=== PATIENT | female | born 1955 | race Caucasian/White ===

== ENCOUNTER 2020-07-06 01:04 | Inpatient (IN) ==
[2020-07-06] MEDS ORDERED: SODIUM CHLORIDE 0.9% 1000ML 1,000 ML IV SCH (01:30)
[2020-07-06] MEDS ORDERED: ACETAMINOPHEN 1,000 MG/100 ML VIAL IV STA (01:36)
--- NOTE | 2020-07-06 01:50 | Emergency Department Note ---
History of Present Illness General Chief Complaint: Respiratory Problems Stated Complaint: HAVING A HARD TIME BREATHING Time Seen by Provider: 07/06/20 01:14 Source: patient Mode of arrival: ambulatory Limitations: no limitations History of Present Illness Provider Complaint: shortness of breath and chest pain Onset (ago): hour(s) (5) Severity: severe Consistency/Duration: + constant and + progressively worsening Maximum Pain Intensity: 8 Current Pain Intensity: 8 Relieved By: + oxygen, + rest and + upright position Exacerbated By: + lying flat, + exertion, + movement, + coughing and + inspiration Known history of: other (pleurisy) Associated symptoms: + chest pain Treatment prior to arrival: none HPI Narrative: This 65-year-old female patient with significant past medical history of pleurisy presents to the emergency department today for evaluation of shortness of breath. The patient states symptoms began suddenly at 8 PM. She states she has been intermittently feeling short of breath with cough and congestion since March when her was diagnosed with COVID-19. The patient states she got tested at that time due to a headache and cough and was negative. The patient reports sudden onset at 8 PM this evening of substernal chest pain radiating to the upper back which she describes as a ripping type of sensation. Patient reports fever, chills, cough productive of sputum. She denies any hemoptysis. No nausea or vomiting. No hematemesis. No abdominal pa in or flank pain. No diarrhea or constipation. Patient is a current smoker but has been limiting her cigarette use to 8 to 9 cigarettes/day. She does admit to drinking at least 5-6 beers daily. Patient denies any history of PE or DVT. She denies any history of known aneurysm. She denies cardiac history. Related Data Home oxygen amount: none Home Medications Medication Instructions Recorded Confirmed Type atorvastatin 10 mg PO DAILY 07/06/20 07/06/20 History hydrochlorothiazide 25 mg PO DAILY 07/06/20 07/06/20 History levothyroxine 75 mcg PO DAILY 07/06/20 07/06/20 History pantoprazole 20 mg PO DAILY 07/06/20 07/06/20 History Allergies Allergy/AdvReac Type Severity Reaction Status Date / Time No Known Allergies Allergy Unverified 07/06/20 02:56 Past Med/Surg History Medical History GERD (gastroesophageal reflux disease) Hypertension Hypothyroidism Social History Smoking Status: Current every day smoker Preferred Language: Faroese Feels Safe at Home: Yes Review of Systems A total of 10 systems reviewed and were otherwise negative Physical Exam Vital Signs: Vital Signs - 24 hr 07/06/20 01:06 07/06/20 01:17 07/06/20 01:45 Temperature 37.6 C H Temperature Source Temporal Artery Sc an Pulse Rate 135 H Pulse Rate [Apical ] Pulse Rate from Sp O2 Sensor Respiratory Rate 24 Respiratory Effort / Characteristics Non-Labored Respiratory Patter n Regular Blood Pressure 143/83 H Blood Pressure Sallie n 103 Pulse Oximetry 91 84 L Pulse Oximetry [Ex ercises] Pulse Oximetry [Re covery] Oxygen Delivery Me thod Room Air Room Air Nasal Cannula Oxygen Flow Rate 3 Sepsis Recent Feve r Within 48 Hours Yes Sepsis New/Unexpla ined Change in Men karla Status No Sepsis Action Take n by Nursing Physician Notified Oxygen Flow Rate - Titration 3 Pulse Oximetry Pos t Tiitration 97 07/06/20 01:46 07/06/20 01:54 07/06/20 02:00 Temperature Temperature Source Pulse Rate 120 H 119 H Pulse Rate [Apical ] Pulse Rate from Sp O2 Sensor 122 H 120 H Respiratory Rate 19 22 24 Respiratory Effort / Characteristics Non-Labored Respiratory Patter n Blood Pressure 115/81 96/70 L Blood Pressure Sallie n 92 78 Pulse Oximetry 98 99 98 Pulse Oximetry [Ex ercises] Pulse Oximetry [Re covery] Oxygen Delivery Me thod Nasal Cannula Nasal Cannula Nasal Cannula Oxygen Flow Rate 3 3 3 Sepsis Recent Feve r Within 48 Hours Sepsis New/Unexpla ined Change in Men karla Status Sepsis Action Take n by Nursing Oxygen Flow Rate - Titration Pulse Oximetry Pos t Tiitration 07/06/20 02:08 07/06/20 02:15 07/06/20 02:30 Temperature Temperature Source Pulse Rate 114 H 112 H Pulse Rate [Apical ] Pulse Rate from Sp O2 Sensor 113 H 109 H Respiratory Rate 21 22 19 Respiratory Effort / Characteristics Non-Labored Respiratory Patter n Blood Pressure 97/73 L 93/80 L Blood Pressure Sallie n 81 84 Pulse Oximetry 97 95 97 Pulse Oximetry [Ex ercises] Pulse Oximetry [Re covery] Oxygen Delivery Me thod Nasal Cannula Nasal Cannula Room Air Oxygen Flow Rate 3 3 Sepsis Recent Feve r Within 48 Hours Sepsis New/Unexpla ined Change in Men karla Status Sepsis Action Take n by Nursing Oxygen Flow Rate - Titration Pulse Oximetry Pos t Tiitration 07/06/20 02:32 07/06/20 02:37 07/06/20 03:14 Temperature 37.2 C Temperature Source Oral Pulse Rate 105 H Pulse Rate [Apical ] Pulse Rate from Sp O2 Sensor 103 H Respiratory Rate 20 Respiratory Effort / Characteristics Non-Labored Sponta neous Respiratory Patter n Blood Pressure 115/68 Blood Pressure Sallie n 83 Pulse Oximetry 99 97 Pulse Oximetry [Ex ercises] 84 L Pulse Oximetry [Re covery] 90 Oxygen Delivery Me thod Nasal Cannula Room Air Oxygen Flow Rate 3 3 Sepsis Recent Feve r Within 48 Hours Sepsis New/Unexpla ined Change in Men karla Status Sepsis Action Take n by Nursing Oxygen Flow Rate - Titration Pulse Oximetry Pos t Tiitration 07/06/20 03:15 07/06/20 03:30 07/06/20 03:36 Temperature Temperature Source Pulse Rate 95 H 89 92 H Pulse Rate [Apical ] Pulse Rate from Sp O2 Sensor 95 H 89 93 H Respiratory Rate 19 20 20 Respiratory Effort / Characteristics Respiratory Patter n Blood Pressure 88/64 L 93/63 L 91/69 L Blood Pressure Sallie n 72 73 76 Pulse Oximetry 96 96 97 Pulse Oximetry [Ex ercises] Pulse Oximetry [Re covery] Oxygen Delivery Me thod Nasal Cannula Nasal Cannula Nasal Cannula Oxygen Flow Rate 3 3 3 Sepsis Recent Feve r Within 48 Hours Sepsis New/Unexpla ined Change in Men karla Status Sepsis Action Take n by Nursing Oxygen Flow Rate - Titration Pulse Oximetry Pos t Tiitration 07/06/20 03:59 07/06/20 04:01 07/06/20 04:31 Temperature Temperature Source Pulse Rate 91 H 84 Pulse Rate [Apical ] 87 Pulse Rate from Sp O2 Sensor 91 H 96 H Respiratory Rate 16 15 20 Respiratory Effort / Characteristics Non-Labored Sponta neous Respiratory Patter n Blood Pressure 93/59 L 109/69 Blood Pressure Sallie n 70 82 Pulse Oximetry 95 98 93 Pulse Oximetry [Ex ercises] Pulse Oximetry [Re covery] Oxygen Delivery Me thod Nasal Cannula Nasal Cannula Nasal Cannula Oxygen Flow Rate 3 3 3 Sepsis Recent Feve r Within 48 Hours Sepsis New/Unexpla ined Change in Men karla Status Sepsis Action Take n by Nursing Oxygen Flow Rate - Titration Pulse Oximetry Pos t Tiitration Physical Exam: VITALS: Vitals are noted on the nurse's note and reviewed by myself. Patient is tachycardic with a heart rate in the 130s. O2 saturation 84% on room air. Temperature 37.6 C. BP 143/83. GENERAL: This is a 65-year-old white female, short of breath but in no acute distress, nondiaphoretic, well-developed well-nourished. SKIN: The skin was without rashes, erythema, edema, or bruising. There is no tenting of the skin. Capillary refill less than 2 seconds. HEAD: Normocephalic atraumatic. EYES: Conjunctivae without injection, sclerae without icterus. NECK: Supple without nuchal rigidity. No lymphadenopathy. No JVD. HEART: Regular rate and rhythm without murmurs gallops or rubs. LUNGS: Clear to auscultation bilaterally without wheezes, rales or rhonchi. No retractions or accessory muscle use. ABDOMEN: Positive bowel sounds x 4. Soft, nontender, without masses or organomegaly. Muller sign negative. No guarding or rebound tenderness. MUSCULOSKELETAL: No muscle atrophy, erythema, or edema noted. Full range of motion without joint tenderness in all extremities. No tenderness to palpation. Normal gait. Strength 5/5 throughout. NEURO: Patient was alert and oriented to person place and time. No focal neurological deficits. Course Course The patient was seen and evaluated as above. An order was placed for continuous cardiac monitoring. The monitor shows a sinus tachycardia at a rate of 130 bpm. IV access obtained, labs drawn. Patient medicated with IV fluids and acetaminophen. X-ray imaging performed and reviewed by myself as noted. Labs reviewed by myself. CT imaging performed and reviewed by myself and radiologist as noted. I discussed the findings with the patient at bedside. She was reassessed and is feeling somewhat better. Heart rate is improving and in the 90s. I discussed the case with my attending. She did see and evaluate the patient. Patient medicated with a DuoNeb treatment. She was medicated with cefepime. I discussed the case with Dr. Barth, [facility] hospitalist physician. He did agree to see and evaluate the patient for admission. Administered Medications Magnesium Sulfate/Dextrose (Magnesium Sulfate / D5w) 1 gm in 100 mls @ 50 mls/h r IV NOW STA Stop: 07/06/20 05:23 Last Admin: 07/06/20 03:37 Dose: 50 mls/hr Documented by: [id number] Discontinued Medications Albuterol (Albut/Ipratrop 3mg/0.5mg Neb 3 Ml Vial) 3 ml NEB NOW STA Stop: 07/06/20 03:24 Last Admin: 07/06/20 03:57 Dose: 3 ml Documented by: [id number] Cefepime HCl (Cefepime 2,000 Mg/20 Ml Vial) Confirm Administered Dose 2,000 mg .ROUTE .STK-MED ONE Stop: 07/06/20 04:24 Last Admin: 07/06/20 04:37 Dose: 2,000 mg Documented by: [id number] Sodium Chloride (Nss 1000ml) 1,000 mls @ 999 mls/hr IV .Q1H1M NAINA Stop: 07/06/20 02:30 Last Infusion: 07/06/20 03:21 Dose: 0 mls/hr Documented by: [id number] Admin: 07/06/20 01:55 Dose: 999 mls/hr Documented by: [id number] Acetaminophen (Ofirmev) 1,000 mg in 100 mls @ 400 mls/hr IV NOW STA Stop: 07/06/20 01:50 Last Infusion: 07/06/20 02:10 Dose: 0 mls/hr Documented by: [id number] Admin: 07/06/20 01:55 Dose: 400 mls/hr Documented by: [id number] Cefepime HCl (Maxipime) 2,000 mg in 20 mls @ 5 mls/min IV NOW STA; Protocol Stop: 07/06/20 03:03 Last Admin: 07/06/20 04:37 Dose: Not Given Documented by: [id number] Doxycycline Hyclate 100 mg/ (Dextrose) 110 mls @ 50 mls/hr IV NOW STA Stop: 07/06/20 05:31 Last Admin: 07/06/20 03:51 Dose: Not Given Documented by: [id number] Ioversol (Optiray 320 125ml) 125 ml IV ONCE ONE Stop: 07/06/20 03:00 Last Admin: 07/06/20 02:59 Dose: 118 ml Documented by: [id number] Ipratropium [place] (Ipratropium [place] Neb Soln 0.02% 2.5 Ml Vial) 0.5 mg INH NOW STA Stop: 07/06/20 03:25 Last Admin: 07/06/20 03:57 Dose: Not Given Documented by: [id number] Levalbuterol HCl (Levalbuterol 1.25mg/0.5ml Neb) 1.25 mg INH NOW STA Stop: 07/06/20 03:25 Last Admin: 07/06/20 03:57 Dose: Not Given Documented by: [id number] Methylprednisolone (Methylprednisolone 40 Mg/Ml Vial) 40 mg IV NOW STA Stop: 07/06/20 03:21 Last Admin: 07/06/20 03:37 Dose: 40 mg Documented by: [id number] Potassium Chloride (Potassium Chloride Crtab 20 Meq Tabcr) 40 meq PO NOW STA Stop: 07/06/20 03:22 Last Admin: 07/06/20 03:37 Dose: 40 meq Documented by: [id number] Medical Decision Making Differential Diagnosis + acute exacerbation of chronic obstructive airways disease, + congestive heart failure, + community acquired pneumonia, + asthma with exacerbation, + pulmonary embolism, + COPD, + bronchitis, + pneumothorax, + pneumonia, + pleural effusion, + CHF, + ACS and + aspiration Home Medications Current Medication List: was personally reviewed by me Laboratory Data Attestation: I reviewed the patient's lab results. Leukocytosis of 23,000. No significant anemia or thrombocytopenia. Coags normal. Renal, hepatic function and electrolytes without significant abnormality. Troponin negative. Lactic acid 1.3. Urinalysis negative for evidence of infection. Blood cultures pending. Result diagrams: 07/06/20 01:56 07/06/20 01:56 Lab Results 07/06/20 07/06/20 07/06/20 Range/Units 01:54 01:54 01:54 WBC (4.8-10.8) K/uL RBC (4.2-5.4) M/uL Hgb (12.0-16.0) g/dL POC Hgb (12.0-16.0) g/dl Hct (37-47) % POC Hct (37-47) % MCV (80-100) fL MCH (25-34) pg MCHC (32-36) g/dL RDW Std Deviation (36.4-46.3) fL RDW Coeff of Angela (11.5-14.5) % Plt Count (130-400) K/uL MPV (7.4-10.4) fL Immature Gran % (Auto) % Neut % (Auto) % Lymph % (Auto) % [place] % (Auto) % Eos % (Auto) % Baso % (Auto) % Neut # (Auto) (1.4-6.5) K/uL Lymph # (Auto) (1.2-3.4) K/uL [place] # (Auto) (0.11-0.59) K/uL Eos # (Auto) (0-0.5) K/uL Baso # (Auto) (0-0.2) K/uL Immature Gran # (Auto) (0.00-0.02) K/uL PT (9.0-12.0) Seconds INR (0.9-1.1) APTT (21.0-31.0) Seconds PTT Ratio ABG pH (7.35-7.45) ABG pCO2 (35-46) mmHg ABG pO2 (80-95) mmHg ABG HCO3 (19-24) mmol/L ABG O2 Saturation (90-95) % ABG Base Excess (-9-1.8) mEq/L Rian Test (Pos) Oxygen Given POC Sodium (135-144) mmol/L Sodium (136-145) mmol/L POC Potassium (3.3-5.0) mmol/L Potassium (3.5-5.1) mmol/L POC Chloride (101-112) mmol/L Chloride (98-107) mmol/L Carbon Dioxide (21-32) mmol/L POC Total CO2 (24-31) mmol/L Anion Gap (3-11) POC Anion Gap (16-25) mmol/L POC BUN (7-18) mg/dl BUN (7-18) mg/dl Creatinine (0.6-1.2) mg/dl POC Creatinine (0.6-1.3) mg/dl Est Cr Clr Drug Dosing ml/min Est GFR ( Amer) Est GFR (Non-Af Amer) BUN/Creatinine Ratio (10-20) Glucose (70-99) mg/dl POC Glucose (other) (70-99) mg/dl Lactate (0.4-2.0) mmol/L Calcium (8.5-10.1) mg/dl POC Ioniz Calcium Semaj (1.12-1.32) mmol/l Magnesium (1.8-2.4) mg/dl Total Bilirubin (0.2-1) mg/dl AST (15-37) U/L ALT (12-78) U/L Alkaline Phosphatase (45-117) U/L Troponin I (0-0.045) ng/ml Total Protein (6.4-8.2) gm/dl Albumin (3.4-5.0) gm/dl Globulin (2.5-4.0) gm/dl Albumin/Globulin Ratio (0.9-2) Procalcitonin (0-0.5) ng/ml Urine Color Urine Appearance (Clear) Urine pH (4.5-7.5) Ur Specific [place] (1.000-1.030) Urine Protein (Negative) Urine Glucose (UA) (Negative) Urine Ketones (Negative) Urine Blood (Negative) Urine Nitrite (Negative) Urine Bilirubin (Negative) Urine Urobilinogen (Negative) Ur Leukocyte Esterase (Negative) Urine WBC (Auto) (0-5) /hpf Urine RBC (Auto) (0-4) /hpf U Hyaline Cast (Auto) (0-5) /lpf U Epithel Cells (Auto) (0-5) /lpf Urine Bacteria (Auto) (Negative) Ethyl Alcohol mg/dL (0-3) mg/dl COVID-19 Eval Order CovFluRsv at [facility] SARS-CoV-2 (PCR) NEGATIVE (Negative) Influenza Type A (PCR) Negative (Neg) Influ A Molecular Assay Cancelled Influenza Type B (PCR) Negative (Neg) Influ B Molecular Assay Cancelled RSV (RT-PCR) Negative (Neg) 07/06/20 07/06/20 07/06/20 Range/Units 01:54 01:56 01:56 WBC 23.67 H (4.8-10.8) K/uL RBC 4.86 (4.2-5.4) M/uL Hgb 16.2 H (12.0-16.0) g/dL POC Hgb (12.0-16.0) g/dl Hct 45.1 (37-47) % POC Hct (37-47) % MCV 92.8 (80-100) fL MCH 33.3 (25-34) pg MCHC 35.9 (32-36) g/dL RDW Std Deviation 44.5 (36.4-46.3) fL RDW Coeff of Angela 13.0 (11.5-14.5) % Plt Count 335 (130-400) K/uL MPV 9.9 (7.4-10.4) fL Immature Gran % (Auto) 0.3 % Neut % (Auto) 92.9 % Lymph % (Auto) 1.9 % [place] % (Auto) 4.5 % Eos % (Auto) 0.2 % Baso % (Auto) 0.2 % Neut # (Auto) 21.97 H (1.4-6.5) K/uL Lymph # (Auto) 0.46 L (1.2-3.4) K/uL [place] # (Auto) 1.07 H (0.11-0.59) K/uL Eos # (Auto) 0.05 (0-0.5) K/uL Baso # (Auto) 0.04 (0-0.2) K/uL Immature Gran # (Auto) 0.08 H (0.00-0.02) K/uL PT (9.0-12.0) Seconds INR (0.9-1.1) APTT (21.0-31.0) Seconds PTT Ratio ABG pH (7.35-7.45) ABG pCO2 (35-46) mmHg ABG pO2 (80-95) mmHg ABG HCO3 (19-24) mmol/L ABG O2 Saturation (90-95) % ABG Base Excess (-9-1.8) mEq/L Rian Test (Pos) Oxygen Given POC Sodium (135-144) mmol/L Sodium 140 (136-145) mmol/L POC Potassium (3.3-5.0) mmol/L Potassium 3.2 L (3.5-5.1) mmol/L POC Chloride (101-112) mmol/L Chloride 105 (98-107) mmol/L Carbon Dioxide 28 (21-32) mmol/L POC Total CO2 (24-31) mmol/L Anion Gap 7.0 (3-11) POC Anion Gap (16-25) mmol/L POC BUN (7-18) mg/dl BUN 8 (7-18) mg/dl Creatinine 0.64 (0.6-1.2) mg/dl POC Creatinine (0.6-1.3) mg/dl Est Cr Clr Drug Dosing 77.7 ml/min Est GFR ( Amer) 110.1 Est GFR (Non-Af Amer) 95.0 BUN/Creatinine Ratio 12.8 (10-20) Glucose 154 H (70-99) mg/dl POC Glucose (other) (70-99) mg/dl Lactate (0.4-2.0) mmol/L Calcium 9.0 (8.5-10.1) mg/dl POC Ioniz Calcium Semaj (1.12-1.32) mmol/l Magnesium 1.9 (1.8-2.4) mg/dl Total Bilirubin 0.4 (0.2-1) mg/dl AST 26 (15-37) U/L ALT 52 (12-78) U/L Alkaline Phosphatase 89 (45-117) U/L Troponin I < 0.015 (0-0.045) ng/ml Total Protein 8.2 (6.4-8.2) gm/dl Albumin 4.2 (3.4-5.0) gm/dl Globulin 4.0 (2.5-4.0) gm/dl Albumin/Globulin Ratio 1.1 (0.9-2) Procalcitonin < 0.05 (0-0.5) ng/ml Urine Color Urine Appearance (Clear) Urine pH (4.5-7.5) Ur Specific [place] (1.000-1.030) Urine Protein (Negative) Urine Glucose (UA) (Negative) Urine Ketones (Negative) Urine Blood (Negative) Urine Nitrite (Negative) Urine Bilirubin (Negative) Urine Urobilinogen (Negative) Ur Leukocyte Esterase (Negative) Urine WBC (Auto) (0-5) /hpf Urine RBC (Auto) (0-4) /hpf U Hyaline Cast (Auto) (0-5) /lpf U Epithel Cells (Auto) (0-5) /lpf Urine Bacteria (Auto) (Negative) Ethyl Alcohol mg/dL (0-3) mg/dl COVID-19 Eval Order SARS-CoV-2 (PCR) (Negative) Influenza Type A (PCR) (Neg) Influ A Molecular Assay Influenza Type B (PCR) (Neg) Influ B Molecular Assay RSV (RT-PCR) (Neg) 07/06/20 07/06/20 07/06/20 Range/Units 01:56 01:56 02:05 WBC (4.8-10.8) K/uL RBC (4.2-5.4) M/uL Hgb (12.0-16.0) g/dL POC Hgb 17.0 H (12.0-16.0) g/dl Hct (37-47) % POC Hct 50 H (37-47) % MCV (80-100) fL MCH (25-34) pg MCHC (32-36) g/dL RDW Std Deviation (36.4-46.3) fL RDW Coeff of Angela (11.5-14.5) % Plt Count (130-400) K/uL MPV (7.4-10.4) fL Immature Gran % (Auto) % Neut % (Auto) % Lymph % (Auto) % [place] % (Auto) % Eos % (Auto) % Baso % (Auto) % Neut # (Auto) (1.4-6.5) K/uL Lymph # (Auto) (1.2-3.4) K/uL [place] # (Auto) (0.11-0.59) K/uL Eos # (Auto) (0-0.5) K/uL Baso # (Auto) (0-0.2) K/uL Immature Gran # (Auto) (0.00-0.02) K/uL PT 9.9 (9.0-12.0) Seconds INR 1.0 (0.9-1.1) APTT 25.3 (21.0-31.0) Seconds PTT Ratio 1.0 ABG pH (7.35-7.45) ABG pCO2 (35-46) mmHg ABG pO2 (80-95) mmHg ABG HCO3 (19-24) mmol/L ABG O2 Saturation (90-95) % ABG Base Excess (-9-1.8) mEq/L Rian Test (Pos) Oxygen Given POC Sodium 140 (135-144) mmol/L Sodium (136-145) mmol/L POC Potassium 3.3 (3.3-5.0) mmol/L Potassium (3.5-5.1) mmol/L POC Chloride 98 L (101-112) mmol/L Chloride (98-107) mmol/L Carbon Dioxide (21-32) mmol/L POC Total CO2 30 (24-31) mmol/L Anion Gap (3-11) POC Anion Gap 16.0 (16-25) mmol/L POC BUN 8 (7-18) mg/dl BUN (7-18) mg/dl Creatinine (0.6-1.2) mg/dl POC Creatinine 0.4 L (0.6-1.3) mg/dl Est Cr Clr Drug Dosing ml/min Est GFR ( Amer) Est GFR (Non-Af Amer) BUN/Creatinine Ratio (10-20) Glucose (70-99) mg/dl POC Glucose (other) 159 H (70-99) mg/dl Lactate 1.3 (0.4-2.0) mmol/L Calcium (8.5-10.1) mg/dl POC Ioniz Calcium Semaj 1.14 (1.12-1.32) mmol/l Magnesium (1.8-2.4) mg/dl Total Bilirubin (0.2-1) mg/dl AST (15-37) U/L ALT (12-78) U/L Alkaline Phosphatase (45-117) U/L Troponin I (0-0.045) ng/ml Total Protein (6.4-8.2) gm/dl Albumin (3.4-5.0) gm/dl Globulin (2.5-4.0) gm/dl Albumin/Globulin Ratio (0.9-2) Procalcitonin (0-0.5) ng/ml Urine Color Urine Appearance (Clear) Urine pH (4.5-7.5) Ur Specific [place] (1.000-1.030) Urine Protein (Negative) Urine Glucose (UA) (Negative) Urine Ketones (Negative) Urine Blood (Negative) Urine Nitrite (Negative) Urine Bilirubin (Negative) Urine Urobilinogen (Negative) Ur Leukocyte Esterase (Negative) Urine WBC (Auto) (0-5) /hpf Urine RBC (Auto) (0-4) /hpf U Hyaline Cast (Auto) (0-5) /lpf U Epithel Cells (Auto) (0-5) /lpf Urine Bacteria (Auto) (Negative) Ethyl Alcohol mg/dL (0-3) mg/dl COVID-19 Eval Order SARS-CoV-2 (PCR) (Negative) Influenza Type A (PCR) (Neg) Influ A Molecular Assay Influenza Type B (PCR) (Neg) Influ B Molecular Assay RSV (RT-PCR) (Neg) 07/06/20 07/06/20 07/06/20 Range/Units 03:18 03:59 03:59 WBC (4.8-10.8) K/uL RBC (4.2-5.4) M/uL Hgb (12.0-16.0) g/dL POC Hgb (12.0-16.0) g/dl Hct (37-47) % POC Hct (37-47) % MCV (80-100) fL MCH (25-34) pg MCHC (32-36) g/dL RDW Std Deviation (36.4-46.3) fL RDW Coeff of Angela (11.5-14.5) % Plt Count (130-400) K/uL MPV (7.4-10.4) fL Immature Gran % (Auto) % Neut % (Auto) % Lymph % (Auto) % [place] % (Auto) % Eos % (Auto) % Baso % (Auto) % Neut # (Auto) (1.4-6.5) K/uL Lymph # (Auto) (1.2-3.4) K/uL [place] # (Auto) (0.11-0.59) K/uL Eos # (Auto) (0-0.5) K/uL Baso # (Auto) (0-0.2) K/uL Immature Gran # (Auto) (0.00-0.02) K/uL PT (9.0-12.0) Seconds INR (0.9-1.1) APTT (21.0-31.0) Seconds PTT Ratio ABG pH 7.37 (7.35-7.45) ABG pCO2 45 (35-46) mmHg ABG pO2 68 L (80-95) mmHg ABG HCO3 25 H (19-24) mmol/L ABG O2 Saturation 94.2 (90-95) % ABG Base Excess -0.3 (-9-1.8) mEq/L Rian Test Pos (Pos) Oxygen Given 3L POC Sodium (135-144) mmol/L Sodium (136-145) mmol/L POC Potassium (3.3-5.0) mmol/L Potassium (3.5-5.1) mmol/L POC Chloride (101-112) mmol/L Chloride (98-107) mmol/L Carbon Dioxide (21-32) mmol/L POC Total CO2 (24-31) mmol/L Anion Gap (3-11) POC Anion Gap (16-25) mmol/L POC BUN (7-18) mg/dl BUN (7-18) mg/dl Creatinine (0.6-1.2) mg/dl POC Creatinine (0.6-1.3) mg/dl Est Cr Clr Drug Dosing ml/min Est GFR ( Amer) Est GFR (Non-Af Amer) BUN/Creatinine Ratio (10-20) Glucose (70-99) mg/dl POC Glucose (other) (70-99) mg/dl Lactate (0.4-2.0) mmol/L Calcium (8.5-10.1) mg/dl POC Ioniz Calcium Semaj (1.12-1.32) mmol/l Magnesium (1.8-2.4) mg/dl Total Bilirubin (0.2-1) mg/dl AST (15-37) U/L ALT (12-78) U/L Alkaline Phosphatase (45-117) U/L Troponin I (0-0.045) ng/ml Total Protein (6.4-8.2) gm/dl Albumin (3.4-5.0) gm/dl Globulin (2.5-4.0) gm/dl Albumin/Globulin Ratio (0.9-2) Procalcitonin (0-0.5) ng/ml Urine Color Yellow Urine Appearance Clear (Clear) Urine pH 6.0 (4.5-7.5) Ur Specific [place] > 1.045 H (1.000-1.030) Urine Protein Trace H (Negative) Urine Glucose (UA) Negative (Negative) Urine Ketones Negative (Negative) Urine Blood Trace H (Negative) Urine Nitrite Negative (Negative) Urine Bilirubin Negative (Negative) Urine Urobilinogen Negative (Negative) Ur Leukocyte Esterase Negative (Negative) Urine WBC (Auto) 1-5 (0-5) /hpf Urine RBC (Auto) 5-10 H (0-4) /hpf U Hyaline Cast (Auto) 1-5 (0-5) /lpf U Epithel Cells (Auto) 20-30 H (0-5) /lpf Urine Bacteria (Auto) Negative (Negative) Ethyl Alcohol mg/dL < 3.0 (0-3) mg/dl COVID-19 Eval Order SARS-CoV-2 (PCR) (Negative) Influenza Type A (PCR) (Neg) Influ A Molecular Assay Influenza Type B (PCR) (Neg) Influ B Molecular Assay RSV (RT-PCR) (Neg) Imaging Data Attestation: I personally reviewed and interpreted this imaging study as follows: My Impression: Chest x-ray. Findings: A chest x-ray was performed and revealed no pneumothorax, effusion, infiltrate, pulmonary edema, free air under the diaphragm, or wide mediastinum. Radiologist's Impression: CTA OTHER - CTA CHEST FOR DISSECTION WO/WITH: No thoracic aortic aneurysm or dissection. No evidence for acute intramural hematoma. Diffuse aortic atherosclerosis. No CT evidence for pulmonary embolism. The lungs are moderately emphysematous. Mild bilateral parenchymal scarring. 6 mm left upper lobe nodule. No acute consolidation. No pathologic intrathoracic lymphadenopathy. Fatty liver. 12 mm left hepatic hypodensity which maybe a cyst. 1.6 cm left adrenal nodule. Multilevel degenerative changes of the thoracic spine. Radiologist: Clifton Braxton M.D. ECG Data Attestation: I personally reviewed and interpreted this ECG as follows: Prior ECG tracings: not available for review Interpretation: Normal sinus rhythm with ventricular rate of 100 bpm. There is occasional PVCs noted. Prolonged QT with a QTC of 492. No ST elevation or depression. No T wave inversion. Blood Pressure Blood Pressure Findings: Low blood pressure Blood Pressure Disposition: further management by hospitalist NEVA Narrative This 65-year-old female patient presents to the emergency department today for evaluation of dyspnea. Upon arrival, patient was found to be hypoxic. She was tachycardic with a heart rate of 130 bpm. Patient's dyspnea is positional in nature, she is having difficulty lying flat. Patient was hydrated with IV fluids. Labs with a leukocytosis of 23,000. COVID-19 testing and influenza testing negative. She was ultimately medicated with cefepime due to sepsis, though unclear source - suspect pulmonary. CT imaging performed to rule out dissection or PE given her complaints of chest and back pain and a ripping sensation. This was negative for dissection or PE, but the patient was found to have emphysematous changes within her lungs. She is a long-term smoker. She does also admit to drinking approximately 6 beers per day. Patient will be admitted to the hospitalist service for further evaluation management of her symptoms. Please see hospitalist dictation regarding ongoing management care of this patient. The chart was completed utilizing SwitchNote Speech voice recognition software. Grammatical errors, random word insertions, pronoun errors, and incomplete sentences are an occasional consequence of this system due to software limitations, ambient noise, and hardware issues. Any formal questions or c oncerns about the content, text, or information contained within the body of this dictation should be directly addressed to the provider for clarification. Impression & Plan Sepsis, Hypoxia, Tachycardia Discharge Plan Visit Data Chief Complaint: Respiratory Problems Stated Complaint: HAVING A HARD TIME BREATHING ED Provider: [facility] Mid[facility] Provider: Liliane Booker Discharge Problem: Sepsis, Hypoxia, Tachycardia Patient Disposition: Admitted As Inpatient Discharge Instructions Interventions: ED Discharge Assessment Last Done: 07/06/20 04:34 Forms Stand Alone Forms: [employer] Prescriptions Prescriptions: No Action atorvastatin 10 mg tablet 10 mg PO DAILY RF: 0 pantoprazole 20 mg tablet,delayed release (DR/EC) 20 mg PO DAILY RF: 0 levothyroxine 75 mcg tablet 75 mcg PO DAILY RF: 0 hydrochlorothiazide 25 mg tablet 25 mg PO DAILY RF: 0 Referrals Referrals: Liliane Pena DO [Primary Care Provider] -
[2020-07-06 02:08] LABS: Hematocrit (blood only) 45.1 % (37-47); Hemoglobin 16.2 g/dL (12.0-16.0); Mean Corpuscular Hemoglobin 33.3 pg (25-34); Mean Corpuscular Hgb Conc 35.9 g/dL (32-36); Mean Corpuscular Volume 92.8 fL (80-100); Mean Platelet Volume 9.9 fL (7.4-10.4); Platelet Count 335 K/uL (130-400); RDW Standard Deviation 44.5 fL (36.4-46.3); Red Blood Count 4.86 M/uL (4.2-5.4); White Blood Count 23.67 K/uL (4.8-10.8)
[2020-07-06 02:17] LABS: iSTAT Creatinine 0.4 mg/dl (0.6-1.3); iSTAT Ionized Calcium 1.14 mmol/l (1.12-1.32); iSTAT Potassium 3.3 mmol/L (3.3-5.0)
[2020-07-06 02:23] LABS: Partial Thromboplastin Time 25.3 Seconds (21.0-31.0); Prothrombin Time 9.9 Seconds (9.0-12.0)
[2020-07-06 02:26] LABS: Alanine Aminotransferase 52 U/L (12-78); Albumin Level 4.2 gm/dl (3.4-5.0); Aspartate Aminotransferase 26 U/L (15-37); BUN Creatinine Ratio 12.8 (10-20); Blood Urea Nitrogen 8 mg/dl (7-18); Carbon Dioxide 28 mmol/L (21-32); Chloride 105 mmol/L (98-107); Creatinine Clr Calc Pharmacy 77.7 ml/min; Est GFR (African American) 110.1; Glucose 154 mg/dl (70-99); Magnesium 1.9 mg/dl (1.8-2.4); Potassium 3.2 mmol/L (3.5-5.1); Sodium 140 mmol/L (136-145)
[2020-07-06 02:30] LABS: Albumin Globulin Ratio 1.1 (0.9-2); Alkaline Phosphatase 89 U/L (45-117); Bilirubin,Total 0.4 mg/dl (0.2-1); Total Protein 8.2 gm/dl (6.4-8.2); Troponin I < 0.015 ng/ml (0-0.045)
[2020-07-06 02:38] LABS: Basophils # (auto) 0.04 K/uL (0-0.2); Basophils % (auto) 0.2 %; Eosinophils # (auto) 0.05 K/uL (0-0.5); Eosinophils % (auto) 0.2 %; Immature Granulocytes # (auto) 0.08 K/uL (0.00-0.02); Immature Granulocytes % (auto) 0.3 %; Lymphocytes # (auto) 0.46 K/uL (1.2-3.4); Lymphocytes % (auto) 1.9 %; Monocytes # (auto) 1.07 K/uL (0.11-0.59); Monocytes % (auto) 4.5 %; Neutrophils # (auto) 21.97 K/uL (1.4-6.5); Neutrophils % (auto) 92.9 %
[2020-07-06 02:53] LABS: Influenza A virus by PCR Negative (Neg); Influenza B virus by PCR Negative (Neg); RSV by PCR Negative (Neg); SARS CoV2 RNA(COVID-19) InHosp NEGATIVE (Negative)
[2020-07-06] MEDS ORDERED: OPTIRAY 320 125ml IV ONE (02:59)
[2020-07-06] MEDS ORDERED: CEFEPIME 2,000 MG/20 ML VIAL IV STA (03:00)
[2020-07-06] MEDS ORDERED: DOXYCYCLINE HYCLATE 100 MG in DEXTROSE 5% 100 ML IV STA (03:20)
[2020-07-06] MEDS ORDERED: POTASSIUM CHLORIDE CRTAB 20 MEQ TABCR PO STA (03:21)
[2020-07-06] MEDS ORDERED: XOPENEX/ATROVENT 1.25mg/0.5MG NEB COMBO NEB STA (03:21)
[2020-07-06] MEDS ORDERED: ALBUT/IPRATROP 3MG/0.5MG NEB 3 ML VIAL NEB STA (03:23)
[2020-07-06] MEDS ORDERED: LEVALBUTEROL 1.25MG/0.5ML NEB INH STA (03:24)
[2020-07-06] MEDS ORDERED: MAGNESIUM SULFATE / D5W 1 GM/100 ML BAG IV STA (03:24)
[2020-07-06] MEDS ORDERED: IPRATROPIUM BROMIDE NEB SOLN 0.02% 2.5 ML VIAL INH STA (03:24)
[2020-07-06 03:26] LABS: Appearance Urine Clear (Clear); Bacteria Urine Automated Negative (Negative); Bilirubin Urine Negative (Negative); Blood Urine Trace (Negative); Color Urine Yellow; Epithelial Cell Urine Auto 20-30 /lpf (0-5); Glucose Urine UA Negative (Negative); Ketones Urine Negative (Negative); Leukocyte Esterase Urine Negative (Negative); Nitrite Urine Negative (Negative); Protein Urine Trace (Negative); Specific Gravity Urine > 1.045 (1.000-1.030); Urobilinogen Urine Negative (Negative)
[2020-07-06] MEDS ORDERED: AMPICILLIN/SULBACTAM SOD 3,000 MG in 0.9 % SODIUM CHLORIDE 100 ML IV STA (03:47)
--- NOTE | 2020-07-06 03:48 | History & Physical Report ---
Date of Service July 06, 2020 Assessment & Plan (1) Acute hypoxemic respiratory failure: Emphysema on initial CT read History spontaneous pneumothorax status post thoracotomy No formal diagnosis of COPD outpatient. COPD exacerbation secondary to possible aspiration pneumonitis Possible sepsis hypertension, BP on the lower side hyperlipidemia on statin Rx hypothyroidism, euthyroid as of recent outpatient TSH Hypokalemia secondary diuretic Rx Hyperglycemia rule out DM At risk alcohol intake Incidental finding of solitary pulmonary nodule on CT chest initial read ongoing tobacco abuse. GMF Cultures, Unasyn for possible aspiration pneumonitis Swallow eval, aspiration precautions Nebs RTC, prednisone course for presumptive COPD exacerbation Pulmonary consult if without improvement Appropriate to hold home diuretic for now given low BP and low potassium levels. Check hemoglobin A1c Watch out for alcohol withdrawal Initiate HOMA S if with signs DT precautions, Ativan as needed Check hemoglobin A1c Follow official CT chest results. Outpatient follow-up surveillance imaging for SPN. Nicotine patch as needed DVT prophylaxis per Lovenox subcu Full code Text document was generated using [employer] voice recognition software. It may contain grammatical or spelling errors. Kindly contact undersigned for clarification of any documentation item in question. History of Present Illness Chief Complaint: Shortness of breath Primary Care Provider: Liliane Pena, History obtained from patient, family, and records. Medical history significant for hypertension, hyperlipidemia, hypothyroidism, history spontaneous pneumothorax status post thoracotomy as per records, daily alcohol intake, ongoing tobacco abuse. 2 weeks history of cough symptoms productive of white-yellow sputum associated with chest pain worse with coughing, shortness of breath worse on exertion. Admits to coughing with meals/water intake if she is not careful. No fluid retention as per patient. No known recent COVID-19 contacts. Worsening discomfort yesterday with fever chills. Patient brought to the ER for evaluation by . Medical History as above Surgical History : Thoracotomy, back surgery Family History : Heart disease, pancreatic cancer Personal/Social history : Half pack daily, 6 beers daily, retired [employer] Allergies Allergy/AdvReac Type Severity Reaction Status Date / Time No Known Allergies Allergy Unverified 07/06/20 02:56 Home Medications Medication Instructions Recorded Confirmed Type atorvastatin 10 mg PO DAILY 07/06/20 07/06/20 History hydrochlorothiazide 25 mg PO DAILY 07/06/20 07/06/20 History levothyroxine 75 mcg PO DAILY 07/06/20 07/06/20 History pantoprazole 20 mg PO DAILY 07/06/20 07/06/20 History Past Med/Surg History Medical History GERD (gastroesophageal reflux disease) Hypertension Hypothyroidism Social History Smoking Status: Current every day smoker Second Hand Exposure: No; Do You Dip or Chew Tobacco: No; Hx Alcohol Use: Yes Hx Substance Use: Yes Last Used Substance: Hours (ago) Preferred Language: Greek Beliefs That Will Affect Care: None Current Living Situation: Spouse Feels Safe at Home: Yes Review of Systems Review of Systems: As per HPI, all 10 systems reviewed, all other ROS negative Physical Exam Physical Exam: GENERAL: Slightly uncomfortable, no respiratory distress SKIN: Normal color, warm HEENT: [place] palpebral conjunctivae, no ptosis, dry buccal mucosa, nasal cannula in place NECK : Supple, no tenderness CHEST : Decreased breath sounds, expiratory wheezes, no tenderness HEART : Tachycardic, no obvious murmurs ABDOMEN: Some distention, nontender EXTREMITIES : No LE swelling/tenderness, no other conspicuous deformities noted NEUROLOGIC : Coherent, no facial asymmetry, no other gross focality Results & Data Results & Data ([facility]) Vital Signs (Past 12 Hours) Vital Signs Temp Pulse Resp BP Pulse Ox Pulse Ox Pulse Ox 07/06/20 03:14 97 84 L 90 07/06/20 02:37 37.2 C 07/06/20 02:32 105 H 20 115/68 99 07/06/20 02:30 19 97 07/06/20 02:15 112 H 22 93/80 L 95 07/06/20 02:08 114 H 21 97/73 L 97 07/06/20 02:00 119 H 24 96/70 L 98 07/06/20 01:54 22 99 07/06/20 01:46 120 H 19 115/81 98 07/06/20 01:17 84 L 07/06/20 01:06 37.6 C H 135 H 24 143/83 H 91 Laboratory Results Laboratory Results WBC 23.67 K/uL (4.8-10.8) H 07/06/20 01:56 RBC 4.86 M/uL (4.2-5.4) 07/06/20 01:56 Hgb 16.2 g/dL (12.0-16.0) H 07/06/20 01:56 POC Hgb 17.0 g/dl (12.0-16.0) H 07/06/20 02:05 Hct 45.1 % (37-47) 07/06/20 01:56 POC Hct 50 % (37-47) H 07/06/20 02:05 MCV 92.8 fL (80-100) 07/06/20 01:56 MCH 33.3 pg (25-34) 07/06/20 01:56 MCHC 35.9 g/dL (32-36) 07/06/20 01:56 RDW Std Deviation 44.5 fL (36.4-46.3) 07/06/20 01:56 RDW Coeff of Angela 13.0 % (11.5-14.5) 07/06/20 01:56 Plt Count 335 K/uL (130-400) 07/06/20 01:56 MPV 9.9 fL (7.4-10.4) 07/06/20 01:56 Immature Gran % (Auto) 0.3 % 07/06/20 01:56 Neut % (Auto) 92.9 % 07/06/20 01:56 Lymph % (Auto) 1.9 % 07/06/20 01:56 Miner % (Auto) 4.5 % 07/06/20 01:56 Eos % (Auto) 0.2 % 07/06/20 01:56 Baso % (Auto) 0.2 % 07/06/20 01:56 Neut # (Auto) 21.97 K/uL (1.4-6.5) H 07/06/20 01:56 Lymph # (Auto) 0.46 K/uL (1.2-3.4) L 07/06/20 01:56 Miner # (Auto) 1.07 K/uL (0.11-0.59) H 07/06/20 01:56 Eos # (Auto) 0.05 K/uL (0-0.5) 07/06/20 01:56 Baso # (Auto) 0.04 K/uL (0-0.2) 07/06/20 01:56 Immature Gran # (Auto) 0.08 K/uL (0.00-0.02) H 07/06/20 01:56 PT 9.9 Seconds (9.0-12.0) 07/06/20 01:56 INR 1.0 (0.9-1.1) 07/06/20 01:56 APTT 25.3 Seconds (21.0-31.0) 07/06/20 01:56 PTT Ratio 1.0 07/06/20 01:56 POC Sodium 140 mmol/L (135-144) 07/06/20 02:05 Sodium 140 mmol/L (136-145) 07/06/20 01:56 POC Potassium 3.3 mmol/L (3.3-5.0) 07/06/20 02:05 Potassium 3.2 mmol/L (3.5-5.1) L 07/06/20 01:56 POC Chloride 98 mmol/L (101-112) L 07/06/20 02:05 Chloride 105 mmol/L (98-107) 07/06/20 01:56 Carbon Dioxide 28 mmol/L (21-32) 07/06/20 01:56 POC Total CO2 30 mmol/L (24-31) 07/06/20 02:05 Anion Gap 7.0 (3-11) 07/06/20 01:56 POC Anion Gap 16.0 mmol/L (16-25) 07/06/20 02:05 POC BUN 8 mg/dl (7-18) 07/06/20 02:05 BUN 8 mg/dl (7-18) 07/06/20 01:56 Creatinine 0.64 mg/dl (0.6-1.2) 07/06/20 01:56 POC Creatinine 0.4 mg/dl (0.6-1.3) L 07/06/20 02:05 Est Cr Clr Drug Dosing 77.7 ml/min 07/06/20 01:56 Est GFR ( Amer) 110.1 07/06/20 01:56 Est GFR (Non-Af Amer) 95.0 07/06/20 01:56 BUN/Creatinine Ratio 12.8 (10-20) 07/06/20 01:56 Glucose 154 mg/dl (70-99) H 07/06/20 01:56 POC Glucose (other) 159 mg/dl (70-99) H 07/06/20 02:05 Lactate 1.3 mmol/L (0.4-2.0) 07/06/20 01:56 Calcium 9.0 mg/dl (8.5-10.1) 07/06/20 01:56 POC Ioniz Calcium Semaj 1.14 mmol/l (1.12-1.32) 07/06/20 02:05 Magnesium 1.9 mg/dl (1.8-2.4) 07/06/20 01:56 Total Bilirubin 0.4 mg/dl (0.2-1) 07/06/20 01:56 AST 26 U/L (15-37) 07/06/20 01:56 ALT 52 U/L (12-78) 07/06/20 01:56 Alkaline Phosphatase 89 U/L (45-117) 07/06/20 01:56 Troponin I < 0.015 ng/ml (0-0.045) 07/06/20 01:56 Total Protein 8.2 gm/dl (6.4-8.2) 07/06/20 01:56 Albumin 4.2 gm/dl (3.4-5.0) 07/06/20 01:56 Globulin 4.0 gm/dl (2.5-4.0) 07/06/20 01:56 Albumin/Globulin Ratio 1.1 (0.9-2) 07/06/20 01:56 Procalcitonin < 0.05 ng/ml (0-0.5) 07/06/20 01:54 Urine Color Yellow 07/06/20 03:18 Urine Appearance Clear (Clear) 07/06/20 03:18 Urine pH 6.0 (4.5-7.5) 07/06/20 03:18 Ur Specific Bannister > 1.045 (1.000-1.030) H 07/06/20 03:18 Urine Protein Trace (Negative) H 07/06/20 03:18 Urine Glucose (UA) Negative (Negative) 07/06/20 03:18 Urine Ketones Negative (Negative) 07/06/20 03:18 Urine Blood Trace (Negative) H 07/06/20 03:18 Urine Nitrite Negative (Negative) 07/06/20 03:18 Urine Bilirubin Negative (Negative) 07/06/20 03:18 Urine Urobilinogen Negative (Negative) 07/06/20 03:18 Ur Leukocyte Esterase Negative (Negative) 07/06/20 03:18 Urine WBC (Auto) 1-5 /hpf (0-5) 07/06/20 03:18 Urine RBC (Auto) 5-10 /hpf (0-4) H 07/06/20 03:18 U Hyaline Cast (Auto) 1-5 /lpf (0-5) 07/06/20 03:18 U Epithel Cells (Auto) 20-30 /lpf (0-5) H 07/06/20 03:18 Urine Bacteria (Auto) Negative (Negative) 07/06/20 03:18 COVID-19 Eval Order CovFluRsv at [facility] 07/06/20 01:54 SARS-CoV-2 (PCR) NEGATIVE (Negative) 07/06/20 01:54 Influenza Type A (PCR) Negative (Neg) 07/06/20 01:54 Influ A Molecular Assay Cancelled 07/06/20 01:54 Influenza Type B (PCR) Negative (Neg) 07/06/20 01:54 Influ B Molecular Assay Cancelled 07/06/20 01:54 RSV (RT-PCR) Negative (Neg) 07/06/20 01:[address] chest initial read: No thoracic aortic aneurysm or dissection. Diffuse atherosclerosis. No pulmonary embolism. Moderate emphysema. 6 mm left upper lobe nodule. No acute consolidation. Fatty liver. W limited left hepatic hypodensity. 1.6 cm left adrenal nodule. EKG as per my interpretation : Rate 120, sinus tachycardia, normal axis, no ischemia, PVCs
[2020-07-06 04:08] LABS: Base Excess ABG -0.3 mEq/L (-9-1.8); HCO3 ABG 25 mmol/L (19-24); Oxygen Saturation ABG 94.2 % (90-95); PCO2 ABG 45 mmHg (35-46); PO2 ABG 68 mmHg (80-95); pH ABG 7.37 (7.35-7.45)
[2020-07-06] MEDS ORDERED: CEFEPIME 2,000 MG/20 ML VIAL ONE (04:23)
[2020-07-06 04:25] LABS: Allen Test Pos (Pos)
[2020-07-06] MEDS ORDERED: ACETAMINOPHEN 325 MG TAB PO PRN (05:02)
[2020-07-06] MEDS ORDERED: LORazepam 0.5 MG/1 ML VIAL IV PRN (05:02)
[2020-07-06] MEDS ORDERED: oxyCODONE HCL IR 5 MG TAB (IMMEDIATE RELEASE) PO PRN (05:02)
[2020-07-06] MEDS ORDERED: MULTI-VITAMIN INFUSION 10 ML, THIAMINE HCL 100 MG, FOLIC ACID 1 MG, POTASSIUM CHLORIDE ... IV ONE (05:02)
[2020-07-06] MEDS ORDERED: PROMETHAZINE HCL 12.5 MG in SODIUM CHLORIDE 0.9% 50 ML IV PRN (05:02)
[2020-07-06] MEDS ORDERED: AUGMENTIN~PHARMACY CONSULT IN PROGRESS PRN (05:16)
[2020-07-06 06:22] LABS: Estimated Average Glucose 120 mg/dl; Hemoglobin A1C 5.8 % (4.5-5.6)
[2020-07-06] MEDS: LEVOTHYROXINE SODIUM 75 MCG TABLET PO SCH (06:22)
[2020-07-06] MEDS: LEVALBUTEROL 1.25MG/0.5ML NEB INH SCH ×4 (07:09→19:49)
[2020-07-06] MEDS: IPRATROPIUM BROMIDE NEB SOLN 0.02% 2.5 ML VIAL INH SCH ×4 (07:10→19:49)
--- NOTE | 2020-07-06 08:00 | CT Scan Report ---
CT ANGIOGRAPHY OF THE CHEST WITHOUT AND WITH IV CONTRAST CLINICAL HISTORY: dyspnea, hypoxia, ripping sensation upper back COMPARISON STUDY: Chest x-ray dated 07/06/2020 TECHNIQUE: Noncontrast images were obtained through the thorax. Following the IV administration of 11 8 mL of Optiray-320, CT angiography of the thorax was performed from the thoracic inlet to the lung b ases. MIP images were acquired Images are reviewed in the axial, sagittal, and coronal planes. IV con trast was administered without complication. A dose lowering technique was utilized adhering to the principles of ALARA. CT DOSE: 486.95 mGy.cm FINDINGS: Thyroid: Imaged portions of the thyroid gland are normal in appearance. Thoracic aorta: Noncontrast images reveal no evidence of acute thoracic aortic hematoma. Postcontrast images reveal no evidence of aortic aneurysm or dissection. There is mild to moderate atheromatous p laque within the descending thoracic aorta. Pulmonary vasculature: The pulmonary trunk is normal in caliber. There are no central filling defects identified to suggest pulmonary embolus. Note that this examination was not protocoled for the evalu ation of pulmonary emboli. HEART: The heart is normal in size and configuration, without pericardial effusion. Lungs and pleural spaces: There is moderately severe pulmonary emphysema. There are nonspecific apica l opacity statistically representing pleural-parenchymal scarring. A six-month follow-up CT scan migh t be considered to of exclude neoplasm. There is a 6 mm solid pulmonary nodule within the left upper lobe as visualized image #[id number]. Mediastinum: There is no evidence of pathologic mediastinal lymphadenopathy. Ruma: There is no evidence of pathologic hilar lymphadenopathy. Axilla: There is no evidence of pathologic axillary lymphadenopathy. Upper abdomen: There is a 17 mm left adrenal adenoma. There is a 1 cm left hepatic lobe hypodensity likely representing a cyst Skeletal structures: There is an old superior endplate L1 compression fracture IMPRESSION: 1. No evidence of thoracic aortic aneurysm or dissection 2. Mild to moderate atheromatous changes within the descending thoracic aorta 3. No evidence of acute pulmonary embolism 4. Moderately severe pulmonary emphysema. 5. Irregular apical opacities statistically representing pleural-parenchymal scarring. 6 mm solid lef t upper lobe pulmonary nodule. A six-month follow-up CT scan should be considered. 6. 17 mm left adrenal adenoma ACT 112: Positive. There are findings on this exam that require communication between the performing entity and the patient following Patient Test Result Information Act ([place] Act 112) guidelines. Electronically signed by: Jefferson Velasquez M.D. 07/06/2020 7:59 AM
--- NOTE | 2020-07-06 08:05 | XRay Report ---
XR chest 1V portable CLINICAL HISTORY: SEPSIS COMPARISON STUDY: No previous studies for comparison. FINDINGS: The heart is normal in size. There is pulmonary emphysema. There is slight lateral shoulder ing of the right hemidiaphragm. A small subpulmonic pleural effusion cannot be excluded. There is no lobar consolidation. There is no failure.[ IMPRESSION: 1. Pulmonary emphysema 2. Lateral shouldering of the right hemidiaphragm. A small subpulmonic pleural effusion cannot be exc luded ACT 112: Negative or not required by law. Electronically signed by: Jefferson Velasquez M.D. 07/06/2020 8:04 AM
[2020-07-06] MEDS ORDERED: PIPERACILL/TAZOBAC CONSULT ACTIVE PRN (08:17)
[2020-07-06] MEDS: PANTOprazole 40 MG TAB PO SCH (08:39)
[2020-07-06] MEDS: ATORVASTATIN 10 MG TAB PO SCH (08:39)
[2020-07-06] MEDS: ENOXAPARIN INJ 30 MG/0.3 ML SYR SQ SCH (08:41)
--- NOTE | 2020-07-06 08:57 | Hospitalist Progress Note ---
Date of Service July 06, 2020 Assessment & Plan (1) Acute hypoxemic respiratory failure: Emphysema on chest CT and CXR read History spontaneous pneumothorax status post thoracotomy No formal diagnosis of COPD outpatient. CXR - Lateral shouldering of right hemidiaphragm, small subpulmonic pleural effusion cannot be excluded CTA- 1. No evidence of thoracic aortic aneurysm or dissection 2. Mild to moderate atheromatous changes within the descending thoracic aorta 3. No evidence of acute pulmonary embolism 4. Moderately severe pulmonary emphysema. 5. Irregular apical opacities statistically representing pleural-parenchymal scarring. 6 mm solid left upper lobe pulmonary nodule. A six-month follow-up CT scan should be considered. 6. 17 mm left adrenal adenoma COPD exacerbation secondary to possible aspiration pneumonitis Possible sepsis -Received methylprednisolone, cefepime in the ED -Also received 1 dose of Unasyn -Continue prednisone, duo nebs, Zosyn/Augmentin -Speech eval pending GMF Cultures, Unasyn for possible aspiration pneumonitis Swallow eval, aspiration precautions Nebs RTC, prednisone course for presumptive COPD exacerbation Pulmonary consult if without improvement Appropriate to hold home diuretic for now given low BP and low potassium levels. Check hemoglobin A1c At risk alcohol intake Watch out for alcohol withdrawal Initiate HOMA S if with signs DT precautions, Ativan as needed hypertension, BP on the lower side hyperlipidemia on statin Rx hypothyroidism, euthyroid as of recent outpatient TSH Hypokalemia secondary diuretic Rx Hyperglycemia rule out DM Incidental finding of solitary pulmonary nodule on CT chest - will need outpt follow up - Outpatient follow-up surveillance imaging for SPN. Left adrenal adenoma -Incidental finding on CT - outpt follow up Ongoing tobacco abuse - reports she decreased amount of smoking to 8 cigarettes a day - Nicotine patch as needed hypertension, BP on the lower side hyperlipidemia on statin Rx hypothyroidism, euthyroid as of recent outpatient TSH Hypokalemia secondary diuretic Rx Hyperglycemia rule out DM At risk alcohol intake Incidental finding of solitary pulmonary nodule on CT chest - will need outpt follow up - Outpatient follow-up surveillance imaging for SPN. Left adrenal adenoma -Incidental finding on CT - outpt follow up DVT prophylaxis per Lovenox subcu Full code Admission and Anticipated Discharge Date Admission Date: July 06, 2020 Subjective Patient seen in follow-up of chest pain shortness of breath, COPD exacerbation Currently patient is lying in bed, in no acute distress, she is using supplemental oxygen Reports that she is not coughing as much anymore but feels very tired She also denies having any more chest pain She says she was also nauseous yesterday and she does not feel nauseous anymore Review of Systems Review of Systems: All systems reviewed & are unremarkable except as noted in HPI & below Respiratory: + cough (improved) and + dyspnea (improved) Cardiovascular: no chest pain Gastrointestinal: no abdominal pain, no nausea and no vomiting Physical Exam Physical Exam: GENERAL: WD/WN female in no respiratory distress HEENT: NC/AT, [place] palpebral conjunctivae, no ptosis, dry buccal mucosa, nasal cannula in place NECK : Supple, no tenderness CHEST : Decreased breath sounds, no expiratory wheezes, no tenderness HEART : RRR, no obvious murmurs ABDOMEN: soft, nontender, nondistended EXTREMITIES : No LE swelling/tenderness, moves extremities spontaneously NEUROLOGIC : Alert and oriented x3, answering questions appropriately, no facial asymmetry, moves extremities spontaneously SKIN: Normal color, warm Results & Data Results & Data ([facility]) Vital Signs (Past 12 Hours) Vital Signs Temp Pulse Pulse Pulse Resp BP BP 07/06/20 07:12 82 07/06/20 06:52 36.9 C 82 16 88/59 L 07/06/20 05:15 37 C 86 16 86/61 L 07/06/20 04:31 84 20 109/69 07/06/20 04:01 91 H 15 93/59 L 07/06/20 03:59 87 16 07/06/20 03:36 92 H 20 91/69 L 07/06/20 03:30 89 20 93/63 L 07/06/20 03:15 95 H 19 88/64 L 07/06/20 03:14 07/06/20 02:37 37.2 C 07/06/20 02:32 105 H 20 115/68 07/06/20 02:30 19 07/06/20 02:15 112 H 22 93/80 L 07/06/20 02:08 114 H 21 97/73 L 07/06/20 02:00 119 H 24 96/70 L 07/06/20 01:54 22 07/06/20 01:46 120 H 19 115/81 07/06/20 01:17 07/06/20 01:06 37.6 C H 135 H 24 143/83 H Pulse Ox Pulse Ox Pulse Ox 07/06/20 07:12 96 07/06/20 06:52 96 07/06/20 05:15 92 07/06/20 04:31 93 07/06/20 04:01 98 07/06/20 03:59 95 07/06/20 03:36 97 07/06/20 03:30 96 07/06/20 03:15 96 07/06/20 03:14 97 84 L 90 07/06/20 02:37 07/06/20 02:32 99 07/06/20 02:30 97 07/06/20 02:15 95 07/06/20 02:08 97 07/06/20 02:00 98 07/06/20 01:54 99 07/06/20 01:46 98 07/06/20 01:17 84 L 07/06/20 01:06 91 Laboratory Results 07/06/20 07/06/20 07/06/20 Range/Units 06:23 03:59 03:59 WBC (4.8-10.8) K/uL RBC (4.2-5.4) M/uL Hgb (12.0-16.0) g/dL POC Hgb (12.0-16.0) g/dl Hct (37-47) % POC Hct (37-47) % MCV (80-100) fL MCH (25-34) pg MCHC (32-36) g/dL RDW Std Deviation (36.4-46.3) fL RDW Coeff of Angela (11.5-14.5) % Plt Count (130-400) K/uL MPV (7.4-10.4) fL Immature Gran % (Auto) % Neut % (Auto) % Lymph % (Auto) % [place] % (Auto) % Eos % (Auto) % Baso % (Auto) % Neut # (Auto) (1.4-6.5) K/uL Lymph # (Auto) (1.2-3.4) K/uL [place] # (Auto) (0.11-0.59) K/uL Eos # (Auto) (0-0.5) K/uL Baso # (Auto) (0-0.2) K/uL Immature Gran # (Auto) (0.00-0.02) K/uL PT (9.0-12.0) Seconds INR (0.9-1.1) APTT (21.0-31.0) Seconds PTT Ratio ABG pH 7.37 (7.35-7.45) ABG pCO2 45 (35-46) mmHg ABG pO2 68 L (80-95) mmHg ABG HCO3 25 H (19-24) mmol/L ABG O2 Saturation 94.2 (90-95) % ABG Base Excess -0.3 (-9-1.8) mEq/L Rian Test Pos (Pos) Oxygen Given 3L POC Sodium (135-144) mmol/L Sodium (136-145) mmol/L POC Potassium (3.3-5.0) mmol/L Potassium (3.5-5.1) mmol/L POC Chloride (101-112) mmol/L Chloride (98-107) mmol/L Carbon Dioxide (21-32) mmol/L POC Total CO2 (24-31) mmol/L Anion Gap (3-11) POC Anion Gap (16-25) mmol/L POC BUN (7-18) mg/dl BUN (7-18) mg/dl Creatinine (0.6-1.2) mg/dl POC Creatinine (0.6-1.3) mg/dl Est Cr Clr Drug Dosing ml/min Est GFR ( Amer) Est GFR (Non-Af Amer) BUN/Creatinine Ratio (10-20) Glucose (70-99) mg/dl POC Glucose (other) (70-99) mg/dl Estimat Average Glucose 120 mg/dl Hemoglobin A1c 5.8 H (4.5-5.6) % Lactate (0.4-2.0) mmol/L Calcium (8.5-10.1) mg/dl POC Ioniz Calcium Semaj (1.12-1.32) mmol/l Magnesium (1.8-2.4) mg/dl Total Bilirubin (0.2-1) mg/dl AST (15-37) U/L ALT (12-78) U/L Alkaline Phosphatase (45-117) U/L Troponin I (0-0.045) ng/ml Total Protein (6.4-8.2) gm/dl Albumin (3.4-5.0) gm/dl Globulin (2.5-4.0) gm/dl Albumin/Globulin Ratio (0.9-2) Procalcitonin (0-0.5) ng/ml TSH 0.635 (0.300-4.500) uIu/ml Urine Color Urine Appearance (Clear) Urine pH (4.5-7.5) Ur Specific [place] (1.000-1.030) Urine Protein (Negative) Urine Glucose (UA) (Negative) Urine Ketones (Negative) Urine Blood (Negative) Urine Nitrite (Negative) Urine Bilirubin (Negative) Urine Urobilinogen (Negative) Ur Leukocyte Esterase (Negative) Urine WBC (Auto) (0-5) /hpf Urine RBC (Auto) (0-4) /hpf U Hyaline Cast (Auto) (0-5) /lpf U Epithel Cells (Auto) (0-5) /lpf Urine Bacteria (Auto) (Negative) Ethyl Alcohol mg/dL (0-3) mg/dl COVID-19 Eval Order SARS-CoV-2 (PCR) (Negative) Influenza Type A (PCR) (Neg) Influ A Molecular Assay Influenza Type B (PCR) (Neg) Influ B Molecular Assay RSV (RT-PCR) (Neg) 07/06/20 07/06/20 07/06/20 Range/Units 03:59 03:18 02:05 WBC (4.8-10.8) K/uL RBC (4.2-5.4) M/uL Hgb (12.0-16.0) g/dL POC Hgb 17.0 H (12.0-16.0) g/dl Hct (37-47) % POC Hct 50 H (37-47) % MCV (80-100) fL MCH (25-34) pg MCHC (32-36) g/dL RDW Std Deviation (36.4-46.3) fL RDW Coeff of Angela (11.5-14.5) % Plt Count (130-400) K/uL MPV (7.4-10.4) fL Immature Gran % (Auto) % Neut % (Auto) % Lymph % (Auto) % [place] % (Auto) % Eos % (Auto) % Baso % (Auto) % Neut # (Auto) (1.4-6.5) K/uL Lymph # (Auto) (1.2-3.4) K/uL [place] # (Auto) (0.11-0.59) K/uL Eos # (Auto) (0-0.5) K/uL Baso # (Auto) (0-0.2) K/uL Immature Gran # (Auto) (0.00-0.02) K/uL PT (9.0-12.0) Seconds INR (0.9-1.1) APTT (21.0-31.0) Seconds PTT Ratio ABG pH (7.35-7.45) ABG pCO2 (35-46) mmHg ABG pO2 (80-95) mmHg ABG HCO3 (19-24) mmol/L ABG O2 Saturation (90-95) % ABG Base Excess (-9-1.8) mEq/L Rian Test (Pos) Oxygen Given POC Sodium 140 (135-144) mmol/L Sodium (136-145) mmol/L POC Potassium 3.3 (3.3-5.0) mmol/L Potassium (3.5-5.1) mmol/L POC Chloride 98 L (101-112) mmol/L Chloride (98-107) mmol/L Carbon Dioxide (21-32) mmol/L POC Total CO2 30 (24-31) mmol/L Anion Gap (3-11) POC Anion Gap 16.0 (16-25) mmol/L POC BUN 8 (7-18) mg/dl BUN (7-18) mg/dl Creatinine (0.6-1.2) mg/dl POC Creatinine 0.4 L (0.6-1.3) mg/dl Est Cr Clr Drug Dosing ml/min Est GFR ( Amer) Est GFR (Non-Af Amer) BUN/Creatinine Ratio (10-20) Glucose (70-99) mg/dl POC Glucose (other) 159 H (70-99) mg/dl Estimat Average Glucose mg/dl Hemoglobin A1c (4.5-5.6) % Lactate (0.4-2.0) mmol/L Calcium (8.5-10.1) mg/dl POC Ioniz Calcium Semaj 1.14 (1.12-1.32) mmol/l Magnesium (1.8-2.4) mg/dl Total Bilirubin (0.2-1) mg/dl AST (15-37) U/L ALT (12-78) U/L Alkaline Phosphatase (45-117) U/L Troponin I (0-0.045) ng/ml Total Protein (6.4-8.2) gm/dl Albumin (3.4-5.0) gm/dl Globulin (2.5-4.0) gm/dl Albumin/Globulin Ratio (0.9-2) Procalcitonin (0-0.5) ng/ml TSH (0.300-4.500) uIu/ml Urine Color Yellow Urine Appearance Clear (Clear) Urine pH 6.0 (4.5-7.5) Ur Specific [place] > 1.045 H (1.000-1.030) Urine Protein Trace H (Negative) Urine Glucose (UA) Negative (Negative) Urine Ketones Negative (Negative) Urine Blood Trace H (Negative) Urine Nitrite Negative (Negative) Urine Bilirubin Negative (Negative) Urine Urobilinogen Negative (Negative) Ur Leukocyte Esterase Negative (Negative) Urine WBC (Auto) 1-5 (0-5) /hpf Urine RBC (Auto) 5-10 H (0-4) /hpf U Hyaline Cast (Auto) 1-5 (0-5) /lpf U Epithel Cells (Auto) 20-30 H (0-5) /lpf Urine Bacteria (Auto) Negative (Negative) Ethyl Alcohol mg/dL < 3.0 (0-3) mg/dl COVID-19 Eval Order SARS-CoV-2 (PCR) (Negative) Influenza Type A (PCR) (Neg) Influ A Molecular Assay Influenza Type B (PCR) (Neg) Influ B Molecular Assay RSV (RT-PCR) (Neg) 07/06/20 07/06/20 07/06/20 Range/Units 01:56 01:56 01:56 WBC 23.67 H (4.8-10.8) K/uL RBC 4.86 (4.2-5.4) M/uL Hgb 16.2 H (12.0-16.0) g/dL POC Hgb (12.0-16.0) g/dl Hct 45.1 (37-47) % POC Hct (37-47) % MCV 92.8 (80-100) fL MCH 33.3 (25-34) pg MCHC 35.9 (32-36) g/dL RDW Std Deviation 44.5 (36.4-46.3) fL RDW Coeff of Angela 13.0 (11.5-14.5) % Plt Count 335 (130-400) K/uL MPV 9.9 (7.4-10.4) fL Immature Gran % (Auto) 0.3 % Neut % (Auto) 92.9 % Lymph % (Auto) 1.9 % [place] % (Auto) 4.5 % Eos % (Auto) 0.2 % Baso % (Auto) 0.2 % Neut # (Auto) 21.97 H (1.4-6.5) K/uL Lymph # (Auto) 0.46 L (1.2-3.4) K/uL [place] # (Auto) 1.07 H (0.11-0.59) K/uL Eos # (Auto) 0.05 (0-0.5) K/uL Baso # (Auto) 0.04 (0-0.2) K/uL Immature Gran # (Auto) 0.08 H (0.00-0.02) K/uL PT 9.9 (9.0-12.0) Seconds INR 1.0 (0.9-1.1) APTT 25.3 (21.0-31.0) Seconds PTT Ratio 1.0 ABG pH (7.35-7.45) ABG pCO2 (35-46) mmHg ABG pO2 (80-95) mmHg ABG HCO3 (19-24) mmol/L ABG O2 Saturation (90-95) % ABG Base Excess (-9-1.8) mEq/L Rian Test (Pos) Oxygen Given POC Sodium (135-144) mmol/L Sodium (136-145) mmol/L POC Potassium (3.3-5.0) mmol/L Potassium (3.5-5.1) mmol/L POC Chloride (101-112) mmol/L Chloride (98-107) mmol/L Carbon Dioxide (21-32) mmol/L POC Total CO2 (24-31) mmol/L Anion Gap (3-11) POC Anion Gap (16-25) mmol/L POC BUN (7-18) mg/dl BUN (7-18) mg/dl Creatinine (0.6-1.2) mg/dl POC Creatinine (0.6-1.3) mg/dl Est Cr Clr Drug Dosing ml/min Est GFR ( Amer) Est GFR (Non-Af Amer) BUN/Creatinine Ratio (10-20) Glucose (70-99) mg/dl POC Glucose (other) (70-99) mg/dl Estimat Average Glucose mg/dl Hemoglobin A1c (4.5-5.6) % Lactate 1.3 (0.4-2.0) mmol/L Calcium (8.5-10.1) mg/dl POC Ioniz Calcium Semaj (1.12-1.32) mmol/l Magnesium (1.8-2.4) mg/dl Total Bilirubin (0.2-1) mg/dl AST (15-37) U/L ALT (12-78) U/L Alkaline Phosphatase (45-117) U/L Troponin I (0-0.045) ng/ml Total Protein (6.4-8.2) gm/dl Albumin (3.4-5.0) gm/dl Globulin (2.5-4.0) gm/dl Albumin/Globulin Ratio (0.9-2) Procalcitonin (0-0.5) ng/ml TSH (0.300-4.500) uIu/ml Urine Color Urine Appearance (Clear) Urine pH (4.5-7.5) Ur Specific [place] (1.000-1.030) Urine Protein (Negative) Urine Glucose (UA) (Negative) Urine Ketones (Negative) Urine Blood (Negative) Urine Nitrite (Negative) Urine Bilirubin (Negative) Urine Urobilinogen (Negative) Ur Leukocyte Esterase (Negative) Urine WBC (Auto) (0-5) /hpf Urine RBC (Auto) (0-4) /hpf U Hyaline Cast (Auto) (0-5) /lpf U Epithel Cells (Auto) (0-5) /lpf Urine Bacteria (Auto) (Negative) Ethyl Alcohol mg/dL (0-3) mg/dl COVID-19 Eval Order SARS-CoV-2 (PCR) (Negative) Influenza Type A (PCR) (Neg) Influ A Molecular Assay Influenza Type B (PCR) (Neg) Influ B Molecular Assay RSV (RT-PCR) (Neg) 07/06/20 07/06/20 07/06/20 Range/Units 01:56 01:54 01:54 WBC (4.8-10.8) K/uL RBC (4.2-5.4) M/uL Hgb (12.0-16.0) g/dL POC Hgb (12.0-16.0) g/dl Hct (37-47) % POC Hct (37-47) % MCV (80-100) fL MCH (25-34) pg MCHC (32-36) g/dL RDW Std Deviation (36.4-46.3) fL RDW Coeff of Angela (11.5-14.5) % Plt Count (130-400) K/uL MPV (7.4-10.4) fL Immature Gran % (Auto) % Neut % (Auto) % Lymph % (Auto) % [place] % (Auto) % Eos % (Auto) % Baso % (Auto) % Neut # (Auto) (1.4-6.5) K/uL Lymph # (Auto) (1.2-3.4) K/uL [place] # (Auto) (0.11-0.59) K/uL Eos # (Auto) (0-0.5) K/uL Baso # (Auto) (0-0.2) K/uL Immature Gran # (Auto) (0.00-0.02) K/uL PT (9.0-12.0) Seconds INR (0.9-1.1) APTT (21.0-31.0) Seconds PTT Ratio ABG pH (7.35-7.45) ABG pCO2 (35-46) mmHg ABG pO2 (80-95) mmHg ABG HCO3 (19-24) mmol/L ABG O2 Saturation (90-95) % ABG Base Excess (-9-1.8) mEq/L Rian Test (Pos) Oxygen Given POC Sodium (135-144) mmol/L Sodium 140 (136-145) mmol/L POC Potassium (3.3-5.0) mmol/L Potassium 3.2 L (3.5-5.1) mmol/L POC Chloride (101-112) mmol/L Chloride 105 (98-107) mmol/L Carbon Dioxide 28 (21-32) mmol/L POC Total CO2 (24-31) mmol/L Anion Gap 7.0 (3-11) POC Anion Gap (16-25) mmol/L POC BUN (7-18) mg/dl BUN 8 (7-18) mg/dl Creatinine 0.64 (0.6-1.2) mg/dl POC Creatinine (0.6-1.3) mg/dl Est Cr Clr Drug Dosing 77.7 ml/min Est GFR ( Amer) 110.1 Est GFR (Non-Af Amer) 95.0 BUN/Creatinine Ratio 12.8 (10-20) Glucose 154 H (70-99) mg/dl POC Glucose (other) (70-99) mg/dl Estimat Average Glucose mg/dl Hemoglobin A1c (4.5-5.6) % Lactate (0.4-2.0) mmol/L Calcium 9.0 (8.5-10.1) mg/dl POC Ioniz Calcium Semaj (1.12-1.32) mmol/l Magnesium 1.9 (1.8-2.4) mg/dl Total Bilirubin 0.4 (0.2-1) mg/dl AST 26 (15-37) U/L ALT 52 (12-78) U/L Alkaline Phosphatase 89 (45-117) U/L Troponin I < 0.015 (0-0.045) ng/ml Total Protein 8.2 (6.4-8.2) gm/dl Albumin 4.2 (3.4-5.0) gm/dl Globulin 4.0 (2.5-4.0) gm/dl Albumin/Globulin Ratio 1.1 (0.9-2) Procalcitonin < 0.05 (0-0.5) ng/ml TSH (0.300-4.500) uIu/ml Urine Color Urine Appearance (Clear) Urine pH (4.5-7.5) Ur Specific [place] (1.000-1.030) Urine Protein (Negative) Urine Glucose (UA) (Negative) Urine Ketones (Negative) Urine Blood (Negative) Urine Nitrite (Negative) Urine Bilirubin (Negative) Urine Urobilinogen (Negative) Ur Leukocyte Esterase (Negative) Urine WBC (Auto) (0-5) /hpf Urine RBC (Auto) (0-4) /hpf U Hyaline Cast (Auto) (0-5) /lpf U Epithel Cells (Auto) (0-5) /lpf Urine Bacteria (Auto) (Negative) Ethyl Alcohol mg/dL (0-3) mg/dl COVID-19 Eval Order SARS-CoV-2 (PCR) NEGATIVE (Negative) Influenza Type A (PCR) Negative (Neg) Influ A Molecular Assay Influenza Type B (PCR) Negative (Neg) Influ B Molecular Assay RSV (RT-PCR) Negative (Neg) 07/06/20 07/06/20 Range/Units 01:54 01:54 WBC (4.8-10.8) K/uL RBC (4.2-5.4) M/uL Hgb (12.0-16.0) g/dL POC Hgb (12.0-16.0) g/dl Hct (37-47) % POC Hct (37-47) % MCV (80-100) fL MCH (25-34) pg MCHC (32-36) g/dL RDW Std Deviation (36.4-46.3) fL RDW Coeff of Angela (11.5-14.5) % Plt Count (130-400) K/uL MPV (7.4-10.4) fL Immature Gran % (Auto) % Neut % (Auto) % Lymph % (Auto) % [place] % (Auto) % Eos % (Auto) % Baso % (Auto) % Neut # (Auto) (1.4-6.5) K/uL Lymph # (Auto) (1.2-3.4) K/uL [place] # (Auto) (0.11-0.59) K/uL Eos # (Auto) (0-0.5) K/uL Baso # (Auto) (0-0.2) K/uL Immature Gran # (Auto) (0.00-0.02) K/uL PT (9.0-12.0) Seconds INR (0.9-1.1) APTT (21.0-31.0) Seconds PTT Ratio ABG pH (7.35-7.45) ABG pCO2 (35-46) mmHg ABG pO2 (80-95) mmHg ABG HCO3 (19-24) mmol/L ABG O2 Saturation (90-95) % ABG Base Excess (-9-1.8) mEq/L Rian Test (Pos) Oxygen Given POC Sodium (135-144) mmol/L Sodium (136-145) mmol/L POC Potassium (3.3-5.0) mmol/L Potassium (3.5-5.1) mmol/L POC Chloride (101-112) mmol/L Chloride (98-107) mmol/L Carbon Dioxide (21-32) mmol/L POC Total CO2 (24-31) mmol/L Anion Gap (3-11) POC Anion Gap (16-25) mmol/L POC BUN (7-18) mg/dl BUN (7-18) mg/dl Creatinine (0.6-1.2) mg/dl POC Creatinine (0.6-1.3) mg/dl Est Cr Clr Drug Dosing ml/min Est GFR ( Amer) Est GFR (Non-Af Amer) BUN/Creatinine Ratio (10-20) Glucose (70-99) mg/dl POC Glucose (other) (70-99) mg/dl Estimat Average Glucose mg/dl Hemoglobin A1c (4.5-5.6) % Lactate (0.4-2.0) mmol/L Calcium (8.5-10.1) mg/dl POC Ioniz Calcium Semaj (1.12-1.32) mmol/l Magnesium (1.8-2.4) mg/dl Total Bilirubin (0.2-1) mg/dl AST (15-37) U/L ALT (12-78) U/L Alkaline Phosphatase (45-117) U/L Troponin I (0-0.045) ng/ml Total Protein (6.4-8.2) gm/dl Albumin (3.4-5.0) gm/dl Globulin (2.5-4.0) gm/dl Albumin/Globulin Ratio (0.9-2) Procalcitonin (0-0.5) ng/ml TSH (0.300-4.500) uIu/ml Urine Color Urine Appearance (Clear) Urine pH (4.5-7.5) Ur Specific [place] (1.000-1.030) Urine Protein (Negative) Urine Glucose (UA) (Negative) Urine Ketones (Negative) Urine Blood (Negative) Urine Nitrite (Negative) Urine Bilirubin (Negative) Urine Urobilinogen (Negative) Ur Leukocyte Esterase (Negative) Urine WBC (Auto) (0-5) /hpf Urine RBC (Auto) (0-4) /hpf U Hyaline Cast (Auto) (0-5) /lpf U Epithel Cells (Auto) (0-5) /lpf Urine Bacteria (Auto) (Negative) Ethyl Alcohol mg/dL (0-3) mg/dl COVID-19 Eval Order CovFluRsv at [facility] SARS-CoV-2 (PCR) (Negative) Influenza Type A (PCR) (Neg) Influ A Molecular Assay Cancelled Influenza Type B (PCR) (Neg) Influ B Molecular Assay Cancelled RSV (RT-PCR) (Neg) Medications Administered Current Inpatient Medications Acetaminophen (Acetaminophen 325 Mg Tab) 650 mg PO Q4H PRN PRN Reason: Pain or Fever Stop: 08/05/20 05:01 Atorvastatin Calcium (Atorvastatin 10 Mg Tab) 10 mg PO DAILY [facility] Stop: 08/05/20 08:59 Last Admin: 07/06/20 08:39 Dose: 10 mg Documented by: Enoxaparin Sodium (Enoxaparin Inj 30 Mg/0.3 Ml Syr) [facility] [place] Stop: 08/05/20 08:59 Last Admin: 07/06/20 08:41 Dose: 30 mg Documented by: Folic Acid (Folic Acid 1 Mg Tab) 1 mg PO QAM [facility] Stop: 08/06/20 08:59 Multivitamins 10 ml/ Thiamine HCl 100 mg/ Folic Acid 1 mg/Potassium Chloride 40 meq/Sodium Chloride 1,031.2 mls @ 75 mls/hr IV .[id number] ONE Stop: 07/06/20 18:46 Last Admin: 07/06/20 06:01 Dose: 75 mls/hr Documented by: Promethazine HCl 12.5 mg/ (Sodium Chloride) 50.5 mls @ 202 mls/hr IV Q6H PRN PRN Reason: Nausea And Vomiting Stop: 08/05/20 05:01 Lorazepam (Ativan) 0.5 mg in 1 mls @ 1 mls/min IV Q4H PRN PRN Reason: Anxiety/Agitation Stop: 08/05/20 05:01 Piperacillin Sod/Tazobactam (Sod 3.375 gm/ Dextrose) 115 mls @ 28.75 mls/hr IV Q8H [facility]; Protocol Stop: 07/13/20 11:59 Ipratropium [place] (Ipratropium [place] Neb Soln 0.02% 2.5 Ml Vial) 0.5 mg INH QIDR [facility] Stop: 08/05/20 06:59 Last Admin: 07/06/20 07:10 Dose: 0.5 mg Documented by: Levalbuterol HCl (Levalbuterol 1.25mg/0.5ml Neb) 1.25 mg INH QIDR [facility] Stop: 08/05/20 06:59 Last Admin: 07/06/20 07:09 Dose: 1.25 mg Documented by: Levothyroxine Sodium (Levothyroxine Sodium 75 Mcg Tablet) 75 mcg PO DAILYBB [facility] Stop: 08/05/20 06:29 Last Admin: 07/06/20 06:22 Dose: 75 mcg Documented by: Miscellaneous Information (Piperacill/Tazobac Consult Active) 1 ea N/A UD PRN PRN Reason: Consult Stop: 08/05/20 08:16 Multivitamins (Multivitamin Tab) [facility]: 08/06/20 08:59 Oxycodone HCl (Oxycodone Hcl Ir 5 Mg Tab (Immediate Release)) 5 mg PO Q4H PRN PRN Reason: Pain Stop: 07/20/20 05:01 Pantoprazole Sodium (Pantoprazole 40 Mg Tab) 20 mg PO DAILY [facility] Stop: 08/05/20 08:59 Last Admin: 07/06/20 08:39 Dose: 20 mg Documented by: Prednisone (Prednisone 20 Mg Tab) 40 mg PO DAILY [facility] Stop: 07/11/20 08:59 Thiamine HCl (Thiamine Hcl 100 Mg Tab) 100 mg PO QAM [facility] Stop: 08/06/20 08:59
[2020-07-06] MEDS ORDERED: POTASSIUM CHLORIDE CRTAB 20 MEQ TABCR PO ONE (09:00)
[2020-07-06] MEDS ORDERED: XOPENEX/ATROVENT 1.25mg/0.5MG NEB COMBO NEB SCH (09:00)
[2020-07-06] MEDS ORDERED: SODIUM CHLORIDE 0.9% 1000ML 500 ML IV ONE (09:25)
[2020-07-06] MEDS: PIPERACILLIN/TAZOBACTAM 3.375 GM in DEXTROSE 5% 100 ML IV SCH ×3 (12:26→19:24)
--- NOTE | 2020-07-06 15:19 | Electrocardiogram Report ---
Test Reason : Blood Pressure : / mmHG Vent. Rate : 119 BPM Atrial Rate : 119 BPM P-R Int : 136 ms QRS Dur : 074 ms QT Int : 428 ms P-R-T Axes : 081 087 090 degrees QTc Int : 602 ms Poor data quality, interpretation may be adversely affected Sinus tachycardia with occasional Premature ventricular complexes Nonspecific ST and T wave abnormality Prolonged QT Abnormal ECG No previous ECGs available Confirmed by Donnie Gillis ([id number]) on 07/06/2020 3:19:17 PM Referred By: REFERRED SELF Confirmed By:Donnie Gillis
--- NOTE | 2020-07-06 15:20 | Electrocardiogram Report ---
Test Reason : Blood Pressure : / mmHG Vent. Rate : 100 BPM Atrial Rate : 100 BPM P-R Int : 128 ms QRS Dur : 090 ms QT Int : 382 ms P-R-T Axes : 088 082 082 degrees QTc Int : 492 ms Sinus rhythm with occasional Premature ventricular complexes Prolonged QT Abnormal ECG When compared with ECG of 06-JUL-2020 01:45, (unconfirmed) Nonspecific T wave abnormality no longer evident in Inferior leads Confirmed by Donnie Gillis ([id number]) on 07/06/2020 3:20:08 PM Referred By: REFERRED SELF Confirmed By:Donnie Gillis
[2020-07-06] MEDS ORDERED: AMOXICILLIN/CLAVULANATE 875 MG TAB PO SCH (17:00)
[2020-07-06 20:26] LABS: Basophils # (auto) 0.01 K/uL (0-0.2); Basophils % (auto) 0.1 %; Hematocrit (blood only) 35.4 % (37-47); Immature Granulocytes # (auto) 0.03 K/uL (0.00-0.02); Immature Granulocytes % (auto) 0.2 %; Lymphocytes # (auto) 1.02 K/uL (1.2-3.4); Lymphocytes % (auto) 6.3 %; Mean Corpuscular Hemoglobin 32.4 pg (25-34); Mean Corpuscular Hgb Conc 33.9 g/dL (32-36); Mean Corpuscular Volume 95.7 fL (80-100); Monocytes # (auto) 0.86 K/uL (0.11-0.59); Monocytes % (auto) 5.3 %; Neutrophils # (auto) 14.26 K/uL (1.4-6.5); Neutrophils % (auto) 88.1 %; Platelet Count 243 K/uL (130-400); RDW Coefficient of Variation 13.3 % (11.5-14.5); RDW Standard Deviation 46.9 fL (36.4-46.3); White Blood Count 16.18 K/uL (4.8-10.8)
[2020-07-06 20:53] LABS: Alanine Aminotransferase 44 U/L (12-78); Albumin Globulin Ratio 0.9 (0.9-2); Albumin Level 3.1 gm/dl (3.4-5.0); Alkaline Phosphatase 62 U/L (45-117); Aspartate Aminotransferase 18 U/L (15-37); BUN Creatinine Ratio 15.4 (10-20); Bilirubin,Total 0.3 mg/dl (0.2-1); Blood Urea Nitrogen 14 mg/dl (7-18); Calcium 8.6 mg/dl (8.5-10.1); Carbon Dioxide 26 mmol/L (21-32); Chloride 112 mmol/L (98-107); Creatinine Clr Calc Pharmacy 55.2 ml/min; Est GFR (African American) 78.9; Globulin 3.3 gm/dl (2.5-4.0); Glucose 110 mg/dl (70-99); Magnesium 2.1 mg/dl (1.8-2.4); Phosphorus 2.1 mg/dl (2.5-4.9); Potassium 4.2 mmol/L (3.5-5.1); Sodium 142 mmol/L (136-145); Total Protein 6.4 gm/dl (6.4-8.2); Troponin I < 0.015 ng/ml (0-0.045)
[2020-07-06] MEDS ORDERED: SODIUM PHOSPHATE 3 MMOL/1 ML INFUSION IV STA (21:18)
[2020-07-06] MEDS ORDERED: SODIUM PHOSPHATE 15 MMOL in SODIUM CHLORIDE 0.9% 250 ML IV ONE (21:45)
[2020-07-07] MEDS: PIPERACILLIN/TAZOBACTAM 3.375 GM in DEXTROSE 5% 100 ML IV SCH ×3 (01:45→19:06)
[2020-07-07] MEDS: LEVOTHYROXINE SODIUM 75 MCG TABLET PO SCH (06:19)
[2020-07-07 07:08] LABS: Basophils # (auto) 0.03 K/uL (0-0.2); Basophils % (auto) 0.2 %; Eosinophils # (auto) 0.03 K/uL (0-0.5); Eosinophils % (auto) 0.2 %; Hematocrit (blood only) 34.4 % (37-47); Hemoglobin 11.5 g/dL (12.0-16.0); Immature Granulocytes # (auto) 0.03 K/uL (0.00-0.02); Immature Granulocytes % (auto) 0.2 %; Lymphocytes # (auto) 1.85 K/uL (1.2-3.4); Lymphocytes % (auto) 15.1 %; Mean Corpuscular Hemoglobin 32.2 pg (25-34); Mean Corpuscular Hgb Conc 33.4 g/dL (32-36); Mean Corpuscular Volume 96.4 fL (80-100); Mean Platelet Volume 10.1 fL (7.4-10.4); Monocytes # (auto) 0.85 K/uL (0.11-0.59); Neutrophils # (auto) 9.43 K/uL (1.4-6.5); Neutrophils % (auto) 77.3 %; Platelet Count 234 K/uL (130-400); RDW Coefficient of Variation 13.5 % (11.5-14.5); RDW Standard Deviation 47.6 fL (36.4-46.3); Red Blood Count 3.57 M/uL (4.2-5.4); White Blood Count 12.22 K/uL (4.8-10.8)
[2020-07-07] MEDS: LEVALBUTEROL 1.25MG/0.5ML NEB INH SCH ×4 (07:35→20:02)
[2020-07-07] MEDS: IPRATROPIUM BROMIDE NEB SOLN 0.02% 2.5 ML VIAL INH SCH ×4 (07:35→20:03)
[2020-07-07 07:47] LABS: BUN Creatinine Ratio 20.8 (10-20); Calcium 8.7 mg/dl (8.5-10.1); Creatinine Clr Calc Pharmacy 84.3 ml/min; Est GFR (African American) 113.1; Est GFR (Non-African American) 97.5; Magnesium 2.3 mg/dl (1.8-2.4); Phosphorus 3.1 mg/dl (2.5-4.9)
--- NOTE | 2020-07-07 07:47 | Hospitalist Progress Note ---
Date of Service July 07, 2020 Assessment & Plan (1) Acute hypoxemic respiratory failure: Emphysema on chest CT and CXR read History spontaneous pneumothorax status post thoracotomy No formal diagnosis of COPD outpatient. CXR - Lateral shouldering of right hemidiaphragm, small subpulmonic pleural effusion cannot be excluded CTA- 1. No evidence of thoracic aortic aneurysm or dissection 2. Mild to moderate atheromatous changes within the descending thoracic aorta 3. No evidence of acute pulmonary embolism 4. Moderately severe pulmonary emphysema. 5. Irregular apical opacities statistically representing pleural-parenchymal scarring. 6 mm solid left upper lobe pulmonary nodule. A six-month follow-up CT scan should be considered. 6. 17 mm left adrenal adenoma COPD exacerbation secondary to possible aspiration pneumonitis Possible sepsis -Received methylprednisolone, cefepime in the ED -Also received 1 dose of Unasyn for possible aspiration pneumonitis -Continue prednisone for presumptive COPD exacerbation, duo nebs, Zosyn/plan to switch to PO Augmentin Pulmonary consult if without improvement Given lung nodule and emphysema - plan to establish w/ lung clinic Swallow eval, aspiration precautions - blood cultures - NGTD Hypokalemia secondary diuretic Rx Appropriate to hold home diuretic for now given low BP and low potassium levels. Hyperglycemia rule out DM Check hemoglobin A1c At risk alcohol intake Watch out for alcohol withdrawal Initiate HOMA S if with signs DT precautions, Ativan as needed Incidental finding of solitary pulmonary nodule on CT chest - will need outpt follow up - Outpatient follow-up surveillance imaging for SPN. Left adrenal adenoma -Incidental finding on CT - outpt follow up Ongoing tobacco abuse - reports she decreased amount of smoking to 8 cigarettes a day - Nicotine patch as needed hypertension, BP on the lower side hyperlipidemia on statin Rx hypothyroidism, euthyroid as of recent outpatient TSH DVT prophylaxis per Lovenox subcu Full code Admission and Anticipated Discharge Date Admission Date: July 06, 2020 Subjective Patient seen in follow-up of chest pain shortness of breath, COPD exacerbation Currently patient is lying in bed, in no acute distress, she is using supplemental oxygen Had some chest pain that lasted several seconds ECG was obtained -shows NSR Reports that she is not coughing as much anymore but feels tired Updated daughter over the phone. Also, plan to establish with lung clinic. Review of Systems Review of Systems: All systems reviewed & are unremarkable except as noted in HPI & below Constitutional: no fever and no chills Respiratory: + cough (improved) and + dyspnea (improved) Gastrointestinal: no abdominal pain, no nausea and no vomiting Physical Exam Physical Exam: GENERAL: WD/WN female in no respiratory distress HEENT: NC/AT, EOMI, PERRL, nasal cannula in place NECK : Supple, no tenderness CHEST : Decreased breath sounds, no expiratory wheezes, no tenderness HEART : RRR, no obvious murmurs ABDOMEN: soft, nontender, nondistended EXTREMITIES : No LE swelling/tenderness, moves extremities spontaneously NEUROLOGIC : Alert and oriented x3, answering questions appropriately, no facial asymmetry, moves extremities spontaneously SKIN: Normal color, warm Results & Data Results & Data ([facility]) Vital Signs (Past 12 Hours) Vital Signs Temp Pulse Pulse Resp BP Pulse Ox 07/07/20 07:35 73 18 99 07/07/20 07:09 36.6 C 70 16 123/67 97 07/07/20 03:36 36.8 C 76 18 120/69 96 07/06/20 23:13 37 C 95 H 18 118/63 97 07/06/20 23:12 74 07/06/20 20:21 85 136/74 07/06/20 19:51 78 18 97 Laboratory Results 07/07/20 07/07/20 07/06/20 Range/Units 06:45 06:45 20:12 WBC 12.22 H (4.8-10.8) K/uL RBC 3.57 L (4.2-5.4) M/uL Hgb 11.5 L (12.0-16.0) g/dL Hct 34.4 L (37-47) % MCV 96.4 (80-100) fL MCH 32.2 (25-34) pg MCHC 33.4 (32-36) g/dL RDW Std Deviation 47.6 H (36.4-46.3) fL RDW Coeff of Angela 13.5 (11.5-14.5) % Plt Count 234 (130-400) K/uL MPV 10.1 (7.4-10.4) fL Immature Gran % (Auto) 0.2 % Neut % (Auto) 77.3 % Lymph % (Auto) 15.1 % Weld % (Auto) 7.0 % Eos % (Auto) 0.2 % Baso % (Auto) 0.2 % Neut # (Auto) 9.43 H (1.4-6.5) K/uL Lymph # (Auto) 1.85 (1.2-3.4) K/uL Weld # (Auto) 0.85 H (0.11-0.59) K/uL Eos # (Auto) 0.03 (0-0.5) K/uL Baso # (Auto) 0.03 (0-0.2) K/uL Immature Gran # (Auto) 0.03 H (0.00-0.02) K/uL Sodium 144 142 (136-145) mmol/L Potassium 4.0 4.2 D (3.5-5.1) mmol/L Chloride 114 H 112 H (98-107) mmol/L Carbon Dioxide 26 26 (21-32) mmol/L Anion Gap 5.0 5.0 (3-11) BUN 12 14 D (7-18) mg/dl Creatinine 0.59 L D 0.90 (0.6-1.2) mg/dl Est Cr Clr Drug Dosing 84.3 55.2 ml/min Est GFR ( Amer) 113.1 78.9 Est GFR (Non-Af Amer) 97.5 68.0 BUN/Creatinine Ratio 20.8 H 15.4 (10-20) Glucose 96 110 H (70-99) mg/dl Calcium 8.7 8.6 (8.5-10.1) mg/dl Phosphorus 3.1 D 2.1 L (2.5-4.9) mg/dl Magnesium 2.3 2.1 (1.8-2.4) mg/dl Total Bilirubin 0.3 (0.2-1) mg/dl AST 18 (15-37) U/L ALT 44 (12-78) U/L Alkaline Phosphatase 62 (45-117) U/L Troponin I < 0.015 (0-0.045) ng/ml Total Protein 6.4 D (6.4-8.2) gm/dl Albumin 3.1 L (3.4-5.0) gm/dl Globulin 3.3 (2.5-4.0) gm/dl Albumin/Globulin Ratio 0.9 (0.9-2) /07/24 Range/Units 20:12 WBC 16.18 H (4.8-10.8) K/uL RBC 3.70 L (4.2-5.4) M/uL Hgb 12.0 D (12.0-16.0) g/dL Hct 35.4 L (37-47) % MCV 95.7 (80-100) fL MCH 32.4 (25-34) pg MCHC 33.9 (32-36) g/dL RDW Std Deviation 46.9 H (36.4-46.3) fL RDW Coeff of Angela 13.3 (11.5-14.5) % Plt Count 243 (130-400) K/uL MPV 10.0 (7.4-10.4) fL Immature Gran % (Auto) 0.2 % Neut % (Auto) 88.1 % Lymph % (Auto) 6.3 % Weld % (Auto) 5.3 % Eos % (Auto) 0.0 % Baso % (Auto) 0.1 % Neut # (Auto) 14.26 H (1.4-6.5) K/uL Lymph # (Auto) 1.02 L (1.2-3.4) K/uL Weld # (Auto) 0.86 H (0.11-0.59) K/uL Eos # (Auto) 0.00 (0-0.5) K/uL Baso # (Auto) 0.01 (0-0.2) K/uL Immature Gran # (Auto) 0.03 H (0.00-0.02) K/uL Sodium (136-145) mmol/L Potassium (3.5-5.1) mmol/L Chloride (98-107) mmol/L Carbon Dioxide (21-32) mmol/L Anion Gap (3-11) BUN (7-18) mg/dl Creatinine (0.6-1.2) mg/dl Est Cr Clr Drug Dosing ml/min Est GFR ( Amer) Est GFR (Non-Af Amer) BUN/Creatinine Ratio (10-20) Glucose (70-99) mg/dl Calcium (8.5-10.1) mg/dl Phosphorus (2.5-4.9) mg/dl Magnesium (1.8-2.4) mg/dl Total Bilirubin (0.2-1) mg/dl AST (15-37) U/L ALT (12-78) U/L Alkaline Phosphatase (45-117) U/L Troponin I (0-0.045) ng/ml Total Protein (6.4-8.2) gm/dl Albumin (3.4-5.0) gm/dl Globulin (2.5-4.0) gm/dl Albumin/Globulin Ratio (0.9-2) Medications Administered Current Inpatient Medications Acetaminophen (Acetaminophen 325 Mg Tab) 650 mg PO Q4H PRN PRN Reason: Pain or Fever Stop: 08/05/20 05:01 Atorvastatin Calcium (Atorvastatin 10 Mg Tab) 10 mg PO DAILY [facility] Stop: 08/05/20 08:59 Last Admin: 07/06/20 08:39 Dose: 10 mg Documented by: Enoxaparin Sodium (Enoxaparin Inj 30 Mg/0.3 Ml Syr) 30 mg SQ QAM [facility] Stop: 08/05/20 08:59 Last Admin: 07/06/20 08:41 Dose: 30 mg Documented by: Folic Acid (Folic Acid 1 Mg Tab) 1 mg PO QAM [facility] Stop: 08/06/20 08:59 Promethazine HCl 12.5 mg/ (Sodium Chloride) 50.5 mls @ 202 mls/hr IV Q6H PRN PRN Reason: Nausea And Vomiting Stop: 08/05/20 05:01 Lorazepam (Ativan) 0.5 mg in 1 mls @ 1 mls/min IV Q4H PRN PRN Reason: Anxiety/Agitation Stop: 08/05/20 05:01 Piperacillin Sod/Tazobactam (Sod 3.375 gm/ Dextrose) 115 mls @ 28.75 mls/hr IV Q8H [facility]; Protocol Stop: 07/13/20 11:59 Last Infusion: 07/07/20 05:47 Dose: Infused Documented by: Ipratropium [place] (Ipratropium [place] Neb Soln 0.02% 2.5 Ml Vial) 0.5 mg INH QIDR [facility] Stop: 08/05/20 06:59 Last Admin: 07/07/20 07:35 Dose: 0.5 mg Documented by: Levalbuterol HCl (Levalbuterol 1.25mg/0.5ml Neb) 1.25 mg INH QIDR [facility] Stop: 08/05/20 06:59 Last Admin: 07/07/20 07:35 Dose: 1.25 mg Documented by: Levothyroxine Sodium (Levothyroxine Sodium 75 Mcg Tablet) 75 mcg PO DAILYBB [facility] Stop: 08/05/20 06:29 Last Admin: 07/07/20 06:19 Dose: 75 mcg Documented by: Miscellaneous Information (Piperacill/Tazobac Consult Active) 1 ea N/A UD PRN PRN Reason: Consult Stop: 08/05/20 08:16 [facility]ivit[facility] ([facility]amin Tab) [facility] [place] [facility] [place]: 08/06/20 08:59 Oxycodone HCl (Oxycodone Hcl Ir 5 Mg Tab (Immediate Release)) 5 mg PO Q4H PRN PRN Reason: Pain Stop: 07/20/20 05:01 Pantoprazole Sodium (Pantoprazole 40 Mg Tab) 20 mg PO DAILY [facility] Stop: 08/05/20 08:59 Last Admin: 07/06/20 08:39 Dose: 20 mg Documented by: Prednisone (Prednisone 20 Mg Tab) 40 mg PO DAILY [facility] Stop: 07/11/20 08:59 Thiamine HCl (Thiamine Hcl 100 Mg Tab) 100 mg PO QAM [facility] Stop: 08/06/20 08:59
[2020-07-07] MEDS: FOLIC ACID 1 MG TAB PO SCH (07:57)
[2020-07-07] MEDS: ATORVASTATIN 10 MG TAB PO SCH (07:57)
[2020-07-07] MEDS: PANTOprazole 40 MG TAB PO SCH (07:57)
[2020-07-07] MEDS: predniSONE 20 MG TAB PO SCH (07:57)
[2020-07-07] MEDS: MULTIVITAMIN TAB PO SCH (07:58)
[2020-07-07] MEDS: THIAMINE HCL 100 MG TAB PO SCH (07:58)
[2020-07-07] MEDS: ENOXAPARIN INJ 30 MG/0.3 ML SYR SQ SCH (07:58)
[2020-07-07] MEDS ORDERED: oxyCODONE HCL IR 5 MG TAB (IMMEDIATE RELEASE) PO STA (10:21)
[2020-07-07] MEDS: LIDOCAINE 5% 1 PATCH TD SCH (12:27)
[2020-07-07] MEDS: NICOTINE 7 MG/24 HR TDSY TD SCH (17:06)
--- NOTE | 2020-07-07 20:23 | Electrocardiogram Report ---
Test Reason : Blood Pressure : / mmHG Vent. Rate : 084 BPM Atrial Rate : 084 BPM P-R Int : 130 ms QRS Dur : 084 ms QT Int : 406 ms P-R-T Axes : 080 074 074 degrees QTc Int : 479 ms Normal sinus rhythm Normal ECG When compared with ECG of 06-JUL-2020 03:14, Premature ventricular complexes are no longer Present Confirmed by Lio Landry ([id number]) on 07/07/2020 8:22:49 PM Referred By: REFERRED SELF Confirmed By:Lio Landry
[2020-07-08] MEDS: PIPERACILLIN/TAZOBACTAM 3.375 GM in DEXTROSE 5% 100 ML IV SCH ×2 (02:28→09:14)
--- NOTE | 2020-07-08 05:53 | Electrocardiogram Report ---
Test Reason : Blood Pressure : / mmHG Vent. Rate : 080 BPM Atrial Rate : 080 BPM P-R Int : 126 ms QRS Dur : 080 ms QT Int : 394 ms P-R-T Axes : 086 082 086 degrees QTc Int : 454 ms Normal sinus rhythm Normal ECG When compared with ECG of 06-JUL-2020 20:15, No significant change was found Confirmed by Lio Landry ([id number]) on 07/08/2020 5:53:03 AM Referred By: REFERRED SELF Confirmed By:Lio Landry
[2020-07-08] MEDS: LEVOTHYROXINE SODIUM 75 MCG TABLET PO SCH (06:18)
[2020-07-08] MEDS: LEVALBUTEROL 1.25MG/0.5ML NEB INH SCH ×2 (07:09→11:10)
[2020-07-08] MEDS: IPRATROPIUM BROMIDE NEB SOLN 0.02% 2.5 ML VIAL INH SCH ×2 (07:09→11:10)
[2020-07-08 07:35] LABS: Hemoglobin 12.7 g/dL (12.0-16.0); Mean Corpuscular Hemoglobin 32.2 pg (25-34); Mean Corpuscular Hgb Conc 34.3 g/dL (32-36); Mean Corpuscular Volume 93.9 fL (80-100); Mean Platelet Volume 10.2 fL (7.4-10.4); Platelet Count 275 K/uL (130-400); RDW Coefficient of Variation 13.2 % (11.5-14.5); RDW Standard Deviation 45.6 fL (36.4-46.3); Red Blood Count 3.94 M/uL (4.2-5.4); White Blood Count 10.47 K/uL (4.8-10.8)
[2020-07-08 07:40] LABS: BUN Creatinine Ratio 18.3 (10-20); Calcium 8.9 mg/dl (8.5-10.1); Creatinine Clr Calc Pharmacy 74.2 ml/min; Est GFR (African American) 108.4; Est GFR (Non-African American) 93.5; Magnesium 2.3 mg/dl (1.8-2.4); Potassium 3.7 mmol/L (3.5-5.1)
[2020-07-08 07:41] LABS: Phosphorus 3.3 mg/dl (2.5-4.9)
[2020-07-08] MEDS: FOLIC ACID 1 MG TAB PO SCH (08:25)
[2020-07-08] MEDS: ATORVASTATIN 10 MG TAB PO SCH (08:25)
[2020-07-08] MEDS: MULTIVITAMIN TAB PO SCH (08:25)
[2020-07-08] MEDS: predniSONE 20 MG TAB PO SCH (08:25)
[2020-07-08] MEDS: PANTOprazole 40 MG TAB PO SCH (08:26)
[2020-07-08] MEDS: THIAMINE HCL 100 MG TAB PO SCH (08:29)
[2020-07-08] MEDS: LIDOCAINE 5% 1 PATCH TD SCH (08:32)
[2020-07-08] MEDS: ENOXAPARIN INJ 30 MG/0.3 ML SYR SQ SCH (08:34)
[2020-07-08] MEDS ORDERED: POTASSIUM CHLORIDE CRTAB 20 MEQ TABCR PO STA (08:41)
--- NOTE | 2020-07-08 08:41 | Hospitalist Progress Note ---
Date of Service July 08, 2020 Assessment & Plan (1) Acute hypoxemic respiratory failure: Emphysema on chest CT and CXR read History spontaneous pneumothorax status post thoracotomy No formal diagnosis of COPD outpatient. CXR - Lateral shouldering of right hemidiaphragm, small subpulmonic pleural effusion cannot be excluded CTA- 1. No evidence of thoracic aortic aneurysm or dissection 2. Mild to moderate atheromatous changes within the descending thoracic aorta 3. No evidence of acute pulmonary embolism 4. Moderately severe pulmonary emphysema. 5. Irregular apical opacities statistically representing pleural-parenchymal scarring. 6 mm solid left upper lobe pulmonary nodule. A six-month follow-up CT scan should be considered. 6. 17 mm left adrenal adenoma COPD exacerbation secondary to possible aspiration pneumonitis Possible sepsis -Received methylprednisolone, cefepime in the ED -Also received 1 dose of Unasyn for possible aspiration pneumonitis -Continued prednisone for presumptive COPD exacerbation, duo nebs, Zosyn/plan to switch to PO Augmentin on DC -Plan to also discharged on Spiriva, and albuterol inhalers Given lung nodule and emphysema - plan to establish w/ lung clinic Swallow eval, aspiration precautions - blood cultures - NGTD Hypokalemia secondary diuretic Rx Appropriate to hold home diuretic for now given low BP and low potassium levels. Hyperglycemia rule out DM Check hemoglobin A1c At risk alcohol intake Watch out for alcohol withdrawal Initiate HOMA S if with signs DT precautions, Ativan as needed Incidental finding of solitary pulmonary nodule on CT chest - will need outpt follow up - Outpatient follow-up surveillance imaging for SPN. Left adrenal adenoma -Incidental finding on CT - outpt follow up Ongoing tobacco abuse - reports she decreased amount of smoking to 8 cigarettes a day - Nicotine patch as needed - Patient reports she is determined to quit smoking, 1 800 quit now, free smoking cessation line provided to patient on discharge hypertension, BP on the lower side , held HCTZ, no BP normal/up, restart HCTZ on DC hyperlipidemia on statin Rx hypothyroidism, euthyroid as of recent outpatient TSH DVT prophylaxis per Lovenox subcu Full code Admission and Anticipated Discharge Date Admission Date: July 06, 2020 Subjective Patient seen in follow-up of chest pain shortness of breath, COPD exacerbation Currently patient is lying in bed, in no acute distress, she is now on RA Reports that she is not coughing as much anymore and does not feel short of breath, she is inquiring about going home Review of Systems Review of Systems: All systems reviewed & are unremarkable except as noted in HPI & below Constitutional: no fever and no chills Respiratory: + cough (improved) and + dyspnea (improved) Cardiovascular: no chest pain and no palpitations Gastrointestinal: no abdominal pain, no nausea and no vomiting Physical Exam Physical Exam: GENERAL: WD/WN female in no respiratory distress HEENT: NC/AT, EOMI, PERRL, nasal cannula in place NECK : Supple, no tenderness CHEST : Decreased breath sounds, no expiratory wheezes, no tenderness HEART : RRR, no obvious murmurs ABDOMEN: soft, nontender, nondistended EXTREMITIES : No LE swelling/tenderness, moves extremities spontaneously NEUROLOGIC : Alert and oriented x3, answering questions appropriately, no facial asymmetry, moves extremities spontaneously SKIN: Normal color, warm Results & Data Results & Data ([facility]) Vital Signs (Past 12 Hours) Vital Signs Temp Pulse Pulse Resp BP Pulse Ox 07/08/20 07:29 36.6 C 74 20 144/72 H 95 07/08/20 07:10 85 18 94 07/08/20 04:53 85 07/08/20 04:00 36.5 C 79 18 132/63 93 07/07/20 23:05 36.8 C 84 18 124/67 92 Laboratory Results 07/08/20 07/08/20 Range/Units 06:50 06:50 WBC 10.47 (4.8-10.8) K/uL RBC 3.94 L (4.2-5.4) M/uL Hgb 12.7 (12.0-16.0) g/dL Hct 37.0 (37-47) % MCV 93.9 (80-100) fL MCH 32.2 (25-34) pg MCHC 34.3 (32-36) g/dL RDW Std Deviation 45.6 (36.4-46.3) fL RDW Coeff of Angela 13.2 (11.5-14.5) % Plt Count 275 (130-400) K/uL MPV 10.2 (7.4-10.4) fL Sodium 143 (136-145) mmol/L Potassium 3.7 (3.5-5.1) mmol/L Chloride 110 H (98-107) mmol/L Carbon Dioxide 27 (21-32) mmol/L Anion Gap 6.0 (3-11) BUN 12 (7-18) mg/dl Creatinine 0.67 (0.6-1.2) mg/dl Est Cr Clr Drug Dosing 74.2 ml/min Est GFR ( Amer) 108.4 Est GFR (Non-Af Amer) 93.5 BUN/Creatinine Ratio 18.3 (10-20) Glucose 87 (70-99) mg/dl Calcium 8.9 (8.5-10.1) mg/dl Phosphorus 3.3 (2.5-4.9) mg/dl Magnesium 2.3 (1.8-2.4) mg/dl Medications Administered Current Inpatient Medications Acetaminophen (Acetaminophen 325 Mg Tab) 650 mg PO Q4H PRN PRN Reason: Pain or Fever Stop: 08/05/20 05:01 Atorvastatin Calcium (Atorvastatin 10 Mg Tab) 10 mg PO DAILY [facility] Stop: 08/05/20 08:59 Last Admin: 07/08/20 08:25 Dose: 10 mg Documented by: Enoxaparin Sodium (Enoxaparin Inj 30 Mg/0.3 Ml Syr) 30 mg SQ [facility] Stop: 08/05/20 08:59 Last Admin: 07/08/20 08:34 Dose: 30 mg Documented by: Folic Acid (Folic Acid 1 Mg Tab) 1 mg PO QAM [facility] Stop: 08/06/20 08:59 Last Admin: 07/08/20 08:25 Dose: 1 mg Documented by: Promethazine HCl 12.5 mg/ (Sodium Chloride) 50.5 mls @ 202 mls/hr IV Q6H PRN PRN Reason: Nausea And Vomiting Stop: 08/05/20 05:01 Lorazepam (Ativan) 0.5 mg in 1 mls @ 1 mls/min IV Q4H PRN PRN Reason: Anxiety/Agitation Stop: 08/05/20 05:01 Piperacillin Sod/Tazobactam (Sod 3.375 gm/ Dextrose) 115 mls @ 28.75 mls/hr IV Q8H [facility]; Protocol Stop: 07/13/20 11:59 Last Infusion: 07/08/20 06:29 Dose: Infused Documented by: Ipratropium [place] (Ipratropium [place] Neb Soln 0.02% 2.5 Ml Vial) 0.5 mg INH QIDR [facility] Stop: 08/05/20 06:59 Last Admin: 07/08/20 07:09 Dose: 0.5 mg Documented by: Levalbuterol HCl (Levalbuterol 1.25mg/0.5ml Neb) 1.25 mg INH QIDR [facility] Stop: 08/05/20 06:59 Last Admin: 07/08/20 07:09 Dose: 1.25 mg Documented by: Levothyroxine Sodium (Levothyroxine Sodium 75 Mcg Tablet) 75 mcg PO DAILYBB [facility] Stop: 08/05/20 06:29 Last Admin: 07/08/20 06:18 Dose: 75 mcg Documented by: Lidocaine (Lidocaine 5% 1 Patch) 1 patch TD QAM [facility] Stop: 08/06/20 10:59 Last Admin: 07/08/20 08:32 Dose: 1 patch Documented by: Miscellaneous (Remove Lidoderm Patch) 1 ea N/A DAILY@2100 [facility] Stop: 08/06/20 20:59 Last Admin: 07/07/20 22:15 Dose: 1 ea Documented by: Miscellaneous (Remove Nicoderm Patch) 1 ea N/A DAILY@1559 [facility] Stop: 08/07/20 15:58 Miscellaneous Information (Piperacill/Tazobac Consult Active) 1 ea N/A UD PRN PRN Reason: Consult Stop: 08/05/20 08:16 Multivitamins (Multivitamin Tab) 1 tab PO [facility] Stop: 08/06/20 08:59 Last Admin: 07/08/20 08:25 Dose: 1 tab Documented by: Nicotine (Nicotine 7 Mg/24 Hr Tdsy) [facility] [place]: 08/06/20 15:59 Last Admin: 07/07/20 17:06 Dose: 7 mg Documented by: Oxycodone HCl (Oxycodone Hcl Ir 5 Mg Tab (Immediate Release)) 5 mg PO Q4H PRN PRN Reason: Pain Stop: 07/20/20 05:01 Pantoprazole Sodium (Pantoprazole 40 Mg Tab) 20 mg PO DAILY [facility] Stop: 08/05/20 08:59 Last Admin: 07/08/20 08:26 Dose: 20 mg Documented by: Prednisone (Prednisone 20 Mg Tab) 40 mg PO DAILY [facility] Stop: 07/11/20 08:59 Last Admin: 07/08/20 08:25 Dose: 40 mg Documented by: Thiamine HCl (Thiamine Hcl 100 Mg Tab) 100 mg PO QAM [facility] Stop: 08/06/20 08:59 Last Admin: 07/08/20 08:29 Dose: 100 mg Documented by:
[2020-07-08] MEDS: NICOTINE 7 MG/24 HR TDSY TD SCH (09:11)
--- NOTE | 2020-07-08 12:20 | Discharge Summary ---
Date of Service July 08, 2020 Admission HPI Per Admitting Provider History obtained from patient, family, and records. Medical history significant for hypertension, hyperlipidemia, hypothyroidism, history spontaneous pneumothorax status post thoracotomy as per records, daily alcohol intake, ongoing tobacco abuse. 2 weeks history of cough symptoms productive of white-yellow sputum associated with chest pain worse with coughing, shortness of breath worse on exertion. Admits to coughing with meals/water intake if she is not careful. No fluid retention as per patient. No known recent COVID-19 contacts. Worsening discomfort yesterday with fever chills. Patient brought to the ER for evaluation by . 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 Admission Exam Per Admitting Provider GENERAL: Slightly uncomfortable, no respiratory distress SKIN: Normal color, warm HEENT: Addy palpebral conjunctivae, no ptosis, dry buccal mucosa, nasal cannula in place NECK : Supple, no tenderness CHEST : Decreased breath sounds, expiratory wheezes, no tenderness HEART : Tachycardic, no obvious murmurs ABDOMEN: Some distention, nontender EXTREMITIES : No LE swelling/tenderness, no other conspicuous deformities noted NEUROLOGIC : Coherent, no facial asymmetry, no other gross focality Principal Diagnosis Acute hypoxic respiratory failure, secondary to COPD exacerbation Emphysema Aspiration pneumonitis Incidental lung nodule Discharge Exam GENERAL: WD/WN female in no respiratory distress HEENT: NC/AT, EOMI, PERRL, nasal cannula in place NECK : Supple, no tenderness CHEST : Decreased breath sounds, no expiratory wheezes, no tenderness HEART : RRR, no obvious murmurs ABDOMEN: soft, nontender, nondistended EXTREMITIES : No LE swelling/tenderness, moves extremities spontaneously NEUROLOGIC : Alert and oriented x3, answering questions appropriately, no facial asymmetry, moves extremities spontaneously SKIN: Normal color, warm Discharge Data Allergies Allergy/AdvReac Type Severity Reaction Status Date / Time No Known Allergies Allergy Unverified 07/06/20 02:56 Consultations 07/06/20 03:05 ED Decision to Admit Stat Ordered Studies 07/06/20 01:28 CT angio chest dissec wo/w con Urgent IMPRESSION: 1. No evidence of thoracic aortic aneurysm or dissection 2. Mild to moderate atheromatous changes within the descending thoracic aorta 3. No evidence of acute pulmonary embolism 4. Moderately severe pulmonary emphysema. 5. Irregular apical opacities statistically representing pleural-parenchymal scarring. 6 mm solid left upper lobe pulmonary nodule. A six-month follow-up CT scan should be considered. 6. 17 mm left adrenal adenoma CXR IMPRESSION: 1. Pulmonary emphysema 2. Lateral shouldering of the right hemidiaphragm. A small subpulmonic pleural effusion cannot be excluded Hospital Course (1) Acute hypoxemic respiratory failure: Emphysema on chest CT and CXR read History spontaneous pneumothorax status post thoracotomy No formal diagnosis of COPD outpatient. CXR - Lateral shouldering of right hemidiaphragm, small subpulmonic pleural effusion cannot be excluded CTA- 1. No evidence of thoracic aortic aneurysm or dissection 2. Mild to moderate atheromatous changes within the descending thoracic aorta 3. No evidence of acute pulmonary embolism 4. Moderately severe pulmonary emphysema. 5. Irregular apical opacities statistically representing pleural-parenchymal scarring. 6 mm solid left upper lobe pulmonary nodule. A six-month follow-up CT scan should be considered. 6. 17 mm left adrenal adenoma COPD exacerbation secondary to possible aspiration pneumonitis Possible sepsis -Received methylprednisolone, cefepime in the ED -Also received 1 dose of Unasyn for possible aspiration pneumonitis -Continued prednisone for presumptive COPD exacerbation, duo nebs, Zosyn/plan to switch to PO Augmentin on DC -Plan to also discharged on Spiriva, and albuterol inhalers Given lung nodule and emphysema - plan to establish w/ lung clinic Swallow eval, aspiration precautions - blood cultures - NGTD Hypokalemia secondary diuretic Rx Appropriate to hold home diuretic for now given low BP and low potassium levels. Hyperglycemia rule out DM Check hemoglobin A1c At risk alcohol intake Watch out for alcohol withdrawal Initiate HOMA S if with signs DT precautions, Ativan as needed Incidental finding of solitary pulmonary nodule on CT chest - will need outpt follow up - Outpatient follow-up surveillance imaging for SPN. Left adrenal adenoma -Incidental finding on CT - outpt follow up Ongoing tobacco abuse - reports she decreased amount of smoking to 8 cigarettes a day - Nicotine patch as needed - Patient reports she is determined to quit smoking, 1 800 quit now, free smoking cessation line provided to patient on discharge hypertension, BP on the lower side , held HCTZ, no BP normal/up, restart HCTZ on DC hyperlipidemia on statin Rx hypothyroidism, euthyroid as of recent outpatient TSH Total Time Total Time Spent Total Time Spent (In Minutes): 37 Total Time Includes: Examination of the Patient, Discharge Planning, Medication Reconciliation and Communication With Other Providers Discharge Plan Discharge Items Patient Disposition: Home - Self-Care Reason For Visit: RESP FAILURE Discharge Diagnosis: Acute hypoxic respiratory failure, secondary to COPD exacerbation Emphysema Aspiration pneumonitis Incidental lung nodule Activity: Per Instructions section Non-emergency contact: Primary Care Provider Call non-emergency contact if: you have any medication questions and your symptoms worsen Follow-up/Referrals: Liliane Pena DO [Primary Care Provider] - (Date & Time 07/12/2020 11:10 AM Provider Liliane Pena DO Department Internal Medicine [facility] ) Diet: Heart Healthy Addtl Attending Provider Instructions: Follow up with primary care doctor, the appointment was scheduled for you for July 12. Take antibiotic, Augmentin as prescribed. Take steroid/prednisone as prescribed. Use inhaler albuterol as needed for shortness of breath. Use Spiriva inhaler daily. Discuss these medications with your primary care doctor and a lung specialist. Lastly, it is also recommended that you use vitamins, such as thiamine and folic acid. It is also recommended that you take probiotics, while you are taking antibiotics. It is crucial, that you quit smoking, consider calling [employer], the free smoking cessation line. Pending Studies at Discharge: No Stand-Alone Forms: My [facility], Smoking Cessation Medications and DC Order Prescriptions: New nicotine 7 mg/24 hr Patch 24 Hour 7 mg transdermal QAM Qty: 7 RF: 0 prednisone 20 mg Tablet 40 mg PO DAILY 2 Days Qty: 4 RF: 0 lidocaine 5 % Adhesive Patch,Medicated 1 patch transdermal QAM Qty: 15 RF: 0 folic acid 1 mg Tablet 1 mg PO QAM Qty: 14 RF: 0 thiamine HCl (vitamin B1) [Vitamin B-1] 100 mg Tablet 100 mg PO QAM Qty: 14 RF: 0 amoxicillin-pot clavulanate [Augmentin] 875-125 mg tablet 1 tab PO BID 4 Days Qty: 8 RF: 0 Saccharomyces boulardii [Daily Probiotic (S. boulardii)] 250 mg capsule 250 mg PO DAILY Qty: 10 RF: 0 Spiriva with HandiHaler 18 mcg capsule, w/inhalation device 1 cap inhalation DAILY Qty: 30 RF: 0 albuterol sulfate 90 mcg/actuation HFA aerosol inhaler 1 inh inhalation Q6H PRN (Reason: shortness of breath or wheezing) Qty: 8.5 RF: 0 Continued atorvastatin 10 mg tablet 10 mg PO DAILY RF: 0 pantoprazole 20 mg tablet,delayed release (DR/EC) 20 mg PO DAILY RF: 0 levothyroxine 75 mcg tablet 75 mcg PO DAILY RF: 0 hydrochlorothiazide 25 mg tablet 25 mg PO DAILY RF: 0 Discharge Orders: Discharge Order (Routine); Ordered 07/08/20 Ordered By: Fabrizio Langford Admission Data Admit Date/Time: 07/06/20 03:49 Attending Provider: Fabrizio Langford Admit Provider: Alfredo Barth Primary Care Provider: Liliane Pnea Other Providers: Alfredo Barth
== END 2020-07-08 14:31 | disposition home or self-care (01) ==
LOC: ED 01:04 → 2N 04:34

== ENCOUNTER 2020-09-03 19:33 | Inpatient (IN) ==
[2020-09-03] MEDS ORDERED: LORazepam 1 MG/2 ML VIAL IV STA (19:50)
[2020-09-03] MEDS ORDERED: MULTI-VITAMIN INFUSION 10 ML, THIAMINE HCL 100 MG, FOLIC ACID 1 MG in SODIUM CHLORIDE 0... IV ONE (19:52)
[2020-09-03 20:07] LABS: Basophils # (auto) 0.05 K/uL (0-0.2); Basophils % (auto) 0.6 %; Eosinophils # (auto) 0.12 K/uL (0-0.5); Eosinophils % (auto) 1.3 %; Hemoglobin 13.4 g/dL (12.0-16.0); Immature Granulocytes # (auto) 0.01 K/uL (0.00-0.02); Immature Granulocytes % (auto) 0.1 %; Lymphocytes # (auto) 2.33 K/uL (1.2-3.4); Lymphocytes % (auto) 25.7 %; Mean Corpuscular Hemoglobin 32.2 pg (25-34); Mean Corpuscular Hgb Conc 35.3 g/dL (32-36); Mean Corpuscular Volume 91.3 fL (80-100); Mean Platelet Volume 9.6 fL (7.4-10.4); Monocytes # (auto) 0.76 K/uL (0.11-0.59); Monocytes % (auto) 8.4 %; Neutrophils # (auto) 5.79 K/uL (1.4-6.5); Neutrophils % (auto) 63.9 %; Platelet Count 330 K/uL (130-400); RDW Coefficient of Variation 13.3 % (11.5-14.5); RDW Standard Deviation 44.5 fL (36.4-46.3); Red Blood Count 4.16 M/uL (4.2-5.4); White Blood Count 9.06 K/uL (4.8-10.8)
--- NOTE | 2020-09-03 20:10 | Emergency Department Note ---
Impression & Plan Acute dyspnea, Acute hypokalemia, Alcohol intoxication, Alcohol dependence ED Provider Note NAME: ASHLEY GODINEZ AGE: 65 SEX: F ARRIVES VIA: Ambulance INFORMANT: Patient, ED PROVIDER(S): Ian Goel MD CHIEF COMPLAINT: sob PLAN: Disposition: Admit MEDICAL DECISION MAKING: The patient is a 65-year-old woman with a past medical history of alcohol abuse, COPD with ongoing tobacco abuse, prior history of spontaneous pneumothorax with history of thoracotomy per records, hypertension, hyperlipidemia, hypothyroidism who presents to the emergency department via ALS with acute onset shortness of breath in the setting of drinking alcohol today and an establishment where she said she only had 6 beers and upon going home where EMS understood she was driving home but the patient reports she was not driving and was in the backseat, when she had sudden onset of shortness of breath unable to catch her breath. She was found by EMS and had normal O2 saturation but was tachypneic and tachycardic. The patient's symptoms occur in the setting of recently being admitted for acute hypoxic respiratory failure thought to be related to COPD exacerbation related to suspected aspiration pneumonitis where she was treated with antibiotics, steroids and bronchodilators. On arrival the patient is anxious appearing in mild respiratory distress, tachypneic though with O2 saturation 98% on room air. The patient is unkempt and disheveled. She appears clinically dry. Lung are relatively clear. Her abdomen is distended but soft and nontender. Mildly slurred speech/intoxicated. Tremulous. She is easily irritable and accusatory upon my attempt to clarify her history and presentation of symptoms telling me I was "rude" for asking exactly what she was doing when her symptoms began. She perseverates "I was short of breath, I am short of breath, you are not listening to me I told you what happened I am short of breath". EKG without overt acute ischemia. Chest x-ray without acute cardiopulmonary process per my preliminary review. BBC, H/H and platelets within normal limits. Chemistry without metabolic acidosis. VBG is unremarkable. Potassium 2.6 with repletion initiated. Magnesium slightly low at 1.9 with repletion initiated. Electrolytes otherwise unremarkable. AST slightly elevated at 41 and LFTs otherwise without signi ficant abnormality. Troponin negative/undetectable. Lipase is not elevated. TSH within normal limits. UA without convincing evidence of infection. Drug screen was unremarkable. Blood alcohol was 209. COVID-19 PCR negative. Influenza and RSV PCR also negative. CT of the chest was performed and per preliminary stat rad report was negative for PE or focal infiltrates. On reevaluation the patient did appear and did report feeling improved after treatment with IV fluid hydration with banana bag, and IV Ativan. Unclear etiology of the patient's acute dyspnea at this time however suspect m ultifactorial related to the patient's electrolyte abnormality in the setting of her alcohol intoxication with possible early symptoms of withdrawal as well as anxiety/panic attack. Given the patient's elect abnormalities and risk for withdrawal reasonable to meet the patient for further management. The patient and at the bedside were agreement with this plan. Case was discussed with Dr. Ward, [facility] hospitalist, who will evaluate the patient for admission. Triage Nursing notes reviewed and agree them. Additional history obtained from EMS. Prior medical records reviewed Vital Signs: reviewed and remarkable for tachycardia, tachypnea. Differential diagnosis: Reactive airway disease, pneumonia, pneumothorax, COPD, CHF, infections, cardiac ischemia, pulmonary embolism, musculoskeletal, gastrointestinal, as well as other pathologies. ER treatment provided: See below. Diagnostics interpreted by me: ECG: Normal sinus rhythm, 94 bpm, no ectopy, no overt ST elevation or depression, QTC 470, QS 88. Cardiac Monitoring: An order for continuous cardiac monitoring was placed and demonstrated Normal sinus rhythm, 94 bpm, no ectopy. Laboratory studies: See below Imaging studies: Chest x-ray: no acute cardiopulmonary process per my preliminary review. [facility] Preliminary Findings Only See Final Report For Complete Findings CTA CHEST: No pulmonary embolus or aortic dissection. Scattered areas of bullous disease more on the right compared to the left and more severe through the bilateral mid upper lung hou and lung apices. Mild bilateral subpleural scarring with biapical pleural thickening. Otherwise clear lung hou. No focal consolidation to suggest pneumonia. No pleural effusion or pneumothorax. Atherosclerotic disease of aorta with no aneurysm. Small low-attenuation structure within the left liver lobe anterior subcapsular region measuring 1.0 cm, too small to actively characterized and likely a cyst. Remainder of the liver and visualized upper abdominal structures unremarkable. Mild degenerative disease of the spine. Radiologist: Caroline Lowe MD Study ready at 20:46 and initial results transmitted at 21:19 Consultation(s): Case was discussed with Dr. Ward, [facility] hospitalist, who will evaluate the patient for admission. HPI: The patient is a 65-year-old woman with a past medical history of alcohol abuse, COPD with ongoing tobacco abuse, prior history of spontaneous pneumothorax with history of thoracotomy per records, hypertension, hyperlipidemia, hypothyroidism who presents emergency department with acute onset shortness of breath in the setting of drinking alcohol today and an establishment where she said she only had 6 beers and upon going home where EMS understood she was driving home but the patient reports she was not driving and was in the backseat, when she had sudden onset of shortness of breath unable to catch her breath. She was found by EMS and had normal O2 saturation but was tachypneic and tachycardic. The patient's symptoms occur in the setting of recently being admitted for acute hypoxic respiratory failure thought to be related to COPD exacerbation related to suspected aspiration pneumonitis where she was treated with antibiotics, steroids and bronchodilators. ROS: See above HPI for pertinent positives & negatives. A total of 10 systems reviewed and were otherwise negative. PAST MEDICAL HISTORY:See Below PAST SURGICAL HISTORY:See Below FAMILY HISTORY:See Below SOCIAL HISTORY:See Below HOME MEDICATIONS:See Below ALLERGIES:See Below VITALS:See Below PHYSICAL EXAMINATION: GENERAL: Awake, alert, anxious-appearing, unkempt/disheveled, in mild respiratory distress. HENT: Normocephalic, atraumatic. Oropharynx with dry mucous membranes and otherwise unremarkable. EYES: Normal conjunctiva. Sclera non-icteric. NECK: Supple. No nuchal rigidity. FROM. No JVD. RESPIRATORY: Clear to auscultation. Tachypneic. CARDIAC: Tachycardic rate, normal rhythm. Extremities warm and well perfused. Pulses equal. ABDOMEN: Distended but soft. No tenderness to palpation. No rebound or guarding. No masses. RECTAL: Deferred. MUSCULOSKELETAL: Chest examination reveals no tenderness. The back is symmetrical on inspection without obvious abnormality. There is no CVA tenderness to palpation. No joint edema. LOWER EXTREMITIES: Calves are equal size bilaterally and non-tender. No edema. No discoloration. NEURO: No focal sensory or motor deficits noted. Mildly slurred speech. Tremulous. SKIN: No rash or jaundice noted. Ian Goel MD Past Med/Surg History Medical History Alcohol dependence COPD (chronic obstructive pulmonary disease) GERD (gastroesophageal reflux disease) Hypertension Hypothyroidism Tobacco abuse disorder Social History Smoking Status: Former smoker Cigarettes Per Day: 10; Smoking End Date: jul 06 2020; Second Hand Exposure: No; Hx Alcohol Use: Yes Alcohol type: beer Hx Substance Use: Yes Last Used Substance: Hours (ago) Preferred Language: Danish Relocation Specialist Required: No Beliefs That Will Affect Care: None Current Living Situation: Spouse Feels Safe at Home: Yes Assistive Devices: Denture - Upper and Glasses Allergies Allergies Allergy/AdvReac Type Severity Reaction Status Date / Time No Known Allergies Allergy Verified 09/03/20 20:31 Home Meds Home Medications Medication Instructions Recorded Confirmed atorvastatin 10 mg PO DAILY 07/06/20 09/03/20 hydrochlorothiazide 25 mg PO DAILY 07/06/20 09/03/20 levothyroxine 75 mcg PO DAILY 07/06/20 09/03/20 pantoprazole 20 mg PO DAILY 07/06/20 09/03/20 umeclidinium-vilanterol [Anoro 1 inh INHALATION DAILY 09/03/20 09/03/20 Ellipta] Previous Rx's Medication Instructions Recorded Saccharomyces boulardii [Daily 250 mg PO DAILY #10 cap 07/08/20 Probiotic (S. boulardii)] albuterol sulfate 1 inh INHALATION Q6H PRN #8.5 g 07/08/20 folic acid 1 mg PO QAM #14 tab 07/08/20 thiamine HCl (vitamin B1) [Vitamin 100 mg PO QAM #14 tab 07/08/20 B-1] tiotropium bromide [Spiriva with 1 cap INHALATION DAILY #30 inh 07/08/20 HandiHaler] Results & Data (ED) Vital Signs Vital Signs - 24 hr 09/03/20 19:33 09/03/20 19:41 09/03/20 19:42 Temperature 37.0 C Temperature Source Oral Pulse Rate 93 H 98 H 94 H Pulse Rate [Left] Pulse Rate from SpO2 Sensor 98 H 94 H Respiratory Rate 30 H 23 18 Respiratory Effort / Characteristics Blood Pressure 158/96 H 158/96 H Blood Pressure [Right Arm] Blood Pressure Mean 116 116 Blood Pressure Mean [Right Arm] Blood Pressure Position [Right Arm] Pulse Oximetry 99 99 98 Oxygen Delivery Method Room Air Oxygen Flow Rate Sepsis Recent Fever Within 48 Hours No Sepsis New/Unexplained Change in Mental Status No Sepsis Action Taken by Nursing No Action Required 09/03/20 19:50 09/03/20 19:56 09/03/20 19:58 Temperature Temperature Source Pulse Rate 102 H 100 H Pulse Rate [Left] Pulse Rate from SpO2 Sensor 104 H Respiratory Rate 27 H 28 H Respiratory Effort / Characteristics Blood Pressure Blood Pressure [Right Arm] Blood Pressure Mean Blood Pressure Mean [Right Arm] Blood Pressure Position [Right Arm] Pulse Oximetry 96 98 99 Oxygen Delivery Method Room Air Nasal Cannula Oxygen Flow Rate 2 Sepsis Recent Fever Within 48 Hours Sepsis New/Unexplained Change in Mental Status Sepsis Action Taken by Nursing 09/03/20 20:00 09/03/20 20:01 09/03/20 20:10 Temperature Temperature Source Pulse Rate 95 H 92 H 92 H Pulse Rate [Left] Pulse Rate from SpO2 Sensor Respiratory Rate 18 26 H 25 H Respiratory Effort / Characteristics Blood Pressure 134/75 Blood Pressure [Right Arm] Blood Pressure Mean 94 Blood Pressure Mean [Right Arm] Blood Pressure Position [Right Arm] Pulse Oximetry Oxygen Delivery Method Oxygen Flow Rate Sepsis Recent Fever Within 48 Hours Sepsis New/Unexplained Change in Mental Status Sepsis Action Taken by Nursing 09/03/20 20:20 09/03/20 20:25 09/03/20 20:26 Temperature Temperature Source Pulse Rate 109 H 105 H Pulse Rate [Left] 103 H Pulse Rate from SpO2 Sensor Respiratory Rate 21 22 30 H Respiratory Effort / Characteristics Spontaneous Blood Pressure 122/65 Blood Pressure [Right Arm] 122/65 Blood Pressure Mean 84 Blood Pressure Mean [Right Arm] 84 Blood Pressure Position [Right Arm] Lying Pulse Oximetry 99 Oxygen Delivery Method Nasal Cannula Oxygen Flow Rate 2 Sepsis Recent Fever Within 48 Hours Sepsis New/Unexplained Change in Mental Status Sepsis Action Taken by Nursing 09/03/20 20:40 09/03/20 20:45 09/03/20 20:50 Temperature Temperature Source Pulse Rate 104 H 96 H Pulse Rate [Left] Pulse Rate from SpO2 Sensor 107 H 99 H 97 H Respiratory Rate 19 17 19 Respiratory Effort / Characteristics Blood Pressure 139/71 Blood Pressure [Right Arm] Blood Pressure Mean 93 Blood Pressure Mean [Right Arm] Blood Pressure Position [Right Arm] Pulse Oximetry 95 99 96 Oxygen Delivery Method Oxygen Flow Rate Sepsis Recent Fever Within 48 Hours Sepsis New/Unexplained Change in Mental Status Sepsis Action Taken by Nursing 09/03/20 21:00 09/03/20 21:01 09/03/20 21:10 Temperature Temperature Source Pulse Rate 90 89 93 H Pulse Rate [Left] Pulse Rate from SpO2 Sensor Respiratory Rate 17 17 19 Respiratory Effort / Characteristics Blood Pressure 92/44 L Blood Pressure [Right Arm] Blood Pressure Mean 60 Blood Pressure Mean [Right Arm] Blood Pressure Position [Right Arm] Pulse Oximetry Oxygen Delivery Method Oxygen Flow Rate Sepsis Recent Fever Within 48 Hours Sepsis New/Unexplained Change in Mental Status Sepsis Action Taken by Nursing 09/03/20 21:20 09/03/20 21:30 09/03/20 21:31 Temperature Temperature Source Pulse Rate 87 93 H 93 H Pulse Rate [Left] Pulse Rate from SpO2 Sensor 92 H 93 H Respiratory Rate 16 15 19 Respiratory Effort / Characteristics Blood Pressure 95/47 L Blood Pressure [Right Arm] Blood Pressure Mean 63 Blood Pressure Mean [Right Arm] Blood Pressure Position [Right Arm] Pulse Oximetry 96 96 Oxygen Delivery Method Oxygen Flow Rate Sepsis Recent Fever Within 48 Hours Sepsis New/Unexplained Change in Mental Status Sepsis Action Taken by Nursing 09/03/20 21:40 09/03/20 21:50 09/03/20 22:00 Temperature Temperature Source Pulse Rate 97 H 89 90 Pulse Rate [Left] Pulse Rate from SpO2 Sensor 97 H 88 90 Respiratory Rate 20 22 18 Respiratory Effort / Characteristics Blood Pressure 106/59 L Blood Pressure [Right Arm] Blood Pressure Mean 74 Blood Pressure Mean [Right Arm] Blood Pressure Position [Right Arm] Pulse Oximetry 94 95 94 Oxygen Delivery Method Oxygen Flow Rate Sepsis Recent Fever Within 48 Hours Sepsis New/Unexplained Change in Mental Status Sepsis Action Taken by Nursing 09/03/20 22:01 09/03/20 22:10 09/03/20 22:20 Temperature Temperature Source Pulse Rate 96 H 87 84 Pulse Rate [Left] Pulse Rate from SpO2 Sensor 95 H 87 83 Respiratory Rate 21 22 17 Respiratory Effort / Characteristics Blood Pressure Blood Pressure [Right Arm] Blood Pressure Mean Blood Pressure Mean [Right Arm] Blood Pressure Position [Right Arm] Pulse Oximetry 94 94 95 Oxygen Delivery Method Oxygen Flow Rate Sepsis Recent Fever Within 48 Hours Sepsis New/Unexplained Change in Mental Status Sepsis Action Taken by Nursing 09/03/20 22:30 09/03/20 22:31 09/03/20 22:39 Temperature Temperature Source Pulse Rate 84 95 H 85 Pulse Rate [Left] Pulse Rate from SpO2 Sensor 84 93 H 85 Respiratory Rate 18 15 17 Respiratory Effort / Characteristics Blood Pressure 88/37 L 105/50 L Blood Pressure [Right Arm] Blood Pressure Mean 54 68 Blood Pressure Mean [Right Arm] Blood Pressure Position [Right Arm] Pulse Oximetry 96 97 95 Oxygen Delivery Method Oxygen Flow Rate Sepsis Recent Fever Within 48 Hours Sepsis New/Unexplained Change in Mental Status Sepsis Action Taken by Nursing 09/03/20 22:40 09/03/20 22:50 09/03/20 23:00 Temperature Temperature Source Pulse Rate 86 100 H 92 H Pulse Rate [Left] Pulse Rate from SpO2 Sensor 86 100 H 92 H Respiratory Rate 18 19 18 Respiratory Effort / Characteristics Blood Pressure 115/68 Blood Pressure [Right Arm] Blood Pressure Mean 83 Blood Pressure Mean [Right Arm] Blood Pressure Position [Right Arm] Pulse Oximetry 95 93 93 Oxygen Delivery Method Oxygen Flow Rate Sepsis Recent Fever Within 48 Hours Sepsis New/Unexplained Change in Mental Status Sepsis Action Taken by Nursing 09/03/20 23:01 09/03/20 23:30 09/03/20 23:31 Temperature Temperature Source Pulse Rate 93 H 96 H 93 H Pulse Rate [Left] Pulse Rate from SpO2 Sensor 92 H 86 93 H Respiratory Rate 16 22 21 Respiratory Effort / Characteristics Blood Pressure 100/49 L Blood Pressure [Right Arm] Blood Pressure Mean 66 Blood Pressure Mean [Right Arm] Blood Pressure Position [Right Arm] Pulse Oximetry 94 98 97 Oxygen Delivery Method Oxygen Flow Rate Sepsis Recent Fever Within 48 Hours Sepsis New/Unexplained Change in Mental Status Sepsis Action Taken by Nursing 09/04/20 00:00 09/04/20 00:01 09/04/20 00:30 Temperature Temperature Source Pulse Rate 89 85 83 Pulse Rate [Left] Pulse Rate from SpO2 Sensor 88 85 83 Respiratory Rate 17 17 13 Respiratory Effort / Characteristics Blood Pressure 94/48 L 103/56 L Blood Pressure [Right Arm] Blood Pressure Mean 63 71 Blood Pressure Mean [Right Arm] Blood Pressure Position [Right Arm] Pulse Oximetry 95 95 99 Oxygen Delivery Method Oxygen Flow Rate Sepsis Recent Fever Within 48 Hours Sepsis New/Unexplained Change in Mental Status Sepsis Action Taken by Nursing 09/04/20 00:31 Temperature Temperature Source Pulse Rate 83 Pulse Rate [Left] Pulse Rate from SpO2 Sensor 83 Respiratory Rate 16 Respiratory Effort / Characteristics Blood Pressure Blood Pressure [Right Arm] Blood Pressure Mean Blood Pressure Mean [Right Arm] Blood Pressure Position [Right Arm] Pulse Oximetry 98 Oxygen Delivery Method Oxygen Flow Rate Sepsis Recent Fever Within 48 Hours Sepsis New/Unexplained Change in Mental Status Sepsis Action Taken by Nursing Laboratory Data Attestation: I reviewed the patient's lab results. Result diagrams: 09/03/20 19:30 09/03/20 19:30 Lab Results 09/03/20 09/03/20 09/03/20 Range/Units 19:30 19:30 19:30 WBC 9.06 (4.8-10.8) K/uL RBC 4.16 L (4.2-5.4) M/uL Hgb 13.4 (12.0-16.0) g/dL Hct 38.0 (37-47) % MCV 91.3 (80-100) fL MCH 32.2 (25-34) pg MCHC 35.3 (32-36) g/dL RDW Std Deviation 44.5 (36.4-46.3) fL RDW Coeff of Angela 13.3 (11.5-14.5) % Plt Count 330 (130-400) K/uL MPV 9.6 (7.4-10.4) fL Immature Gran % (Auto) 0.1 % Neut % (Auto) 63.9 % Lymph % (Auto) 25.7 % [place] % (Auto) 8.4 % Eos % (Auto) 1.3 % Baso % (Auto) 0.6 % Neut # (Auto) 5.79 (1.4-6.5) K/uL Lymph # (Auto) 2.33 (1.2-3.4) K/uL [place] # (Auto) 0.76 H (0.11-0.59) K/uL Eos # (Auto) 0.12 (0-0.5) K/uL Baso # (Auto) 0.05 (0-0.2) K/uL Immature Gran # (Auto) 0.01 (0.00-0.02) K/uL PT 9.4 (9.0-12.0) Seconds INR 0.9 (0.9-1.1) VBG pH (7.36-7.41) VBG pCO2 (38-50) mmHg VBG pO2 mmHg VBG HCO3 mmol/L VBG O2 Saturation % VBG Base Excess mEq/L Barometric Pressure mm/Hg Sodium 135 L (136-145) mmol/L Potassium 2.6 L (3.5-5.1) mmol/L Chloride 99 (98-107) mmol/L Carbon Dioxide 26 (21-32) mmol/L Anion Gap 10.0 (3-11) BUN 17 (7-18) mg/dl Creatinine 0.71 (0.6-1.2) mg/dl Est Cr Clr Drug Dosing 80.5 ml/min Est GFR ( Amer) 105.1 Est GFR (Non-Af Amer) 90.7 BUN/Creatinine Ratio 23.5 H (10-20) Glucose 87 (70-99) mg/dl Calcium 9.2 (8.5-10.1) mg/dl Phosphorus 3.0 (2.5-4.9) mg/dl Magnesium 1.9 (1.8-2.4) mg/dl Total Bilirubin 0.3 (0.2-1) mg/dl Direct Bilirubin 0.1 (0-0.2) mg/dl AST 41 H (15-37) U/L ALT 66 (12-78) U/L Alkaline Phosphatase 86 (45-117) U/L Total Creatine Kinase 138 (26-192) U/L Troponin I < 0.015 (0-0.045) ng/ml Total Protein 7.8 (6.4-8.2) gm/dl Albumin 3.9 (3.4-5.0) gm/dl Globulin 3.9 (2.5-4.0) gm/dl Albumin/Globulin Ratio 1.0 (0.9-2) Lipase 186 (73-393) U/L TSH 3.120 (0.300-4.500) uIu/ml Urine Color Urine Appearance (Clear) Urine pH (4.5-7.5) Ur Specific Ivel (1.000-1.030) Urine Protein (Negative) Urine Glucose (UA) (Negative) Urine Ketones (Negative) Urine Blood (Negative) Urine Nitrite (Negative) Urine Bilirubin (Negative) Urine Urobilinogen (Negative) Ur Leukocyte Esterase (Negative) Urine Opiates Screen (Neg) Ur Methadone, Qual (Neg) Urine Barbiturates (Neg) Ur Phencyclidine (PCP) (Neg) U Amphetamin/Meth Scrn (Neg) MDMA (Ecstasy) Screen (Neg) U Benzodiazepines Scrn (Neg) Ur Cocaine Metabolite (Neg) U Marijuana (THC) Screen (Neg) Ethyl Alcohol mg/dL (0-3) mg/dl COVID-19 Eval Order SARS-CoV-2 (PCR) (Negative) Influenza Type A (PCR) (Neg) Influenza Type B (PCR) (Neg) RSV (RT-PCR) (Neg) 09/03/20 09/03/20 09/03/20 Range/Units 19:58 19:58 20:20 WBC (4.8-10.8) K/uL RBC (4.2-5.4) M/uL Hgb (12.0-16.0) g/dL Hct (37-47) % MCV (80-100) fL MCH (25-34) pg MCHC (32-36) g/dL RDW Std Deviation (36.4-46.3) fL RDW Coeff of Angela (11.5-14.5) % Plt Count (130-400) K/uL MPV (7.4-10.4) fL Immature Gran % (Auto) % Neut % (Auto) % Lymph % (Auto) % [place] % (Auto) % Eos % (Auto) % Baso % (Auto) % Neut # (Auto) (1.4-6.5) K/uL Lymph # (Auto) (1.2-3.4) K/uL [place] # (Auto) (0.11-0.59) K/uL Eos # (Auto) (0-0.5) K/uL Baso # (Auto) (0-0.2) K/uL Immature Gran # (Auto) (0.00-0.02) K/uL PT (9.0-12.0) Seconds INR (0.9-1.1) VBG pH 7.47 H (7.36-7.41) VBG pCO2 40 (38-50) mmHg VBG pO2 21 mmHg VBG HCO3 28 mmol/L VBG O2 Saturation < 60.0 % VBG Base Excess 4.1 mEq/L Barometric Pressure 729.5 mm/Hg Sodium (136-145) mmol/L Potassium (3.5-5.1) mmol/L Chloride (98-107) mmol/L Carbon Dioxide (21-32) mmol/L Anion Gap (3-11) BUN (7-18) mg/dl Creatinine (0.6-1.2) mg/dl Est Cr Clr Drug Dosing ml/min Est GFR ( Amer) Est GFR (Non-Af Amer) BUN/Creatinine Ratio (10-20) Glucose (70-99) mg/dl Calcium (8.5-10.1) mg/dl Phosphorus (2.5-4.9) mg/dl Magnesium (1.8-2.4) mg/dl Total Bilirubin (0.2-1) mg/dl Direct Bilirubin (0-0.2) mg/dl AST (15-37) U/L ALT (12-78) U/L Alkaline Phosphatase (45-117) U/L Total Creatine Kinase (26-192) U/L Troponin I (0-0.045) ng/ml Total Protein (6.4-8.2) gm/dl Albumin (3.4-5.0) gm/dl Globulin (2.5-4.0) gm/dl Albumin/Globulin Ratio (0.9-2) Lipase (73-393) U/L TSH (0.300-4.500) uIu/ml Urine Color Yellow Urine Appearance Clear (Clear) Urine pH 6.5 (4.5-7.5) Ur Specific Ivel 1.006 (1.000-1.030) Urine Protein Negative (Negative) Urine Glucose (UA) Negative (Negative) Urine Ketones Negative (Negative) Urine Blood Negative (Negative) Urine Nitrite Negative (Negative) Urine Bilirubin Negative (Negative) Urine Urobilinogen Negative (Negative) Ur Leukocyte Esterase Negative (Negative) Urine Opiates Screen (Neg) Ur Methadone, Qual (Neg) Urine Barbiturates (Neg) Ur Phencyclidine (PCP) (Neg) U Amphetamin/Meth Scrn (Neg) MDMA (Ecstasy) Screen (Neg) U Benzodiazepines Scrn (Neg) Ur Cocaine Metabolite (Neg) U Marijuana (THC) Screen (Neg) Ethyl Alcohol mg/dL 209.0 H (0-3) mg/dl COVID-19 Eval Order SARS-CoV-2 (PCR) (Negative) Influenza Type A (PCR) (Neg) Influenza Type B (PCR) (Neg) RSV (RT-PCR) (Neg) 09/03/20 09/03/20 09/03/20 Range/Units 20:20 20:45 20:45 WBC (4.8-10.8) K/uL RBC (4.2-5.4) M/uL Hgb (12.0-16.0) g/dL Hct (37-47) % MCV (80-100) fL MCH (25-34) pg MCHC (32-36) g/dL RDW Std Deviation (36.4-46.3) fL RDW Coeff of Angela (11.5-14.5) % Plt Count (130-400) K/uL MPV (7.4-10.4) fL Immature Gran % (Auto) % Neut % (Auto) % Lymph % (Auto) % [place] % (Auto) % Eos % (Auto) % Baso % (Auto) % Neut # (Auto) (1.4-6.5) K/uL Lymph # (Auto) (1.2-3.4) K/uL [place] # (Auto) (0.11-0.59) K/uL Eos # (Auto) (0-0.5) K/uL Baso # (Auto) (0-0.2) K/uL Immature Gran # (Auto) (0.00-0.02) K/uL PT (9.0-12.0) Seconds INR (0.9-1.1) VBG pH (7.36-7.41) VBG pCO2 (38-50) mmHg VBG pO2 mmHg VBG HCO3 mmol/L VBG O2 Saturation % VBG Base Excess mEq/L Barometric Pressure mm/Hg Sodium (136-145) mmol/L Potassium (3.5-5.1) mmol/L Chloride (98-107) mmol/L Carbon Dioxide (21-32) mmol/L Anion Gap (3-11) BUN (7-18) mg/dl Creatinine (0.6-1.2) mg/dl Est Cr Clr Drug Dosing ml/min Est GFR ( Amer) Est GFR (Non-Af Amer) BUN/Creatinine Ratio (10-20) Glucose (70-99) mg/dl Calcium (8.5-10.1) mg/dl Phosphorus (2.5-4.9) mg/dl Magnesium (1.8-2.4) mg/dl Total Bilirubin (0.2-1) mg/dl Direct Bilirubin (0-0.2) mg/dl AST (15-37) U/L ALT (12-78) U/L Alkaline Phosphatase (45-117) U/L Total Creatine Kinase (26-192) U/L Troponin I (0-0.045) ng/ml Total Protein (6.4-8.2) gm/dl Albumin (3.4-5.0) gm/dl Globulin (2.5-4.0) gm/dl Albumin/Globulin Ratio (0.9-2) Lipase (73-393) U/L TSH (0.300-4.500) uIu/ml Urine Color Urine Appearance (Clear) Urine pH (4.5-7.5) Ur Specific Ivel (1.000-1.030) Urine Protein (Negative) Urine Glucose (UA) (Negative) Urine Ketones (Negative) Urine Blood (Negative) Urine Nitrite (Negative) Urine Bilirubin (Negative) Urine Urobilinogen (Negative) Ur Leukocyte Esterase (Negative) Urine Opiates Screen Neg (Neg) Ur Methadone, Qual Neg (Neg) Urine Barbiturates Neg (Neg) Ur Phencyclidine (PCP) Neg (Neg) U Amphetamin/Meth Scrn Neg (Neg) MDMA (Ecstasy) Screen Neg (Neg) U Benzodiazepines Scrn Neg (Neg) Ur Cocaine Metabolite Neg (Neg) U Marijuana (THC) Screen Neg (Neg) Ethyl Alcohol mg/dL (0-3) mg/dl COVID-19 Eval Order Cancelled [facility]Rsv at [facility] SARS-CoV-2 (PCR) (Negative) Influenza Type A (PCR) (Neg) Influenza Type B (PCR) (Neg) RSV (RT-PCR) (Neg) 09/03/20 Range/Units 20:45 WBC (4.8-10.8) K/uL RBC (4.2-5.4) M/uL Hgb (12.0-16.0) g/dL Hct (37-47) % MCV (80-100) fL MCH (25-34) pg MCHC (32-36) g/dL RDW Std Deviation (36.4-46.3) fL RDW Coeff of Angela (11.5-14.5) % Plt Count (130-400) K/uL MPV (7.4-10.4) fL Immature Gran % (Auto) % Neut % (Auto) % Lymph % (Auto) % [place] % (Auto) % Eos % (Auto) % Baso % (Auto) % Neut # (Auto) (1.4-6.5) K/uL Lymph # (Auto) (1.2-3.4) K/uL Vermillion # (Auto) (0.11-0.59) K/uL Eos # (Auto) (0-0.5) K/uL Baso # (Auto) (0-0.2) K/uL Immature Gran # (Auto) (0.00-0.02) K/uL PT (9.0-12.0) Seconds INR (0.9-1.1) VBG pH (7.36-7.41) VBG pCO2 (38-50) mmHg VBG pO2 mmHg VBG HCO3 mmol/L VBG O2 Saturation % VBG Base Excess mEq/L Barometric Pressure mm/Hg Sodium (136-145) mmol/L Potassium (3.5-5.1) mmol/L Chloride (98-107) mmol/L Carbon Dioxide (21-32) mmol/L Anion Gap (3-11) BUN (7-18) mg/dl Creatinine (0.6-1.2) mg/dl Est Cr Clr Drug Dosing ml/min Est GFR ( Amer) Est GFR (Non-Af Amer) BUN/Creatinine Ratio (10-20) Glucose (70-99) mg/dl Calcium (8.5-10.1) mg/dl Phosphorus (2.5-4.9) mg/dl Magnesium (1.8-2.4) mg/dl Total Bilirubin (0.2-1) mg/dl Direct Bilirubin (0-0.2) mg/dl AST (15-37) U/L ALT (12-78) U/L Alkaline Phosphatase (45-117) U/L Total Creatine Kinase (26-192) U/L Troponin I (0-0.045) ng/ml Total Protein (6.4-8.2) gm/dl Albumin (3.4-5.0) gm/dl Globulin (2.5-4.0) gm/dl Albumin/Globulin Ratio (0.9-2) Lipase (73-393) U/L TSH (0.300-4.500) uIu/ml Urine Color Urine Appearance (Clear) Urine pH (4.5-7.5) Ur Specific Ivel (1.000-1.030) Urine Protein (Negative) Urine Glucose (UA) (Negative) Urine Ketones (Negative) Urine Blood (Negative) Urine Nitrite (Negative) Urine Bilirubin (Negative) Urine Urobilinogen (Negative) Ur Leukocyte Esterase (Negative) Urine Opiates Screen (Neg) Ur Methadone, Qual (Neg) Urine Barbiturates (Neg) Ur Phencyclidine (PCP) (Neg) U Amphetamin/Meth Scrn (Neg) MDMA (Ecstasy) Screen (Neg) U Benzodiazepines Scrn (Neg) Ur Cocaine Metabolite (Neg) U Marijuana (THC) Screen (Neg) Ethyl Alcohol mg/dL (0-3) mg/dl COVID-19 Eval Order SARS-CoV-2 (PCR) NEGATIVE (Negative) Influenza Type A (PCR) Negative (Neg) Influenza Type B (PCR) Negative (Neg) RSV (RT-PCR) Negative (Neg) Administered Medications Discontinued Medications Lorazepam (Ativan) 1 mg in 2 mls @ 2 mls/min IV NOW STA Stop: 09/03/20 19:51 Last Admin: 09/03/20 20:04 Dose: 2 mls/min Documented by: [id number] Multivitamins 10 ml/ Thiamine HCl 100 mg/ Folic Acid 1 mg/Sodium Chloride 1,011.2 mls @ 1,011.2 mls/hr IV .Q1H ONE Stop: 09/03/20 20:51 Last Infusion: 09/03/20 21:20 Dose: 0 mls/hr Documented by: [id number] Admin: 09/03/20 20:15 Dose: 1,011.2 mls/hr Documented by: [id number] Potassium Chloride (K Dustin / Wtr) 10 meq in 100 mls @ 100 mls/hr IV Q1H NAINA Stop: 09/03/20 22:59 Last Infusion: 09/03/20 23:47 Dose: 0 mls/hr Documented by: [id number] Admin: 09/03/20 22:37 Dose: 100 mls/hr Documented by: [id number] Infusion: 09/03/20 22:36 Dose: 0 mls/hr Documented by: [id number] Admin: 09/03/20 21:25 Dose: 100 mls/hr Documented by: [id number] Magnesium Sulfate/Dextrose (Magnesium Sulfate / D5w) 1 gm in 100 mls @ 100 mls/hr IV NOW STA Stop: 09/03/20 21:51 Last Infusion: 09/03/20 22:37 Dose: 0 mls/hr Documented by: [id number] Admin: 09/03/20 21:25 Dose: 100 mls/hr Documented by: [id number] Ioversol (Optiray 350 500ml) 89 ml IV ONCE ONE Stop: 09/03/20 20:35 Last Admin: 09/03/20 20:35 Dose: 89 ml Documented by: [id number] Discharge Plan Visit Data Chief Complaint: Anxiety Stated Complaint: ANXIETY, SOB ED Provider: Ian Goel Discharge Problem: Acute dyspnea, Acute hypokalemia, Alcohol intoxication, Alcohol dependence Patient Disposition: Admitted As Inpatient Discharge Instructions Interventions: ED Discharge Assessment Last Done: 09/04/20 00:48 Discharge Problem: Alcohol intoxication Qualifiers: Complication of substance-induced condition: with unspecified complication Q ualified Code(s): F10.929 - Alcohol use, unspecified with intoxication, unspecified Alcohol dependence Qualifiers: Substance use status: unspecified alcohol-induced disorder Qualified Code(s): F10.29 - Alcohol dependence with unspecified alcohol-induced disorder
[2020-09-03 20:15] LABS: Alanine Aminotransferase 66 U/L (12-78); Albumin Level 3.9 gm/dl (3.4-5.0); Aspartate Aminotransferase 41 U/L (15-37); BUN Creatinine Ratio 23.5 (10-20); Bilirubin Direct 0.1 mg/dl (0-0.2); Blood Urea Nitrogen 17 mg/dl (7-18); Calcium 9.2 mg/dl (8.5-10.1); Carbon Dioxide 26 mmol/L (21-32); Chloride 99 mmol/L (98-107); Creatinine Clr Calc Pharmacy 80.5 ml/min; Est GFR (African American) 105.1; Est GFR (Non-African American) 90.7; Glucose 87 mg/dl (70-99); Lipase 186 U/L (73-393); Magnesium 1.9 mg/dl (1.8-2.4); Potassium 2.6 mmol/L (3.5-5.1); Sodium 135 mmol/L (136-145)
[2020-09-03 20:16] LABS: Base Excess VBG 4.1 mEq/L; HCO3 VBG 28 mmol/L; PCO2 VBG 40 mmHg (38-50); PO2 VBG 21 mmHg; pH VBG 7.47 (7.36-7.41)
[2020-09-03 20:17] LABS: INR 0.9 (0.9-1.1); Prothrombin Time 9.4 Seconds (9.0-12.0)
[2020-09-03 20:22] LABS: Oxygen Saturation VBG < 60.0 %
[2020-09-03 20:24] LABS: Alkaline Phosphatase 86 U/L (45-117); Bilirubin,Total 0.3 mg/dl (0.2-1); Creatine Kinase 138 U/L (26-192); Globulin 3.9 gm/dl (2.5-4.0); Total Protein 7.8 gm/dl (6.4-8.2); Troponin I < 0.015 ng/ml (0-0.045)
[2020-09-03 20:32] LABS: Appearance Urine Clear (Clear); Bilirubin Urine Negative (Negative); Blood Urine Negative (Negative); Color Urine Yellow; Glucose Urine UA Negative (Negative); Ketones Urine Negative (Negative); Leukocyte Esterase Urine Negative (Negative); Nitrite Urine Negative (Negative); Protein Urine Negative (Negative); Specific Gravity Urine 1.006 (1.000-1.030); Urobilinogen Urine Negative (Negative); pH Urine 6.5 (4.5-7.5)
[2020-09-03] MEDS ORDERED: OPTIRAY 350 500ml IV ONE (20:34)
[2020-09-03 20:49] LABS: Amphetamines+Metham, Urine Neg (Neg); Barbiturates, Urine Neg (Neg); Benzodiazepine, Urine Neg (Neg); Cocaine, Urine Neg (Neg); MDMA (Ecstacy), Urine Neg (Neg); Methadone, Urine Neg (Neg); Opiate, Urine Neg (Neg); Phencyclidine, Urine Neg (Neg)
[2020-09-03] MEDS ORDERED: MAGNESIUM SULFATE / D5W 1 GM/100 ML BAG IV STA (20:52)
[2020-09-03] MEDS: POTASSIUM CHLORIDE / WTR 10 MEQ/100 ML PLCT IV SCH ×2 (21:25→22:37)
[2020-09-03 21:59] LABS: Influenza A virus by PCR Negative (Neg); Influenza B virus by PCR Negative (Neg); RSV by PCR Negative (Neg); SARS CoV2 RNA(COVID-19) InHosp NEGATIVE (Negative)
--- NOTE | 2020-09-04 00:48 | History and Physical Report ---
DATE OF ADMISSION: 09/03/2020 CHIEF COMPLAINT: Shortness of breath. HISTORY OF PRESENT ILLNESS: This is a 65-year-old female with past medical history significant for hypothyroidism, hyperlipidemia, history of emphysema, history of pulmonary lung nodule, hypertension, history of tachycardia, generalized osteoarthritis, hiatal hernia, ongoing alcoholism, tobacco use disorder, presents with shortness of breath. The patient says she went to [facility] and on the way back, she suddenly felt short of breath. She could not breathe and she came to the ER. When she came to the ER, she was not hypoxic, but she seemed to be somewhat tachypneic and tachycardic. Anyway, she was placed on oxygen. She was saturating fine. CTA of the chest, no PE or any infiltrates. Currently resting comfortably and hemodynamically stable. Currently, she no longer feels short of breath. She drinks alcohol, 6 beers every day. She drank about 5 beers today. Alcohol was 209. Her potassium level is 2.6. Sodium 135. Rest of the labs are okay. She had a similar episode in first week of July. At that time, she had aspiration pneumonitis and COPD exacerbation, but currently she is not in COPD exacerbation. There is no obvious aspiration. Denies any fever, chills, no cough, no chest pain. No headache, no blurred vision, no earache, no runny nose, no sore throat. No nausea, no abdominal pain. Normal bowel and bladder movements. Her second COVID shot was given last Saturday. ALLERGIES: EFFEXOR. PAST MEDICAL HISTORY: As mentioned above. PAST SURGICAL HISTORY: EGDs, injection of the cervical spine, thoracotomy. MEDICATIONS: The patient is on albuterol inhalation q. 6 hours p.r.n., atorvastatin 10 mg p.o. daily, folic acid 1 mg p.o. daily, hydrochlorothiazide 25 mg p.o. daily, levothyroxine 75 mcg p.o. daily, Protonix 20 mg p.o. daily, probiotic 250 mg p.o. daily, thiamine 100 mg p.o. daily, Spiriva inhaler 1 capsule inhalation daily, Anoro Ellipta 1 inhalation daily. FAMILY HISTORY: Significant for mother had pancreatic cancer. Father has heart attack. Sister has heart disorder. Brother has prostate cancer. SOCIAL HISTORY: . As per the records, she quit smoking in July 2020. Average smoked 1 pack a day for 50 years. Drinks 5-6 beers every day as per EPIC. Smokes marijuana. REVIEW OF SYMPTOMS: As per HPI. Rest of review of systems negative. PHYSICAL EXAMINATION: GENERAL: The patient is of moderate build, not in acute distress. VITAL SIGNS: Temperature 37, pulse 93, respiratory rate 16, blood pressure 115/68, oxygen 94% on 2 liters. HEENT: Pupils equal, round, reactive to light. Oral mucosa moist. NECK: No JVD, no neck masses. CARDIOVASCULAR: S1, S2 heard, regular rate and rhythm, no murmur, no gallop. RESPIRATORY SYSTEM: Normal AP diameter. No accessory muscle use. No wheezing, no crackles. ABDOMEN: Soft, bowel sounds present, nontender. No distention. CENTRAL NERVOUS SYSTEM: Cranial nerves II-XII grossly intact. Nonfocal. EXTREMITIES: No edema, no erythema. LABORATORY DATA: WBC 9, hemoglobin 13.4, hematocrit 38, platelets 330. PT 9.4, INR 0.9. Venous blood gases pH of 7.47, pCO2 of 40, pO2 21, bicarbonate 28. Sodium 135, potassium 2.6, chloride 99, bicarbonate 26, BUN 17, creatinine 0.7, serum glucose 87, calcium 9.2, phosphorus 3, magnesium 1.9, total bilirubin 0.3, direct bilirubin 0.1, AST 41, ALT 66, alkaline phosphatase 86, total creatinine kinase 132. Troponin I less than 0.015. Lipase 183. TSH 3.1. Urinalysis negative. Urine drug screen negative. Ethyl alcohol level 209. SARS-CoV-2 PCR negative. Influenza A and B PCR negative, RSV PCR negative. IMAGING: CT of the chest, no PE, no obvious infiltrate seen on the preliminary report . EKG: Normal sinus rhythm, rate of 94, no significant change was found. ASSESSMENT AND PLAN: This is a 65-year-old female who presents with shortness of breath. 1. Shortness of breath. The patient has history of chronic obstructive pulmonary disease, but not in exacerbation. The patient has history of aspiration pneumonitis. There is no obvious aspiration on the CAT scan, no PE. . Currently, she is feeling better. Etiology unclear, could be from her ongoing alcoholism, electrolyte abnormalities or anxiety. We will keep her in the hospital and monitor. 2. Hypokalemia. We will replace. Patient's hydrochlorothiazide may need to be changed to different blood pressure medication. Follow the repeat labs in a.m. 3. Alcoholism. We will place her on gabapentin protocol. Received banana bag in the ER. Continue her home p.o. thiamine and folic acid, and Ativan p.r.n. 4. History of spontaneous pneumothorax, status post thoracotomy in the past. 5. History of hypertension. Continue holding hydrochlorothiazide. Monitor blood pressure. May need changing to different class of medication on discharge. 6. History of hypothyroidism. Continue Synthroid. 7. Gastroesophageal reflux disease. Continue Protonix. 8. History of chronic obstructive pulmonary disease. Continue home inhalers, currently stable. 9. Deep venous thrombosis prophylaxis, SCDs for now. 10. Disposition: Closely monitor in the med tele. Expect discharge home and follow with family doctor. KAILEY
[2020-09-04] MEDS ORDERED: ATIVAN IV ALCOHOL WITHDRAWL IV PRN (01:26)
[2020-09-04] MEDS ORDERED: LORazepam 1 MG/2 ML VIAL IV PRN (01:26)
[2020-09-04] MEDS ORDERED: SODIUM CHLORIDE 0.9% 1000ML 1,000 ML IV SCH (01:26)
[2020-09-04] MEDS ORDERED: GABAPENTIN 600 MG TAB PO ONE (01:26)
[2020-09-04] MEDS ORDERED: NITROGLYCERIN SL 0.4 MG/TAB TAB SL PRN (01:26)
[2020-09-04] MEDS ORDERED: ALBUTEROL HFA 8 GM INHALER INH PRN (01:26)
[2020-09-04] MEDS ORDERED: LORazepam 3 MG/6 ML VIAL IV PRN (01:26)
[2020-09-04] MEDS ORDERED: LORazepam 2 MG/4 ML VIAL IV PRN (01:26)
[2020-09-04] MEDS ORDERED: POTASSIUM CHLORIDE CRTAB 20 MEQ TABCR PO STA (01:26)
[2020-09-04] MEDS ORDERED: ONDANSETRON INJ 2 MG/ML 2 ML VIAL IV PRN (01:26)
[2020-09-04] MEDS ORDERED: GABAPENTIN 1200MG ALCOHOL WITHDRAWAL LOAD PO STA (01:26)
[2020-09-04] MEDS: POTASSIUM CHLORIDE / WTR 10 MEQ/100 ML PLCT IV SCH ×2 (02:13→03:11)
[2020-09-04 05:56] LABS: Basophils # (auto) 0.03 K/uL (0-0.2); Basophils % (auto) 0.5 %; Eosinophils # (auto) 0.12 K/uL (0-0.5); Hematocrit (blood only) 35.7 % (37-47); Immature Granulocytes # (auto) 0.03 K/uL (0.00-0.02); Immature Granulocytes % (auto) 0.5 %; Lymphocytes # (auto) 1.81 K/uL (1.2-3.4); Lymphocytes % (auto) 30.5 %; Mean Corpuscular Hemoglobin 31.1 pg (25-34); Mean Corpuscular Hgb Conc 33.6 g/dL (32-36); Mean Corpuscular Volume 92.5 fL (80-100); Mean Platelet Volume 9.4 fL (7.4-10.4); Monocytes # (auto) 0.47 K/uL (0.11-0.59); Monocytes % (auto) 7.9 %; Neutrophils # (auto) 3.48 K/uL (1.4-6.5); Neutrophils % (auto) 58.6 %; Platelet Count 303 K/uL (130-400); RDW Coefficient of Variation 13.7 % (11.5-14.5); RDW Standard Deviation 46.5 fL (36.4-46.3); Red Blood Count 3.86 M/uL (4.2-5.4); White Blood Count 5.94 K/uL (4.8-10.8)
[2020-09-04] MEDS: LEVOTHYROXINE SODIUM 75 MCG TABLET PO SCH (06:14)
[2020-09-04 06:21] LABS: BUN Creatinine Ratio 22.1 (10-20); Calcium 8.1 mg/dl (8.5-10.1); Creatinine Clr Calc Pharmacy 98.3 ml/min; Est GFR (African American) 115.7; Est GFR (Non-African American) 99.8; Magnesium 2.1 mg/dl (1.8-2.4); Potassium 4.5 mmol/L (3.5-5.1)
--- NOTE | 2020-09-04 07:08 | Hospitalist Progress Note ---
Date of Service September 04, 2020 Assessment & Plan (1) Alcohol dependence: (2) Acute dyspnea: (3) Acute hypokalemia: (4) Alcohol intoxication: (5) Tachycardia: ASSESSMENT AND PLAN: This is a 65-year-old female who presents with shortness of breath. 1. Shortness of breath. The patient has history of chronic obstructive pulmonary disease, but not in exacerbation. The patient has history of aspiration pneumonitis. There is no obvious aspiration on the CAT scan, no PE. . Currently, she is feeling better. Etiology unclear, could be from her ongoing alcoholism, electrolyte abnormalities or anxiety. We will keep her in the hospital and monitor. 2. Hypokalemia. We will replace. Patient's hydrochlorothiazide may need to be changed to different blood pressure medication. Follow the repeat labs in a.m. 3. Alcoholism. We will place her on gabapentin protocol. Received banana bag in the ER. Continue her home p.o. thiamine and folic acid, and Ativan p.r.n. 4. History of spontaneous pneumothorax, status post thoracotomy in the past. 5. History of hypertension. Continue holding hydrochlorothiazide. Monitor blood pressure. May need changing to different class of medication on discharge. 6. History of hypothyroidism. Continue Synthroid. 7. Gastroesophageal reflux disease. Continue Protonix. 8. History of chronic obstructive pulmonary disease. Continue home inhalers, currently stable. 9. Deep venous thrombosis prophylaxis, SCDs for now. 10. Disposition: Closely monitor in the med tele. Expect discharge home and follow with family doctor. Patient seen, feels a lot better, sleepy, Continue Etoh protocol, DC 1-2 days Labs checked ROS-No Headache, No Visual Changes, No Nausea, No Vomiting, No Fever, No Chills, No Neck Pain or Stiffness, No Chest Pain, No Palpitations, No SOB, No ROSS, No Cough, No Sputum, No Wheezing, No Abdominal Pain, No Diarrhea, No Hematemesis, No Hemoptysis, No Unexpected Weight Loss, No Flank pain, No Melena, No Hematochezia, No Frequency, No Urgency, No Burning, No Hematuria, No Rashes, No Diaphoresis. Appetite is Normal Physical Exam Gen-AAO x 3, NAD, Afebrile Head-NCAT, EOMI, PERRLA, Anicteric Sclera, No Posterior Pharyngeal Erythema Neck-Supple, No JVD, No Thyromegaly, No Masses, No LAD, No Bruits Lungs-Clear to Auscultation Bilaterally, No Rales, No Rhonchi, No Wheezing, No Crepitus Chest-No S4, +S1, +S2, No S3, No Murmurs, No Rubs, No Gallops, No Ectopy Abdomen-Soft, Bowel Sounds Present, Non Tender, Non Distended, No Hepatomegaly, No Splenomegaly, No Palpable Masses, No Rebound, No Rigidity, No Guarding Musculoskeletal-Full Range of Motion Bilaterally, No CVAT Extremities-No Cyanosis, No Clubbing, No Edema Nuero-Cranial Nerves II-XII grossly intact, Motor WNL, DTRs WNL, Strength WNL, Non Focal Psych-Normal Mood Admission and Anticipated Discharge Date Admission Date: September 04, 2020 Results & Data Results & Data ([facility]) Vital Signs (Past 12 Hours) Vital Signs Temp Pulse Pulse Resp BP BP Pulse Ox 09/04/20 01:27 94 H 09/04/20 01:15 36.6 C 58 L 18 96/52 L 96 09/04/20 00:31 83 16 98 09/04/20 00:30 83 13 103/56 L 99 09/04/20 00:01 85 17 95 09/04/20 00:00 89 17 94/48 L 95 09/03/20 23:31 93 H 21 97 09/03/20 23:30 96 H 22 100/49 L 98 09/03/20 23:01 93 H 16 94 09/03/20 23:00 92 H 18 115/68 93 09/03/20 22:50 100 H 19 93 09/03/20 22:40 86 18 95 09/03/20 22:39 85 17 105/50 L 95 09/03/20 22:31 95 H 15 97 09/03/20 22:30 84 18 88/37 L 96 09/03/20 22:20 84 17 95 09/03/20 22:10 87 22 94 09/03/20 22:01 96 H 21 94 09/03/20 22:00 90 18 106/59 L 94 09/03/20 21:50 89 22 95 09/03/20 21:40 97 H 20 94 09/03/20 21:31 93 H 19 96 09/03/20 21:30 93 H 15 95/47 L 96 09/03/20 21:20 87 16 09/03/20 21:10 93 H 19 09/03/20 21:01 89 17 09/03/20 21:00 90 17 92/44 L 09/03/20 20:50 96 H 19 96 09/03/20 20:45 104 H 17 139/71 99 09/03/20 20:40 19 95 09/03/20 20:26 105 H 30 H 122/65 09/03/20 20:25 103 H 22 122/65 99 09/03/20 20:20 109 H 21 09/03/20 20:10 92 H 25 H 09/03/20 20:01 92 H 26 H 09/03/20 20:00 95 H 18 134/75 09/03/20 19:58 99 09/03/20 19:56 100 H 28 H 98 09/03/20 19:50 102 H 27 H 96 09/03/20 19:42 94 H 18 98 09/03/20 19:41 98 H 23 158/96 H 99 09/03/20 19:33 37.0 C 93 H 30 H 158/96 H 99 (1) Alcohol dependence Substance use status: unspecified alcohol-induced disorder Qualified Code(s): F10.29 - Alcohol dependence with unspecified alcohol-induced disorder (2) Alcohol intoxication Complication of substance-induced condition: with unspecified complication Qualified Code(s): F10.929 - Alcohol use, unspecified with intoxication, unspecified
--- NOTE | 2020-09-04 08:09 | CT Scan Report ---
CT ANGIOGRAM OF THE CHEST CLINICAL HISTORY: Atypical chest pain. Possible acute pulmonary embolism COMPARISON STUDY: Chest x-ray dated 09/03/2020, CT scan dated 07/06/2020 TECHNIQUE: Following the IV administration of 89 mL of Optiray, CT angiogram of the thorax was perfor med from the thoracic inlet to the lung bases utilizing the pulmonary embolus protocol. Images are re viewed in the axial, sagittal, and coronal planes. IV contrast was administered without complication. MIP imaging was performed. A dose lowering technique was utilized adhering to the principles of ALA RA. CT DOSE: 299.35 mGy.cm FINDINGS: There is a 15 mm left adrenal adenoma. There is a 13 mm left lobe hepatic hypodensity which approache s water attenuation likely represents a cyst. No pathologically enlarged axillary mediastinal or hilar lymph nodes were visualized. There was no evidence of thoracic aortic dilatation. Atheromatous changes involve the origin of the g reat vessels. There are no pulmonary artery filling defects to indicate acute pulmonary embolism There are a few calcified pleural plaques. There is right lateral pleural thickening. There is mildly severe pulmonary emphysema. There are biapical pleural-parenchymal opacities, likely representing areas of scarring. There is a stable 5 mm left upper lobe pulmonary nodule. IMPRESSION: 1. No evidence of acute pulmonary embolism 2. Moderately severe pulmonary emphysema with areas of pleural thickening and calcified pleural plaqu es 3. Biapical opacities likely representing pleural-parenchymal scarring 4. Stable 5 mm solid left upper lobe pulmonary nodule 5. 15 mm left adrenal adenoma ACT 112: Negative or not required by law. Electronically signed by: Jefferson Velasquez M.D. 09/04/2020 8:07 AM
[2020-09-04] MEDS: ATORVASTATIN 10 MG TAB PO SCH (08:13)
[2020-09-04] MEDS: GABAPENTIN 600 MG TAB PO SCH ×3 (08:13→21:46)
[2020-09-04] MEDS: SACCHAROMYCES BOULARDII 250 MG CAP PO SCH (08:14)
[2020-09-04] MEDS: FOLIC ACID 1 MG TAB PO SCH (08:14)
[2020-09-04] MEDS: PANTOprazole 40 MG TAB PO SCH (08:14)
[2020-09-04] MEDS: THIAMINE HCL 100 MG TAB PO SCH (08:14)
[2020-09-04] MEDS: UMECLIDINIUM BROMIDE 62.5MCG/BLISTER 7 PUFFS/INHALER INH SCH (08:15)
[2020-09-04] MEDS: UMECLIDINIUM/VILANTEROL 62.5/25MCG 7 PUFFS/INHALER INH SCH (08:15)
--- NOTE | 2020-09-04 08:28 | XRay Report ---
XR chest 1V portable CLINICAL HISTORY: Atypical chest pain COMPARISON STUDY: 07/06/2020 FINDINGS: The patient is hyperinflated. There is nonspecific apical opacity statistically representin g pleural-parenchymal scarring. There is no acute parenchymal consolidation. There are no significant pleural effusions. There is minor pleural thickening/scarring at the right lung base. IMPRESSION: Pulmonary emphysema. No acute findings. ACT 112: Negative or not required by law. Electronically signed by: Jefferson Velasquez M.D. 09/04/2020 8:27 AM
--- NOTE | 2020-09-04 22:00 | Electrocardiogram Report ---
Test Reason : Blood Pressure : / mmHG Vent. Rate : 094 BPM Atrial Rate : 094 BPM P-R Int : 138 ms QRS Dur : 088 ms QT Int : 376 ms P-R-T Axes : 075 077 076 degrees QTc Int : 470 ms Poor data quality, interpretation may be adversely affected Normal sinus rhythm Normal ECG When compared with ECG of 07-JUL-2020 13:27, No significant change was found Confirmed by Jefferson Dean ([id number]) on 09/04/2020 9:59:40 PM Referred By: REFERRED SELF Confirmed By:Jefferson Dean
[2020-09-05] MEDS: GABAPENTIN 600 MG TAB PO SCH ×2 (06:07→14:29)
[2020-09-05] MEDS: LEVOTHYROXINE SODIUM 75 MCG TABLET PO SCH (06:07)
[2020-09-05 06:47] LABS: Hematocrit (blood only) 37.7 % (37-47); Hemoglobin 12.5 g/dL (12.0-16.0); Mean Corpuscular Hemoglobin 31.1 pg (25-34); Mean Corpuscular Hgb Conc 33.2 g/dL (32-36); Mean Corpuscular Volume 93.8 fL (80-100); Mean Platelet Volume 9.4 fL (7.4-10.4); Platelet Count 285 K/uL (130-400); RDW Coefficient of Variation 13.8 % (11.5-14.5); RDW Standard Deviation 47.9 fL (36.4-46.3); Red Blood Count 4.02 M/uL (4.2-5.4); White Blood Count 6.83 K/uL (4.8-10.8)
[2020-09-05 07:15] LABS: BUN Creatinine Ratio 27.1 (10-20); Calcium 8.4 mg/dl (8.5-10.1); Creatinine Clr Calc Pharmacy 95.1 ml/min; Est GFR (African American) 114.3; Est GFR (Non-African American) 98.7
--- NOTE | 2020-09-05 07:50 | Hospitalist Progress Note ---
Date of Service September 05, 2020 Assessment & Plan (1) Alcohol dependence: (2) Acute dyspnea: (3) Acute hypokalemia: (4) Alcohol intoxication: (5) Tachycardia: ASSESSMENT AND PLAN: This is a 65-year-old female who presents with shortness of breath. 1. Shortness of breath-Resolved. 2. Hypokalemia. Resolved 3. Alcoholism. Continue Alcohol protocol-still shaky 4. History of spontaneous pneumothorax, status post thoracotomy in the past. 5. History of hypertension. Continue holding hydrochlorothiazide. Monitor blood pressure. May need changing to different class of medication on discharge. 6. History of hypothyroidism. Continue Synthroid. 7. Gastroesophageal reflux disease. Continue Protonix. 8. History of chronic obstructive pulmonary disease. Continue home inhalers, currently stable. 9. Deep venous thrombosis prophylaxis, SCDs for now. 10. Disposition: Closely monitor in the med tele. Expect discharge home and follow with family doctor. Patient seen, feels better, Still weak and shaky, Continue Etoh protocol DC 1-2 days Labs checked ROS-No Headache, No Visual Changes, No Nausea, No Vomiting, No Fever, No Chills, No Neck Pain or Stiffness, No Chest Pain, No Palpitations, No SOB, No ROSS, No Cough, No Sputum, No Wheezing, No Abdominal Pain, No Diarrhea, No Hematemesis, No Hemoptysis, No Unexpected Weight Loss, No Flank pain, No Melena, No Hematochezia, No Frequency, No Urgency, No Burning, No Hematuria, No Rashes, No Diaphoresis. Appetite is Normal, Shaky Physical Exam Gen-AAO x 3, NAD, Afebrile Head-NCAT, EOMI, PERRLA, Anicteric Sclera, No Posterior Pharyngeal Erythema Neck-Supple, No JVD, No Thyromegaly, No Masses, No LAD, No Bruits Lungs-Clear to Auscultation Bilaterally, No Rales, No Rhonchi, No Wheezing, No Crepitus Chest-No S4, +S1, +S2, No S3, No Murmurs, No Rubs, No Gallops, No Ectopy Abdomen-Soft, Bowel Sounds Present, Non Tender, Non Distended, No Hepatomegaly, No Splenomegaly, No Palpable Masses, No Rebound, No Rigidity, No Guarding Musculoskeletal-Full Range of Motion Bilaterally, No CVAT Extremities-No Cyanosis, No Clubbing, No Edema Nuero-Cranial Nerves II-XII grossly intact, Motor WNL, DTRs WNL, Strength WNL, Non Focal Psych-Normal Mood Admission and Anticipated Discharge Date Admission Date: September 04, 2020 Results & Data Results & Data ([facility]) Vital Signs (Past 12 Hours) Vital Signs Temp Pulse Pulse Resp BP BP Pulse Ox 09/05/20 07:00 36.5 C 96 H 16 101/68 92 09/05/20 03:15 36.4 C L 82 18 117/77 92 09/05/20 00:11 83 09/04/20 22:56 37.1 C 82 18 126/66 92 (1) Alcohol dependence Substance use status: unspecified alcohol-induced disorder Qualified Code(s): F10.29 - Alcohol dependence with unspecified alcohol-induced disorder (2) Alcohol intoxication Complication of substance-induced condition: with unspecified complication Qualified Code(s): F10.929 - Alcohol use, unspecified with intoxication, unspecified
[2020-09-05] MEDS: THIAMINE HCL 100 MG TAB PO SCH (08:46)
[2020-09-05] MEDS: FOLIC ACID 1 MG TAB PO SCH (08:46)
[2020-09-05] MEDS: PANTOprazole 40 MG TAB PO SCH (08:47)
[2020-09-05] MEDS: UMECLIDINIUM/VILANTEROL 62.5/25MCG 7 PUFFS/INHALER INH SCH (08:48)
[2020-09-05] MEDS: SACCHAROMYCES BOULARDII 250 MG CAP PO SCH (08:48)
[2020-09-05] MEDS: UMECLIDINIUM BROMIDE 62.5MCG/BLISTER 7 PUFFS/INHALER INH SCH ×2 (08:48→08:52)
[2020-09-05] MEDS: ATORVASTATIN 10 MG TAB PO SCH (08:48)
[2020-09-06] MEDS: ACETAMINOPHEN 325 MG TAB PO PRN ×2 (01:07→05:56)
[2020-09-06] MEDS ORDERED: GABAPENTIN 600 MG TAB PO SCH (02:00)
[2020-09-06] MEDS: LEVOTHYROXINE SODIUM 75 MCG TABLET PO SCH (05:56)
[2020-09-06 07:20] LABS: Hematocrit (blood only) 39.4 % (37-47); Hemoglobin 13.2 g/dL (12.0-16.0); Mean Corpuscular Hemoglobin 31.3 pg (25-34); Mean Corpuscular Hgb Conc 33.5 g/dL (32-36); Mean Corpuscular Volume 93.4 fL (80-100); Mean Platelet Volume 9.4 fL (7.4-10.4); Platelet Count 283 K/uL (130-400); RDW Coefficient of Variation 13.7 % (11.5-14.5); RDW Standard Deviation 46.9 fL (36.4-46.3); Red Blood Count 4.22 M/uL (4.2-5.4); White Blood Count 7.82 K/uL (4.8-10.8)
[2020-09-06 07:57] LABS: BUN Creatinine Ratio 36.2 (10-20); Calcium 8.8 mg/dl (8.5-10.1); Creatinine Clr Calc Pharmacy 103.5 ml/min; Est GFR (African American) 117.9; Est GFR (Non-African American) 101.7
--- NOTE | 2020-09-06 09:19 | Discharge Summary ---
Date of Service September 06, 2020 Admission HPI Per Admitting Provider 65-year-old female with past medical history significant for hypothyroidism, hyperlipidemia, history of emphysema, history of pulmonary lung nodule, hypertension, history of tachycardia, generalized osteoarthritis, hiatal hernia, ongoing alcoholism, tobacco use disorder, presents with shortness of breath. The patient says she went to [facility] and on the way back, she suddenly felt short of breath. She could not breathe and she came to the ER. When she came to the ER, she was not hypoxic, but she seemed to be somewhat tachypneic and tachycardic. Anyway, she was placed on oxygen. She was saturating fine. CTA of the chest, no PE or any infiltrates. Currently resting comfortably and hemodynamically stable. Currently, she no longer feels short of breath. She drinks alcohol, 6 beers every day. She drank about 5 beers today. Alcohol was 209. Her potassium level is 2.6. Sodium 135. Rest of the labs are okay. She had a similar episode in first week of July. At that time, she had aspiration pneumonitis and COPD exacerbation, but currently she is not in COPD exacerbation. There is no obvious aspiration. Denies any fever, chills, no cough, no chest pain. No headache, no blurred vision, no earache, no runny nose, no sore throat. No nausea, no abdominal pain. Normal bowel and bladder movements. Her second COVID shot was given last Saturday. Admission Exam Per Admitting Provider GENERAL: The patient is of moderate build, not in acute distress. VITAL SIGNS: Temperature 37, pulse 93, respiratory rate 16, blood pressure 115/68, oxygen 94% on 2 liters. HEENT: Pupils equal, round, reactive to light. Oral mucosa moist. NECK: No JVD, no neck masses. CARDIOVASCULAR: S1, S2 heard, regular rate and rhythm, no murmur, no gallop. RESPIRATORY SYSTEM: Normal AP diameter. No accessory muscle use. No wheezing, no crackles. ABDOMEN: Soft, bowel sounds present, nontender. No distention. CENTRAL NERVOUS SYSTEM: Cranial nerves II-XII grossly intact. Nonfocal. EXTREMITIES: No edema, no erythema. Principal Diagnosis 1. Shortness of breath 2. Hypokalemia. 3. Alcoholism. 4. History of spontaneous pneumothorax 5. Hypertension. 6. Hypothyroidism. 7. Gastroesophageal reflux disease. 8. History of chronic obstructive pulmonary disease. Discharge Exam See below Discharge Data Allergies Allergy/AdvReac Type Severity Reaction Status Date / Time No Known Allergies Allergy Verified 09/03/20 20:31 Consultations 09/03/20 22:02 ED Decision to Admit Stat Ordered Studies 09/03/20 19:51 CT angio chest PE protocol Stat Hospital Course (1) Alcohol dependence: (2) Acute dyspnea: (3) Acute hypokalemia: (4) Alcohol intoxication: (5) Tachycardia: ASSESSMENT AND PLAN: This is a 65-year-old female who presents with shortness of breath. 1. Shortness of breath-Resolved. 2. Hypokalemia. Resolved 3. Alcoholism. Continue Alcohol protocol-still shaky 4. History of spontaneous pneumothorax, status post thoracotomy in the past. 5. History of hypertension. Continue holding hydrochlorothiazide. Monitor blood pressure. May need changing to different class of medication on discharge. 6. History of hypothyroidism. Continue Synthroid. 7. Gastroesophageal reflux disease. Continue Protonix. 8. History of chronic obstructive pulmonary disease. Continue home inhalers, currently stable. 9. Deep venous thrombosis prophylaxis, SCDs for now. 10. Disposition: Closely monitor in the med tele. Expect discharge home and follow with family doctor. Patient seen, feels better, Shakes are gone DC Home today Labs checked ROS-No Headache, No Visual Changes, No Nausea, No Vomiting, No Fever, No Chills, No Neck Pain or Stiffness, No Chest Pain, No Palpitations, No SOB, No ROSS, No Cough, No Sputum, No Wheezing, No Abdominal Pain, No Diarrhea, No Hematemesis, No Hemoptysis, No Unexpected Weight Loss, No Flank pain, No Melena, No Hematochezia, No Frequency, No Urgency, No Burning, No Hematuria, No Rashes, No Diaphoresis. Appetite is Normal Physical Exam Gen-AAO x 3, NAD, Afebrile Head-NCAT, EOMI, PERRLA, Anicteric Sclera, No Posterior Pharyngeal Erythema Neck-Supple, No JVD, No Thyromegaly, No Masses, No LAD, No Bruits Lungs-Clear to Auscultation Bilaterally, No Rales, No Rhonchi, No Wheezing, No Crepitus Chest-No S4, +S1, +S2, No S3, No Murmurs, No Rubs, No Gallops, No Ectopy Abdomen-Soft, Bowel Sounds Present, Non Tender, Non Distended, No Hepatomegaly, No Splenomegaly, No Palpable Masses, No Rebound, No Rigidity, No Guarding Musculoskeletal-Full Range of Motion Bilaterally, No CVAT Extremities-No Cyanosis, No Clubbing, No Edema Nuero-Cranial Nerves II-XII grossly intact, Motor WNL, DTRs WNL, Strength WNL, Non Focal Psych-Normal Mood Total Time Total Time Spent Total Time Spent (In Minutes): 45 mins Total Time Includes: Examination of the Patient, Discharge Planning and Medication Reconciliation Discharge Plan Discharge Items Patient Disposition: Home - Self-Care Reason For Visit: SOB Discharge Diagnosis: 1. Shortness of breath 2. Hypokalemia. 3. Alcoholism. 4. History of spontaneous pneumothorax 5. Hypertension. 6. Hypothyroidism. 7. Gastroesophageal reflux disease. 8. History of chronic obstructive pulmonary disease. Condition on Discharge: Good Health Concerns: Drinking Activity: Resume your previous activity Lifting: Gradually increase as tolerated Bathing: No limitations Sexual Activity: When tolerated Exercise/Sports: Gradually increase as tolerated Driving/Machine Use: No limitations Weightbearing: Full weightbearing Non-emergency contact: Primary Care Provider Call non-emergency contact if: you have any medication questions Follow-up/Referrals: Liliane Pena DO [Primary Care Provider] - (Date & Time 09/09/2020 11:10 AM Provider Liliane Pena DO Department Family [facility] ) Diet: Regular Addtl Attending Provider Instructions: Try to seek alcohol rehab guidance Pending Studies at Discharge: No Stand-Alone Forms: My [facility], Smoking Cessation Medications and DC Order Prescriptions: New folic acid 1 mg Tablet 1 mg PO QAM Qty: 30 RF: 0 thiamine HCl (vitamin B1) [Vitamin B-1] 100 mg Tablet 100 mg PO QAM Qty: 30 RF: 0 oxazepam 15 mg capsule 15 mg PO Q8H PRN (Reason: alcohol withdrawal) Qty: 20 RF: 0 Continued atorvastatin 10 mg tablet 10 mg PO DAILY RF: 0 pantoprazole 20 mg tablet,delayed release (DR/EC) 20 mg PO DAILY RF: 0 levothyroxine 75 mcg tablet 75 mcg PO DAILY RF: 0 hydrochlorothiazide 25 mg tablet 25 mg PO DAILY RF: 0 Saccharomyces boulardii [Daily Probiotic (S. boulardii)] 250 mg capsule 250 mg PO DAILY Qty: 10 RF: 0 Spiriva with HandiHaler 18 mcg capsule, w/inhalation device 1 cap inhalation DAILY Qty: 30 RF: 0 albuterol sulfate 90 mcg/actuation HFA aerosol inhaler 1 inh inhalation Q6H PRN (Reason: shortness of breath or wheezing) Qty: 8.5 RF: 0 Anoro Ellipta 62.5-25 mcg/actuation blister with device 1 inh INHALATION DAILY RF: 0 Discontinued folic acid 1 mg Tablet 1 mg PO QAM Qty: 14 RF: 0 thiamine HCl (vitamin B1) [Vitamin B-1] 100 mg Tablet 100 mg PO QAM Qty: 14 RF: 0 Discharge Orders: Discharge Order (Routine); Ordered 09/06/20 Ordered By: Ricardo Aceves/Other Patient Handouts: Alcohol Addiction, Alcoholism How to be Part of the ..., Alcoholism Resources, Alcoholism: Getting Help, Alcoholism: Myths and Facts Admission Data Admit Date/Time: 09/04/20 00:40 Attending Provider: Ricardo Ricardo Admit Provider: Jose G Ward Primary Care Provider: Liliane Pena Other Providers: Jose G Ward
[2020-09-06] MEDS: ATORVASTATIN 10 MG TAB PO SCH (09:47)
[2020-09-06] MEDS: SACCHAROMYCES BOULARDII 250 MG CAP PO SCH (09:47)
[2020-09-06] MEDS: FOLIC ACID 1 MG TAB PO SCH (09:47)
[2020-09-06] MEDS: PANTOprazole 40 MG TAB PO SCH (09:47)
[2020-09-06] MEDS: THIAMINE HCL 100 MG TAB PO SCH (09:47)
[2020-09-06] MEDS: UMECLIDINIUM BROMIDE 62.5MCG/BLISTER 7 PUFFS/INHALER INH SCH (09:48)
[2020-09-06] MEDS: UMECLIDINIUM/VILANTEROL 62.5/25MCG 7 PUFFS/INHALER INH SCH (09:48)
[2020-09-07] MEDS ORDERED: GABAPENTIN 600 MG TAB PO SCH (14:00)
== END 2020-09-06 11:34 | disposition home or self-care (01) | DRG 204 ==
LOC: ED 19:33 → 2N 09-04 00:40

== ENCOUNTER 2021-09-13 08:38 | Observation (INO) ==
--- NOTE | 2021-09-13 08:48 | Emergency Department Note ---
Impression & Plan Hypoxemia, Alcohol dependence, COPD (chronic obstructive pulmonary disease) ED Provider Note NAME: ASHLEY GODINEZ AGE: 66 SEX: F : 1955 ARRIVES VIA: Walk-In INFORMANT: Patient, ED PROVIDER(S): Aramis Husain MD Chief Complaint: Arm pain HPI: Patient presents with concern for left upper extremity arm pain which is primarily in the left upper arm but sometimes will shoot clear down into her elbow but also up into her shoulder and neck area. Patient denies any chest pains. The patient has had shortness of breath but is a former smoker with a history of COPD and states that this is chronic and unchanged. No history of DVT or PE. The patient denies any nausea vomiting or diaphoresis. The patient did try to take some ibuprofen at home when her symptoms began last evening but she is not had improvement in symptoms. The patient denies any recent overuse or injury. The patient is right-hand dominant. Patient denies any headache. Patient denies any numbness tingling or focal weakness. Patient does admit to drinking 4-5 beers daily last drink was 4 PM yesterday. Patient denies any current tobacco or drug use. Patient also thought she had some shooting pains in her bilateral lower extremities. No recent falls or trauma. The patient denies any numbness tingling or weakness in the lower extremities. No bowel or bladder incontinence or retention. ROS: See HPI for pertinent positives and negatives. A total of 10 systems were reviewed and otherwise negative. Past medical history: See below Surgical history: See below Social history: See below Physical Exam: GENERAL: NAD, wearing a mask, non-toxic. EYE EXAM: Normal conjunctiva. PERRL, no anisocoria and EOM's grossly intact w/o pain. OROPHARYNX: Moist mucus membranes. Grossly normal dentition. NECK: Supple, no nuchal rigidity, no adenopathy, non-tender. No signs of meningismus. FROM of the neck with good chin to chest and neck extension. No stridor. LUNGS: Slightly decreased. Normal chest wall mechanics. HEART: Tachycardic and regular, no MRG. ABDOMEN: Abdomen soft, non-tender, normo-active bowel sounds, no masses, no rebound or guarding. BACK: No CVA TTP. SKIN: No rashes and no bruising. UPPER EXTREMITIES: Upper extremity mid humeral pain without obvious deformity, pain with range of motion at the shoulder, median ulnar and radial nerves intact distally to sensation and motor, good radial pulse and no obvious swelling or crepitus. Compartments are soft. LOWER EXTREMITIES: Grossly normal, no edema. NEURO EXAM: A&O x3, cranial nerves II-XII grossly intact, normal speech, moves all 4 extremities on command w/o issue. Differential diagnoses: Fracture, subluxation, dislocation, contusion, ligamentous injury, neurovascular, compartment syndrome, rhabdomyolysis, as well as other pathologies. Course: Patient was seen and evaluated the bedside. Full history physical exam was performed. EKG interpreted by me Sinus tachycardia, rate of 125, normal intervals, normal axis, slight depressions in the lateral leads. Patient slight depressions appear to be to be old but may be slightly more pronounced from comparison EKG September 03, 2020. Imaging Studies: See Below Cardiac monitoring: An order was placed for continuous cardiac monitoring. The monitor shows a rate of 122 with tachycardic and regular rhythm. MDM: Patient presents with concern for left upper extremity pain. Patient denies any chest pain does have chronic shortness of breath. Blood work was obtained along with an EKG troponin chest x-ray. Patient was given pain medication. The patient was also given a small amount of Ativan given the patient's chronic alcohol use and last drink being 17 hours prior. Patient was ordered IV fluids chest x-ray and upper extremity films. Patient does not have any signs or stigmata of DVT or arterial thrombus based on exam. Patient did become hypoxemic at 83%. Patient had taken off her oxygen at that time. Patient does not wear oxygen at home. Patient does have a known history of COPD/emphysema and the patient had been given some medications which may cause some hypoxemia. CT angiography of the chest was obtained along with a repeat troponin and VBG. VBG does not show any evidence of hypercarbia and the patient CT does not show evidence of PE. Patient did have a repeat EKG and troponin. The troponin does not show any increase. The patient's ambulatory pulse ox trial showed that the patient was still hypoxemic at 87%. Given this concern I did speak with the on-call hospitalist Elisha Tinoco PA-C the patient was admitted by Dr. Chen. Critical Care: I have personally spent 35 minutes of critical care time in direct management of this patient. This includes bedside care, interpretation of diagnostic studies, and testing, discussion with consultants, patient, and family members, and other require inpatient management activities. This 35 minutes is in excess of all separately billable procedures. Past Med/Surg History Medical History Alcohol dependence COPD (chronic obstructive pulmonary disease) GERD (gastroesophageal reflux disease) Hepatic steatosis HLD (hyperlipidemia) Hypertension Hypothyroidism SANDRA (obstructive sleep apnea) Tobacco abuse disorder Surgical History History of colonoscopy History of esophagogastroduodenoscopy (EGD) History of thoracotomy Family History Mother Pancreatic cancer Father , fatal SD @ 42 Myocardial infarction Social History Smoking Status: Never smoker Cigarettes Per Day: 10; Second Hand Exposure: No; Hx Alcohol Use: Yes Alcohol type: beer Hx Substance Use: Yes Last Used Substance: Hours (ago) Preferred Language: Faroese Communication Ability: Effective Core Dipper Required: No Beliefs That Will Affect Care: None marital status: Current Living Situation: Spouse Feels Safe at Home: Yes Assistive Devices: Glasses Allergies Allergies Allergy/AdvReac Type Severity Reaction Status Date / Time No Known Allergies Allergy Verified 09/13/21 09:45 Home Meds Home Medications Medication Instructions Recorded Confirmed atorvastatin 10 mg tablet 10 mg PO QAM 07/06/20 09/13/21 levothyroxine 75 mcg tablet 75 mcg PO QAM 07/06/20 09/13/21 pantoprazole 20 mg tablet,delayed 20 mg PO DAILY 07/06/20 09/13/21 release acetaminophen 325 mg tablet 325 mg PO Q6H PRN 09/13/21 09/13/21 albuterol sulfate 90 mcg/actuation 2 puff INHALATION Q6H PRN 09/13/21 09/13/21 aerosol inhaler (Ventolin HFA) cyanocobalamin (vitamin B-12) 100 100 mcg PO QAM 09/13/21 09/13/21 mcg tablet diclofenac sodium 1 % gel topical 2 g TOPICAL QID PRN 09/13/21 09/13/21 kit fluticasone fur. 100 mcg-umeclid 1 inh INHALATION QAM 09/13/21 09/13/21 62.5 mcg-vilant 25 mcg inhalat.powder (Trelegy Ellipta) ketoconazole 2 % shampoo 2 ea TOPICAL [id number] 09/13/21 09/13/21 losartan 25 mg tablet 25 mg PO QAM 09/13/21 09/13/21 Previous Rx's Medication Instructions Recorded albuterol sulfate 90 mcg/actuation 1 inh INHALATION Q6H PRN #8.5 g 07/08/20 aerosol inhaler Results & Data (ED) Vital Signs Vital Signs - 24 hr 09/13/21 08:54 09/13/21 08:58 09/13/21 09:00 Temperature 36.8 C Temperature Source Oral Pulse Rate 138 H 130 H Pulse Rate from SpO2 Sensor Pulse Rhythm Regular Pulse Strength Normal Respiratory Rate 20 14 Respiratory Effort / Characteristics Non-Labored Spontaneous Respiratory Depth Normal Respiratory Pattern Regular Blood Pressure 142/97 H 115/79 Blood Pressure Mean 112 91 Blood Pressure Position Sitting Pulse Oximetry 96 94 Oxygen Delivery Method Room Air Room Air Oxygen Flow Rate Sepsis Recent Fever Within 48 Hours No Sepsis New/Unexplained Change in Mental Status No Sepsis Action Taken by Nursing No Action Required Oxygen Flow Rate - Titration Pulse Oximetry Post Tiitration 09/13/21 09:26 09/13/21 09:30 09/13/21 10:00 Temperature Temperature Source Pulse Rate 109 H 101 H Pulse Rate from SpO2 Sensor 108 H Pulse Rhythm Pulse Strength Respiratory Rate 14 18 Respiratory Effort / Characteristics Respiratory Depth Respiratory Pattern Blood Pressure 154/101 H 132/90 Blood Pressure Mean 118 104 Blood Pressure Position Pulse Oximetry 89 L 100 Oxygen Delivery Method Room Air Oxygen Flow Rate 0 Sepsis Recent Fever Within 48 Hours Sepsis New/Unexplained Change in Mental Status Sepsis Action Taken by Nursing Oxygen Flow Rate - Titration 2 Pulse Oximetry Post Tiitration 95 09/13/21 10:30 09/13/21 10:48 09/13/21 10:50 Temperature Temperature Source Pulse Rate 99 H 93 H Pulse Rate from SpO2 Sensor 100 H 90 Pulse Rhythm Pulse Strength Respiratory Rate 18 17 Respiratory Effort / Characteristics Respiratory Depth Respiratory Pattern Blood Pressure 151/99 H Blood Pressure Mean 116 Blood Pressure Position Pulse Oximetry 93 83 L 96 Oxygen Delivery Method Oxygen Flow Rate 0 Sepsis Recent Fever Within 48 Hours Sepsis New/Unexplained Change in Mental Status Sepsis Action Taken by Nursing Oxygen Flow Rate - Titration 2 Pulse Oximetry Post Tiitration 98 09/13/21 11:00 09/13/21 11:10 09/13/21 11:20 Temperature Temperature Source Pulse Rate 99 H 100 H 108 H Pulse Rate from SpO2 Sensor 101 H 108 H Pulse Rhythm Pulse Strength Respiratory Rate 18 16 29 H Respiratory Effort / Characteristics Respiratory Depth Respiratory Pattern Blood Pressure 163/90 H Blood Pressure Mean 114 Blood Pressure Position Pulse Oximetry 96 94 Oxygen Delivery Method Oxygen Flow Rate Sepsis Recent Fever Within 48 Hours Sepsis New/Unexplained Change in Mental Status Sepsis Action Taken by Nursing Oxygen Flow Rate - Titration Pulse Oximetry Post Tiitration 09/13/21 11:30 09/13/21 11:40 09/13/21 11:50 Temperature Temperature Source Pulse Rate 109 H 109 H 102 H Pulse Rate from SpO2 Sensor 103 H 105 H 91 H Pulse Rhythm Pulse Strength Respiratory Rate 20 20 18 Respiratory Effort / Characteristics Respiratory Depth Respiratory Pattern Blood Pressure 135/77 Blood Pressure Mean 96 Blood Pressure Position Pulse Oximetry 94 94 96 Oxygen Delivery Method Oxygen Flow Rate Sepsis Recent Fever Within 48 Hours Sepsis New/Unexplained Change in Mental Status Sepsis Action Taken by Nursing Oxygen Flow Rate - Titration Pulse Oximetry Post Tiitration 09/13/21 12:00 09/13/21 12:10 09/13/21 12:20 Temperature Temperature Source Pulse Rate 100 H 100 H 103 H Pulse Rate from SpO2 Sensor 103 H 96 H 100 H Pulse Rhythm Pulse Strength Respiratory Rate 15 18 20 Respiratory Effort / Characteristics Respiratory Depth Respiratory Pattern Blood Pressure 123/86 Blood Pressure Mean 98 Blood Pressure Position Pulse Oximetry 99 100 91 Oxygen Delivery Method Oxygen Flow Rate Sepsis Recent Fever Within 48 Hours Sepsis New/Unexplained Change in Mental Status Sepsis Action Taken by Nursing Oxygen Flow Rate - Titration Pulse Oximetry Post Tiitration 09/13/21 12:30 09/13/21 12:43 09/13/21 12:50 Temperature Temperature Source Pulse Rate 99 H 102 H 99 H Pulse Rate from SpO2 Sensor 104 H 97 H Pulse Rhythm Pulse Strength Respiratory Rate 16 18 Respiratory Effort / Characteristics Respiratory Depth Respiratory Pattern Blood Pressure 118/79 Blood Pressure Mean 92 Blood Pressure Position Pulse Oximetry 93 95 Oxygen Delivery Method Oxygen Flow Rate Sepsis Recent Fever Within 48 Hours Sepsis New/Unexplained Change in Mental Status Sepsis Action Taken by Nursing Oxygen Flow Rate - Titration Pulse Oximetry Post Tiitration 09/13/21 13:00 09/13/21 13:05 09/13/21 13:10 Temperature Temperature Source Pulse Rate 109 H 109 H 103 H Pulse Rate from SpO2 Sensor 110 H 104 H Pulse Rhythm Pulse Strength Respiratory Rate 18 29 H 18 Respiratory Effort / Characteristics Respiratory Depth Respiratory Pattern Blood Pressure 146/80 H Blood Pressure Mean 102 Blood Pressure Position Pulse Oximetry 93 88 L Oxygen Delivery Method Oxygen Flow Rate Sepsis Recent Fever Within 48 Hours Sepsis New/Unexplained Change in Mental Status Sepsis Action Taken by Nursing Oxygen Flow Rate - Titration Pulse Oximetry Post Tiitration 09/13/21 13:20 09/13/21 13:30 09/13/21 13:40 Temperature Temperature Source Pulse Rate 103 H 106 H 101 H Pulse Rate from SpO2 Sensor 102 H 95 H 99 H Pulse Rhythm Pulse Strength Respiratory Rate 19 19 15 Respiratory Effort / Characteristics Respiratory Depth Respiratory Pattern Blood Pressure 144/83 H Blood Pressure Mean 103 Blood Pressure Position Pulse Oximetry 90 94 90 Oxygen Delivery Method Oxygen Flow Rate Sepsis Recent Fever Within 48 Hours Sepsis New/Unexplained Change in Mental Status Sepsis Action Taken by Nursing Oxygen Flow Rate - Titration Pulse Oximetry Post Tiitration 09/13/21 13:50 09/13/21 14:00 Temperature Temperature Source Pulse Rate 105 H 98 H Pulse Rate from SpO2 Sensor 102 H Pulse Rhythm Pulse Strength Respiratory Rate 15 20 Respiratory Effort / Characteristics Respiratory Depth Respiratory Pattern Blood Pressure 117/70 Blood Pressure Mean 85 Blood Pressure Position Pulse Oximetry 90 Oxygen Delivery Method Oxygen Flow Rate Sepsis Recent Fever Within 48 Hours Sepsis New/Unexplained Change in Mental Status Sepsis Action Taken by Nursing Oxygen Flow Rate - Titration Pulse Oximetry Post Tiitration Home Medications Current Medication List: was personally reviewed by me Laboratory Data Attestation: I reviewed the patient's lab results. Result diagrams: 09/13/21 09:00 09/13/21 09:00 Lab Results 09/13/21 09/13/21 09/13/21 Range/Units 09:00 09:00 09:00 WBC 15.31 H (4.8-10.8) K/uL RBC 4.68 (4.2-5.4) M/uL Hgb 14.3 (12.0-16.0) g/dL Hct 42.9 (37-47) % MCV 91.7 (80-100) fL MCH 30.6 (25-34) pg MCHC 33.3 (32-36) g/dL RDW Std Deviation 46.6 H (36.4-46.3) fL RDW Coeff of Angela 13.9 (11.5-14.5) % Plt Count 348 (130-400) K/uL MPV 10.6 H (7.4-10.4) fL Immature Gran % (Auto) 0.3 % Neut % (Auto) 76.2 % Lymph % (Auto) 14.6 % [place] % (Auto) 8.0 % Eos % (Auto) 0.8 % Baso % (Auto) 0.1 % Neut # (Auto) 11.66 H (1.4-6.5) K/uL Lymph # (Auto) 2.23 (1.2-3.4) K/uL [place] # (Auto) 1.23 H (0.11-0.59) K/uL Eos # (Auto) 0.13 (0-0.5) K/uL Baso # (Auto) 0.01 (0-0.2) K/uL Immature Gran # (Auto) 0.05 H (0.00-0.02) K/uL VBG pH (7.36-7.41) VBG pCO2 (38-50) mmHg VBG pO2 mmHg VBG HCO3 mmol/L VBG O2 Saturation % VBG Base Excess mEq/L Barometric Pressure mm/Hg Sodium 136 (136-145) mmol/L Potassium 3.9 (3.5-5.1) mmol/L Chloride 100 (98-107) mmol/L Carbon Dioxide 24 (21-32) mmol/L Anion Gap 12 H (3-11) BUN 18 (6-23) mg/dl Creatinine 0.72 (0.6-1.2) mg/dl Est Cr Clr Drug Dosing 74.6 ml/min Est GFR ( Amer) 102.6 ml/min Est GFR (Non-Af Amer) 88.5 ml/min BUN/Creatinine Ratio 25.0 H (10-20) Glucose 152 H (70-99(Fasting)) mg/dl Calcium 9.5 (8.5-10.1) mg/dl Phosphorus 3.6 (2.5-4.9) mg/dl Magnesium 1.9 (1.7-2.4) mg/dl Total Bilirubin 0.9 (0.2-1.0) mg/dl AST 21 (13-39) U/L ALT 37 (7-52) U/L Alkaline Phosphatase 70 (34-104) U/L Troponin I High Sens 6.2 (0-14) pg/ml Total Protein 7.3 (6.0-8.3) gm/dl Albumin 4.4 (3.4-5.0) gm/dl Globulin 2.9 (2.5-4.0) gm/dl Albumin/Globulin Ratio 1.5 (0.9-2) Procalcitonin (0-0.5) ng/ml TSH 11.178 H (0.300-4.500) uIu/ml Free T4 0.79 (0.61-1.60) ng/dl Ethyl Alcohol mg/dL (<10.0) mg/dl 09/13/21 09/13/21 09/13/21 Range/Units 09:00 09:00 12:08 WBC (4.8-10.8) K/uL RBC (4.2-5.4) M/uL Hgb (12.0-16.0) g/dL Hct (37-47) % MCV (80-100) fL MCH (25-34) pg MCHC (32-36) g/dL RDW Std Deviation (36.4-46.3) fL RDW Coeff of Angela (11.5-14.5) % Plt Count (130-400) K/uL MPV (7.4-10.4) fL Immature Gran % (Auto) % Neut % (Auto) % Lymph % (Auto) % [place] % (Auto) % Eos % (Auto) % Baso % (Auto) % Neut # (Auto) (1.4-6.5) K/uL Lymph # (Auto) (1.2-3.4) K/uL [place] # (Auto) (0.11-0.59) K/uL Eos # (Auto) (0-0.5) K/uL Baso # (Auto) (0-0.2) K/uL Immature Gran # (Auto) (0.00-0.02) K/uL VBG pH (7.36-7.41) VBG pCO2 (38-50) mmHg VBG pO2 mmHg VBG HCO3 mmol/L VBG O2 Saturation % VBG Base Excess mEq/L Barometric Pressure mm/Hg Sodium (136-145) mmol/L Potassium (3.5-5.1) mmol/L Chloride (98-107) mmol/L Carbon Dioxide (21-32) mmol/L Anion Gap (3-11) BUN (6-23) mg/dl Creatinine (0.6-1.2) mg/dl Est Cr Clr Drug Dosing ml/min Est GFR ( Amer) ml/min Est GFR (Non-Af Amer) ml/min BUN/Creatinine Ratio (10-20) Glucose (70-99(Fasting)) mg/dl Calcium (8.5-10.1) mg/dl Phosphorus (2.5-4.9) mg/dl Magnesium (1.7-2.4) mg/dl Total Bilirubin (0.2-1.0) mg/dl AST (13-39) U/L ALT (7-52) U/L Alkaline Phosphatase (34-104) U/L Troponin I High Sens 4.9 (0-14) pg/ml Total Protein (6.0-8.3) gm/dl Albumin (3.4-5.0) gm/dl Globulin (2.5-4.0) gm/dl Albumin/Globulin Ratio (0.9-2) Procalcitonin < 0.05 (0-0.5) ng/ml TSH (0.300-4.500) uIu/ml Free T4 (0.61-1.60) ng/dl Ethyl Alcohol mg/dL < 10.0 (<10.0) mg/dl 09/13/21 Range/Units 12:08 WBC (4.8-10.8) K/uL RBC (4.2-5.4) M/uL Hgb (12.0-16.0) g/dL Hct (37-47) % MCV (80-100) fL MCH (25-34) pg MCHC (32-36) g/dL RDW Std Deviation (36.4-46.3) fL RDW Coeff of Angela (11.5-14.5) % Plt Count (130-400) K/uL MPV (7.4-10.4) fL Immature Gran % (Auto) % Neut % (Auto) % Lymph % (Auto) % [place] % (Auto) % Eos % (Auto) % Baso % (Auto) % Neut # (Auto) (1.4-6.5) K/uL Lymph # (Auto) (1.2-3.4) K/uL [place] # (Auto) (0.11-0.59) K/uL Eos # (Auto) (0-0.5) K/uL Baso # (Auto) (0-0.2) K/uL Immature Gran # (Auto) (0.00-0.02) K/uL VBG pH 7.42 H (7.36-7.41) VBG pCO2 38 (38-50) mmHg VBG pO2 81 mmHg VBG HCO3 24 mmol/L VBG O2 Saturation 96.4 % VBG Base Excess -0.2 mEq/L Barometric Pressure 738.6 mm/Hg Sodium (136-145) mmol/L Potassium (3.5-5.1) mmol/L Chloride (98-107) mmol/L Carbon Dioxide (21-32) mmol/L Anion Gap (3-11) BUN (6-23) mg/dl Creatinine (0.6-1.2) mg/dl Est Cr Clr Drug Dosing ml/min Est GFR ( Amer) ml/min Est GFR (Non-Af Amer) ml/min BUN/Creatinine Ratio (10-20) Glucose (70-99(Fasting)) mg/dl Calcium (8.5-10.1) mg/dl Phosphorus (2.5-4.9) mg/dl Magnesium (1.7-2.4) mg/dl Total Bilirubin (0.2-1.0) mg/dl AST (13-39) U/L ALT (7-52) U/L Alkaline Phosphatase (34-104) U/L Troponin I High Sens (0-14) pg/ml Total Protein (6.0-8.3) gm/dl Albumin (3.4-5.0) gm/dl Globulin (2.5-4.0) gm/dl Albumin/Globulin Ratio (0.9-2) Procalcitonin (0-0.5) ng/ml TSH (0.300-4.500) uIu/ml Free T4 (0.61-1.60) ng/dl Ethyl Alcohol mg/dL (<10.0) mg/dl Administered Medications Discontinued Medications Albuterol (Albut/Ipratrop 3mg/0.5mg Neb 3 Ml Vial) 6 ml INH NOW STA Stop: 09/13/21 11:30 Last Admin: 09/13/21 11:58 Dose: 6 ml Documented by: [id number] Chlordiazepoxide HCl (Chlordiazepoxide Hcl 25 Mg Cap) 25 mg PO NOW ONE Stop: 09/13/21 11:30 Last Admin: 09/13/21 11:58 Dose: 25 mg Documented by: [id number] Sodium Chloride (Nss 1000ml) 1,000 mls @ 999 mls/hr IV .Q1H1M NAINA Stop: 09/13/21 10:00 Last Infusion: 09/13/21 10:08 Dose: 0 mls/hr Documented by: [id number] Admin: 09/13/21 09:06 Dose: 999 mls/hr Documented by: [id number] Sodium Chloride (Nss 1000ml) 500 mls @ 999 mls/hr IV .Q31M ONE Stop: 09/13/21 11:08 Last Infusion: 09/13/21 11:14 Dose: 0 mls/hr Documented by: [id number] Admin: 09/13/21 10:42 Dose: 999 mls/hr Documented by: [id number] Multivitamins 10 ml/ Thiamine HCl 100 mg/ Folic Acid 1 mg/Sodium Chloride 1,011.2 mls @ 1,011.2 mls/hr IV .Q1H ONE Stop: 09/13/21 12:28 Last Infusion: 09/13/21 14:46 Dose: 0 mls/hr Documented by: [id number] Admin: 09/13/21 13:44 Dose: 1,011.2 mls/hr Documented by: [id number] Ioversol (Optiray 320 125ml) 110 ml IV ONCE ONE Stop: 09/13/21 12:39 Last Admin: 09/13/21 12:40 Dose: 110 ml Documented by: [id number] Ketorolac Tromethamine (Ketorolac 30 Mg/Ml Vial) 30 mg IV NOW ONE Stop: 09/13/21 14:33 Last Admin: 09/13/21 15:02 Dose: Not Given Documented by: [id number] Ketorolac Tromethamine (Ketorolac 30 Mg/Ml Vial) Confirm Administered Dose 30 mg .ROUTE .STK-MED ONE Stop: 09/13/21 14:37 Last Admin: 09/13/21 14:40 Dose: 30 mg Documented by: [id number] Lorazepam (Lorazepam 2 Mg/1 Ml Vial) 1 mg IV NOW STA Stop: 09/13/21 08:58 Last Admin: 09/13/21 09:06 Dose: 1 mg Documented by: [id number] Methylprednisolone (Methylprednisolone 40 Mg/Ml Vial) 40 mg IV NOW STA Stop: 09/13/21 09:02 Last Admin: 09/13/21 09:06 Dose: 40 mg Documented by: [id number] Morphine Sulfate (Morphine Sulfate 4 Mg/Ml 1 Ml Carp\Vial) 2 mg IV NOW STA Stop: 09/13/21 08:58 Last Admin: 09/13/21 09:06 Dose: Not Given Documented by: [id number] Morphine Sulfate (Morphine Sulfate 2 Mg/Ml Carp) Confirm Administered Dose 2 mg .ROUTE .STK-MED ONE Stop: 09/13/21 09:03 Last Admin: 09/13/21 09:06 Dose: 2 mg Documented by: [id number] Ondansetron HCl (Ondansetron Inj 2 Mg/Ml 2 Ml Vial) 4 mg IV NOW STA Stop: 09/13/21 08:58 Last Admin: 09/13/21 09:06 Dose: 4 mg Documented by: [id number] Imaging Data Radiologist's Impression: Humerus X-Ray 09/13/21 08:57 XR shoulder LT min 2V routine, XR humerus LT 2V CLINICAL HISTORY: Left shoulder and humeral pain. COMPARISON STUDY: None. FINDINGS: No acute fracture or dislocation within the left shoulder or left humerus. No significant soft tissue swelling. Moderate degenerative changes within the acromioclavicular and glenohumeral joints. Punctate calcification at the distal supraspinatus tendon consistent with a calcific tendinitis. IMPRESSION: 1. No fractures identified within the left shoulder or left humerus. 2. Moderate osteoarthritis within the left shoulder. ACT 112: Negative or not required by law. Electronically signed by: Nathaniel Echeverria M.D. 09/13/2021 9:49 AM Shoulder X-Ray 09/13/21 08:57 XR shoulder LT min 2V routine, XR humerus LT 2V CLINICAL HISTORY: Left shoulder and humeral pain. COMPARISON STUDY: None. FINDINGS: No acute fracture or dislocation within the left shoulder or left humerus. No significant soft tissue swelling. Moderate degenerative changes within the acromioclavicular and glenohumeral joints. Punctate calcification at the distal supraspinatus tendon consistent with a calcific tendinitis. IMPRESSION: 1. No fractures identified within the left shoulder or left humerus. 2. Moderate osteoarthritis within the left shoulder. ACT 112: Negative or not required by law. Electronically signed by: Nathaniel Echeverria M.D. 09/13/2021 9:49 AM Chest X-Ray 09/13/21 08:58 XR chest 1V portable HISTORY: 66 years-old Female weakness acute weakness COMPARISON: Chest radiograph and CTA chest 09/03/2020 TECHNIQUE: Portable AP view of the chest FINDINGS: The cardiomediastinal and hilar silhouettes are within normal limits. Unchanged pleural thickening of the right lung apex. Unchanged blunting of the costophrenic angles with subsegmental bibasilar interstitial coarsening. There is no pneumothorax, large pleural effusion or overt pulmonary edema. Degenerative changes of the shoulders and spine. Bilateral shoulder rotator cuff calcific tendinosis. IMPRESSION: No acute process. ACT 112: Negative or not required by law. The above report was generated using voice recognition software. It may contain grammatical, syntax or spelling errors. Electronically signed by: Lan Hillman M.D. 09/13/2021 9:49 AM Chest CTA 09/13/21 11:29 CT ANGIOGRAM OF THE CHEST CLINICAL HISTORY: Tachycardia. Hypoxia. COMPARISON STUDY: Chest CT dated 09/03/2020. Chest x-ray dated 09/13/2021. TECHNIQUE: Following the IV administration of 110 cc of Optiray 320, CT angiogram of the chest was performed from the upper abdomen to the thoracic inlet utilizing the pulmonary embolus protocol. Images are reviewed in the axial, sagittal, and coronal planes. 3-D MIPS images are created and assessed. IV contrast was administered without complication. A dose lowering technique was utilized adhering to the principles of ALARA. The examination is degraded by motion artifact. There is also streak artifact from the left arm which could not be elevated above the chest. CT DOSE: 346.87 mGy.cm FINDINGS: Thyroid: Imaged portions of the thyroid gland are normal in size and attenuation. Thoracic aorta: There is atherosclerotic calcification of the thoracic aorta, which is normal in caliber and demonstrates standard 3-vessel arch anatomy. No dissection is seen. There is moderate stenosis of the left subclavian artery at the thoracic outlet. There is approximately 50% luminal narrowing of the left common carotid artery seen on image #[id number]. Pulmonary vasculature: The pulmonary trunk is normal in caliber. There are no filling defects identified in main, lobar, or segmental pulmonary branches to suggest pulmonary embolus. Heart: The heart is normal in size noting trace pericardial effusion. Lungs and pleural spaces: Advanced and edematous change is again noted. No pleural effusion is identified. There is bibasilar scarring/atelectasis. More focal multifocal airspace opacities are seen at the left lung base. The trachea and central airways are clear. A 5 mm left upper lobe pulmonary nodule image #244 is unchanged. Mediastinum: There is no mediastinal lymphadenopathy. Ruma: Clear. Axillae: There is no axillary lymphadenopathy. Upper abdomen: A 1.4 cm left adrenal nodule is unchanged, as is a 12 mm hypodensity in the left lobe of the liver on image #23. Partially visualized upper abdominal viscera is otherwise grossly unremarkable. Skeletal structures: The skeletal structures are osteopenic. There is mild lumbosacral spondylosis and scoliosis. There is a mild chronic compression deformity of L1. No lytic or blastic bony lesions are seen. Degenerative change is noted in the shoulders. IMPRESSION: 1. There is no evidence of pulmonary embolus in the main, lobar, or segmental pulmonary arteries. 2. Advanced emphysema. 3. Airspace opacities at the left lung base likely represent segmental atelectasis. Correlate clinically for evidence of an infectious/inflammatory pneumonitis. 4. There is a 5 mm left apical pulmonary nodule, which is unchanged from 09/03/2020. Continued follow-up is recommended as per the Fleischner criteria. 5. Additional findings as above. Please refer to below summary of Fleischner criteria recommendations for follow- up of incidental CT nodules (Justyna Baker, Guidelines for management of small pulmonary nodules detected on CT scans: A statement from the Fleischner Society, Radiology 237: [id number].) SOLID NODULES Solitary nodule size: <6 mm * low risk patients: no follow-up needed * high risk patients: optional CT at 12 months Solitary nodule size: 6-8 mm * low risk patients: follow-up at 6-12 months, then consider further follow-up at 18-24 months * high risk patients: initial follow-up CT at 6-12 months and then at 18-24 months if no change Solitary nodule size: >8 mm * either low or high risk patients - consider follow-up CT at 3 months, and/or CT-PET, and/or biopsy Multiple nodules size: <6 mm * low risk patients: no routine follow-up * high risk patients: optional CT at 12 months Multiple nodules size: 6-8 mm * low risk patients: follow-up at 3-6 months, then consider further follow-up at 18-24 months * high risk patients: follow-up at 3-6 months, then at 18-24 months if no change Multiple nodules size: >8 mm * low risk patients: follow-up at 3-6 months, then consider further follow-up at 18-24 months * high risk patients: follow-up at 3-6 months, then at 18-24 months if no change Note: newly detected indeterminate nodule in persons 35 years of age or older. * low risk patients: minimal or absent history of smoking and/or other known risk factors * high risk patients: history of smoking or of other known risk factors (e.g. first degree relative with lung cancer, or exposure to asbestos, radon, uranium) * if a nodule up to 8 mm is partly solid or is ground glass further follow-up i s required after 24 months to exclude possible slow growing adenocarcinoma ([facility]) SUBSOLID NODULES Solitary pure ground-glass nodule * nodule size <6 mm - no CT follow-up required * nodule size >=6 mm - follow-up CT at 6-12 months, then every 2 years until 5 years Solitary part-solid nodule * nodule size <6 mm - no CT follow-up required * nodule size >=6 mm - follow-up CT at 3-6 months. If unchanged, and solid component remains <6 mm, then annual follow-up for 5 years Multiple subsolid nodules * nodule size <6 mm - follow-up CT at 3-6 months, consider further follow-up at 2 and 4 years if stable * nodule size >=6 mm - follow-up CT at 3-6 months, subsequent management based on the most suspicious nodule(s) ACT 112: Negative or not required by law. Electronically signed by: Tod Mora M.D. 09/13/2021 1:13 PM Discharge Plan Visit Data Chief Complaint: Arm Pain Stated Complaint: PAIN IN LEFT ARM ED Provider: Aramis Husain Discharge Problem: Hypoxemia, Alcohol dependence, COPD (chronic obstructive pulmonary disease) Patient Disposition: Admitted As Inpatient Discharge Instructions Interventions: ED Discharge Assessment Last Done: 09/13/21 15:42
[2021-09-13] MEDS ORDERED: MoRPHine SULFATE 4 MG/ML 1 ML CARP\\VIAL IV STA (08:57)
[2021-09-13] MEDS ORDERED: LORazepam 2 MG/1 ML VIAL IV STA (08:57)
[2021-09-13] MEDS ORDERED: ONDANSETRON INJ 2 MG/ML 2 ML VIAL IV STA (08:57)
[2021-09-13] MEDS ORDERED: SODIUM CHLORIDE 0.9% 1000ML 1,000 ML IV SCH (09:00)
[2021-09-13] MEDS ORDERED: MoRPHine SULFATE 2 MG/ML CARP ONE (09:02)
[2021-09-13 09:27] LABS: Basophils # (auto) 0.01 K/uL (0-0.2); Basophils % (auto) 0.1 %; Eosinophils # (auto) 0.13 K/uL (0-0.5); Eosinophils % (auto) 0.8 %; Hematocrit (blood only) 42.9 % (37-47); Hemoglobin 14.3 g/dL (12.0-16.0); Immature Granulocytes # (auto) 0.05 K/uL (0.00-0.02); Immature Granulocytes % (auto) 0.3 %; Lymphocytes # (auto) 2.23 K/uL (1.2-3.4); Lymphocytes % (auto) 14.6 %; Mean Corpuscular Hemoglobin 30.6 pg (25-34); Mean Corpuscular Hgb Conc 33.3 g/dL (32-36); Mean Corpuscular Volume 91.7 fL (80-100); Mean Platelet Volume 10.6 fL (7.4-10.4); Monocytes # (auto) 1.23 K/uL (0.11-0.59); Neutrophils # (auto) 11.66 K/uL (1.4-6.5); Neutrophils % (auto) 76.2 %; Platelet Count 348 K/uL (130-400); RDW Coefficient of Variation 13.9 % (11.5-14.5); RDW Standard Deviation 46.6 fL (36.4-46.3); Red Blood Count 4.68 M/uL (4.2-5.4); White Blood Count 15.31 K/uL (4.8-10.8)
[2021-09-13 09:44] LABS: Troponin I High Sensitivity 6.2 pg/ml (0-14)
--- NOTE | 2021-09-13 09:50 | XRay Report ---
XR chest 1V portable HISTORY: 66 years-old Female weakness acute weakness COMPARISON: Chest radiograph and CTA chest 09/03/2020 TECHNIQUE: Portable AP view of the chest FINDINGS: The cardiomediastinal and hilar silhouettes are within normal limits. Unchanged pleural thickening of the right lung apex. Unchanged blunting of the costophrenic angles with subsegmental bibasilar inter stitial coarsening. There is no pneumothorax, large pleural effusion or overt pulmonary edema. Degene rative changes of the shoulders and spine. Bilateral shoulder rotator cuff calcific tendinosis. IMPRESSION: No acute process. ACT 112: Negative or not required by law. The above report was generated using voice recognition software. It may contain grammatical, syntax o r spelling errors. Electronically signed by: Lan Hillman M.D. 09/13/2021 9:49 AM
--- NOTE | 2021-09-13 09:50 | XRay Report ---
XR shoulder LT min 2V routine, XR humerus LT 2V CLINICAL HISTORY: Left shoulder and humeral pain. COMPARISON STUDY: None. FINDINGS: No acute fracture or dislocation within the left shoulder or left humerus. No significant s oft tissue swelling. Moderate degenerative changes within the acromioclavicular and glenohumeral join ts. Punctate calcification at the distal supraspinatus tendon consistent with a calcific tendinitis. IMPRESSION: 1. No fractures identified within the left shoulder or left humerus. 2. Moderate osteoarthritis within the left shoulder. ACT 112: Negative or not required by law. Electronically signed by: Nathaniel Echeverria M.D. 09/13/2021 9:49 AM
[2021-09-13 09:52] LABS: Thyroid Stimulating Hormone 11.178 uIu/ml (0.300-4.500)
[2021-09-13 10:01] LABS: Albumin Globulin Ratio 1.5 (0.9-2); Albumin Level 4.4 gm/dl (3.4-5.0); Bilirubin,Total 0.9 mg/dl (0.2-1.0); Calcium 9.5 mg/dl (8.5-10.1); Creatinine Clr Calc Pharmacy 74.6 ml/min; Est GFR (African American) 102.6 ml/min; Est GFR (Non-African American) 88.5 ml/min; Globulin 2.9 gm/dl (2.5-4.0); Magnesium 1.9 mg/dl (1.7-2.4); Phosphorus 3.6 mg/dl (2.5-4.9); Potassium 3.9 mmol/L (3.5-5.1); Total Protein 7.3 gm/dl (6.0-8.3)
[2021-09-13 10:26] LABS: T4 Free Thyroxine 0.79 ng/dl (0.61-1.60)
[2021-09-13] MEDS ORDERED: SODIUM CHLORIDE 0.9% 1000ML 500 ML IV ONE (10:38)
[2021-09-13] MEDS ORDERED: ALBUT/IPRATROP 3MG/0.5MG NEB 3 ML VIAL INH STA (11:29)
[2021-09-13] MEDS ORDERED: MULTI-VITAMIN INFUSION 10 ML, THIAMINE HCL 100 MG, FOLIC ACID 1 MG in SODIUM CHLORIDE 0... IV ONE (11:29)
[2021-09-13] MEDS ORDERED: chlordiazePOXIDE HCl 25 MG CAP PO ONE (11:29)
[2021-09-13 12:18] LABS: Base Excess VBG -0.2 mEq/L; Oxygen Saturation VBG 96.4 %; pH VBG 7.42 (7.36-7.41)
[2021-09-13] MEDS ORDERED: OPTIRAY 320 125ml IV ONE (12:38)
--- NOTE | 2021-09-13 13:14 | CT Scan Report ---
CT ANGIOGRAM OF THE CHEST CLINICAL HISTORY: Tachycardia. Hypoxia. COMPARISON STUDY: Chest CT dated 09/03/2020. Chest x-ray dated 09/13/2021. TECHNIQUE: Following the IV administration of 110 cc of Optiray 320, CT angiogram of the chest was pe rformed from the upper abdomen to the thoracic inlet utilizing the pulmonary embolus protocol. Images are reviewed in the axial, sagittal, and coronal planes. 3-D MIPS images are created and assessed. I V contrast was administered without complication. A dose lowering technique was utilized adhering to the principles of ALARA. The examination is degraded by motion artifact. There is also streak artifa ct from the left arm which could not be elevated above the chest. CT DOSE: 346.87 mGy.cm FINDINGS: Thyroid: Imaged portions of the thyroid gland are normal in size and attenuation. Thoracic aorta: There is atherosclerotic calcification of the thoracic aorta, which is normal in hedy roberta and demonstrates standard 3-vessel arch anatomy. No dissection is seen. There is moderate stenosi s of the left subclavian artery at the thoracic outlet. There is approximately 50% luminal narrowing of the left common carotid artery seen on image #288. Pulmonary vasculature: The pulmonary trunk is normal in caliber. There are no filling defects identif ied in main, lobar, or segmental pulmonary branches to suggest pulmonary embolus. Heart: The heart is normal in size noting trace pericardial effusion. Lungs and pleural spaces: Advanced and edematous change is again noted. No pleural effusion is identi fied. There is bibasilar scarring/atelectasis. More focal multifocal airspace opacities are seen at t he left lung base. The trachea and central airways are clear. A 5 mm left upper lobe pulmonary nodule image #244 is unchanged. Mediastinum: There is no mediastinal lymphadenopathy. Ruma: Clear. Axillae: There is no axillary lymphadenopathy. Upper abdomen: A 1.4 cm left adrenal nodule is unchanged, as is a 12 mm hypodensity in the left lobe of the liver on image #23. Partially visualized upper abdominal viscera is otherwise grossly unremark able. Skeletal structures: The skeletal structures are osteopenic. There is mild lumbosacral spondylosis an d scoliosis. There is a mild chronic compression deformity of L1. No lytic or blastic bony lesions ar e seen. Degenerative change is noted in the shoulders. IMPRESSION: 1. There is no evidence of pulmonary embolus in the main, lobar, or segmental pulmonary arteries. 2. Advanced emphysema. 3. Airspace opacities at the left lung base likely represent segmental atelectasis. Correlate clinica lly for evidence of an infectious/inflammatory pneumonitis. 4. There is a 5 mm left apical pulmonary nodule, which is unchanged from 09/03/2020. Continued follow-u p is recommended as per the Fleischner criteria. 5. Additional findings as above. Please refer to below summary of Fleischner criteria recommendations for follow-up of incidental CT n odules (Justyna Baker, Guidelines for management of small pulmonary nodules detected on CT scans: A sta tement from the Fleischner Society, Radiology 237: [phone].) SOLID NODULES Solitary nodule size: <6 mm * low risk patients: no follow-up needed * high risk patients: optional CT at 12 months Solitary nodule size: 6-8 mm * low risk patients: follow-up at 6-12 months, then consider further follow-up at 18-24 months * high risk patients: initial follow-up CT at 6-12 months and then at 18-24 months if no change Solitary nodule size: >8 mm * either low or high risk patients - consider follow-up CT at 3 months, and/or CT-PET, and/or biopsy Multiple nodules size: <6 mm * low risk patients: no routine follow-up * high risk patients: optional CT at 12 months Multiple nodules size: 6-8 mm * low risk patients: follow-up at 3-6 months, then consider further follow-up at 18-24 months * high risk patients: follow-up at 3-6 months, then at 18-24 months if no change Multiple nodules size: >8 mm * low risk patients: follow-up at 3-6 months, then consider further follow-up at 18-24 months * high risk patients: follow-up at 3-6 months, then at 18-24 months if no change Note: newly detected indeterminate nodule in persons 35 years of age or older. * low risk patients: minimal or absent history of smoking and/or other known risk factors * high risk patients: history of smoking or of other known risk factors (e.g. first degree relative with lung cancer, or exposure to asbestos, radon, uranium) * if a nodule up to 8 mm is partly solid or is ground glass further follow-up is required after 24 m onths to exclude possible slow growing adenocarcinoma ([facility]) SUBSOLID NODULES Solitary pure ground-glass nodule * nodule size <6 mm - no CT follow-up required * nodule size >=6 mm - follow-up CT at 6-12 months, then every 2 years until 5 years Solitary part-solid nodule * nodule size <6 mm - no CT follow-up required * nodule size >=6 mm - follow-up CT at 3-6 months. If unchanged, and solid component remains <6 mm, then annual follow-up for 5 years Multiple subsolid nodules * nodule size <6 mm - follow-up CT at 3-6 months, consider further follow-up at 2 and 4 years if sta ble * nodule size >=6 mm - follow-up CT at 3-6 months, subsequent management based on the most suspiciou s nodule(s) ACT 112: Negative or not required by law. Electronically signed by: Tod Mora M.D. 09/13/2021 1:13 PM
--- NOTE | 2021-09-13 14:07 | History & Physical Report ---
Date of Service September 13, 2021 Assessment & Plan (1) Left arm pain: (2) Cervical spine disease: (3) Hypoxia: (4) COPD (chronic obstructive pulmonary disease): (5) Hypertension: (6) Alcohol dependence: Plan: This is a 66-year-old female who has significant past medical history of HTN, HLD, COPD, SANDRA, former tobacco abuse, alcohol dependence, left apical pulmonary nodule, hepatic steatosis, history of spontaneous pneumothorax requiring thoracotomy who presents to ED secondary to left upper extremity pain since 6 PM last evening. Acute nontraumatic left arm pain Known cervical spine disease Cervical spine radiculopathy Admit to telemetry for further monitoring Initial concern for admission with hypoxia due to narcotic administration as well as left upper extremity pain with heart disease risk factors After further interview, questioning and physical exam does appear that patient is experiencing left sided cervical radicular symptoms Her serial EKG x2 and troponins has been negative thus far, I do not feel this is cardiac in nature but will cycle trops for completeness She continues to have intermittent sharp and burning pain to left shoulder with radiation to left elbow and numbness and tingling to left fingers [address] Rodriguez for cervical spine injections Most recent MRI on 08/14/2020 revealed degenerative spondylosis of mid cervical spine with moderate thecal sac narrowing at C5-6 and severe foraminal stenosis bilaterally at C3-4, on the left at C4-5 and bilaterally at C5-6 Shoulder x-ray and left humerus x-ray are negative for fracture but did reveal shoulder osteoarthritis Obtain a neck x-ray, but will likely need to pursue cervical spine MRI Consider consulting orthopedic spine depending on imaging Also possibility of L supraspinatus bursitis Will control pain, give 30 mg IV Toradol x1 now Scheduled Tylenol, IV Toradol 15 mg as needed for moderate pain and oral oxycodone 5 mg every 6 hours as needed for severe pain Stool softener consult PT/OT alternate heat/ice per pt preference Hypoxia COPD Likely in setting of narcotic administration We will try to avoid IV narcotic medications due to underlying COPD No acute exacerbation Continue Trelegy, as needed albuterol HTN bp elevated likely in setting of pain continue losartan HLD continue statin Hypothyroidism elevated tsh, normal t4 continue levothyroxine recommend repeat TSH/t4 as OP in 4 weeks Known ETOH dependence 4-5light beers daily, last 4pm last evening pt states she has gone 2 months w/o ETOH and no issue w/ withdrawal AWSS protocol, prn IV ativan daily thiamine, folic acid Former tobacco abuse quit 1 year ago DVT ppx: SQ Lovenox Dispo: tele FULL CODE PCP: Becky Pt was seen and examined in collaboration with Dr. Chen, please see addendum History of Present Illness Chief Complaint: LUE pain since 6:00 pm last evening. Primary Care Provider: Liliane Pena DO This is a 66-year-old female who has significant past medical history of HTN, HLD, COPD, SANDRA, former tobacco abuse, alcohol dependence, left apical pulmonary nodule, hepatic steatosis, history of spontaneous pneumothorax requiring thoracotomy who presents to ED secondary to left upper extremity pain since 6 PM last evening. She said the pain came out of nowhere. Pain is located in her left shoulder region and radiates to her left elbow. She did not get any sleep last evening. She also complains of numbness and tingling in her left hand and fingers 1 through 3. She denies any associated weakness but does have difficulty lifting her arm beyond 90 degrees. She denies any recent trauma or injury. She states that she is disabled and therefore she does not lift anything significantly heavy. She is disabled secondary to chronic problems in her low back. She denies any similar pain before. She describes it as a sharp stabbing pain that, "grabs her." Pain when it comes on as a 10 out of 10. She describes it as burning. Again she states it radiates to her left elbow. She denies any associated shortness of breath, palpitations, nausea or diaphoresis. She did try [id number] ibuprofen at home without any significant relief. Of significance that she does have known cervical spine disease in which she follows Dr. Rodriguez for spinal injections. Her most recent MRI in August 2020 r evealed degenerative spondylosis of the mid cervical spine with moderate thecal sac narrowing at C5-6 and severe foraminal stenosis bilaterally at C3-4 on the left at C3-4 and bilaterally at C5-6. Her last injection was approximately 1 month ago. Typically she has pain at the base of her neck but denies any pain radiating to her extremities. She further denies any numbness and tingling in regards to her chronic neck pain. She does admit to frequent bouts of pneumonia this past year. Her most recent episode was in August when she finished a course of antibiotics and Medrol Dosepak around 20 August. Otherwise she has been in good health and denies any fever, chills, sweats, lightheadedness, syncope, chest pain, shortness breath at rest, palpitations, hemoptysis, cough, nausea, vomiting, abdominal pain, dysuria, increased urgency or frequency with urination, melena or hematochezia. Her appetite is otherwise been normal. She does have history of tobacco abuse which she quit a little over a year ago. She does drink 4-5 light beers daily. Her last beer was around 4 PM last evening. She has gone periods of time without alcohol including when she returned home from [facility] this past winter and her and her abstained for 2 months without any issues with withdrawal. She does have a prior history of smoking marijuana her last use was in February. She does have known COPD for which she is controlled on Trelegy. She states that she uses her rescue inhaler approximately 2 times a week but has not needed it recently. She does have chronic dyspnea on exertion but feels this is unchanged. In ED patient made hemodynamically stable although she was tachycardic. Initial lab work revealed a mild leukocytosis of 15 K, CBC and CMP otherwise generally unremarkable except for mild hyperglycemia at 152. Her troponin x2 was negative. EKG revealed sinus tachycardia but did not reveal any ST or T wave changes. Her alcohol level was negative. In ED patient did receive IV Ativan along with IV morphine. Initially there was concern that maybe tachycardia was secondary to withdrawal and that is why the Ativan and chlordiazepoxide was administered. She was also ministered IV morphine for pain. When pain arrived to hospital she was on room air; however after given IV morphine she did desaturate requiring 2 L of oxygen to maintain normal saturations. She also did desaturate on ambulatory trial. Shoulder x-ray and humerus x-ray did not reveal any acute fracture but did reveal moderate shoulder arthritis. Chest x-ray is negative for acute disease. Chest CT was negative for PE but did reveal a stable apical left upper lobe pulmonary nodule. Allergies Allergy/AdvReac Type Severity Reaction Status Date / Time No Known Allergies Allergy Verified 09/13/21 09:45 Home Medications Medication Instructions Recorded Confirmed Type atorvastatin 10 mg tablet 10 mg PO QAM 07/06/20 09/13/21 History levothyroxine 75 mcg tablet 75 mcg PO QAM 07/06/20 09/13/21 History pantoprazole 20 mg tablet,delayed 20 mg PO DAILY 07/06/20 09/13/21 History release albuterol sulfate 90 mcg/actuation 1 inh INHALATION Q6H PRN #8.5 g 07/08/20 09/13/21 Rx aerosol inhaler acetaminophen 325 mg tablet 325 mg PO Q6H PRN 09/13/21 09/13/21 History albuterol sulfate 90 mcg/actuation 2 puff INHALATION Q6H PRN 09/13/21 09/13/21 History aerosol inhaler (Ventolin HFA) cyanocobalamin (vitamin B-12) 100 100 mcg PO QAM 09/13/21 09/13/21 History mcg tablet diclofenac sodium 1 % gel topical 2 g TOPICAL QID PRN 09/13/21 09/13/21 History kit fluticasone fur. 100 mcg-umeclid 1 inh INHALATION QAM 09/13/21 09/13/21 History 62.5 mcg-vilant 25 mcg inhalat.powder (Trelegy Ellipta) ketoconazole 2 % shampoo 2 ea TOPICAL 3XWK 09/13/21 09/13/21 History losartan 25 mg tablet 25 mg PO QAM 09/13/21 09/13/21 History Past Med/Surg History Medical History (Updated 09/13/21 @ 14:55 by Elisha Tinoco PA-C) Alcohol dependence COPD (chronic obstructive pulmonary disease) GERD (gastroesophageal reflux disease) Hepatic steatosis HLD (hyperlipidemia) Hypertension Hypothyroidism SANDRA (obstructive sleep apnea) Tobacco abuse disorder Surgical History History of colonoscopy History of esophagogastroduodenoscopy (EGD) History of thoracotomy Family History Mother Pancreatic cancer Father , fatal [place] @ 42 Myocardial infarction Social History Smoking Status: Never smoker Cigarettes Per Day: 10; Second Hand Exposure: No; Hx Alcohol Use: Yes Alcohol type: beer Hx Substance Use: Yes Last Used Substance: Hours (ago) Preferred Language: Northern Irish Communication Ability: Effective Senior Ssis Developer Required: No Beliefs That Will Affect Care: None marital status: Current Living Situation: Spouse Feels Safe at Home: Yes Assistive Devices: Glasses Review of Systems Review of Systems: All systems reviewed & are unremarkable except as noted in HPI & below Physical Exam Physical Exam: Constitutional: WD/WN, vitals as above, NAD, sitting up in bed, pleasant, conversing easily Head: Normocephalic, Atraumatic Eyes: PERRL, conjunctivae normal, anicteric sclerae ENMT: external ear and nose normal, oropharynx normal Neck: trachea midline, no thyromegaly normal visual inspection Respiratory: normal respiratory effort, diminished breath sounds at bases, Lungs clear to auscultation, no wheeze, rales, rhonchi. Normal insp/exp effort, no accessory muscle use Cardiovascular: RRR, no murmur, no edema Vessels: no JVD or carotid bruit Chest: normal inspection of chest Abdomen: normal bowel sounds, soft, nontender, no hepatosplenomegaly Musculoskeletal: no cyanosis or clubbing, AROM x 4, difficulty with L lateral arm raise and abd to L shoulder, pain to palpation to cervical vertebral processes along with paraspinal musculature, intermittent, "jabbing," pains witnessed during exam Skin: no rashes, warm and dry normal turgor Neurologic: PERRL, EOMI, accommodation nl, no face palsy, no dysarthria CN's II-XI intact bilaterally and moves all extremities Psychiatric: A+Ox3, euthymic affect Lymphatic: no cervical or axillary lymphadenopathy : deferred Results & Data Results & Data ([facility]) Vital Signs (Past 12 Hours) Vital Signs Temp Pulse Resp BP Pulse Ox 09/13/21 10:48 83 L 09/13/21 10:30 99 H 18 151/99 H 93 09/13/21 10:00 101 H 18 132/90 09/13/21 09:30 109 H 14 154/101 H 100 09/13/21 09:26 89 L 09/13/21 09:00 130 H 14 115/79 09/13/21 08:58 94 09/13/21 08:54 36.8 C 138 H 20 142/97 H 96 Diagnostic Findings Medication List Discontinued Medications Albuterol (Albut/Ipratrop 3mg/0.5mg Neb 3 Ml Vial) 6 ml INH NOW STA Stop: 09/13/21 11:30 Last Admin: 09/13/21 11:58 Dose: 6 ml Documented by: [id number] Chlordiazepoxide HCl (Chlordiazepoxide Hcl 25 Mg Cap) 25 mg PO NOW ONE Stop: 09/13/21 11:30 Last Admin: 09/13/21 11:58 Dose: 25 mg Documented by: [id number] Sodium Chloride (Nss 1000ml) 1,000 mls @ 999 mls/hr IV .Q1H1M NAINA Stop: 09/13/21 10:00 Last Infusion: 09/13/21 10:08 Dose: 0 mls/hr Documented by: [id number] Admin: 09/13/21 09:06 Dose: 999 mls/hr Documented by: [id number] Sodium Chloride (Nss 1000ml) 500 mls @ 999 mls/hr IV .Q31M ONE Stop: 09/13/21 11:08 Last Infusion: 09/13/21 11:14 Dose: 0 mls/hr Documented by: [id number] Admin: 09/13/21 10:42 Dose: 999 mls/hr Documented by: [id number] Multivitamins 10 ml/ Thiamine HCl 100 mg/ Folic Acid 1 mg/Sodium Chloride 1,011.2 mls @ 1,011.2 mls/hr IV .Q1H ONE Stop: 09/13/21 12:28 Last Admin: 09/13/21 13:44 Dose: 1,011.2 mls/hr Documented by: [id number] Ioversol (Optiray 320 125ml) 110 ml IV ONCE ONE Stop: 09/13/21 12:39 Last Admin: 09/13/21 12:40 Dose: 110 ml Documented by: [id number] Lorazepam (Lorazepam 2 Mg/1 Ml Vial) 1 mg IV NOW STA Stop: 09/13/21 08:58 Last Admin: 09/13/21 09:06 Dose: 1 mg Documented by: [id number] Methylprednisolone (Methylprednisolone 40 Mg/Ml Vial) 40 mg IV NOW STA Stop: 09/13/21 09:02 Last Admin: 09/13/21 09:06 Dose: 40 mg Documented by: [id number] Morphine Sulfate (Morphine Sulfate 4 Mg/Ml 1 Ml Carp\\Vial) 2 mg IV NOW STA Stop: 09/13/21 08:58 Last Admin: 09/13/21 09:06 Dose: Not Given Documented by: [id number] Morphine Sulfate (Morphine Sulfate 2 Mg/Ml Carp) Confirm Administered Dose 2 mg .ROUTE .STK-MED ONE Stop: 09/13/21 09:03 Last Admin: 09/13/21 09:06 Dose: 2 mg Documented by: [id number] Ondansetron HCl (Ondansetron Inj 2 Mg/Ml 2 Ml Vial) 4 mg IV NOW STA Stop: 09/13/21 08:58 Last Admin: 09/13/21 09:06 Dose: 4 mg Documented by: [id number] Medications Administered Medication List Discontinued Medications Albuterol (Albut/Ipratrop 3mg/0.5mg Neb 3 Ml Vial) 6 ml INH NOW STA Stop: 09/13/21 11:30 Last Admin: 09/13/21 11:58 Dose: 6 ml Documented by: [id number] Chlordiazepoxide HCl (Chlordiazepoxide Hcl 25 Mg Cap) 25 mg PO NOW ONE Stop: 09/13/21 11:30 Last Admin: 09/13/21 11:58 Dose: 25 mg Documented by: [id number] Sodium Chloride (Nss 1000ml) 1,000 mls @ 999 mls/hr IV .Q1H1M NAINA Stop: 09/13/21 10:00 Last Infusion: 09/13/21 10:08 Dose: 0 mls/hr Documented by: [id number] Admin: 09/13/21 09:06 Dose: 999 mls/hr Documented by: [id number] Sodium Chloride (Nss 1000ml) 500 mls @ 999 mls/hr IV .Q31M ONE Stop: 09/13/21 11:08 Last Infusion: 09/13/21 11:14 Dose: 0 mls/hr Documented by: [id number] Admin: 09/13/21 10:42 Dose: 999 mls/hr Documented by: [id number] Multivitamins 10 ml/ Thiamine HCl 100 mg/ Folic Acid 1 mg/Sodium Chloride 1,011.2 mls @ 1,011.2 mls/hr IV .Q1H ONE Stop: 09/13/21 12:28 Last Admin: 09/13/21 13:44 Dose: 1,011.2 mls/hr Documented by: [id number] Ioversol (Optiray 320 125ml) 110 ml IV ONCE ONE Stop: 09/13/21 12:39 Last Admin: 09/13/21 12:40 Dose: 110 ml Documented by: [id number] Lorazepam (Lorazepam 2 Mg/1 Ml Vial) 1 mg IV NOW STA Stop: 09/13/21 08:58 Last Admin: 09/13/21 09:06 Dose: 1 mg Documented by: [id number] Methylprednisolone (Methylprednisolone 40 Mg/Ml Vial) 40 mg IV NOW STA Stop: 09/13/21 09:02 Last Admin: 09/13/21 09:06 Dose: 40 mg Documented by: [id number] Morphine Sulfate (Morphine Sulfate 4 Mg/Ml 1 Ml Carp\\Vial) 2 mg IV NOW STA Stop: 09/13/21 08:58 Last Admin: 09/13/21 09:06 Dose: Not Given Documented by: [id number] Morphine Sulfate (Morphine Sulfate 2 Mg/Ml Carp) Confirm Administered Dose 2 mg .ROUTE .STK-MED ONE Stop: 09/13/21 09:03 Last Admin: 09/13/21 09:06 Dose: 2 mg Documented by: [id number] Ondansetron HCl (Ondansetron Inj 2 Mg/Ml 2 Ml Vial) 4 mg IV NOW STA Stop: 09/13/21 08:58 Last Admin: 09/13/21 09:06 Dose: 4 mg Documented by: [id number] ECG Rate (beats per minute): 125 Rhythm: sinus tachycardia Additional Comments: qtc 425ms COVID-19 Results Results COVID-19 Adm Lab Results: RBC 4.68 M/uL (4.2-5.4) 09/13/21 WBC 15.31 K/uL (4.8-10.8) H 09/13/21 Hgb 14.3 g/dL (12.0-16.0) 09/13/21 Hct 42.9 % (37-47) 09/13/21 Plt Count 348 K/uL (130-400) 09/13/21 Neutrophils (%) (Auto) 76.2 % 09/13/21 Lymphocytes (%) (Auto) 14.6 % 09/13/21 Monocytes # (Auto) 1.23 K/uL (0.11-0.59) H 09/13/21 Eosinophils # (Auto) 0.13 K/uL (0-0.5) 09/13/21 Immature Granulocyte % (Auto) 0.3 % 09/13/21 Neutrophils # (Auto) 11.66 K/uL (1.4-6.5) H 09/13/21 Lymphocytes # (Auto) 2.23 K/uL (1.2-3.4) 09/13/21 Monocytes # (Auto) 1.23 K/uL (0.11-0.59) H 09/13/21 Eosinophils # (Auto) 0.13 K/uL (0-0.5) 09/13/21 Basophils # (Auto) 0.01 K/uL (0-0.2) 09/13/21 Immature Granulocyte # (Auto) 0.05 K/uL (0.00-0.02) H 09/13/21 Na 136 mmol/L (136-145) 09/13/21 K 3.9 mmol/L (3.5-5.1) 09/13/21 Cl 100 mmol/L (98-107) 09/13/21 CO2 24 mmol/L (21-32) 09/13/21 Anion Gap 12 (3-11) H 09/13/21 BUN 18 mg/dl (6-23) 09/13/21 Creatinine 0.72 mg/dl (0.6-1.2) 09/13/21 BUN/Creatinine Ratio 25.0 (10-20) H 09/13/21 Glucose Level 152 mg/dl (70-99(Fasting)) H 09/13/21 Ca 9.5 mg/dl (8.5-10.1) 09/13/21 Phosphorus Level 3.6 mg/dl (2.5-4.9) 09/13/21 Total Bilirubin 0.9 mg/dl (0.2-1.0) 09/13/21 AST/SGOT 21 U/L (13-39) 09/13/21 ALT/SGPT 37 U/L (7-52) 09/13/21 Alkaline Phosphatase 70 U/L (34-104) 09/13/21 Total Protein 7.3 gm/dl (6.0-8.3) 09/13/21 Albumin 4.4 gm/dl (3.4-5.0) 09/13/21 Globulin 2.9 gm/dl (2.5-4.0) 09/13/21 Albumin/Globulin Ratio 1.5 (0.9-2) 09/13/21 Procalcitonin < 0.05 ng/ml (0-0.5) 09/13/21 SARS-CoV-2, RNA, NAAT NEGATIVE (NEGATIVE) 09/13/21 Chest X-Ray 09/13/21 Code Status & VTE Plan Code Status Full Code VTE Prophylaxis Plan VTE Prophylaxis will be ordered: Yes Supervising Physician Co-Signing Physician Notes Patient was interviewed and examined independently by me. I reviewed the chart and discussed the case with Elisha DURANT and agree with her documentation above. In summary, this is a 66 year old female with history of chronic back pain, cervical spine disease and s/p steroid injection x3 last one being about a year ago presented to the ED with sudden onset severe sharp left upper extremity pain in her left 4th and 5th fingers and progressing up to the hand, forearm and left shoulder. Also had some left hand numbness. Started at 6 pm and had severe pain 10/10 all night. No precipitating factors, no trauma. No aggravating or relieving factors. Also has some left neck pain. However, this pain episode feels different from her prior cervical spine disease episodes. No chest pain, shortness of breath. Denies history of heart disease. Takes motrin 400 mg bid regularly at home but it did not help with this pain. Came to the ED for evaluation. Given iv morphine and solumedrol in ED, had episode of hypoxia with morphine. Also given librium in ED as she drinks 4-5 beers daily and there was concern about withdrawal given her tachycardia. Given toradol x1 in ED and she was comfortable during my encounter. States pain never went away but comfortable now from the pain medication. Patient had tender spots during palpation of LUE- felt sharp. Also had pain with ROM activity of LUE with trying to bring hand above the level of shoulder. AAOx3, chest with fair breath sounds without wh eezes, tachycardic but normal heart sounds, abdomen benign, no edema. Agree with repeat MRI C spine to evaluate for her cervical spine disease. If abnormal, consult ortho. If unremarkable, consider MRI left shoulder. Continue pain management- toradol, oxy prn, heat pad, lidocaine patch, voltaren gel. Initiate low dose gabapentin. Might need trial of steroid if persistent severe pain. Doubt this is referred cardiac pain. Also low concern for withdrawal per history. COPD stable and not in exacerbation, continue inhalers. Rest per the note above. (1) Alcohol dependence Substance use status: unspecified alcohol-induced disorder Qualified Code(s): F10.29 - Alcohol dependence with unspecified alcohol-induced disorder
[2021-09-13] MEDS ORDERED: KETOROLAC 30 MG/ML VIAL IV ONE (14:32)
[2021-09-13] MEDS ORDERED: KETOROLAC 30 MG/ML VIAL ONE (14:36)
[2021-09-13] MEDS ORDERED: PANTOprazole 40 MG TAB PO SCH (16:00)
[2021-09-13] MEDS ORDERED: LORazepam 2 MG/1 ML VIAL IV PRN ×3 (16:04)
[2021-09-13] MEDS ORDERED: ONDANSETRON INJ 2 MG/ML 2 ML VIAL IV PRN (16:04)
[2021-09-13] MEDS ORDERED: ATIVAN IV ALCOHOL WITHDRAWL IV PRN (16:04)
[2021-09-13] MEDS ORDERED: POLYETHYLENE (MIRALAX) 17 GM PACK PO PRN (16:04)
[2021-09-13] MEDS ORDERED: ALUMINUM/MAGNESIUM SUSP 30 ML UDC PO PRN (16:04)
[2021-09-13] MEDS ORDERED: ALBUTEROL HFA 8 GM INHALER INH PRN (16:04)
[2021-09-13] MEDS ORDERED: ACETAMINOPHEN 325 MG TAB PO PRN (16:04)
[2021-09-13] MEDS ORDERED: MAGNESIUM HYDROXIDE SUSP 30 ML UDC PO PRN (16:04)
[2021-09-13] MEDS ORDERED: DICLOFENAC SOD 1% GEL 100 GM TUBE EXT SCH (17:00)
[2021-09-13] MEDS: oxyCODONE HCL IR 5 MG TAB (IMMEDIATE RELEASE) PO PRN (17:26)
[2021-09-13] MEDS: ACETAMINOPHEN 325 MG TAB PO SCH ×2 (17:26→20:30)
[2021-09-13] MEDS: THIAMINE HCL 100 MG TAB PO SCH (17:27)
[2021-09-13] MEDS: FOLIC ACID 1 MG TAB PO SCH (17:27)
[2021-09-13] MEDS: LIDOCAINE 5% 1 PATCH TD SCH (17:29)
[2021-09-13] MEDS: DICLOFENAC SOD 1% GEL 100 GM TUBE EXT SCH ×2 (17:58→20:28)
[2021-09-13] MEDS ORDERED: KETOROLAC TROMETHAMINE 15 MG/ML VIAL IV PRN (20:00)
[2021-09-13] MEDS: DOCUSATE SODIUM/SENNA 50/8.6MG TAB PO SCH (20:28)
[2021-09-13] MEDS: GABAPENTIN 100 MG CAP PO SCH (20:28)
[2021-09-13] MEDS: ENOXAPARIN INJ 40 MG/0.4 ML SYR SQ SCH (22:01)
[2021-09-14] MEDS: LEVOTHYROXINE SODIUM 75 MCG TABLET PO SCH (06:04)
[2021-09-14 06:24] LABS: Eosinophils # (auto) 0.01 K/uL (0-0.5); Eosinophils % (auto) 0.1 %; Hematocrit (blood only) 36.7 % (37-47); Hemoglobin 11.8 g/dL (12.0-16.0); Immature Granulocytes # (auto) 0.02 K/uL (0.00-0.02); Immature Granulocytes % (auto) 0.2 %; Lymphocytes # (auto) 1.49 K/uL (1.2-3.4); Lymphocytes % (auto) 15.1 %; Mean Corpuscular Hemoglobin 29.7 pg (25-34); Mean Corpuscular Hgb Conc 32.2 g/dL (32-36); Mean Corpuscular Volume 92.4 fL (80-100); Mean Platelet Volume 10.4 fL (7.4-10.4); Monocytes # (auto) 0.67 K/uL (0.11-0.59); Monocytes % (auto) 6.8 %; Neutrophils # (auto) 7.68 K/uL (1.4-6.5); Neutrophils % (auto) 77.8 %; Platelet Count 275 K/uL (130-400); RDW Coefficient of Variation 13.8 % (11.5-14.5); RDW Standard Deviation 46.5 fL (36.4-46.3); Red Blood Count 3.97 M/uL (4.2-5.4); White Blood Count 9.87 K/uL (4.8-10.8)
[2021-09-14 06:50] LABS: Albumin Globulin Ratio 1.5 (0.9-2); Albumin Level 3.6 gm/dl (3.4-5.0); BUN Creatinine Ratio 30.8 (10-20); Bilirubin,Total 0.6 mg/dl (0.2-1.0); Calcium 8.7 mg/dl (8.5-10.1); Creatinine Clr Calc Pharmacy 101.7 ml/min; Globulin 2.4 gm/dl (2.5-4.0); Potassium 4.1 mmol/L (3.5-5.1)
[2021-09-14] MEDS: ACETAMINOPHEN 325 MG TAB PO SCH ×4 (07:21→19:15)
[2021-09-14] MEDS: oxyCODONE HCL IR 5 MG TAB (IMMEDIATE RELEASE) PO PRN (07:21)
[2021-09-14] MEDS: GABAPENTIN 100 MG CAP PO SCH ×3 (07:22→19:11)
[2021-09-14] MEDS: FOLIC ACID 1 MG TAB PO SCH (07:23)
[2021-09-14] MEDS: THIAMINE HCL 100 MG TAB PO SCH (07:23)
[2021-09-14] MEDS: CYANOCOBALAMIN (B-12) 100 MCG TABLET PO SCH (07:24)
[2021-09-14] MEDS: LOSARTAN POTASSIUM 25 MG TAB PO SCH (07:24)
[2021-09-14] MEDS: DICLOFENAC SOD 1% GEL 100 GM TUBE EXT SCH ×4 (07:25→19:10)
[2021-09-14] MEDS: ATORVASTATIN 10 MG TAB PO SCH (07:25)
[2021-09-14] MEDS: UMECLIDINIUM/VILANTEROL 62.5/25MCG 7 PUFFS/INHALER INH SCH (07:25)
[2021-09-14] MEDS: FLUTICASONE FUROATE 100MCG 14 PUFFS/INHALER INH SCH (07:27)
--- NOTE | 2021-09-14 08:09 | Hospitalist Progress Note ---
Date of Service September 14, 2021 Assessment & Plan (1) Left arm pain: (2) Cervical spine disease: (3) Hypoxia: (4) COPD (chronic obstructive pulmonary disease): (5) Hypertension: (6) Alcohol dependence: Plan: This is a 66-year-old female who has significant past medical history of HTN, HLD, COPD, SANDRA, former tobacco abuse, alcohol dependence, left apical pulmonary nodule, hepatic steatosis, history of spontaneous pneumothorax requiring thoracotomy who presents to ED secondary to left upper extremity pain since 6 PM last evening. Acute nontraumatic left arm pain Known cervical spine disease Cervical spine radiculopathy Admitted to telemetry for further monitoring Initial concern for admission with hypoxia due to narcotic administration as well as left upper extremity pain with heart disease risk factors After further interview, questioning and physical exam does appear that patient is experiencing left sided cervical radicular symptoms Her serial EKG x2 and troponins has been negative thus far, I do not feel this is cardiac in nature but will cycle trops for completeness She continued to have intermittent sharp and burning pain to left shoulder with radiation to left elbow and numbness and tingling to left fingers [address] Rodriguez for cervical spine injections Most recent MRI on 08/14/2020 revealed degenerative spondylosis of mid cervical spine with moderate thecal sac narrowing at C5-6 and severe foraminal stenosis bilaterally at C3-4, on the left at C4-5 and bilaterally at C5-6 Shoulder x-ray and left humerus x-ray are negative for fracture but did reveal shoulder osteoarthritis Cervical spine MRI obtained IMPRESSION: 1. Multilevel discogenic degeneration with advanced facet arthrosis as detailed above. 2. Mild central canal stenosis at C5-C6 with moderate to severe multilevel neural foraminal narrowing. 3. Mild marrow edema involving the left C4-C5 facets, likely degenerative. 4. Normal signal of the cervical spinal cord. Ortho spine consulted given abnormal imaging Also possibility of L supraspinatus bursitis Pain control Scheduled Tylenol, IV Toradol 15 mg as needed for moderate pain and oral oxycodone 5 mg every 6 hours as needed for severe pain Stool softener consult PT/OT alternate heat/ice per pt preference 09/14 -pain much improved, also mobility of the upper extremity, patient can now raise her arms and move her arms without much difficulty -Seen by PT, recommend to use cane for ambulation (which she already has at home) Hypoxia - resolved COPD Likely in setting of narcotic administration We will try to avoid IV narcotic medications due to underlying COPD No acute exacerbation Continue Trelegy, as needed albuterol HTN bp now normalized likely in setting of pain continue losartan HLD continue statin Hypothyroidism elevated tsh, normal t4 continue levothyroxine recommend repeat TSH/t4 as OP in 4 weeks Known ETOH dependence 4-5light beers daily, last 4pm last evening pt states she has gone 2 months w/o ETOH and no issue w/ withdrawal AWSS protocol, prn IV ativan daily thiamine, folic acid Former tobacco abuse quit 1 year ago DVT ppx: SQ Lovenox Dispo: tele FULL CODE PCP: Dr. Pena Admission and Anticipated Discharge Date Admission Date: September 13, 2021 Subjective Patient seen in follow-up of left upper extremity pain, hypoxia after receiving pain medications Patient is currently feeling much better Reports arm pain is much improved She is also saturating well on room air, breathing without any difficulty She underwent cervical MRI on admission, given that results are abnormal, will discuss further with orthopedics Review of Systems Review of Systems: All systems reviewed & are unremarkable except as noted in Subjective Physical Exam Physical Exam: Constitutional: WD/WN, NAD Head: Normocephalic, Atraumatic Eyes: PERRL, EOMI, conjunctivae normal, anicteric sclerae ENMT: external ear and nose normal, oropharynx normal Neck:supple Respiratory: normal respiratory effort, Lungs clear to auscultation, no wheeze, rales, rhonchi. Normal insp/exp effort, no accessory muscle use Cardiovascular: RRR, no murmur, no edema Vessels: no JVD or carotid bruit Chest: normal inspection of chest Abdomen: normal bowel sounds, soft, nontender Musculoskeletal: able to move extremities including LUE (much improved from previous) Skin: no rashes, warm and dry normal turgor Neurologic: PERRL, EOMI,no face palsy, no dysarthria, moves all extremities Psychiatric: A+Ox3, euthymic affect Results & Data Results & Data ([facility]) Vital Signs (Past 12 Hours) Vital Signs Temp Pulse Pulse Resp BP Pulse Ox Pulse Ox 09/14/21 03:06 36.5 C 62 17 110/63 94 09/14/21 02:33 88 05/12/22 00:00 97 Laboratory Results 09/14/21 09/14/21 09/14/21 Range/Units 05:49 05:49 05:49 WBC 9.87 (4.8-10.8) K/uL RBC 3.97 L (4.2-5.4) M/uL Hgb 11.8 L (12.0-16.0) g/dL Hct 36.7 L (37-47) % MCV 92.4 (80-100) fL MCH 29.7 (25-34) pg MCHC 32.2 (32-36) g/dL RDW Std Deviation 46.5 H (36.4-46.3) fL RDW Coeff of Angela 13.8 (11.5-14.5) % Plt Count 275 (130-400) K/uL MPV 10.4 (7.4-10.4) fL Immature Gran % (Auto) 0.2 % Neut % (Auto) 77.8 % Lymph % (Auto) 15.1 % [place] % (Auto) 6.8 % Eos % (Auto) 0.1 % Baso % (Auto) 0.0 % Neut # (Auto) 7.68 H (1.4-6.5) K/uL Lymph # (Auto) 1.49 (1.2-3.4) K/uL [place] # (Auto) 0.67 H (0.11-0.59) K/uL Eos # (Auto) 0.01 (0-0.5) K/uL Baso # (Auto) 0.00 (0-0.2) K/uL Immature Gran # (Auto) 0.02 (0.00-0.02) K/uL VBG pH (7.36-7.41) VBG pCO2 (38-50) mmHg VBG pO2 mmHg VBG HCO3 mmol/L VBG O2 Saturation % VBG Base Excess mEq/L Barometric Pressure mm/Hg Sodium 135 L (136-145) mmol/L Potassium 4.1 (3.5-5.1) mmol/L Chloride 103 (98-107) mmol/L Carbon Dioxide 26 (21-32) mmol/L Anion Gap 6 (3-11) BUN 16 (6-23) mg/dl Creatinine 0.52 L (0.6-1.2) mg/dl Est Cr Clr Drug Dosing 101.7 ml/min Est GFR ( Amer) 117.0 ml/min Est GFR (Non-Af Amer) 101.0 ml/min BUN/Creatinine Ratio 30.8 H (10-20) Glucose 118 H (70-99(Fasting)) mg/dl Estimat Average Glucose Pending Hemoglobin A1c Pending Calcium 8.7 (8.5-10.1) mg/dl Phosphorus (2.5-4.9) mg/dl Magnesium (1.7-2.4) mg/dl Total Bilirubin 0.6 (0.2-1.0) mg/dl AST 13 (13-39) U/L ALT 25 (7-52) U/L Alkaline Phosphatase 53 (34-104) U/L Troponin I High Sens (0-14) pg/ml Total Protein 6.0 (6.0-8.3) gm/dl Albumin 3.6 (3.4-5.0) gm/dl Globulin 2.4 L (2.5-4.0) gm/dl Albumin/Globulin Ratio 1.5 (0.9-2) Procalcitonin (0-0.5) ng/ml TSH (0.300-4.500) uIu/ml Free T4 (0.61-1.60) ng/dl Ethyl Alcohol mg/dL (<10.0) mg/dl Hepatitis C Ab (EIA) Hep C Ab Signal/Cutoff SARS-CoV-2, RNA, NAAT (NEGATIVE) 09/14/21 09/13/21 09/13/21 Range/Units 00:58 17:40 14:38 WBC (4.8-10.8) K/uL RBC (4.2-5.4) M/uL Hgb (12.0-16.0) g/dL Hct (37-47) % MCV (80-100) fL MCH (25-34) pg MCHC (32-36) g/dL RDW Std Deviation (36.4-46.3) fL RDW Coeff of Angela (11.5-14.5) % Plt Count (130-400) K/uL MPV (7.4-10.4) fL Immature Gran % (Auto) % Neut % (Auto) % Lymph % (Auto) % [place] % (Auto) % Eos % (Auto) % Baso % (Auto) % Neut # (Auto) (1.4-6.5) K/uL Lymph # (Auto) (1.2-3.4) K/uL [place] # (Auto) (0.11-0.59) K/uL Eos # (Auto) (0-0.5) K/uL Baso # (Auto) (0-0.2) K/uL Immature Gran # (Auto) (0.00-0.02) K/uL VBG pH (7.36-7.41) VBG pCO2 (38-50) mmHg VBG pO2 mmHg VBG HCO3 mmol/L VBG O2 Saturation % VBG Base Excess mEq/L Barometric Pressure mm/Hg Sodium (136-145) mmol/L Potassium (3.5-5.1) mmol/L Chloride (98-107) mmol/L Carbon Dioxide (21-32) mmol/L Anion Gap (3-11) BUN (6-23) mg/dl Creatinine (0.6-1.2) mg/dl Est Cr Clr Drug Dosing ml/min Est GFR ( Amer) ml/min Est GFR (Non-Af Amer) ml/min BUN/Creatinine Ratio (10-20) Glucose (70-99(Fasting)) mg/dl Estimat Average Glucose Hemoglobin A1c Calcium (8.5-10.1) mg/dl Phosphorus (2.5-4.9) mg/dl Magnesium (1.7-2.4) mg/dl Total Bilirubin (0.2-1.0) mg/dl AST (13-39) U/L ALT (7-52) U/L Alkaline Phosphatase (34-104) U/L Troponin I High Sens 3.8 4.4 (0-14) pg/ml Total Protein (6.0-8.3) gm/dl Albumin (3.4-5.0) gm/dl Globulin (2.5-4.0) gm/dl Albumin/Globulin Ratio (0.9-2) Procalcitonin (0-0.5) ng/ml TSH (0.300-4.500) uIu/ml Free T4 (0.61-1.60) ng/dl Ethyl Alcohol mg/dL (<10.0) mg/dl Hepatitis C Ab (EIA) Hep C Ab Signal/Cutoff SARS-CoV-2, RNA, NAAT NEGATIVE (NEGATIVE) 09/13/21 09/13/21 09/13/21 Range/Units 12:08 12:08 09:00 WBC (4.8-10.8) K/uL RBC (4.2-5.4) M/uL Hgb (12.0-16.0) g/dL Hct (37-47) % MCV (80-100) fL MCH (25-34) pg MCHC (32-36) g/dL RDW Std Deviation (36.4-46.3) fL RDW Coeff of Angela (11.5-14.5) % Plt Count (130-400) K/uL MPV (7.4-10.4) fL Immature Gran % (Auto) % Neut % (Auto) % Lymph % (Auto) % [place] % (Auto) % Eos % (Auto) % Baso % (Auto) % Neut # (Auto) (1.4-6.5) K/uL Lymph # (Auto) (1.2-3.4) K/uL [place] # (Auto) (0.11-0.59) K/uL Eos # (Auto) (0-0.5) K/uL Baso # (Auto) (0-0.2) K/uL Immature Gran # (Auto) (0.00-0.02) K/uL VBG pH 7.42 H (7.36-7.41) VBG pCO2 38 (38-50) mmHg VBG pO2 81 mmHg VBG HCO3 24 mmol/L VBG O2 Saturation 96.4 % VBG Base Excess -0.2 mEq/L Barometric Pressure 738.6 mm/Hg Sodium (136-145) mmol/L Potassium (3.5-5.1) mmol/L Chloride (98-107) mmol/L Carbon Dioxide (21-32) mmol/L Anion Gap (3-11) BUN (6-23) mg/dl Creatinine (0.6-1.2) mg/dl Est Cr Clr Drug Dosing ml/min Est GFR ( Amer) ml/min Est GFR (Non-Af Amer) ml/min BUN/Creatinine Ratio (10-20) Glucose (70-99(Fasting)) mg/dl Estimat Average Glucose Hemoglobin A1c Calcium (8.5-10.1) mg/dl Phosphorus (2.5-4.9) mg/dl Magnesium (1.7-2.4) mg/dl Total Bilirubin (0.2-1.0) mg/dl AST (13-39) U/L ALT (7-52) U/L Alkaline Phosphatase (34-104) U/L Troponin I High Sens 4.9 (0-14) pg/ml Total Protein (6.0-8.3) gm/dl Albumin (3.4-5.0) gm/dl Globulin (2.5-4.0) gm/dl Albumin/Globulin Ratio (0.9-2) Procalcitonin (0-0.5) ng/ml TSH (0.300-4.500) uIu/ml Free T4 (0.61-1.60) ng/dl Ethyl Alcohol mg/dL (<10.0) mg/dl Hepatitis C Ab (EIA) Pending Hep C Ab Signal/Cutoff Pending SARS-CoV-2, RNA, NAAT (NEGATIVE) 09/13/21 09/13/21 09/13/21 Range/Units 09:00 09:00 09:00 WBC (4.8-10.8) K/uL RBC (4.2-5.4) M/uL Hgb (12.0-16.0) g/dL Hct (37-47) % MCV (80-100) fL MCH (25-34) pg MCHC (32-36) g/dL RDW Std Deviation (36.4-46.3) fL RDW Coeff of Angela (11.5-14.5) % Plt Count (130-400) K/uL MPV (7.4-10.4) fL Immature Gran % (Auto) % Neut % (Auto) % Lymph % (Auto) % [place] % (Auto) % Eos % (Auto) % Baso % (Auto) % Neut # (Auto) (1.4-6.5) K/uL Lymph # (Auto) (1.2-3.4) K/uL [place] # (Auto) (0.11-0.59) K/uL Eos # (Auto) (0-0.5) K/uL Baso # (Auto) (0-0.2) K/uL Immature Gran # (Auto) (0.00-0.02) K/uL VBG pH (7.36-7.41) VBG pCO2 (38-50) mmHg VBG pO2 mmHg VBG HCO3 mmol/L VBG O2 Saturation % VBG Base Excess mEq/L Barometric Pressure mm/Hg Sodium (136-145) mmol/L Potassium (3.5-5.1) mmol/L Chloride (98-107) mmol/L Carbon Dioxide (21-32) mmol/L Anion Gap (3-11) BUN (6-23) mg/dl Creatinine (0.6-1.2) mg/dl Est Cr Clr Drug Dosing ml/min Est GFR ( Amer) ml/min Est GFR (Non-Af Amer) ml/min BUN/Creatinine Ratio (10-20) Glucose (70-99(Fasting)) mg/dl Estimat Average Glucose Hemoglobin A1c Calcium (8.5-10.1) mg/dl Phosphorus (2.5-4.9) mg/dl Magnesium (1.7-2.4) mg/dl Total Bilirubin (0.2-1.0) mg/dl AST (13-39) U/L ALT (7-52) U/L Alkaline Phosphatase (34-104) U/L Troponin I High Sens (0-14) pg/ml Total Protein (6.0-8.3) gm/dl Albumin (3.4-5.0) gm/dl Globulin (2.5-4.0) gm/dl Albumin/Globulin Ratio (0.9-2) Procalcitonin < 0.05 (0-0.5) ng/ml TSH 11.178 H (0.300-4.500) uIu/ml Free T4 0.79 (0.61-1.60) ng/dl Ethyl Alcohol mg/dL < 10.0 (<10.0) mg/dl Hepatitis C Ab (EIA) Hep C Ab Signal/Cutoff SARS-CoV-2, RNA, NAAT (NEGATIVE) 09/13/21 09/13/21 Range/Units 09:00 09:00 WBC 15.31 H (4.8-10.8) K/uL RBC 4.68 (4.2-5.4) M/uL Hgb 14.3 (12.0-16.0) g/dL Hct 42.9 (37-47) % MCV 91.7 (80-100) fL MCH 30.6 (25-34) pg MCHC 33.3 (32-36) g/dL RDW Std Deviation 46.6 H (36.4-46.3) fL RDW Coeff of Angela 13.9 (11.5-14.5) % Plt Count 348 (130-400) K/uL MPV 10.6 H (7.4-10.4) fL Immature Gran % (Auto) 0.3 % Neut % (Auto) 76.2 % Lymph % (Auto) 14.6 % [place] % (Auto) 8.0 % Eos % (Auto) 0.8 % Baso % (Auto) 0.1 % Neut # (Auto) 11.66 H (1.4-6.5) K/uL Lymph # (Auto) 2.23 (1.2-3.4) K/uL [place] # (Auto) 1.23 H (0.11-0.59) K/uL Eos # (Auto) 0.13 (0-0.5) K/uL Baso # (Auto) 0.01 (0-0.2) K/uL Immature Gran # (Auto) 0.05 H (0.00-0.02) K/uL VBG pH (7.36-7.41) VBG pCO2 (38-50) mmHg VBG pO2 mmHg VBG HCO3 mmol/L VBG O2 Saturation % VBG Base Excess mEq/L Barometric Pressure mm/Hg Sodium 136 (136-145) mmol/L Potassium 3.9 (3.5-5.1) mmol/L Chloride 100 (98-107) mmol/L Carbon Dioxide 24 (21-32) mmol/L Anion Gap 12 H (3-11) BUN 18 (6-23) mg/dl Creatinine 0.72 (0.6-1.2) mg/dl Est Cr Clr Drug Dosing 74.6 ml/min Est GFR ( Amer) 102.6 ml/min Est GFR (Non-Af Amer) 88.5 ml/min BUN/Creatinine Ratio 25.0 H (10-20) Glucose 152 H (70-99(Fasting)) mg/dl Estimat Average Glucose Hemoglobin A1c Calcium 9.5 (8.5-10.1) mg/dl Phosphorus 3.6 (2.5-4.9) mg/dl Magnesium 1.9 (1.7-2.4) mg/dl Total Bilirubin 0.9 (0.2-1.0) mg/dl AST 21 (13-39) U/L ALT 37 (7-52) U/L Alkaline Phosphatase 70 (34-104) U/L Troponin I High Sens 6.2 (0-14) pg/ml Total Protein 7.3 (6.0-8.3) gm/dl Albumin 4.4 (3.4-5.0) gm/dl Globulin 2.9 (2.5-4.0) gm/dl Albumin/Globulin Ratio 1.5 (0.9-2) Procalcitonin (0-0.5) ng/ml TSH (0.300-4.500) uIu/ml Free T4 (0.61-1.60) ng/dl Ethyl Alcohol mg/dL (<10.0) mg/dl Hepatitis C Ab (EIA) Hep C Ab Signal/Cutoff SARS-CoV-2, RNA, NAAT (NEGATIVE) Medications Administered Current Inpatient Medications Acetaminophen (Acetaminophen 325 Mg Tab) 650 mg PO QID [facility] Stop: 10/13/21 16:59 Last Admin: 09/14/21 07:21 Dose: 650 mg Documented by: Acetaminophen (Acetaminophen 325 Mg Tab) 650 mg PO Q4H PRN PRN Reason: Pain or Fever Stop: 10/13/21 16:03 Al Hydrox/Mg Hydrox/Simethicone (Aluminum/Magnesium Susp 30 Ml Udc) 15 ml PO Q4H PRN PRN Reason: Dyspepsia Stop: 10/13/21 16:03 Albuterol (Albuterol Hfa 8 Gm Inhaler) 2 puffs INH Q6H PRN PRN Reason: Adequate Ventilation Stop: 10/13/21 16:03 Atorvastatin Calcium (Atorvastatin 10 Mg Tab) 10 mg PO QAM [facility] Stop: 10/14/21 08:59 Last Admin: 09/14/21 07:25 Dose: 10 mg Documented by: Cyanocobalamin (Cyanocobalamin (B-12) 100 Mcg Tablet) 100 mcg PO QAM [facility] Stop: 10/14/21 08:59 Last Admin: 09/14/21 07:24 Dose: 100 mcg Documented by: Diclofenac Sodium (Diclofenac Sod 1% Gel 100 Gm Tube) 2 gm EXT QID [facility] Stop: 10/13/21 16:59 Last Admin: 09/14/21 07:25 Dose: 2 gm Documented by: Enoxaparin Sodium (Enoxaparin Inj 40 Mg/0.4 Ml Syr) 40 mg SQ Q24H [facility] Stop: 10/13/21 21:59 Last Admin: 09/13/21 22:01 Dose: 40 mg Documented by: Fluticasone Furoate (Fluticasone Furoate 100mcg 14 Puffs/Inhaler) 1 puffs INH DAILY [facility] Stop: 10/14/21 08:59 Last Admin: 09/14/21 07:27 Dose: 1 puffs Documented by: Folic Acid (Folic Acid 1 Mg Tab) 1 mg PO QAM [facility] Stop: 10/13/21 16:03 Last Admin: 09/14/21 07:23 Dose: 1 mg Documented by: Gabapentin (Gabapentin 100 Mg Cap) 100 mg PO TID [facility] Stop: 10/13/21 20:59 Last Admin: 09/14/21 07:22 Dose: 100 mg Documented by: Ketorolac Tromethamine (Ketorolac Tromethamine 15 Mg/Ml Vial) 15 mg IV Q6H PRN PRN Reason: Moderate Pain Stop: 09/18/21 19:59 Last Admin: 09/13/21 22:59 Dose: 15 mg Documented by: Levothyroxine Sodium (Levothyroxine Sodium 75 Mcg Tablet) 75 mcg PO DAILYBB [facility] Stop: 10/14/21 06:29 Last Admin: 09/14/21 06:04 Dose: 75 mcg Documented by: Lidocaine (Lidocaine 5% 1 Patch) 1 patch TD DAILY@1700 [facility] Stop: 10/13/21 16:59 Last Admin: 09/13/21 17:29 Dose: Not Given Documented by: Lorazepam (Lorazepam 2 Mg/1 Ml Vial) 1 mg IV UD PRN; Protocol PRN Reason: EtOH Withdrawl AWSS Score 6,7 Stop: 10/13/21 16:03 Lorazepam (Lorazepam 2 Mg/1 Ml Vial) 2 mg IV UD PRN; Protocol PRN Reason: EtOH Withdrawl AWSS Score 8,9 Stop: 10/13/21 16:03 Lorazepam (Lorazepam 2 Mg/1 Ml Vial) 3 mg IV ONCE PRN; Protocol PRN Reason: EtOH Withdrawl AWSS Score >=10 Stop: 10/13/21 16:03 Losartan Potassium (Losartan Potassium 25 Mg Tab) 25 mg PO QAM [facility] Stop: 10/14/21 08:59 Last Admin: 09/14/21 07:24 Dose: 25 mg Documented by: Magnesium Hydroxide (Magnesium Hydroxide Susp 30 Ml Udc) 30 ml PO Q12H PRN PRN Reason: Constipation Stop: 10/13/21 16:03 Miscellaneous (Remove Lidoderm Patch) 1 ea N/A DAILY@0500 [facility] Stop: 10/14/21 04:59 Last Admin: 09/14/21 05:58 Dose: Not Given Documented by: Ondansetron HCl (Ondansetron Inj 2 Mg/Ml 2 Ml Vial) 4 mg IV Q6H PRN PRN Reason: Nausea Stop: 10/13/21 16:03 Oxycodone HCl (Oxycodone Hcl Ir 5 Mg Tab (Immediate Release)) 5 mg PO Q6H PRN PRN Reason: Severe Pain Stop: 09/27/21 16:03 Last Admin: 09/14/21 07:21 Dose: 5 mg Documented by: Pantoprazole Sodium (Pantoprazole 40 Mg Tab) 40 mg PO DAILY [facility] Stop: 10/14/21 08:59 Polyethylene Glycol (Polyethylene (Miralax) 17 Gm Pack) 17 gm PO DAILY PRN PRN Reason: Constipation Stop: 10/13/21 16:03 Senna/Docusate Sodium (Docusate Sodium/Senna 50/8.6mg Tab) 1 tab PO HS [facility] Stop: 10/13/21 20:59 Last Admin: 09/13/21 20:28 Dose: 1 tab Documented by: Thiamine HCl (Thiamine Hcl 100 Mg Tab) 100 mg PO QAM [facility] Stop: 10/13/21 16:03 Last Admin: 09/14/21 07:23 Dose: 100 mg Documented by: Umeclidinium/Vilanterol (Umeclidinium/Vilanterol 62.5/25mcg 7 Puffs/Inhaler) 1 puffs INH DAILY [facility] Stop: 10/14/21 08:59 Last Admin: 09/14/21 07:25 Dose: 1 puffs Documented by: (1) Alcohol dependence Substance use status: unspecified alcohol-induced disorder Qualified Code(s): F10.29 - Alcohol dependence with unspecified alcohol-induced disorder (2) COPD (chronic obstructive pulmonary disease) COPD type: unspecified COPD Qualified Code(s): J44.9 - Chronic obstructive pulmonary disease, unspecified
[2021-09-14] MEDS: PANTOprazole 40 MG TAB PO SCH (08:36)
[2021-09-14] MEDS ORDERED: NON-FORMULARY MEDICATION (Fluticasone-Umeclidin-Vilanter [Trelegy Ellipta] 100-62.5-25 mcg INH SCH (09:00)
[2021-09-14 09:15] LABS: Estimated Average Glucose 140 mg/dl; Hemoglobin A1C 6.5 % (4.5-5.6)
--- NOTE | 2021-09-14 10:29 | Magnetic Resonance Report ---
MR cervical spine wo con HISTORY: 66 years-old Female Left cervical radiculopathy Chronic neck pain with left upper extremity radicular symptoms. COMPARISON: None TECHNIQUE: Multiplanar multisequence MRI of the cervical spine was obtained without the use of IV con trast. FINDINGS: The imaged posterior fossa structures appear unremarkable. Signal within the brainstem, cervical and imaged thoracic spinal cord appears normal. No epidural fluid collections are identified. No acute fr acture, subluxation, endplate erosion or marrow replacing process. Minimal marrow edema involves the left C4-C5 facets, likely degenerative. C2-C3: Mild intervertebral disc space narrowing and uncovertebral spurring. Facet arthrosis with part ial bony fusion. The central canal and neural foramen are generally patent. C3-C4: Mild intervertebral disc space narrowing with small posterior disc osteophyte complex and inocente re facet arthrosis. The central canal is patent. Severe left with moderate right neural foraminal lamont rowing. C4-C5: Mild intervertebral disc space narrowing with uncovertebral hypertrophy and tiny posterior herb ular disc bulge. Severe facet arthrosis. The central canal is patent. Moderate right with moderate to severe left neural foraminal narrowing. C5-C6: Severe intervertebral disc space narrowing. Spondylitic spurring with uncovertebral hypertroph y and posterior annular disc bulge, eccentric to the right. Severe facet arthrosis. There is mild kannan tral canal stenosis, AP dimension of the thecal sac measuring 8 mm. There is severe narrowing of the right lateral recess with severe right and moderate left neural foraminal stenosis. C6-C7: Moderate intervertebral disc space narrowing. Spondylitic spurring with uncovertebral hypertro phy and posterior disc osteophyte complex with severe facet arthrosis. The central canal is patent. M ild to moderate left with moderate right neural foraminal narrowing. C7-T1: Severe facet arthrosis. No central canal or neural foraminal narrowing. IMPRESSION: 1. Multilevel discogenic degeneration with advanced facet arthrosis as detailed above. 2. Mild central canal stenosis at C5-C6 with moderate to severe multilevel neural foraminal narrowing . 3. Mild marrow edema involving the left C4-C5 facets, likely degenerative. 4. Normal signal of the cervical spinal cord. ACT 112: Negative or not required by law. The above report was generated using voice recognition software. It may contain grammatical, syntax o r spelling errors. Dictated: 09/14/2021 8:34 AM Transcribed: 09/14/2021 9:03 AM Brandy [id number] [email or web address] Electronically signed by: Lan Hillman M.D. 09/14/2021 10:28 AM
[2021-09-14] MEDS: LIDOCAINE 5% 1 PATCH TD SCH (15:55)
[2021-09-14] MEDS: ENOXAPARIN INJ 40 MG/0.4 ML SYR SQ SCH (19:09)
[2021-09-14] MEDS: DOCUSATE SODIUM/SENNA 50/8.6MG TAB PO SCH (19:11)
--- NOTE | 2021-09-14 23:34 | Electrocardiogram Report ---
Test Reason : Blood Pressure : / mmHG Vent. Rate : 125 BPM Atrial Rate : 125 BPM P-R Int : 120 ms QRS Dur : 084 ms QT Int : 296 ms P-R-T Axes : 082 043 091 degrees QTc Int : 427 ms Sinus tachycardia Nonspecific ST abnormality When compared with ECG of 03-SEP-2020 19:38, No significant change was found Confirmed by Lio Landry ([id number]) on 09/14/2021 11:34:12 PM Referred By: REFERRED SELF Confirmed By:Lio Landry
[2021-09-15] MEDS: LEVOTHYROXINE SODIUM 75 MCG TABLET PO SCH (06:05)
--- NOTE | 2021-09-15 08:49 | Hospitalist Progress Note ---
Date of Service September 15, 2021 Assessment & Plan (1) Left arm pain: (2) Cervical spine disease: (3) Hypoxia: (4) COPD (chronic obstructive pulmonary disease): (5) Hypertension: (6) Alcohol dependence: Plan: This is a 66-year-old female who has significant past medical history of HTN, HLD, COPD, SANRDA, former tobacco abuse, alcohol dependence, left apical pulmonary nodule, hepatic steatosis, history of spontaneous pneumothorax requiring thoracotomy who presents to ED secondary to left upper extremity pain since 6 PM last evening. Acute nontraumatic left arm pain Known cervical spine disease Cervical spine radiculopathy Admitted to telemetry for further monitoring Initial concern for admission with hypoxia due to narcotic administration as well as left upper extremity pain with heart disease risk factors After further interview, questioning and physical exam does appear that patient is experiencing left sided cervical radicular symptoms Her serial EKG x2 and troponins has been negative thus far, I do not feel this is cardiac in nature but will cycle trops for completeness She continued to have intermittent sharp and burning pain to left shoulder with radiation to left elbow and numbness and tingling to left fingers [address] Rodriguez for cervical spine injections Most recent MRI on 08/14/2020 revealed degenerative spondylosis of mid cervical spine with moderate thecal sac narrowing at C5-6 and severe foraminal stenosis bilaterally at C3-4, on the left at C4-5 and bilaterally at C5-6 Shoulder x-ray and left humerus x-ray are negative for fracture but did reveal shoulder osteoarthritis Cervical spine MRI obtained IMPRESSION: 1. Multilevel discogenic degeneration with advanced facet arthrosis as detailed above. 2. Mild central canal stenosis at C5-C6 with moderate to severe multilevel neural foraminal narrowing. 3. Mild marrow edema involving the left C4-C5 facets, likely degenerative. 4. Normal signal of the cervical spinal cord. Ortho spine consulted given abnormal imaging -recommend to continue with PT, pain management for now 09/14 -pain much improved, also mobility of the upper extremity, patient can now raise her arms and move her arms without much difficulty -Seen by PT, recommend to use cane for ambulation (which she already has at home) Hypoxia - resolved COPD Likely in setting of narcotic administration We will try to avoid IV narcotic medications due to underlying COPD No acute exacerbation Continue Trelegy, as needed albuterol New dg. of DM type 2 Hgb A1c 6.5% - pt will need to follow up w/ pcp lifestyle modifications encouraged HTN bp now normalized likely in setting of pain continue losartan HLD continue statin Hypothyroidism elevated tsh, normal t4 continue levothyroxine recommend repeat TSH/t4 as OP in 4 weeks Known ETOH dependence 4-5light beers daily, last 4pm last evening pt states she has gone 2 months w/o ETOH and no issue w/ withdrawal AWSS protocol, prn IV ativan daily thiamine, folic acid Former tobacco abuse quit 1 year ago DVT ppx: SQ Lovenox Dispo: tele FULL CODE PCP: Dr. Pena Admission and Anticipated Discharge Date Admission Date: September 13, 2021 Subjective Patient seen in follow-up of left upper extremity pain, hypoxia after receiving pain medications Patient is currently feeling much better Reports arm pain is much improved She is also saturating well on room air, breathing without any difficulty She underwent cervical MRI on admission, given that results are abnormal, discussed further with orthopedics Review of Systems Review of Systems: All systems reviewed & are unremarkable except as noted in Subjective Physical Exam Physical Exam: Constitutional: WD/WN, NAD Head: Normocephalic, Atraumatic Eyes: PERRL, EOMI, conjunctivae normal, anicteric sclerae ENMT: external ear and nose normal, oropharynx normal Neck:supple Respiratory: normal respiratory effort, Lungs clear to auscultation, no wheeze, rales, rhonchi. Normal insp/exp effort, no accessory muscle use Cardiovascular: RRR, no murmur, no edema Vessels: no JVD or carotid bruit Chest: normal inspection of chest Abdomen: normal bowel sounds, soft, nontender Musculoskeletal: able to move extremities including LUE (much improved from previous) Skin: no rashes, warm and dry normal turgor Neurologic: PERRL, EOMI,no face palsy, no dysarthria, moves all extremities Psychiatric: A+Ox3, euthymic affect Results & Data Results & Data ([facility]) Vital Signs (Past 12 Hours) Vital Signs Temp Pulse Pulse Resp BP Pulse Ox Pulse Ox 09/15/21 07:36 36.8 C 75 15 131/71 92 09/15/21 03:11 36.4 C L 81 16 119/57 L 94 09/15/21 00:00 95 09/14/21 23:51 36.5 C 76 16 117/57 L 95 09/14/21 22:18 82 Laboratory Results 09/14/21 09/13/21 Range/Units 05:49 09:00 Estimat Average Glucose 140 mg/dl Hemoglobin A1c 6.5 H (4.5-5.6) % Hepatitis C Ab (EIA) NON-REACTIVE (NON-REACTIVE) Hep C Ab Signal/Cutoff 0.02 (<1.00) Medications Administered Current Inpatient Medications Acetaminophen (Acetaminophen 325 Mg Tab) 650 mg PO QID [facility] Stop: 10/13/21 16:59 Last Admin: 09/14/21 19:15 Dose: 650 mg Documented by: Acetaminophen (Acetaminophen 325 Mg Tab) 650 mg PO Q4H PRN PRN Reason: Pain or Fever Stop: 10/13/21 16:03 Al Hydrox/Mg Hydrox/Simethicone (Aluminum/Magnesium Susp 30 Ml Udc) 15 ml PO Q4H PRN PRN Reason: Dyspepsia Stop: 10/13/21 16:03 Albuterol (Albuterol Hfa 8 Gm Inhaler) 2 puffs INH Q6H PRN PRN Reason: Adequate Ventilation Stop: 10/13/21 16:03 Atorvastatin Calcium (Atorvastatin 10 Mg Tab) 10 mg PO QAM [facility] Stop: 10/14/21 08:59 Last Admin: 09/14/21 07:25 Dose: 10 mg Documented by: Cyanocobalamin (Cyanocobalamin (B-12) 100 Mcg Tablet) 100 mcg PO QAM [facility] Stop: 10/14/21 08:59 Last Admin: 09/14/21 07:24 Dose: 100 mcg Documented by: Diclofenac Sodium (Diclofenac Sod 1% Gel 100 Gm Tube) 2 gm EXT QID [facility] Stop: 10/13/21 16:59 Last Admin: 09/14/21 19:10 Dose: 2 gm Documented by: Enoxaparin Sodium (Enoxaparin Inj 40 Mg/0.4 Ml Syr) 40 mg SQ Q24H [facility] Stop: 10/13/21 21:59 Last Admin: 09/14/21 19:09 Dose: 40 mg Documented by: Fluticasone Furoate (Fluticasone Furoate 100mcg 14 Puffs/Inhaler) 1 puffs INH DAILY [facility] Stop: 10/14/21 08:59 Last Admin: 09/14/21 07:27 Dose: 1 puffs Documented by: Folic Acid (Folic Acid 1 Mg Tab) 1 mg PO QAM [facility] Stop: 10/13/21 16:03 Last Admin: 09/14/21 07:23 Dose: 1 mg Documented by: Gabapentin (Gabapentin 100 Mg Cap) 100 mg PO TID [facility] Stop: 10/13/21 20:59 Last Admin: 09/14/21 19:11 Dose: 100 mg Documented by: Ketorolac Tromethamine (Ketorolac Tromethamine 15 Mg/Ml Vial) 15 mg IV Q6H PRN PRN Reason: Moderate Pain Stop: 09/18/21 19:59 Last Admin: 09/13/21 22:59 Dose: 15 mg Documented by: Levothyroxine Sodium (Levothyroxine Sodium 75 Mcg Tablet) 75 mcg PO DAILYBB [facility] Stop: 10/14/21 06:29 Last Admin: 09/15/21 06:05 Dose: 75 mcg Documented by: Lidocaine (Lidocaine 5% 1 Patch) 1 patch TD DAILY@1700 [facility] Stop: 10/13/21 16:59 Last Admin: 09/14/21 15:55 Dose: Not Given Documented by: Lorazepam (Lorazepam 2 Mg/1 Ml Vial) 1 mg IV UD PRN; Protocol PRN Reason: EtOH Withdrawl AWSS Score 6,7 Stop: 10/13/21 16:03 Lorazepam (Lorazepam 2 Mg/1 Ml Vial) 2 mg IV UD PRN; Protocol PRN Reason: EtOH Withdrawl AWSS Score 8,9 Stop: 10/13/21 16:03 Lorazepam (Lorazepam 2 Mg/1 Ml Vial) 3 mg IV ONCE PRN; Protocol PRN Reason: EtOH Withdrawl AWSS Score >=10 Stop: 10/13/21 16:03 Losartan Potassium (Losartan Potassium 25 Mg Tab) 25 mg PO QAM [facility] Stop: 10/14/21 08:59 Last Admin: 09/14/21 07:24 Dose: 25 mg Documented by: Magnesium Hydroxide (Magnesium Hydroxide Susp 30 Ml Udc) 30 ml PO Q12H PRN PRN Reason: Constipation Stop: 10/13/21 16:03 Miscellaneous (Remove Lidoderm Patch) 1 ea N/A DAILY@0500 [facility] Stop: 10/14/21 04:59 Last Admin: 09/15/21 06:06 Dose: Not Given Documented by: Ondansetron HCl (Ondansetron Inj 2 Mg/Ml 2 Ml Vial) 4 mg IV Q6H PRN PRN Reason: Nausea Stop: 10/13/21 16:03 Oxycodone HCl (Oxycodone Hcl Ir 5 Mg Tab (Immediate Release)) 5 mg PO Q6H PRN PRN Reason: Severe Pain Stop: 09/27/21 16:03 Last Admin: 09/14/21 07:21 Dose: 5 mg Documented by: Pantoprazole Sodium (Pantoprazole 40 Mg Tab) 40 mg PO DAILY [facility] Stop: 10/14/21 08:59 Last Admin: 09/14/21 08:36 Dose: 40 mg Documented by: Polyethylene Glycol (Polyethylene (Miralax) 17 Gm Pack) 17 gm PO DAILY PRN PRN Reason: Constipation Stop: 10/13/21 16:03 Senna/Docusate Sodium (Docusate Sodium/Senna 50/8.6mg Tab) 1 tab PO HS [facility] Stop: 10/13/21 20:59 Last Admin: 09/14/21 19:11 Dose: 1 tab Documented by: Thiamine HCl (Thiamine Hcl 100 Mg Tab) 100 mg PO QAM [facility] Stop: 10/13/21 16:03 Last Admin: 09/14/21 07:23 Dose: 100 mg Documented by: Umeclidinium/Vilanterol (Umeclidinium/Vilanterol 62.5/25mcg 7 Puffs/Inhaler) 1 puffs INH DAILY [facility] Stop: 10/14/21 08:59 Last Admin: 09/14/21 07:25 Dose: 1 puffs Documented by: (1) Alcohol dependence Substance use status: unspecified alcohol-induced disorder Qualified Code(s): F10.29 - Alcohol dependence with unspecified alcohol-induced disorder (2) COPD (chronic obstructive pulmonary disease) COPD type: unspecified COPD Qualified Code(s): J44.9 - Chronic obstructive pulmonary disease, unspecified
[2021-09-15 08:58] LABS: Appearance Urine Clear (Clear); Bilirubin Urine Negative (Negative); Blood Urine Negative (Negative); Color Urine Yellow; Glucose Urine UA Negative (Negative); Ketones Urine Negative (Negative); Leukocyte Esterase Urine Negative (Negative); Nitrite Urine Negative (Negative); Protein Urine Negative (Negative); Specific Gravity Urine 1.009 (1.000-1.030); Urobilinogen Urine Negative (Negative)
[2021-09-15] MEDS: ACETAMINOPHEN 325 MG TAB PO SCH ×2 (09:06→12:29)
[2021-09-15] MEDS: DICLOFENAC SOD 1% GEL 100 GM TUBE EXT SCH ×2 (09:07→12:29)
[2021-09-15] MEDS: CYANOCOBALAMIN (B-12) 100 MCG TABLET PO SCH (09:07)
[2021-09-15] MEDS: FLUTICASONE FUROATE 100MCG 14 PUFFS/INHALER INH SCH (09:07)
[2021-09-15] MEDS: ATORVASTATIN 10 MG TAB PO SCH (09:07)
[2021-09-15] MEDS: UMECLIDINIUM/VILANTEROL 62.5/25MCG 7 PUFFS/INHALER INH SCH (09:08)
[2021-09-15] MEDS: FOLIC ACID 1 MG TAB PO SCH (09:08)
[2021-09-15] MEDS: GABAPENTIN 100 MG CAP PO SCH ×2 (09:08→12:55)
[2021-09-15] MEDS: LOSARTAN POTASSIUM 25 MG TAB PO SCH (09:09)
[2021-09-15] MEDS: PANTOprazole 40 MG TAB PO SCH (09:09)
[2021-09-15] MEDS: THIAMINE HCL 100 MG TAB PO SCH (09:09)
--- NOTE | 2021-09-15 10:16 | Orthopedic Consultation ---
Date of Consultation September 15, 2021 Assessment & Plan (1) Cervical spine disease: I reviewed the films with Dr. Greenfield. She does have spondylosis at C3-4, C4-5, C5-6 which is producing foraminal stenosis which is worse on the left this likely acutely caused irritation and her radicular complaints. The pain at this point however is well controlled. The numbness and tingling in the ulnar 2 digits are likely coming from ulnar nerve entrapment at the elbow. We discussed her options for treatment and she could consider course of physical therapy as an outpatient as well as referral to pain management for injections again as an outpatient. Surgically at some point she may be a candidate for an anterior cervical discectomy and fusion however at this point she does not need acute intervention and she would like to avoid surgery if possible. She is welcome to follow-up with our office as an outpatient if her pain symptoms persist. History of Present Illness Attending Physician: Fabrizio Langford MD History of Present Illness Patient was seen bedside in room 229. She was admitted through the emergency room on 09/13/2021. She had complaints of left arm pain. She states that the evening before she had gone to bed early. She woke up in middle the night with pain going all the way down the left arm into the forearm and numbness in the ulnar 2 digits. The pain is quite severe. The next morning she stated that she had to go to the emergency room. She is brought to the emergency room and worked up for any type of cardiac events. She states that she has a history significant for chronic neck pain really is not had much in way of radicular complaints in the arm till this episode. The pain in the arm itself has mostly subsided but still has numbness in the ulnar 2 digits. She does not feel that the arm is weaker. She has not noticed any progressive loss of coordination or change in balance or gait. An MRI is available for review. She denies any other numbness, tingling, paresthesias. Allergies Allergy/AdvReac Type Severity Reaction Status Date / Time No Known Allergies Allergy Verified 09/13/21 09:45 Home Medications Medication Instructions Recorded Confirmed Type atorvastatin 10 mg tablet 10 mg PO QAM 07/06/20 09/13/21 History levothyroxine 75 mcg tablet 75 mcg PO QAM 07/06/20 09/13/21 History pantoprazole 20 mg tablet,delayed 20 mg PO DAILY 07/06/20 09/13/21 History release albuterol sulfate 90 mcg/actuation 1 inh INHALATION Q6H PRN #8.5 g 07/08/20 09/13/21 Rx aerosol inhaler acetaminophen 325 mg tablet 325 mg PO Q6H PRN 09/13/21 09/13/21 History albuterol sulfate 90 mcg/actuation 2 puff INHALATION Q6H PRN 09/13/21 09/13/21 History aerosol inhaler (Ventolin HFA) cyanocobalamin (vitamin B-12) 100 100 mcg PO QAM 09/13/21 09/13/21 History mcg tablet diclofenac sodium 1 % gel topical 2 g TOPICAL QID PRN 09/13/21 09/13/21 History kit fluticasone fur. 100 mcg-umeclid 1 inh INHALATION QAM 09/13/21 09/13/21 History 62.5 mcg-vilant 25 mcg inhalat.powder (Trelegy Ellipta) ketoconazole 2 % shampoo 2 ea TOPICAL [id number] 09/13/21 09/13/21 History losartan 25 mg tablet 25 mg PO QAM 09/13/21 09/13/21 History Patient History Medical History Alcohol dependence COPD (chronic obstructive pulmonary disease) GERD (gastroesophageal reflux disease) Hepatic steatosis HLD (hyperlipidemia) Hypertension Hypothyroidism SANDRA (obstructive sleep apnea) Tobacco abuse disorder Surgical History History of colonoscopy History of esophagogastroduodenoscopy (EGD) History of thoracotomy Family History Mother Pancreatic cancer Father , fatal [place] @ 42 Myocardial infarction Social History Smoking Status: Former smoker Cigarettes Per Day: 10; Second Hand Exposure: No; Do You Dip or Chew Tobacco: No; Tobacco Cessation Education Requested by Patient: No Hx Alcohol Use: Yes Alcohol type: beer Hx Substance Use: Yes Last Used Substance: Hours (ago) Last Used Substance Other:: Last February Preferred Language: Indian Communication Ability: Effective Hog Buyer Required: No Beliefs That Will Affect Care: None marital status: Current Living Situation: Spouse Other Information That Helps Us Care for You: No Feels Safe at Home: Yes Safety Concerns: Feels Safe At This Time Assistive Devices: None Physical Exam Physical Exam: On exam she is alert and oriented. She moves easily about the room. She has decreased lateral rotation to the left-hand side and limited neck extension. Her upper extremity motor exam reveals no focal atrophy or strength 5 out of 5 to detailed muscle testing without exception. She has negative Michael's and Phalen signs. She has positive stile sign at the left elbow reproducing the tingling in the ulnar 2 digits. Babinski is negative there is no clonus. She is mildly tender palpation along the neck itself. She has well- preserved range of motion of the left shoulder with no impingements. Results & Data ([facility]) Vital Signs (Past 12 Hours) Vital Signs Temp Pulse Pulse Resp BP Pulse Ox Pulse Ox 09/15/21 07:36 36.8 C 75 15 131/71 92 09/15/21 03:11 36.4 C L 81 16 119/57 L 94 09/15/21 00:00 95 09/14/21 23:51 36.5 C 76 16 117/57 L 95 09/14/21 22:18 82 Diagnostic Findings MRI of the cervical spine performed recently is available for review. This reveals multilevel spondylosis. There is severe left neural foraminal stenosis at C3-4 and C4. There is bilateral foraminal stenosis at C5-6 with significant disc base collapse as well.
--- NOTE | 2021-09-15 11:51 | Electrocardiogram Report ---
Test Reason : Blood Pressure : / mmHG Vent. Rate : 102 BPM Atrial Rate : 102 BPM P-R Int : 122 ms QRS Dur : 086 ms QT Int : 354 ms P-R-T Axes : 078 045 086 degrees QTc Int : 461 ms Sinus tachycardia Otherwise normal ECG When compared with ECG of 13-SEP-2021 08:49, No significant change was found Confirmed by Lio Landry ([id number]) on 09/15/2021 11:51:02 AM Referred By: REFERRED SELF Confirmed By:Lio Landry
--- NOTE | 2021-09-15 12:45 | Discharge Summary ---
Date of Service September 15, 2021 Admission HPI Per Admitting Provider This is a 66-year-old female who has significant past medical history of HTN, HLD, COPD, SANDRA, former tobacco abuse, alcohol dependence, left apical pulmonary nodule, hepatic steatosis, history of spontaneous pneumothorax requiring thoracotomy who presents to ED secondary to left upper extremity pain since 6 PM last evening. She said the pain came out of nowhere. Pain is located in her left shoulder region and radiates to her left elbow. She did not get any sleep last evening. She also complains of numbness and tingling in her left hand and fingers 1 through 3. She denies any associated weakness but does have difficulty lifting her arm beyond 90 degrees. She denies any recent trauma or injury. She states that she is disabled and therefore she does not lift anything significantly heavy. She is disabled secondary to chronic problems in her low back. She denies any similar pain before. She describes it as a sharp stabbing pain that, "grabs her." Pain when it comes on as a 10 out of 10. She describes it as burning. Again she states it radiates to her left elbow. She denies any associated shortness of breath, palpitations, nausea or diaphoresis. She did try [id number] ibuprofen at home without any significant relief. Of significance that she does have known cervical spine disease in which she follows Dr. Rodriguez for spinal injections. Her most recent MRI in August 2020 revealed degenerative spondylosis of the mid cervical spine with moderate thecal sac narrowing at C5-6 and severe foraminal stenosis bilaterally at C3-4 on the left at C3-4 and bilaterally at C5-6. Her last injection was approximately 1 month ago. Typically she has pain at the base of her neck but denies any pain radiating to her extremities. She further denies any numbness and tingling in regards to her chronic neck pain. She does admit to frequent bouts of pneumonia this past year. Her most recent episode was in August when she finished a course of antibiotics and Medrol Dosepak around 20 August. Otherwise she has been in good health and denies any fever, chills, sweats, lightheadedness, syncope, chest pain, shortness breath at rest, palpitations, hemoptysis, cough, nausea, vomiting, abdominal pain, dysuria, increased urgency or frequency with urination, melena or hematochezia. Her appetite is otherwise been normal. She does have history of tobacco abuse which she quit a little over a year ago. She does drink 4-5 light beers daily. Her last beer was around 4 PM last evening. She has gone periods of time without alcohol including when she returned home from [facility] this past winter and her and her abstained for 2 months without any issues with withdrawal. She does have a prior history of smoking marijuana her last use was in February. She does have known COPD for which she is controlled on Trelegy. She states that she uses her rescue inhaler approximately 2 times a week but has not needed it recently. She does have chronic dyspnea on exertion but feels this is unchanged. In ED patient made hemodynamically stable although she was tachycardic. Initial lab work revealed a mild leukocytosis of 15 K, CBC and CMP otherwise generally unremarkable except for mild hyperglycemia at 152. Her troponin x2 was negative. EKG revealed sinus tachycardia but did not reveal any ST or T wave changes. Her alcohol level was negative. In ED patient did receive IV Ativan along with IV morphine. Initially there was concern that maybe tachycardia was secondary to withdrawal and that is why the Ativan and chlordiazepoxide was administered. She was also ministered IV morphine for pain. When pain arrived to hospital she was on room air; however after given IV morphine she did desaturate requiring 2 L of oxygen to maintain normal saturations. She also did desaturate on ambulatory trial. Shoulder x-ray and humerus x-ray did not reveal any acute fracture but did reveal moderate shoulder arthritis. Chest x-ray is negative for acute disease. Chest CT was negative for PE but did reveal a stable apical left upper lobe pulmonary nodule. Admission Exam Per Admitting Provider Constitutional: WD/WN, vitals as above, NAD, sitting up in bed, pleasant, conversing easily Head: Normocephalic, Atraumatic Eyes: PERRL, conjunctivae normal, anicteric sclerae ENMT: external ear and nose normal, oropharynx normal Neck: trachea midline, no thyromegaly normal visual inspection Respiratory: normal respiratory effort, diminished breath sounds at bases, Lungs clear to auscultation, no wheeze, rales, rhonchi. Normal insp/exp effort, no accessory muscle use Cardiovascular: RRR, no murmur, no edema Vessels: no JVD or carotid bruit Chest: normal inspection of chest Abdomen: normal bowel sounds, soft, nontender, no hepatosplenomegaly Musculoskeletal: no cyanosis or clubbing, AROM x 4, difficulty with L lateral arm raise and abd to L shoulder, pain to palpation to cervical vertebral processes along with paraspinal musculature, intermittent, "jabbing," pains witnessed during exam Skin: no rashes, warm and dry normal turgor Neurologic: PERRL, EOMI, accommodation nl, no face palsy, no dysarthria CN's II-XI intact bilaterally and moves all extremities Psychiatric: A+Ox3, euthymic affect Principal Diagnosis Left upper extremity pain, cervical spine disease New diagnosis of diabetes Discharge Exam Constitutional: WD/WN, NAD Head: Normocephalic, Atraumatic Eyes: PERRL, EOMI, conjunctivae normal, anicteric sclerae ENMT: external ear and nose normal, oropharynx normal Neck:supple Respiratory: normal respiratory effort, Lungs clear to auscultation, no wheeze, rales, rhonchi. Normal insp/exp effort, no accessory muscle use Cardiovascular: RRR, no murmur, no edema Vessels: no JVD or carotid bruit Chest: normal inspection of chest Abdomen: normal bowel sounds, soft, nontender Musculoskeletal: able to move extremities including LUE (much improved from previous) Skin: no rashes, warm and dry normal turgor Neurologic: PERRL, EOMI,no face palsy, no dysarthria, moves all extremities Psychiatric: A+Ox3, euthymic affect Discharge Data Allergies Allergy/AdvReac Type Severity Reaction Status Date / Time No Known Allergies Allergy Verified 09/13/21 09:45 Consultations 09/13/21 13:45 ED Decision to Admit Stat 09/14/21 10:32 Consult Orthopedic Surgery Routine Ordered Studies 09/13/21 11:29 CT angio chest PE protocol Stat IMPRESSION: 1. There is no evidence of pulmonary embolus in the main, lobar, or segmental pulmonary arteries. 2. Advanced emphysema. 3. Airspace opacities at the left lung base likely represent segmental ate lectasis. Correlate clinically for evidence of an infectious/inflammatory pneumonitis. 4. There is a 5 mm left apical pulmonary nodule, which is unchanged from 09/03/2020. Continued follow-up is recommended as per the Fleischner criteria. 5. Additional findings as above. 05/11/22 15:07 MR cervical spine wo con Routine IMPRESSION: 1. Multilevel discogenic degeneration with advanced facet arthrosis as detailed above. 2. Mild central canal stenosis at C5-C6 with moderate to severe multilevel neural foraminal narrowing. 3. Mild marrow edema involving the left C4-C5 facets, likely degenerative. 4. Normal signal of the cervical spinal cord. Hospital Course (1) Left arm pain: (2) Cervical spine disease: (3) Hypoxia: (4) COPD (chronic obstructive pulmonary disease): (5) Hypertension: (6) Alcohol dependence: This is a 66-year-old female who has significant past medical history of HTN, HLD, COPD, SANDRA, former tobacco abuse, alcohol dependence, left apical pulmonary nodule, hepatic steatosis, history of spontaneous pneumothorax requiring thoracotomy who presents to ED secondary to left upper extremity pain since 6 PM last evening. Acute nontraumatic left arm pain Known cervical spine disease Cervical spine radiculopathy Admitted to telemetry for further monitoring Initial concern for admission with hypoxia due to narcotic administration as well as left upper extremity pain with heart disease risk factors After further interview, questioning and physical exam does appear that patient is experiencing left sided cervical radicular symptoms Her serial EKG x2 and troponins has been negative thus far, I do not feel this is cardiac in nature but will cycle trops for completeness She continued to have intermittent sharp and burning pain to left shoulder with radiation to left elbow and numbness and tingling to left fingers 1 [address] Rodriguez for cervical spine injections Most recent MRI on 08/14/2020 revealed degenerative spondylosis of mid cervical spine with moderate thecal sac narrowing at C5-6 and severe foraminal stenosis bilaterally at C3-4, on the left at C4-5 and bilaterally at C5-6 Shoulder x-ray and left humerus x-ray are negative for fracture but did reveal shoulder osteoarthritis Cervical spine MRI obtained IMPRESSION: 1. Multilevel discogenic degeneration with advanced facet arthrosis as detailed above. 2. Mild central canal stenosis at C5-C6 with moderate to severe multilevel neura l foraminal narrowing. 3. Mild marrow edema involving the left C4-C5 facets, likely degenerative. 4. Normal signal of the cervical spinal cord. Ortho spine consulted given abnormal imaging -recommend to continue with PT, pain management for now 09/14 -pain much improved, also mobility of the upper extremity, patient can now raise her arms and move her arms without much difficulty -Seen by PT, recommend to use cane for ambulation (which she already has at home) Hypoxia - resolved COPD Likely in setting of narcotic administration We will try to avoid IV narcotic medications due to underlying COPD No acute exacerbation Continue Trelegy, as needed albuterol New dg. of DM type 2 Hgb A1c 6.5% - pt will need to follow up w/ pcp lifestyle modifications encouraged HTN bp now normalized likely in setting of pain continue losartan HLD continue statin Hypothyroidism elevated tsh, normal t4 continue levothyroxine recommend repeat TSH/t4 as OP in 4 weeks Known ETOH dependence 4-5light beers daily, last 4pm last evening pt states she has gone 2 months w/o ETOH and no issue w/ withdrawal AWSS protocol, prn IV ativan daily thiamine, folic acid Former tobacco abuse quit 1 year ago DVT ppx: SQ Lovenox PCP: Dr. Pena Total Time Total Time Spent Total Time Spent (In Minutes): 40 Discharge Plan Discharge Items Patient Disposition: Home - Self-Care Reason For Visit: ARM PAIN Discharge Diagnosis: Left upper extremity pain, cervical spine disease New diagnosis of diabetes Activity: Per Instructions section Non-emergency contact: Primary Care Provider, Specialist and Pain Management Call non-emergency contact if: you have any medication questions and your symptoms worsen Follow-up/Referrals: Liliane Pena DO [Primary Care Provider] - (Date & Time 09/20/2021 11:10 AM Provider Liliane Pena DO Department Family Medicine [facility] ) Diet: Heart Healthy Addtl Attending Provider Instructions: Follow up with your primary care doctor, and pain management doctor. The appointment with your primary care doctor was scheduled for you for September 20. For pain, gabapentin was prescribed for you. Discuss with your primary care doctor and/ or pain management doctor if you should continue this medication. Your hemoglobin A1c was also elevated, which indicates diabetes. Discuss this with your primary care physician. Pending Studies at Discharge: No Stand-Alone Forms: My [employer], Smoking Cessation Medications and DC Order Prescriptions: New gabapentin 100 mg Capsule 100 mg PO TID Qty: 20 RF: 0 Continued atorvastatin 10 mg tablet 10 mg PO QAM RF: 0 pantoprazole 20 mg tablet,delayed release (DR/EC) 20 mg PO DAILY RF: 0 levothyroxine 75 mcg tablet 75 mcg PO QAM RF: 0 albuterol sulfate 90 mcg/actuation HFA aerosol inhaler 1 inh inhalation Q6H PRN (Reason: shortness of breath or wheezing) Qty: 8.5 RF: 0 acetaminophen 325 mg Tablet 325 mg PO Q6H PRN (Reason: Pain) RF: 0 ketoconazole 2 % Shampoo 2 ea TOPICAL 3XWK RF: 0 cyanocobalamin (vitamin B-12) 100 mcg Tablet 100 mcg PO QAM RF: 0 losartan 25 mg tablet 25 mg PO QAM RF: 0 albuterol sulfate [Ventolin HFA] 90 mcg/actuation Hfa Aerosol Inhaler 2 puff INHALATION Q6H PRN (Reason: Adequate Ventilation) RF: 0 Diclo Gel 1 % Kit 2 g TOPICAL QID PRN (Reason: Pain) RF: 0 Trelegy Ellipta 100-62.5-25 mcg blister with device 1 inh INHALATION QAM RF: 0 Discharge Orders: Discharge Order (Routine); Ordered 09/15/21 Ordered By: Fabrizio Aceves/Other Patient Handouts: A1C Admission Data Admit Date/Time: 09/13/21 14:05 Attending Provider: Fabrizio Langford Admit Provider: Gabe Chen Primary Care Provider: Liliane Pena Other Providers: Gabe Chen ; Morales Greenfield
== END 2021-09-15 14:00 | disposition home or self-care (01) ==
LOC: 2S 08:38 → ED 08:38 → SUATTDRO 14:05 → 2S 15:42

== ENCOUNTER 2022-08-08 08:08 | Inpatient (IN) ==
--- NOTE | 2022-07-23 14:37 | PAT Medication Instructions ---
Medication Instructions Date of Service July 23, 2022 Home Medications Medication Instructions Recorded albuterol sulfate 90 mcg/actuation 1 inh inhalation Q6H PRN shortness 07/08/20 aerosol inhaler of breath or wheezing #8.5 grams atorvastatin 10 mg tablet 10 mg PO QAM levothyroxine 75 mcg tablet 75 mcg PO QAM pantoprazole 20 mg tablet,delayed release 20 mg PO QAM albuterol sulfate 90 mcg/actuation aerosol inhaler 1 inh inhalation Q6H PRN shortness of breath or wheezing acetaminophen 325 mg tablet 650 mg PO BID cyanocobalamin (vitamin B-12) 100 mcg tablet 100 mcg PO QAM fluticasone fur. 100 mcg-umeclid 62.5 mcg-vilant 25 mcg inhalat.powder (Trelegy Ellipta) 1 inh inhalation QAM aspirin 81 mg capsule 81 mg PO QAM diclofenac sodium 1 % topical gel 2 g topical QID PRN neck pain metoprolol succinate 50 mg tablet,extended release 24 hr 50 mg PO QAM ASK your surgeon for instructions diclofenac sodium 1 % topical gel 2 g topical QID PRN neck pain ASK your prescriber and surgeon aspirin 81 mg capsule 81 mg PO QAM DO NOT take the morning of surgery cyanocobalamin (vitamin B-12) 100 mcg tablet 100 mcg PO QAM Take morning of surgery With a small sip of water, OTHERWISE NOTHING TO EAT OR DRINK AFTER MIDNIGHT: atorvastatin 10 mg tablet 10 mg PO QAM levothyroxine 75 mcg tablet 75 mcg PO QAM pantoprazole 20 mg tablet,delayed release 20 mg PO QAM albuterol sulfate 90 mcg/actuation aerosol inhaler 1 inh inhalation Q6H PRN shortness of breath or wheezing (use if needed; please bring rescue inhaler with you to hospital day of surgery if possible) acetaminophen 325 mg tablet 650 mg PO BID fluticasone fur. 100 mcg-umeclid 62.5 mcg-vilant 25 mcg inhalat.powder (Trelegy Ellipta) 1 inh inhalation QAM metoprolol succinate 50 mg tablet,extended release 24 hr 50 mg PO QAM Take evening before surgery albuterol sulfate 90 mcg/actuation aerosol inhaler 1 inh inhalation Q6H PRN shortness of breath or wheezing (if needed) acetaminophen 325 mg tablet 650 mg PO BID Other Notes If you have any questions please call us at [phone] or [phone] or [phone] or [phone]
--- NOTE | 2022-07-27 12:48 | Anesthesiology Consultation ---
Date of Service July 27, 2022 Assessment & Plan (1) Encounter for pre-operative examination: - clearance note preceded optimization form, awaiting PCP comment specifically on respiratory status. - PCP clearance 07/30/22 [facility]: "...scheduled for neck surgery...all labs, EKG, and chest xray are normal...cleared for surgery..." - Case discussed in detail with Dr. Carlton including dyspnea with exertion and rescue inhaler use, he advised patient's PCP to comment if patient is optimized from respiratory standpoint for surgery. - excessive alcohol intake (6-9 beers nightly). Chart Review Chart Review: Pending: Refer to Additional Notes / Consult section and Patient seen in Pre Admission Testing Teaching & Discussion Pre-Anesthesia Teaching/Discussion Notes: Instructed NPO after midnight before surgery, except medications with 15 cc of water. Medication instructions provided according to the PAT guidelines. History Surgery Operation Date: 08/10/22 13:25 Proposed Procedures p C5-C7 Anterior Cervical Discectomy and Fusion, C6 Corpectomy, Spinal Cord Monitoring - Morales Greenfield DO Height/Weight Height: 5 ft 3 in Weight: 68.946 kg Allergies Allergy/AdvReac Type Severity Reaction Status Date / Time nickel Allergy Mild Rash Verified 07/23/22 13:36 Medications Home Medications Medication Instructions Recorded Confirmed Last Taken atorvastatin 10 mg tablet 10 mg PO QAM 07/06/20 07/23/22 09/12/21 levothyroxine 75 mcg tablet 75 mcg PO QAM 07/06/20 07/23/22 09/12/21 pantoprazole 20 mg tablet,delayed 20 mg PO QAM 07/06/20 07/23/22 09/12/21 release albuterol sulfate 90 mcg/actuation 1 inh inhalation Q6H PRN shortness 07/08/20 07/23/22 09/12/21 aerosol inhaler of breath or wheezing #8.5 grams acetaminophen 325 mg tablet 650 mg PO BID 09/13/21 07/23/22 Unknown cyanocobalamin (vitamin B-12) 100 100 mcg PO QAM 09/13/21 07/23/22 09/12/21 mcg tablet fluticasone fur. 100 mcg-umeclid 1 inh inhalation QAM 09/13/21 07/23/22 09/12/21 62.5 mcg-vilant 25 mcg inhalat.powder (Trelegy Ellipta) aspirin 81 mg capsule 81 mg PO QAM 07/23/22 07/23/22 Unknown diclofenac sodium 1 % topical gel 2 g topical QID PRN neck pain 07/23/22 07/23/22 Unknown metoprolol succinate 50 mg 50 mg PO QAM 07/23/22 07/23/22 Unknown tablet,extended release 24 hr Past Medical History Medical History (Updated 07/27/22 @ 15:06 by Priscila Garcia PA-C) Alcohol dependence per pt drinks 6-9 beers a night Chronic back pain Chronic neck pain COPD (chronic obstructive pulmonary disease) inhaler daily and prn with exertion such as a flight of stairs, average 1-2 times weekly GERD (gastroesophageal reflux disease) controlled, stable per pt Hepatic steatosis HLD (hyperlipidemia) Hypertension controlled, stable per pt Hypothyroidism SANDRA (obstructive sleep apnea) pt states she had sleep study test done was ok--no device Pleurisy last episode 3 yrs ago Tobacco abuse disorder Patient denies h/o stroke, seizures, heart attack, heart failure, DM, blood clots or blood transfusions. Exercise / Class Metabolic Activity II 4-5 Yardwork/Stairs/Walk up hill (SOB with 1 FOS, denies chest discomfort) Past Family History Family History Mother Pancreatic cancer Father , fatal MS @ 42 Myocardial infarction Other No family history of adverse response to anesthesia Past Surgical History Surgical History History of bilateral tubal ligation History of colonoscopy History of esophagogastroduodenoscopy (EGD) History of lumbar surgery History of thoracotomy 1980 @ [facility], [place]--and right lung with chest tube placement--per pt was due to intermittent spontaneous pneumothorax of right lung---pt states she gets intermittent pleurisy (last time was 3 yrs ago) History of tooth extraction all top teeth removed and some on bottom History of wisdom tooth extraction Past Anesthesia History No Hx of Anesthesia Complications and No Family Hx of Anesthesia Complications History of PONV No Hx of PONV and No Hx of Motion Sickness Social History Smoking Status: Former smoker tobacco type: e-cigarettes Smoking cigarettes per day: vaps intermittently (advised on policy) Do You Dip or Chew Tobacco: No Smoking End Date: quit 2 yrs ago Hx Alcohol Use: Yes (4-5 beers a day) Alcohol type: beer alcohol intake frequency: 3 or more drinks per day (6-9 drinks daily) Hx Substance Use: Yes (smokes marijuana (advised on policy)) substance use type: marijuana Last Used Substance: Hours (ago) Last Used Substance Other:: uses every night to help sleep Review of Systems Patient denies chest pain, fever, chills, or palpitations. Physical Exam Vital Signs Vitals BP 133/84 P 86 SP02 95% on RA RESP 17 Physical Full cervical extension range of motion without pain TMD 3.5 finger breadths Mallampati Score 2 Dentition: denies chipped or loose teeth, missing upper teeth; denies implants or bridges Lungs: normal respiratory effort. Good air movement, clear throughout to auscultation, no adventitious breath sounds Cardiac: regular rate and rhythm, no murmurs noted Carotid arteries: negative bruit bilat Lab Results Anesthesia Preop Results Results Anesthesia Widget: WBC 6.79 K/ul (4.8-10.8) 07/27/22 Hgb 14.3 g/dl (12.0-16.0) 07/27/22 Hct 42.0 % (37.0-47.0) 07/27/22 Plt 330 K/uL (130-400) 07/27/22 Na 141 mmol/L (136-145) 07/27/22 K 4.5 mmol/L (3.5-5.1) 07/27/22 Cl 107 mmol/L (98-107) 07/27/22 CO2 27 mmol/L (21-32) 07/27/22 BUN 15 mg/dl (6-23) 07/27/22 Creat 0.88 mg/dl (0.6-1.2) 07/27/22 Glucose Level 85 mg/dl (70-99(Fasting)) 07/27/22 PT 10.3 Seconds (9.0-12.0) 07/27/22 PTT 27.4 Seconds (21.0-31.0) 07/27/22 INR 1.0 (0.9-1.1) 07/27/22 Urine Color Yellow 07/27/22 Urine Appearance Clear (Clear) 07/27/22 Urine pH 5.0 (4.5-7.5) 07/27/22 Urine Specific [place] 1.019 (1.000-1.030) 07/27/22 Urine Protein Negative (Negative) 07/27/22 Urine Glucose (UA) Negative (Negative) 07/27/22 Urine Ketones Negative (Negative) 07/27/22 Urine Blood Negative (Negative) 07/27/22 Urine Nitrite Negative (Negative) 07/27/22 Urine Bilirubin Negative (Negative) 07/27/22 Urine Urobilinogen Negative (Negative) 07/27/22 Urine Leukocyte Esterase Negative (Negative) 07/27/22 Blood Type AB Negative 07/27/22 Antibody Screen NEGATIVE 07/27/22 Testing Electrocardiogram Date: 07/27/22 NSR, rate 78 bpm Echocardiogram Date: 07/26/20 EF 65-69% Normal LV wall motion Grade I diastolic dysfunction Mild aortic valve sclerosis Mild tricuspid regurgitation Stress Test Date: 11/18/20 Pharmacologic MPHR 110% Negative for inducible ischemia Occasional supraventricular ectopy was noted with pharmacologic stress EF > 70% Borderline cLVH Mild aortic valve sclerosis, aortic stenosis absent Grade I diastolic dysfunction Cervical Spine Date: 09/13/21 MRI 1. Multilevel discogenic degeneration with advanced facet arthrosis as detailed above. 2. Mild central canal stenosis at C5-C6 with moderate to severe multilevel neural foraminal narrowing. 3. Mild marrow edema involving the left C4-C5 facets, likely degenerative. 4. Normal signal of the cervical spinal cord. Other Testing Chest CTA 09/13/21 Thyroid: Imaged portions of the thyroid gland are normal in size and attenuation. Thoracic aorta: There is atherosclerotic calcification of the thoracic aorta, which is normal in caliber and demonstrates standard 3-vessel arch anatomy. No dissection is seen. There is moderate stenosis of the left subclavian artery at the thoracic outlet. There is approximately 50% luminal narrowing of the left common carotid artery seen on image #288. Pulmonary vasculature: The pulmonary trunk is normal in caliber. There are no filling defects identified in main, lobar, or segmental pulmonary branches to suggest pulmonary embolus. Heart: The heart is normal in size noting trace pericardial effusion. Lungs and pleural spaces: Advanced and edematous change is again noted. No pleural effusion is identified. There is bibasilar scarring/atelectasis. More focal multifocal airspace opacities are seen at the left lung base. The trachea and central airways are clear. A 5 mm left upper lobe pulmonary nodule image # 244 is unchanged. Axillae: There is no axillary lymphadenopathy. Upper abdomen: A 1.4 cm left adrenal nodule is unchanged, as is a 12 mm hypodensity in the left lobe of the liver on image #23. Partially visualized upper abdominal viscera is otherwise grossly unremarkable. Skeletal structures: The skeletal structures are osteopenic. There is mild lumbosacral spondylosis and scoliosis. There is a mild chronic compression deformity of L1. No lytic or blastic bony lesions are seen. Degenerative change is noted in the shoulders. IMPRESSION: 1. There is no evidence of pulmonary embolus in the main, lobar, or segmental pulmonary arteries. 2. Advanced emphysema. 3. Airspace opacities at the left lung base likely represent segmental atelectasis. Correlate clinically for evidence of an infectious/inflammatory pneumonitis. 4. There is a 5 mm left apical pulmonary nodule, which is unchanged from 09/03/2020. Continued follow-up is recommended as per the Fleischner criteria. 5. Additional findings as above. COVID-19 Risk Screen Screening Information COVID-19 Screen Date: 07/27/22 Exposure 21 Days Family/Household +COVID Last 21 Days: No Exposure 10 Days Any COVID Exposure Last 10 Days: No Symptoms Last 10 Days Experienced COVID Sx Last 10 Days: No + COVID 0-90 Days COVID + in Last 0-90 Days: No
[~2022-08-08 08:08] MED LIST: ACETAMINOPHEN 500 MG TAB PO SCH; CeleBREX 200 MG CAP PO SCH; DexMEDEtomidine HCL IV 100 MCG/ML VIAL IV ONE; GABAPENTIN 300 MG CAP PO SCH; LR 15ML/HR IV SCH; ceFAZolin 2000MG 2,000 MG/15 ML SYR IV SCH
[2022-08-08] MEDS ORDERED: fentaNYL citrate PF 100 MCG/2 ML VIAL ONE ×3 (08:49→14:55)
[2022-08-08] MEDS ORDERED: LIDOCAINE 2% MPF LOCAL 5 ML VIAL ONE (08:49)
[2022-08-08] MEDS ORDERED: PROPOFOL IV EMULSION 10 MG/ML 20 ML VIAL IV ONE ×3 (08:49→15:36)
[2022-08-08] MEDS ORDERED: MIDAZOLAM HCL 1 MG/ML 2ML VIAL ONE ×4 (08:49→14:05)
[2022-08-08] MEDS ORDERED: KETAMINE 50 MG/5 ML SYRINGE ONE ×2 (08:49→14:05)
[2022-08-08] MEDS ORDERED: ROCURONIUM BROMIDE 10 MG/ML 5 ML VIAL IV ONE ×3 (08:49→14:39)
[2022-08-08] MEDS ORDERED: PROMETHAZINE HCL 6.25 MG in SODIUM CHLORIDE 0.9% 50 ML IV PRN (09:22)
[2022-08-08] MEDS ORDERED: ONDANSETRON INJ 2 MG/ML 2 ML VIAL IV PRN ×2 (09:22→16:28)
[2022-08-08] MEDS ORDERED: ATROPINE SULFATE 0.1 MG/ML 10ML SYR IV PRN (09:22)
[2022-08-08] MEDS ORDERED: ePHEDrine sulfate 50 MG/ML AMP IV PRN (09:22)
[2022-08-08] MEDS ORDERED: fentaNYL citrate PF 100 MCG/2 ML VIAL IV PRN (09:22)
--- NOTE | 2022-08-08 09:58 | History & Physical Bridge Note ---
Date of Service August 08, 2022 History & Physical Bridge Note I have examined the patient, reviewed the History & Physical and in the interval since the performance of the History & Physical I have noted the following changes of clinical significance: no changes noted
--- NOTE | 2022-08-08 09:59 | History & Physical Report ---
Date of Service August 08, 2022 Assessment & Plan (1) Myelopathy concurrent with and due to spinal stenosis of cervical region: Plan: C5-C7 anterior cervical discectomy and fusion, cervical C6 corpectomy History of Present Illness Chief Complaint: Neck and arm pain Primary Care Provider: Liliane Pena DO This is a 66-year-old female who presents with chronic persistent neck and arm pain after failing course of nonoperative care she is here for surgical invention. Allergies Allergy/AdvReac Type Severity Reaction Status Date / Time venlafaxine Allergy Severe severe Verified 08/08/22 08:29 cough, throat tightness nickel Allergy Mild Rash Verified 08/08/22 08:29 Home Medications Medication Instructions Recorded Confirmed Type atorvastatin 10 mg tablet 10 mg PO QAM 07/06/20 08/08/22 History levothyroxine 75 mcg tablet 75 mcg PO QAM 07/06/20 08/08/22 History pantoprazole 20 mg tablet,delayed 20 mg PO QAM 07/06/20 08/08/22 History release albuterol sulfate 90 mcg/actuation 1 inh inhalation Q6H PRN shortness 07/08/20 08/08/22 Rx aerosol inhaler of breath or wheezing #8.5 grams acetaminophen 325 mg tablet 650 mg PO BID 09/13/21 08/08/22 History cyanocobalamin (vitamin B-12) 100 100 mcg PO QAM 09/13/21 08/08/22 History mcg tablet fluticasone fur. 100 mcg-umeclid 1 inh inhalation QAM 09/13/21 08/08/22 History 62.5 mcg-vilant 25 mcg inhalat.powder (Trelegy Ellipta) aspirin 81 mg capsule 81 mg PO QAM 07/23/22 08/08/22 History diclofenac sodium 1 % topical gel 2 g topical QID PRN neck pain 07/23/22 History metoprolol succinate 50 mg 50 mg PO QAM 07/23/22 08/08/22 History tablet,extended release 24 hr Past Med/Surg History Medical History (Updated 08/08/22 @ 09:59 by Morales Greenfield DO) Alcohol dependence per pt drinks 6-9 beers a night Chronic back pain Chronic neck pain COPD (chronic obstructive pulmonary disease) inhaler daily and prn with exertion such as a flight of stairs, average 1-2 times weekly GERD (gastroesophageal reflux disease) controlled, stable per pt Hepatic steatosis HLD (hyperlipidemia) Hypertension controlled, stable per pt Hypothyroidism SANDRA (obstructive sleep apnea) pt states she had sleep study test done was ok--no device Pleurisy last episode 3 yrs ago Tobacco abuse disorder Surgical History History of bilateral tubal ligation History of colonoscopy History of esophagogastroduodenoscopy (EGD) History of lumbar surgery History of thoracotomy 1980 @ [facility]--and right lung with chest tube placement--per pt was due to intermittent spontaneous pneumothorax of right lung---pt states she gets intermittent pleurisy (last time was 3 yrs ago) History of tooth extraction all top teeth removed and some on bottom History of wisdom tooth extraction Family History Mother Pancreatic cancer Father , fatal ID @ 42 Myocardial infarction Other No family history of adverse response to anesthesia Social History Smoking Status: Former smoker Cigarettes Per Day: vaps intermittently (advised on policy); Smoking End Date: quit 2 yrs ago; Second Hand Exposure: No; Do You Dip or Chew Tobacco: No; Tobacco Cessation Education Requested by Patient: No Hx Alcohol Use: Yes (4-5 beers a day) Alcohol type: beer Hx Substance Use: Yes (smokes marijuana (advised on policy)) Last Used Substance: Hours (ago) Last Used Substance Other:: uses every night to help sleep Preferred Language: Welsh Communication Ability: Effective Transportation Project Manager Required: No Beliefs That Will Affect Care: None marital status: Current Living Situation: Spouse Other Information That Helps Us Care for You: No Feels Safe at Home: Yes Safety Concerns: Feels Safe At This Time Assistive Devices: Denture - Upper and Glasses Physical Exam Physical Exam: Patient is alert and oriented Heart regular rhythm Lungs clear Results & Data Results & Data Vital Signs (Past 12 Hours) Vital Signs Temp Pulse Resp BP Pulse Ox O2 Del Method 08/08/22 08:34 36.8 C 80 24 142/86 H 95 Room Air
[2022-08-08] MEDS ORDERED: ceFAZolin 330 MG/ML 1 GM VIAL ONE ×3 (10:13→15:04)
[2022-08-08] MEDS ORDERED: FLOSEAL HEMOSTATIC MATRIX 10ML TOP ONE ×3 (11:07→15:34)
[2022-08-08] MEDS ORDERED: GLYCOPYRROLATE 0.2 MG/ML VIAL ONE ×3 (11:33→15:20)
[2022-08-08] MEDS ORDERED: DEXAMETHASONE SOD INJ 4 MG/ML VIAL ONE ×2 (11:33→15:04)
[2022-08-08] MEDS ORDERED: ONDANSETRON INJ 2 MG/ML 2 ML VIAL ONE (11:33)
[2022-08-08] MEDS ORDERED: NEOSTIGMINE METHYLSULFATE 1 MG/ML 10ML VIAL ONE (11:33)
--- NOTE | 2022-08-08 11:50 | Operative Report ---
Post Operative Report Pre & Post Diagnosis Operation Date: 08/08/22 09:45 Pre-Op Diagnosis: Cervical spinal stenosis with myeloradiculopathy Post-Op Diagnosis: Same I identified the patient and participated in the time-out.: Yes Procedure Operation Date: 08/08/22 09:45 Actual Procedures #1 anterior cervical corpectomy of C6. #2 anterior cervical disease to C5-C7. #3 placement of 20 mm peek cage C5-C7. #4 placement locally harvested morselized autograft combined with I factor interbody cage. #5 application of K2 M plate and screws from C5-C7. Surgeon Morales Greenfield, Cattery Operator Merle Lema Estimated Blood Loss 50 Findings Consistent with Post-Op Diagnosis Specimens Same Indications This is a 67-year-old female who presents above-mentioned diagnosis after failed course of nonoperative care she is here for surgical invention. Description of Procedure Patient was met with identified informed consent obtained. Patient was then taken to the operative suite underwent a patient placed in supine position on the Triston table with head Nam head packager. All bony prominences well- padded eyes inspected to ensure no external pressure placed upon the. This point identified the C6 vertebral body and a transverse incision was placed along the right anterior aspect of the cervical spine overlying this region. Blunt dissection with assistance of bipolar electrocautery was performed down to and exposing the anterior cervical spine from C5-C7. A self-retaining retractors placed. Then performed a complete discectomy of C5-C6 out to the uncal vertebral joints bilaterally followed by C6-C7. [place] distraction pins were then placed in C5 and C7 to distract across the C6 vertebral body. Complete corpectomy was then performed including removal of all posterior annular fibers longitudinal limit bilateral foraminotomies performed. Endplates burred to subcortical bleeding bone and a 21 mm peek cage filled with locally harvested morselized autograft and I factor tapped in position. Distracting pressors removed all anterior osteophytes burred to smooth cortical surface and a K2 M plate and screws applied with the assistance of fluoroscopy. The incision was then copiously irrigated explored to ensure no damage to surrounding structures or remaining bleeding. 10 round GLEN drain inserted. The incision was then closed with 2 Vicryl in a fashion of 4 Monocryl for final skin closure. Steri-Strips and sterile dressings placed. Patient waken taken to PACU stable condition. Please note spinal cord monitoring was utilized at the procedure no changes noted. Lastly Merle Lema was present at the entire procedure and all the patient positioning complex portion of the surgery and final skin closure. I attest to the content of the Intraoperative Record and any orders documented therein. Any exceptions are noted below.
--- NOTE | 2022-08-08 12:04 | Fluoroscopy Report ---
FL cervical 2-3V CLINICAL HISTORY: ACDF C5-7 CORPECTOMY C6 COMPARISON STUDY: None. FLUOROSCOPY TIME: 14 seconds FLUOROSCOPY IMAGES: 3 Ka,r: 3.5 mGy FINDINGS: Anterior cervical discectomy and fusion from C5 through C7 with C6 corpectomy. The hardware appears intact. Endotracheal tube is in place. IMPRESSION: Fluoroscopic assistance as above. ACT 112: Negative or not required by law. Electronically signed by: Nathaniel Echeverria M.D. 08/08/2022 12:03 PM
--- NOTE | 2022-08-08 12:58 | Anesthesiology Progress Note ---
Date of Service August 08, 2022 Anesthesia Post Procedure Vital Signs Vital Signs: Temp Pulse Pulse Resp BP Pulse Ox O2 Del Method 08/08/22 12:50 36.2 C L 70 13 151/85 H 93 Nasal Cannula 08/08/22 12:40 78 21 155/85 H 93 Nasal Cannula 08/08/22 12:30 75 12 149/84 H 93 Nasal Cannula 08/08/22 12:20 81 14 160/85 H 97 Oxymask 08/08/22 12:10 85 16 158/85 H 99 Oxymask 08/08/22 12:04 36.0 C L 90 11 L 183/92 H 99 Oxymask 08/08/22 08:34 36.8 C 80 24 142/86 H 95 Room Air O2 Flow Rate 08/08/22 12:50 3 08/08/22 12:40 3 08/08/22 12:30 3 08/08/22 12:20 5 08/08/22 12:10 7 08/08/22 12:04 10 08/08/22 08:34 Pain Intensity Bilateral Neck: Pain Intensity: 0 Transfer of Care Handoff Completed per policy Notes Mental Status: alert / awake / arousable Patient Amnestic to Procedure: Yes Nausea / Vomiting: adequately controlled Pain: adequately controlled Airway Patency, RR, SpO2: stable & adequate BP & HR: stable & adequate Hydration State: stable & adequate Anesthetic Complications: no major complications apparent
[2022-08-08] MEDS ORDERED: DexMEDEtomidine HCL IV 100 MCG/ML VIAL IV ONE (14:00)
[2022-08-08] MEDS ORDERED: LIDOCAINE 4% MPF LOCAL INJ 5 ML AMP ONE (14:03)
[2022-08-08] MEDS ORDERED: LIDOCAINE VISCOUS 2% 15 ML UDC ONE (14:04)
[2022-08-08] MEDS ORDERED: BUPIVACAINE/EPINEPHRINE 0.5% MPF 1:200,000 30 ML VIAL ONE (14:37)
[2022-08-08] MEDS ORDERED: ePHEDrine sulfate 50 MG/ML SYR ONE (14:39)
[2022-08-08] MEDS ORDERED: PHENYLEPHRINE 100MCG/ML 5ML SYR ONE (14:39)
[2022-08-08] MEDS ORDERED: ePHEDrine sulfate 50 MG/ML AMP ONE (14:40)
--- NOTE | 2022-08-08 15:01 | Communication Note ---
Date of Service: August 08, 2022 Patient was seen by myself in pacu approximately 45min-1hr after arrival. She was lying comfortable in a semirecumbant position with C collar in place. She was comfortable and awake with minimal pain. Her breathing was unlabored and oxygen saturations in the mid 90s on nasal cannula. At that time, I did discharge her from PACU care, awaiting a floor bed. Roughly 1 hr later, I was called by the OR charge nurse that the patient may need to return to the operating room, and that the surgical PA-C was evaluating the patient. Shortly thereafter, I was asked to evaluate the patient by the surgical PA-C as she was having respiratory compromise from a neck hematoma. On arrival, the patient was sitting upright and tachypneic with frequent throat clearing. She was saturating ~88-92% on nasal cannula. I asked staff to immediately prepare for reintubation and discussed awake fiberoptic intubation with the patient. Localization of the airway was provided with nebulized 4% lidocaine and viscous 2% lidocaine gargled. Sedation was provided with precedex, versed, ketamine, and glycopyrrolate. A nasal airway was placed. Fiberoptic bronchoscopy was performed through the mouth, upper airway structures were very swollen. The mendez was identified and 7.0 ETT was placed. ETCO2 was verified and the patient was induced with propofol. Plans were made to transport back to the OR for evacuation hematoma.
[2022-08-08] MEDS ORDERED: SUGAMMADEX SODIUM 200 MG/2 ML VIAL IV ONE (15:32)
[2022-08-08] MEDS ORDERED: ceFAZolin 2000MG 2,000 MG/15 ML SYR IV ONE (15:35)
--- NOTE | 2022-08-08 15:57 | Anesthesiology Progress Note ---
Date of Service August 08, 2022 Anesthesia Post Procedure Vital Signs Vital Signs: Temp Pulse Pulse Pulse Resp BP Pulse Ox 08/08/22 14:27 104 H 18 95 08/08/22 14:00 36.2 C L 91 H 13 190/84 H 97 08/08/22 13:45 36.2 C L 87 15 185/107 H 95 08/08/22 13:30 36.2 C L 83 18 177/90 H 94 08/08/22 13:15 36.2 C L 73 13 134/80 93 08/08/22 13:00 36.2 C L 69 19 138/78 93 08/08/22 12:50 36.2 C L 70 13 151/85 H 93 08/08/22 12:40 78 21 155/85 H 93 08/08/22 12:30 75 12 149/84 H 93 08/08/22 12:20 81 14 160/85 H 97 08/08/22 12:10 85 16 158/85 H 99 08/08/22 12:04 36.0 C L 90 11 L 183/92 H 99 08/08/22 08:34 36.8 C 80 24 142/86 H 95 O2 Del Method O2 Flow Rate FiO2 08/08/22 14:27 100 08/08/22 14:00 Nasal Cannula 3 08/08/22 13:45 Nasal Cannula 3 08/08/22 13:30 Nasal Cannula 3 08/08/22 13:15 Nasal Cannula 3 08/08/22 13:00 Nasal Cannula 3 08/08/22 12:50 Nasal Cannula 3 08/08/22 12:40 Nasal Cannula 3 08/08/22 12:30 Nasal Cannula 3 08/08/22 12:20 Oxymask 5 08/08/22 12:10 Oxymask 7 08/08/22 12:04 Oxymask 10 08/08/22 08:34 Room Air Pain Intensity Bilateral Neck: Pain Intensity: 8 Transfer of Care Handoff Completed per policy Notes Mental Status: see notes below Nausea / Vomiting: see Notes below Pain: see Notes below Airway Patency, RR, SpO2: see Notes below BP & HR: stable & adequate Hydration State: stable & adequate Anesthetic Complications: no major complications apparent Notes: Large hematoma requiring intubation in PACU after initial procedure. Please see supplemental communication notes for details. Given significant airway compromise prior to the hematoma evacuation, the patient remained intubated and sedated to SICU after surgery. She was awakened in the operating room and moved all 4 extremities to command prior to being sedated again for transport to SICU. I have spoken directly with the senior portfolio analyst who will manage the patient's critical care.
--- NOTE | 2022-08-08 15:58 | Operative Report ---
Post Operative Report Pre & Post Diagnosis Operation Date: 08/08/22 09:45 Pre-Op Diagnosis: Postop cervical hematoma Post-Op Diagnosis: Same I identified the patient and participated in the time-out.: Yes Procedure Operation Date: 08/08/22 09:45 Actual Procedures Evacuation of cervical hematoma Surgeon Morales Greenfield DO Surgery Nurse Merle Lema Estimated Blood Loss 10 Findings Consistent with Post-Op Diagnosis Massive amounts of prevertebral clot consistent with postop hematoma. Specimens None Indications This is a 67-year-old female with a history of several hours status post anterior cervical corpectomy. She began noticing difficulty swallowing and difficulty breathing postoperatively while in PACU and we subsequently chose to undergo urgent intubation and stabilization of the airway and evacuation of cervical hematoma in light of her presentation. Description of Procedure Patient was taken to the OR and having been previously intubated and had her anterior cervical spine prepped and draped in normal sterile fashion. I removed the sutures to the right anterior cervical incision. I was able to dissect by finger dissection to the anterior cervical spine. Massive amounts of clot were identified and evacuated. Approximately 4 L of antibiotic saline was then irrigated throughout the incision to thoroughly evacuate all hematoma. The area was inspected several times to ensure there was no bleeding or damage to surrounding structures tissues. A 15 round GLEN drain was then inserted incision was closed with subcutaneous Vicryl and 4 Monocryl for final skin closure. We did lighten the patient's anesthesia at this point and tested her motor function to the upper and lower extremities knowing them to be intact. The patient then remained intubated and was taken to the ICU. I attest to the content of the Intraoperative Record and any orders documented therein. Any exceptions are noted below.
[2022-08-08] MEDS ORDERED: PROPOFOL IV EMULSION 10 MG/ML 100 ML VIAL IV ONE (16:00)
[2022-08-08] MEDS ORDERED: ALUMINUM/MAGNESIUM SUSP 30 ML UDC PO PRN (16:28)
[2022-08-08] MEDS ORDERED: HYDROmorphone INJ 0.5 MG/0.5 ML SYR IV PRN (16:28)
[2022-08-08] MEDS ORDERED: LORazepam 0.5 MG TAB PO PRN (16:28)
[2022-08-08] MEDS ORDERED: DO NOT ADMINISTER PNEUMOCOCCAL VACCINE PRN (16:28)
[2022-08-08] MEDS ORDERED: NALOXONE HCL 0.4 MG/1 ML VIAL/CARP IV PRN (16:28)
[2022-08-08] MEDS ORDERED: HYDROmorphone INJ 1 MG/ML SYRINGE IV PRN (16:28)
[2022-08-08] MEDS ORDERED: traMADol HCL 50 MG TABLET PO PRN (16:28)
[2022-08-08] MEDS ORDERED: hydrOXYzine HCl 25 MG TAB PO PRN (16:28)
[2022-08-08] MEDS ORDERED: METOCLOPRAMIDE HCL INJ 5 MG/ML 2 ML VIAL IV PRN (16:28)
[2022-08-08] MEDS ORDERED: LORazepam 2 MG/1 ML VIAL IV PRN (16:28)
[2022-08-08] MEDS ORDERED: DO NOT ADMINISTER FLU VACCINE PRN (16:28)
[2022-08-08] MEDS ORDERED: ACETAMINOPHEN 1,000 MG/100 ML VIAL IV PRN (16:28)
[2022-08-08] MEDS ORDERED: ACETAMINOPHEN 500 MG TAB PO PRN (16:28)
[2022-08-08] MEDS ORDERED: ONDANSETRON 4 MG OD TAB PO PRN (16:28)
[2022-08-08] MEDS ORDERED: FAMOTIDINE 20 MG TAB PO PRN (16:28)
[2022-08-08] MEDS ORDERED: bisacodyL 10 MG SUPP PR PRN (16:28)
[2022-08-08] MEDS ORDERED: SOD PHOSPHATE/SOD BIPHOSPHATE ENEMA 132 ML BTL PR PRN (16:28)
[2022-08-08] MEDS ORDERED: RACEPINEPHRINE 2.25% NEBU SOLN 0.5 ML VIAL INH PRN (16:28)
[2022-08-08] MEDS ORDERED: diphenhydrAMINE Capsule 25 MG CAP PO PRN (16:28)
[2022-08-08] MEDS ORDERED: PROMETHAZINE HCL 12.5 MG in SODIUM CHLORIDE 0.9% 50 ML IV PRN (16:28)
[2022-08-08] MEDS ORDERED: MAGNESIUM HYDROXIDE SUSP 30 ML UDC PO PRN (16:28)
[2022-08-08] MEDS ORDERED: dexAMETHasone 8 MG in SYRINGE 0 ML IV PRN (16:42)
[2022-08-08] MEDS ORDERED: STAT IV Infusion **Titration per Protocol STA (16:46)
[2022-08-08] MEDS: LACTATED RINGER'S 1,000 ML IV SCH (16:51)
[2022-08-08] MEDS ORDERED: fentaNYL citrate 2,500 MCG/250 ML BAG IV SCH (17:00)
--- NOTE | 2022-08-08 17:00 | Hospitalist Consultation ---
Date of Consultation August 08, 2022 Assessment & Plan (1) Myelopathy concurrent with and due to spinal stenosis of cervical region: (2) Cervical spine disease: (3) Postoperative hematoma: - Transferred to ICU s/p anterior cervical corpectomy. After initial procedure with corpectomy pt then developed airway compromise and found to have large amounts of cervical hematoma requiring evacuation and required intubation. - Family has been made aware and left the bedside prior to my visit - Pain management, bowel regimen per the primary team - PT/OT consults - Obtain CBC diff, CMP, mag, INR, LFTs now - Intubated currently with vent settings: VT 380, RR 18, PEEP 5.0, FI02 50% (4) Alcohol dependence: -Hx of drinking 6-9 beers per per day per anesthesia consultation, patient currently sedated/intubated -Will require alcohol withdrawal protocol once coming off sedation with propofol and fentanyl IV -Unknown last time of last drink - will require close monitoring -Checking LFTs and INR as above (5) COPD (chronic obstructive pulmonary disease): -History of such, does not wear supplemental O2 at baseline, does not wear CPAP at bedtime -History of smoking, will require quantification when she is awake (6) Hypertension: - Cont home antihypertensives metoprolol - BP is slightly elevated at 190/84 (7) HLD (hyperlipidemia): - Cont atorvastatin (8) Hypothyroidism: - Cont levothyroxine 75 mcg daily DVT ppx: - teds, scds Dispo: From home, likely to remain in the hospital x 1-2 days A total of 48 minutes were spent with greater than 50% of that time face to face with the patient, personally reviewing all current laboratories, imaging studies, past medication reconciliation, outpatient chart review, and discussion with specialists to collaborate care for the patient with attending. Please see attending documentation for corrections and/or additions. Supervising Physician Co-Signing Physician Notes I have seen and examined the patient and have discussed the case with the provider above. I agree with the assessment and plan as stated. 67 yo F with post op complication above. She has received the appropriate surgical treatment and remains intubated and sedated in the ICU. Known heavy drinker and discussed this with primary RN this evening who is aware in case sedation needs to be increased. Cont current management per ICU. Physical reveals swelling in the anterior neck with drain in place. She is intubated and sedated and will awaken to voice and follow commands. Clear lungs to auscultation, unremarkable cardiac exam and abdomen is soft, NTND. Extremities are warm and well-perfused. Labwork and imaging reviewed. She continues on a perioperative antibiotic and IVF. Cont current management per ICU. Thank you for the consultation. DO Yehuda History of Present Illness Reason for Consultation: Medical management Requesting Physician: Dr. Greenfield Attending Physician: Morales Greenfield DO History of Present Illness This is a 67-year-old female with PMHx of HTN, HLD COPD, alcohol dependence drinks 6-9 beers per night, tobacco abuse, and GERD. Patient was brought to the operating room today for an anterior cervical corpectomy by Dr. Greenfield. Her postoperative state was complicated by large hematoma with airway compromise in the PACU which required intubation and required going back into the OR for evacuation of the hematoma by Dr. Greenfield after the initial procedure. She is being maintained in the ICU status post mas sive amounts of prevertebral clot consistent with postop hematoma. Pt had approximately 4 L of antibiotic saline was irritation through the incision to thoroughly evacuate all hematoma. Allergies Allergy/AdvReac Type Severity Reaction Status Date / Time venlafaxine Allergy Severe severe Verified 08/08/22 08:29 cough, throat tightness nickel Allergy Mild Rash Verified 08/08/22 08:29 Home Medications Medication Instructions Recorded Confirmed Type atorvastatin 10 mg tablet 10 mg PO QAM 07/06/20 08/08/22 History levothyroxine 75 mcg tablet 75 mcg PO QAM 07/06/20 08/08/22 History pantoprazole 20 mg tablet,delayed 20 mg PO QAM 07/06/20 08/08/22 History release albuterol sulfate 90 mcg/actuation 1 inh inhalation Q6H PRN shortness 07/08/20 08/08/22 Rx aerosol inhaler of breath or wheezing #8.5 grams acetaminophen 325 mg tablet 650 mg PO BID 09/13/21 08/08/22 History cyanocobalamin (vitamin B-12) 100 100 mcg PO QAM 09/13/21 08/08/22 History mcg tablet fluticasone fur. 100 mcg-umeclid 1 inh inhalation QAM 09/13/21 08/08/22 History 62.5 mcg-vilant 25 mcg inhalat.powder (Trelegy Ellipta) aspirin 81 mg capsule 81 mg PO QAM 07/23/22 08/08/22 History diclofenac sodium 1 % topical gel 2 g topical QID PRN neck pain 07/23/22 08/08/22 History metoprolol succinate 50 mg 50 mg PO QAM 07/23/22 08/08/22 History tablet,extended release 24 hr Patient History Medical History Alcohol dependence per pt drinks 6-9 beers a night Chronic back pain Chronic neck pain COPD (chronic obstructive pulmonary disease) inhaler daily and prn with exertion such as a flight of stairs, average 1-2 times weekly GERD (gastroesophageal reflux disease) controlled, stable per pt Hepatic steatosis HLD (hyperlipidemia) Hypertension controlled, stable per pt Hypothyroidism SANDRA (obstructive sleep apnea) pt states she had sleep study test done was ok--no device Pleurisy last episode 3 yrs ago Tobacco abuse disorder Surgical History History of bilateral tubal ligation History of colonoscopy History of esophagogastroduodenoscopy (EGD) History of lumbar surgery History of thoracotomy 1980 @ [facility]--and right lung with chest tube placement--per pt was due to intermittent spontaneous pneumothorax of right lung---pt states she gets intermittent pleurisy (last time was 3 yrs ago) History of tooth extraction all top teeth removed and some on bottom History of wisdom tooth extraction Family History Mother Pancreatic cancer Father , fatal [place] @ 42 Myocardial infarction Other No family history of adverse response to anesthesia Social History Smoking Status: Former smoker Cigarettes Per Day: vaps intermittently (advised on policy); Smoking End Date: quit 2 yrs ago; Second Hand Exposure: No; Do You Dip or Chew Tobacco: No; Tobacco Cessation Education Requested by Patient: No Hx Alcohol Use: Yes (4-5 beers a day) Alcohol type: beer Hx Substance Use: Yes (smokes marijuana (advised on policy)) Last Used Substance: Hours (ago) Last Used Substance Other:: uses every night to help sleep Preferred Language: Sri [place]ankan Communication Ability: Effective Card Cleaner Required: No Beliefs That Will Affect Care: None marital status: Current Living Situation: Spouse Other Information That Helps Us Care for You: No Feels Safe at Home: Yes Safety Concerns: Feels Safe At This Time Assistive Devices: Denture - Upper and Glasses Review of Systems Review of Systems: Unobtainable due to endotracheal tube and Unobtainable due to reduced consciousness Physical Exam Physical Exam: General:sedated and intubated, no apparent distress, awakens to verbal stimuli Head: Normocephalic, atraumatic ENT: PERRL, EOMI, no pharyngeal exudate, mucous membranes moist Neck: anterior neck with ecchymosis, dressing c/d/i, GLEN drain in place drainin serosanguineous bloody fluid Chest: Clear to auscultation, intubated, no adventitious breath sounds Cardiac: Regular rate and rhythm, no murmur, no JVD, normal peripheral pulses, good capillary refill Abdominal: NABS x 4 quadrants, obese, soft, nondistended, nontender to palpation, no rebound or guarding Extremities: Normal inspection, no peripheral edema or erythema, calfs nontender to palpation Psych: Normal mood and affect Neuro:Awakens to verbal stimuli, sedated Results & Data Results & Data Vital Signs (Past 12 Hours) Vital Signs Temp Pulse Pulse Pulse Resp BP Pulse Ox 08/08/22 16:24 83 19 94 08/08/22 14:27 104 H 18 95 08/08/22 14:00 36.2 C L 91 H 13 190/84 H 97 08/08/22 13:45 36.2 C L 87 15 185/107 H 95 08/08/22 13:30 36.2 C L 83 18 177/90 H 94 08/08/22 13:15 36.2 C L 73 13 134/80 93 08/08/22 13:00 36.2 C L 69 19 138/78 93 08/08/22 12:50 36.2 C L 70 13 151/85 H 93 08/08/22 12:40 78 21 155/85 H 93 08/08/22 12:30 75 12 149/84 H 93 08/08/22 12:20 81 14 160/85 H 97 08/08/22 12:10 85 16 158/85 H 99 08/08/22 12:04 36.0 C L 90 11 L 183/92 H 99 08/08/22 08:34 36.8 C 80 24 142/86 H 95 O2 Del Method O2 Flow Rate FiO2 08/08/22 16:24 50 08/08/22 14:27 100 08/08/22 14:00 Nasal Cannula 3 08/08/22 13:45 Nasal Cannula 3 08/08/22 13:30 Nasal Cannula 3 08/08/22 13:15 Nasal Cannula 3 08/08/22 13:00 Nasal Cannula 3 08/08/22 12:50 Nasal Cannula 3 08/08/22 12:40 Nasal Cannula 3 08/08/22 12:30 Nasal Cannula 3 08/08/22 12:20 Oxymask 5 08/08/22 12:10 Oxymask 7 08/08/22 12:04 Oxymask 10 08/08/22 08:34 Room Air (4) Alcohol dependence Substance use status: unspecified alcohol-induced disorder Qualified Code(s): F10.29 - Alcohol dependence with unspecified alcohol-induced disorder (5) COPD (chronic obstructive pulmonary disease) COPD type: unspecified COPD Qualified Code(s): J44.9 - Chronic obstructive pulmonary disease, unspecified
[2022-08-08] MEDS: propofoL 1,000 MG/100 ML VIAL IV SCH ×2 (17:35→21:18)
[2022-08-08 17:43] LABS: Hematocrit (blood only) 36.2 % (37.0-47.0); Hemoglobin 12.1 g/dl (12.0-16.0); Mean Corpuscular Hemoglobin 31.6 pg (25.0-34.0); Mean Corpuscular Hgb Conc 33.4 g/dL (32.0-36.0); Mean Corpuscular Volume 94.5 fL (80.0-100.0); Mean Platelet Volume 9.8 fL (9.4-12.4); Platelet Count 257 K/uL (130-400); RDW Coefficient of Variation 13.2 % (11.5-14.5); RDW Standard Deviation 45.8 fL (36.4-46.3); Red Blood Count 3.83 M/uL (4.20-5.40); White Blood Count 12.62 K/ul (4.8-10.8)
--- NOTE | 2022-08-08 17:51 | Critical Care Consultation ---
Seen and examined. See my PN from 08/09 for additional details. Agree with AP as noted. Date of Consultation August 08, 2022 Assessment & Plan (1) Difficult airway for intubation: (2) Postoperative hematoma: (3) Cervical spine disease: (4) COPD (chronic obstructive pulmonary disease): (5) Alcohol dependence: Plan Reason Critically Ill: 67-year-old female status post ACDF with unfortunate postoperative hematoma requiring reintubation and evacuation hematoma. NEURO - * CAM ICU: Unable to assess * Sedation: Propofol * Pain: Fentanyl * Status post ACDF: * Continue with precautions per spine surgery. * IV Dex ordered. * h/o EtOH Abuse: * Will need to watch this closely as her hospitalization continues. * AWSS might be warranted. * Will hold on doing so while intubated/sedated. CARDIAC/VASCULAR - * HTN/HLD: * Continue home Rx when able. * Monitor on telemetry. RESPIRATORY - * Difficult airway 2/2 postoperative hematoma: * Continue IV Steroids. * Will check CXR post intubation. * Titrate down ventilator settings as tolerated. * COPD: * Not bronchospastic on exam. * Continue albuterol HFA while intubated. * Restart Trelogy when able. GI/NUTRITION - * NPO. Will hold on OGT for now. * Prophylaxis: PPI RENAL/LYTES - * Will check PRP * IVF: Lactate at 100 mL/hr - * Mo in place - Strict I&Os. ENDO - * Borderline DM * BSGs per unit protocol. ISS --> gtt per unit policy. HEME - * Will recheck H&H s/p evacuation of hematoma. ID - * Prophylactic antibiotics per surgery team. LINES/IV ACCESS - * PIVs x2 * Mo * ETT DVT PROPHYLAXIS - * Hold 2/2 recent blood loss. * SCDs I have personally spent 45 minutes of critical care time in the direct management of this patient. This is a life/limb threatening event. This includes time spent evaluating patient, direct bedside care, chart review, placing orders, interpretation of diagnostic studies, discussion with consultants, patient, and family members, as well as other required patient management activities. This time is exclusive of all separately billable procedures, and teaching time and separate from and in addition to any other critical care service time. Thank you for allowing us to participate in the care of this patient. Please refer to my attending physician's documentation for any further recommendations. History of Present Illness Reason for Consultation: Post op ACDF Requesting Physician: Dr. Greenfield Attending Physician: Morales Greenfield, History of Present Illness Patient is a 67-year-old female with a significant past medical history of alcohol dependence, COPD, hyperlipidemia, hypothyroidism, hypertension, and cervical spine disease who underwent elective ACDF today. Unfortunately, the patient was noted to develop a neck hematoma in PACU and had respiratory compromise and underwent fiberoptic intubation and taken back to the OR for evacuation of hematoma. Patient was brought to the ICU intubated status post surgical intervention for ongoing airway management. Patient unable to contribute to HPI. Allergies Allergy/AdvReac Type Severity Reaction Status Date / Time venlafaxine Allergy Severe severe Verified 08/08/22 08:29 cough, throat tightness nickel Allergy Mild Rash Verified 08/08/22 08:29 Home Medications Medication Instructions Recorded Confirmed Type atorvastatin 10 mg tablet 10 mg PO QAM 07/06/20 08/08/22 History levothyroxine 75 mcg tablet 75 mcg PO QAM 07/06/20 08/08/22 History pantoprazole 20 mg tablet,delayed 20 mg PO QAM 07/06/20 08/08/22 History release albuterol sulfate 90 mcg/actuation 1 inh inhalation Q6H PRN shortness 07/08/20 08/08/22 Rx aerosol inhaler of breath or wheezing #8.5 grams acetaminophen 325 mg tablet 650 mg PO BID 09/13/21 08/08/22 History cyanocobalamin (vitamin B-12) 100 100 mcg PO QAM 09/13/21 08/08/22 History mcg tablet fluticasone fur. 100 mcg-umeclid 1 inh inhalation QAM 09/13/21 08/08/22 History 62.5 mcg-vilant 25 mcg inhalat.powder (Trelegy Ellipta) aspirin 81 mg capsule 81 mg PO QAM 07/23/22 08/08/22 History diclofenac sodium 1 % topical gel 2 g topical QID PRN neck pain 07/23/22 08/08/22 History metoprolol succinate 50 mg 50 mg PO QAM 07/23/22 08/08/22 History tablet,extended release 24 hr Patient History Medical History Alcohol dependence per pt drinks 6-9 beers a night Chronic back pain Chronic neck pain COPD (chronic obstructive pulmonary disease) inhaler daily and prn with exertion such as a flight of stairs, average 1-2 times weekly GERD (gastroesophageal reflux disease) controlled, stable per pt Hepatic steatosis HLD (hyperlipidemia) Hypertension controlled, stable per pt Hypothyroidism SANDRA (obstructive sleep apnea) pt states she had sleep study test done was ok--no device Pleurisy last episode 3 yrs ago Tobacco abuse disorder Surgical History History of bilateral tubal ligation History of colonoscopy History of esophagogastroduodenoscopy (EGD) History of lumbar surgery History of thoracotomy 1980 @ [facility]--and right lung with chest tube placement--per pt was due to intermittent spontaneous pneumothorax of right lung---pt states she gets intermittent pleurisy (last time was 3 yrs ago) History of tooth extraction all top teeth removed and some on bottom History of wisdom tooth extraction Family History Mother Pancreatic cancer Father , fatal [place] @ 42 Myocardial infarction Other No family history of adverse response to anesthesia Social History Smoking Status: Former smoker Cigarettes Per Day: vaps intermittently (advised on policy); Smoking End Date: quit 2 yrs ago; Second Hand Exposure: No; Do You Dip or Chew Tobacco: No; Tobacco Cessation Education Requested by Patient: No Hx Alcohol Use: Yes (4-5 beers a day) Alcohol type: beer Hx Substance Use: Yes (smokes marijuana (advised on policy)) Last Used Substance: Hours (ago) Last Used Substance Other:: uses every night to help sleep Preferred Language: Czech Communication Ability: Effective Rehab Technician Required: No Beliefs That Will Affect Care: None marital status: Current Living Situation: Spouse Other Information That Helps Us Care for You: No Feels Safe at Home: Yes Safety Concerns: Feels Safe At This Time Assistive Devices: Denture - Upper and Glasses Review of Systems Review of Systems: Unable to obtain Physical Exam Physical Exam: VITAL SIGNS - Vital signs and nursing notes were reviewed. GENERAL - 67-year-old female appearing her stated age who is intubated and sedated. EYES - PERRL with EOMI bilaterally. EARS - No deformities of external structures noted on gross examination bilaterally. NOSE - Midline and without cyanosis. MOUTH/OROPHARYNX - ETT in place. Without perioral cyanosis. NECK - Neck with FROM. No nuchal rigidity. LUNGS - Normal vesicular breath sounds CTA B/L. No wheezes, rales, or rhonchi appreciated. CARDIAC - RRR with S1/S2. No murmur, rubs, or gallops appreciated. ABDOMEN - Abdominal contour obese without pulsations or visible masses. BS normoactive all four quadrants. No tenderness, palpable masses, hepatospl enomegaly, or ascites noted. EXTREMITIES - No clubbing or peripheral cyanosis. No pretibial edema present. +3/5 radial and dorsalis pedis pulses palpated throughout. NEUROLOGIC - Sedated. Results & Data Results & Data Vital Signs (Past 12 Hours) Vital Signs Temp Pulse Pulse Pulse Resp BP Pulse Ox 08/08/22 16:28 83 08/08/22 16:28 08/08/22 16:24 83 19 94 08/08/22 14:27 104 H 18 95 08/08/22 14:00 36.2 C L 91 H 13 190/84 H 97 08/08/22 13:45 36.2 C L 87 15 185/107 H 95 08/08/22 13:30 36.2 C L 83 18 177/90 H 94 08/08/22 13:15 36.2 C L 73 13 134/80 93 08/08/22 13:00 36.2 C L 69 19 138/78 93 08/08/22 12:50 36.2 C L 70 13 151/85 H 93 08/08/22 12:40 78 21 155/85 H 93 08/08/22 12:30 75 12 149/84 H 93 08/08/22 12:20 81 14 160/85 H 97 08/08/22 12:10 85 16 158/85 H 99 08/08/22 12:04 36.0 C L 90 11 L 183/92 H 99 08/08/22 08:34 36.8 C 80 24 142/86 H 95 O2 Del Method O2 Flow Rate FiO2 08/08/22 16:28 08/08/22 16:28 50 08/08/22 16:24 50 04/05/23 14:27 100 08/08/22 14:00 Nasal Cannula 3 08/08/22 13:45 Nasal Cannula 3 08/08/22 13:30 Nasal Cannula 3 08/08/22 13:15 Nasal Cannula 3 08/08/22 13:00 Nasal Cannula 3 08/08/22 12:50 Nasal Cannula 3 08/08/22 12:40 Nasal Cannula 3 08/08/22 12:30 Nasal Cannula 3 08/08/22 12:20 Oxymask 5 08/08/22 12:10 Oxymask 7 08/08/22 12:04 Oxymask 10 08/08/22 08:34 Room Air Coding Level of Care Code 19974 CRITICAL CARE 1ST 30-74M Diagnoses Difficult airway for intubation T88.4XXA Postoperative hematoma Cervical spine disease M48.9 COPD (chronic obstructive pulmonary disease) J44.9 COPD type: unspecified COPD Alcohol dependence F10.29 Substance use status: unspecified alcohol-induced disorder Time Spent (min) 45 (4) COPD (chronic obstructive pulmonary disease) COPD type: unspecified COPD Qualified Code(s): J44.9 - Chronic obstructive pulmonary disease, unspecified (5) Alcohol dependence Substance use status: unspecified alcohol-induced disorder Qualified Code(s): F10.29 - Alcohol dependence with unspecified alcohol-induced disorder
[2022-08-08 17:59] LABS: Albumin Globulin Ratio 1.6 (0.9-2); Albumin Level 3.8 gm/dl (3.4-5.0); BUN Creatinine Ratio 25.7 (10-20); Bilirubin,Total 0.4 mg/dl (0.2-1.0); Calcium 8.7 mg/dl (8.6-10.3); Creatinine Clr Calc Pharmacy 72.3 ml/min; Est GFR (African American) 98.5 ml/min; Globulin 2.4 gm/dl (2.5-4.0); Magnesium 1.8 mg/dl (1.7-2.4); Total Protein 6.2 gm/dl (6.0-8.3)
[2022-08-08 18:09] LABS: Prothrombin Time 10.6 Seconds (9.0-12.0)
[2022-08-08 18:11] LABS: Basophils # (auto) 0.02 K/uL (0-0.2); Basophils % (auto) 0.2 %; Immature Granulocytes # (auto) 0.07 K/uL (0.01-0.20); Immature Granulocytes % (auto) 0.6 %; Lymphocytes # (auto) 0.42 K/uL (1.2-3.4); Lymphocytes % (auto) 3.3 %; Monocytes # (auto) 0.11 K/uL (0.11-0.59); Monocytes % (auto) 0.9 %; RBC Morphology Unremarkable
[2022-08-08] MEDS: ceFAZolin 2000MG 2,000 MG/15 ML SYR IV SCH (18:13)
[2022-08-08] MEDS ORDERED: DEXTROSE 50% 50 ML SYRINGE IV PRN (18:15)
[2022-08-08] MEDS ORDERED: GLUCOSE 40% GEL 15 GM TUBE PO PRN (18:15)
[2022-08-08] MEDS ORDERED: CARBOHYDRATES FOR HYPOGLYCEMIA PO PRN (18:15)
[2022-08-08] MEDS ORDERED: GLUCOSE 10 TAB/TUBE PO PRN (18:15)
[2022-08-08] MEDS ORDERED: GLUCAGON FOR INJ 1 MG VIAL SQ PRN (18:15)
--- NOTE | 2022-08-08 18:17 | XRay Report ---
XR chest 1V portable HISTORY: s/p intubation in OR COMPARISON: Chest 09/13/2021. FINDINGS: Endotracheal tube terminates 4.7 cm from the mendez. No pneumothorax. Mild widening the sup erior mediastinum is likely due to the AP portable technique. Interval cervical spinal fusion hardwar e is noted. The heart is normal in size. There is mild interstitial/vascular thickening suggestive of mild congestive change. This has progressed. Small bilateral pleural effusions and bibasilar linear densities are noted. This likely represents subsegmental atelectasis. IMPRESSION: 1. Endotracheal tube terminates 4.7 cm and the mendez. 2. Mild congestive change and small bilateral pleural effusions. 3. Bibasilar linear densities favor subsegmental atelectasis. 4. Mild widening the superior mediastinum which may be due to the supine portable technique. This can be reassessed on post procedure imaging. ACT 112: Negative or not required by law. Electronically signed by: Nathaniel Echeverria M.D. 08/08/2022 6:16 PM
[2022-08-08] MEDS ORDERED: ALBUTEROL HFA 8 GM INHALER INH PRN (19:00)
[2022-08-08] MEDS: DOCUSATE SODIUM/SENNA 50/8.6MG TAB PO SCH (19:51)
[2022-08-08] MEDS: ICU Protocol for HYPERglycemia SCH (19:52)
[2022-08-08] MEDS: PROPOFOL BOLUS FROM BAG IV PRN ×2 (20:30→23:30)
[2022-08-08] MEDS ORDERED: ICU Protocol for HYPERglycemia SCH (21:00)
[2022-08-08] MEDS: fentaNYL BOLUS from BAG IV PRN (21:16)
[2022-08-09] MEDS: LACTATED RINGER'S 1,000 ML IV SCH ×3 (00:55→21:43)
[2022-08-09] MEDS: ceFAZolin 2000MG 2,000 MG/15 ML SYR IV SCH (01:07)
[2022-08-09] MEDS: propofoL 1,000 MG/100 ML VIAL IV SCH ×4 (03:41→16:33)
[2022-08-09 05:22] LABS: Basophils # (auto) 0.01 K/uL (0-0.2); Basophils % (auto) 0.1 %; Hematocrit (blood only) 30.7 % (37.0-47.0); Hemoglobin 10.3 g/dl (12.0-16.0); Immature Granulocytes # (auto) 0.05 K/uL (0.01-0.20); Immature Granulocytes % (auto) 0.5 %; Lymphocytes # (auto) 0.76 K/uL (1.2-3.4); Lymphocytes % (auto) 7.9 %; Mean Corpuscular Hemoglobin 31.6 pg (25.0-34.0); Mean Corpuscular Hgb Conc 33.6 g/dL (32.0-36.0); Mean Corpuscular Volume 94.2 fL (80.0-100.0); Mean Platelet Volume 9.9 fL (9.4-12.4); Monocytes # (auto) 0.67 K/uL (0.11-0.59); Neutrophils # (auto) 8.11 K/uL (1.40-6.50); Neutrophils % (auto) 84.5 %; Platelet Count 261 K/uL (130-400); RDW Coefficient of Variation 13.3 % (11.5-14.5); RDW Standard Deviation 45.9 fL (36.4-46.3); Red Blood Count 3.26 M/uL (4.20-5.40)
[2022-08-09 05:33] LABS: Magnesium 1.8 mg/dl (1.7-2.4); Phosphorus 4.6 mg/dl (2.5-4.9)
[2022-08-09] MEDS: fentaNYL BOLUS from BAG IV PRN ×2 (05:45→07:21)
[2022-08-09] MEDS: POLYETHYLENE (MIRALAX) 17 GM PACK PO SCH ×3 (05:45→17:35)
[2022-08-09] MEDS: LEVOTHYROXINE SODIUM 75 MCG TABLET PO SCH (05:45)
[2022-08-09] MEDS: PROPOFOL BOLUS FROM BAG IV PRN (07:22)
[2022-08-09] MEDS: ICU Protocol for HYPERglycemia SCH ×3 (07:26→18:54)
[2022-08-09] MEDS ORDERED: STAT IV Infusion **Titration per Protocol STA (07:58)
--- NOTE | 2022-08-09 07:58 | Critical Care Progress Note ---
Date of Service August 09, 2022 Assessment & Plan (1) Difficult airway for intubation: (2) Postoperative hematoma: (3) Cervical spine disease: (4) COPD (chronic obstructive pulmonary disease): (5) Alcohol dependence: Plan Impression: 67-year-old female status post ACDF with unfortunate postoperative hematoma requiring reintubation and evacuation hematoma. 24-hour events: Patient underwent anterior cervical corpectomy. Postoperatively she developed respiratory distress and was reintubated by anesthesia and taken to the OR where hematoma was evacuated. She returned to the ICU intubated. She been hemodynamically stable. This morning the cuff was deflated and there is no appreciable air leak with a 7.[address] Recommendations NEURO -patient has no significant air leak so unable to extubate at this time. We will continue propofol. Add Precedex for sedation. Significant history of alcohol abuse as well as THC use. We will place on high-dose thiamine and folate as well given potential alcohol withdrawal. Benzodiazepines if needed. Pain adequately controlled with fentanyl. If pain issues become problematic, acute pain consult may be appropriate CARDIAC/VASCULAR - no current issues, hold metoprolol with precedex RESPIRATORY -significant airway edema secondary to postoperative hematoma. No air leak identified today. Continue dexamethasone. Continue to reassess with d eflation of cough. Once the patient has an adequate cuff leak, she will be extubated. Can continue bronchodilators as needed. Not bronchospastic currently. On steroids for airway edema GI/NUTRITION -PPI in place. Hold nutrition in hopes of extubation within the next 12 to 24 hours. If unable to extubate, will need to assess enteral nutrition and enteral access RENAL/LYTES -ICU electrolyte replacement. Decrease IV fluids to 50 cc an hour - Mo in place - Strict I&Os. ENDO - glycemic control per protocol. Holding levothyroxine for now given lack of enteral access. May need to restart in the next 24 hours HEME -slight decrease in hemoglobin and hematocrit overnight. No signs of continued active ongoing bleeding. No indication for transfusion currently. Continue to trend. Coagulation panel normal. ID -no current issues. Continue to follow LINES/IV ACCESS - * PIVs x2 * Mo * ETT DVT PROPHYLAXIS - * Hold 2/2 recent blood loss. * SCDs Patient remains critically ill with significant possibility of clinical decline. She was discussed on multidisciplinary rounds as well as with ICU bedside nurse. Total of 45 minutes critical care time was spent in evaluation [facility] stabilization this patient quitting discussion with bedside critical care nurse, pharmacy, PT OT, orthospine service and respiratory therapy Admission and Anticipated Discharge Date Admission Date: August 08, 2022 Subjective Intubated. The patient is awake and following commands. Review of Systems Review of Systems: Unobtainable due to endotracheal tube Physical Exam Constitutional: WD/WN, vitals as above + mechanically ventilated Neck: trachea midline, no thyromegaly Respiratory: normal respiratory effort, lungs clear to auscultation No air leak when cuff deflated Cardiovascular: RRR, no murmur, no edema Gastrointestinal (Abdomen): normal bowel sounds, soft, nontender, no hepatosplenomegaly Musculoskeletal: Extremities: extremities normal to inspection Skin: no rashes, warm and dry Neurologic: Awake and following commands Lymphatic: no cervical lymphadenopathy Results & Data Results & Data Vital Signs (Past 12 Hours) Vital Signs Temp Pulse Pulse Resp BP BP Pulse Ox 08/09/22 07:41 93 H 26 H 98 08/09/22 07:00 93 H 26 H 98 08/09/22 05:30 61 16 94 08/09/22 05:30 84/51 L 08/09/22 05:15 63 16 94 08/09/22 05:00 61 16 94 08/09/22 04:45 64 16 94 08/09/22 04:30 62 16 94 08/09/22 04:30 95/50 L 08/09/22 04:15 66 16 94 08/09/22 04:00 64 17 94 08/09/22 04:00 93/53 L 08/09/22 03:45 68 16 94 08/09/22 03:30 64 16 94 08/09/22 03:15 64 16 94 08/09/22 03:00 66 16 94 08/09/22 02:45 67 16 93 08/09/22 02:30 68 16 93 08/09/22 02:30 94/53 L 08/09/22 02:15 71 16 93 08/09/22 02:00 68 16 93 08/09/22 01:45 72 16 92 08/09/22 01:30 80 16 92 08/09/22 01:30 99/56 L 08/09/22 01:15 102 H 20 100 08/09/22 01:00 85 17 95 08/09/22 01:00 140/71 08/09/22 00:45 90 23 97 08/09/22 00:30 88 19 96 08/09/22 00:30 148/72 H 08/09/22 00:15 74 19 95 08/09/22 00:00 73 18 95 08/09/22 00:00 94/62 L 08/08/22 23:45 75 18 94 08/08/22 23:30 71 18 94 08/08/22 23:15 72 18 95 08/08/22 23:00 76 19 94 08/08/22 22:45 77 18 95 08/08/22 22:30 77 18 94 08/08/22 22:30 95/63 L 08/08/22 22:15 80 18 94 08/08/22 22:00 80 19 94 08/08/22 22:00 100/63 08/08/22 21:45 84 19 95 08/08/22 21:30 86 18 95 08/08/22 21:30 124/71 08/09/22 00:15 69 08/09/22 04:00 08/09/22 00:00 08/09/22 04:58 36.9 C 63 18 90/56 L 94 08/08/22 23:45 79 20 95 08/08/22 23:45 79 20 95 08/08/22 21:15 83 18 95 08/08/22 21:00 76 18 95 08/08/22 21:00 92/60 L 08/08/22 20:45 78 18 95 08/08/22 20:42 79 18 95 08/08/22 20:42 95/54 L 08/08/22 20:30 80 19 95 08/08/22 20:30 93/55 L 08/08/22 20:15 84 18 95 08/08/22 20:01 114 H 20 97 08/08/22 20:01 161/103 H 08/08/22 20:00 121 H 14 96 08/08/22 20:00 08/08/22 20:00 08/08/22 20:00 36.9 C 76 18 95/54 L 95 08/08/22 20:04 99 H 25 H 96 08/08/22 20:04 99 H 25 H 98 O2 Del Method FiO2 08/09/22 07:41 40 08/09/22 07:00 Mechanical Vent 40 08/09/22 05:30 08/09/22 05:30 08/09/22 05:15 08/09/22 05:00 08/09/22 04:45 08/09/22 04:30 08/09/22 04:30 08/09/22 04:15 08/09/22 04:00 08/09/22 04:00 08/09/22 03:45 08/09/22 03:30 08/09/22 03:15 08/09/22 03:00 08/09/22 02:45 08/09/22 02:30 08/09/22 02:30 08/09/22 02:15 08/09/22 02:00 08/09/22 01:45 08/09/22 01:30 08/09/22 01:30 08/09/22 01:15 08/09/22 01:00 08/09/22 01:00 08/09/22 00:45 08/09/22 00:30 08/09/22 00:30 08/09/22 00:15 08/09/22 00:00 08/09/22 00:00 08/08/22 23:45 08/08/22 23:30 08/08/22 23:15 08/08/22 23:00 08/08/22 22:45 08/08/22 22:30 08/08/22 22:30 08/08/22 22:15 08/08/22 22:00 08/08/22 22:00 08/08/22 21:45 08/08/22 21:30 08/08/22 21:30 08/09/22 00:15 08/09/22 04:00 50 08/09/22 00:00 50 08/09/22 04:58 Mechanical Vent 08/08/22 23:45 50 08/08/22 23:45 Mechanical Vent 50 08/08/22 21:15 08/08/22 21:00 08/08/22 21:00 08/08/22 20:45 08/08/22 20:42 08/08/22 20:42 08/08/22 20:30 08/08/22 20:30 08/08/22 20:15 08/08/22 20:01 08/08/22 20:01 08/08/22 20:00 08/08/22 20:00 Mechanical Vent 50 08/08/22 20:00 50 08/08/22 20:00 Mechanical Vent 50 08/08/22 20:04 50 08/08/22 20:04 Mechanical Vent 50 Critical Care Results & Data Vital Signs (Past 12 Hours) Vital Signs Temp Pulse Pulse Resp BP BP Pulse Ox 08/09/22 07:41 93 H 26 H 98 08/09/22 07:00 93 H 26 H 98 08/09/22 05:30 61 16 94 08/09/22 05:30 84/51 L 08/09/22 05:15 63 16 94 08/09/22 05:00 61 16 94 08/09/22 04:45 64 16 94 08/09/22 04:30 62 16 94 08/09/22 04:30 95/50 L 08/09/22 04:15 66 16 94 08/09/22 04:00 64 17 94 08/09/22 04:00 93/53 L 08/09/22 03:45 68 16 94 08/09/22 03:30 64 16 94 08/09/22 03:15 64 16 94 08/09/22 03:00 66 16 94 08/09/22 02:45 67 16 93 08/09/22 02:30 68 16 93 08/09/22 02:30 94/53 L 08/09/22 02:15 71 16 93 08/09/22 02:00 68 16 93 08/09/22 01:45 72 16 92 08/09/22 01:30 80 16 92 08/09/22 01:30 99/56 L 08/09/22 01:15 102 H 20 100 08/09/22 01:00 85 17 95 08/09/22 01:00 140/71 08/09/22 00:45 90 23 97 08/09/22 00:30 88 19 96 08/09/22 00:30 148/72 H 08/09/22 00:15 74 19 95 08/09/22 00:00 73 18 95 08/09/22 00:00 94/62 L 08/08/22 23:45 75 18 94 08/08/22 23:30 71 18 94 08/08/22 23:15 72 18 95 08/08/22 23:00 76 19 94 08/08/22 22:45 77 18 95 08/08/22 22:30 77 18 94 08/08/22 22:30 95/63 L 08/08/22 22:15 80 18 94 08/08/22 22:00 80 19 94 08/08/22 22:00 100/63 08/08/22 21:45 84 19 95 08/08/22 21:30 86 18 95 08/08/22 21:30 124/71 08/09/22 00:15 69 08/09/22 04:00 08/09/22 00:00 08/09/22 04:58 36.9 C 63 18 90/56 L 94 08/08/22 23:45 79 20 95 08/08/22 23:45 79 20 95 08/08/22 21:15 83 18 95 08/08/22 21:00 76 18 95 08/08/22 21:00 92/60 L 08/08/22 20:45 78 18 95 08/08/22 20:42 79 18 95 08/08/22 20:42 95/54 L 08/08/22 20:30 80 19 95 08/08/22 20:30 93/55 L 08/08/22 20:15 84 18 95 08/08/22 20:01 114 H 20 97 08/08/22 20:01 161/103 H 08/08/22 20:00 121 H 14 96 08/08/22 20:00 08/08/22 20:00 08/08/22 20:00 36.9 C 76 18 95/54 L 95 08/08/22 20:04 99 H 25 H 96 08/08/22 20:04 99 H 25 H 98 O2 Del Method FiO2 08/09/22 07:41 40 08/09/22 07:00 Mechanical Vent 40 08/09/22 05:30 08/09/22 05:30 08/09/22 05:15 08/09/22 05:00 08/09/22 04:45 08/09/22 04:30 08/09/22 04:30 08/09/22 04:15 08/09/22 04:00 08/09/22 04:00 08/09/22 03:45 08/09/22 03:30 08/09/22 03:15 08/09/22 03:00 08/09/22 02:45 08/09/22 02:30 08/09/22 02:30 08/09/22 02:15 08/09/22 02:00 08/09/22 01:45 08/09/22 01:30 08/09/22 01:30 08/09/22 01:15 08/09/22 01:00 08/09/22 01:00 08/09/22 00:45 08/09/22 00:30 08/09/22 00:30 08/09/22 00:15 08/09/22 00:00 08/09/22 00:00 08/08/22 23:45 08/08/22 23:30 08/08/22 23:15 08/08/22 23:00 08/08/22 22:45 08/08/22 22:30 08/08/22 22:30 08/08/22 22:15 08/08/22 22:00 08/08/22 22:00 08/08/22 21:45 08/08/22 21:30 08/08/22 21:30 08/09/22 00:15 08/09/22 04:00 50 08/09/22 00:00 50 08/09/22 04:58 Mechanical Vent 08/08/22 23:45 50 08/08/22 23:45 Mechanical Vent 50 08/08/22 21:15 08/08/22 21:00 08/08/22 21:00 08/08/22 20:45 08/08/22 20:42 08/08/22 20:42 08/08/22 20:30 08/08/22 20:30 08/08/22 20:15 08/08/22 20:01 08/08/22 20:01 08/08/22 20:00 08/08/22 20:00 Mechanical Vent 50 08/08/22 20:00 50 08/08/22 20:00 Mechanical Vent 50 08/08/22 20:04 50 08/08/22 20:04 Mechanical Vent 50 Lab & Micro Results (Past 24 Hours) RBC 3.26 M/uL (4.20-5.40) L 08/09/22 WBC 9.60 K/ul (4.8-10.8) 08/09/22 Hgb 10.3 g/dl (12.0-16.0) L 08/09/22 Hct 30.7 % (37.0-47.0) L 08/09/22 MCV 94.2 fL (80.0-100.0) 08/09/22 MCH 31.6 pg (25.0-34.0) 08/09/22 MCHC 33.6 g/dL (32.0-36.0) 08/09/22 RDW Standard Deviation 45.9 fL (36.4-46.3) 08/09/22 RDW Coefficient of Variation 13.3 % (11.5-14.5) 08/09/22 Plt Count 261 K/uL (130-400) 08/09/22 MPV 9.9 fL (9.4-12.4) 08/09/22 Neutrophils (%) (Auto) 84.5 % 08/09/22 Lymphocytes (%) (Auto) 7.9 % 08/09/22 Monocytes # (Auto) 0.67 K/uL (0.11-0.59) H 08/09/22 Eosinophils # (Auto) 0.00 K/uL (0-0.50) 08/09/22 Immature Granulocyte % (Auto) 0.5 % 08/09/22 Neutrophils # (Auto) 8.11 K/uL (1.40-6.50) H 08/09/22 Lymphocytes # (Auto) 0.76 K/uL (1.2-3.4) L 08/09/22 Monocytes # (Auto) 0.67 K/uL (0.11-0.59) H 08/09/22 Eosinophils # (Auto) 0.00 K/uL (0-0.50) 08/09/22 Basophils # (Auto) 0.01 K/uL (0-0.2) 08/09/22 Immature Granulocyte # (Auto) 0.05 K/uL (0.01-0.20) 3 Red Blood Cell Morphology Unremarkable 08/08/22 Na 139 mmol/L (136-145) 08/08/22 K 4.0 mmol/L (3.5-5.1) 08/08/22 Cl 109 mmol/L (98-107) H 08/08/22 CO2 24 mmol/L (21-32) 08/08/22 Anion Gap 6 (3-11) 08/08/22 BUN 19 mg/dl (6-23) 08/08/22 Creatinine 0.74 mg/dl (0.6-1.2) 08/08/22 Estimated GFR ( Amer) 98.5 ml/min 08/08/22 Estimated GFR (Non-Af Amer) 85.0 ml/min 08/08/22 BUN/Creatinine Ratio 25.7 (10-20) H 08/08/22 Glu 163 mg/dl (70-99(Fasting)) H 08/08/22 Ca 8.7 mg/dl (8.6-10.3) 08/08/22 Phosphorus Level 4.6 mg/dl (2.5-4.9) 08/09/22 Total Bilirubin 0.4 mg/dl (0.2-1.0) 08/08/22 AST 26 U/L (13-39) 08/08/22 ALT 33 U/L (7-52) 08/08/22 Alkaline Phosphatase 59 U/L (34-104) 08/08/22 TP 6.2 gm/dl (6.0-8.3) 08/08/22 Albumin 3.8 gm/dl (3.4-5.0) 08/08/22 Globulin 2.4 gm/dl (2.5-4.0) L 08/08/22 Albumin/Globulin Ratio 1.6 (0.9-2) 08/08/22 Mg 1.8 mg/dl (1.7-2.4) 08/09/22 04:49 Calcium Level 8.7 mg/dl (8.6-10.3) 08/08/22 17:19 Prothromb Time International Ratio 1.0 (0.9-1.1) 08/08/22 17:1 9 Diagnostic Findings (Past 24 Hours) Cervical Spine X-Ray 08/08/22 09:45 FL cervical 2-3V CLINICAL HISTORY: ACDF C5-7 CORPECTOMY C6 COMPARISON STUDY: None. FLUOROSCOPY TIME: 14 seconds FLUOROSCOPY IMAGES: 3 Ka,r: 3.5 mGy FINDINGS: Anterior cervical discectomy and fusion from C5 through C7 with C6 corpectomy. The hardware appears intact. Endotracheal tube is in place. IMPRESSION: Fluoroscopic assistance as above. ACT 112: Negative or not required by law. Electronically signed by: Nathaniel Echeverria M.D. 08/08/2022 12:03 PM Chest X-Ray 08/08/22 17:21 XR chest 1V portable HISTORY: s/p intubation in OR COMPARISON: Chest 09/13/2021. FINDINGS: Endotracheal tube terminates 4.7 cm from the mendez. No pneumothorax. Mild widening the superior mediastinum is likely due to the AP portable t echnique. Interval cervical spinal fusion hardware is noted. The heart is normal in size. There is mild interstitial/vascular thickening suggestive of mild congestive change. This has progressed. Small bilateral pleural effusions and bibasilar linear densities are noted. This likely represents subsegmental atelectasis. IMPRESSION: 1. Endotracheal tube terminates 4.7 cm and the mendez. 2. Mild congestive change and small bilateral pleural effusions. 3. Bibasilar linear densities favor subsegmental atelectasis. 4. Mild widening the superior mediastinum which may be due to the supine portable technique. This can be reassessed on post procedure imaging. ACT 112: Negative or not required by law. Electronically signed by: Nathaniel Echeverria M.D. 08/08/2022 6:16 PM I & O Totals 24 Hours 08/08/22 08/09/22 08/10/22 06:59 06:59 06:59 Intake Total 2074.374 / 2074.374 120.808 / 120.808 Output Total 720 / 720 Balance 1354.374 / 1354.374 120.808 / 120.808 Cumulative 07/09/22 16:14 thru 08/09/22 07:49 Intake Total 2195.182 Output Total 720 Balance 1475.182 RT Ventilator Mngmt (Last Documented) Ventilator Ordered Settings Ventilator Support Mode Assist Control 08/09/22 07:41 Respiratory Rate 26 08/09/22 07:41 Ventilator Tidal Volume 380 08/09/22 07:41 Setting Minute Ventilation 7.3 08/09/22 07:41 Positive End Expiratory 5 08/09/22 07:41 Pressure Fraction of Inspired Oxygen 40 08/09/22 07:41 Peak Inspiratory Flow 34 08/08/22 16:24 Machine Comment weaned fi02 to 40% 08/09/22 07:41 Ventilator - PT Measurements Respiratory Rate 26 Exhaled Tidal Volume 365 Minute Ventilation 7.3 Peak Inspiratory Airway 15 Pressure Plateau Pressure 12.9 Respiratory Cycle Inspiratory: 1:2.3 Expiratory Ratio Inspiratory Phase Time 0.90 End-Tidal CO2 32 Static Lung Compliance 46.20 Dynamic Lung Compliance 36.50 Normal Static Lung Compliance 48.00 Patient Measurements Comment Leak test performed by Dr. Gamboa, no leak noted Coding Level of Care Code 44582 CRITICAL CARE 1ST 30-74M Diagnoses Difficult airway for intubation T88.4XXA Postoperative hematoma Cervical spine disease M48.9 COPD (chronic obstructive pulmonary disease) J44.9 COPD type: unspecified COPD Alcohol dependence F10.29 Substance use status: unspecified alcohol-induced disorder (4) COPD (chronic obstructive pulmonary disease) COPD type: unspecified COPD Qualified Code(s): J44.9 - Chronic obstructive pulmonary disease, unspecified (5) Alcohol dependence Substance use status: unspecified alcohol-induced disorder Qualified Code(s): F10.29 - Alcohol dependence with unspecified alcohol-induced disorder
--- NOTE | 2022-08-09 08:23 | Orthopedic Progress Note ---
Date of Service August 09, 2022 Assessment & Plan (1) Postoperative hematoma: Plan: This time she is still intubated and being assessed for possible removal later today. We will maintain the GLEN drain for now. Admission and Anticipated Discharge Date Admission Date: August 08, 2022 Subjective Patient is still intubated. Physical Exam Physical Exam: Patient is cooperative with exam. She is still intubated. Results & Data Vital Signs (Past 12 Hours) Vital Signs Temp Pulse Pulse Resp BP BP Pulse Ox 08/09/22 07:41 93 H 26 H 98 08/09/22 07:00 93 H 26 H 98 08/09/22 05:30 61 16 94 08/09/22 05:30 84/51 L 08/09/22 05:15 63 16 94 08/09/22 05:00 61 16 94 08/09/22 04:45 64 16 94 08/09/22 04:30 62 16 94 08/09/22 04:30 95/50 L 08/09/22 04:15 66 16 94 08/09/22 04:00 64 17 94 08/09/22 04:00 93/53 L 08/09/22 03:45 68 16 94 08/09/22 03:30 64 16 94 08/09/22 03:15 64 16 94 08/09/22 03:00 66 16 94 08/09/22 02:45 67 16 93 08/09/22 02:30 68 16 93 08/09/22 02:30 94/53 L 08/09/22 02:15 71 16 93 08/09/22 02:00 68 16 93 08/09/22 01:45 72 16 92 08/09/22 01:30 80 16 92 08/09/22 01:30 99/56 L 08/09/22 01:15 102 H 20 100 08/09/22 01:00 85 17 95 08/09/22 01:00 140/71 08/09/22 00:45 90 23 97 08/09/22 00:30 88 19 96 08/09/22 00:30 148/72 H 08/09/22 00:15 74 19 95 08/09/22 00:00 73 18 95 08/09/22 00:00 94/62 L 08/08/22 23:45 75 18 94 08/08/22 23:30 71 18 94 08/08/22 23:15 72 18 95 08/08/22 23:00 76 19 94 08/08/22 22:45 77 18 95 08/08/22 22:30 77 18 94 08/08/22 22:30 95/63 L 08/08/22 22:15 80 18 94 08/08/22 22:00 80 19 94 08/08/22 22:00 100/63 08/08/22 21:45 84 19 95 08/08/22 21:30 86 18 95 08/08/22 21:30 124/71 08/09/22 00:15 69 08/09/22 04:00 08/09/22 00:00 08/09/22 04:58 36.9 C 63 18 90/56 L 94 08/08/22 23:45 79 20 95 08/08/22 23:45 79 20 95 08/08/22 21:15 83 18 95 08/08/22 21:00 76 18 95 08/08/22 21:00 92/60 L 08/08/22 20:45 78 18 95 08/08/22 20:42 79 18 95 08/08/22 20:42 95/54 L 08/08/22 20:30 80 19 95 08/08/22 20:30 93/55 L O2 Del Method FiO2 08/09/22 07:41 40 08/09/22 07:00 Mechanical Vent 40 08/09/22 05:30 08/09/22 05:30 08/09/22 05:15 08/09/22 05:00 08/09/22 04:45 08/09/22 04:30 08/09/22 04:30 08/09/22 04:15 08/09/22 04:00 08/09/22 04:00 08/09/22 03:45 08/09/22 03:30 08/09/22 03:15 08/09/22 03:00 08/09/22 02:45 08/09/22 02:30 08/09/22 02:30 08/09/22 02:15 08/09/22 02:00 08/09/22 01:45 08/09/22 01:30 08/09/22 01:30 08/09/22 01:15 08/09/22 01:00 08/09/22 01:00 08/09/22 00:45 08/09/22 00:30 08/09/22 00:30 08/09/22 00:15 08/09/22 00:00 08/09/22 00:00 08/08/22 23:45 08/08/22 23:30 08/08/22 23:15 08/08/22 23:00 08/08/22 22:45 08/08/22 22:30 08/08/22 22:30 08/08/22 22:15 08/08/22 22:00 08/08/22 22:00 08/08/22 21:45 08/08/22 21:30 08/08/22 21:30 08/09/22 00:15 08/09/22 04:00 50 08/09/22 00:00 50 08/09/22 04:58 Mechanical Vent 08/08/22 23:45 50 08/08/22 23:45 Mechanical Vent 50 08/08/22 21:15 08/08/22 21:00 08/08/22 21:00 08/08/22 20:45 08/08/22 20:42 08/08/22 20:42 08/08/22 20:30 08/08/22 20:30
[2022-08-09] MEDS ORDERED: METOPROLOL SUCC 50MG EXT REL TAB PO SCH (09:00)
[2022-08-09] MEDS: FLUTICASONE FUROATE 100MCG 14 PUFFS/INHALER INH SCH (09:05)
[2022-08-09] MEDS: PANTOprazole 40 MG TAB PO SCH (09:05)
[2022-08-09] MEDS: ATORVASTATIN 10 MG TAB PO SCH (09:05)
[2022-08-09] MEDS: THIAMINE HCL 100 MG in SYRINGE 9 ML IV SCH ×2 (09:10→19:55)
[2022-08-09] MEDS: dexMEDEtomidine 200 MCG/50 ML BAG IV SCH ×3 (09:14→23:23)
[2022-08-09] MEDS: dexAMETHasone 6 MG in SYRINGE 0 ML IV SCH (09:15)
[2022-08-09] MEDS: ASPIRIN 81 MG ECTAB PO SCH (09:24)
[2022-08-09] MEDS: UMECLIDINIUM/VILANTEROL 62.5/25MCG 7 PUFFS/INHALER INH SCH (09:24)
--- NOTE | 2022-08-09 15:02 | Hospitalist Progress Note ---
Date of Service August 09, 2022 Assessment & Plan (1) Myelopathy concurrent with and due to spinal stenosis of cervical region: (2) Cervical spine disease: (3) Postoperative hematoma: Plan: - Transferred to ICU s/p anterior cervical corpectomy. After initial procedure with corpectomy pt then developed airway compromise and found to have large amounts of cervical hematoma requiring evacuation and required intubation. -Currently in ICU, being managed by orthopedics and life skills teacher. Unable to extubate, currently on steroids (4) Alcohol dependence: Plan: -Hx of drinking 6-9 beers per per day per anesthesia consultation, unknown last drink, Will require alcohol withdrawal protocol once coming off sedation. Management per life skills teacher. (5) COPD (chronic obstructive pulmonary disease): Plan: -History of such, does not wear supplemental O2 at baseline, does not wear CPAP at bedtime -History of smoking, will require quantification when she is awake (6) Hypertension: Plan: BP on lower side, antihypertensive on hold (7) HLD (hyperlipidemia): Plan: On Lipitor (8) Hypothyroidism: Plan: On levothyroxine 75 mcg daily Further management per life skills teacher. Hospital service will continue to follow patient A total of 40 minutes were spent taking care for the patient reviewing chart, evaluating patient at bedside and discussing with care team. Admission and Anticipated Discharge Date Admission Date: August 08, 2022 Subjective Patient was seen and examined at bedside. Currently she is awake, alert but intubated and intermittently agitated and on restraints. No fever Review of Systems Review of Systems: All systems reviewed & are unremarkable except as noted in Subjective Physical Exam Physical Exam: General: Lying in bed, intubated, intermittent agitated, on restraint Chest: Clear breath sounds bilaterally, no wheezes or crackles CVS: Regular rate and rhythm, normal heart sounds, no murmur Abdomen: Soft, non tender, not distended, normal bowel sounds Neuro: Awake, alert Extremities: No cyanosis, clubbing or edema Results & Data Results & Data Vital Signs (Past 12 Hours) Vital Signs Temp Pulse Pulse Resp BP BP Pulse Ox 08/09/22 11:45 49 L 18 93 08/09/22 11:30 49 L 18 93 08/09/22 11:30 106/57 L 08/09/22 11:15 49 L 18 93 08/09/22 11:00 49 L 18 93 08/09/22 11:00 100/57 L 08/09/22 10:45 52 L 18 94 08/09/22 10:30 56 L 18 93 08/09/22 10:30 92/53 L 08/09/22 10:15 60 18 93 08/09/22 10:00 64 18 93 08/09/22 10:00 81/52 L 08/09/22 09:45 65 18 94 08/09/22 09:30 62 18 96 08/09/22 09:30 107/55 L 08/09/22 09:15 71 19 98 08/09/22 09:00 65 18 94 08/09/22 09:00 97/52 L 08/09/22 08:45 81 14 99 08/09/22 08:30 66 18 96 08/09/22 08:30 120/62 08/09/22 08:15 67 18 94 08/09/22 08:00 65 18 92 08/09/22 08:00 102/61 08/09/22 07:45 67 19 100 08/09/22 07:30 68 14 99 08/09/22 07:30 125/74 08/09/22 07:15 58 L 18 96 08/09/22 07:00 71 18 96 08/09/22 07:00 121/66 08/09/22 08:00 08/09/22 11:46 08/09/22 08:00 08/09/22 11:00 47 L 18 94 08/09/22 11:13 47 L 18 94 08/09/22 07:41 93 H 26 H 98 08/09/22 07:00 93 H 26 H 98 08/09/22 05:30 61 16 94 08/09/22 05:30 84/51 L 08/09/22 05:15 63 16 94 08/09/22 05:00 61 16 94 08/09/22 04:45 64 16 94 08/09/22 04:30 62 16 94 08/09/22 04:30 95/50 L 08/09/22 04:15 66 16 94 08/09/22 04:00 64 17 94 08/09/22 04:00 93/53 L 08/09/22 03:45 68 16 94 08/09/22 03:30 64 16 94 08/09/22 03:15 64 16 94 08/09/22 03:00 66 16 94 08/09/22 04:00 08/09/22 04:58 36.9 C 63 18 90/56 L 94 O2 Del Method FiO2 08/09/22 11:45 Mechanical Vent 0.4 08/09/22 11:30 08/09/22 11:30 08/09/22 11:15 08/09/22 11:00 08/09/22 11:00 08/09/22 10:45 08/09/22 10:30 08/09/22 10:30 08/09/22 10:15 08/09/22 10:00 08/09/22 10:00 08/09/22 09:45 08/09/22 09:30 08/09/22 09:30 08/09/22 09:15 08/09/22 09:00 08/09/22 09:00 08/09/22 08:45 08/09/22 08:30 08/09/22 08:30 08/09/22 08:15 08/09/22 08:00 08/09/22 08:00 08/09/22 07:45 Mechanical Vent 0.5 08/09/22 07:30 08/09/22 07:30 08/09/22 07:15 08/09/22 07:00 08/09/22 07:00 08/09/22 08:00 Mechanical Vent 50 08/09/22 11:46 40 08/09/22 08:00 40 08/09/22 11:00 Mechanical Vent 40 08/09/22 11:13 40 08/09/22 07:41 40 08/09/22 07:00 Mechanical Vent 40 08/09/22 05:30 08/09/22 05:30 08/09/22 05:15 08/09/22 05:00 08/09/22 04:45 08/09/22 04:30 08/09/22 04:30 08/09/22 04:15 08/09/22 04:00 08/09/22 04:00 08/09/22 03:45 08/09/22 03:30 08/09/22 03:15 08/09/22 03:00 08/09/22 04:00 50 08/09/22 04:58 Mechanical Vent Laboratory Results Short CBC 08/08/22 08/09/22 Range/Units 17:19 04:49 WBC 12.62 H 9.60 (4.8-10.8) K/ul Hgb 12.1 10.3 L (12.0-16.0) g/dl Hct 36.2 L 30.7 L (37.0-47.0) % Plt Count 257 261 (130-400) K/uL BMP 08/08/22 17:19 Sodium 139 Potassium 4.0 Chloride 109 H Carbon Dioxide 24 BUN 19 Creatinine 0.74 Glucose 163 H Calcium 8.7 Liver Function 08/08/22 Range/Units 17:19 Total Bilirubin 0.4 (0.2-1.0) mg/dl AST 26 (13-39) U/L ALT 33 (7-52) U/L Alkaline Phosphatase 59 (34-104) U/L Albumin 3.8 (3.4-5.0) gm/dl Medications Administered Current Inpatient Medications Acetaminophen (Acetaminophen 500 Mg Tab) 1,000 mg PO Q8H PRN PRN Reason: MILD Pain Scale 1,2,3 & Pre PT Stop: 09/07/22 16:27 Al Hydrox/Mg Hydrox/Simethicone (Aluminum/Magnesium Susp 30 Ml Udc) 30 ml PO Q6H PRN PRN Reason: Dyspepsia Stop: 09/07/22 16:27 Albuterol (Albuterol Hfa 8 Gm Inhaler) 1 puffs INH Q6R PRN PRN Reason: shortness of breath or wheezing Stop: 09/07/22 18:59 Aspirin (Aspirin 81 Mg Ectab) 81 mg PO [facility] Stop: 09/08/22 08:59 Last Admin: 08/09/22 09:24 Dose: Not Given Atorvastatin Calcium (Atorvastatin 10 Mg Tab) [facility] [place]: 09/08/22 08:59 Last Admin: 08/09/22 09:05 Dose: Not Given Bisacodyl (Bisacodyl 10 Mg Supp) 10 mg [place] DAILY PRN PRN Reason: Constipation Stop: 09/07/22 16:27 Dextrose (Dextrose 50% 50 Ml Syringe) 25 - 50 ml IV UD PRN; Protocol PRN Reason: Hypoglycemia Protocol Stop: 09/07/22 18:14 Diphenhydramine HCl (Diphenhydramine Capsule 25 Mg Cap) 25 mg PO Q6H PRN PRN Reason: Allergic Rhinitis/Insomnia Stop: 09/07/22 16:27 Epinephrine (Racepinephrine 2.25% Nebu Soln 0.5 Ml Vial) 0.5 ml INH NOW PRN PRN Reason: If stridor present Famotidine (Famotidine 20 Mg Tab) 20 mg PO Q12H PRN PRN Reason: Dyspepsia Stop: 09/07/22 16:27 Fentanyl Citrate (Fentanyl Citrate Pf 100 Mcg/2 Ml Vial) 50 mcg IV Q2H PRN PRN Reason: Moderate Pain or Severe Pain Stop: 08/23/22 09:48 Fluticasone Furoate (Fluticasone Furoate 100mcg 14 Puffs/Inhaler) 1 puffs INH QAM [facility] Stop: 09/08/22 08:59 Last Admin: 08/09/22 09:05 Dose: Not Given Glucagon (Glucagon For Inj 1 Mg Vial) 1 mg SQ UD PRN; Protocol PRN Reason: Hypoglycemia Protocol Stop: 09/07/22 18:14 Glucose (Glucose 10 Tab/Tube) 4 - 8 tab PO UD PRN; Protocol PRN Reason: Hypoglycemia Treatment Stop: 09/07/22 18:14 Glucose (Glucose 40% Gel 15 Gm Tube) 15 - 30 gm PO UD PRN; Protocol PRN Reason: Hypoglycemia Protocol Stop: 09/07/22 18:14 Acetaminophen (Ofirmev) 1,000 mg in 100 mls @ 400 mls/hr IV Q8H PRN PRN Reason: Pain Rating 1-3 & Pre PT Stop: 08/09/22 16:28 Dexamethasone 8 mg/ Syringe 2 mls @ 1 mls/min IV NOW PRN PRN Reason: If stridor present Lactated Ringer's (Lr) 1,000 mls @ 50 mls/hr IV .Q20H [facility] Stop: 09/07/22 16:27 Last Admin: 08/09/22 10:31 Dose: 100 mls/hr Promethazine HCl 12.5 mg/ (Sodium Chloride) 50.5 mls @ 202 mls/hr IV Q6H PRN PRN Reason: Nausea &/or Vomiting Stop: 09/07/22 16:27 Dexamethasone 6 mg/ Syringe 1.5 mls @ 1 mls/min IV DAILY [facility] Stop: 08/11/22 09:02 Last Admin: 08/09/22 09:15 Dose: 1 mls/min Propofol (Diprivan) 1,000 mg in 100 mls @ 14.491 mls/hr IV .Q6H55M [facility]; Protocol Stop: 08/11/22 16:59 Last Admin: 08/09/22 14:54 Dose: Not Given Dexmedetomidine/Sodium Chloride (Precedex) 200 mcg in 50 mls @ 6.9 mls/hr IV .Q7H15M [facility]; Protocol Stop: 08/13/22 07:59 Last Titration: 08/09/22 13:00 Dose: 0.3 mcg/kg/hr, 5.2 mls/hr Thiamine HCl 100 mg/ Syringe 10 mls @ 2 mls/min IV BID [facility] Stop: 09/08/22 08:59 Last Admin: 08/09/22 09:10 Dose: 2 mls/min Influenza Virus Vaccine Quadrival (Do Not Administer Flu Vaccine) 1 each N/A PRN PRN PRN Reason: Notification Stop: 09/07/22 16:27 Levothyroxine Sodium (Levothyroxine Sodium 75 Mcg Tablet) 75 mcg PO DAILYBB [facility] Stop: 09/08/22 06:29 Last Admin: 08/09/22 05:45 Dose: Not Given Magnesium Hydroxide (Magnesium Hydroxide Susp 30 Ml Udc) 30 ml PO Q24H PRN PRN Reason: Constipation Stop: 09/07/22 16:27 Metoclopramide HCl (Metoclopramide Hcl Inj 5 Mg/Ml 2 Ml Vial) 10 mg IV Q6H PRN PRN Reason: Nausea &/or Vomiting Stop: 09/07/22 16:27 Miscellaneous (Icu Protocol For Hyperglycemia) 1 each N/A ACHS [facility] Stop: 08/10/22 20:59 Last Admin: 08/09/22 12:00 Dose: Not Given Miscellaneous (Carbohydrates For Hypoglycemia ) 15 - 30 gm PO UD PRN PRN Reason: Hypoglycemia Protocol Stop: 09/07/22 18:14 Naloxone HCl (Naloxone Hcl 0.4 Mg/1 Ml Vial/Carp) 0.1 mg IV Q5M PRN PRN Reason: Oversedation/Resp depression Stop: 09/07/22 16:27 Ondansetron HCl (Ondansetron Inj 2 Mg/Ml 2 Ml Vial) 4 mg IV Q6H PRN PRN Reason: Nausea &/or Vomiting Stop: 09/07/22 16:27 Ondansetron HCl (Ondansetron 4 Mg Od Tab) 4 mg PO Q6H PRN PRN Reason: Nausea Stop: 09/07/22 16:27 Oxycodone HCl (Oxycodone Hcl Ir 5 Mg Tab (Immediate Release)) 5 - 10 mg PO Q4H PRN PRN Reason: Pain & Pre PT Stop: 08/22/22 16:27 Pantoprazole Sodium (Pantoprazole 40 Mg Tab) 40 mg PO QAM [facility] Stop: 09/08/22 08:59 Last Admin: 08/09/22 09:05 Dose: Not Given Pneumococcal Polyvalent Vaccine (Do Not Administer Pneumococcal Vaccine) 1 each N/A PRN PRN PRN Reason: Notification Stop: 09/07/22 16:27 Polyethylene Glycol (Polyethylene (Miralax) 17 Gm Pack) 17 gm PO Q6 [facility] Stop: 09/08/22 05:59 Last Admin: 08/09/22 12:00 Dose: Not Given Propofol (Propofol Bolus From Bag) 20 mg IV Q5M PRN PRN Reason: Sedation Stop: 08/11/22 16:45 Last Admin: 08/09/22 07:22 Dose: 20 mg Senna/Docusate Sodium (Docusate Sodium/Senna 50/8.6mg Tab) 2 tab PO HS [facility] Stop: 09/07/22 20:59 Last Admin: 08/08/22 19:51 Dose: Not Given Sodium Biphosphate/Sodium Phosphate (Sod Phosphate/Sod Biphosphate Enema 132 Ml Btl) 132 ml [place] ONE PRN PRN Reason: Constipation Stop: 09/07/22 16:27 Umeclidinium/Vilanterol (Umeclidinium/Vilanterol 62.5/25mcg 7 Puffs/Inhaler) 1 puffs INH QAM [facility] Stop: 09/08/22 08:59 Last Admin: 08/09/22 09:24 Dose: Not Given (4) Alcohol dependence Substance use status: unspecified alcohol-induced disorder Qualified Code(s): F10.29 - Alcohol dependence with unspecified alcohol-induced disorder (5) COPD (chronic obstructive pulmonary disease) COPD type: unspecified COPD Qualified Code(s): J44.9 - Chronic obstructive pulmonary disease, unspecified
[2022-08-09] MEDS: DOCUSATE SODIUM/SENNA 50/8.6MG TAB PO SCH (19:56)
[2022-08-09] MEDS: fentaNYL citrate PF 100 MCG/2 ML VIAL IV PRN (19:58)
[2022-08-09] MEDS: oxyCODONE HCL IR 5 MG TAB (IMMEDIATE RELEASE) PO PRN (23:20)
[2022-08-10] MEDS: ICU Protocol for HYPERglycemia SCH ×3 (00:45→10:09)
[2022-08-10] MEDS: propofoL 1,000 MG/100 ML VIAL IV SCH ×2 (00:46→07:43)
[2022-08-10] MEDS: POLYETHYLENE (MIRALAX) 17 GM PACK PO SCH ×3 (00:50→11:41)
[2022-08-10] MEDS: fentaNYL citrate PF 100 MCG/2 ML VIAL IV PRN ×2 (02:01→05:20)
[2022-08-10 05:43] LABS: Basophils # (auto) 0.02 K/uL (0-0.2); Basophils % (auto) 0.2 %; Hematocrit (blood only) 29.1 % (37.0-47.0); Hemoglobin 9.5 g/dl (12.0-16.0); Immature Granulocytes # (auto) 0.04 K/uL (0.01-0.20); Immature Granulocytes % (auto) 0.4 %; Lymphocytes # (auto) 1.69 K/uL (1.2-3.4); Lymphocytes % (auto) 17.7 %; Mean Corpuscular Hemoglobin 31.3 pg (25.0-34.0); Mean Corpuscular Hgb Conc 32.6 g/dL (32.0-36.0); Mean Corpuscular Volume 95.7 fL (80.0-100.0); Mean Platelet Volume 10.3 fL (9.4-12.4); Monocytes # (auto) 0.75 K/uL (0.11-0.59); Monocytes % (auto) 7.9 %; Neutrophils # (auto) 7.03 K/uL (1.40-6.50); Neutrophils % (auto) 73.8 %; Platelet Count 229 K/uL (130-400); RDW Coefficient of Variation 13.4 % (11.5-14.5); RDW Standard Deviation 46.6 fL (36.4-46.3); Red Blood Count 3.04 M/uL (4.20-5.40); White Blood Count 9.53 K/ul (4.8-10.8)
[2022-08-10 06:01] LABS: Magnesium 1.9 mg/dl (1.7-2.4)
[2022-08-10] MEDS: LEVOTHYROXINE SODIUM 75 MCG TABLET PO SCH (06:22)
[2022-08-10 07:16] LABS: BUN Creatinine Ratio 21.2 (10-20); Calcium 8.7 mg/dl (8.6-10.3); Creatinine Clr Calc Pharmacy 106.1 ml/min; Est GFR (African American) 116.2 ml/min; Est GFR (Non-African American) 100.3 ml/min; Potassium 3.7 mmol/L (3.5-5.1)
[2022-08-10] MEDS: dexMEDEtomidine 200 MCG/50 ML BAG IV SCH (07:16)
[2022-08-10] MEDS: ASPIRIN 81 MG ECTAB PO SCH (07:52)
[2022-08-10] MEDS: PANTOprazole 40 MG TAB PO SCH (07:53)
[2022-08-10] MEDS: oxyCODONE HCL IR 5 MG TAB (IMMEDIATE RELEASE) PO PRN ×2 (07:53→19:45)
[2022-08-10] MEDS: ATORVASTATIN 10 MG TAB PO SCH (07:53)
[2022-08-10] MEDS: UMECLIDINIUM/VILANTEROL 62.5/25MCG 7 PUFFS/INHALER INH SCH (07:53)
[2022-08-10] MEDS: dexAMETHasone 6 MG in SYRINGE 0 ML IV SCH (07:54)
[2022-08-10] MEDS: THIAMINE HCL 100 MG in SYRINGE 9 ML IV SCH (07:54)
[2022-08-10] MEDS: FLUTICASONE FUROATE 100MCG 14 PUFFS/INHALER INH SCH (07:54)
--- NOTE | 2022-08-10 07:54 | Critical Care Progress Note ---
Date of Service August 10, 2022 Assessment & Plan (1) Difficult airway for intubation: (2) Postoperative hematoma: (3) Cervical spine disease: (4) COPD (chronic obstructive pulmonary disease): (5) Alcohol dependence: Plan Impression: 67-year-old female status post ACDF with unfortunate postoperative hematoma requiring reintubation and evacuation hematoma. 24-hour events: No acute events overnight. Hemodynamically stable. Precedex has been weaned down. Tolerating diet. Recommendations NEURO -no current issues CARDIAC/VASCULAR - no current issues, hold metoprolol with precedex RESPIRATORY -postoperative hematoma: Appears resolved. Drain management per surgery. COPD appears stable. Continue as needed bronchodilators. No indication for additional steroids at this point time. GI/NUTRITION -PPI in place. Advance diet to regular RENAL/LYTES -ICU electrolyte replacement. Discontinue IV fluid -discontinue Mo ENDO - glycemic control per protocol. Restart oral medications including Synth roid HEME -hemoglobin slightly decreased today. Continue to follow. ID -no current issues. Continue to follow LINES/IV ACCESS - * PIVs x2 DVT PROPHYLAXIS -okay to restart DVT prophylaxis from my perspective but will defer to orthospine. The patient's critical care issues are resolved. Okay to transition out of the intensive care unit. Critical care will sign off. Feel free to contact us with questions or concerns Admission and Anticipated Discharge Date Admission Date: August 08, 2022 Subjective Patient seen and examined. EMR reviewed. Discussed with critical care JONNY overnight. No acute events. She is doing well. Her Precedex has been weaned off. She is tolerating a regular diet. She is breathing well. Her voice is normal. She is having no respiratory issues. She is quite pleasant and ready to dismiss out of the ICU Review of Systems Review of Systems: All systems reviewed & are unremarkable except as noted in Subjective Physical Exam Constitutional: WD/WN, vitals as above Neck: trachea midline, no thyromegaly Respiratory: normal respiratory effort, lungs clear to auscultation Cardiovascular: RRR, no murmur, no edema Gastrointestinal (Abdomen): normal bowel sounds, soft, nontender, no hepatosplenomegaly Musculoskeletal: Extremities: extremities normal to inspection Skin: no rashes, warm and dry Lymphatic: no cervical lymphadenopathy Results & Data Results & Data Vital Signs (Past 12 Hours) Vital Signs Temp Pulse Pulse Resp BP Pulse Ox O2 Del Method 08/10/22 07:00 53 L 16 99 08/10/22 07:00 95/61 L 08/10/22 07:09 50 L 16 99 Nasal Cannula 08/10/22 06:31 84 23 94 08/10/22 06:31 116/71 08/10/22 06:30 85 18 85 L 08/10/22 06:15 63 14 94 08/10/22 06:00 81 20 95 08/10/22 06:00 117/77 08/10/22 05:45 83 20 95 08/10/22 05:30 81 17 92 08/10/22 05:30 126/71 08/10/22 05:15 63 14 99 08/10/22 05:01 109/57 L 08/10/22 05:01 58 L 13 99 08/10/22 05:00 52 L 15 97 08/10/22 04:45 62 17 97 08/10/22 04:30 69 32 H 94 08/10/22 04:30 84/57 L 08/10/22 04:15 60 18 95 08/10/22 04:00 57 L 18 08/10/22 04:00 100/54 L 08/10/22 03:45 63 15 94 08/10/22 06:00 36.4 C 08/10/22 04:00 36.6 C 08/10/22 03:25 67 18 94 Nasal Cannula 08/10/22 03:30 67 15 94 08/10/22 03:30 98/63 L 08/10/22 03:15 59 L 13 95 08/10/22 03:00 55 L 12 98 08/10/22 03:00 111/57 L 08/10/22 02:45 53 L 13 98 08/10/22 02:30 54 L 12 98 08/10/22 02:30 95/55 L 08/10/22 02:15 56 L 15 97 08/10/22 02:00 54 L 15 97 08/10/22 02:00 98/56 L 08/10/22 01:45 77 14 96 08/10/22 01:31 80 12 96 08/10/22 01:31 116/35 L 08/10/22 01:30 78 19 87 L 08/10/22 01:15 75 36 H 96 08/10/22 01:01 77 17 95 08/10/22 01:00 72 17 92 08/10/22 00:45 81 12 96 08/10/22 00:31 81 20 98 08/10/22 00:31 129/66 08/10/22 00:30 83 26 H 08/10/22 00:15 86 20 98 08/10/22 00:00 82 19 96 08/10/22 00:00 121/69 08/09/22 23:45 79 22 98 08/09/22 23:30 55 L 14 96 08/09/22 23:30 111/65 08/09/22 23:23 109/65 08/09/22 23:23 62 17 98 08/09/22 23:15 65 25 H 97 08/09/22 23:00 57 L 15 99 08/09/22 22:45 56 L 15 99 08/09/22 22:30 73 19 97 08/09/22 22:30 131/76 08/09/22 22:17 109 H 08/09/22 22:00 81 14 95 08/09/22 22:00 142/99 H 08/09/22 21:45 56 L 13 95 08/09/22 21:30 57 L 16 94 08/09/22 21:30 121/61 08/09/22 21:15 81 15 91 08/09/22 21:02 65 17 97 08/09/22 21:02 125/73 08/09/22 21:00 83 15 94 08/09/22 20:45 64 15 97 08/09/22 20:30 81 16 96 08/09/22 20:30 131/79 08/09/22 20:15 61 14 94 08/10/22 03:00 99 High Flow Nasal Cannula 08/10/22 01:00 High Flow Nasal Cannula 08/09/22 22:00 High Flow Nasal Cannula 08/09/22 20:00 Aerosol Mask 08/09/22 20:00 08/09/22 23:05 57 L 08/09/22 22:38 67 18 98 Nasal Cannula O2 Flow Rate FiO2 08/10/22 07:00 08/10/22 07:00 08/10/22 07:09 4 08/10/22 06:31 08/10/22 06:31 08/10/22 06:30 08/10/22 06:15 08/10/22 06:00 08/10/22 06:00 08/10/22 05:45 08/10/22 05:30 08/10/22 05:30 08/10/22 05:15 08/10/22 05:01 08/10/22 05:01 08/10/22 05:00 08/10/22 04:45 08/10/22 04:30 08/10/22 04:30 08/10/22 04:15 08/10/22 04:00 08/10/22 04:00 08/10/22 03:45 08/10/22 06:00 08/10/22 04:00 08/10/22 03:25 4 08/10/22 03:30 08/10/22 03:30 08/10/22 03:15 08/10/22 03:00 08/10/22 03:00 08/10/22 02:45 08/10/22 02:30 08/10/22 02:30 08/10/22 02:15 08/10/22 02:00 08/10/22 02:00 08/10/22 01:45 08/10/22 01:31 08/10/22 01:31 08/10/22 01:30 08/10/22 01:15 08/10/22 01:01 08/10/22 01:00 08/10/22 00:45 08/10/22 00:31 08/10/22 00:31 08/10/22 00:30 08/10/22 00:15 08/10/22 00:00 08/10/22 00:00 08/09/22 23:45 08/09/22 23:30 08/09/22 23:30 08/09/22 23:23 08/09/22 23:23 08/09/22 23:15 08/09/22 23:00 08/09/22 22:45 08/09/22 22:30 08/09/22 22:30 08/09/22 22:17 08/09/22 22:00 08/09/22 22:00 08/09/22 21:45 08/09/22 21:30 08/09/22 21:30 08/09/22 21:15 08/09/22 21:02 08/09/22 21:02 08/09/22 21:00 08/09/22 20:45 08/09/22 20:30 08/09/22 20:30 08/09/22 20:15 08/10/22 03:00 4 08/10/22 01:00 6 08/09/22 22:00 10 08/09/22 20:00 08/09/22 20:00 40 08/09/22 23:05 08/09/22 22:38 8 Critical Care Results & Data Vital Signs (Past 12 Hours) Vital Signs Temp Pulse Pulse Resp BP Pulse Ox O2 Del Method 08/10/22 07:00 53 L 16 99 08/10/22 07:00 95/61 L 08/10/22 07:09 50 L 16 99 Nasal Cannula 08/10/22 06:31 84 23 94 08/10/22 06:31 116/71 08/10/22 06:30 85 18 85 L 08/10/22 06:15 63 14 94 08/10/22 06:00 81 20 95 08/10/22 06:00 117/77 08/10/22 05:45 83 20 95 08/10/22 05:30 81 17 92 08/10/22 05:30 126/71 08/10/22 05:15 63 14 99 08/10/22 05:01 109/57 L 08/10/22 05:01 58 L 13 99 08/10/22 05:00 52 L 15 97 08/10/22 04:45 62 17 97 08/10/22 04:30 69 32 H 94 08/10/22 04:30 84/57 L 08/10/22 04:15 60 18 95 08/10/22 04:00 57 L 18 08/10/22 04:00 100/54 L 08/10/22 03:45 63 15 94 08/10/22 06:00 36.4 C 08/10/22 04:00 36.6 C 08/10/22 03:25 67 18 94 Nasal Cannula 08/10/22 03:30 67 15 94 08/10/22 03:30 98/63 L 08/10/22 03:15 59 L 13 95 08/10/22 03:00 55 L 12 98 08/10/22 03:00 111/57 L 08/10/22 02:45 53 L 13 98 08/10/22 02:30 54 L 12 98 08/10/22 02:30 95/55 L 08/10/22 02:15 56 L 15 97 08/10/22 02:00 54 L 15 97 08/10/22 02:00 98/56 L 08/10/22 01:45 77 14 96 08/10/22 01:31 80 12 96 08/10/22 01:31 116/35 L 08/10/22 01:30 78 19 87 L 08/10/22 01:15 75 36 H 96 08/10/22 01:01 77 17 95 08/10/22 01:00 72 17 92 08/10/22 00:45 81 12 96 08/10/22 00:31 81 20 98 08/10/22 00:31 129/66 08/10/22 00:30 83 26 H 08/10/22 00:15 86 20 98 08/10/22 00:00 82 19 96 08/10/22 00:00 121/69 08/09/22 23:45 79 22 98 08/09/22 23:30 55 L 14 96 08/09/22 23:30 111/65 08/09/22 23:23 109/65 08/09/22 23:23 62 17 98 08/09/22 23:15 65 25 H 97 08/09/22 23:00 57 L 15 99 08/09/22 22:45 56 L 15 99 08/09/22 22:30 73 19 97 08/09/22 22:30 131/76 08/09/22 22:17 109 H 08/09/22 22:00 81 14 95 08/09/22 22:00 142/99 H 08/09/22 21:45 56 L 13 95 08/09/22 21:30 57 L 16 94 08/09/22 21:30 121/61 08/09/22 21:15 81 15 91 08/09/22 21:02 65 17 97 08/09/22 21:02 125/73 08/09/22 21:00 83 15 94 08/09/22 20:45 64 15 97 08/09/22 20:30 81 16 96 08/09/22 20:30 131/79 08/09/22 20:15 61 14 94 08/10/22 03:00 99 High Flow Nasal Cannula 08/10/22 01:00 High Flow Nasal Cannula 08/09/22 22:00 High Flow Nasal Cannula 08/09/22 20:00 Aerosol Mask 08/09/22 20:00 08/09/22 23:05 57 L 08/09/22 22:38 67 18 98 Nasal Cannula O2 Flow Rate FiO2 08/10/22 07:00 08/10/22 07:00 08/10/22 07:09 4 08/10/22 06:31 08/10/22 06:31 08/10/22 06:30 08/10/22 06:15 08/10/22 06:00 08/10/22 06:00 08/10/22 05:45 08/10/22 05:30 08/10/22 05:30 08/10/22 05:15 08/10/22 05:01 08/10/22 05:01 08/10/22 05:00 08/10/22 04:45 08/10/22 04:30 08/10/22 04:30 08/10/22 04:15 08/10/22 04:00 08/10/22 04:00 08/10/22 03:45 08/10/22 06:00 08/10/22 04:00 08/10/22 03:25 4 08/10/22 03:30 08/10/22 03:30 08/10/22 03:15 08/10/22 03:00 08/10/22 03:00 08/10/22 02:45 08/10/22 02:30 08/10/22 02:30 08/10/22 02:15 08/10/22 02:00 08/10/22 02:00 08/10/22 01:45 08/10/22 01:31 08/10/22 01:31 08/10/22 01:30 08/10/22 01:15 08/10/22 01:01 08/10/22 01:00 08/10/22 00:45 08/10/22 00:31 08/10/22 00:31 08/10/22 00:30 08/10/22 00:15 08/10/22 00:00 08/10/22 00:00 08/09/22 23:45 08/09/22 23:30 08/09/22 23:30 08/09/22 23:23 08/09/22 23:23 08/09/22 23:15 08/09/22 23:00 08/09/22 22:45 08/09/22 22:30 08/09/22 22:30 08/09/22 22:17 08/09/22 22:00 08/09/22 22:00 08/09/22 21:45 08/09/22 21:30 08/09/22 21:30 08/09/22 21:15 08/09/22 21:02 08/09/22 21:02 08/09/22 21:00 08/09/22 20:45 08/09/22 20:30 08/09/22 20:30 08/09/22 20:15 08/10/22 03:00 4 08/10/22 01:00 6 08/09/22 22:00 10 08/09/22 20:00 08/09/22 20:00 40 08/09/22 23:05 08/09/22 22:38 8 Lab & Micro Results (Past 24 Hours) RBC 3.04 M/uL (4.20-5.40) L 08/10/22 WBC 9.53 K/ul (4.8-10.8) 08/10/22 Hgb 9.5 g/dl (12.0-16.0) L 08/10/22 Hct 29.1 % (37.0-47.0) L 08/10/22 MCV 95.7 fL (80.0-100.0) 08/10/22 MCH 31.3 pg (25.0-34.0) 08/10/22 MCHC 32.6 g/dL (32.0-36.0) 08/10/22 RDW Standard Deviation 46.6 fL (36.4-46.3) H 08/10/22 RDW Coefficient of Variation 13.4 % (11.5-14.5) 08/10/22 Plt Count 229 K/uL (130-400) 08/10/22 MPV 10.3 fL (9.4-12.4) 08/10/22 Neutrophils (%) (Auto) 73.8 % 08/10/22 Lymphocytes (%) (Auto) 17.7 % 08/10/22 Monocytes # (Auto) 0.75 K/uL (0.11-0.59) H 08/10/22 Eosinophils # (Auto) 0.00 K/uL (0-0.50) 08/10/22 Immature Granulocyte % (Auto) 0.4 % 08/10/22 Neutrophils # (Auto) 7.03 K/uL (1.40-6.50) H 08/10/22 Lymphocytes # (Auto) 1.69 K/uL (1.2-3.4) 08/10/22 Monocytes # (Auto) 0.75 K/uL (0.11-0.59) H 08/10/22 Eosinophils # (Auto) 0.00 K/uL (0-0.50) 08/10/22 Basophils # (Auto) 0.02 K/uL (0-0.2) 08/10/22 Immature Granulocyte # (Auto) 0.04 K/uL (0.01-0.20) 3 Na 142 mmol/L (136-145) 08/10/22 K 3.7 mmol/L (3.5-5.1) 08/10/22 Cl 109 mmol/L (98-107) H 08/10/22 CO2 29 mmol/L (21-32) 08/10/22 Anion Gap 4 (3-11) 08/10/22 BUN 11 mg/dl (6-23) 08/10/22 Creatinine 0.52 mg/dl (0.6-1.2) L 08/10/22 Estimated GFR ( Amer) 116.2 ml/min 08/10/22 Estimated GFR (Non-Af Amer) 100.3 ml/min 08/10/22 BUN/Creatinine Ratio 21.2 (10-20) H 08/10/22 Glu 103 mg/dl (70-99(Fasting)) H 08/10/22 Ca 8.7 mg/dl (8.6-10.3) 08/10/22 Phosphorus Level 3.0 mg/dl (2.5-4.9) 08/10/22 Mg 1.9 mg/dl (1.7-2.4) 08/10/22 05:26 Calcium Level 8.7 mg/dl (8.6-10.3) 08/10/22 06:34 I & O Totals 24 Hours 08/09/22 08/10/22 08/11/22 06:59 06:59 06:59 Intake Total 2074.374 / 2074.374 2584.971 / 2584.971 1027.825 / 1027.825 Output Total 720 / 720 1335 / 1335 Balance 1354.374 / 4677.673 1118.971 / 8929.685 1823.825 / 1027.825 Cumulative 07/09/22 16:14 thru 08/10/22 07:44 Intake Total 5687.170 Output Total 5 Balance 3632.170 RT Ventilator Mngmt (Last Documented) Ventilator Ordered Settings Ventilator Support Mode Assist Control 08/09/22 11:46 Respiratory Rate 16 08/10/22 07:09 Ventilator Tidal Volume 380 08/09/22 11:46 Setting Minute Ventilation 6.8 08/09/22 11:13 Positive End Expiratory 5 08/09/22 11:46 Pressure Fraction of Inspired Oxygen 8 08/09/22 22:38 Peak Inspiratory Flow 34 08/09/22 11:13 Machine Comment weaned fi02 to 40% 08/09/22 07:41 Ventilator - PT Measurements Respiratory Rate 16 Exhaled Tidal Volume 380 Minute Ventilation 6.8 Peak Inspiratory Airway 16 Pressure Plateau Pressure 13 Respiratory Cycle Inspiratory: 1:2.7 Expiratory Ratio Inspiratory Phase Time 0.90 End-Tidal CO2 32 Static Lung Compliance 47.50 Dynamic Lung Compliance 34.55 Normal Static Lung Compliance 48.00 Patient Measurements Comment extubated patient to aerosol mask per dr east Coding Level of Care Code 03780 SUB INP/OBS CARE 2/35MIN Diagnoses Difficult airway for intubation T88.4XXA Postoperative hematoma Cervical spine disease M48.9 COPD (chronic obstructive pulmonary disease) J44.9 COPD type: unspecified COPD Alcohol dependence F10.29 Substance use status: unspecified alcohol-induced disorder (4) COPD (chronic obstructive pulmonary disease) COPD type: unspecified COPD Qualified Code(s): J44.9 - Chronic obstructive pulmonary disease, unspecified (5) Alcohol dependence Substance use status: unspecified alcohol-induced disorder Qualified Code(s): F10.29 - Alcohol dependence with unspecified alcohol-induced disorder
--- NOTE | 2022-08-10 10:11 | Orthopedic Progress Note ---
Date of Service August 10, 2022 Assessment & Plan (1) Myelopathy concurrent with and due to spinal stenosis of cervical region: Plan: At this time she has been to be transferred to orthopedic floor. We will maintain the GLEN drain and anticipate discharge home tomorrow. Admission and Anticipated Discharge Date Admission Date: August 08, 2022 Subjective Patient is feeling very good today. She has no arm pain. She is swallowing well. Physical Exam Physical Exam: On exam she is alert alert and oriented. She is asked strength testing upper extremities. The drain is functioning. Results & Data Vital Signs (Past 12 Hours) Vital Signs Temp Pulse Pulse Resp BP Pulse Ox O2 Del Method 08/10/22 07:00 53 L 16 99 08/10/22 07:00 95/61 L 08/10/22 07:09 50 L 16 99 Nasal Cannula 08/10/22 06:31 84 23 94 08/10/22 06:31 116/71 08/10/22 06:30 85 18 85 L 08/10/22 06:15 63 14 94 08/10/22 06:00 81 20 95 08/10/22 06:00 117/77 08/10/22 05:45 83 20 95 08/10/22 05:30 81 17 92 08/10/22 05:30 126/71 08/10/22 05:15 63 14 99 08/10/22 05:01 109/57 L 08/10/22 05:01 58 L 13 99 08/10/22 05:00 52 L 15 97 08/10/22 04:45 62 17 97 08/10/22 04:30 69 32 H 94 08/10/22 04:30 84/57 L 08/10/22 04:15 60 18 95 08/10/22 04:00 57 L 18 08/10/22 04:00 100/54 L 08/10/22 03:45 63 15 94 08/10/22 06:00 36.4 C 08/10/22 04:00 36.6 C 08/10/22 03:25 67 18 94 Nasal Cannula 08/10/22 03:30 67 15 94 08/10/22 03:30 98/63 L 08/10/22 03:15 59 L 13 95 08/10/22 03:00 55 L 12 98 08/10/22 03:00 111/57 L 08/10/22 02:45 53 L 13 98 08/10/22 02:30 54 L 12 98 08/10/22 02:30 95/55 L 08/10/22 02:15 56 L 15 97 08/10/22 02:00 54 L 15 97 08/10/22 02:00 98/56 L 08/10/22 01:45 77 14 96 08/10/22 01:31 80 12 96 08/10/22 01:31 116/35 L 08/10/22 01:30 78 19 87 L 08/10/22 01:15 75 36 H 96 08/10/22 01:01 77 17 95 08/10/22 01:00 72 17 92 08/10/22 00:45 81 12 96 08/10/22 00:31 81 20 98 08/10/22 00:31 129/66 08/10/22 00:30 83 26 H 08/10/22 00:15 86 20 98 08/10/22 00:00 82 19 96 08/10/22 00:00 121/69 08/09/22 23:45 79 22 98 08/09/22 23:30 55 L 14 96 08/09/22 23:30 111/65 08/09/22 23:23 109/65 08/09/22 23:23 62 17 98 08/09/22 23:15 65 25 H 97 08/09/22 23:00 57 L 15 99 08/09/22 22:45 56 L 15 99 08/09/22 22:30 73 19 97 08/09/22 22:30 131/76 08/09/22 22:17 109 H 08/10/22 03:00 99 High Flow Nasal Cannula 08/10/22 01:00 High Flow Nasal Cannula 08/09/22 23:05 57 L 08/09/22 22:38 67 18 98 Nasal Cannula O2 Flow Rate FiO2 08/10/22 07:00 08/10/22 07:00 08/10/22 07:09 4 08/10/22 06:31 08/10/22 06:31 08/10/22 06:30 08/10/22 06:15 08/10/22 06:00 08/10/22 06:00 08/10/22 05:45 08/10/22 05:30 08/10/22 05:30 08/10/22 05:15 08/10/22 05:01 08/10/22 05:01 08/10/22 05:00 08/10/22 04:45 08/10/22 04:30 08/10/22 04:30 08/10/22 04:15 08/10/22 04:00 08/10/22 04:00 08/10/22 03:45 08/10/22 06:00 08/10/22 04:00 08/10/22 03:25 4 08/10/22 03:30 08/10/22 03:30 08/10/22 03:15 08/10/22 03:00 08/10/22 03:00 08/10/22 02:45 08/10/22 02:30 08/10/22 02:30 08/10/22 02:15 08/10/22 02:00 08/10/22 02:00 08/10/22 01:45 08/10/22 01:31 08/10/22 01:31 08/10/22 01:30 08/10/22 01:15 08/10/22 01:01 08/10/22 01:00 08/10/22 00:45 08/10/22 00:31 08/10/22 00:31 08/10/22 00:30 08/10/22 00:15 08/10/22 00:00 08/10/22 00:00 08/09/22 23:45 08/09/22 23:30 08/09/22 23:30 08/09/22 23:23 08/09/22 23:23 08/09/22 23:15 08/09/22 23:00 08/09/22 22:45 08/09/22 22:30 08/09/22 22:30 08/09/22 22:17 08/10/22 03:00 4 08/10/22 01:00 6 08/09/22 23:05 08/09/22 22:38 8
--- NOTE | 2022-08-10 11:18 | Hospitalist Progress Note ---
Date of Service August 10, 2022 Assessment & Plan (1) Myelopathy concurrent with and due to spinal stenosis of cervical region: (2) Cervical spine disease: (3) Postoperative hematoma: (4) Alcohol dependence: (5) COPD (chronic obstructive pulmonary disease): (6) Hypertension: (7) HLD (hyperlipidemia): (8) Hypothyroidism: Plan 67-year-old female with cervical spinal stenosis status post ACDF on 08/08 completed by postoperative hematoma requiring intubation and evacuation of h ematoma patient. Patient was admitted to ICU afterwards and was on mechanical ventilation. Extubated yesterday 08/09/22, uneventful and has been stable since. Stable to transfer to floor today. Cervical spinal stenosis status post ACDF complicated by postoperative hematoma requiring reintubation and evacuation of hematoma 08/08/22 -Stable for transfer to the floor. -DVT prophylaxis, diet, activities, pain management per primary H/o alcohol abuse-watch out for for withdrawal symptoms. Currently none. Recommend quitting. COPD (chronic obstructive pulmonary disease): No exacerbation. Hypertension: BP on lower side. Continue to hold antihypertensive. Resume as indicated HLD (hyperlipidemia): continue lipitor Hypothyroidism:continue synthroid DVT ppx- per primary team Dispo- Per primary team A total of 40 minutes were spent taking care for the patient reviewing chart, evaluating patient at bedside and discussing with care team. Admission and Anticipated Discharge Date Admission Date: August 08, 2022 Subjective patient was seen and examined at bedside. She feels much better. Pain is controlled. Denies any dysphagia, dysphonia. No fever or chills. Tolerating diet well. Mo catheter is out. Physical Exam Physical Exam: General: Sitting in bed, awake and alert conversing well, breathing comfortably on room air HEENT: Neck dressing noted with GLEN drain with serosanguineous output Chest: Clear breath sounds bilaterally, no wheezes or crackles CVS: Regular rate and rhythm, normal heart sounds, no murmur Abdomen: Soft, non tender, not distended, normal bowel sounds Neuro: Awake, alert, oriented, conversing well nonfocal Extremities: No cyanosis, clubbing or edema Results & Data Results & Data Vital Signs (Past 12 Hours) Vital Signs Temp Pulse Pulse Resp BP Pulse Ox O2 Del Method 08/10/22 08:00 83 21 96 Room Air 08/10/22 08:00 101/57 L 08/10/22 10:40 71 08/10/22 08:00 36.8 C 08/10/22 08:00 Room Air 08/10/22 07:00 53 L 16 99 08/10/22 07:00 95/61 L 08/10/22 07:09 50 L 16 99 Nasal Cannula 08/10/22 06:31 84 23 94 08/10/22 06:31 116/71 08/10/22 06:30 85 18 85 L 08/10/22 06:15 63 14 94 08/10/22 06:00 81 20 95 08/10/22 06:00 117/77 08/10/22 05:45 83 20 95 08/10/22 05:30 81 17 92 08/10/22 05:30 126/71 08/10/22 05:15 63 14 99 08/10/22 05:01 109/57 L 08/10/22 05:01 58 L 13 99 08/10/22 05:00 52 L 15 97 08/10/22 04:45 62 17 97 08/10/22 04:30 69 32 H 94 08/10/22 04:30 84/57 L 08/10/22 04:15 60 18 95 08/10/22 04:00 57 L 18 08/10/22 04:00 100/54 L 08/10/22 03:45 63 15 94 08/10/22 06:00 36.4 C 08/10/22 04:00 36.6 C 08/10/22 03:25 67 18 94 Nasal Cannula 08/10/22 03:30 67 15 94 08/10/22 03:30 98/63 L 08/10/22 03:15 59 L 13 95 08/10/22 03:00 55 L 12 98 08/10/22 03:00 111/57 L 08/10/22 02:45 53 L 13 98 08/10/22 02:30 54 L 12 98 08/10/22 02:30 95/55 L 08/10/22 02:15 56 L 15 97 08/10/22 02:00 54 L 15 97 08/10/22 02:00 98/56 L 08/10/22 01:45 77 14 96 08/10/22 01:31 80 12 96 08/10/22 01:31 116/35 L 08/10/22 01:30 78 19 87 L 08/10/22 01:15 75 36 H 96 08/10/22 01:01 77 17 95 08/10/22 01:00 72 17 92 08/10/22 00:45 81 12 96 08/10/22 00:31 81 20 98 08/10/22 00:31 129/66 08/10/22 00:30 83 26 H 08/10/22 00:15 86 20 98 08/10/22 00:00 82 19 96 08/10/22 00:00 121/69 08/09/22 23:45 79 22 98 08/09/22 23:30 55 L 14 96 08/09/22 23:30 111/65 08/09/22 23:23 109/65 08/09/22 23:23 62 17 98 08/09/22 23:15 65 25 H 97 08/10/22 03:00 99 High Flow Nasal Cannula 08/10/22 01:00 High Flow Nasal Cannula O2 Flow Rate 08/10/22 08:00 08/10/22 08:00 08/10/22 10:40 08/10/22 08:00 08/10/22 08:00 08/10/22 07:00 08/10/22 07:00 08/10/22 07:09 4 08/10/22 06:31 08/10/22 06:31 08/10/22 06:30 08/10/22 06:15 08/10/22 06:00 08/10/22 06:00 08/10/22 05:45 08/10/22 05:30 08/10/22 05:30 08/10/22 05:15 08/10/22 05:01 08/10/22 05:01 08/10/22 05:00 08/10/22 04:45 08/10/22 04:30 08/10/22 04:30 08/10/22 04:15 08/10/22 04:00 08/10/22 04:00 08/10/22 03:45 08/10/22 06:00 08/10/22 04:00 08/10/22 03:25 4 08/10/22 03:30 08/10/22 03:30 08/10/22 03:15 08/10/22 03:00 08/10/22 03:00 08/10/22 02:45 08/10/22 02:30 08/10/22 02:30 08/10/22 02:15 08/10/22 02:00 08/10/22 02:00 08/10/22 01:45 08/10/22 01:31 08/10/22 01:31 08/10/22 01:30 08/10/22 01:15 08/10/22 01:01 08/10/22 01:00 08/10/22 00:45 08/10/22 00:31 08/10/22 00:31 08/10/22 00:30 08/10/22 00:15 08/10/22 00:00 08/10/22 00:00 08/09/22 23:45 08/09/22 23:30 08/09/22 23:30 08/09/22 23:23 08/09/22 23:23 08/09/22 23:15 08/10/22 03:00 4 08/10/22 01:00 6 Laboratory Results Short CBC 08/10/22 Range/Units 05:26 WBC 9.53 (4.8-10.8) K/ul Hgb 9.5 L (12.0-16.0) g/dl Hct 29.1 L (37.0-47.0) % Plt Count 229 (130-400) K/uL BMP 08/10/22 06:34 Sodium 142 Potassium 3.7 Chloride 109 H Carbon Dioxide 29 BUN 11 Creatinine 0.52 L Glucose 103 H Calcium 8.7 Medications Administered Current Inpatient Medications Acetaminophen (Acetaminophen 500 Mg Tab) 1,000 mg PO Q8H PRN PRN Reason: MILD Pain Scale 1,2,3 & Pre PT Stop: 09/07/22 16:27 Last Admin: 08/10/22 00:56 Dose: 1,000 mg Al Hydrox/Mg Hydrox/Simethicone (Aluminum/Magnesium Susp 30 Ml Udc) 30 ml PO Q6H PRN PRN Reason: Dyspepsia Stop: 09/07/22 16:27 Albuterol (Albuterol Hfa 8 Gm Inhaler) 1 puffs INH Q6R PRN PRN Reason: shortness of breath or wheezing Stop: 09/07/22 18:59 Aspirin (Aspirin 81 Mg Ectab) 81 mg PO QAM NA[facility] Stop: 09/08/22 08:59 Last Admin: 08/10/22 07:52 Dose: 81 mg Atorvastatin Calcium (Atorvastatin 10 Mg Tab) 10 mg PO QAM [facility] Stop: 09/08/22 08:59 Last Admin: 08/10/22 07:53 Dose: 10 mg Bisacodyl (Bisacodyl 10 Mg Supp) 10 mg MS DAILY PRN PRN Reason: Constipation Stop: 09/07/22 16:27 Dextrose (Dextrose 50% 50 Ml Syringe) 25 - 50 ml IV UD PRN; Protocol PRN Reason: Hypoglycemia Protocol Stop: 09/07/22 18:14 Diphenhydramine HCl (Diphenhydramine Capsule 25 Mg Cap) 25 mg PO Q6H PRN PRN Reason: Allergic Rhinitis/Insomnia Stop: 09/07/22 16:27 Epinephrine (Racepinephrine 2.25% Nebu Soln 0.5 Ml Vial) 0.5 ml INH NOW PRN PRN Reason: If stridor present Famotidine (Famotidine 20 Mg Tab) 20 mg PO Q12H PRN PRN Reason: Dyspepsia Stop: 09/07/22 16:27 Fluticasone Furoate (Fluticasone Furoate 100mcg 14 Puffs/Inhaler) 1 puffs INH [facility] Stop: 09/08/22 08:59 Last Admin: 08/10/22 07:54 Dose: 1 puffs Glucagon (Glucagon For Inj 1 Mg Vial) 1 mg SQ UD PRN; Protocol PRN Reason: Hypoglycemia Protocol Stop: 09/07/22 18:14 Glucose (Glucose 10 Tab/Tube) 4 - 8 tab PO UD PRN; Protocol PRN Reason: Hypoglycemia Treatment Stop: 09/07/22 18:14 Glucose (Glucose 40% Gel 15 Gm Tube) 15 - 30 gm PO UD PRN; Protocol PRN Reason: Hypoglycemia Protocol Stop: 09/07/22 18:14 Promethazine HCl 12.5 mg/ (Sodium Chloride) 50.5 mls @ 202 mls/hr IV Q6H PRN PRN Reason: Nausea &/or Vomiting Stop: 09/07/22 16:27 Dexamethasone 6 mg/ Syringe 1.5 mls @ 1 mls/min IV DAILY [facility] Stop: 08/11/22 09:02 Last Admin: 08/10/22 07:54 Dose: 1 mls/min Thiamine HCl 100 mg/ Syringe 10 mls @ 2 mls/min IV BID [facility] Stop: 09/08/22 08:59 Last Admin: 08/10/22 07:54 Dose: 2 mls/min Influenza Virus Vaccine Quadrival (Do Not Administer Flu Vaccine) 1 each N/A PRN PRN PRN Reason: Notification Stop: 09/07/22 16:27 Levothyroxine Sodium (Levothyroxine Sodium 75 Mcg Tablet) 75 mcg PO DAILYBB [facility] Stop: 09/08/22 06:29 Last Admin: 08/10/22 06:22 Dose: 75 mcg Magnesium Hydroxide (Magnesium Hydroxide Susp 30 Ml Udc) 30 ml PO Q24H PRN PRN Reason: Constipation Stop: 09/07/22 16:27 Miscellaneous (Carbohydrates For Hypoglycemia ) 15 - 30 gm PO UD PRN PRN Reason: Hypoglycemia Protocol Stop: 09/07/22 18:14 Naloxone HCl (Naloxone Hcl 0.4 Mg/1 Ml Vial/Carp) 0.1 mg IV Q5M PRN PRN Reason: Oversedation/Resp depression Stop: 09/07/22 16:27 Ondansetron HCl (Ondansetron Inj 2 Mg/Ml 2 Ml Vial) 4 mg IV Q6H PRN PRN Reason: Nausea &/or Vomiting Stop: 09/07/22 16:27 Oxycodone HCl (Oxycodone Hcl Ir 5 Mg Tab (Immediate Release)) 5 - 10 mg PO Q4H PRN PRN Reason: Pain & Pre PT Stop: 08/22/22 16:27 Last Admin: 08/10/22 07:53 Dose: 10 mg Pantoprazole Sodium (Pantoprazole 40 Mg Tab) 40 mg PO QAM [facility] Stop: 09/08/22 08:59 Last Admin: 08/10/22 07:53 Dose: 40 mg Pneumococcal Polyvalent Vaccine (Do Not Administer Pneumococcal Vaccine) 1 each N/A PRN PRN PRN Reason: Notification Stop: 09/07/22 16:27 Polyethylene Glycol (Polyethylene (Miralax) 17 Gm Pack) 17 gm PO Q6 [facility] Stop: 09/08/22 05:59 Last Admin: 08/10/22 06:22 Dose: 17 gm Senna/Docusate Sodium (Docusate Sodium/Senna 50/8.6mg Tab) 2 tab PO HS [facility] Stop: 09/07/22 20:59 Last Admin: 08/09/22 19:56 Dose: 2 tab Sodium Biphosphate/Sodium Phosphate (Sod Phosphate/Sod Biphosphate Enema 132 Ml Btl) 132 ml MS ONE PRN PRN Reason: Constipation Stop: 09/07/22 16:27 Umeclidinium/Vilanterol (Umeclidinium/Vilanterol 62.5/25mcg 7 Puffs/Inhaler) 1 puffs INH QAM [facility] Stop: 09/08/22 08:59 Last Admin: 08/10/22 07:53 Dose: 1 puffs (4) Alcohol dependence Substance use status: unspecified alcohol-induced disorder Qualified Code(s): F10.29 - Alcohol dependence with unspecified alcohol-induced disorder (5) COPD (chronic obstructive pulmonary disease) COPD type: unspecified COPD Qualified Code(s): J44.9 - Chronic obstructive pulmonary disease, unspecified
[2022-08-10] MEDS: DOCUSATE SODIUM/SENNA 50/8.6MG TAB PO SCH (19:45)
[2022-08-11] MEDS: LEVOTHYROXINE SODIUM 75 MCG TABLET PO SCH (05:56)
[2022-08-11] MEDS: oxyCODONE HCL IR 5 MG TAB (IMMEDIATE RELEASE) PO PRN (06:00)
[2022-08-11 07:00] LABS: Basophils # (auto) 0.03 K/uL (0-0.2); Basophils % (auto) 0.3 %; Eosinophils # (auto) 0.02 K/uL (0-0.50); Eosinophils % (auto) 0.2 %; Hemoglobin 11.7 g/dl (12.0-16.0); Immature Granulocytes # (auto) 0.08 K/uL (0.01-0.20); Immature Granulocytes % (auto) 0.8 %; Lymphocytes % (auto) 23.9 %; Mean Corpuscular Hemoglobin 31.8 pg (25.0-34.0); Mean Corpuscular Hgb Conc 33.4 g/dL (32.0-36.0); Mean Corpuscular Volume 95.1 fL (80.0-100.0); Mean Platelet Volume 10.3 fL (9.4-12.4); Monocytes # (auto) 0.88 K/uL (0.11-0.59); Monocytes % (auto) 9.1 %; Neutrophils # (auto) 6.33 K/uL (1.40-6.50); Neutrophils % (auto) 65.7 %; Platelet Count 300 K/uL (130-400); RDW Coefficient of Variation 13.2 % (11.5-14.5); Red Blood Count 3.68 M/uL (4.20-5.40); White Blood Count 9.64 K/ul (4.8-10.8)
[2022-08-11 07:14] LABS: Magnesium 1.9 mg/dl (1.7-2.4); Phosphorus 3.7 mg/dl (2.5-4.9)
[2022-08-11] MEDS: PANTOprazole 40 MG TAB PO SCH (08:12)
[2022-08-11] MEDS: ASPIRIN 81 MG ECTAB PO SCH (08:12)
[2022-08-11] MEDS: ATORVASTATIN 10 MG TAB PO SCH (08:12)
[2022-08-11] MEDS: FLUTICASONE FUROATE 100MCG 14 PUFFS/INHALER INH SCH (08:13)
[2022-08-11] MEDS: UMECLIDINIUM/VILANTEROL 62.5/25MCG 7 PUFFS/INHALER INH SCH (08:13)
[2022-08-11] MEDS: dexAMETHasone 6 MG in SYRINGE 0 ML IV SCH (08:13)
[2022-08-11] MEDS ORDERED: THIAMINE HCL 100 MG TAB PO SCH (09:00)
--- NOTE | 2022-08-11 11:02 | Discharge Summary ---
Date of Service August 11, 2022 Admission HPI Per Admitting Provider This is a 66-year-old female who presents with chronic persistent neck and arm pain after failing course of nonoperative care she is here for surgical invention. Principal Diagnosis Cervical myeloradiculopathy Discharge Data Allergies Allergy/AdvReac Type Severity Reaction Status Date / Time venlafaxine Allergy Severe severe Verified 08/08/22 08:29 cough, throat tightness nickel Allergy Mild Rash Verified 08/08/22 08:29 Consultations 08/08/22 16:28 Consult Hospitalist Routine 08/08/22 16:55 Consult Dental Technician Instructor Routine Procedures Performed Operation Date: 08/08/22 09:45 Actual Procedures p C5-C7 Anterior Cervical Discectomy and Fusion, C6 Corpectomy, Spinal Cord Monitoring(Not Applicable) - Morales Greenfield DO Ordered Studies 08/08/22 09:45 FL cervical 2-3V Routine Hospital Course (1) Myelopathy concurrent with and due to spinal stenosis of cervical region: Patient underwent anterior cervical corpectomy. Unfortunately she had postop seroma requiring evacuation of the hematoma the same day. She was intubated for 24 hours while we allowed the swelling to reduce. She was subsequently extubated and doing quite well. She is up and ambulating swallowing well. Arm symptoms improved. Excellent strength testing. GLEN drain decreasing appropriately. Subsequent discharge home. Discharge orders instructions on the chart for further review. Total Time Total Time Spent Total Time Spent (In Minutes): 20 minutes Discharge Plan Discharge Items Patient Disposition: Home - Self-Care Reason For Visit: Spinal Stenosis, Cervical Region Discharge Diagnosis: Cervical spinal stenosis with myeloradiculopathy Activity: As commented below Non-emergency contact: Primary Care Provider Call non-emergency contact if: you have any medication questions Follow-up/Referrals: Liliane Pena DO [Primary Care Provider] - Diet: Regular Addtl Attending Provider Instructions: ACTIVITY RECOMMENDATIONS: SELF CARE INSTRUCTIONS AFTER CERVICAL FUSIONS 1. No smoking. Smoking drastically decreases the chance of a solid fusion. 2. No bending, lifting more than 5 pounds, or twisting (roll like a log when turning in bed). 3. You may shower 3 days after surgery. Thoroughly dry wound. Do not soak in the tub. 4. Cervical collar: Must be worn at all times including sleeping. You may remove the brace only to bath, eat and if you are sitting in a recliner. 5. Please walk as much as you can for exercise. Gradually increase the distance that you walk as your endurance increases. SPECIAL CARE INSTRUCTIONS: VERY IMPORTANT TO READ AND REVIEW A. Do not take any anti-inflammatory medications (i.e. Indocin, Advil, Aspirin, Naprosyn, Aleve, Motrin, etc.) as these may inhibit the chance of a solid fusion. Tylenol is okay to take. B. Your surgical incision has been closed with a cosmetic suture under the skin that will dissolve in about 6 weeks. In 14 days, you can use a pair of clean scissors and cut the suture that is left outside of the skin at the ends of your incision. C. Complications are uncommon, but please contact us if you have any signs or symptoms of: 1. wound infection (fever higher than 102.5 degrees F, redness, separation of wound, drainage, or increasing pain from the incision) 2. blood clots in legs (pain, swelling, redness and warmth in legs) 3. urinary tract infection (fever higher than 102.5 degrees, burning upon urination or increased frequency of urination) 4. nerve problems (inability to walk on your toes or heels, numbness, loss of bowel or bladder control) 5. any other symptoms that concern you. D. Please call the office at if you have any concerns or questions about your operation or recovery. MANAGING PAIN AFTER SPINAL SURGERY 1. Narcotic medication is intended for short-term use and will be provided for surgical pain. Surgical pain usually lasts for a period of 4-6 weeks. Narcotic medication includes Percocet, Vicodin, Darvocet, Tylenol #3 or Lortab. 2. Longer-term pain is more appropriately treated with non-narcotic medication such as Tylenol ES. 3. Muscle spasm is not appropriately treated with narcotics. Muscle relaxers such as Soma, Flexeril or Skelaxin can be used along with Tylenol ES. 4. Remember that we all live with some "aches and pains". This is not unusual or uncommon after an injury or as we get older. 5. We will provide appropriate medication within the normal guidelines of their prescribed use. We will also be very cautious and aware of potential abuse and extended duration of patients' medication needs. 6. Please allow 2-3 days to process refills. Prescriptions will not be mailed but must be picked up at the office. FOLLOW UP VISIT: Keep your scheduled follow-up appointment. Any questions, please call the office at . Pending Studies at Discharge: No Stand-Alone Forms: My [facility], Smoking Cessation Medications and DC Order Prescriptions: New tramadol 50 mg tablet 50 mg PO Q6H PRN (Reason: pain, moderate) Qty: 30 0RF oxycodone-acetaminophen [Percocet] 5-325 mg tablet 1 tab PO Q8H Qty: 20 0RF Continued atorvastatin 10 mg tablet 10 mg PO QAM Patient Comments: 07/23/21 per pt has not been taking this medication due to severe sweating that has been happening pantoprazole 20 mg tablet,delayed release (DR/EC) 20 mg PO QAM levothyroxine 75 mcg tablet 75 mcg PO QAM albuterol sulfate 90 mcg/actuation HFA aerosol inhaler 1 inh inhalation Q6H PRN (Reason: shortness of breath or wheezing) Qty: 8.5 0RF metoprolol succinate 50 mg Tablet Extended Release 24 Hr 50 mg PO QAM diclofenac sodium 1 % Gel 2 g TOPICAL QID PRN (Reason: neck pain) Rx Instructions: apply to single elbow, wrist or hand; for hand includes palm/fingers/back of hand aspirin 81 mg Capsule 81 mg PO QAM acetaminophen 325 mg Tablet 650 mg PO BID cyanocobalamin (vitamin B-12) 100 mcg Tablet 100 mcg PO QAM Trelegy Ellipta 100-62.5-25 mcg blister with device 1 inh INHALATION QAM Discharge Orders: Discharge Order (Routine); Ordered 08/11/22 Ordered By: Morales Greenfield Admission Data Admit Date/Time: 08/08/22 11:57 Attending Provider: Morales Greenfield Admit Provider: Morales Greenfield Primary Care Provider: Liliane Pena Other Providers: Gabe Chen ; Melani Blackman ; Morales Gamboa
--- NOTE | 2022-08-11 12:55 | Hospitalist Progress Note ---
Date of Service August 11, 2022 Assessment & Plan (1) Myelopathy concurrent with and due to spinal stenosis of cervical region: (2) Cervical spine disease: (3) Postoperative hematoma: (4) Alcohol dependence: (5) COPD (chronic obstructive pulmonary disease): (6) Hypertension: (7) HLD (hyperlipidemia): (8) Hypothyroidism: Plan 67-year-old female with cervical spinal stenosis status post ACDF on 08/08 completed by postoperative hematoma requiring intubation and evacuation of h ematoma patient. Patient was admitted to ICU afterwards and was on mechanical ventilation. Cervical spinal stenosis status post ACDF complicated by postoperative hematoma requiring reintubation and evacuation of hematoma 08/08/22-managed in ICU afterwards on mechanical ventilation. Extubated 08/09, uneventful and has been stable since. Transferred to the floor 08/10. Continues to do well. Further management per primary team. Acute hypoxic respiratory failure, or postoperative completion of care-resolved. See above. H/o alcohol abuse-watch out for for withdrawal symptoms. Currently none. Rec ommend quitting. COPD (chronic obstructive pulmonary disease): No exacerbation. Hypertension: BP is reported, resume home medication. Hyperlipidemia: continue lipitor Hypothyroidism:continue synthroid DVT ppx- per primary team Dispo- Per primary team. Admission and Anticipated Discharge Date Admission Date: August 08, 2022 Subjective Patient was seen and examined at bedside. She did not have a good night because of right shoulder and neck pain. IV pain medicine helped. No other issues. Denies dysphagia, dysphonia, dyspnea. Tolerating diet well. Voiding without issues. Had a bowel movement. Review of Systems Review of Systems: All systems reviewed & are unremarkable except as noted in Subjective Physical Exam Physical Exam: General: Lying in bed, on cervical collar, breathing comfortably room air HEENT: Neck dressing noted with GLEN drain with serosanguineous output Chest: Clear breath sounds bilaterally, no wheezes or crackles CVS: Regular rate and rhythm, normal heart sounds, no murmur Abdomen: Soft, non tender, not distended, normal bowel sounds Neuro: Awake, alert, oriented, conversing well nonfocal Extremities: No cyanosis, clubbing or edema Results & Data Results & Data Vital Signs (Past 12 Hours) Vital Signs Temp Pulse Pulse Resp BP BP Pulse Ox 08/11/22 11:04 36.8 C 74 88 16 129/78 149/79 H 98 08/11/22 07:47 36.8 C 88 16 129/78 98 O2 Del Method 08/11/22 11:04 08/11/22 07:47 Room Air Laboratory Results Short CBC 08/11/22 Range/Units 06:24 WBC 9.64 (4.8-10.8) K/ul Hgb 11.7 L (12.0-16.0) g/dl Hct 35.0 L (37.0-47.0) % Plt Count 300 (130-400) K/uL (4) Alcohol dependence Substance use status: unspecified alcohol-induced disorder Qualified Code(s): F10.29 - Alcohol dependence with unspecified alcohol-induced disorder (5) COPD (chronic obstructive pulmonary disease) COPD type: unspecified COPD Qualified Code(s): J44.9 - Chronic obstructive pulmonary disease, unspecified
--- NOTE | 2022-08-16 13:55 | Coding Query ---
Acute Hypoxic Respiratory Failure is Postoperative Complication CODING QUERY To promote full compliance with coding requirements relating to patient care, provider participation is requested in all cases of program counselor uncertainty. Please assist us with the question(s) below: Coding Question(s): The 08/11/22 Hospitalist Progress Note documents, "Acute hypoxic respiratory failure, or postoperative completion of care-resolved. See above", and above, there is documentation of, "67-year-old female with cervical spinal stenosis status post ACDF on 08/08 completed by postoperative hematoma requiring intubation and evacuation of hematoma patient. Patient was admitted to ICU afterwards and was on mechanical ventilation. Cervical spinal stenosis status post ACDF complicated by postoperative hematoma requiring reintubation and evacuation of hematoma 08/08/22-managed in ICU afterwards on mechanical ventilation. Extubated 08/09, uneventful and has been stable since. Transferred to the floor 08/10. Continues to do well. Further management per primary team". It is not clear if the Acute Hypoxic Respiratory Failure is "postoperative completion" of care or postoperative complication. Please specify below, in your clinical opinion, regarding Acute Hypoxic Respiratory Failure: ( ) Acute Hypoxic Respiratory Failure is Postoperative Complication ( ) Acute Hypoxic Respiratory Failure is Not Postoperative Complication ( ) Acute Hypoxic Respiratory Failure is Other: Please Specify Physician's Response(s): Thank you Annie Lindsay Principal Diagnosis: "that condition established after study, to be chiefly responsible for occasioning the admission of the patient to the hospital for care." Co-Existing Principal Diagnosis: "when two or more diagnoses equally meet the criteria for principal diagnosis as determined by the circumstances of admission, diagnostic work up, and/or therapy provided, and the Alphabetic Index, Tabular List, or another coding guideline does not provide sequencing direction, any one of the diagnoses may be sequenced first." "When the physician has documented what appears to be a current diagnosis in the body of the record, but has not included the diagnosis in the final diagnostic statement, the physician should be asked whether the diagnosis should be added." (Source Coding [facility] 2 QTR90. p3-4) KAILEY
== END 2022-08-11 12:13 | disposition home or self-care (01) | DRG 471 ==
LOC: ASU 08:08 → 1E 11:57 → 3E 08-10 15:43
DX: Z79.51 Long term (current) use of inhaled steroids; Y92.239 Unspecified place in hospital as the place of occurrence of the external cause; M96.840 Postprocedural hematoma of a musculoskeletal structure following a musculoskeletal system procedure; I10 Essential (primary) hypertension; Z88.8 Allergy status to other drugs, medicaments and biological substances; Z91.048 Other nonmedicinal substance allergy status; F10.20 Alcohol dependence, uncomplicated; Z79.890 Hormone replacement therapy; R73.03 Prediabetes; K21.9 Gastro-esophageal reflux disease without esophagitis; J44.9 Chronic obstructive pulmonary disease, unspecified; M54.12 Radiculopathy, cervical region; E78.5 Hyperlipidemia, unspecified; J95.821 Acute postprocedural respiratory failure; G99.2 Myelopathy in diseases classified elsewhere; Y83.8 Other surgical procedures as the cause of abnormal reaction of the patient, or of later complication, without mention of misadventure at the time of the procedure; M48.02 Spinal stenosis, cervical region; Z79.82 Long term (current) use of aspirin; E03.9 Hypothyroidism, unspecified; Z79.899 Other long term (current) drug therapy; Z87.891 Personal history of nicotine dependence

== ENCOUNTER 2024-06-28 11:53 | Inpatient (IN) ==
--- OUTSIDE RECORDS SUMMARY | 2024-06-28 11:59 | External Medical Summary | Summary of Care ---
Author Name Unknown Organization [facility] Address [address] [place] [address] Phone [phone] Care Team Providers Care General Freight Agent Name Role Phone Liliane Pena DO Primary Care Provider Reason for Visit * Reason Onset Date Comments Test Results 06/23/2024 Unexpected or In determinate Result Encounter Details Date Type Department Care Team (Late st Contact Info) Description 06/23/2024 Telephone Laboratory, [place] [address] [place] [address] Angela Chilel PA-C [address] [place] [id number] Test Results (Unexpected or Indeterminate ... Allergies Active Allergy Reactions Criticality Noted Date Comments Venlafaxine 08/22/2017 Excessive cough, throat tightness Indomethacin 08/23/2023 nightmares documented as of this encounter (statuses as of 06/23/2024) Medications Albuterol Sulfate (2.5 MG/3ML) 0.083% Inhalation Nebulization Solution (Proventil)Indicat ions:Pulmonary emphysema, unspecified emphysema type (HCC) Inhale 1 Vial via nebulizer every 4 hours as needed for Wheezing. 90 mL 2 1 Active Metoprolol Succinate ER 50 MG Oral Tablet Extended Release 24 Hour (toPROL XL)Indications:HTN , goal below 130/80,Tachycardia TAKE ONE TABLET BY MOUTH EVERY MORNING 100 Tablet 3 04/04/2024 10:03 AM EST 4 07/20/19 25 Active Albuterol Sulfate HFA 108 (90 Base) MCG/ACT Inhalation Aerosol Solution INHALE TWO PUFFS BY MOUTH EVERY 6 HOURS NEEDED FOR COUGH, SHORTNESS OF BREATH, WHEEZING, OR DYSPNEA 54 g 1 06/19/2023 1:26 PM EST 4 Active Pantoprazole Sodium 20 MG Oral Tablet Delayed Release (Protonix)Indicati ons:Hiatal hernia TAKE ONE TABLET BY MOUTH EVERY MORNING 30 MINUTES BEFORE THE FIRST MEAL OF THE DAY. DO NOT CRUSH, CUT OR CHEW 100 Tablet 3 05/08/2024 9:07 AM EST 4 08/22/19 25 Active Atorvastatin Calcium 40 MG Oral Tablet (Lipitor) TAKE ONE TABLET BY MOUTH IN THE MORNING. 100 Tablet 2 06/03/2024 2:20 PM EST 4 Active Trelegy Ellipta 100-62.5-25 MCG/ACT Aerosol Powder Breath Activated (Fluticasone-Umecl idinium-Vilanterol )Indications:COPD, group B, by GOLD 2017 classification ([facility]) INHALE ONE PUFF BY MOUTH EVERY MORNING 180 Each 2 05/08/2024 12:20 PM EST 4 02/07/20 25 Active Losartan Potassium 25 MG Oral Tablet (Cozaar) Take 1 Tablet by mouth in the morning. 100 Tablet 3 04/01/2024 2:59 PM EST 4 Active Aspirin 81 MG Oral Tablet Delayed Release Take 1 Tablet by mouth in the morning. Active Tylenol 325 MG Oral Capsule (Acetaminophen) Take 2 Tablets by mouth as needed (pain). Active predniSONE 20 MG Oral Tablet (Deltasone)Indicat ions:Lumbar radicular pain Take three tablets by mouth for three days, take two tablets by mouth for three days, take one tablet by mouth for six days. Please take with food. 21 Tablet 5 Active Levothyroxine Sodium 125 MCG Oral Tablet (Levoxyl) Take 1 Tablet by mouth in the morning (at least 30 min prior to breakfast or other meds). 100 Tablet 3 06/23/2024 9:06 AM EST 5 Active documented as of this encounter (statuses as of 06/23/2024) Active Problems Problem Noted Date Diagnosed Date Hyperlipidemia with target LDL less than 100 Gastroesophageal reflux disease without esophagi tis 03/31/2024 Stenosis of left subclavian artery 11/27/2021 Overview (11/27/2021): All blood pressures in right arm. Bruit 11/25/2021 Overview (11/25/2021): ?subclavian artery Centrilobular emphysema 08/18/2021 Hepatic steatosis 01/24/2021 Adenoma of left adrenal gland 01/24/2021 Overview (01/25/2021): 1.[address] SANDRA (obstructive sleep apnea) 01/03/2021 Uncomplicated alcohol dependence 08/04/2020 Tachycardia 07/12/2020 COPD, group B, by GOLD 2017 classification 07/07 Overview (07/07/2020): Noted on imaging at [facility] 07/2020. Pulmonary nodule 07/07/2020 Overview (07/07/2020): KEITH, on imaging from [facility] 07/2020. Consider pulmonary referral. Hiatal hernia 06/19/2018 Overview (06/19/2018): Small. Per EGD 06/2018 Generalized osteoarthritis 05/24/2017 Acquired hypothyroidism 01/29/2017 Mixed dyslipidemia 01/29/2017 HTN, goal below 130/80 01/29/2017 documented as of this encounter (statuses as of 06/23/2024) Resolved Problems Problem Noted Date Diagnosed Date Resolved Date Swelling of both hands 11/24/202108/22 Heart murmur 07/12/2020 08/09/2020 Moderate episode of recurren t major depressive disorder 05/24/2017 01/26/2020 Alcohol consumption of more than two drinks per day 05/24/2017 08/23/2023 Tobacco use disorder 01/29/2017 021 documented as of this encounter (statuses as of 06/23/2024) Immunizations Name Administration Dates Next Due COVID-19 mRNA, LNP-s, No Pre serve, 2-Dose Series (Pfizer) 08/31/2020,08/10/2020 Pneumococcal Conjugate Vacc, 13 Valent (Prevnar) 06/25/2017 Pneumococcal Conjugate Vacci ne, 20-valent ([id number]) 04/21/2024 Pneumococcal Polysaccharide PPV23 (Pneumovax) 01/22/2019 Seasonal Influenza Virus Vac cine, Unspecified Formulation 01/09/2023,01/04/2022,01/24/2021,01/25,01/22/2019,06/13/2018,05/24/2017 Seasonal Influenza, High Dos e, Trivalent, PF, IM (Fluzone HD) 03/31/2024 Seasonal Influenza, PF, 6 M & above, IM , (FluLaval or Fluzone) 01/24/2021,01/26/2020,01/22/2019,06/13,05/24/2017 Seasonal Influenza, QUAD, wi th Preserv, 6 mons & Above, 0.5 mL, IM 01/09/2023,01/04/2022 Zoster Vaccine Recombinant (Shingrix) 11/22/2023 ,08/23/2023 documented as of this encounter Social History Tobacco Use Types Packs/Day Years Used Date Smoking Tobacco: Former Cigarettes 1.5 50 0 05/06/1973 - 07/05/2020 Smokeless Tobacco: Never Comments:Smokes 1-2 cigarett es "when I'm having a bad day". Alcohol Use Standard Drinks/Week Comments Not Currently 0 (1 standard drink = 0.6 oz pur e alcohol) pt quit drinking PHQ-2 Answer Date Recorded PHQ Adult Total Score 4 05/28/2024 Hunger Vital Sign Answer Date Recorded Within the past 12 months, y ou worried that your food would run out before you got the money to buy more. Never true 05/28/19 25 Within the past 12 months, t he food you bought just didn't last and you didn't have money to get more. Never true 05/28/2024 Childcare Answer Date Recorded Do you feel overwhelmed with taking care of a child, family member or friend? No 05/28/2024 Does your family need help f inding childcare? (Household - for ages 0-17 years) Not on file 05/28/2024 Clothing Answer Date Recorded Have you been unable to get clothing when it was really needed? No 05/28/2024 Is your family able to get c lothes or diapers when needed? (Household - for ages 0-17 years) Not on file 05/28/2024 Personal Safety Answer Date Recorded Do you feel unsafe or have concerns for your saf ety? No 05/28/2024 Do you have concerns for you r family's safety? (Household - for ages 0-17 years) Not on file 05/28/2024 Utilities Answer Date Recorded Do you have trouble paying y our heating, water, or electric bill? No 05/28/2024 Is your family able to pay t he heat, water, or electric bill? (Household - for ages 0-17 years) Not on file 05/28/2024 Does your family have access to good internet? (Household - for ages 0-17 years) Not on file 05/28/2024 Employment Status Answer Date Recorded Are you unemployed or without regular income? No 05/28/2024 Does the household have a [facility] source [facility] income? (Household - for ages 0-17 years) Not on file 05/28/2024 Social Connections Answer Date Recorded How often do you feel lonely or isolated from th ose around you? Never 05/28/2024 Financial Resource Strain Answer Date R ecorded Do you have any trouble payi ng for your medications, or do you think you might in the future? No 05/28/2024 Does your family have troubl e paying for medicine? (Household - for ages 0-17 years) Not on file 05/28/2024 Transportation Needs Answer Date Record ed Do you have trouble getting a ride to medical visits or work? (Adult - for ages 18 years and over) Not on file 05/28/2024 Does your family have a hard time getting a ride to doctors visits? (Household - for ages 0-17 years) Not on file 05/28/2024 Has lack of transportation k ept you from medical appointments, meetings, work, or from getting things needed for daily living? Check all that apply. No 05/28/2024 Do you (or your family) have trouble finding or paying for a ride (transportation)? (Household - for ages 0-17 years) Not on file 05/28/2024 Housing Stability Answer Date Recorded Do you currently live in a s helter or have no steady place to sleep at night? No 05/28/2024 Do you think you are at risk of becoming homeless? (Adult - for ages 18 years and over) Not on file 05/28/2024 Does your family worry about paying for your home or becoming homeless? (Household - for ages 0-17 years) Not on file 0 05/28/2024 Are you homeless or worried that you might be in the future? No 05/28/2024 Are you (or your family) mary ann eless or worried that you might be in the future? (Household - for ages 0-17 years) Not on file Food Insecurity Answer Date Recorded Do you need food for this week? No 05/28/2024 Are you able to get enough f ood for your family? (Household - for ages 0-17 years) Not on file 05/28/2024 Does your family need food t his week? (Household - for ages 0-17 years) Not on file 05/28/2024 Do you always have enough fo od for your family? (Household - for ages 0-17 years) Not on file 05/28/2024 Food Insecurity Answer Date Recorded Within the past 12 months, y ou worried that your food would run out before you got the money to buy more. Never true 05/28/19 25 Within the past 12 months, t he food you bought just didn't last and you didn't have money to get more. Never true 05/28/2024 Do you need food for this week? No 05/28/2024 Comments No Sex and Gender Information Value Date Recorded Sex Assigned at Female 05/28/2024 10:23 AM EST Legal Sex Female 10:53 AM EDT Gender Identity Female 05/28/2024 10:23 AM EST Sexual Orientation Straight 05/28/2024 10 :23 AM EST Occupation Industry Job Start Date Job End Date SSI Disability for back pain Not on file Not on file Not on file documented as of this encounter Miscellaneous Notes * Telephone Encounter - Husam Horton OSA - 06/23/2024 9:09 AM EST Sushma- The radiologist discovered an unexpected or indeterminate finding on Elif Weinstein ([id number]) and asks that you review the following report. Study Type: MRI L SPINE WO CONTRAST Date of Study: 06/22/2024 IMPRESSION: 1. Status post L4-L5 and L5-S1 left hemilaminectomy. Suboptimal laminectomy site postoperative peridural fibrosis/granulation tissue evaluation on this noncontrast MR. Contrast-enhanced lumbar spine MR may be performed for further evaluation, provided there is no clinical contraindication to intravenous gadolinium-based contrast. 2. Moderate L2-L3, L3-L4, and L5-S1 spinal canal stenoses. L2-L3 and L5-S1 spinal canal stenoses are partly due to disc extrusions. No additional lumbar spinal canal stenosis. 3. Traversing right L3 nerve root posterior displacement in L2-L3 subarticular zone by right subarticular zone disc extrusion. Nerve root contact at L2-L3, L3- L4, L4-L5, and L5-S1. Correlation with dermatomal symptom level recommended. 4. Filum terminale fibrolipoma. However, conus medullaris terminates at a normal level (inferior [id number] body), no filum terminale thickening at L5-S1, and no discrete taut filum terminale. . Nonetheless, correlation with tethered cord syndrome symptoms is recommended. 5. Multilevel neural foraminal narrowing, at worst moderate. 6. Grade I retrolisthesis of L2 on L3, L3 on L4, L4 and L5, and L5 on S1. 7. S shaped thoracolumbar scoliosis. Convex left thoracolumbar scoliosis, measuring 19 degrees by Mon method between superior T11 and inferior L3 endplates. Convex right lumbar scoliosis, measuring 14 degrees by Mon method between superior L4 and inferior L5 endplates. 8. 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 9. L1 superior endplate compression deformity, stable dating back to 08/2017 lumbar spine x-ray. 10. T11-T12, T12-L1, L1-L2, L2-L3, L3-L4, L4-L5, and L5-S1 disc level and T11 superior endplate mixed fibrovascular and fatty degenerative endplate changes. Fibrovascular degenerative endplate changes may be symptomatic. COMMENT: The following findings are so common on lumbar spine MR in normal, pain-free volunteers that while we report their presence, they must be interpreted with caution and in the context of the clinical situation. Among people over the age of 60 who do not have back pain, lumbar spine MR will find that about: - 9 in 10 have disk degeneration - 9 in 10 have disk signal loss (desiccation) - 8 in 10 have disk height loss - 8 in 10 have a bulging disk - 4 in 10 have an annular fissure - 4 in 10 have a disk protrusion - 4 in 10 have facet degeneration - 3 in 10 have spondylolisthesis Note that even 3 in 10 means that the finding is quite common in people without back pain. Sources: Dee Dee et al. AJNR 2015;36:811-6, Yuki et al. Spine 2001;26:1158-66. Please respond to this encounter to acknowledge receipt of this message and take responsibility to ensure this report is reviewed. Thank you, SANDRA Rodriguez Client Service [facility] documented in this encounter Plan of Treatment Upcoming Encounters Date Type Department Care Team (Late st Contact Info) Description 07/13/2024 2:00 PM EDT Telemedicine [facility] [address] [place] [phone] Angela Chilel PA-C [address] [place] [id number] 11/16/2024 11:00 AM EDT Imaging Radiology [address] [place] [phone] 11/18/2024 2:30 PM EDT Office Visit Family Medicine [address] [place] [phone] Liliane Pena [address] [place] [id number] 05/31/2025 10:30 AM EST Nurse Only Ancillary Alex Billings[address] [place] [id number] Mar, Nurse [address] [place] [id number] Scheduled Procedures Name Priority Associated Diagnoses Date/Ti me ESOPHAGOGASTRODUODENOSCOPY ( EGD), FLEXIBLE, TRANSORAL, DIAGNOSTIC Recall Snider esophagus COLONOSCOPY FLEXIBLE PROXIMAL DIAGNOSTIC Recall History of colon polyps Health Maintenance Due Date Last Done Comments DTap/Tdap Vaccines (1 - Tdap) 02/12/1976 Fecal Occult Blood Test 2002 Sigmoidoscopy 2002 Cologuard 07/29/2023 07/28/2020 COVID-19 Vaccine ( season) 2024 12/27/2021, 08/31/2020, 08/10/2020 Mammogram 08/26/2024 08/27/2023, 08/05, 07/12/2022, Additional history exists Albumin/Creatinine Ratio 02/26/2025 02/26/2022 GFR 04/21/2025 04/21/2024, 08/04, 07/27/2022, Additional history exists Adult Wellness Visit 05/28/2025 05/28/2024 Depression Screening 05/28/2025 05/28/2024 O2 ASSESSMENT COMPLETED IN PAST YEAR FOR COPD 05/28/2025 05/28/2024 TSH 05/28/2025 05/28/2024, 04/05, 08/21/2023, Additional history exists Diabetes Screening 04/21/2027 04/21/2024, 0 08/21/2023, 07/27/2022, Additional history exists Lipid Panel 07/14/2028 07/15/2023, 09/03, 07/12/2020, Additional history exists Colonoscopy 09/08/2030 09/08/2020, 09/08/2020 Colorectal Cancer Screening 09/08/2030 DXA Scan 07/31/2032 07/31/2022, 07/31/2022 Pap Smear Discontinued 02/10/2018, 1012/2017, 06/13/2015 (Done elsewhere) Alpha-1 Antitrypsin Completed 08/09/2020 Zoster Vaccines Completed 11/22/2023, 08/23/2023 Influenza Vaccine (FLU shot) Completed 03/31/2024, 01/09/2023, 01/09/2023, Additional history exists Pneumococcal Vaccine: 50+ Years Completed 04/21/2024, 01/22/2019, 06/25/2017 HPV (Gardasil) Vaccine Aged Out No lo nger eligible based on patient's age to complete this topic Hepatitis B Vaccine Aged Out No longe r eligible based on patient's age to complete this topic MENINGOCOCCAL (MENACTRA/MENVEO) Aged Out No longer eligible based on patient's age to complete this topic Meningitis B Vaccine (Bexsero/Trumemba) Aged Out No longer eligible based on patient's age to complete this topic documented as of this encounter Medical Devices Not on filedocumented as of this encounter Care Teams General Freight Agent Relationship Specialty Start Date End Date Liliane Pena DO [address] [place] [address] [place] [id number] PCP - General Internal Medicine 05/24/17 documented as of this encounter
--- OUTSIDE RECORDS SUMMARY | 2024-06-28 11:59 | External Medical Summary | Summary of Care ---
Author Name Unknown Organization [facility] Address [address] [place] [address] Phone [phone] Care Team Providers Care Drafter (Cad) Electronic Name Role Phone Cipriano To Primary Care Provider Reason for Visit * Reason Onset Date Comments Advice 06/19/2024 Encounter Details Date Type Department Care Team (Late st Contact Info) Description 06/19/2024 Telephone Care Coordination and Integration [address] [place], [place] [phone] Martha Clinton, YEIMI [address] [place], [place] [phone] Advice Allergies Active Allergy Reactions Criticality Noted Date Comments Venlafaxine 08/22/2017 Excessive cough, throat tightness Indomethacin 08/23/2023 nightmares documented as of this encounter (statuses as of 06/19/2024) Medications Albuterol Sulfate (2.5 MG/3ML) 0.083% Inhalation Nebulization Solution (Proventil)Indica tions:Pulmonary emphysema, unspecified emphysema type (HCC) Inhale 1 Vial via nebulizer every 4 hours as needed for Wheezing. 90 mL 2 07/13/19 21 Active Metoprolol Succinate ER 50 MG Oral Tablet Extended Release 24 Hour (toPROL XL)Indications:HT N, goal below 130/80,Tachycardi a TAKE ONE TABLET BY MOUTH EVERY MORNING 100 Tablet 3 4 10:03 AM EST 06/11/19 24 025 Active Albuterol Sulfate HFA 108 (90 Base) MCG/ACT Inhalation Aerosol Solution INHALE TWO PUFFS BY MOUTH EVERY 6 HOURS NEEDED FOR COUGH, SHORTNESS OF BREATH, WHEEZING, OR DYSPNEA 54 g 1 4 1:26 PM EST 06/17/19 24 Active Pantoprazole Sodium 20 MG Oral Tablet Delayed Release (Protonix)Indicat ions:Hiatal hernia TAKE ONE TABLET BY MOUTH EVERY MORNING 30 MINUTES BEFORE THE FIRST MEAL OF THE DAY. DO NOT CRUSH, CUT OR CHEW 100 Tablet 3 5 9:07 AM EST 07/16/19 24 025 Active Atorvastatin Calcium 40 MG Oral Tablet (Lipitor) TAKE ONE TABLET BY MOUTH IN THE MORNING. 100 Tablet 2 5 2:20 PM EST 11/20/19 24 Active Trelegy Ellipta 100-62.5-25 MCG/ACT Aerosol Powder Breath Activated (Fluticasone-Umec lidinium-Vilanter ol)Indications:CO PD, group B, by GOLD 2017 classification (HCC) INHALE ONE PUFF BY MOUTH EVERY MORNING 180 Each 2 5 12:20 PM EST 02/07/20 24 025 Active Losartan Potassium 25 MG Oral Tablet (Cozaar) Take 1 Tablet by mouth in the morning. 100 Tablet 3 4 2:59 PM EST 03/31/20 24 Active Aspirin 81 MG Oral Tablet Delayed Release Take 1 Tablet by mouth in the morning. Active Tylenol 325 MG Oral Capsule (Acetaminophen) Take 2 Tablets by mouth as needed (pain). Active predniSONE 20 MG Oral Tablet (Deltasone)Indica tions:Lumbar radicular pain Take three tablets by mouth for three days, take two tablets by mouth for three days, take one tablet by mouth for six days. Please take with food. 21 Tablet 06/09/19 25 Active Levothyroxine Sodium 125 MCG Oral Tablet (Levoxyl) Take 1 Tablet by mouth in the morning. (at least 30 min prior to breakfast or other meds). 100 Tablet 3 06/19/19 25 Active Levothyroxine Sodium 100 MCG Oral Tablet (Levoxyl) Take 1 Tablet by mouth in the morning at least 30 min prior to breakfast or other meds 100 Tablet 1 5 6:34 PM EST 05/08/19 25 025 Discontinued documented as of this encounter (statuses as of 06/19/2024) Active Problems Problem Noted Date Diagnosed Date [...] 07/07 Overview (07/07/2020): Noted on imaging at [facility] 07/2020. Pulmonary nodule 07/07/2020 Overview (07/07/2020): KEITH, on imaging from [facility] 07/2020. Consider pulmonary referral. Hiatal hernia 06/19/2018 Overview (06/19/2018): Small. Per EGD 06/2018 Generalized osteoarthritis 05/24/2017 Acquired hypothyroidism 01/29/2017 Mixed dyslipidemia 01/29/2017 HTN, goal below 130/80 01/29/2017 documented as of this encounter (statuses as of 06/19/2024) Resolved Problems Problem Noted Date Diagnosed Date Resolved Date Swelling of both hands 11/24/202108/22 Heart murmur 07/12/2020 08/09/2020 Moderate episode of recurren t major depressive disorder 05/24/2017 01/26/2020 Alcohol consumption of more than two drinks per day 05/24/2017 08/23/2023 Tobacco use disorder 01/29/2017 021 documented as of this encounter (statuses as of 06/19/2024) Immunizations Name Administration Dates Next Due COVID-19 mRNA, LNP-s, No Pre serve, 2-Dose Series ([employer]) 08/31/2020,08/10/2020 Pneumococcal Conjugate Vacc, 13 Valent (Prevnar) 06/25/2017 Pneumococcal Conjugate Vacci ne, 20-valent ([id number]) 04/21/2024 Pneumococcal Polysaccharide PPV23 (Pneumovax) 01/22/2019 Seasonal [...] No 05/28/2024 Does the household have a [facility] source [facility] income? (Household - for ages [...] encounter Miscellaneous Notes * Telephone Encounter - Azucena Chen RN - 06/19/2024 3:51 PM EST Reason for Call: Advice Contact: Telephone Call Contact Type: Test Results Provider In-Basket: Yes Outcome: see note Face to face time spent with Patient (minutes): 0 Total Time including non face to face (minutes): 10 * Telephone Encounter - Azucena Chen RN - 06/19/2024 3:50 PM EST Patient notified, aware prescription sent to mailorder and labs in the computer for repeat in 6-8wks. * Addendum Note - Cipriano To DO - 06/19/2024 1:40 PM ESTAddended by: CIPRIANO TO on: 06/19/2024 01:40 PM Modules accepted: Orders * Telephone Encounter - Cipriano To DO - 06/19/2024 1:39 PM EST Increase levothyroxine to 125 mcg daily - script sent to mail order. Repeat labs after being on 125 mcg for 6-8 weeks. Notify pt. * Telephone Encounter - Martha Clinton RN - 06/19/2024 1:11 PM EST Received an incoming call from patient. She states that she received a letter in the mail regardinglab work for her Thyroid. Letter was sent on 06/05 She states she takes her medication every day and she does not take it with anything else. documented in this encounter Plan of Treatment Upcoming Encounters Date Type Department Care Team (Late st Contact Info) Description 06/22/2024 12:15 PM EST Imaging Radiology [address] [place] [address] 07/13/2024 2:00 PM EDT Telemedicine [facility] [address] [place] [phone] Angela Chilel PA-C [address] [place] [address] 11/16/2024 11:00 AM EDT Imaging Radiology [facility] 1st [facility] [address] [place] [phone] 11/18/2024 2:30 PM EDT Office Visit Family Medicine [address] [place] [phone] [address]ip[address] [place] [address] 05/31/2025 10:30 AM EST Nurse Only Ancillary [address] [place] [address] [place], Nurse [address] [place] [address] Scheduled Orders Name Type Priority Associated Diagnoses Orde r Schedule TSH Lab Routine Acquired hypothyroidism Expected: 07/31/2024 (Approximate), Expires: 06/19/2025 Scheduled Procedures Name Priority Associated Diagnoses Date/Ti me ESOPHAGOGASTRODUODENOSCOPY ( EGD), FLEXIBLE, TRANSORAL, DIAGNOSTIC Recall Snider esophagus COLONOSCOPY FLEXIBLE PROXIMAL DIAGNOSTIC Recall History of colon polyps Health Maintenance Due Date Last Done Comments DTap/Tdap Vaccines (1 - Tdap) 02/12/1976 Fecal Occult Blood Test 2002 Sigmoidoscopy 2002 Cologuard 07/29/2023 07/28/2020 COVID-19 Vaccine ( season) 2024 12/27/2021, 08/31/2020, 08/10/2020 Mammogram 08/26/2024 08/27/2023, 04/2 07/2023, 07/12/2022, Additional history exists Albumin/Creatinine Ratio 02/26/2025 [...] 07/31/2032 07/31/2022, 07/31/2022 Pap Smear Discontinued 02/10/2018, 12/2017, 06/13/2015 (Done elsewhere) Alpha-1 Antitrypsin Completed 08/09/2020 [...] Not on filedocumented as of this encounter Visit Diagnoses Diagnosis Acquired hypothyroidism- Primary Unspecified hypothyroidism documented in this encounter Care Teams Drafter (Cad) Electronic Relationship Specialty Start Date End Date Cipriano To DO [address] [place] [address] [place] [address] PCP - General Internal Medicine 05/24/17 documented as of this encounter
--- OUTSIDE RECORDS SUMMARY | 2024-06-28 11:59 | External Medical Summary | Summary of Care ---
Author Name Unknown Organization [facility] Address [address] [place] [address] Phone [phone] Care Team Providers Care Compressed Air Pile Driver Operator Name Role Phone Cipriano To Primary Care Provider Reason for Visit * Reason Onset Date Comments Advice 06/19/2024 Encounter Details Date Type Department Care Team (Late st Contact Info) Description 06/19/2024 Telephone Care Coordination and Integration [address] [place], [place] [phone] Martha Clinton, YEIMI [address] [place], [place] [phone] Advice Allergies Active Allergy Reactions Criticality Noted [...] 07/07 Overview (07/07/2020): Noted on imaging at [facility] 07/2020. Pulmonary nodule 07/07/2020 Overview (07/07/2020): KIETH, on imaging from [facility] 07/2020. Consider pulmonary referral. Hiatal hernia 06/19/2018 [...] mRNA, LNP-s, No Pre serve, 2-Dose Series ([employer]) 08/31/2020,08/10/2020 Pneumococcal Conjugate Vacc, 13 Valent (Prevnar) 06/25/2017 Pneumococcal Conjugate Vacci ne, 20-valent ([id number]) 04/21/2024 Pneumococcal Polysaccharide PPV23 (Pneumovax) 01/22/2019 Seasonal [...] No 05/28/2024 Does the household have a [facility]? (Household - [...] Description 06/22/2024 12:15 PM EST Imaging Radiology [address] [place] [address] 07/13/2024 2:00 PM EDT Telemedicine [facility] [address] [place] [phone] Angela Chilel PA-C [address] [place] [address] 11/16/2024 11:00 AM EDT Imaging Radiology [facility]st [facility] [address] [place] [phone] 11/18/2024 2:30 PM EDT Office Visit Family Medicine [address] [place] [phone] [address] [place] [address] 05/31/2025 10:30 AM EST Nurse Only Ancillary [address] [place] [address] [place], Nurse [address] [place] [address] Scheduled Orders Name Type Priority Associated Diagnoses [...] hypothyroidism documented in this encounter Care Teams Compressed Air Pile Driver Operator Relationship Specialty Start Date End Date Cipriano oT DO [address] [place] [address] [place] [address] PCP - General Internal Medicine 05/24/17 documented as of this encounter
--- OUTSIDE RECORDS SUMMARY | 2024-06-28 11:59 | External Medical Summary | Summary of Care ---
Author Name Unknown Organization [facility] Address [address] [place] [address] Phone [phone] Care Team Providers Care Basketball Referee Name Role Phone Cipriano To Primary Care Provider Reason for Visit * Reason Onset Date Comments Advice 06/19/2024 Encounter Details Date Type Department Care Team (Late st Contact Info) Description 06/19/2024 Telephone Care Coordination and Integration [address] [place], [place] [phone] Martha Clinton, YEIMI [address] [place], [place] [phone] Advice Allergies Active Allergy Reactions Criticality Noted [...] breakfast or other meds). 100 Tablet 3 5 9:06 AM EST 06/19/19 25 Active Levothyroxine Sodium 100 MCG [...] 01/24/2021 Overview (01/25/2021): 1.[address] ASNDRA (obstructive sleep apnea) 01/03/2021 Uncomplicated alcohol dependence 08/04/2020 Tachycardia 07/12/2020 COPD, group B, by GOLD 2017 classification 07/07 Overview (07/07/2020): Noted on imaging at [facility] 07/2020. Pulmonary nodule 07/07/2020 Overview (07/07/2020): KEITH, on imaging from [facility] 07/2020. Consider pulmonary referral. Hiatal hernia [...] mRNA, LNP-s, No Pre serve, 2-Dose Series ([employer]) 08/31/2020,08/10/2020 Pneumococcal Conjugate Vacc, 13 Valent (Prevnar) 06/25/2017 Pneumococcal Conjugate Vacci ne, 20-valent ([id number]) 04/21/2024 Pneumococcal Polysaccharide PPV23 (Pneumovax) 01/22/2019 Seasonal [...] No 05/28/2024 Does the household have a re lar source of income? (Household - for ages [...] 2:00 PM EDT Telemedicine Interventional [facility] Center [facility] [address] [place] [phone] Angela Chilel PA-C [address] [place] [address] 11/16/2024 11:00 AM EDT Imaging Radiology [facility] 1st [facility] [address] [place] [phone] 11/18/2024 2:30 PM EDT Office Visit Family Medicine [address] [place] [phone] Cipriano To[address] [place] [address] 05/31/2025 10:30 AM EST Nurse Only Ancillary [address] [place] [address] [place], Nurse Annual [address] [place] [address] Scheduled Orders Name Type Priority Associated Diagnoses [...] hypothyroidism documented in this encounter Care Teams Basketball Referee Relationship Specialty Start Date End Date Cipriano To DO [address] [place] [address] [place] [phone] PCP - General Internal Medicine 05/24/17 documented as of this encounter
--- OUTSIDE RECORDS SUMMARY | 2024-06-28 12:00 | External Medical Summary | Summary of Care ---
Author Name Unknown Organization [facility] Address [address] [facility] [place] [address] Phone [phone] Care Team Providers Care Development Technical Lead Name Role Phone Liliane Pena Primary Care Provider Encounter Details Date Type Department Care Team (Late st Contact Info) Description 05/27/2024 Population Health External Data Unspecified Department Allergies Active Allergy Reactions Criticality Noted Date Comments Venlafaxine 08/22/2017 Excessive cough, throat tightness Indomethacin 08/23/2023 nightmares documented as of this encounter (statuses as of 05/27/2024) Medications Albuterol Sulfate (2.5 MG/3ML) 0.083% Inhalation Nebulization Solution (Proventil)Indicat ions:Pulmonary emphysema, unspecified emphysema type (HCC) Inhale 1 Vial via nebulizer every 4 hours as needed for Wheezing. 90 mL 2 07/13/19 21 Active Diclofenac Sodium 1 % External Gel (Voltaren) APPLY TO NECK TWO TIMES A DAY NEEDED FOR PAIN 100 g 3 07/04/2023 3:34 PM EST 06/03/19 24 025 Active Metoprolol Succinate ER 50 MG Oral Tablet Extended Release 24 Hour (toPROL XL)Indications:HTN , goal below 130/80,Tachycardia TAKE ONE TABLET BY MOUTH EVERY MORNING 100 Tablet 3 04/04/2024 10:03 AM EST 06/11/19 24 025 Active Additional Information Patient not taking.Reported on 03/31/2024 Albuterol Sulfate HFA 108 (90 Base) MCG/ACT Inhalation Aerosol Solution INHALE TWO PUFFS BY MOUTH EVERY 6 HOURS NEEDED FOR COUGH, SHORTNESS OF BREATH, WHEEZING, OR DYSPNEA 54 g 1 06/19/2023 1:26 PM EST 06/17/19 24 Active Pantoprazole Sodium 20 MG Oral Tablet Delayed Release (Protonix)Indicati ons:Hiatal hernia TAKE ONE TABLET BY MOUTH EVERY MORNING 30 MINUTES BEFORE THE FIRST MEAL OF THE DAY. DO NOT CRUSH, CUT OR CHEW 100 Tablet 3 05/08/2024 9:07 AM EST 07/16/19 24 025 Active Clobetasol Propionate 0.05 % External Ointment (Temovate)Indicati ons:Rash and nonspecific skin eruption Apply twice daily to lower legs up to 2 weeks, then taper to weekends only Fri-Sat as needed 60 g 2 09/19/19 24 Active Additional Information Patient not taking.Reported on 03/31/2024 Atorvastatin Calcium 40 MG Oral Tablet (Lipitor) TAKE ONE TABLET BY MOUTH IN THE MORNING. 100 Tablet 2 02/29/2024 10:44 AM EDT 11/20/19 24 Active Trelegy Ellipta 100-62.5-25 MCG/ACT Aerosol Powder Breath Activated (Fluticasone-Umecl idinium-Vilanterol )Indications:COPD, group B, by GOLD 2017 classification ([facility]) INHALE ONE PUFF BY MOUTH EVERY MORNING 180 Each 2 05/08/2024 12:20 PM EST 02/07/20 24 025 Active Losartan Potassium 25 MG Oral Tablet (Cozaar) Take 1 Tablet by mouth in the morning. 100 Tablet 3 04/01/2024 2:59 PM EST 03/31/20 24 Active Levothyroxine Sodium 100 MCG Oral Tablet (Levoxyl) Take 1 Tablet by mouth in the morning at least 30 min prior to breakfast or other meds 100 Tablet 1 05/11/2024 6:34 PM EST 05/08/19 25 Active documented as of this encounter (statuses as of 05/27/2024) Active Problems Problem Noted Date Diagnosed Date [...] 07/07 Overview (07/07/2020): Noted on imaging at [facility] 07/2020. Pulmonary nodule 07/07/2020 Overview (07/07/2020): KEITH, on imaging from [facility] 07/2020. Consider pulmonary referral. Hiatal hernia 06/19/2018 Overview (06/19/2018): Small. Per EGD 06/2018 Generalized osteoarthritis 05/24/2017 Acquired hypothyroidism 01/29/2017 Mixed dyslipidemia 01/29/2017 HTN, goal below 130/80 01/29/2017 documented as of this encounter (statuses as of 05/27/2024) Resolved Problems Problem Noted Date Diagnosed Date Resolved Date Swelling of both hands 11/24/202108/22 Heart murmur 07/12/2020 08/09/2020 Moderate episode of recurren t major depressive disorder 05/24/2017 01/26/2020 Alcohol consumption of more than two drinks per day 05/24/2017 08/23/2023 Tobacco use disorder 01/29/2017 021 documented as of this encounter (statuses as of 05/27/2024) Immunizations Name Administration Dates Next Due COVID-19 mRNA, LNP-s, No Pre serve, 2-Dose Series ([employer]) 08/31/2020,08/10/2020 Pneumococcal Conjugate Vacc, 13 Valent (Prevnar) 06/25/2017 Pneumococcal Conjugate Vacci ne, 20-valent ([id number]) 04/21/2024 Pneumococcal Polysaccharide PPV23 (Pneumovax) 01/22/2019 Seasonal [...] bad day". Alcohol Use Standard Drinks/Week Comments Yes 10 (1 standard drink = 0.6 oz pu re alcohol) PHQ-2 Answer Date Recorded PHQ Adult Total Score 0 10/04/2020 Hunger Vital Sign Answer Date Recorded Within the past 12 months, y ou worried that your food would run out before you got the money to buy more. Never true 09/10/19 21 Within the past 12 months, t he food you bought just didn't last and you didn't have money to get more. Never true 09/09/2020 Comments No Sex and Gender Information Value Date Recorded Sex Assigned at Not on file Legal Sex Female 10:53 AM EDT Gender Identity Not on file Sexual Orientation Not on file Occupation Industry Job Start Date Job End Date SSI Disability for back pain Not on file Not on file Not on file documented as of this encounter Plan of Treatment Upcoming Encounters Date Type Department Care Team (Late st Contact Info) Description 05/28/2024 10:00 AM EST Nurse Only Ancillary [address] [place] [address] [place], Nurse Annual Wellness [address] [place] [address] [place] [address] 11/18/2024 2:30 PM EDT Office Visit Family Medicine [address] [place] [phone] [place] [address] Scheduled Procedures Name Priority Associated Diagnoses Date/Ti me ESOPHAGOGASTRODUODENOSCOPY ( EGD), FLEXIBLE, TRANSORAL, DIAGNOSTIC Recall Snider esophagus COLONOSCOPY FLEXIBLE PROXIMAL DIAGNOSTIC Recall History of colon polyps Health Maintenance Due Date Last Done Comments DTap/Tdap Vaccines (1 - Tdap) 02/12/1976 Fecal Occult Blood Test 2002 Sigmoidoscopy 2002 Depression Screening 10/04/2021 10/04/2020 Adult Wellness Visit 2023 Cologuard 07/29/2023 07/28/2020 COVID-19 Vaccine ( season) 2024 12/27/2021, 08/31/2020, 08/10/2020 Mammogram 08/26/2024 08/27/2023, 08/05, 07/12/2022, Additional history exists Albumin/Creatinine Ratio 02/26/2025 02/26/2022 O2 ASSESSMENT COMPLETED IN PAST YEAR FOR COPD 03/31/2025 03/31/2024 GFR 04/21/2025 04/21/2024, 08/04, 07/27/2022, Additional history exists TSH 04/21/2025 04/21/2024, 08/04, 07/15/2023, Additional history exists Diabetes Screening 04/21/2027 04/21/2024, [...] filedocumented as of this encounter Care Teams Development Technical Lead Relationship Specialty Start Date End Date Liliane Pena DO [address] [place] [address] [place] [phone] PCP - General Internal Medicine 05/24/17 documented as of this encounter
--- OUTSIDE RECORDS SUMMARY | 2024-06-28 12:00 | External Medical Summary ---
Author Name Unknown Address Unknown Organization [id number]:[facility] [place] [address] [facility] [address] [facility] [address] Laboratory Report Ordering Provider Test Date Status MAKAYLA COTAON 05/28/2024 10:59:50 Final Observation Date Value Abnormality Reference (Units ) Status TSH 05/28/2024 10:59:50 7.73 Above high normal 0. 27-4.20 (uIU/mL) Final Performing Location [facility] [place] [address] [facility] [address]
--- OUTSIDE RECORDS SUMMARY | 2024-06-28 12:00 | External Medical Summary | Summary of Care ---
Author Name Unknown Organization [facility] Address [address] [facility] [place] [address] Phone [phone] Care Team Providers Care Taxation Agent Name Role Phone Liliane Pena Primary Care Provider [phone] Reason for Visit * Reason Comments Adult Annual Wellness Visit, Initial Vis it Encounter Details Date Type Department Care Team (Late st Contact Info) Description 05/28/2024 10:00 AM EST Nurse Only Ancillary [address] [place] [id number] [facility] [address] [place] [phone] Adult Annual Wellness Visit, Initial Visit Allergies Active Allergy Reactions Criticality Noted Date Comments Venlafaxine 08/22/2017 Excessive cough, throat tightness Indomethacin 08/23/2023 nightmares documented as of this encounter (statuses as of 05/28/2024) Medications Albuterol Sulfate (2.5 MG/3ML) 0.083% Inhalation [...] )Indications:COPD, group B, by GOLD 2017 classification (HCC) [...] 05/11/2024 6:34 PM EST 05/08/19 25 Active Aspirin 81 MG Oral Tablet Delayed Release Take 1 Tablet by mouth in the morning. Active Tylenol 325 MG Oral Capsule (Acetaminophen) Take 2 Tablets by mouth as needed (pain). Active Clobetasol Propionate 0.05 % External Ointment (Temovate)Indicati ons:Rash and nonspecific skin eruption Apply twice daily to lower legs up to 2 weeks, then taper to weekends only Sat-Sat as needed 60 g 2 09/19/19 24 025 Discontin ued(Medic ation List Clean Up) documented as of this encounter (statuses as of 05/28/2024) Active Problems Problem Noted Date Diagnosed Date [...] 07/07 Overview (07/07/2020): Noted on imaging at [facility] 07/2020. Pulmonary nodule 07/07/2020 Overview (07/07/2020): KEITH, on imaging from [facility] 07/2020. Consider pulmonary referral. Hiatal hernia 06/19/2018 Overview (06/19/2018): Small. Per EGD 06/2018 Generalized osteoarthritis 05/24/2017 Acquired hypothyroidism 01/29/2017 Mixed dyslipidemia 01/29/2017 HTN, goal below 130/80 01/29/2017 documented as of this encounter (statuses as of 05/28/2024) Resolved Problems Problem Noted Date Diagnosed Date Resolved Date Swelling of both hands 11/24/202108/22 Heart murmur 07/12/2020 08/09/2020 Moderate episode of recurren t major depressive disorder 05/24/2017 01/26/2020 Alcohol consumption of more than two drinks per day 05/24/2017 08/23/2023 Tobacco use disorder 01/29/2017 021 documented as of this encounter (statuses as of 05/28/2024) Immunizations Name Administration Dates Next Due COVID-19 mRNA, LNP-s, No Pre serve, 2-Dose Series (Pfizer) 08/31/2020,08/10/2020 Pneumococcal Conjugate Vacc, 13 Valent (Prevnar) 06/25/2017 Pneumococcal Conjugate Vacci ne, 20-valent ([id number]) 04/21/2024 Pneumococcal Polysaccharide PPV23 (Pneumovax) 01/22/2019 Seasonal [...] 05/28/2024 Does the household have a re gular source of income? (Household - for ages [...] ages 0-17 years) Not on file 05/28/2024 Comments No Sex and Gender Information [...] on file documented as of this encounter Last Filed Vital Signs Vital Sign Reading Time Taken Comments Blood Pressure 110/60 05/28/2024 10:09 AM EST Pulse 75 05/28/2024 10:09 AM EST Temperature - - Respiratory Rate - - Oxygen Saturation 92% 05/28/2024 10:09 AM EST Inhaled Oxygen Concentration - - Weight 70.8 kg (156 lb) 05/28/2024 10:09 AM EST Height 161.3 cm (5' 3.5") 05/28/2024 10:09 AM ES T Body Mass Index 27.2 05/28/2024 10:09 AM EST documented in this encounter Patient Instructions * Patient Instructions* Azucena Chen RN - 05/28/2024 10:21 AM EST Patient Instructions - Fall Prevention (This education is for all patients over 65 regardless of symptoms) Remember to take your current medications as prescribed. In order to prevent falls, you are encouraged to: Exercise Utilize assistive/adaptive devices Avoid multifocal lenses when walking Avoid hazards in home Maintain a regular toileting schedule Any questions please contact our office. Preventing Falls in the Home (This education is for all patients over 65 regardless of symptoms) As you get older, falls are more likely. Thats because your reaction time slows. Your muscles and joints may also get stiffer, making them less flexible. Illness, medications, and vision changes can also affect your balance. A fall could leave you unable to live on your own. To make your home safer, follow these tips: Floors Put nonskid pads under area rugs Remove throw rugs Replace worn floor coverings Tack carpets firmly to each step on carpeted stairs. Put nonskid strips on the edges of uncarpeted stairs Keep floors and stairs free of clutter and cords Arrange furniture so there are clear pathways Clean up any spills right away Bathrooms Install grab bars in the tub or shower Apply nonskid strips or put a nonskid rubber mat in the tub or shower Sit on a bath chair to bathe Use bathmats with nonskid backing Lighting Keep a flashlight in each room Put a nightlight along the pathway between the bedroom and the bathroom [employer] Patient Education Copyright 2008 - 2010 [employer] except where otherwise noted Preventing Falls: Exercises to Improve Balance, Flexibility, Strength, and Staying Power (This education is for all patients over 65 regardless of symptoms) Certain types of exercises may help make you less likely to fall. Try the ones below. Or do other exercises that your healthcare provider suggests. Depending on your health, you may need to start slowly. Dont let that stop you. Even small amounts of exercise can help you. Be sure to talk to yourhealthcare provider before starting any exercise program. Improve Balance Many types of exercise can help improve balance. Mike chi and yoga are good examples. Heres another one to try. You can do it anytime and almost anywhere. Stand next to a counter or solid support. Push yourself up onto your tiptoes. Hold for 5 seconds. If you start to lose your balance, hold on to the counter. Rest and repeat 5 times. Work up to holding for 20 to 30 seconds, if you can. Increase Flexibility Being more flexible makes it easier for you to move around safely. Try exercises like the seated hamstring stretch. Sit in a chair and put one foot on a stool. Straighten your leg and reach with both hands down either side of your leg. Reach as far down your leg as you can. Hold for about 20 seconds. Go back to the starting position. Then repeat 5 times. Switch legs. Build Strength Resistance exercises help build strength. You can do them without equipment. Or you can use weights, elastic bands, or special machines. One such exercise is called the biceps curl. You can hold a 1 pound weight or even a can of soup. Do this exercise at least 3 times a week. Strive for everyday. Sit up straight in a chair. Keep your elbow close to your body and your wrist straight. Bend your arm, moving your hand up to your shoulder. Then slowly lower your arm. Repeat 5 times. Switch to the other arm. Build Your Staying Power Aerobic exercises make your heart and lungs stronger so you can keep moving longer. Walking and swimming are two of the best types of exercises you can do. Using a stationary bike is great, too. Find an aerobic exercise that you enjoy. Start slowly and build up. Even 5 minutes is helpful. Aimfor a goal of 30 minutes, at least 3 times a week. You dont have to do 30 minutes in one session. Break it up and walk a little throughout the day. More Helpful Tips Start easy. Slowly work up to doing more. Talk with your healthcare provider about the best exercises for you. Call senior centers or health clubs about exercise programs. If needed, have a family member watch you walk every so often to check your stability. Exercise with a friend. Choose an activity you both enjoy. Try exercises that you can do anytime, anywhere. Here are two examples. Have someone with you when you first try these: Practice walking by placing one foot right in front of the other. Stand up and sit down 10 times. Repeat this throughout the day. [employer] Patient Education Copyright 2008 [employer] except where otherwise noted. Preventing Falls: Moving Safely Using a Cane or Walker (This education is for all patients over 65 regardless of symptoms) Keep the cane away from your feet so you dont trip. A walking aid, such as a cane or walker, can help you stay more independent and avoid falls. Remember to keep your walking aid within easy reach when youre in a chair or in bed. And learn how to use it safely so you dont injure yourself. Using a Cane If you have a stronger side, hold the cane on that side. Get your balance. Move the cane and your weaker leg forward. Support your weight on both the cane and your weaker side. Step with your stronger leg. Start again from step 1. If youre using a folding walker, be sure you know how to lock it open. Check that its locked open before each use. Using a Walker Roll the walker (or lift it, if youre using one without wheels) forward about 12 inches. Step forward with your weaker leg first. Use the walker to help keep your balance. Bring your other foot forward to the center of the walker. Start again from step 1. Helpful Tips Check with your healthcare provider about the right walking aid to use. Ask about a walker with a seat attached. Check the tips of your cane or walker to make sure they have nonskid covers. Move slowly from room to room. Dont mckenzie. Sit down to get dressed. Use a arias pack or backpack to keep your hands free. Get help for jobs that mean climbing, even on a stepstool. [employer] Patient Education Copyright 2008 - 2010 [employer] except where otherwise noted. Urinary Incontinence Plan of Care Documentation: (This education is for all patients over 65 regardless of symptoms) Current medications reconciled. Patient encouraged to: Practice kegal exercises Provide education materials Use the restroom every 2 hours throughout the day Limit caffeine, alcohol, spicy foods and acidic foods Keep a bladder diary Limit fluid intake 3-4 hours before bed Lose weight Prevent constipation Take fluid pills at a time when you can get to the bathroom quickly Control sugar better if diabetic Limit fluid intake to 60 oz. per day Wear support stockings (TEDs)if you have edema Azucena Chen RN 05/28/2024 Kegel Exercises Kegel exercises dont require special clothing or equipment. Theyre easy to learn and simple to do. And if you do them right, no one can tell youre doing them, so they can be done almost anywhere. Your doctor, nurse, or physical therapist can answer any questions you have and help you get started. A Weak Pelvic Floor The pelvic floor muscles may weaken due to aging, and vaginal childbirth, injury, surgery, chronic cough, or lack of exercise. If the pelvic floor is weak, your bladder and other pelvic organs may sag out of place. The urethra may also open too easily and allow urine to leak out. Kegel exercises can help you strengthen your pelvic floor muscles so they can better support the pelvic organs and control urine flow. How Kegel Exercises Are Done Try each of the Kegel exercises described below. When youre doing them, try not to move your leg, buttock, or stomach muscles. While youre urinating, try to stop the flow of urine. Start and stop it as often as you can. Contract as if you were stopping your urine stream, but do it when youre not urinating. Tighten your rectum as if trying not to pass gas. Contract your anus, but dont move your buttocks. Helpful Hints Do your Kegels as often as you can. The more you do them, the faster youll feel the results. Pick an activity you do often as a reminder. For instance, do your Kegels every time you sit down. Tighten your pelvic floor before you sneeze, get up from a chair, cough, laugh, or lift. This protects your pelvic floor from injury and can help prevent urine leakage. Try to hold each Kegel for a slow count to five. You probably wont be able to hold them for thatlong at first, but keep practicing. It will get easier as your pelvic floor gets stronger. Eventually, special weights that you place in your vagina may be recommended to help make your Kegels even more effective. [employer] Patient Education Copyright 2008 - 2010 Ketan except where otherwise noted. Here are some helpful tips for your urinary incontinence: (This education is for all patients over 65 regardless of symptoms) Practice Kegel exercises Use the restroom every 2 hours throughout the day Limit caffeine, alcohol, spicy foods, and acidic foods Keep a bladder diary Limit fluid intake 3-4 hours before bed Lose weight Prevent constipation Take fluid pills at a time when can get to the bathroom quickly Control sugar better if diabetic Limit fluid intake to 60 oz. per day Any questions, please feel free to contact our office. Hi Ms. Weinstein, As your primary care physician, I know that regular visits with my patients who have several chronic conditions can go a long way in helping you stay healthy. Many times, the clinic team and I are in touch with you and/or other care team members between office visits to adjust medications, discuss any changes in your health, and review our care plan to make sure it is still meeting your needs. I am dedicated to helping you take a more active role in your overall care. It is important that there are resources available to you, so I created a personalized plan of care with a Health Calendar for you, which is included on the next page of this letter. Below is a list that summarizes your electronic health record: Health Maintenance Due: Health Maintenance Due Topic Date Due DTap/Tdap Vaccines (1 - Tdap) Never done COVID-19 Vaccine ( season) 2024 Current Medication List: (as of Visit date not found (in office), Visit date not found (telemedicine) ) Current Outpatient Medications Medication Sig Dispense Refill Aspirin 81 MG Oral Tablet Delayed Release Take 1 Tablet by mouth in the morning. Tylenol 325 MG Oral Capsule (Acetaminophen) Take 2 Tablets by mouth as needed (pain). Albuterol Sulfate (2.5 MG/3ML) 0.083% Inhalation Nebulization Solution (Proventil) Inhale 1 Vial via nebulizer every 4 hours as needed for Wheezing. 90 mL 2 Diclofenac Sodium 1 % External Gel (Voltaren) APPLY TO NECK TWO TIMES A DAY NEEDED FOR PAIN 100 g 3 Metoprolol Succinate ER 50 MG Oral Tablet Extended Release 24 Hour (toPROL XL) TAKE ONE TABLET BY MOUTH EVERY MORNING 100 Tablet 3 Albuterol Sulfate HFA 108 (90 Base) MCG/ACT Inhalation Aerosol Solution INHALE TWO PUFFS BY MOUTH EVERY 6 HOURS NEEDED FOR COUGH, SHORTNESS OF BREATH, WHEEZING, OR DYSPNEA 54 g 1 Pantoprazole Sodium 20 MG Oral Tablet Delayed Release (Protonix) TAKE ONE TABLET BY MOUTH EVERY MORNING 30 MINUTES BEFORE THE FIRST MEAL OF THE DAY. DO NOT CRUSH, CUT OR CHEW 100 Tablet 3 Atorvastatin Calcium 40 MG Oral Tablet (Lipitor) TAKE ONE TABLET BY MOUTH IN THE MORNING. 100 Tablet 2 Trelegy Ellipta 100-62.5-25 MCG/ACT Aerosol Powder Breath Activated (Phkkerjdvcn-Sphnpolknxbl-Cdcsvcwzmg) INHALE ONE PUFF BY MOUTH EVERY MORNING 180 Each 2 Losartan Potassium 25 MG Oral Tablet (Cozaar) Take 1 Tablet by mouth in the morning. 100 Tablet 3 Levothyroxine Sodium 100 MCG Oral Tablet (Levoxyl) Take 1 Tablet by mouth in the morning at least 30 min prior to breakfast or other meds 100 Tablet 1 No current facility-administered medications for this visit. Current List of Allergies: (as of Visit date not found (in office), Visit date not found (telemedicine) ) Review of patient's allergies indicates: Allergen Reactions Effexor [Venlafaxine] Excessive cough, throat tightness Indomethacin nightmares Most Recent Lab Results: Results for orders placed or performed in visit on 04/21/24 TSH Result Value Ref Range TSH 16.50 (H) 0.27 - 4.20 uIU/mL RHEUMATOID FACTOR Result Value Ref Range Rheumatoid Factor <10 <14 IU/mL CYCLIC CITRULLINATED PEPTIDE IGG ANTIBODY Result Value Ref Range Cyclic Citrullinated Peptide IgG Antibody Interpretation Negative Negative Cyclic Citrullinated Peptide IgG Antibody Value 0.6 <7 U/mL ERYTHROCYTE SEDIMENTATION RATE (ESR) Result Value Ref Range ESR 10 <30 mm/hour BASIC METABOLIC PANEL Result Value Ref Range BUN 21 (H) 6 - 20 mg/dL CREATININE 0.7 0.5 - 1.0 mg/dL EGFR >90 >=60 mL/min SODIUM 138 135 - 146 mmol/L POTASSIUM 5.3 (H) 3.5 - 5.1 mmol/L CHLORIDE 102 98 - 107 mmol/L CO2 25 22 - 32 mmol/L ANION GAP 11 7 - 15 mmol/L GLUCOSE 100 70 - 120 mg/dL CALCIUM 10.0 8.4 - 10.2 mg/dL MYCODE SST1 Result Value Ref Range MyCode Specimen Freezing of extracted DNA, whole blood and/or serum. MYCODE SST2 Result Value Ref Range MyCode Specimen Freezing of extracted DNA, whole blood and/or serum. Sincerely, Liliane Pena DO 05/28/2024 [facility] Calendar (as of Visit date not found (in office), Visit date not found (telemedicine) ) Care needs Care needs Last completed Due next Diphtheria, tetanus & pertussis vaccines (1 - Tdap) --- Never done COVID-19 Vaccine ( season) 2021 01/05/2024 Mammogram 08/27/2023 08/26/2024 Urine albumin/creatinine test 02/26/2022 02/26/2025 Yearly COPD oxygen test 03/31/2024 03/31/2025 Kidney Function Test 04/21/2024 04/21/2025 Yearly thyroid level check 04/21/2024 04/21/2025 Adult Wellness Visit 05/28/2024 05/28/2025 Diabetes Screening 04/21/2024 04/21/2027 Lipid (cholesterol) disorder screening 07/15/2023 07/14/2028 Colorectal cancer screening (colonoscopy 10 years, sigmoidoscopy 5 years, Cologuard 3 years, stool sample 1 year) 09/08/2020 09/08/2030 Bone Density 07/31/2022 07/31/2032 As you look over the recommended services, be sure to check with your insurance company to determine what's covered. Tern is a great tool that helps you review your medical record online, including test results, doctor notes and your health summary. You can also schedule appointments with me and other members of your care team, request prescription refills and ask for advice related to your medical conditions at [email or web address]. With the new year your insurance will offer [employer] incentive gift cards for the following: Flu Education Fall Risk Education Urinary Incontinence Education Physical Activity Education [facility] [place] patients can access incentive list online through [employer] or by calling documented in this encounter Progress Notes * Azucena Chen RN - 05/28/2024 10:24 AM EST AD8 Dementia Screening Interview Person answering questions: patient Remember, "Yes, a change" indicates that there has been a change in the last several years caused by cognitive (thinking and memory) problems 1. Problems with judgement (eg: problems making decisions, bad financial decisions, problems with thinking). No (0) 2. Less interest in hobbies/activities. No (0) 3. Repeats the same things over and over (questions, stories, or statements). No (0) 4. Trouble learning how to use a tool, appliance, or gadget (eg: VCR, computer, microwave, remote control). No (0) 5. Forgets correct month or year. No (0) 6. Trouble handling complicated financial affairs (eg: balancing checkbook, income taxes, paying bills). No (0) 7. Trouble remembering appointments. No (0) 8. Daily problems with thinking and/or memory. No (0) TOTAL AD8: 0 - AD8 Dementia Screening Score The final score is a sum of the number items marked "Yes, A Change". 0 - 1: Normal cognition; 2 or greater: Cognitive impairments is likely to be present - further testing required Adult Annual Wellness Visit: Elif Weinstein is a 69 year old female who presents for an Adult Annual Wellness Visit. Depression Screening: Did the patient complete the screening questionnaire for Depression? Yes Is the patient's total score for Depression 15 or greater? No, no further intervention needed, unless requested by patient. Did the patient answer positively to the suicide question? No, no further intervention needed, unless requested by patient. In general, compared to other people your age, what would you say that your health is? Fair Ht Readings from Last 1 Encounters: 05/28/24 5' 3.5" (1.613 m) Wt Readings from Last 1 Encounters: 05/28/24 156 lb (70.8 kg) Body Mass Index: BMI Less than 30 Body mass index is 27.2 kg/m. BP Readings from Last 1 Encounters: 05/28/24 110/60 Medical/Surgical/Family History Reviewed: Yes Past Medical History: Diagnosis Date Acquired hypothyroidism 01/29/2017 Adenoma of left adrenal gland 01/24/[address] COPD (chronic obstructive pulmonary disease) (HCC) Generalized osteoarthritis 05/24/2017 Hepatic steatosis 01/24/2021 Hiatal hernia HTN, goal below 140/90 01/29/2017 Lung nodule Mixed dyslipidemia 01/29/2017 Spontaneous pneumothorax Tobacco use disorder 01/29/2017 Past Surgical History: Procedure Laterality Date ANESTH, LUMBAR SPINE/CORD SURGERY pinched nerve COLONOSCOPY, DIAGNOSTIC (RECTUM) 09/08/2020 sigmoid diver diverticulosis, 1 polyp, internal hemorrhoids / hyperplastic polyp / 5 year recall / COLONOSCOPY FLEXIBLE PROXIMAL DIAGNOSTIC performed by Carlotta Bear MD at [facility] CT CHEST WO CONTRAST N/A 01/24/2021 upper lobe reticular process, stable 5mm nodule, hepatic steatosis, 1.4 cm left adrenal adenoma EGD, FLEXIBLE, DIAGNOSTIC 06/19/2018 reflux, hiatal hernia, repeat 1-2 yrs/ESOPHAGOGASTRODUODENOSCOPY (EGD), FLEXIBLE, TRANSORAL, DIAGNOSTIC performed by Carlotta Bear MD at [facility] EGD, FLEXIBLE, DIAGNOSTIC 11/24/2019 variable GE junction/biopsies show Barretts, inactive inflammation of stomach/repeat 2-3 years/ESOPHAGOGASTRODUODENOSCOPY (EGD), FLEXIBLE, TRANSORAL, DIAGNOSTIC performed by Carlotta Bear MD at [facility] EGD, FLEXIBLE, DIAGNOSTIC 06/26/2022 normal bx, repeat 2 yrs / ESOPHAGOGASTRODUODENOSCOPY (EGD), FLEXIBLE, TRANSORAL, DIAGNOSTIC performed by Carlotta Bear MD at [facility] INJECT DX/THER SUBSTANCE INTERLAMINAR CERVICAL/THORACIC W IMAGE GUIDE 04/08/2017 INJECTION SPINE LUMBAR CERVICAL OR THORACIC performed by Sean Scottsins, DO at [facility] INJECT DX/THER SUBSTANCE INTERLAMINAR CERVICAL/THORACIC W IMAGE GUIDE 08/25/2020 INJECTION SPINE LUMBAR CERVICAL OR THORACIC performed by Sean Scottsins, DO at [facility] MAMMOGRAM SCREENING BILATERAL Bilateral 03/18/2020 heterogeneously dense, category 2 repeat 1 year. THORACOTOMY 1980 collapsed lung Family History Problem Relation Name Age of Onset Cancer Mother Pancreatic, age 78 Heart attack Father Fatal [place] age 42 Heart Disorder Sister Tina Helm, age 6 months Prostate cancer Brother Isaías Has patient ever had cancer? No Social History Tobacco Use Smoking status: Former Current packs/day: 0.00 Average packs/day: 1.5 packs/day for 50.0 years (74.9 ttl pk-yrs) Types: Cigarettes Start date: 05/06/1973 Quit date: 07/05/2020 Years since quittin.8 Smokeless tobacco: Never Tobacco comments: Smokes 1-2 cigarettes "when I'm having a bad day". Substance Use Topics Alcohol use: Not Currently Comment: pt quit drinking Vaping/E-Cigarette Use Vaping/E-Cigarette Use Never User Vaping/E-Cigarette Substances Vaping/E-Cigarette Devices Tobacco/Alcohol screening completed today? Yes Hospital Care: Admissions (within the last year): Not Applicable ER within 30 days: No Does the patient have an Advance Directives/Living Will? Yes Last Physical Exam: Last physical exam: 03/29 Does patient see primary provider regularly? Yes Does patient see other providers? Yes, Specialist Patient Care Team updated? Yes Review of patient's allergies indicates: Allergen Reactions Effexor [Venlafaxine] Excessive cough, throat tightness Indomethacin nightmares Immunization History Administered Date(s) Administered COVID-19 mRNA, LNP-s, No Preserve, 2-Dose Series ([employer]) 08/10/2020, 08/31/2020 COVID-19, LNP-s, No Preserve, Hipolito-sucrose, Ages 12+ ([employer]) 12/27/2021 Pneumococcal Conjugate Vacc, 13 Valent (Prevnar) 06/25/2017 Pneumococcal Conjugate Vaccine, 20-valent ([id number]) 04/21/2024 Pneumococcal Polysaccharide PPV23 (Pneumovax) 01/22/2019 Seasonal Influenza Virus Vaccine, Unspecified Formulation 05/24/2017, 06/13/2018, 01/22/2019, 01/26/2020, 01/24/2021, 01/04/2022, 01/09/2023 Seasonal Influenza, High Dose, Trivalent, PF, IM (Fluzone HD) 03/31/2024 Seasonal Influenza, PF, 6 M & above, IM , (FluLaval or Fluzone) 05/24/2017, 06/13/2018, 01/22/2019, 01/26/2020, 01/24/2021 Seasonal Influenza, QUAD, with Preserv, 6 mons & Above, 0.5 mL, IM 01/04/2022, 01/09/2023 Zoster Vaccine Recombinant (Shingrix) 08/23/2023, 11/22/2023 Current Outpatient Medications Medication Sig Dispense Refill Diclofenac Sodium 1 % External Gel (Voltaren) APPLY TO NECK TWO TIMES A DAY NEEDED FOR PAIN 100 g 3 Metoprolol Succinate ER 50 MG Oral Tablet Extended Release 24 Hour (toPROL XL) TAKE ONE TABLET BY MOUTH EVERY MORNING 100 Tablet 3 Albuterol Sulfate HFA 108 (90 Base) MCG/ACT Inhalation Aerosol Solution INHALE TWO PUFFS BY MOUTH EVERY 6 HOURS NEEDED FOR COUGH, SHORTNESS OF BREATH, WHEEZING, OR DYSPNEA 54 g 1 Pantoprazole Sodium 20 MG Oral Tablet Delayed Release (Protonix) TAKE ONE TABLET BY MOUTH EVERY MORNING 30 MINUTES BEFORE THE FIRST MEAL OF THE DAY. DO NOT CRUSH, CUT OR CHEW 100 Tablet 3 Atorvastatin Calcium 40 MG Oral Tablet (Lipitor) TAKE ONE TABLET BY MOUTH IN THE MORNING. 100 Tablet 2 Trelegy Ellipta 100-62.5-25 MCG/ACT Aerosol Powder Breath Activated (Axgwmkymdap-Zlqcjkwdrwml-Jqocnxmovq) INHALE ONE PUFF BY MOUTH EVERY MORNING 180 Each 2 Losartan Potassium 25 MG Oral Tablet (Cozaar) Take 1 Tablet by mouth in the morning. 100 Tablet 3 Levothyroxine Sodium 100 MCG Oral Tablet (Levoxyl) Take 1 Tablet by mouth in the morning at least 30 min prior to breakfast or other meds 100 Tablet 1 Aspirin 81 MG Oral Tablet Delayed Release Take 1 Tablet by mouth in the morning. Tylenol 325 MG Oral Capsule (Acetaminophen) Take 2 Tablets by mouth as needed (pain). Albuterol Sulfate (2.5 MG/3ML) 0.083% Inhalation Nebulization Solution (Proventil) Inhale 1 Vial via nebulizer every 4 hours as needed for Wheezing. 90 mL 2 No current facility-administered medications for this visit. Patient Active Problem List Diagnosis Acquired hypothyroidism Mixed dyslipidemia HTN, goal below 130/80 Generalized osteoarthritis Hiatal hernia COPD, group B, by GOLD 2017 classification (HCC) Pulmonary nodule Tachycardia Uncomplicated alcohol dependence (HCC) SANRDA (obstructive sleep apnea) Hepatic steatosis Adenoma of left adrenal gland Centrilobular emphysema (HCC) Bruit Stenosis of left subclavian artery (HCC) Hyperlipidemia with target LDL less than 100 Gastroesophageal reflux disease without esophagitis Medication Compliance: Patient is able to obtain all of her medications? Yes Patient takes medications as prescribed? Yes Patient manages own medications: Yes Patient uses a pill box? No Dental Exam: encouraged Eye Screening: Yes: Every year Are you having trouble with hearing? No Do you use an assistive device to help your hearing? No Exercise Screening: does not exercise regularly Nutrition Assessment: Eats three meals a day Pain Screening: Are you having any pain? Yes. Pain Scale: 7 out of 10; , all over, patient uses voltarin gel and tylenol Sleep Screening Tool 'STOP': Do you snore? Yes Do you feel fatigued during the day? Yes Do you wake up feeling like you haven't slept? No Have you been told you stop breathing at night? No Do you gasp for air or choke while sleeping? No Have you been told you have Sleep Apnea? Yes Do you have high blood pressure or are on medication(s) to control high blood pressure? Yes SCORE: If you check YES to two or more questions, make a referral for Obstructive Sleep Apnea Patient had a sleep study last year and wn Patient and Caregiver Support System: Patient lives with a spouse Means of Transportation: Drives. Concerns identified are: night Patient lives in One Story , 5 steps on the deck with railings Community Resources: Not Applicable Functional Status and ADL Skills: Has patient ever had an amputation? No Functional Assessment: 100- Normal, no complaints, no evidence of disease Ambulation: Patient ambulates with assistive device. Cane if needed Dressing: Gets clothes and dresses without any assistance: Independent Able to move freely in chair or bed including turning over: Independent Repositioning (bed or chair): Not applicable Transfers: Independent Toileting: Goes to bathroom, uses toilet, arranges clothes and returns without any assistance: Independent Toileting: continent of bladder and continent of bowel Feeding: Self Bathing: Self; tub and shower and towel bar, encouraged grab bars Requires none assistance with ADLs. Instrumental ADL's: Shopping: Minimal Assistance Housekeeping: Minimal Assistance Handling Finances: Minimal Assistance DME Vendor Name: Fall Risk Assessment: Can the patient demonstrate that she can stand from a sitting position? Yes Has the patient had a fall within the last 6 months? No Does the patient have a problem with her gait or balance? No Does the patient take 4 or more prescription medicines? Yes Does the patient use sedatives or narcotics? No Fall Risk Factors Present: Uses more than 4 medications Balance or gait disturbances Visually impaired Mrr-Kh-hhd-Go Test: Time began at 1000. Patient stood from sitting position and walked approximately 10 feet, returned and sat down. Total time for llj-fo-wwd-go test was 10 seconds. Vxa-Ra-zju-Go Test completed? Yes Gender Specific Preventative Plan: Health Maintenance Topic Date Due DTap/Tdap Vaccines (1 - Tdap) Never done COVID-19 Vaccine (4 - 2023- season) 2024 Mammogram 08/26/2024 Albumin/Creatinine Ratio 02/26/2025 GFR 04/21/2025 TSH 04/21/2025 Depression Screening 05/28/2025 O2 ASSESSMENT COMPLETED IN PAST YEAR FOR COPD 05/28/2025 Adult Wellness Visit 05/28/2025 Diabetes Screening 04/21/2027 Lipid Panel 07/14/2028 Colorectal Cancer Screening 09/08/2030 DXA Scan 07/31/2032 Alpha-1 Antitrypsin Completed Influenza Vaccine (FLU shot) Completed Zoster Vaccines Completed Pneumococcal Vaccine: 50+ Years Completed Hepatitis B Vaccine Aged Out MENINGOCOCCAL (MENACTRA/MENVEO) Aged Out HPV (Gardasil) Vaccine Aged Out Pap Smear Discontinued Follow Up/ Referrals/Handouts: Depression screening - completed Functional assessment - doing well, Falls Risk screening - discussed Exercise screening - encouraged to stay active, patient does have a lot of pain with arthritis Nutrition assessment -. Education Provided and Handouts Provided Pain screening - discussed, patient does want me to message Dr. Pena re rheumatology or Dr. Rodriguez appt Incontinence screening - no concerns today Patient has been verbally educated on the need or importance of Cholesterol, GFR, Glucose, COVID, Flu Vaccine, Shingles Vaccine, and TSH Pt has completed the covid vaccines: No Flu and shingrix completed Routine general medical examination at a health care facility (Primary) Risk and functional assessment Acquired hypothyroidism - Med reconciliation completed and compliance discussed. - pt to continue present medications. Patient is getting repeat labs done today since dosage change TSH Results: Lab Results Component Value Date/Time TSH - [facility] 16.50 (H) 04/21/2024 08:42 AM TSH - [facility] 6.18 (H) 08/21/2023 11:36 AM TSH - [facility] 10.20 (H) 07/15/2023 10:00 AM TSH - [facility] 1.80 01/26/2020 10:12 AM TSH - [facility] 2.46 12/02/2018 08:17 AM TSH - [facility] 1.29 08/22/2017 12:29 PM COPD, group B, by GOLD 2017 classification (HCC) - Med reconciliation completed and compliance discussed. - pt to continue present medications. Gastroesophageal reflux disease without esophagitis - Med reconciliation completed and compliance discussed. - pt to continue present medications. Generalized osteoarthritis - Med reconciliation completed and compliance discussed. - pt to continue present medications. HTN, goal below 130/80 - Med reconciliation completed and compliance discussed. - pt to continue present medications. BP Readings from Last 3 Encounters: 05/28/24 110/60 04/21/24 118/68 03/31/24 158/80 Hyperlipidemia with target LDL less than 100 - Med reconciliation completed and compliance discussed. - pt to continue present medications. Lab Results Component Value Date/Time LDL CHOLESTEROL (CALCULATED) - [facility] 91 07/15/2023 10:00 AM LDL CHOLESTEROL (CALCULATED) - [facility] 92 01/26/2020 10:12 AM LDL CHOLESTEROL (DIRECT MEASURE) - [facility] NOT APPLICABLE 01/26/2020 10:12 AM SANDRA (obstructive sleep apnea) Patient states she had a sleep study and it was "normal" Uncomplicated alcohol dependence (HCC) Patient has stopped drinking any alcohol as of 05/06/24 Follow Up: Return in 1 year (on 05/28/2025) for 12 month Subsequent Adult Wellness Visit. | For: 12 month Subsequent Adult Wellness Visit | Check-out note: 12 month Subsequent Adult Wellness Visit Would patient like to schedule next AWV visit? Yes Azucena Chen RN documented in this encounter Miscellaneous Notes * Pt Handout (on AVS) - Azucena Chen RN - 05/28/2024 10:44 AM EST thyroid_stimulating_hormone Thyroid-Stimulating Hormone Does this test have other names? TSH, thyrotropin test What is this test? This is a blood test that measures your level of thyroid-stimulating hormone (TSH). Healthcare providers use this test to diagnose problems affecting the thyroid. Your thyroid is a butterfly-shaped gland near the base of your throat above your collarbones. The thyroid makes 2 hormones, T3 and T4. These hormones affect your energy levels, mood, weight, and other important parts of your health. The pituitary gland in your brain makes a chemical called TSH. TSH triggers your thyroid to make T3and T4. When your pituitary gland makes too much or too little TSH, this can cause your thyroid to be overactive (hyperthyroidism) or underactive (hypothyroidism). Why do I need this test? You may need this test if you have symptoms of thyroid problems. Symptoms of hyperthyroidism include: Anxiety and mood swings Irritability Weakness in the arms and legs Insomnia Hand tremors Sweating Low tolerance for heat Irregular heartbeat Fatigue Unexplained weight loss More frequent bowel movements than usual Eye irritation or bulging eyes, which are symptoms of Graves disease, a common cause of hyperthyroidism Menstrual irregularity Enlarged breasts and erectile dysfunction in men Symptoms of hypothyroidism include: Fatigue Low tolerance for cold Weight gain Hair loss Swelling around the eyes Slower heart rate Shortness of breath Constipation Menstrual irregularity Loss of consciousness, although this is rare Healthcare providers may also check TSH levels when diagnosing depression and dementia. What other tests might I have along with this test? You may have tests to check your levels of: T4, total and free T3, total and free Thyroglobulin, which helps make and store thyroid hormones TSH receptor-stimulator antibodies, which is used to diagnose Graves disease Thyroid peroxidase antibodies and antithyroglobulin antibodies, to diagnose Vivian thyroiditis What do my test results mean? Test results may vary depending on your age, gender, health history, and other things. Your test results may be different depending on the lab used. They may not mean you have a problem. Ask your healthcare provider what your test results mean for you. Low TSH levels may mean you have hyperthyroidism. High TSH levels can mean you have hypothyroidism.The results of other thyroid tests can help to find the cause. How is this test done? The test is done with a blood sample. A needle is used to draw blood from a vein in your arm or hand. Does this test pose any risks? Having a blood test with a needle carries some risks. These include bleeding, infection, bruising, and feeling lightheaded. When the needle pricks your arm or hand, you may feel a slight sting or pain. Afterward, the site may be sore. What might affect my test results? Some medicines keep the pituitary gland from releasing TSH. These include: Phenothiazines Phenytoin Dopamine Glucocorticoids Other medicines and supplements that can affect thyroid tests include: Beta blockers Dexamethasone Enoxaparin Furosemide Heparin Nonsteroidal anti-inflammatory drugs Salicylates Carlin Estrogens Biotin How do I get ready for this test? Certain medicines or herbs can affect thyroid test results. Be sure your healthcare provider knows about all the medicines, herbs, vitamins, and supplements you are taking. This includes medicines that don't need a prescription and any illegal drugs you may use. Last Reviewed Date: 2022 00:00:00 [id number] [employer]. All rights reserved. This information is not intended as a substitute for professional medical care. Always follow your healthcare professional's instructions. * Pt Handout (on AVS) - Azucena Chen RN - 05/28/2024 10:44 AM EST Images from the original note were not included. [id number] Common Thyroid Problems The thyroid is a gland in the neck. It's controlled by the pituitary gland in the brain. The thyroid makes 2 hormones that control how the body uses and stores energy. If there's a problem with the thyroid, the level of thyroid hormones may change. This can lead to symptoms. Thyroid problems can betreated. Hypothyroidism This is when the thyroid gland doesn?t make enough hormone. It can be caused by: Vivian thyroiditis. This is an autoimmune disease. It's the main cause. It occurs when the body?s immune system attacks the thyroid gland by mistake. This damages the thyroid. So it doesn't make enough hormones. Too much or too little iodine in the body. The thyroid needs iodine to make hormone. Problems with the pituitary gland. This can lead to not enough production of thyroid hormone. Some medicines. Removing the thyroid gland during surgery. . Being can cause changes in the levels of hormones the thyroid gland makes. Common symptoms include: Low energy and tiredness Depression Feeling cold Muscle pain Slowed thinking Constipation Heavier menstrual periods with longer bleeding Weight gain Dry and brittle skin, hair, nails Excessive sleepiness Hyperthyroidism This is when the thyroid gland makes too much hormone. It's caused by: Graves disease. This is an autoimmune disorder. It occurs when the body?s immune system tells the thyroid to make too much hormone by mistake. Small bump (nodule) in the thyroid gland. This can cause hyperthyroidism if the cells in the nodule make too much thyroid hormone. This can stop hormone production in the rest of the thyroid gland. Common symptoms include: Shaking, nervousness, grouchiness Feeling hot A fast or irregular heartbeat Muscle weakness Extreme tiredness (fatigue) Shaking (tremors) in the hands More frequent bowel movements [place], culinary artist, or irregular menstrual periods Weight loss Hair loss Bulging eyes Nodules A thyroid nodule is an abnormal growth of thyroid cells that form a lump in the thyroid gland. In most cases, the cause isn?t known. But they may be more common in people: Who?ve had Vivian thyroiditis With an iodine deficiency Who've had treatment with radiation to the head or neck Who smoke With obesity With metabolic syndrome Sometimes nodules can be felt on the outside of the neck. Most of the time, they don't cause symptoms. And they don?t affect the amount of thyroid hormone. In most cases, they're not cancer. But sometimes a nodule may be cancer. Risk factors for cancer include: Age Gender Family history of thyroid cancer Past radiation exposure What's a goiter? A goiter is an abnormal enlargement of the thyroid gland. When the gland enlarges, you may see or feel a swelling on your neck. A goiter can develop in someone with a normal thyroid, overactive thyroid, or underactive thyroid. The treatment will depend on the cause of the goiter. Last Reviewed Date: 2023 00:00:00 [id number] [employer]. All rights reserved. This information is not intended as a substitute for professional medical care. Always follow your healthcare professional's instructions. * Pt Handout (on AVS) - Azucena Chen RN - 05/28/2024 10:44 AM EST Images from the original note were not included. [id number] Hypothyroidism You have been diagnosed with hypothyroidism. This means your thyroid gland doesn't make enough thyroid hormone. This hormone is vital to body growth and metabolism. If you don?t make enough, many body processes slow down. This can cause symptoms. Hypothyroidism can range from mild to severe. The most severe form is called myxedema coma. There are many causes of hypothyroidism. A common cause is Vivian?s thyroiditis. This is a disease that causes the immune system to attack the thyroid gland. Other causes include: Radiation to the thyroid gland Surgery to remove the thyroid gland Not enough hormones from the pituitary gland Medicines such as lithium or amiodarone Symptoms of hypothyroidism can include: Fatigue Trouble concentrating, thinking clearly, or remembering Dry skin Hair loss Weight gain Low tolerance to cold Constipation Depression Personality changes Tingling or prickling of the hands or feet Heavy, absent, or irregular periods Older adults may sometimes have other symptoms. These can include: Muscle aches and weakness Confusion Problems controlling urine or stool (incontinence) Trouble moving around Falling Treatment for hypothyroidism is done by taking thyroid hormone pills daily. These pills replace thehormone your thyroid doesn?t make. You'll likely need to take a daily pill for the rest of your life. Tips for taking this medicine are below. Home care Tips for taking your medicine Take your thyroid hormone pills exactly as prescribed. This is most often 1 pill a day on an empty stomach. Use a pillbox labeled with the days of the week. This will help you remember to take your pill each day. Don?t take iron, calcium, or antacids within 4 hours of taking your thyroid hormone pills. Don?t take other medicines with your thyroid hormone pill without checking with your provider first. Tell your provider if you have any side effects from your medicines. Don't change the dose or stop taking your thyroid pills without discussing with your healthcare provider. General care Always talk with your provider before trying other treatments for your thyroid. Tell all of your healthcare providers you have hypothyroidism. Tell your provider if you get . Your dose of thyroid hormone may need to be changed. Follow-up care See your provider for checkups as advised. You'll need regular tests to check the level of thyroid hormone in your blood. When to get medical care Call your healthcare provider right away if you have any of these: New symptoms Symptoms that return, continue, or get worse even with treatment Extreme fatigue Puffy hands, face, or feet Fast or irregular heartbeat Confusion Call 911 Call 911 if any of these occur: Fainting Chest pain Shortness of breath or trouble breathing Last Reviewed Date: 2024 00:00:00 [id number] [employer]. All rights reserved. This information is not intended as a substitute for professional medical care. Always follow your healthcare professional's instructions. documented in this encounter Plan of Treatment Upcoming Encounters Date Type Department Care Team (Late st Contact Info) Description 11/18/2024 2:30 PM EDT Office Visit Family Medicine [address] [place] [phone] [place] [phone] 05/31/2025 10:30 AM EST Nurse Only Ancillary [address] [place] [address] [place], Nurse Annual [address] [place] [id number] Scheduled Procedures Name Priority Associated Diagnoses Date/Ti [...] 04/21/2025 04/21/2024, 08/04, 07/15/2023, Additional history exists Adult Wellness Visit 05/28/2025 05/28/2024 Depression Screening 05/28/2025 05/28/2024 O2 ASSESSMENT COMPLETED IN PAST YEAR FOR COPD 05/28/2025 05/28/2024 Diabetes Screening 04/21/2027 04/21/2024, 0 08/21/2023, 07/27/2022, [...] as of this encounter Visit Diagnoses Diagnosis Routine general medical examination at a health care facility- Primary Risk and functional assessment Screening for unspecified condition Acquired hypothyroidism Unspecified hypothyroidism COPD, group B, by GOLD 2017 classification (HCC) Gastroesophageal reflux disease without esophagitis Esophageal reflux Generalized osteoarthritis Generalized osteoarthrosis, unspecified site HTN, goal below 130/80 Unspecified essential hypertension Hyperlipidemia with target LDL less than 100 Other and unspecified hyperlipidemia SANDRA (obstructive sleep apnea) Obstructive sleep apnea (adult) (pediatric) Uncomplicated alcohol dependence (HCC) Other and unspecified alcohol dependence, unspecified drinking behavior documented in this encounter Care Teams Taxation Agent Relationship Specialty Start Date End Date Liliane Pena DO [address] [place] [address] [place] [phone] PCP - General Internal Medicine 05/24/17 documented as of this encounter
--- OUTSIDE RECORDS SUMMARY | 2024-06-28 12:00 | External Medical Summary | Summary of Care ---
Author Name Unknown Organization [facility] Address [address] [place] [address] Phone [phone] Care Team Providers Care Pencils Washer Name Role Phone Cipriano To Primary Care Provider Reason for Visit * Reason Onset Date Comments Advice 06/19/2024 Encounter Details Date Type Department Care Team (Late st Contact Info) Description 06/19/2024 Telephone Care Coordination and Integration [address], [place] [id number] Martha Clinton, YEIMI [address], [place] [id number] Advice Allergies Active Allergy Reactions Criticality Noted [...] 07/07 Overview (07/07/2020): Noted on imaging at [facility] 07/2020. Pulmonary nodule 07/07/2020 Overview (07/07/2020): KEITH, on imaging from [facility] 07/2020. Consider pulmonary referral. Hiatal hernia [...] mRNA, LNP-s, No Pre serve, 2-Dose Series ([employer]cloud) 08/31/2020,08/10/2020 Pneumococcal Conjugate Vacc, 13 Valent (Prevnar) 06/25/2017 Pneumococcal Conjugate Vacci ne, 20-valent (Uxtviys10) 04/21/2024 Pneumococcal Polysaccharide PPV23 (Pneumovax) 01/22/2019 Seasonal [...] No 05/28/2024 Does the household have a [facility] source of income? (Household - for ages [...] 06/22/2024 12:15 PM EST Imaging Radiology [address] [place] [id number] 07/13/2024 2:00 PM EDT Telemedicine [facility] [address] [place] [phone] Angela Chilel PA-C [address] [place] [address] 11/16/2024 11:00 AM EDT Imaging Radiology [facility] [address] [place] [phone] 11/18/2024 2:30 PM EDT Office Visit Family Medicine [address] [place] [phone] Cipriano [address] [place] [address] 05/31/2025 10:30 AM EST Nurse Only Ancillary [address] [place] [address] [place], Nurse [address] [place] [address] Scheduled Orders Name Type Priority Associated Diagnoses [...] hypothyroidism documented in this encounter Care Teams Pencils Washer Relationship Specialty Start Date End Date Cipriano To DO [address] [place] [address] [place] [id number] PCP - General Internal Medicine 05/24/17 documented as of this encounter
--- OUTSIDE RECORDS SUMMARY | 2024-06-28 12:00 | External Medical Summary | Summary of Care ---
Author Name Unknown Organization [facility] Address [address] [address] Phone [phone] Care Team Providers Care Hydroelectric Operator Name Role Phone PenaLiliane byrd Primary Care Provider Reason for Visit * Reason Comments Outpatient Testing Encounter Details Date Type Department Care Team (Late st Contact Info) Description 05/28/2024 11:00 AM EST Laboratory Laboratory [address] [place] [phone] [place] [address] Hyperkalemia; Acquired hypothyroidism Allergies Active Allergy Reactions Criticality Noted Date Comments Venlafaxine 08/22/2017 Excessive cough, throat tightness Indomethacin 08/23/2023 nightmares documented as of this encounter (statuses as of 05/28/2024) Medications Albuterol Sulfate (2.5 MG/3ML) 0.083% Inhalation Nebulization Solution (Proventil)Indicat ions:Pulmonary emphysema, unspecified emphysema type (HCC) Inhale 1 Vial via nebulizer every 4 hours as needed for Wheezing. 90 mL 2 1 Active Diclofenac Sodium 1 % External Gel (Voltaren) APPLY TO NECK TWO TIMES A DAY NEEDED FOR PAIN 100 g 3 07/04/2023 3:34 PM EST 4 06/02/19 25 Active Metoprolol Succinate ER 50 MG Oral [...] 100 Tablet 2 02/29/2024 10:44 AM EDT 4 Active Trelegy Ellipta 100-62.5-25 MCG/ACT Aerosol Powder Breath Activated (Fluticasone-Umecl idinium-Vilanterol )Indications:COPD, group B, by GOLD 2017 classification (HCC) INHALE ONE PUFF BY MOUTH EVERY MORNING 180 Each 2 05/08/2024 12:20 PM EST 4 02/07/20 25 Active Losartan Potassium 25 MG Oral Tablet (Cozaar) Take 1 Tablet by mouth in the morning. 100 Tablet 3 04/01/2024 2:59 PM EST 4 Active Levothyroxine Sodium 100 MCG Oral Tablet (Levoxyl) Take 1 Tablet by mouth in the morning at least 30 min prior to breakfast or other meds 100 Tablet 1 05/11/2024 6:34 PM EST 5 Active Aspirin 81 MG Oral Tablet Delayed Release Take 1 Tablet by mouth in the morning. Active Tylenol 325 MG Oral Capsule (Acetaminophen) Take 2 Tablets by mouth as needed (pain). Active documented as of this encounter (statuses [...] 07/07 Overview (07/07/2020): Noted on imaging at [facility] 07/2020. Pulmonary nodule 07/07/2020 Overview (07/07/2020): KEITH, on imaging from [facility] 07/2020. Consider pulmonary referral. Hiatal hernia 06/19/2018 [...] mRNA, LNP-s, No Pre serve, 2-Dose Series ([employer]) 08/31/2020,08/10/2020 Pneumococcal Conjugate Vacc, 13 Valent (Prevnar) 06/25/2017 Pneumococcal Conjugate Vacci ne, 20-valent ([id number]) 04/21/2024 Pneumococcal Polysaccharide PPV23 (Pneumovax) 01/22/2019 Seasonal [...] No 05/28/2024 Does the household have a [facility] source of income? (Household - for ages [...] 2:30 PM EDT Office Visit Family Medicine [address] [place] [phone] Liliane Pena [address] [place] [address] 05/31/2025 10:30 AM EST Nurse Only Ancillary [address] [place] [address] [place], Nurse Annual [address] [place] [address] Pending Results Name Type Priority Associated Diagnoses Date /Time POTASSIUM Lab Routine Hyperkalemia 05/28/2024 10:59 AM EST TSH Lab Routine Acquired hypothyroidism 05/28/2024 10:59 AM EST Scheduled Procedures Name Priority Associated Diagnoses Date/Ti [...] 07/27/2022, Additional history exists TSH 04/21/2025 04/21/2024, 1 11/2023, 07/15/2023, Additional history exists Adult Wellness Visit [...] as of this encounter Visit Diagnoses Diagnosis Hyperkalemia Hyperpotassemia Acquired hypothyroidism Unspecified hypothyroidism documented in this encounter Care Teams Hydroelectric Operator Relationship Specialty Start Date End Date Liliane Pena DO [address] [place] [address] [place] [address] PCP - General Internal Medicine 05/24/17 documented as of this encounter
--- OUTSIDE RECORDS SUMMARY | 2024-06-28 12:00 | External Medical Summary | Summary of Care ---
Author Name Unknown Organization [facility] Address [address] [place] [address] Phone [phone] Care Team Providers Care Director Merit System Name Role Phone Cipriano To Primary Care Provider Reason for Visit * Reason Onset Date Comments Advice 06/19/2024 Encounter Details Date Type Department Care Team (Late st Contact Info) Description 06/19/2024 Telephone Care Coordination and Integration [address], [place] [id number] Martha Clinton, YEIMI [address], [place] [phone] Advice Allergies Active Allergy Reactions Criticality Noted [...] 07/07 Overview (07/07/2020): Noted on imaging at [facility] 07/2020. Pulmonary nodule 07/07/2020 Overview (07/07/2020): KEITH, on imaging from [facility] 07/2020. Consider pulmonary referral. Hiatal hernia [...] mRNA, LNP-s, No Pre serve, 2-Dose Series ([employer]) 08/31/2020,08/10/2020 Pneumococcal Conjugate Vacc, 13 Valent (Prevnar) 06/25/2017 Pneumococcal Conjugate Vacci ne, 20-valent ([id number]) 04/21/2024 Pneumococcal Polysaccharide PPV23 (Pneumovax) 01/22/2019 Seasonal [...] Description 06/22/2024 12:15 PM EST Imaging Radiology [address] [place] [address] 07/13/2024 2:00 PM EDT Telemedicine Interventional [facility] Center [facility] [address] [place] [phone] Angela Chilel PA-C [address] [place] [address] 11/16/2024 11:00 AM EDT Imaging Radiology [facility] [address] [place] [phone] 11/18/2024 2:30 PM EDT Office Visit Family Medicine [address] [place] [phone] Cipriano [address] [place] [address] 05/31/2025 10:30 AM EST Nurse Only Ancillary [address] [place] [address] [place], Nurse [address] [place] [address] Scheduled Orders Name Type Priority Associated Diagnoses [...] hypothyroidism documented in this encounter Care Teams Director Merit System Relationship Specialty Start Date End Date Cipriano To DO [address] [place] [address] [place] [address] PCP - General Internal Medicine 05/24/17 documented as of this encounter
--- OUTSIDE RECORDS SUMMARY | 2024-06-28 12:00 | External Medical Summary | Summary of Care ---
Author Name Unknown Organization [facility] Address [address] [facility] [place] [address] Phone [phone] Care Team Providers Care Cloth Calender Name Role Phone Liliane Pena DO Primary Care Provider + [phone] Reason for Referral * Precert (Within 10 days (routine)) - Authorized Specialty Diagnoses / Procedures Referred By Contac t Referred To Contact Radiology Diagnoses Lumbar radicular pain History of lumbar laminectomy Procedures MRI L SPINE WO CONTRAST Angela Chilel PA-C [address] [place] [address] Phone: tel: fax: Referral ID Status Reason Start Date Expiration Date V isits Requested Visits Authorized [id number] Authorized 06/16/2024 999 999 Reason for Visit * Reason Comments Leg Pain L > R LE * Evaluate & Treat - Unlimited Visits (Within 10 days (routine)) - Authorized Specialty Diagnoses / Procedures Referred By Contac t Referred To Contact Pain Management / Pain Medicine Diagnoses Cervical spinal stenosis Liliane Pena DO [address] [place] [address] [place] [address] Phone: tel: fax: Referral ID Status Reason Start Date Expiration Date Visits Requested Visits Authorized [id number] Authorized Specialty Services Required 06/02/2024 999 [id number] Encounter Details Date Type Department Care Team (Late st Contact Info) Description 06/09/2024 8:00 AM EST Office Visit Interventional Pain Center [facility] [address] [place] [phone] Angela Chilel PA-C [address] [place] [address] Lumbar radicular pain*; History of lumbar laminectomy Allergies Active Allergy Reactions Criticality Noted Date Comments Venlafaxine 08/22/2017 Excessive cough, throat tightness Indomethacin 08/23/2023 nightmares documented as of this encounter (statuses as of 06/09/2024) Medications Albuterol Sulfate (2.5 MG/3ML) 0.083% Inhalation [...] take with food. 21 Tablet 5 Active documented as of this encounter (statuses as of 06/09/2024) Active Problems Problem Noted Date Diagnosed Date Hyperlipidemia with target LDL less than 100 Gastroesophageal reflux disease without esophagi tis 03/31/2024 Stenosis of left subclavian artery 11/27/2021 Overview (11/27/2021): All blood pressures in right arm. Bruit 11/25/2021 Overview (11/25/2021): ?subclavian artery Centrilobular emphysema 08/18/2021 Hepatic steatosis 01/24/2021 Adenoma of left adrenal gland 01/24/2021 Overview (01/25/2021): 1.[address] SANRDA (obstructive sleep apnea) 01/03/2021 Uncomplicated alcohol dependence 08/04/2020 Tachycardia 07/12/2020 COPD, group B, by GOLD 2017 classification 07/07 Overview (07/07/2020): Noted on imaging at [facility] 07/2020. Pulmonary nodule 07/07/2020 Overview (07/07/2020): KEITH, on imaging from [facility] 07/2020. Consider pulmonary referral. Hiatal hernia 06/19/2018 Overview (06/19/2018): Small. Per EGD 06/2018 Generalized osteoarthritis 05/24/2017 Acquired hypothyroidism 01/29/2017 Mixed dyslipidemia 01/29/2017 HTN, goal below 130/80 01/29/2017 documented as of this encounter (statuses as of 06/09/2024) Resolved Problems Problem Noted Date Diagnosed Date Resolved Date Swelling of both hands 11/24/202108/22 Heart murmur 07/12/2020 08/09/2020 Moderate episode of recurren t major depressive disorder 05/24/2017 01/26/2020 Alcohol consumption of more than two drinks per day 05/24/2017 08/23/2023 Tobacco use disorder 01/29/2017 021 documented as of this encounter (statuses as of 06/09/2024) Immunizations Name Administration Dates Next Due COVID-19 mRNA, LNP-s, No Pre serve, 2-Dose Series ([employer]) 08/31/2020,08/10/2020 Pneumococcal Conjugate Vacc, 13 Valent (Prevnar) 06/25/2017 Pneumococcal Conjugate Vacci ne, 20-valent ([id number]) 04/21/2024 Pneumococcal Polysaccharide PPV23 (Pneumovax) 01/22/2019 Seasonal [...] on file documented as of this encounter Progress Notes * Angela Chilel PA-C - 06/09/2024 7:53 AM EST GENERAL HISTORY & PHYSICAL EXAMINATION - Anesthesia and Pain Service Name: Elif Weinstein Location: [facility] REFERRING PHYSICIAN: Liliane Pena DO Thank you for referring Elif Weinstein. CHIEF COMPLAINT: L hip pain HPI: Elif Weinstein is a 69 year old female who complains of low back pain that radiates to L > > R lateral thigh, calf and into foot. LE pain is more bothersome than lumbar. Low back pain started number of years ago with new onset L > R LE radiculopathy in the past year --- significantly worse x's four months, no injury. No recent L spine imaging. She does follow with [facility], hx ACDF 2022. No lasting pain relief with home stretching, medication management. Symptoms occur daily. Describes pain as "shooting," "littler hammer beating me" in posterior L LE. Pain is constant, rated 5/10 on average, increases to 9/10 at worst. Aggravating factors include: lying supine or on L side. Unable to provide alleviating factors. Admits associated paresthesia L > R foot, lateral foot on L and R great toe. Associated weakness L > R LE. Denies bowel or bladder incontinence. Hx lumbar decompression while living in [place], approximately 13 years ago. Denies hx of lumbar injections. Significantly impacting sleep - she notes approximately two hours of consecutive sleep. Recent consultation with [facility] in [place], does not plan on returning. Secondary complaint of chronic neck and L shoulder pain. Prefers to focus on lumbar region. Hx TUYET, most recently 2020. Of note, recent referral was placed for cervical radiculopathy, again she prefers to address lumbarregion first. Significant past medical hx includes: COPD, HTN, GERD. Current medications used for pain: tylenol, diclofenac gel. Past medications used for pain: oral steroid. Anticoagulation therapy: aspirin 81 mg Diabetic: no PAST MEDICAL HISTORY: Past Medical History: Diagnosis Date Acquired hypothyroidism 01/29/2017 Adenoma of left adrenal gland 01/24/[address] COPD (chronic obstructive pulmonary disease) (HCC) Generalized osteoarthritis 05/24/2017 Hepatic steatosis 01/24/2021 Hiatal hernia HTN, goal below 140/90 01/29/2017 Lung nodule Mixed dyslipidemia 01/29/2017 Spontaneous pneumothorax Tobacco use disorder 01/29/2017 Past Medical History - Pertinent Findings: (-) clotting disorder, (-) anesthetic problem PAST SURGICAL HISTORY: Past Surgical History: Procedure Laterality Date ANESTH, LUMBAR SPINE/CORD SURGERY pinched nerve COLONOSCOPY, DIAGNOSTIC (RECTUM) 09/08/2020 sigmoid diver diverticulosis, 1 polyp, internal hemorrhoids / hyperplastic polyp / 5 year recall / COLONOSCOPY FLEXIBLE PROXIMAL DIAGNOSTIC performed by Carlotta Bear MD at [facility] CT CHEST WO CONTRAST N/A 01/24/2021 upper lobe reticular process, stable 5mm nodule, hepatic steatosis, 1.4 cm left adrenal adenoma EGD, FLEXIBLE, DIAGNOSTIC 06/19/2018 reflux, hiatal hernia, repeat 1-2 yrs/ESOPHAGOGASTRODUODENOSCOPY (EGD), FLEXIBLE, TRANSORAL, DIAGNOSTIC performed by Carlotta Bear MD at [facility] EGD, FLEXIBLE, DIAGNOSTIC 11/24/2019 variable GE junction/biopsies show Barretts, inactive inflammation of stomach/repeat 2-3 years/ESOPHAGOGASTRODUODENOSCOPY (EGD), FLEXIBLE, TRANSORAL, DIAGNOSTIC performed by Carlotta Bear MD at [facility] EGD, FLEXIBLE, DIAGNOSTIC 06/26/2022 normal bx, repeat 2 yrs / ESOPHAGOGASTRODUODENOSCOPY (EGD), FLEXIBLE, TRANSORAL, DIAGNOSTIC performed by Carlotta Bear MD at [facility] INJECT DX/THER SUBSTANCE INTERLAMINAR CERVICAL/THORACIC W IMAGE GUIDE 04/08/2017 INJECTION SPINE LUMBAR CERVICAL OR THORACIC performed by Sean Em Cousins, DO at [facility] INJECT DX/THER SUBSTANCE INTERLAMINAR CERVICAL/THORACIC W IMAGE GUIDE 08/25/2020 INJECTION SPINE LUMBAR CERVICAL OR THORACIC performed by Sean Perea Cousins, DO at [facility] MAMMOGRAM SCREENING BILATERAL Bilateral 03/18/2020 heterogeneously dense, category 2 repeat 1 year. THORACOTOMY 1980 collapsed lung FAMILY HISTORY: Family History Problem Relation Name Age of Onset Cancer Mother Pancreatic, age 78 Heart attack Father Fatal [place] age 42 Heart Disorder Sister Tina Helm, age 6 months Prostate cancer Brother Isaías Family History - Pertinent Findings: (-) clotting disorder and (-) anesthetic problem SOCIAL HISTORY: Social History Tobacco Use Smoking status: Former Current packs/day: 0.00 Average packs/day: 1.5 packs/day for 50.0 years (74.9 ttl pk-yrs) Types: Cigarettes Start date: 05/06/1973 Quit date: 07/05/2020 Years since quittin.9 Smokeless tobacco: Never Tobacco comments: Smokes 1-2 cigarettes "when I'm having a bad day". Vaping Use Vaping status: Never Used Substance Use Topics Alcohol use: Not Currently Comment: pt quit drinking Drug use: Yes Frequency: 7.0 times per week Types: Marijuana Comment: pt does do the marijana gummies for pain prn CURRENT MEDICATIONS: Note that discontinued and completed medications (per the MAR) continue to display for 24 hours. Ordered medications to be given in the future also display. Current Outpatient Medications Medication Sig Dispense Refill Albuterol Sulfate (2.5 MG/3ML) 0.083% Inhalation Nebulization Solution (Proventil) Inhale 1 Vial via nebulizer every 4 hours as needed for Wheezing. 90 mL 2 Metoprolol Succinate ER 50 MG Oral Tablet [...] Ellipta 100-62.5-25 MCG/ACT Aerosol Powder Breath Activated (Miooqydpizd-Mchqiokjuwmb-Bwaynceaih) INHALE ONE PUFF BY MOUTH EVERY MORNING [...] 2 Tablets by mouth as needed (pain). No current facility-administered medications for this visit. ALLERGIES: Effexor [venlafaxine] and Indomethacin ROS: Constitutional: Negative for fatigue, fever, appetite change, unexplained weight loss. ENT: Negative for hearing loss, sore throat. Respiratory: Negative for cough, shortness of breath, dyspnea. Musculoskeletal: + neck, low back and LE pain - see HPI Neurological: Negative for headaches, seizures. + paresthesias B LE - see HPI Genitourinary: Negative for dysuria, urinary frequency, hematuria. Hematologic/ Lymphatic: Negative for easy bleeding, bruising, lymphadenopathy. Gastrointestinal: Negative for abdominal pain, nausea, vomiting, constipation, diarrhea. Cardiovascular: Negative for chest pain, palpitations, ankle swelling, orthopnea. PHYSICAL EXAMINATION: Most Recent Vital Signs: There were no vitals filed for this visit. General Appearance: Patient appears to be about stated age, pleasant and cooperative with normal affect. HEENT: head normocephalic and pupils equal round and reactive to light and accommodation, EOMI Chest: No gross abnormality. Nonlabored breathing. Lumbar Spine: Normal lumbar lordatic curvature is present. Skin is intact with well healed midline surgical scar. No masses palpable. Midline, B paravertebral musculature nontender. B sacroiliac joint nontender. No evidence of myofascial trigger points. Limited active ROM with flexion and extensionof the lumbar spine. Lower Extremity Strength: Hip Flexion 5/5 bilaterally. Hip Abductor 5/5 bilaterally. Hip Adductor 5/5 bilaterally. Extensor Hallicus Longus 5/5 bilaterally. Deep Tendon Reflex: Patellar: 2/4 bilaterally. Achilles: 1/4 bilaterally. Low Back Provocative Testing: TABITHA test: negative bilaterally. Straight Leg Raise Test: positive L, negative R. Lumbar Facet Loading: positive bilaterally. Sensation: Dermatomal sensation not formally tested. Grossly normal and symmetric unless otherwise specified. Gait: Intact, no sign of ataxia. Ambulates without assistance. IMAGING: No recent L spine imaging to review. L spine xray 2018 - mild compression changes L1, grade 1 listhesis L2/3, at least moderate DDD L2/3thru L5/S1, multilevel facet arthropathy with osteophyte formation. ASSESSMENT: Lumbar radicular pain, LEFT L5/S1 pattern S/P lumbar laminectomy PLAN: Update L spine xray and MRI for further evaluation of radiculopathy. Follow up via telephone to review images. Patient prefers telephone, noting her phone in unable to complete video follow up. While waiting for imaging, will trial oral steroid as this has provided benefit in the past. Possible side effects including but not limited to facial flushing, fluid retention, insomnia and hyperglycemia were reviewed and accepted. Advised to avoid NSAIDs use while taking this medication. Encouraged to take with food. Angela Chilel PA-C 06/09/2024 documented in this encounter Plan of Treatment Upcoming Encounters Date Type Department Care Team (Late st Contact Info) Description 06/22/2024 12:15 PM EST Imaging Radiology [address] [place] [address] 07/13/2024 2:00 PM EDT Telemedicine Interventional [facility] Center [facility] [address] [place] [phone] Angela Chilel PA-C [address] [place] [address] 11/16/2024 11:00 AM EDT Imaging Radiology [address] [place] [phone] 11/18/2024 2:30 PM EDT Office Visit Family Medicine [address] [place] [phone] Liliane Pena, [address] [place] [address] 05/31/2025 10:30 AM EST Nurse Only Ancillary [address] [place] [address] [place], Nurse Annual Wellness [address] [place] [address] [place] [address] Scheduled Orders Name Type Priority Associated Diagnoses Orde r Schedule MRI L SPINE WO CONTRAST Medical Imaging Routine Lumbar radicular pain History of lumbar laminectomy Expected: 06/16/2024, Expires: 07/07/2025 Scheduled Procedures Name Priority Associated Diagnoses Date/Ti [...] Not on filedocumented as of this encounter Procedures Procedure Name Priority Date/Time Associated Diagnosis Comments XR L SPINE COMPLETE W BENDING 6 VIEWS Routine 06/09/2024 8:52 AM EST Lumbar radicular pain History of lumbar laminectomy documented in this encounter Results * XR L SPINE COMPLETE W BENDING 6 VIEWS (06/09/2024 8:52 AM EST) Anatomical Region Laterality Modality Vertebra, Lspine Computed Radiog brien 06/09/2024 11:2 9 AM EST Impressions 06/09/2024 11:27 AM EST IMPRESSION Degenerative findings as above. Narrative 06/09/2024 11:27 AM EST EXAM XR L SPINE COMPLETE W BENDING 6 VIEWS- 06/09/2024 8:52 am HISTORY Provided clinical history: "progressive low back pain that radiates to L LE, L5/S1 pattern" TECHNIQUE Eight views of the lumbar spine were obtained. COMPARISON Lumbar spine radiographs dated August 22, 2017. FINDINGS Five lumbar-type vertebral bodies. Multilevel intervertebral disc degeneration, severe at L2 through S1. Multilevel facet osteoarthritis, greatest near the lumbosacral junction. Mild dextrocurvature of the lower lumbar spine. No dynamic instability on the flexion/extension views. No fracture or bone lesion. Mild bilateral sacroiliac osteoarthritis. Atherosclerotic calcifications. Procedure Note Bigger, Augustine Rock MD - 06/09/2024 EXAM XR L SPINE COMPLETE W BENDING 6 VIEWS- 06/09/2024 8:52 am HISTORY Provided clinical history: "progressive low back pain that radiates to LLE, L5/S1 pattern" TECHNIQUE Eight views of the lumbar spine were obtained. COMPARISON Lumbar spine radiographs dated August 22, 2017. FINDINGS Five lumbar-type vertebral bodies. Multilevel intervertebral discdegeneration, severe at L2 through S1. Multilevel facet osteoarthritis,greatest near the lumbosacral junction. Mild dextrocurvature of the lowerlumbar spine. No dynamic instability on the flexion/extension views. Nofracture or bone lesion. Mild bilateral sacroiliac osteoarthritis.Atherosclerotic calcifications. IMPRESSION IMPRESSION Degenerative findings as above. us Angela Chilel PA-C RADIOLOGY ([facility]) Final R esult documented in this encounter Visit Diagnoses Diagnosis Lumbar radicular pain- Primary Thoracic or lumbosacral neuritis or radiculitis, unspecified History of lumbar laminectomy documented in this encounter Care Teams Cloth Calender Relationship Specialty Start Date End Date Liliane Pena DO [address] [place] [address] [place] [address] PCP - General Internal Medicine 05/24/17 documented as of this encounter
--- OUTSIDE RECORDS SUMMARY | 2024-06-28 12:00 | External Medical Summary ---
Author Name Unknown Address Unknown Organization [id number]:[facility] [place] [address] [place] [address] Laboratory Report Ordering Provider Test Date Status CIPRIANOTO 05/28/2024 10:59:50 Final Observation Date Value Abnormality Reference (Units ) Status Potassium 05/28/2024 10:59:50 4.5 3.5-5.1 (m mol/L) Final Performing Location [facility] [place] [address] [place] [address]
--- OUTSIDE RECORDS SUMMARY | 2024-06-28 12:01 | External Medical Summary | Summary of Care ---
Author Name Unknown Organization [facility] Address [address] [facility] [place] [address] Phone [phone] Care Team Providers Care It Generalist Name Role Phone Liliane Pena DO Primary Care Provider Reason for Visit * Reason Onset Date Comments Test Results 04/26/2024 Encounter Details Date Type Department Care Team (Late st Contact Info) Description 04/26/[address] [place] [phone] Liliane Pena [address] [address] Test Results Allergies Active Allergy Reactions Criticality Noted Date Comments Venlafaxine 08/22/2017 Excessive cough, throat tightness Indomethacin 08/23/2023 nightmares documented as of this encounter (statuses as of 05/08/2024) Medications Albuterol Sulfate (2.5 MG/3ML) 0.083% Inhalation Nebulization Solution (Proventil)Indica tions:Pulmonary emphysema, unspecified emphysema type (HCC) Inhale 1 Vial via nebulizer every 4 hours as needed for Wheezing. 90 mL 2 021 Active Diclofenac Sodium 1 % External Gel (Voltaren) APPLY TO NECK TWO TIMES A DAY NEEDED FOR PAIN 100 g 3 4 3:34 PM EST 01/2024 Active Metoprolol Succinate ER 50 MG Oral Tablet Extended Release 24 Hour (toPROL XL)Indications:HT N, goal below 130/80,Tachycardi a TAKE ONE TABLET BY MOUTH EVERY MORNING 100 Tablet 3 4 10:03 AM EST 024 2024 Active Additional Information Patient not taking.Reported on 03/31/2024 Albuterol Sulfate HFA 108 (90 Base) MCG/ACT Inhalation Aerosol Solution INHALE TWO PUFFS BY MOUTH EVERY 6 HOURS NEEDED FOR COUGH, SHORTNESS OF BREATH, WHEEZING, OR DYSPNEA 54 g 1 4 1:26 PM EST Active Pantoprazole Sodium 20 MG Oral Tablet Delayed Release (Protonix)Indicat ions:Hiatal hernia TAKE ONE TABLET BY MOUTH EVERY MORNING 30 MINUTES BEFORE THE FIRST MEAL OF THE DAY. DO NOT CRUSH, CUT OR CHEW 100 Tablet 3 5 9:07 AM EST 2024 Active Clobetasol Propionate 0.05 % External Ointment (Temovate)Indicat ions:Rash and nonspecific skin eruption Apply twice daily to lower legs up to 2 weeks, then taper to weekends only Sat-Sat as needed 60 g 2 Active Additional Information Patient not taking.Reported on 03/31/2024 Atorvastatin Calcium 40 MG Oral Tablet (Lipitor) TAKE ONE TABLET BY MOUTH IN THE MORNING. 100 Tablet 2 4 10:44 AM EDT Active Trelegy Ellipta 100-62.5-25 MCG/ACT Aerosol Powder Breath Activated (Fluticasone-Umec lidinium-Vilanter ol)Indications:CO PD, group B, by GOLD 2017 classification ([facility]) INHALE ONE PUFF BY MOUTH EVERY MORNING 180 Each 2 5 12:20 PM EST 2024 Active Losartan Potassium 25 MG Oral Tablet (Cozaar) Take 1 Tablet by mouth in the morning. 100 Tablet 3 4 2:59 PM EST Active Levothyroxine Sodium 100 MCG Oral Tablet (Levoxyl) Take 1 Tablet by mouth in the morning. (at least 30 min prior to breakfast or other meds). 100 Tablet 1 025 Active Levothyroxine Sodium 88 MCG Oral Tablet (Levoxyl) take 1 tablet by mouth in the morning at least 30 min prior to breakfast or other meds 100 Tablet 1 5 4:58 PM EST 024 2024 Discontinued documented as of this encounter (statuses as of 05/08/2024) Active Problems Problem Noted Date Diagnosed Date [...] 07/07 Overview (07/07/2020): Noted on imaging at [facility] 07/2020. Pulmonary nodule 07/07/2020 Overview (07/07/2020): KEITH, on imaging from [facility] 07/2020. Consider pulmonary referral. Hiatal hernia 06/19/2018 Overview (06/19/2018): Small. Per EGD 06/2018 Generalized osteoarthritis 05/24/2017 Acquired hypothyroidism 01/29/2017 Mixed dyslipidemia 01/29/2017 HTN, goal below 130/80 01/29/2017 documented as of this encounter (statuses as of 05/08/2024) Resolved Problems Problem Noted Date Diagnosed Date Resolved Date Swelling of both hands 11/24/202108/22 Heart murmur 07/12/2020 08/09/2020 Moderate episode of recurren t major depressive disorder 05/24/2017 01/26/2020 Alcohol consumption of more than two drinks per day 05/24/2017 08/23/2023 Tobacco use disorder 01/29/2017 021 documented as of this encounter (statuses as of 05/08/2024) Immunizations Name Administration Dates Next Due COVID-19 mRNA, LNP-s, No Pre serve, 2-Dose Series (Pfizer) 08/31/2020,08/10/2020 Pneumococcal Conjugate Vacc, 13 Valent (Prevnar) 06/25/2017 Pneumococcal Conjugate Vacci ne, 20-valent ([id number]) 04/21/2024 Pneumococcal Polysaccharide PPV23 (Pneumovax) 01/22/2019 Seasonal [...] encounter Miscellaneous Notes * Telephone Encounter - Liliane Pena DO - 05/08/2024 2:54 PM EST Script sent. * Telephone Encounter - Azucena Chen RN - 05/08/2024 2:33 PM EST Patient notified , patient was in [place] for the holidays and forgot her phone and glasses. Patient did return home and just received letter in the mail. Discussed results and recommendations. Patient is taking thyroid med as directed 88mcg and will need increase dose sent to [facility] Message sent to provider to send prescription * Telephone Encounter - Christy Waite CMA - 04/30/2024 11:48 AM EST Attempted to call patient, there was no answer, left voicemail. When patient returns call, ok for SANDRA to relay message, please refer to below documentation. If needed, can transfer to dedicated nurse line at [phone] * Telephone Encounter - Liliane Pena DO - 04/26/2024 9:52 PM EST Please call patient: Potassium is a little high. Limit intake of potassium rich foods. Thyroid is under-treated. Confirm that she is taking her thyroid medicine correctly - every day on an empty stomach, 30 minutes before eating or taking her other pills. If she is not taking it this way, re-enforce proper administration. If she is taking it this way, route back to me and will increase her dose. Repeat labs in 6 weeks - potassium and TSH - ordered. documented in this encounter Plan of Treatment Upcoming Encounters Date Type Department Care Team (Late st Contact Info) Description 05/26/2024 10:00 AM EST Nurse Only Ancillary [address] [place] [address] [place], Nurse Annual Wellness [address] [place] [address] [place] [address] 11/18/2024 2:30 PM EDT Office Visit Family Medicine [address] [place] [phone] Liliane Pena DO [address] [place] [address] [place] [address] Scheduled Orders Name Type Priority Associated Diagnoses Orde r Schedule POTASSIUM Lab Routine Hyperkalemia Expected: 06/07/2024 (Approximate), Expires: 04/26/2025 TSH Lab Routine Acquired hypothyroidism Expected: 06/07/2024 (Approximate), Expires: 04/26/2025 Scheduled Procedures Name Priority Associated Diagnoses Date/Ti [...] as of this encounter Visit Diagnoses Diagnosis Hyperkalemia- Primary Hyperpotassemia Acquired hypothyroidism Unspecified hypothyroidism documented in this encounter Care Teams It Generalist Relationship Specialty Start Date End Date Liliane Pena DO [address] [place] [address] [place] [address] PCP - General Internal Medicine 05/24/17 documented as of this encounter
--- OUTSIDE RECORDS SUMMARY | 2024-06-28 12:01 | External Medical Summary | Summary of Care ---
Author Name Unknown Organization [facility] Address [address] [facility] [place] [address] Phone [phone] Care Team Providers Care Assistant To The Dean Name Role Phone Pena, Lilianebekah Isaac Primary Care Provider Encounter Details Date Type Department Care Team (Late st Contact Info) Description 04/21/2024 9:20 AM EST Nurse Only Ancillary [address] [place] [address] [place], Nurse [address] [place] [address] Arrived Allergies Active Allergy Reactions Criticality Noted Date Comments Venlafaxine 08/22/2017 Excessive cough, throat tightness Indomethacin 08/23/2023 nightmares documented as of this encounter (statuses as of 04/21/2024) Medications Albuterol Sulfate (2.5 MG/3ML) 0.083% Inhalation [...] CRUSH, CUT OR CHEW 100 Tablet 3 01/28/2024 10:42 AM EDT 07/16/19 24 025 Active Clobetasol Propionate 0.05 % External Ointment (Temovate)Indicati ons:Rash and nonspecific skin eruption Apply twice daily to lower legs up to 2 weeks, then taper to weekends only Fri-Sat as needed 60 g 2 09/19/19 Active Additional Information Patient not taking.Reported on 03/31/2024 Atorvastatin Calcium 40 MG Oral Tablet (Lipitor) TAKE ONE TABLET BY MOUTH IN THE MORNING. 100 Tablet 2 02/29/2024 10:44 AM EDT 11/20/19 24 Active Levothyroxine Sodium 88 MCG Oral Tablet (Levoxyl) take 1 tablet by mouth in the morning at least 30 min prior to breakfast or other meds 100 Tablet 1 01/27/2024 4:04 PM EDT 01/27/20 24 Active Trelegy Ellipta 100-62.5-25 MCG/ACT Aerosol Powder Breath Activated (Fluticasone-Umecl idinium-Vilanterol )Indications:COPD, group B, by GOLD 2017 classification ([facility]) INHALE ONE PUFF BY MOUTH EVERY MORNING 180 Each 2 02/07/2024 4:02 PM EDT 02/07/20 24 Active Losartan Potassium 25 MG Oral Tablet (Cozaar) Take 1 Tablet by mouth in the morning. 100 Tablet 3 04/01/2024 2:59 PM EST 11/26/20 24 Active documented as of this encounter (statuses as of 04/21/2024) Active Problems Problem Noted Date Diagnosed Date [...] 07/07/2020 Overview (07/07/2020): KEITH, on imaging from [facility] 07/2020. Consider pulmonary referral. Hiatal hernia 06/19/2018 Overview (06/19/2018): Small. Per EGD 06/2018 Generalized osteoarthritis 05/24/2017 Acquired hypothyroidism 01/29/2017 Mixed dyslipidemia 01/29/2017 HTN, goal below 130/80 01/29/2017 documented as of this encounter (statuses as of 04/21/2024) Resolved Problems Problem Noted Date Diagnosed Date Resolved Date Swelling of both hands 11/24/202108/22 Heart murmur 07/12/2020 08/09/2020 Moderate episode of recurren t major depressive disorder 05/24/2017 01/26/2020 Alcohol consumption of more than two drinks per day 05/24/2017 08/23/2023 Tobacco use disorder 01/29/2017 021 documented as of this encounter (statuses as of 04/21/2024) Immunizations Name Administration Dates Next Due COVID-19 mRNA, LNP-s, No Pre serve, 2-Dose Series (Pfizer) 08/31/2020,08/10/2020 Pneumococcal Conjugate Vacc, 13 Valent (Prevnar) 06/25/2017 Pneumococcal Conjugate Vacci ne, 20-valent ([id number]) 04/21/2024 Pneumococcal Polysaccharide PPV23 (Pneumovax) 01/22/2019 Seasonal [...] Sign Reading Time Taken Comments Blood Pressure 118/68 04/21/2024 8:58 AM EST Pulse 64 04/21/2024 8:58 AM EST Temperature - - Respiratory Rate - - Oxygen Saturation - - Inhaled Oxygen Concentration - - Weight - - Height - - Body Mass Index - - documented in this encounter Plan of Treatment Upcoming Encounters Date Type Department Care Team (Late st Contact Info) Description 11/18/2024 2:30 PM EDT Office Visit Family Medicine [address] [place] [phone] [address] [place] [address] Scheduled Procedures Name Priority Associated Diagnoses Date/Ti [...] Vaccine ( season) 2024 12/27/2021, 08/31/2020, 08/10/2020 GFR 08/20/2024 08/21/2023, 07/05, 03/09/2022, Additional history exists TSH 08/20/2024 08/21/2023, 07/04, 03/09/2022, Additional history exists Mammogram 08/26/2024 08/27/2023, 08/05, 07/12/2022, Additional history exists Albumin/Creatinine Ratio 02/26/2025 02/26/2022 O2 ASSESSMENT COMPLETED IN PAST YEAR FOR COPD 03/31/2025 03/31/2024 Diabetes Screening 08/20/2026 08/21/2023, 0 07/27/2022, 03/09/2022, Additional history exists Lipid Panel 07/14/2028 07/15/2023, 09/03, 07/12/2020, Additional history exists Colonoscopy 09/08/2030 09/08/2020, 09/08/2020 Colorectal Cancer Screening 09/08/2030 DXA Scan 07/31/2032 07/31/2022, 07/31/2022 Pap Smear Discontinued 02/10/2018, 12/2017, 06/13/2015 (Done elsewhere) Alpha-1 Antitrypsin Completed 08/09/2020 Zoster Vaccines Completed 11/22/2023, 08/23/2023 Influenza Vaccine (FLU shot) Completed 03/31/2024, 01/09/2023, 01/09/2023, Additional history exists Pneumococcal Vaccine: 65+ Years Completed 04/21/2024, 01/22/2019, 06/25/2017 HPV (Gardasil) [...] filedocumented as of this encounter Care Teams Assistant To The Dean Relationship Specialty Start Date End Date Liliane Pena DO [address] [place] [address] [place] [phone] PCP - General Internal Medicine 05/24/17 documented as of this encounter
--- OUTSIDE RECORDS SUMMARY | 2024-06-28 12:01 | External Medical Summary | Summary of Care ---
Author Name Unknown Organization [facility] Address [address] [facility] [place] [address] Phone [phone] Care Team Providers Care Auxiliary Powerplant Operator Name Role Phone Liliane Pena DO Primary Care Provider Reason for Visit * Reason Onset Date Comments Health Maintenance 05/07/2024 Encounter Details Date Type Department Care Team (Late st Contact Info) Description 05/07/2024 Telephone Family Medicine [address] [phone] Liliane Pena [address] [address] Health Maintenance Allergies Active Allergy Reactions Criticality Noted Date Comments Venlafaxine 08/22/2017 Excessive cough, throat tightness Indomethacin 08/23/2023 nightmares documented as of this encounter (statuses as of 05/07/2024) Medications Albuterol Sulfate (2.5 MG/3ML) 0.083% Inhalation [...] Sat-Sat as needed 60 g 2 09/19/19 Active [...] 04/01/2024 2:59 PM EST 03/31/20 24 Active documented as of this encounter (statuses as of 05/07/2024) Active Problems Problem Noted Date Diagnosed Date [...] as of this encounter (statuses as of 05/07/2024) Resolved Problems Problem Noted Date Diagnosed Date Resolved Date Swelling of both hands 11/24/202108/22 Heart murmur 07/12/2020 08/09/2020 Moderate episode of recurren t major depressive disorder 05/24/2017 01/26/2020 Alcohol consumption of more than two drinks per day 05/24/2017 08/23/2023 Tobacco use disorder 01/29/2017 021 documented as of this encounter (statuses as of 05/07/2024) Immunizations Name Administration Dates Next Due COVID-19 mRNA, LNP-s, No Pre serve, 2-Dose Series (Pfizer) 08/31/2020,08/10/2020 Pneumococcal Conjugate Vacc, 13 Valent (Prevnar) 06/25/2017 Pneumococcal Conjugate Vacci ne, 20-valent ([id number]) 04/21/2024 Pneumococcal Polysaccharide PPV23 (Pneumovax) 01/22/2019 Seasonal [...] encounter Miscellaneous Notes * Telephone Encounter - Annette Munguia LPN - 05/07/2024 12:29 PM EST Awv scheduled * Telephone Encounter - Annette Munguia LPN - 05/07/2024 10:20 AM EST Care Gaps Comprehensive Care Outreach Last Office/Telemedicine Visit: 03/31/2024 (in office), Visit date not found (telemedicine) Next Office Visit: 11/18/2024 Hemoglobin AIC Results: No results found for: "HEMOGLOBIN A1C" BP Readings from Last 1 Encounters: 04/21/24 118/68 Reviewed Health Maintenance below: Health Maintenance Topic Date Due DTap/Tdap Vaccines (1 - Tdap) Never done Depression Screening 10/04/2021 Adult Wellness Visit Never done COVID-19 Vaccine ( season) 2024 awv Care Gap Outreach Action Taken: Left message documented in this encounter Plan of Treatment Upcoming Encounters Date Type Department Care Team (Late st Contact Info) Description 05/26/2024 10:00 AM EST Nurse Only Ancillary [address] [place] [address] [place], Nurse [address] [place] [address] 11/18/2024 2:30 PM EDT Office Visit Family Medicine [address] [place] [phone] Liliane Pena, [address] [place] [address] Scheduled Procedures Name Priority Associated Diagnoses Date/Ti [...] FOR COPD 03/31/2025 03/31/2024 GFR 04/21/2025 04/21/2024, 0411/2023, 07/27/2022, Additional history exists TSH 04/21/2025 04/21/2024, 041 11/2023, 07/15/2023, Additional history exists Diabetes Screening 04/21/2027 [...] filedocumented as of this encounter Care Teams Auxiliary Powerplant Operator Relationship Specialty Start Date End Date Liliane Pena DO [address] [place] [address] [place] [address] PCP - General Internal Medicine 05/24/17 documented as of this encounter
--- OUTSIDE RECORDS SUMMARY | 2024-06-28 12:01 | External Medical Summary | Summary of Care ---
Author Name Unknown Organization [facility] [address] [facility] [address] Phone [phone] Care Team Providers Care Chemical Strength Tester Name Role Phone Liliane Pena DO Primary Care Provider Reason for Visit * Reason Onset Date Comments Fax 05/04/2024 Encounter Details Date Type Department Care Team (Late st Contact Info) Description 05/04/2024 Telephone [facility] Medicine [address] [phone] Liliane Pena [address] [address] Fax Allergies Active Allergy Reactions Criticality Noted Date Comments Venlafaxine 08/22/2017 Excessive cough, throat tightness Indomethacin 08/23/2023 nightmares documented as of this encounter (statuses as of 05/11/2024) Medications Albuterol Sulfate (2.5 MG/3ML) 0.083% Inhalation [...] )Indications:COPD, group B, by GOLD 2017 classification ([facility]) INHALE ONE PUFF BY MOUTH EVERY MORNING 180 Each 2 05/08/2024 12:20 PM EST 02/07/20 24 Active Losartan Potassium 25 MG Oral Tablet (Cozaar) Take 1 Tablet by mouth in the morning. 100 Tablet 3 04/01/2024 2:59 PM EST 03/31/20 24 Active documented as of this encounter (statuses as of 05/11/2024) Active Problems Problem Noted Date Diagnosed Date Hyperlipidemia with target LDL less than 100 11/ Gastroesophageal reflux disease without esophagi tis 03/31/2024 [...] 07/07 Overview (07/07/2020): Noted on imaging at [facility] 07/2020. Pulmonary nodule 07/07/2020 Overview (07/07/2020): KEITH, on imaging from [facility] 07/2020. Consider pulmonary referral. Hiatal hernia 06/19/2018 Overview (06/19/2018): Small. Per EGD 06/2018 Generalized osteoarthritis 05/24/2017 Acquired hypothyroidism 01/29/2017 Mixed dyslipidemia 01/29/2017 HTN, goal below 130/80 01/29/2017 documented as of this encounter (statuses as of 05/11/2024) Resolved Problems Problem Noted Date Diagnosed Date Resolved Date Swelling of both hands 11/24/202108/22 Heart murmur 07/12/2020 08/09/2020 Moderate episode of recurren t major depressive disorder 05/24/2017 01/26/2020 Alcohol consumption of more than two drinks per day 05/24/2017 08/23/2023 Tobacco use disorder 01/29/2017 021 documented as of this encounter (statuses as of 05/11/2024) Immunizations Name Administration Dates Next Due COVID-19 mRNA, LNP-s, No Pre serve, 2-Dose Series ([employer]) 08/31/2020,08/10/2020 Pneumococcal Conjugate Vacc, 13 Valent (Prevnar) 06/25/2017 Pneumococcal Conjugate Vacci ne, 20-valent ([id number]) 04/21/2024 Pneumococcal Polysaccharide PPV23 (Pneumovax) 01/22/2019 Seasonal [...] encounter Miscellaneous Notes * Telephone Encounter - Angelica Lynch RN - 05/11/2024 1:53 PM EST Pt has not had any MRI's since 2020, I will send that one * Telephone Encounter - Cristina Schroeedr OSA - 05/04/2024 7:57 AM EST Caller requesting the following information to be faxed: Name/Company of caller: [employer] Information requested to be faxed: xrays . Mris Fax number: [phone] Attention to Name/Company: [email or web address] Any additional information?: na documented in this encounter Plan of Treatment Upcoming Encounters Date Type Department Care Team (Late st Contact Info) Description 05/26/2024 10:00 AM EST Nurse Only Ancillary [address] [place] [address] [place], Nurse Annual [address] [place] [address] 11/18/2024 2:30 PM EDT Office Visit Family Medicine [address] [place] [phone] [address] [place] [address] Scheduled Procedures Name Priority Associated Diagnoses Date/Ti [...] filedocumented as of this encounter Care Teams Chemical Strength Tester Relationship Specialty Start Date End Date Liliane Pena DO [address] [place] [address] [place] [address] PCP - General Internal Medicine 05/24/17 documented as of this encounter
--- OUTSIDE RECORDS SUMMARY | 2024-06-28 12:01 | External Medical Summary | Summary of Care ---
Author Name Unknown Organization [facility] Address [address] [facility] [place] [address] Phone [phone] Care Team Providers Care Library Specialist Name Role Phone Liliane Pena DO Primary Care Provider Reason for Visit * Reason Onset Date Comments Health Maintenance 05/07/2024 Encounter Details Date Type Department Care Team (Late st Contact Info) Description 05/07/2024 Telephone Family Medicine [address] [phone] Liliane Pena [address] [address] Health Maintenance Allergies Active [...] (Prevnar) 06/25/2017 Pneumococcal Conjugate Vacci ne, 20-valent ([id number]) 04/21/2024 Pneumococcal Polysaccharide PPV23 (Pneumovax) 01/22/2019 Seasonal [...] 2:30 PM EDT Office Visit Family Medicine [address] [place] [phone] [place] [address] Scheduled Procedures Name Priority Associated Diagnoses Date/Ti [...] filedocumented as of this encounter Care Teams Library Specialist Relationship Specialty Start Date End Date Liliane Pena DO [address] [place] [address] [place] [phone] PCP - General Internal Medicine 05/24/17 documented as of this encounter
--- OUTSIDE RECORDS SUMMARY | 2024-06-28 12:01 | External Medical Summary | Summary of Care ---
Author Name Unknown Organization [facility] Address [address] [facility] [address] Phone [phone] Care Team Providers Care Delivery Room Clerk Name Role Phone Liliane Pena Primary Care Provider Reason for Visit * Reason Comments Outpatient Testing Encounter Details Date Type Department Care Team (Late st Contact Info) Description 04/21/2024 9:00 AM EST Laboratory Laboratory [address] [place] [phone] [place] [address] Acquired hypothyroidism; [employer] Other*[id number]; Joint swelling; HTN, goal below 130/80 Allergies Active Allergy Reactions Criticality Noted Date [...] B, by GOLD 2017 classification ([facility]) INHALE ONE PUFF BY MOUTH EVERY MORNING 180 Each 2 02/07/2024 4:02 PM EDT 02/07/20 24 025 Active Losartan Potassium 25 [...] 07/07 Overview (07/07/2020): Noted on imaging at [facility] 07/2020. Pulmonary nodule 07/07/2020 Overview (07/07/2020): KEITH, on imaging from [facility] 07/2020. Consider pulmonary referral. Hiatal hernia 06/19/2018 [...] (Prevnar) 06/25/2017 Pneumococcal Conjugate Vacci ne, 20-valent ([id number]) 04/21/2024 Pneumococcal Polysaccharide PPV23 (Pneumovax) 01/22/2019 Seasonal [...] 04/21/2024 9:20 AM EST Nurse Only Ancillary [address] [place] [address] [place], Nurse [address] [place] [address] Arrived 11/18/2024 2:30 PM EDT Office Visit Family Medicine [address] [place] [phone] Liliane Pena [address] [place] [address] Pending Results Name Type Priority Associated Diagnoses Date /Time TSH Lab Routine Acquired hypothyroidism 04/21/2024 8:42 AM EST MYCODE SUBSEQUENT ADULT Lab Routine [employer] Other*[id number] 04/21/2024 8:42 AM EST RHEUMATOID FACTOR Lab Routine Joint swelling 04/21/2024 8:42 AM EST CYCLIC CITRULLINATED PEPTIDE IGG ANTIBODY Lab Routine Joint swelling 04/21/2024 8:42 AM EST ERYTHROCYTE SEDIMENTATION RATE (ESR) Lab Routine Joint swelling 04/21/2024 8:42 AM EST BASIC METABOLIC PANEL Lab Routine HTN, goal below 130/80 04/21/2024 8:42 AM EST MYCODE SST1 Lab Routine [employer] Other*[id number] 04/21/2024 8:42 AM EST MYCODE SST2 Lab Routine [employer] Other*[id number] 04/21/2024 8:42 AM EST Scheduled Procedures Name Priority Associated [...] of this encounter Visit Diagnoses Diagnosis Acquired hypothyroidism Unspecified hypothyroidism [employer] Other*[id number] Joint swelling Effusion of joint, site unspecified HTN, goal below 130/80 Unspecified essential hypertension documented in this encounter Care Teams Delivery Room Clerk Relationship Specialty Start Date End Date Liliane Pena DO [address] [place] [address] [place] [phone] PCP - General Internal Medicine 05/24/17 documented as of this encounter
--- OUTSIDE RECORDS SUMMARY | 2024-06-28 12:01 | External Medical Summary | Summary of Care ---
Author Name Unknown Organization [facility] Address [address] [facility] [place] [address] Phone [phone] Care Team Providers Care Risk Compliance Analyst Name Role Phone Liliane Pena DO Primary Care Provider Reason for Visit * Reason Onset Date Comments Health Maintenance 05/07/2024 Encounter Details Date Type Department Care Team (Late st Contact Info) Description 05/07/2024 Telephone Family Medicine [address] [phone] Liliane Pena [address] [address] Health Maintenance Allergies Active [...] 07/07 Overview (07/07/2020): Noted on imaging at [facility] 07/2020. Pulmonary nodule 07/07/2020 Overview (07/07/2020): KEITH, on imaging from [facility] 07/2020. Consider pulmonary referral. Hiatal hernia 06/19/2018 [...] (Prevnar) 06/25/2017 Pneumococcal Conjugate Vacci ne, 20-valent ([id number]) 04/21/2024 Pneumococcal Polysaccharide PPV23 (Pneumovax) 01/22/2019 Seasonal [...] PM EDT Office Visit Family Medicine [address] [place] [phone] [place] [address] Scheduled Procedures Name Priority Associated Diagnoses Date/Ti [...] filedocumented as of this encounter Care Teams Risk Compliance Analyst Relationship Specialty Start Date End Date Liliane Pena DO [address] [place] [address] [place] [phone] PCP - General Internal Medicine 05/24/17 documented as of this encounter
--- OUTSIDE RECORDS SUMMARY | 2024-06-28 12:01 | External Medical Summary | Summary of Care ---
Author Name Unknown Organization [facility] Address [address] [facility] [place] [address] Phone [phone] Care Team Providers Care Plastics Production Machine Operator Name Role Phone Liliane Pena DO Primary Care Provider Reason for Visit * Reason Onset Date Comments Blood Pressure Check 04/21/2024 Encounter Details Date Type Department Care Team (Late st Contact Info) Description 04/21/2024 Telephone [facility] Medicine [address] [place] [phone] Liliane Pena [address] [phone] Blood Pressure Check Allergies Active Allergy Reactions Criticality Noted Date Comments Venlafaxine 08/22/2017 Excessive cough, throat tightness Indomethacin 08/23/2023 nightmares documented as of this encounter (statuses as of 04/26/2024) Medications Albuterol Sulfate (2.5 MG/3ML) 0.083% Inhalation [...] as of this encounter (statuses as of 04/26/2024) Active Problems Problem Noted Date Diagnosed Date [...] (07/07/2020): Noted on imaging at [facility] 07/2020. Pulmonary nodule 07/07/2020 Overview (07/07/2020): KEITH, on imaging from [facility] 07/2020. Consider pulmonary referral. Hiatal hernia 06/19/2018 Overview (06/19/2018): Small. Per EGD 06/2018 Generalized osteoarthritis 05/24/2017 Acquired hypothyroidism 01/29/2017 Mixed dyslipidemia 01/29/2017 HTN, goal below 130/80 01/29/2017 documented as of this encounter (statuses as of 04/26/2024) Resolved Problems Problem Noted Date Diagnosed Date Resolved Date Swelling of both hands 11/24/202108/22 Heart murmur 07/12/2020 08/09/2020 Moderate episode of recurren t major depressive disorder 05/24/2017 01/26/2020 Alcohol consumption of more than two drinks per day 05/24/2017 08/23/2023 Tobacco use disorder 01/29/2017 021 documented as of this encounter (statuses as of 04/26/2024) Immunizations Name Administration Dates Next Due COVID-19 mRNA, LNP-s, No Pre serve, 2-Dose Series (Pfizer) 08/31/2020,08/10/2020 Pneumococcal Conjugate Vacc, 13 Valent (Prevnar) 06/25/2017 Pneumococcal Conjugate Vacci ne, 20-valent ([id number]) 04/21/2024 Pneumococcal Polysaccharide PPV23 (Pneumovax) 01/22/2019 Seasonal [...] Encounter - Liliane Pena DO - 04/26/2024 9:08 PM EST Potassium slightly high. Limit intake of potassium rich foods. Will send letter with her test results. * Telephone Encounter - Liliane Pena DO - 04/21/2024 1:12 PM EST BP looks good. Await labs. * Telephone Encounter - Angelica Lynch RN - 04/21/2024 9:00 AM EST Pt presented for BP check 118/68, P 64. Pt states at her last visit she was stressed over shopping and traffic Patient also had labs today documented in this encounter Plan of Treatment Upcoming Encounters Date Type Department Care Team (Late st Contact Info) Description 11/18/2024 2:30 PM EDT Office Visit Family Medicine [address] [place] [phone] Liliane Pena DO [address] [place] [address] [place] [phone] Scheduled Procedures Name Priority Associated Diagnoses Date/Ti [...] 2024 12/27/2021, 08/31/2020, 08/10/2020 Mammogram 08/26/2024 08/27/2023, 04/07/2023, 07/12/2022, Additional history exists Albumin/Creatinine Ratio 02/26/2025 [...] filedocumented as of this encounter Care Teams Plastics Production Machine Operator Relationship Specialty Start Date End Date Liliane Pena DO [address] [place] [address] [place] [phone] PCP - General Internal Medicine 05/24/17 documented as of this encounter
--- OUTSIDE RECORDS SUMMARY | 2024-06-28 12:01 | External Medical Summary | Summary of Care ---
Author Name Unknown Organization [facility] Address [address] [facility] [place] [address] Phone [phone] Care Team Providers Care Food Service Aide Name Role Phone Pena, Lilianebekah Isaac Primary Care Provider Encounter Details Date Type Department Care Team (Late st Contact Info) Description 04/21/2024 9:20 AM EST Nurse Only Ancillary [address] [place] [phone] [place], Nurse [address] [place] [address] Arrived Allergies Active Allergy Reactions Criticality Noted [...] 07/07 Overview (07/07/2020): Noted on imaging at [facility] 07/2020. Pulmonary nodule 07/07/2020 Overview (07/07/2020): KEITH, on imaging from [facility] 07/2020. Consider pulmonary referral. Hiatal [...] (Prevnar) 06/25/2017 Pneumococcal Conjugate Vacci ne, 20-valent ([id number]) 04/21/2024 Pneumococcal Polysaccharide PPV23 (Pneumovax) 01/22/2019 Seasonal [...] 2:30 PM EDT Office Visit Family Medicine [address] [place] [phone] [place] [address] Scheduled Procedures Name Priority Associated Diagnoses Date/Ti [...] filedocumented as of this encounter Care Teams Food Service Aide Relationship Specialty Start Date End Date Liliane Pena DO [address] [place] [address] [place] [phone] PCP - General Internal Medicine 05/24/17 documented as of this encounter
--- OUTSIDE RECORDS SUMMARY | 2024-06-28 12:02 | External Medical Summary | Summary of Care ---
Author Name Unknown Organization [facility] Address [address] [place] [address] Phone [phone] Care Team Providers Care Upholstery Instructor Name Role Phone Liliane Pena Primary Care Provider Encounter Details Date Type Department Care Team (Late st Contact Info) Description 12/03/2023 Telephone Plastic Surgery, [place] [address] [place] [address] Services, Scheduling [address] [place] [address] Allergies Active Allergy Reactions Criticality Noted Date Comments Venlafaxine 08/22/2017 Excessive cough, throat tightness Indomethacin 08/23/2023 nightmares documented as of this encounter (statuses as of 03/03/2024) Medications Medication Sig Dispensed Refills Start Date End Date Status Albuterol Sulfate (2.5 MG/3ML) 0.083% Inhalation Nebulization Solution (Proventil)Indicati ons:Pulmonary emphysema, unspecified emphysema type (HCC) Inhale 1 Vial via nebulizer every 4 hours as needed for Wheezing. 90 mL 2 07/12/2020 Active Losartan Potassium 25 MG Oral Tablet (Cozaar) Take 1 Tablet (25 mg) by mouth in the morning. 100 Tablet 3 04/20/2022 Active Diclofenac Sodium 1 % External Gel (Voltaren) APPLY TO NECK TWO TIMES A DAY NEEDED FOR PAIN 100 g 3 06/03/2023 06/02/2024 Active Metoprolol Succinate ER 50 MG Oral Tablet Extended Release 24 Hour (toPROL XL)Indications:HTN, goal below 130/80,Tachycardia TAKE ONE TABLET BY MOUTH EVERY MORNING 100 Tablet 3 06/11/2023 06/10/2024 Active Additional Information Patient not taking.Reported on 12/02/2023 Albuterol Sulfate HFA 108 (90 Base) MCG/ACT Inhalation Aerosol Solution INHALE TWO PUFFS BY MOUTH EVERY 6 HOURS NEEDED FOR COUGH, SHORTNESS OF BREATH, WHEEZING, OR DYSPNEA 54 g 1 06/17/2023 Active Pantoprazole Sodium 20 MG Oral Tablet Delayed Release (Protonix)Indicatio ns:Hiatal hernia TAKE ONE TABLET BY MOUTH EVERY MORNING 30 MINUTES BEFORE THE FIRST MEAL OF THE DAY. DO NOT CRUSH, CUT OR CHEW 100 Tablet 3 07/16/2023 07/15/2024 Active Zoster Vac Recomb Adjuvanted 50 MCG/0.5ML Intramuscular Suspension Reconstituted (Shingrix)Indicatio ns:Need for shingles vaccine Inject 0.5 mL into a large muscle now and repeat dose in 60 to 180 days 1 Each 1 08/23/2023 Active Clobetasol Propionate 0.05 % External Ointment (Temovate)Indicatio ns:Rash and nonspecific skin eruption Apply twice daily to lower legs up to 2 weeks, then taper to weekends only Sat-Sat as needed 60 g 2 09/19/2023 Active Additional Information Patient not taking.Reported on 12/02/2023 Cyclobenzaprine HCl 5 MG Oral Tablet (Flexeril) Take 1 Tablet by mouth in the morning and 1 Tablet at noon and 1 Tablet before bedtime. Active Cephalexin 500 MG Oral Capsule (Keflex) Take 1 Capsule by mouth in the morning and 1 Capsule before bedtime. 10/02/2023 Active Atorvastatin Calcium 40 MG Oral Tablet (Lipitor) TAKE ONE TABLET BY MOUTH IN THE MORNING. 100 Tablet 2 11/20/2023 Active Zoster Vac Recomb Adjuvanted 50 MCG/0.5ML Intramuscular Suspension Reconstituted (Shingrix) Inject 0.5 mL into a large muscle now and repeat dose in 60 to 180 days 1 Each 1 11/22/2023 Active documented as of this encounter (statuses as of 03/03/2024) Active Problems Problem Noted Date Diagnosed Date Stenosis of left subclavian artery 11/27/2021 Overview: All blood pressures in right arm. Bruit 11/25/2021 Overview: ?subclavian artery Centrilobular emphysema 08/18/2021 Hepatic steatosis 01/24/2021 Adenoma of left adrenal gland 01/24/2021 Overview: 1.[address] SANDRA (obstructive sleep apnea) 01/03/2021 Uncomplicated alcohol dependence 08/04/2020 Tachycardia 07/12/2020 COPD, group B, by GOLD 2017 classification 07/07 Overview: Noted on imaging at [facility] 07/2020. Pulmonary nodule 07/07/2020 Overview: KEITH, on imaging from [facility] 07/2020. Consider pulmonary referral. Hiatal hernia 06/19/2018 Overview: Small. Per EGD 06/2018 Generalized osteoarthritis 05/24/2017 Acquired hypothyroidism 01/29/2017 Mixed dyslipidemia 01/29/2017 HTN, goal below 130/80 01/29/2017 documented as of this encounter (statuses as of 03/03/2024) Resolved Problems Problem Noted Date Diagnosed Date Resolved Date Swelling of both hands 11/24/202108/22 Heart murmur 07/12/2020 08/09/2020 Moderate episode of recurren t major depressive disorder 05/24/2017 01/26/2020 Alcohol consumption of more than two drinks per day 05/24/2017 08/23/2023 Tobacco use disorder 01/29/2017 021 documented as of this encounter (statuses as of 03/03/2024) Immunizations Name Administration Dates Next Due COVID-19 mRNA, LNP-s, No Pre serve, 2-Dose Series (Pfizer) 08/31/2020,08/10/2020 Pneumococcal Conjugate Vacc, 13 Valent (Prevnar) 06/25/2017 Pneumococcal Polysaccharide PPV23 (Pneumovax) 01/22/2019 Seasonal Influenza, PF, 6 M & above, [...] money to get more. Never true 09/09/2020 Utilities Answer Date Recorded Do you have trouble paying y our heating, water, or electric bill? (Adult - for ages 18 years and over) Not on file 10/22/2023 Is your family able to pay t he heat, water, or electric bill? (Household - for ages 0-17 years) Not on file 10/22/2023 Does your family have access to good internet? (Household - for ages 0-17 years) Not on file 10/22/2023 Social Connections Answer Date Recorded How often do you feel lonely or isolated from those around you? (Adult - for ages 18 years and over) Not on file 10/22/2023 Sex and Gender Information Value Date Recorded Sex Assigned at Not on file Gender Identity Not on file Sexual Orientation Not on file Job Start Date Occupation Industry Not on file Not on file Not on file documented as of this encounter Miscellaneous Notes * Telephone Encounter - Roseann Phillips OSA - 12/03/2023 3:19 PM EDT Pt returning your call to set up her next appt. Please advise, thank you. documented in this encounter Plan of Treatment Upcoming Encounters Date Type Department Care Team (Late st Contact Info) Description 03/31/2024 3:10 PM EST Office Visit Family Medicine [address] [place] [phone] [place] [address] Scheduled Procedures Name Priority Associated Diagnoses Date/Ti [...] Vaccine ( season) 2024 12/27/2021, 08/31/2020, 08/10/2020 Influenza Vaccine (FLU shot) (#1) 2024 01/09/2023, 01/09/2023, 01/04/2022, Additional history exists Pneumococcal Vaccine: 65+ Years (3 of 3 - PPSV23 or PCV20) 01/23/2024 01/22/2019, 06/25/2017 GFR 08/20/2024 08/21/2023, 07/05, 03/09/2022, Additional history exists TSH 08/20/2024 08/21/2023, 07/04, 03/09/2022, Additional history exists Mammogram 08/26/2024 08/27/2023, 08/05, 07/12/2022, Additional history exists O2 ASSESSMENT COMPLETED IN PAST YEAR FOR COPD 10/06/2024 10/07/2023 Albumin/Creatinine Ratio 02/26/2025 02/26/2022 Diabetes Screening 08/20/2026 08/21/2023, 0 07/27/2022, 03/09/2022, Additional history exists Lipid Panel 07/14/2028 07/15/2023, 09/03, 07/12/2020, Additional history exists Colonoscopy 09/08/2030 09/08/2020, 09/08/2020 Colorectal Cancer Screening 09/08/2030 DXA Scan 07/31/2032 07/31/2022, 07/31/2022 Pap Smear Discontinued 02/10/2018, 12/2017, 06/13/2015 (Done elsewhere) Alpha-1 Antitrypsin Completed 08/09/2020 Zoster Vaccines Completed 11/22/2023, 08/23/2023 HPV (Gardasil) Vaccine Aged Out No lo [...] filedocumented as of this encounter Care Teams Upholstery Instructor Relationship Specialty Start Date End Date Liliane Pena DO [address] [place] [address] [place] [phone] PCP - General Internal Medicine 05/24/17 documented as of this encounter
--- OUTSIDE RECORDS SUMMARY | 2024-06-28 12:02 | External Medical Summary | Summary of Care ---
Author Name Unknown Organization [facility] Address [address] [place] [address] Phone [phone] Care Team Providers Care Trade Mark Attorney Name Role Phone Cipriano To DO Primary Care Provider Reason for Visit * Reason Comments Medication Refill Encounter Details Date Type Department Care Team (Late st Contact Info) Description 01/25/2024 Refill Family Medicine [address] [phone] Cipriano To [address] [address] Allergies Active Allergy Reactions Criticality Noted Date Comments Venlafaxine 08/22/2017 Excessive cough, throat tightness Indomethacin 08/23/2023 nightmares documented as of this encounter (statuses as of 01/27/2024) Medications Medication Sig Dispensed Refills Start Date [...] the morning. 100 Tablet 3 04/20/2022 Active Trelegy Ellipta 100-62.5-25 MCG/ACT Aerosol Powder Breath Activated (Fluticasone-Umecli dinium-Vilanterol)I ndications:COPD, group B, by GOLD 2017 classification (HCC) INHALE ONE PUFF BY MOUTH EVERY MORNING 180 Each 2 05/13/2023 5 Active Diclofenac Sodium 1 % External Gel (Voltaren) APPLY TO NECK TWO TIMES A DAY NEEDED FOR PAIN 100 g 3 06/03/2023 5 Active Metoprolol Succinate ER 50 MG Oral Tablet Extended Release 24 Hour (toPROL XL)Indications:HTN, goal below 130/80,Tachycardia TAKE ONE TABLET BY MOUTH EVERY MORNING 100 Tablet 3 06/11/2023 5 Active Additional Information Patient not taking.Reported on [...] CUT OR CHEW 100 Tablet 3 07/16/2023 5 Active Zoster Vac Recomb Adjuvanted 50 MCG/0.5ML Intramuscular Suspension Reconstituted (Shingrix)Indicatio ns:Need for shingles vaccine Inject 0.5 mL into a large muscle now and repeat dose in 60 to 180 days 1 Each 1 08/23/2023 Active Clobetasol Propionate 0.05 % External Ointment (Temovate)Indicatio ns:Rash and nonspecific skin eruption Apply twice daily to lower legs up to 2 weeks, then taper to weekends only Fri-Sun as needed 60 g 2 09/19/2023 Active [...] 180 days 1 Each 1 11/22/2023 Active Levothyroxine Sodium 88 MCG Oral Tablet (Levoxyl) Take 1 Tablet by mouth in the morning. (at least 30 min prior to breakfast or other meds). 100 Tablet 1 01/27/2024 Active Levothyroxine Sodium 88 MCG Oral Tablet (Levoxyl) Take 1 Tablet by mouth in the morning. (at least 30 min prior to breakfast or other meds). 100 Tablet 1 07/16/2023 4 Discontinu ed(Refill) documented as of this encounter (statuses as of 01/27/2024) Active Problems Problem Noted Date Diagnosed Date [...] classification 07/07 Overview: Noted on imaging at [facility] 07/2020. Pulmonary nodule 07/07/2020 Overview: KEITH, on imaging from [facility] 07/2020. Consider pulmonary referral. Hiatal hernia 06/19/2018 Overview: Small. Per EGD 06/2018 Generalized osteoarthritis 05/24/2017 Acquired hypothyroidism 01/29/2017 Mixed dyslipidemia 01/29/2017 HTN, goal below 130/80 01/29/2017 documented as of this encounter (statuses as of 01/27/2024) Resolved Problems Problem Noted Date Diagnosed Date Resolved Date Swelling of both hands 11/24/202108/22 Heart murmur 07/12/2020 08/09/2020 Moderate episode of recurren t major depressive disorder 05/24/2017 01/26/2020 Alcohol consumption of more than two drinks per day 05/24/2017 08/23/2023 Tobacco use disorder 01/29/2017 021 documented as of this encounter (statuses as of 01/27/2024) Immunizations Name Administration Dates Next Due COVID-19 [...] encounter Miscellaneous Notes * Telephone Encounter - Amina Kendrick [facility] - 01/27/2024 6:13 AM EDTSigned Prescriptions: Disp Refills Levothyroxine Sodium 88 MCG Oral Tablet (L*100 Ta*1 Sig: Take 1 Tablet by mouth in the morning. (at least 30 min prior to breakfast or other meds).Authorizing Provider: CIPRIANO TOOrderdamion User: AMINA KENDRICK documented in this encounter Plan of Treatment Upcoming Encounters Date Type Department Care Team (Late st Contact Info) Description 02/04/2024 2:00 PM EDT Telemedicine Plastic Surgery, [place] [address] [place] [address] Carlie Ortiz PA-C [address] [place] [address] 03/31/2024 3:10 PM EST Office Visit Family Medicine [address] [phone] Cipriano To [address] [place] [address] Scheduled Procedures Name Priority Associated Diagnoses Date/Ti [...] 07/31/2032 07/31/2022, 07/31/2022 Pap Smear Discontinued 02/10/2018, 2018, 06/13/2015 (Done elsewhere) Alpha-1 Antitrypsin Completed 08/09/2020 [...] filedocumented as of this encounter Care Teams Trade Mark Attorney Relationship Specialty Start Date End Date Cipriano To DO [address] [place] [address] [place] [phone] PCP - General Internal Medicine 05/24/17 documented as of this encounter
--- OUTSIDE RECORDS SUMMARY | 2024-06-28 12:02 | External Medical Summary ---
Author Name Unknown Address Unknown Organization [id number][place] [place] [address] [facility] [address] [place] [address] Laboratory Report Ordering Provider Test Date Status ZULEIKA COTA 04/21/2024 08:42:08 Final Observation Date Value Abnormality Reference (Units ) Status BUN 04/21/2024 08:42:08 21 Above high normal 6-20 (mg/dL) Final Creatinine 04/21/2024 08:42:08 0.7 0.5-1.0 (mg/dL) Final Glomerular filtration rate/1.73 sq M.predicted [Volume Rate/Area] in Serum, Plasma or Blood by Creatinine-based formula (CKD-EPI) 04/21/2024 08:42:08 >90 >=60 (mL/min) Final eGFR is calculated based on the CKD-EPI 2020 equation. Sodium 04/21/2024 08:42:08 138 135-146 (m mol/L) Final Potassium 04/21/2024 08:42:08 5.3 Above high normal 3. 5-5.1 (mmol/L) Final Cl 04/21/2024 08:42:08 102 98-107 (mm ol/L) Final CO2 04/21/2024 08:42:08 25 22-32 (mmo l/L) Final Anion gap 04/21/2024 08:42:08 11 7-15 (mmol /L) Final Glucose 04/21/2024 08:42:08 100 70-120 (mg /dL) Final Calcium 04/21/2024 08:42:08 10.0 8.4-10.2 ( mg/dL) Final Performing Location [facility] [place] [address] [place] [address]
--- OUTSIDE RECORDS SUMMARY | 2024-06-28 12:02 | External Medical Summary ---
Author Name Unknown Address Unknown Organization [id number]:[facility]ORY [facility] [place] - [address] [place] [address] Laboratory Report Ordering Provider Test Date Status CIPRIANOTO 04/21/2024 08:42:08 Final Observation Date Value Abnormality Reference (Units ) Status Rheumatoid Factor 04/21/2024 08:42:08 <10 <1 4 (IU/mL) Final Performing Location LABORATORY [facility] - [address] [place] [address]
--- OUTSIDE RECORDS SUMMARY | 2024-06-28 12:02 | External Medical Summary | Summary of Care ---
Author Name Unknown Organization [facility] Address [address] [facility] [address] Phone [phone] Care Team Providers Care Medical Laboratory Technician Name Role Phone Liliane Pena DO Primary Care Provider Reason for Referral * Evaluate & Treat - Unlimited Visits (Within 10 days (routine)) - Authorized Specialty Diagnoses / Procedures Referred By Trice becerra Referred To Contact Pain Management / Pain Medicine Diagnoses Inflammation of sacroiliac joint (HCC) Liliane Pena DO [address] [place] [address] [place] [address] Phone: tel: fax: Referral ID Status Reason Start Date Expiration Date Visits Requested Visits Authorized [id number] Authorized Specialty Services Required 4 [phone] Question Answer Referral Priority Within 10 days (routine) Where should this appointment be scheduled? [facility] Reason for referral? Interventional Pain Management - (Injection) What condition is the patient being referred for? Other Conditions What is the preferred location to have this test performed? [facility] Comments Patient Name: Elif Weinstein Date of : 1955 Department Phone Number: MRI or CT (if unable to have a MRI) is recommended if any of the following apply: 1. Patient has neck or back pain with radiation to extremities. A previous MRI will be accepted if symptoms unchanged since prior MRI. 2. Spinal surgery since last MRI. If yes, order a MRI with and without contrast. 3. Hx or ongoing cancer treatment. Patient will need spine x-ray (Ap/Lat) for axial neck or back pain if not done previously. Fax No. [facility] [phone] or contact director of front office [phone] Fax No. [facility] [phone] or contact director of front office [phone] Fax No. [facility] [phone] or contact director of front office [phone] Reason for Visit * Reason Onset Date Comments Re-Check Pt denies any co ncerns. Medication Administration 03/31/2024 Flu an d/or Pneumo Inj Encounter Details Date Type Department Care Team (Latest Contact Info) Description 03/31/2024 3:10 PM EST Office Visit Family Medicine [address] [place] [address] Liliane Pena DO [address] [place] [address] [place] [address] COPD, group B, by GOLD 2017 classification ([facility])*; Need for prophylactic vaccination and inoculation against influenza; Acquired hypothyroidism; HTN, goal below 130/80; Hyperlipidemia with target LDL less than 100; Inflammation of sacroiliac joint (HCC); Chronic pain of both shoulders; Joint swelling; Stenosis of left subclavian artery ([facility]) Allergies Active Allergy Reactions Criticality Noted Date Comments Venlafaxine 08/22/2017 Excessive cough, throat tightness Indomethacin 08/23/2023 nightmares documented as of this encounter (statuses as of 03/31/2024) Medications Albuterol Sulfate (2.5 MG/3ML) 0.083% Inhalation Nebulization Solution (Proventil)Indica tions:Pulmonary emphysema, unspecified emphysema type (HCC) Inhale 1 Vial via nebulizer every 4 hours as needed for Wheezing. 90 mL 2 021 Active Diclofenac Sodium 1 % External Gel (Voltaren) APPLY TO NECK TWO TIMES A DAY NEEDED FOR PAIN 100 g 3 07/04/19 24 3:34 PM EST 024 2024 Active Metoprolol Succinate ER 50 MG Oral Tablet Extended Release 24 Hour (toPROL XL)Indications:HT N, goal below 130/80,Tachycardi a TAKE ONE TABLET BY MOUTH EVERY MORNING 100 Tablet 3 12/26/19 24 7:44 AM EDT 024 2024 Active Additional Information Patient not taking.Reported on 03/31/2024 Albuterol Sulfate HFA 108 (90 Base) MCG/ACT Inhalation Aerosol Solution INHALE TWO PUFFS BY MOUTH EVERY 6 HOURS NEEDED FOR COUGH, SHORTNESS OF BREATH, WHEEZING, OR DYSPNEA 54 g 1 06/19/19 24 1:26 PM EST Active Pantoprazole Sodium 20 MG Oral Tablet Delayed Release (Protonix)Indicat ions:Hiatal hernia TAKE ONE TABLET BY MOUTH EVERY MORNING 30 MINUTES BEFORE THE FIRST MEAL OF THE DAY. DO NOT CRUSH, CUT OR CHEW 100 Tablet 3 01/28/20 24 10:42 AM EDT 024 2024 Active Clobetasol Propionate 0.05 % External Ointment (Temovate)Indicat ions:Rash and nonspecific skin eruption Apply twice daily to lower legs up to 2 weeks, then taper to weekends only Sat-Sat as needed 60 g 2 Active Additional Information Patient not taking.Reported on 03/31/2024 Atorvastatin Calcium 40 MG Oral Tablet (Lipitor) TAKE ONE TABLET BY MOUTH IN THE MORNING. 100 Tablet 2 02/29/20 24 10:44 AM EDT Active Levothyroxine Sodium 88 MCG Oral Tablet (Levoxyl) take 1 tablet by mouth in the morning at least 30 min prior to breakfast or other meds 100 Tablet 1 01/27/20 24 4:04 PM EDT Active Trelegy Ellipta 100-62.5-25 MCG/ACT Aerosol Powder Breath Activated (Fluticasone-Umec lidinium-Vilanter ol)Indications:CO PD, group B, by GOLD 2017 classification (HCC) INHALE ONE PUFF BY MOUTH EVERY MORNING 180 Each 2 02/07/20 24 4:02 PM EDT 024 2024 Active Losartan Potassium 25 MG Oral Tablet (Cozaar) Take 1 Tablet by mouth in the morning. 100 Tablet 3 Active Losartan Potassium 25 MG Oral Tablet (Cozaar) Take 1 Tablet (25 mg) by mouth in the morning. 100 Tablet 3 022 2023 Discontinued(R efill) Zoster Vac Recomb Adjuvanted 50 MCG/0.5ML Intramuscular Suspension Reconstituted (Shingrix)Indicat ions:Need for shingles vaccine Inject 0.5 mL into a large muscle now and repeat dose in 60 to 180 days 1 Each 1 08/23/19 24 12:23 PM EDT 024 2023 Discontinued Cyclobenzaprine HCl 5 MG Oral Tablet (Flexeril) Take 1 Tablet by mouth in the morning and 1 Tablet at noon and 1 Tablet before bedtime. 2023 Discontinued Cephalexin 500 MG Oral Capsule (Keflex) Take 1 Capsule by mouth in the morning and 1 Capsule before bedtime. 024 2023 Discontinued Zoster Vac Recomb Adjuvanted 50 MCG/0.5ML Intramuscular Suspension Reconstituted (Shingrix) Inject 0.5 mL into a large muscle now and repeat dose in 60 to 180 days 1 Each 1 11/22/19 24 10:40 AM EDT 024 2023 Discontinued documented as of this encounter (statuses as of 03/31/2024) Active Problems Problem Noted Date Diagnosed Date [...] 07/07 Overview (07/07/2020): Noted on imaging at [facility] 07/2020. Pulmonary nodule 07/07/2020 Overview (07/07/2020): KEITH, on imaging from [facility] 07/2020. Consider pulmonary referral. Hiatal hernia 06/19/2018 Overview (06/19/2018): Small. Per EGD 06/2018 Generalized osteoarthritis 05/24/2017 Acquired hypothyroidism 01/29/2017 Mixed dyslipidemia 01/29/2017 HTN, goal below 130/80 01/29/2017 documented as of this encounter (statuses as of 03/31/2024) Resolved Problems Problem Noted Date Diagnosed Date Resolved Date Swelling of both hands 11/24/202108/22 Heart murmur 07/12/2020 08/09/2020 Moderate episode of recurren t major depressive disorder 05/24/2017 01/26/2020 Alcohol consumption of more than two drinks per day 05/24/2017 08/23/2023 Tobacco use disorder 01/29/2017 021 documented as of this encounter (statuses as of 03/31/2024) Immunizations Name Administration Dates Next Due COVID-19 mRNA, LNP-s, No Pre serve, 2-Dose Series ([employer]) 08/31/2020,08/10/2020 Pneumococcal Conjugate Vacc, 13 Valent (Prevnar) 06/25/2017 Pneumococcal Polysaccharide PPV23 (Pneumovax) 01/22/2019 Seasonal Influenza [...] Sign Reading Time Taken Comments Blood Pressure 158/80 03/31/2024 3:17 PM EST Pulse 84 03/31/2024 3:17 PM EST Temperature 36.5 C (97.7 F) 03/31/2024 3:17 PM ES T Respiratory Rate - - Oxygen Saturation 94% 03/31/2024 3:17 PM EST Inhaled Oxygen Concentration - - Weight 69.3 kg (152 lb 12.8 oz) 03/31/2024 3:17 PM EST Height - - Body Mass Index 26.64 12/02/2023 2:32 PM EDT documented in this encounter Patient Instructions * Patient Instructions* Liliane Pena, - 03/31/2024 3:56 PM EST Start aspirin 81 mg daily. I recommend that you get your RSV vaccine at the pharmacy prior to winter. documented in this encounter Progress Notes * Liliane Pena DO - 03/31/2024 3:22 PM EST Subjective: lEif Weinstein is a 69 year old female. Chief Complaint Patient presents with Re-Check Pt denies any concerns. Medication Administration Flu and/or Pneumo Inj HPI: Elif Weinstein presents today for routine follow up. She has no concerns today. Arthritis pain is worse with the weather changing and she is noticing it more in both shoulders. Itdoesn't bother her during the day but it will wake her up at night. She also has pain over her right SI joint. Also bothers her the most at bedtime. She is using diclofenac daily on her neck with good relief of her pain. She is taking her medicine as prescribed. BP is high here today. She was rushing around a lot prior to her appointment. She has been taking her metoprolol but she has not taken her losartan in some time. Breathing is good on Trelegy. Has used her rescue inhaler maybe once in the past 6 months. She got her flu shot today. She plans on getting her RSV shot as well. She believes she got her pneumonia shot here in the office last year - but she believes there was a patient with the same name as her in the office as well and wonders if it might be charted in the wrong chart. She continues to drink 6-8 beers per day. She is not particularly interested in stopping at this time. Buys a 30-pack per week. PMH: Patient Active Problem List Diagnosis Acquired hypothyroidism Mixed dyslipidemia HTN, goal below 130/80 Generalized osteoarthritis Hiatal hernia COPD, group B, by GOLD 2017 classification (HCC) Pulmonary nodule Tachycardia Uncomplicated alcohol dependence (HCC) SANDRA (obstructive sleep apnea) Hepatic steatosis Adenoma of left adrenal gland Centrilobular emphysema (HCC) Bruit Stenosis of left subclavian artery (HCC) Current Outpatient Medications Medication Sig Dispense Refill Albuterol Sulfate (2.5 MG/3ML) 0.083% Inhalation Nebulization Solution (Proventil) Inhale 1 Vial via nebulizer every 4 hours as needed for Wheezing. 90 mL 2 Losartan Potassium 25 MG Oral Tablet (Cozaar) Take 1 Tablet (25 mg) by mouth in the morning. 100 Tablet 3 Diclofenac Sodium 1 % External Gel (Voltaren) APPLY TO NECK TWO TIMES A DAY NEEDED FOR PAIN 100 g 3 Metoprolol Succinate ER 50 MG Oral Tablet Extended Release 24 Hour (toPROL XL) TAKE ONE TABLET BY MOUTH EVERY MORNING (Patient not taking: Reported on 03/31/2024) 100 Tablet 3 Albuterol Sulfate HFA 108 [...] CRUSH, CUT OR CHEW 100 Tablet 3 Zoster Vac Recomb Adjuvanted 50 MCG/0.5ML Intramuscular Suspension Reconstituted (Shingrix) Inject 0.5 mL into a large muscle now and repeat dose in 60 to 180 days 1 Each 1 Clobetasol Propionate 0.05 % External Ointment (Temovate) Apply twice daily to lower legs up to 2 weeks, then taper to weekends only Sat-Sat as needed (Patient not taking: Reported on 03/31/2024) 60 g 2 Cyclobenzaprine HCl 5 MG Oral Tablet (Flexeril) Take 1 Tablet by mouth in the morning and 1 Tablet at noon and 1 Tablet before bedtime. (Patient not taking: Reported on 03/31/2024) Cephalexin 500 MG Oral Capsule (Keflex) Take 1 Capsule by mouth in the morning and 1 Capsule beforebedtime. (Patient not taking: Reported on 03/31/2024) Atorvastatin Calcium 40 MG Oral Tablet (Lipitor) TAKE ONE TABLET BY MOUTH IN THE MORNING. 100 Tablet 2 Zoster Vac Recomb Adjuvanted 50 MCG/0.5ML Intramuscular Suspension Reconstituted (Shingrix) Inject 0.5 mL into a large muscle now and repeat dose in 60 to 180 days 1 Each 1 Levothyroxine Sodium 88 MCG Oral Tablet (Levoxyl) take 1 tablet by mouth in the morning at least 30min prior to breakfast or other meds 100 Tablet 1 Trelegy Ellipta 100-62.5-25 MCG/ACT Aerosol Powder Breath Activated (Dzamwqrgovc-Vzsmshvkoxwd-Odldexcpuc) INHALE ONE PUFF BY MOUTH EVERY MORNING 180 Each 2 No current facility-administered medications for this visit. Review of patient's allergies indicates: Allergen Reactions Effexor [Venlafaxine] Excessive cough, throat tightness Indomethacin nightmares Objective: BP 158/80 | Pulse 84 | Temp 97.7 F (36.5 C) | Wt 152 lb 12.8 oz (69.3 kg) | SpO2 94% | BMI 26.64 kg/m | BSA 1.76 m General: alert, healthy, no distress, well nourished, and well developed Neck: supple, no adenopathy, thyroid normal size, non-tender, without nodularity Heart: regular rate & rhythm and no murmur Lungs: chest symmetric with normal AP diameter, no chest deformities noted, normal respiratory rateand rhythm, lungs clear to auscultation Abdomen: abdomen soft and non-tender Extremities: no joint deformities, effusion, or inflammation, no edema Neuro Exam: alert & oriented x 3 with fluent speech, no focal motor/sensory deficits, gait normal Skin: skin color, texture, turgor are normal, no rashes or significant lesions ASSESSMENT/PLAN: COPD, group B, by GOLD 2017 classification (HCC) (Primary) - breathing is good on Trelegy. Continue. Need for prophylactic vaccination and inoculation against influenza - INFLUENZA VAC., TRIVALENT, HD, PF, 65 AND ABOVE, 0.5 ML IM (FLUZONE HD) Acquired hypothyroidism - continue levothyroxine. HTN, goal below 130/80 - high here today. Continue metoprolol and add losartan. - BASIC METABOLIC PANEL; Future; Expected date: 04/21/2024 Hyperlipidemia with target LDL less than 100 - continue atorvastatin. Inflammation of sacroiliac joint (HCC) - PAIN MEDICINE REFERRAL OP Chronic pain of both shoulders - check plain films. Discussed trying diclofenac gel. If no responsecan get her set up for injections pending her x-rays results. - XR SHOULDER, 2 OR MORE VIEWS Joint swelling - RHEUMATOID FACTOR; Future; Expected date: 03/31/2024 - CYCLIC CITRULLINATED PEPTIDE IGG ANTIBODY; Future; Expected date: 03/31/2024 - ERYTHROCYTE SEDIMENTATION RATE (ESR); Future; Expected date: 03/31/2024 Stenosis of left subclavian artery (HCC) - auscultated on exam today. She does get some numbness/tingling into the left arm but radial pulse is palpable on exam today and fingers are warm. Other orders - Losartan Potassium 25 MG Oral Tablet (Cozaar); Take 1 Tablet by mouth in the morning. Follow-up: Return in about 6 months (around 09/28/2024). | Check-out note: Labs in 3 weeks. Nurse visit the same day to recheck BP and get pneumonia shot. X- rays today. Liliane Pena DO documented in this encounter Plan of Treatment Upcoming Encounters Date Type Department Care Team (Late st Contact Info) Description 04/21/2024 9:00 AM EST Laboratory Laboratory [address] [place] [phone] [place] [facility] [address] [place] [address] 04/21/2024 9:20 AM EST Nurse Only Ancillary [address] [place] [address] [place], Nurse [address] [place] [address] 11/18/2024 2:30 PM EDT Office Visit Family Medicine [address] [place] [phone] Liliane ePna DO [address] [place] [address] [place] [address] Scheduled Orders Name Type Priority Associated Diagnoses Orde r Schedule XR SHOULDER, 2 OR MORE VIEWS Medical Imaging Routine Chronic pain of both shoulders Ordered: 03/31/2024 RHEUMATOID FACTOR Lab Routine Joint swelling Expected: 03/31/2024 (Approximate), Expires: 03/31/2025 CYCLIC CITRULLINATED PEPTIDE IGG ANTIBODY Lab Routine Joint swelling Expected: 03/31/2024, Expires: 03/31/2025 ERYTHROCYTE SEDIMENTATION RATE (ESR) Lab Routine Joint swelling Expected: 03/31/2024 (Approximate), Expires: 03/31/2025 BASIC METABOLIC PANEL Lab Routine HTN, goal below 130/80 Expected: 04/21/2024 (Approximate), Expires: 03/31/2025 Scheduled Procedures Name Priority Associated Diagnoses Date/Ti me ESOPHAGOGASTRODUODENOSCOPY ( EGD), FLEXIBLE, TRANSORAL, DIAGNOSTIC Recall Snider esophagus COLONOSCOPY FLEXIBLE PROXIMAL DIAGNOSTIC Recall History of colon polyps Scheduled Referrals Name Type Priority Associated Diagnoses Orde r Schedule PAIN MEDICINE REFERRAL OP Referral Within 10 days (routine) Inflammation of sacroiliac joint (HCC) Ordered: 03/31/2024 Health Maintenance Due Date Last Done Comments DTap/Tdap Vaccines (1 - Tdap) 02/12/1976 Fecal Occult Blood Test 2002 Sigmoidoscopy 2002 Depression Screening 10/04/2021 10/04/2020 Adult Wellness Visit 2023 Cologuard 07/29/2023 07/28/2020 COVID-19 Vaccine ( season) 2024 12/27/2021, 08/31/2020, 08/10/2020 Pneumococcal Vaccine: 65+ Years (3 of 3 [...] Completed 03/31/2024, 01/09/2023, 01/09/2023, Additional history exists HPV (Gardasil) Vaccine Aged Out No lo [...] as of this encounter Visit Diagnoses Diagnosis COPD, group B, by GOLD 2017 classification ([facility])- Primary Need for prophylactic vaccination and inoculation against influenza Acquired hypothyroidism Unspecified hypothyroidism HTN, goal below 130/80 Unspecified essential hypertension Hyperlipidemia with target LDL less than 100 Other and unspecified hyperlipidemia Inflammation of sacroiliac joint (HCC) Sacroiliitis, not elsewhere classified Chronic pain of both shoulders Pain in joint, shoulder region Joint swelling Effusion of joint, site unspecified Stenosis of left subclavian artery (HCC) Atherosclerosis of other specified arteries documented in this encounter Care Teams Medical Laboratory Technician Relationship Specialty Start Date End Date Liliane Pena DO [address] [place] [address] [place] [address] PCP - General Internal Medicine 05/24/17 documented as of this encounter
--- OUTSIDE RECORDS SUMMARY | 2024-06-28 12:02 | External Medical Summary ---
Author Name Unknown Address Unknown Organization [id number]:[facility] - [address] [place] [address] Laboratory Report Ordering Provider Test Date Status TALI CALHOUN 04/21/2024 08:42:08 Final Observation Date Value Abnormality Reference (Units ) Status MYCODE SPECIMEN-SST 04/21/2024 08:42:08 Freezing of extracted DNA, whole blood and/or serum. Final Performing Location [facility] - [address] [place] [address]
--- OUTSIDE RECORDS SUMMARY | 2024-06-28 12:02 | External Medical Summary | Summary of Care ---
Author Name Unknown Organization [facility] Address [address] [place] [address] Phone [phone] Care Team Providers Care Hospital Liaison Name Role Phone Liliane Pena Primary Care Provider Reason for Visit * Reason Onset Date Comments Appointment 02/05/2024 Encounter Details Date Type Department Care Team (Late st Contact Info) Description 02/05/2024 Telephone Plastic Surgery, [place] [address] [place] [address] Services, [facility] [address] [place] [address] Appointment Allergies Active Allergy Reactions Criticality Noted Date Comments Venlafaxine 08/22/2017 Excessive cough, throat tightness Indomethacin 08/23/2023 nightmares documented as of this encounter (statuses as of 02/05/2024) Medications Medication Sig Dispensed Refills Start Date End Date Status Albuterol Sulfate (2.5 MG/3ML) 0.083% Inhalation Nebulization Solution (Proventil)Indicatio ns:Pulmonary emphysema, unspecified emphysema type (HCC) Inhale 1 Vial via nebulizer every 4 hours as needed for Wheezing. 90 mL 2 07/12/2020 Active Losartan Potassium 25 MG Oral Tablet (Cozaar) Take 1 Tablet (25 mg) by mouth in the morning. 100 Tablet 3 04/20/2022 Active Trelegy Ellipta 100-62.5-25 MCG/ACT Aerosol Powder Breath Activated (Fluticasone-Umeclid inium-Vilanterol)Ind ications:COPD, group B, by GOLD 2017 classification ([facility]) INHALE ONE PUFF BY MOUTH EVERY MORNING 180 Each 2 05/13/2023 Active Diclofenac Sodium 1 % External Gel [...] Sodium 20 MG Oral Tablet Delayed Release (Protonix)Indication s:Hiatal hernia TAKE ONE TABLET BY MOUTH EVERY MORNING 30 MINUTES BEFORE THE FIRST MEAL OF THE DAY. DO NOT CRUSH, CUT OR CHEW 100 Tablet 3 07/16/2023 5 Active Zoster Vac Recomb Adjuvanted 50 MCG/0.5ML Intramuscular Suspension Reconstituted (Shingrix)Indication s:Need for shingles vaccine Inject 0.5 mL into a large muscle now and repeat dose in 60 to 180 days 1 Each 1 08/23/2023 Active Clobetasol Propionate 0.05 % External Ointment (Temovate)Indication s:Rash and nonspecific skin eruption Apply twice daily [...] or other meds 100 Tablet 1 01/27/2024 Active documented as of this encounter (statuses as of 02/05/2024) Active Problems Problem Noted Date Diagnosed Date [...] classification 07/07 Overview: Noted on imaging at [facility] 07/2020. Pulmonary nodule 07/07/2020 Overview: KEITH, on imaging from [facility] 07/2020. Consider pulmonary referral. Hiatal hernia 06/19/2018 Overview: Small. Per EGD 06/2018 Generalized osteoarthritis 05/24/2017 Acquired hypothyroidism 01/29/2017 Mixed dyslipidemia 01/29/2017 HTN, goal below 130/80 01/29/2017 documented as of this encounter (statuses as of 02/05/2024) Resolved Problems Problem Noted Date Diagnosed Date Resolved Date Swelling of both hands 11/24/202108/22 Heart murmur 07/12/2020 08/09/2020 Moderate episode of recurren t major depressive disorder 05/24/2017 01/26/2020 Alcohol consumption of more than two drinks per day 05/24/2017 08/23/2023 Tobacco use disorder 01/29/2017 021 documented as of this encounter (statuses as of 02/05/2024) Immunizations Name Administration Dates Next Due COVID-19 [...] encounter Miscellaneous Notes * Telephone Encounter - Margarita Menchaca OSA - 02/05/2024 12:34 PM EDT I received a voicemail that this patient was unable to get telemed appointment to work yesterday. Icalled patient back to reschedule her appointment however she did not answer. Patient can be reschedule with the next available PA as Angel will be on medical leave. documented in this encounter Plan of Treatment Upcoming Encounters Date Type Department Care Team (Late st Contact Info) Description 02/13/2024 10:30 AM EDT Telemedicine Plastic Surgery, [place] [address] [place] [address] Carlie Emmanuel PA-C [address] [place] [address] 03/31/2024 3:10 PM EST Office Visit Family Medicine [address] [phone] [address] [place] [address] Scheduled Procedures Name Priority Associated Diagnoses Date/Ti [...] filedocumented as of this encounter Care Teams Hospital Liaison Relationship Specialty Start Date End Date Liliane Pena DO [address] [place] [address] [place] [address] PCP - General Internal Medicine 05/24/17 documented as of this encounter
--- OUTSIDE RECORDS SUMMARY | 2024-06-28 12:02 | External Medical Summary | Summary of Care ---
Author Name Unknown Organization [facility] Address [address] [place] [address] Phone [phone] Care Team Providers Care Welfare Service Aide Name Role Phone Liliane Pena Primary Care Provider Reason for Visit * Reason Comments Office Procedure Encounter Details Date Type Department Care Team (Late st Contact Info) Description 01/21/2024 10:00 AM EDT Office Visit Plastic Surgery, [place] [address], [place] [id number] Jose Alejandro Ortiz PA-C [address] [place] [address] Mass of soft tissue of face* Allergies Active Allergy Reactions Criticality Noted Date Comments Venlafaxine 08/22/2017 Excessive cough, throat tightness Indomethacin 08/23/2023 nightmares documented as of this encounter (statuses as of 01/21/2024) Medications Medication Sig Dispensed Refills Start Date [...] ications:COPD, group B, by GOLD 2017 classification (HCC) [...] CUT OR CHEW 100 Tablet 3 07/16/2023 Active Levothyroxine Sodium 88 MCG Oral Tablet (Levoxyl) Take 1 Tablet by mouth in the morning. (at least 30 min prior to breakfast or other meds). 100 Tablet 1 07/16/2023 Active Zoster Vac Recomb Adjuvanted 50 MCG/0.5ML [...] 180 days 1 Each 1 11/22/2023 Active Hospital, Clinic, or Other Facility Administered Medication Ordered Dose Route Frequency Start Date End Date Status lidocaine-epinephrine 1 %-1:[id number] inj 30 mgIndications:Mass of soft tissue of face 30 mg SC ONCE 01/21/2024 01/22/2024 Active documented as of this encounter (statuses as of 01/21/2024) Active Problems Problem Noted Date Diagnosed Date [...] classification 07/07 Overview: Noted on imaging at [facility] 07/2020. Pulmonary nodule 07/07/2020 Overview: KEITH, on imaging from [facility] 07/2020. Consider pulmonary referral. Hiatal hernia 06/19/2018 Overview: Small. Per EGD 06/2018 Generalized osteoarthritis 05/24/2017 Acquired hypothyroidism 01/29/2017 Mixed dyslipidemia 01/29/2017 HTN, goal below 130/80 01/29/2017 documented as of this encounter (statuses as of 01/21/2024) Resolved Problems Problem Noted Date Diagnosed Date Resolved Date Swelling of both hands 11/24/202108/22 Heart murmur 07/12/2020 08/09/2020 Moderate episode of recurren t major depressive disorder 05/24/2017 01/26/2020 Alcohol consumption of more than two drinks per day 05/24/2017 08/23/2023 Tobacco use disorder 01/29/2017 021 documented as of this encounter (statuses as of 01/21/2024) Immunizations Name Administration Dates Next Due COVID-19 [...] on file documented as of this encounter Patient Instructions * Patient Instructions* Jose Alejandro Ortiz PA-C - 01/21/2024 10:30 AM EDT Plastic Surgery Instructions for Dermabond Keep dressing in place for 24 hours. Then you may shower and wash the suture line with antibacterial soap (Dial) and water. Do not submerge the wound under water (bathtub, swimming, hot tub, etc.) for 3 weeks following surgery. You may cover the incision with a bandage or leave open to air if desired. The incisions are sealedwith Dermabond, a topical skin adhesive that will usually remain in place for 7-14 days. Dermabond will naturally fall off your skin. Do not scratch, rub, or pick at the adhesive film. You do not need antibiotic ointment unless there is a draining area along the incision. In this case you may applyantibiotic ointment (Bacitracin or Polysporin) where you note drainage. You will have a follow-up visit in ~2 weeks. At that time, pathology will be reviewed (if indicated) and you will receive instructions regarding scar massage. Once the wound is healed, begin scar massage with a moisturizing lotion (Vitamin E oil or cocoa butter, etc.) 2 times per day. This will help to soften the scar. You will need to continue this until the scar is colorless. If the scar is in an area which will be exposed to the sun or tanning booths, protect it with sunscreen (SPF 15 or greater). You should do this for 1 year following surgery. Contact us with any questions or concerns: Saturday-Saturday, 8 am - 4:30 pm call [facility] . Evenings and weekends call [phone] and ask for the Plastic Surgery Provider general operations agent. documented in this encounter Progress Notes * Jose Alejandro Ortiz PA-C - 01/21/2024 10:00 AM EDT PROCEDURE NOTE SERVICE: Plastic Surgery DATE: 01/21/2024 PRE-OP DIAGNOSIS: Mass left forehead POST-OP DIAGNOSIS: Same. PROVIDER: Jose Alejandro Ortiz PA-C ANESTHESIA: Local OPERATION: Excision of mass left forehead. FINDINGS: submuscular lipoma of the forehead ESTIMATED BLOOD LOSS: 2 ml SPECIMEN: Mass left forehead INDICATIONS AND HISTORY: Patient is a 68 year old female who presents today for excision mass of the left FH. She has been seen by dermatology and patient referred here for excision. Pt had previously removed and it came back. Pt has had it for six months and feels it is getting larger. No pain with it. Pt denies h/o skin cancers. She had it previously excised ~15 years ago and came back as a cystic lesion. Pt denies drainage or redness. She does note itching. She notes her brother has skin cancer history but no personal history of skin cancers. Pt denies issues with heavy scarring. Consent obtained and discussed possible complications including hematoma, seroma, delayed healing, contour deformity, cosmetic deformity, poor scarring, recurrence and need for additional surgery. DESCRIPTION OF OPERATION: The patient was identified and the procedure verified. The patient was placed in a supine position. A spindle-shaped incision was made over previous scar. The mass size (before excision) 1.5 x 1.5 cm, and total length was 2 cm. Area was prepped and draped and anesthetized with 3 ml of 1% lidocaine with 1:100,000 epinephrine. Incision was made as marked. Area was removed at submuscular level. Following completion, undermining was performed. A final check for bleeding was made and controlled. Tissue was advanced and closure done utilizing interrupted inverted suture of4-0 vicryl in muscle, 4-0 Monocryl in the subcutaneous tissue and deep dermis and running 5-0 Monocryl subcuticularly. Dermabond and compression dressing was applied. The patient tolerated procedure without difficulty. Postoperative instructions are explained to patient. Pt will clean the area starting tomorrow with soap and water. I will see patient back in ~2 weeks as a telemed appt, and they know to contact us should they have any problems or questions. Jose Alejandro Ortiz PA-C documented in this encounter Nursing Notes * Luceor Morgan RN - 01/21/2024 10:40 AM EDT Temperature of 70F - 75F in room 69.5 within normal limits. Humidity of 20% - 60% recorded at 52%, within normal limits, discussed with JOSE ALEJANDRO ORTIZ. The provider has made a clinical evaluation to proceed with the procedure. All sterile instruments and supplies being used for the procedures have been visually inspected for any signs of being compromised, including but not limited to,water stains on wrap and instruments, condensation on wrap or instruments, and torn or damaged packaging. documented in this encounter Plan of Treatment Upcoming Encounters Date Type Department Care Team (Late st Contact Info) Description 02/04/2024 2:00 PM EDT Telemedicine Plastic Surgery, [place] [address] [place] [address] Jose Alejandro Ortiz PA-C [address] [place] [address] 03/31/2024 3:10 PM EST Office Visit Family [address] [place] [phone] Liliane Pena [address] [place] [address] Pending Results Name Type Priority Associated Diagnoses Date /Time SURGICAL PATHOLOGY Pathology Routine Mass of soft tissue of face 01/21/2024 11:31 AM EDT Scheduled Procedures Name Priority Associated Diagnoses Date/Ti [...] as of this encounter Visit Diagnoses Diagnosis Mass of soft tissue of face- Primary documented in this encounter Care Teams Welfare Service Aide Relationship Specialty Start Date End Date Liliane Pena DO [address] [place] [address] [place] [phone] PCP - General Internal Medicine 05/24/17 documented as of this encounter
--- OUTSIDE RECORDS SUMMARY | 2024-06-28 12:02 | External Medical Summary | Summary of Care ---
Author Name Unknown Organization [facility] Address [address] [facility] [address] Phone [phone] Care Team Providers Care Miter Grinder Operator Name Role Phone Cipriano To DO Primary Care Provider Reason for Visit * Reason Comments Medication Refill Encounter Details Date Type Department Care Team (Late st Contact Info) Description 02/06/2024 Refill Family Medicine [address] [phone] Cipriano To [address] [address] COPD, group B, by GOLD 2017 classification ([facility]) Allergies Active Allergy Reactions Criticality Noted Date Comments Venlafaxine 08/22/2017 Excessive cough, throat tightness Indomethacin 08/23/2023 nightmares documented as of this encounter (statuses as of 02/07/2024) Medications Medication Sig Dispensed Refills Start Date End Date Status Albuterol Sulfate (2.5 MG/3ML) 0.083% Inhalation Nebulization Solution (Proventil)Indicati ons:Pulmonary emphysema, unspecified emphysema type ([facility]) Inhale 1 Vial via nebulizer every 4 hours as needed for Wheezing. 90 mL 2 07/12/2020 Active Losartan Potassium 25 MG Oral Tablet (Cozaar) Take 1 Tablet (25 mg) by mouth in the morning. 100 Tablet 3 04/20/2022 Active Diclofenac Sodium 1 % External Gel (Voltaren) APPLY TO NECK TWO TIMES A DAY NEEDED FOR PAIN 100 g 3 06/03/2023 Active Metoprolol Succinate ER 50 MG Oral Tablet Extended Release 24 Hour (toPROL XL)Indications:HTN, goal below 130/80,Tachycardia TAKE ONE TABLET BY MOUTH EVERY MORNING 100 Tablet 3 06/11/2023 Active Additional Information Patient not taking.Reported on [...] OR CHEW 100 Tablet 3 07/16/2023 Active Zoster Vac Recomb Adjuvanted 50 [...] other meds 100 Tablet 1 01/27/2024 Active Trelegy Ellipta 100-62.5-25 MCG/ACT Aerosol Powder Breath Activated (Fluticasone-Umecli dinium-Vilanterol)I ndications:COPD, group B, by GOLD 2017 classification ([facility]) INHALE ONE PUFF BY MOUTH EVERY MORNING 180 Each 2 02/07/2024 5 Active Trelegy Ellipta 100-62.5-25 MCG/ACT Aerosol Powder Breath Activated (Fluticasone-Umecli dinium-Vilanterol)I ndications:COPD, group B, by GOLD 2017 classification ([facility]) INHALE ONE PUFF BY MOUTH EVERY MORNING 180 Each 2 05/13/2023 4 Discontinu ed(Refill) documented as of this encounter (statuses as of 02/07/2024) Active Problems Problem Noted Date Diagnosed Date [...] classification 07/07 Overview: Noted on imaging at [facility] 07/2020. Pulmonary nodule 07/07/2020 Overview: KEITH, on imaging from [facility] 07/2020. Consider pulmonary referral. Hiatal hernia 06/19/2018 Overview: Small. Per EGD 06/2018 Generalized osteoarthritis 05/24/2017 Acquired hypothyroidism 01/29/2017 Mixed dyslipidemia 01/29/2017 HTN, goal below 130/80 01/29/2017 documented as of this encounter (statuses as of 02/07/2024) Resolved Problems Problem Noted Date Diagnosed Date Resolved Date Swelling of both hands 11/24/202108/22 Heart murmur 07/12/2020 08/09/2020 Moderate episode of recurren t major depressive disorder 05/24/2017 01/26/2020 Alcohol consumption of more than two drinks per day 05/24/2017 08/23/2023 Tobacco use disorder 01/29/2017 021 documented as of this encounter (statuses as of 02/07/2024) Immunizations Name Administration Dates Next Due COVID-19 mRNA, LNP-s, No Pre serve, 2-Dose Series ([employer]) 08/31/2020,08/10/2020 Pneumococcal Conjugate Vacc, 13 Valent [...] encounter Miscellaneous Notes * Telephone Encounter - Andrea Steen [facility] - 02/07/2024 11:11 AM EDTSigned Prescriptions: Disp Refills Trelegy Ellipta 100-62.5-25 MCG/ACT Aeroso*180 Ea*2 Sig: INHALE ONE PUFF BY MOUTH EVERY MORNINGAuthorizing Provider: CIPRIANO TOOrderdamion User: ANDREA STEEN N documented in this encounter Plan of Treatment Upcoming Encounters Date Type Department Care Team (Late st Contact Info) Description 02/13/2024 10:30 AM EDT Telemedicine Plastic Surgery, [place] [address] [place] [address] Carlie Emmanuel PA-C [address] [place] [address] 03/31/2024 3:10 PM EST Office Visit Family [address] [phone] Cipriano To [address] [place] [phone] Scheduled Procedures Name Priority Associated Diagnoses Date/Ti [...] group B, by GOLD 2017 classification (HCC) documented in this encounter Care Teams Miter Grinder Operator Relationship Specialty Start Date End Date Cipriano To DO [address] [place] [address] [place] [address] PCP - General Internal Medicine 05/24/17 documented as of this encounter
--- OUTSIDE RECORDS SUMMARY | 2024-06-28 12:02 | External Medical Summary | Summary of Care ---
Author Name Unknown Organization [facility] Address [address] [place] [address] Phone [phone] Care Team Providers Care Linen Grader Name Role Phone Liliane Pena Primary Care Provider [phone] Reason for Visit * Reason Onset Date Comments Appointment 02/05/2024 Encounter Details Date Type Department Care Team (Late st Contact Info) Description 02/05/2024 Telephone Plastic Surgery, [place] [address] [place] [address] Services, [facility] [address] [place] [address] Appointment Allergies Active Allergy Reactions Criticality Noted Date Comments Venlafaxine 08/22/2017 Excessive cough, throat tightness Indomethacin 08/23/2023 nightmares documented as of this encounter (statuses as of 02/25/2024) Medications Medication Sig Dispensed Refills Start Date [...] as of this encounter (statuses as of 02/25/2024) Active Problems Problem Noted Date Diagnosed Date [...] classification 07/07 Overview: Noted on imaging at [facility] 07/2020. Pulmonary nodule 07/07/2020 Overview: KEITH, on imaging from [facility] 07/2020. Consider pulmonary referral. Hiatal hernia 06/19/2018 Overview: Small. Per EGD 06/2018 Generalized osteoarthritis 05/24/2017 Acquired hypothyroidism 01/29/2017 Mixed dyslipidemia 01/29/2017 HTN, goal below 130/80 01/29/2017 documented as of this encounter (statuses as of 02/25/2024) Resolved Problems Problem Noted Date Diagnosed Date Resolved Date Swelling of both hands 11/24/202108/22 Heart murmur 07/12/2020 08/09/2020 Moderate episode of recurren t major depressive disorder 05/24/2017 01/26/2020 Alcohol consumption of more than two drinks per day 05/24/2017 08/23/2023 Tobacco use disorder 01/29/201704/19/ 021 documented as of this encounter (statuses as of 02/25/2024) Immunizations Name Administration Dates Next Due COVID-19 [...] encounter Miscellaneous Notes * Telephone Encounter - Carlie Emmanuel PA-C - 02/25/2024 3:59 PM EDT Called pt and reviewed path which showed lipoma. She notes incision healing well and she has no concerns. Scar massage and use of sunscreen reviewed. Pt does not need to reschedule her appointment. She knows to call with any questions or concerns. Carlie Emmanuel PA-C * Telephone Encounter - Fouzia Rothman OSA - 02/24/2024 3:42 PM EDT Pt calling in to see if she can get the pathology results- she is unable to do a video visit and lives a distance. She said she is doing well and depending on the results she does not think she needsa follow up. Please give her a call Ty * Telephone Encounter - Margarita Menchaca OSA [...] Description 03/31/2024 3:10 PM EST Office Visit [address] [place] [phone] Liliane Pena[address] [place] [phone] Scheduled Procedures Name Priority Associated Diagnoses Date/Ti [...] 07/31/2032 07/31/2022, 07/31/2022 Pap Smear Discontinued 02/10/2018, 0 12/2017, 06/13/2015 (Done elsewhere) Alpha-1 Antitrypsin Completed [...] filedocumented as of this encounter Care Teams Linen Grader Relationship Specialty Start Date End Date Liliane Pena DO [address] [place] [address] [place] [address] PCP - General Internal Medicine 05/24/17 documented as of this encounter
--- OUTSIDE RECORDS SUMMARY | 2024-06-28 12:02 | External Medical Summary | Summary of Care ---
Author Name Unknown Organization [facility] Address [address] [facility] [place] [address] Phone [phone] Care Team Providers Care Paint Crew Supervisor Name Role Phone Pena, Lilianebekah Isaac Primary Care Provider Encounter Details Date Type Department Care Team (Late st Contact Info) Description 04/21/2024 9:20 AM EST Nurse Only Ancillary [address] [place] [address] [place], Nurse [address] [place] [address] Arrived Allergies Active Allergy Reactions Criticality Noted [...] group B, by GOLD 2017 classification ([facility]) INHALE ONE PUFF BY MOUTH EVERY MORNING [...] 07/07 Overview (07/07/2020): Noted on imaging at [facility] 07/2020. Pulmonary nodule 07/07/2020 Overview (07/07/2020): KEITH, on imaging from [facility] 07/2020. Consider pulmonary referral. Hiatal [...] (Prevnar) 06/25/2017 Pneumococcal Conjugate Vacci ne, 20-valent ([id number]) 04/21/2024 Pneumococcal Polysaccharide PPV23 (Pneumovax) 01/22/2019 Seasonal [...] 2:30 PM EDT Office Visit Family Medicine [address] [place] [phone] [place] [address] Scheduled Procedures Name Priority Associated Diagnoses Date/Ti [...] filedocumented as of this encounter Care Teams Paint Crew Supervisor Relationship Specialty Start Date End Date Liliane Pena DO [address] [place] [address] [place] [phone] PCP - General Internal Medicine 05/24/17 documented as of this encounter
--- OUTSIDE RECORDS SUMMARY | 2024-06-28 12:02 | External Medical Summary ---
Author Name Unknown Address Unknown Organization [id number]:[facility] - [address] [place] [address] Laboratory Report Ordering Provider Test Date Status ZULEIKA COTA 04/21/2024 08:42:08 Final Observation Date Value Abnormality Reference (Units ) Status TSH 04/21/2024 08:42:08 16.50 Above high normal 0. 27-4.20 (uIU/mL) Final Performing Location [facility] - [address] [facility] [address]
--- OUTSIDE RECORDS SUMMARY | 2024-06-28 12:02 | External Medical Summary ---
Author Name Unknown Address Unknown Organization K01:[facility] [place] [address] [place] [address] Laboratory Report Ordering Provider Test Date Status ZULEIKA COTA 04/21/2024 08:42:08 Final Observation Date Value Abnormality Reference (Units ) Status Cyclic citrullinated peptide IgG Ab [Presence] in Serum 04/21/2024 08:42:08 Negative Negative Final Cyclic citrullinated peptide IgA+IgG Ab [Units/volume] in Serum or Plasma by Immunoassay 04/21/2024 08:42:08 0.6 <7 (U/mL) Final Performing Location [facility] [place] [place] [facility] [address] [place] [address]
--- OUTSIDE RECORDS SUMMARY | 2024-06-28 12:02 | External Medical Summary ---
Author Name Unknown Address Unknown Organization [id number]:[facility] [address] [place] [address] Laboratory Report Ordering Provider Test Date Status TALI CALHOUN 04/21/2024 08:42:08 Final Observation Date Value Abnormality Reference (Units ) Status MYCODE SPECIMEN-SST 04/21/2024 08:42:08 Freezing of extracted DNA, whole blood and/or serum. Final Performing Location [facility] [place] [address] [place] [address]
--- OUTSIDE RECORDS SUMMARY | 2024-06-28 12:02 | External Medical Summary | Summary of Care ---
Author Name Unknown Organization [facility] Address [address] [place] [address] Phone [phone] Care Team Providers Care Jigger Crown Pouncing Machine Operator Name Role Phone Liliane Pena Primary Care Provider Reason for Visit * Reason Onset Date Comments Appointment 02/05/2024 Encounter Details Date Type Department Care Team (Late st Contact Info) Description 02/05/2024 Telephone Plastic Surgery, [place] [address] [place] [address] Services, [facility] [address] [place] [address] Appointment Allergies Active Allergy Reactions Criticality Noted Date Comments Venlafaxine 08/22/2017 Excessive cough, throat tightness Indomethacin 08/23/2023 nightmares documented as of this encounter (statuses as of 02/24/2024) Medications Medication Sig Dispensed Refills Start Date [...] as of this encounter (statuses as of 02/24/2024) Active Problems Problem Noted Date Diagnosed Date [...] as of this encounter (statuses as of 02/24/2024) Resolved Problems Problem Noted Date Diagnosed Date Resolved Date Swelling of both hands 11/24/202108/22 Heart murmur 07/12/2020 08/09/2020 Moderate episode of recurren t major depressive disorder 05/24/2017 01/26/2020 Alcohol consumption of more than two drinks per day 05/24/2017 08/23/2023 Tobacco use disorder 01/29/201704/19/ 021 documented as of this encounter (statuses as of 02/24/2024) Immunizations Name Administration Dates Next Due COVID-19 [...] encounter Miscellaneous Notes * Telephone Encounter - Fouzia Rothman OSA [...] 3:10 PM EST Office Visit Family Medicine [address] [place] [phone] Liliane Pena[address] [place] [address] Scheduled Procedures Name Priority Associated Diagnoses Date/Ti [...] PCV20) 01/23/2024 01/22/2019, 06/25/2017 GFR 08/20/2024 08/21/2023, /08/2022, 03/09/2022, Additional history exists TSH 08/20/2024 08/21/2023, [...] filedocumented as of this encounter Care Teams Jigger Crown Pouncing Machine Operator Relationship Specialty Start Date End Date Liliane Pena DO [address] [place] [address] [place] [phone] PCP - General Internal Medicine 05/24/17 documented as of this encounter
--- NOTE | 2024-06-28 12:41 | Emergency Department Note ---
Impression & Plan Closed right ankle fracture, Alcohol dependence ED Provider Note CHIEF COMPLAINT: Fall HISTORY OF PRESENTING ILLNESS: Patient is a pleasant 69-year-old female who arrives to the emergency department for evaluation of injury sustained from a mechanical fall. She reports she fell last night while she was letting her dogs out. She states her right ankle is painful and swollen. She states she is unable to ambulate due to pain. She reports when falling her right toes "bent up" and she landed on her right knee. She reports no pain in the right knee. She reports no head strike, loss of consciousness, or anticoagulant use. REVIEW OF SYSTEMS: See HPI for pertinent positives and pertinent negatives. ALLERGIES: Venlafaxine, nickel MEDICATIONS: See below PAST MEDICAL HISTORY: See below PHYSICAL EXAM: VITALS: Vitals are noted on the nurse's note and reviewed by myself. Vital signs stable. GENERAL: 69-year-old female, in no acute distress, nondiaphoretic, well- developed well-nourished. SKIN: The skin was without rashes, erythema, edema, or bruising. HEAD: Normocephalic atraumatic. NECK: Supple without nuchal rigidity. No lymphadenopathy. Cervical spine is nontender. HEART: Regular rate and rhythm without murmurs gallops or rubs. LUNGS: Clear to auscultation bilaterally without wheezes, rales or rhonchi. No retractions or accessory muscle use. ABDOMEN: Positive bowel sounds x 4. Soft, nontender, without masses or organomegaly. Muller sign negative. No guarding or rebound tenderness. MUSCULOSKELETAL: Erythema, edema, ecchymosis present to the dorsal surface of the right foot, extending over the medial aspect of the ankle and to the proximal tib-fib. No ROM performed, secondary to pain. DP pulse intact. Capillary refill <3. NEURO: Patient was alert and oriented to person place and time. No focal neurological deficits. DIFFERENTIAL DIAGNOSIS: Fracture, subluxation, dislocation, contusion, ligamentous injury, neurovascular, compartment syndrome, as well as other pathologies. HISTORY FROM INDEPENDENT HISTORIAN: Significant other at bedside as secondary historian INTERPRETATION OF IMAGING: Imaging studies were interpreted by myself and read by radiology as per the imaging section of this note. CHRONIC MEDICAL/SOCIAL CONDITIONS AFFECTING CARE: Chronic alcohol use, COPD. CONSULTATIONS: Dr. Reyes from orthopedics was consulted who recommended reduction with postreduction imaging, and posterior with stirrup Ortho-Glass splinting. He stated the patient may follow-up on an outpatient basis. PROCEDURES: Procedural sedation performed, please refer to Dr. Chu's note for procedural sedation. When appropriate level of sedation was achieved, the ankle was reduced using gentle traction by myself, with pulses present. Ortho-Glass splinting was performed by ED staff with splint placement verified by myself with pulses present. Post reduction X-ray imaging was performed which showed significantly better alignment. MDM SUMMARY: The patient is a pleasant 69-year-old female who arrives to the emergency department for evaluation of the above-stated complaint. X-ray imaging of the right foot, right ankle, and right tib-fib were obtained which shows a displaced distal fibular shaft fracture, with displaced medial malleolus fracture, and lateral anterior subluxation of the talus with respect to the distal tibia. Contact was made with Dr. Reyes from orthopedics who stated the patient may be reduced, splinted, and follow-up in office since she is neurovascularly intact. The patient will require surgical intervention when swelling has subsided. Procedural sedation with reduction performed as above. Discharge to home with crutches was considered, however, the patient would be unstable and a significant fall risk. The patient will require admission to the hospital until she is ready for surgical intervention. Dr. Reyes was able to evaluate post reduction imaging and determined the ankle would require further manipulation for better alignment. Orthopedic fellow Dr. Gongora, performed a second procedural sedation with Dr. Chu to better align the joint using the C- arm. Please refer to his note. Contact was made with case management to facilitate contact with the [facility] Hospitalist group. Dr. Shannon was consulted for admission who agreed to evaluate and admit the patient under her care. Please refer to her documentation and orthopedics documentation for further patient workup and care. DIAGNOSIS: Closed ankle fracture The patient's case was discussed with Dr. Cuh, who agreed with my evaluation and treatment plan. The chart was completed utilizing [employer] voice recognition software. Grammatical errors, random word insertions, pronoun errors, and incomplete sentences are an occasional consequence of this system due to software limitations, ambient noise, and hardware issues. Any formal questions or concerns about the content, text, or information contained within the body of this dictation should be directly addressed to the provider for clarification. Past Med/Surg History Problem List (Updated 07/03/24 @ 12:29 by BARBIE Montano) Closed right ankle fracture (Acute) Difficult airway for intubation Postoperative hematoma Myelopathy concurrent with and due to spinal stenosis of cervical region Encounter for pre-operative examination Sepsis (Acute) Hypoxia (Acute) Acute hypoxemic respiratory failure Left arm pain Cervical spine disease Hypoxemia (Acute) Hypertension controlled, stable per pt Hypothyroidism HLD (hyperlipidemia) COPD (chronic obstructive pulmonary disease) (Acute) inhaler daily and prn with exertion such as a flight of stairs, average 1-2 times weekly Alcohol dependence (Acute) no longer drinks beer, however 3 vodka cocktails daily Medical History Pleurisy last episode 3 yrs ago Chronic neck pain Chronic back pain Hepatic steatosis SANDRA (obstructive sleep apnea) pt states she had sleep study test done was ok--no device Tobacco abuse disorder GERD (gastroesophageal reflux disease) controlled, stable per pt Surgical History History of bilateral tubal ligation History of lumbar surgery History of tooth extraction all top teeth removed and some on bottom History of wisdom tooth extraction History of thoracotomy [address] [facility]--and right lung with chest tube placement--per pt was due to intermittent spontaneous pneumothorax of right lung---pt states she gets intermittent pleurisy (last time was 3 yrs ago) History of colonoscopy History of esophagogastroduodenoscopy (EGD) Family History Mother Pancreatic cancer Father , fatal [facility] @ 42 Myocardial infarction Other No family history of adverse response to anesthesia Social History Smoking Status: Former smoker Cigarettes Per Day: 3; Second Hand Exposure: No; Do You Dip or Chew Tobacco: No; Hx Alcohol Use: No Hx Substance Use: No Preferred Language: Setswana Communication Ability: Effective Scarf Gluer Required: No Beliefs That Will Affect Care: None marital status: Current Living Situation: Spouse Other Information That Helps Us Care for You: No Feels Safe at Home: Yes Safety Concerns: Feels Safe At This Time Assistive Devices: None Allergies Allergies Allergy/AdvReac Type Severity Reaction Status Date / Time venlafaxine Allergy Severe severe Verified 08/08/22 08:29 cough, throat tightness nickel Allergy Mild Rash Verified 08/08/22 08:29 Home Meds Home Medications Medication Instructions Recorded Confirmed pantoprazole 20 mg tablet,delayed 20 mg PO QAM 07/06/20 06/28/24 release cyanocobalamin (vitamin B-12) 100 100 mcg PO QAM 09/13/21 06/28/24 mcg tablet fluticasone fur. 100 mcg-umeclid 1 inh inhalation QAM 09/13/21 06/28/24 62.5 mcg-vilant 25 mcg inhalat.powder (Trelegy Ellipta) aspirin 81 mg capsule 81 mg PO QAM 07/23/22 06/28/24 diclofenac sodium 1 % topical gel 2 g topical QID PRN neck pain 07/23/22 06/28/24 atorvastatin 40 mg tablet 40 mg PO QAM 06/28/24 06/28/24 levothyroxine 125 mcg tablet 175 mcg PO DAILYBB 06/28/24 06/28/24 losartan 25 mg tablet 25 mg PO DAILY 06/28/24 06/28/24 metoprolol succinate 50 mg 50 mg PO QAM 06/28/24 06/28/24 tablet,extended release 24 hr Results & Data (ED) Vital Signs Vital Signs - 24 hr 06/28/24 12:00 06/28/24 15:35 06/28/24 15:39 Temperature 36.6 C Temperature Source Temporal Artery Scan Pulse Rate 105 H 82 91 H Pulse Rate [Apical] Pulse Rate from SpO2 Sensor 84 Respiratory Rate 18 10 L Respiratory Effort / Characteristics Non-Labored Spontaneous Respiratory Depth Normal Respiratory Pattern Regular Blood Pressure 117/78 158/73 H Blood Pressure [Right Arm] Blood Pressure Mean 91 101 Blood Pressure Mean [Right Arm] Pulse Oximetry 93 93 Oxygen Delivery Method Room Air Nasal Cannula Oxygen Flow Rate 2 Sepsis Recent Fever Within 48 Hours No Sepsis New/Unexplained Change in Mental Status N/A Sepsis Action Taken by Nursing No Action Required End-Tidal CO2 38 End Tidal CO2 (18-54mmHg) 06/28/24 15:41 06/28/24 15:46 06/28/24 15:51 Temperature Temperature Source Pulse Rate 92 H 91 H 105 H Pulse Rate [Apical] Pulse Rate from SpO2 Sensor Respiratory Rate 15 14 16 Respiratory Effort / Characteristics Non-Labored Spontaneous Non-Labored Spontaneous Non-Labored Spontaneous Respiratory Depth Normal Normal Normal Respiratory Pattern Regular Regular Regular Blood Pressure Blood Pressure [Right Arm] 159/81 H 150/82 H 219/109 H Blood Pressure Mean Blood Pressure Mean [Right Arm] Pulse Oximetry 93 94 94 Oxygen Delivery Method Nasal Cannula Nasal Cannula Nasal Cannula Oxygen Flow Rate 6 6 6 Sepsis Recent Fever Within 48 Hours Sepsis New/Unexplained Change in Mental Status Sepsis Action Taken by Nursing End-Tidal CO2 End Tidal CO2 (18-54mmHg) 39 37 49 06/28/24 15:56 06/28/24 16:01 06/28/24 16:06 Temperature Temperature Source Pulse Rate 108 H 93 H 94 H Pulse Rate [Apical] Pulse Rate from SpO2 Sensor Respiratory Rate 12 23 14 Respiratory Effort / Characteristics Non-Labored Spontaneous Non-Labored Spontaneous Non-Labored Spontaneous Respiratory Depth Normal Normal Normal Respiratory Pattern Regular Regular Regular Blood Pressure Blood Pressure [Right Arm] 202/121 H 181/83 H 171/107 H Blood Pressure Mean Blood Pressure Mean [Right Arm] Pulse Oximetry 96 94 94 Oxygen Delivery Method Nasal Cannula Nasal Cannula Nasal Cannula Oxygen Flow Rate 6 6 2 Sepsis Recent Fever Within 48 Hours Sepsis New/Unexplained Change in Mental Status Sepsis Action Taken by Nursing End-Tidal CO2 End Tidal CO2 (18-54mmHg) 41 42 36 06/28/24 16:10 06/28/24 16:11 06/28/24 16:15 Temperature Temperature Source Pulse Rate 87 83 87 Pulse Rate [Apical] Pulse Rate from SpO2 Sensor Respiratory Rate 13 15 12 Respiratory Effort / Characteristics Non-Labored Spontaneous Respiratory Depth Normal Respiratory Pattern Regular Blood Pressure 143/68 H 143/71 H Blood Pressure [Right Arm] 130/66 Blood Pressure Mean 109 102 Blood Pressure Mean [Right Arm] Pulse Oximetry 91 91 92 Oxygen Delivery Method Nasal Cannula Nasal Cannula Nasal Cannula Oxygen Flow Rate 2 2 2 Sepsis Recent Fever Within 48 Hours Sepsis New/Unexplained Change in Mental Status Sepsis Action Taken by Nursing End-Tidal CO2 42 41 End Tidal CO2 (18-54mmHg) 34 06/28/24 16:16 06/28/24 16:20 06/28/24 16:20 Temperature Temperature Source Pulse Rate 87 83 83 Pulse Rate [Apical] Pulse Rate from SpO2 Sensor Respiratory Rate 14 14 15 Respiratory Effort / Characteristics Respiratory Depth Respiratory Pattern Blood Pressure 130/66 Blood Pressure [Right Arm] 143/66 H 130/86 Blood Pressure Mean 91 Blood Pressure Mean [Right Arm] Pulse Oximetry 92 91 91 Oxygen Delivery Method Nasal Cannula Nasal Cannula Nasal Cannula Oxygen Flow Rate 2 2 2 Sepsis Recent Fever Within 48 Hours Sepsis New/Unexplained Change in Mental Status Sepsis Action Taken by Nursing End-Tidal CO2 40 End Tidal CO2 (18-54mmHg) 37 37 06/28/24 16:25 06/28/24 16:30 06/28/24 16:56 Temperature Temperature Source Pulse Rate 82 86 95 H Pulse Rate [Apical] Pulse Rate from SpO2 Sensor Respiratory Rate 11 L 16 14 Respiratory Effort / Characteristics Respiratory Depth Respiratory Pattern Blood Pressure 135/75 156/81 H Blood Pressure [Right Arm] 151/78 H Blood Pressure Mean 97 115 Blood Pressure Mean [Right Arm] Pulse Oximetry 93 94 96 Oxygen Delivery Method Nasal Cannula Nasal Cannula Nasal Cannula Oxygen Flow Rate 2 6 Sepsis Recent Fever Within 48 Hours Sepsis New/Unexplained Change in Mental Status Sepsis Action Taken by Nursing End-Tidal CO2 40 40 End Tidal CO2 (18-54mmHg) 40 06/28/24 17:01 06/28/24 17:06 06/28/24 17:11 Temperature Temperature Source Pulse Rate 93 H 92 H 93 H Pulse Rate [Apical] Pulse Rate from SpO2 Sensor Respiratory Rate 10 L 22 15 Respiratory Effort / Characteristics Respiratory Depth Respiratory Pattern Blood Pressure Blood Pressure [Right Arm] 183/99 H 192/107 H 191/95 H Blood Pressure Mean Blood Pressure Mean [Right Arm] Pulse Oximetry 92 97 96 Oxygen Delivery Method Nasal Cannula Nasal Cannula Nasal Cannula Oxygen Flow Rate 6 8 8 Sepsis Recent Fever Within 48 Hours Sepsis New/Unexplained Change in Mental Status Sepsis Action Taken by Nursing End-Tidal CO2 End Tidal CO2 (18-54mmHg) 37 32 40 06/28/24 17:16 06/28/24 17:21 06/28/24 17:26 Temperature Temperature Source Pulse Rate 86 91 H 89 Pulse Rate [Apical] Pulse Rate from SpO2 Sensor Respiratory Rate 14 15 13 Respiratory Effort / Characteristics Respiratory Depth Respiratory Pattern Blood Pressure Blood Pressure [Right Arm] 167/134 H 185/94 H 137/74 Blood Pressure Mean Blood Pressure Mean [Right Arm] Pulse Oximetry 94 92 92 Oxygen Delivery Method Nasal Cannula Nasal Cannula Nasal Cannula Oxygen Flow Rate 8 2 2 Sepsis Recent Fever Within 48 Hours Sepsis New/Unexplained Change in Mental Status Sepsis Action Taken by Nursing End-Tidal CO2 End Tidal CO2 (18-54mmHg) 38 06/28/24 17:30 06/28/24 18:00 Temperature Temperature Source Pulse Rate 90 Pulse Rate [Apical] 78 Pulse Rate from SpO2 Sensor Respiratory Rate 16 21 Respiratory Effort / Characteristics Non-Labored Spontaneous Respiratory Depth Normal Respiratory Pattern Blood Pressure Blood Pressure [Right Arm] 143/80 H 119/64 Blood Pressure Mean Blood Pressure Mean [Right Arm] 82 Pulse Oximetry 93 91 Oxygen Delivery Method Nasal Cannula Nasal Cannula Oxygen Flow Rate 2 4 Sepsis Recent Fever Within 48 Hours Sepsis New/Unexplained Change in Mental Status Sepsis Action Taken by Nursing End-Tidal CO2 End Tidal CO2 (18-54mmHg) Laboratory Data 07/03/24 05:29 07/03/24 05:29 Lab Results 06/28/24 06/28/24 Range/Units 15:45 17:21 WBC 8.90 (4.8-10.8) K/ul RBC 4.20 (4.20-5.40) M/uL Hgb 13.0 (12.0-16.0) g/dl Hct 38.3 (37.0-47.0) % MCV 91.2 (80.0-100.0) fL MCH 31.0 (25.0-34.0) pg MCHC 33.9 (32.0-36.0) g/dL RDW Std Deviation 45.2 (36.4-46.3) fL RDW Coeff of Angela 13.6 (11.5-14.5) % Plt Count 288 (130-400) K/uL MPV 9.9 (9.4-12.4) fL Sodium 137 (136-145) mmol/L Potassium 3.5 (3.5-5.1) mmol/L Chloride 103 (98-107) mmol/L Carbon Dioxide 24 (21-32) mmol/L Anion Gap 10 (3-11) BUN 9 (6-23) mg/dl Creatinine 0.66 (0.6-1.2) mg/dl Est Cr Clr Drug Dosing 77.3 ml/min eGFR 96.09 BUN/Creatinine Ratio 13.6 (10-20) Glucose 109 H (70-99(Fasting)) mg/dl Lactate 1.0 (0.4-2.0) mmol/L Calcium 9.2 (8.6-10.3) mg/dl Phosphorus 3.1 (2.5-4.9) mg/dl Magnesium 1.7 (1.7-2.4) mg/dl Total Bilirubin 0.9 (0.2-1.0) mg/dl AST 22 (13-39) U/L ALT 27 (7-52) U/L Alkaline Phosphatase 76 (34-104) U/L Total Protein 7.0 (6.0-8.3) gm/dl Albumin 4.3 (3.4-5.0) gm/dl Globulin 2.7 (2.5-4.0) gm/dl Albumin/Globulin Ratio 1.6 (0.9-2) Ethyl Alcohol mg/dL < 10.0 (<10.0) mg/dl Administered Medications Acetaminophen (Acetaminophen 500 Mg Tab) 1,000 mg PO Q8H NAINA Stop: 07/28/24 19:59 Last Admin: 07/03/24 04:56 Dose: 1,000 mg Documented By: Admin: 07/02/24 19:39 Dose: 1,000 mg Documented By: Admin: 07/02/24 17:58 Dose: Not Given Documented By: Admin: 07/02/24 03:47 Dose: 1,000 mg Documented By: Admin: 07/01/24 19:58 Dose: 1,000 mg Documented By: Admin: 07/01/24 13:26 Dose: 1,000 mg Documented By: Admin: 07/01/24 05:21 Dose: 1,000 mg Documented By: Admin: 06/30/24 20:50 Dose: 1,000 mg Documented By: Admin: 06/30/24 12:09 Dose: 1,000 mg Documented By: Admin: 06/30/24 05:44 Dose: 1,000 mg Documented By: Admin: 06/29/24 20:47 Dose: 1,000 mg Documented By: Admin: 06/29/24 13:37 Dose: 1,000 mg Documented By: Admin: 06/29/24 03:49 Dose: 1,000 mg Documented By: Admin: 06/28/24 20:43 Dose: 1,000 mg Documented By: VANESSAB Aspirin (Aspirin 81 Mg Ectab) 81 mg PO QAM NAINA Stop: 07/29/24 08:59 Last Admin: 07/03/24 09:02 Dose: 81 mg Documented By: Admin: 07/02/24 09:00 Dose: Not Given Documented By: Admin: 07/01/24 08:53 Dose: 81 mg Documented By: Admin: 06/30/24 08:08 Dose: 81 mg Documented By: Admin: 06/29/24 09:54 Dose: 81 mg Documented By: Atorvastatin Calcium (Atorvastatin 40 Mg Tab) 40 mg PO QAM NAINA Stop: 07/29/24 08:59 Last Admin: 07/03/24 09:02 Dose: 40 mg Documented By: Admin: 07/02/24 09:00 Dose: Not Given Documented By: Admin: 07/01/24 08:54 Dose: 40 mg Documented By: Admin: 06/30/24 08:09 Dose: 40 mg Documented By: Admin: 06/29/24 09:57 Dose: 40 mg Documented By: Cyanocobalamin (Cyanocobalamin (B-12) 100 Mcg Tablet) 100 mcg PO QA NAINA Stop: 07/29/24 08:59 Last Admin: 07/03/24 09:01 Dose: 100 mcg Documented By: Admin: 07/02/24 09:00 Dose: Not Given Documented By: Admin: 07/01/24 08:53 Dose: 100 mcg Documented By: Admin: 06/30/24 08:09 Dose: 100 mcg Documented By: Admin: 06/29/24 09:57 Dose: 100 mcg Documented By: Docusate Sodium (Docusate Sodium 100 Mg Cap) 100 mg PO BID NAINA Stop: 08/01/24 20:59 Last Admin: 07/03/24 09:09 Dose: 100 mg Documented By: Admin: 07/02/24 20:34 Dose: 100 mg Documented By: KRISTI Enoxaparin Sodium (Enoxaparin Inj 40 Mg/0.4 Ml Syr) 40 mg SQ QAM NAINA Stop: 07/29/24 08:59 Last Admin: 07/03/24 09:03 Dose: 40 mg Documented By: Admin: 07/01/24 08:55 Dose: 40 mg Documented By: Admin: 06/30/24 08:09 Dose: 40 mg Documented By: Admin: 06/29/24 09:54 Dose: 40 mg Documented By: Ergocalciferol (Ergocalciferol 1250 Mcg (50,000 Units) Cap) 1,250 mcg PO Q7D [facility] Stop: 07/31/24 08:44 Last Admin: 07/01/24 13:23 Dose: 1,250 mcg Documented By: KARI Fluticasone/Vilanterol (Fluticasone/Vilanterol 100/25mcg 14 Puffs/Inhaler) 1 puffs INH DAILY NAINA Stop: 07/28/24 19:59 Last Admin: 07/03/24 09:00 Dose: 1 puffs Documented By: Admin: 07/02/24 17:17 Dose: 1 puffs Documented By: Admin: 07/01/24 08:56 Dose: 1 puffs Documented By: Admin: 06/30/24 08:09 Dose: 1 puffs Documented By: Admin: 06/29/24 09:53 Dose: 1 puffs Documented By: Admin: 06/28/24 21:06 Dose: 1 puffs Documented By: PHILIPP Hydromorphone HCl (Hydromorphone Inj 1 Mg/Ml Syringe) 1 mg IV Q4H PRN PRN Reason: Pain Stop: 07/16/24 16:45 Last Admin: 07/03/24 11:05 Dose: 1 mg Documented By: Admin: 07/02/24 17:14 Dose: 1 mg Documented By: KARI Levothyroxine Sodium (Levothyroxine Sodium 175 Mcg Tablet) 175 mcg PO DAILYBB [facility] Stop: 07/29/24 06:29 Last Admin: 07/03/24 05:40 Dose: 175 mcg Documented By: Admin: 07/02/24 06:11 Dose: 175 mcg Documented By: Admin: 07/01/24 05:23 Dose: 175 mcg Documented By: Admin: 06/30/24 05:45 Dose: 175 mcg Documented By: Admin: 06/29/24 07:01 Dose: 175 mcg Documented By: Losartan Potassium (Losartan Potassium 25 Mg Tab) 25 mg PO DAILY NAINA Stop: 07/29/24 08:59 Last Admin: 06/30/24 08:08 Dose: 25 mg Documented By: Admin: 06/29/24 09:57 Dose: 25 mg Documented By: Magnesium Oxide (Magnesium Oxide 400 Mg Tab) 400 mg PO [facility] Stop: 07/31/24 08:59 Last Admin: 07/03/24 09:01 Dose: 400 mg Documented By: Admin: 07/02/24 09:00 Dose: Not Given Documented By: Admin: 07/01/24 13:23 Dose: 400 mg Documented By: KARI Metoprolol Succinate (Metoprolol Succ 50mg Ext Rel Tab) 50 mg PO [facility] Stop: 07/29/24 08:59 Last Admin: 07/03/24 09:02 Dose: 50 mg Documented By: Admin: 07/02/24 09:00 Dose: Not Given Documented By: Admin: 07/01/24 08:53 Dose: 50 mg Documented By: Admin: 06/30/24 08:08 Dose: 50 mg Documented By: Admin: 06/29/24 09:56 Dose: 50 mg Documented By: Morphine Sulfate (Morphine Sulfate 2 Mg/Ml Carp) 2 mg IV Q3H PRN PRN Reason: Severe Pain (Scale 7, 8, 9,10) Stop: 07/12/24 19:44 Last Admin: 07/01/24 19:54 Dose: 2 mg Documented By: Admin: 06/30/24 20:50 Dose: 2 mg Documented By: Admin: 06/30/24 09:58 Dose: 2 mg Documented By: Admin: 06/29/24 17:08 Dose: 2 mg Documented By: Admin: 06/29/24 14:16 Dose: 2 mg Documented By: CAROLINA Ondansetron HCl (Ondansetron Inj 2 Mg/Ml 2 Ml Vial) 4 mg IV Q6H PRN PRN Reason: Nausea Stop: 07/28/24 19:44 Last Admin: 07/02/24 21:14 Dose: 4 mg Documented By: KRISTI Oxycodone HCl (Oxycodone Hcl Ir 5 Mg Tab (Immediate Release)) 5 - 10 mg PO Q4H PRN PRN Reason: Pain or Pre PT Stop: 07/16/24 16:45 Last Admin: 07/03/24 09:09 Dose: 10 mg Documented By: Admin: 07/02/24 19:45 Dose: 10 mg Documented By: KRISTI Pantoprazole Sodium (Pantoprazole 40 Mg Tab) 20 mg PO [facility] Stop: 07/29/24 08:59 Last Admin: 07/03/24 09:01 Dose: 20 mg Documented By: Admin: 07/02/24 09:00 Dose: Not Given Documented By: Admin: 07/01/24 08:53 Dose: 20 mg Documented By: Admin: 06/30/24 08:08 Dose: 20 mg Documented By: Admin: 06/29/24 09:54 Dose: 20 mg Documented By: Thiamine HCl (Thiamine Hcl 100 Mg Tab) 100 mg PO [facility] Stop: 07/29/24 08:59 Last Admin: 07/03/24 09:02 Dose: 100 mg Documented By: Admin: 07/02/24 09:00 Dose: Not Given Documented By: Admin: 07/01/24 08:53 Dose: 100 mg Documented By: Admin: 06/30/24 08:08 Dose: 100 mg Documented By: Admin: 06/29/24 09:54 Dose: 100 mg Documented By: Umeclidinium [place] (Umeclidinium [place] 62.5mcg/Blister 7 Puffs/Inhaler) 1 puffs INH [facility] Stop: 07/28/24 19:59 Last Admin: 07/03/24 09:00 Dose: 1 puffs Documented By: Admin: 07/02/24 17:18 Dose: 1 puffs Documented By: Admin: 07/01/24 08:56 Dose: 1 puffs Documented By: Admin: 06/30/24 08:09 Dose: 1 puffs Documented By: Admin: 06/29/24 09:54 Dose: 1 puffs Documented By: Admin: 06/28/24 21:06 Dose: 1 puffs Documented By: PHILIPP Vitamin D (Cholecalciferol 125 Mcg (5,000 Units) Tab) [facility] [place] Stop: 07/29/24 11:14 Last Admin: 07/03/24 09:12 Dose: 125 mcg Documented By: Admin: 06/30/24 08:08 Dose: 125 mcg Documented By: Admin: 06/29/24 15:39 Dose: 125 mcg Documented By: BOGDAN Discontinued Medications Acetaminophen (Acetaminophen 500 Mg Tab) 1,000 mg PO NOW STA Stop: 06/28/24 13:35 Last Admin: 06/28/24 13:55 Dose: 1,000 mg Documented By: NAA Albuterol (Albut/Ipratrop 3mg/0.5mg Neb 3 Ml Vial) 3 ml NEB NOW STA; Protocol Stop: 06/28/24 20:00 Last Admin: 06/28/24 20:42 Dose: 3 ml Documented By: PHILIPP Fentanyl Citrate (Fentanyl Citrate Pf 100 Mcg/2 Ml Vial) 50 mcg IV NOW STA Stop: 06/28/24 15:35 Last Admin: 06/28/24 15:43 Dose: 50 mcg Documented By: REGAN Fentanyl Citrate (Fentanyl Citrate Pf 100 Mcg/2 Ml Vial) 50 mcg IV NOW STA Stop: 06/28/24 16:09 Last Admin: 06/28/24 15:56 Dose: 50 mcg Documented By: REGAN Fentanyl Citrate (Fentanyl Citrate Pf 100 Mcg/2 Ml Vial) 50 mcg IV Q5M PRN PRN Reason: PACU Use Only-Pain Stop: 07/02/24 19:07 Last Admin: 07/02/24 15:38 Dose: 50 mcg Documented By: Admin: 07/02/24 15:22 Dose: 50 mcg Documented By: Admin: 07/02/24 15:15 Dose: 50 mcg Documented By: RAND Gabapentin (Gabapentin 600 Mg Tab) 1,200 mg PO NOW ONE Stop: 06/28/24 20:01 Last Admin: 06/28/24 20:43 Dose: 1,200 mg Documented By: PHILIPP Gabapentin (Gabapentin 600 Mg Tab) 600 mg PO Q6H NAINA Stop: 06/29/24 12:01 Last Admin: 06/29/24 13:37 Dose: 600 mg Documented By: Admin: 06/29/24 07:01 Dose: 600 mg Documented By: Gabapentin (Gabapentin 600 Mg Tab) 600 mg PO Q8H NAINA Stop: 06/30/24 14:01 Last Admin: 06/30/24 14:47 Dose: 600 mg Documented By: Admin: 06/30/24 05:45 Dose: 600 mg Documented By: Admin: 06/29/24 21:18 Dose: 600 mg Documented By: JUNIOR Gabapentin (Gabapentin 600 Mg Tab) 600 mg PO Q12H NAINA Stop: 07/01/24 12:01 Last Admin: 07/01/24 13:27 Dose: 600 mg Documented By: Admin: 07/01/24 01:33 Dose: 600 mg Documented By: JUNIOR Gabapentin (Gabapentin 600 Mg Tab) 600 mg PO Q24H NAINA Stop: 07/02/24 12:01 Last Admin: 07/02/24 17:59 Dose: Not Given Documented By: KARI Sodium Chloride (Nss) 1,000 mls @ 80 mls/hr IV .[id number] ONE Stop: 06/30/24 21:15 Last Infusion: 06/30/24 21:52 Dose: Infused Documented By: Admin: 06/30/24 09:22 Dose: 80 mls/hr Documented By: NOEMY Cefazolin Sodium (Ancef 2000mg) 2,000 mg in 15 mls @ 3.75 mls/min IV PREOP ONE; Protocol Stop: 07/02/24 06:03 Last Admin: 07/02/24 12:13 Dose: 3.75 mls/min Documented By: [id number] Tranexamic Acid (Tranexamic Acid / 0.7% Nacl) 1,000 mg in 100 mls @ 600 mls/hr IV PREOP ONE Stop: 07/02/24 06:09 Last Infusion: 07/02/24 12:21 Dose: Infused Documented By: Admin: 07/02/24 12:10 Dose: 600 mls/hr Documented By: [id number] Cefazolin Sodium (Ancef 1000mg) 1,000 mg in 7.5 mls @ 2.5 mls/min IV Q8H NAINA; Protocol Stop: 07/03/24 05:17 Last Admin: 07/03/24 05:40 Dose: 2.5 mls/min Documented By: Admin: 07/02/24 20:34 Dose: 2.5 mls/min Documented By: KRISTI Tranexamic Acid (Tranexamic Acid / 0.7% Nacl) 1,000 mg in 100 mls @ 600 mls/hr IV Q6H NAINA Stop: 07/02/24 21:24 Last Infusion: 07/02/24 20:45 Dose: Infused Documented By: Admin: 07/02/24 20:35 Dose: 600 mls/hr Documented By: KRISTI Ketamine HCl (Ketamine Hcl 10mg/Ml Syr) Confirm Administered Dose 150 mg .ROUTE .STK-MED ONE Stop: 06/28/24 15:13 Last Admin: 06/28/24 16:30 Dose: Not Given Documented By: REGAN Ketamine HCl (Ketamine Hcl 10mg/Ml Syr) 40 mg IV TODAY@1545 ONE Stop: 06/28/24 15:46 Last Admin: 06/28/24 16:29 Dose: 40 mg Documented By: AARTI Ketamine HCl (Ketamine Hcl 10mg/Ml Syr) 40 mg IV NOW ONE Stop: 06/28/24 17:43 Last Admin: 06/28/24 16:57 Dose: 40 mg Documented By: AARTI Ketorolac Tromethamine (Ketorolac Tromethamine 15 Mg/Ml Vial) 10 mg IV ONE ONE Stop: 06/29/24 14:53 Last Admin: 06/29/24 15:24 Dose: 10 mg Documented By: BOGDAN Morphine Sulfate (Morphine Sulfate 2 Mg/Ml Carp) Confirm Administered Dose 2 mg .ROUTE .STK-MED ONE Stop: 06/28/24 15:50 Last Admin: 06/28/24 15:50 Dose: 2 mg Documented By: REGAN Morphine Sulfate (Morphine Sulfate 2 Mg/Ml Carp) 2 mg IV NOW STA Stop: 06/28/24 16:09 Last Admin: 06/28/24 16:24 Dose: Not Given Documented By: REGAN Morphine Sulfate (Morphine Sulfate 4 Mg/Ml 1 Ml Carp\\Vial) 4 mg IV NOW STA Stop: 06/28/24 16:51 Last Admin: 06/28/24 17:08 Dose: 4 mg Documented By: REGAN Morphine Sulfate (Morphine Sulfate 4 Mg/Ml 1 Ml Carp\\Vial) 4 mg IV NOW STA Stop: 06/28/24 17:43 Last Admin: 06/28/24 16:56 Dose: 4 mg Documented By: REGAN Morphine Sulfate (Morphine Sulfate 2 Mg/Ml Carp) 1 mg IV Q6H PRN PRN Reason: Severe Pain (Scale 7, 8, 9,10) Stop: 07/12/24 19:44 Last Admin: 06/29/24 10:07 Dose: 1 mg Documented By: Ondansetron HCl (Ondansetron Inj 2 Mg/Ml 2 Ml Vial) 4 mg IV NOW STA Stop: 06/28/24 15:35 Last Admin: 06/28/24 15:42 Dose: 4 mg Documented By: REGAN Ondansetron HCl (Ondansetron Inj 2 Mg/Ml 2 Ml Vial) 4 mg IV NOW STA Stop: 06/28/24 16:09 Last Admin: 06/28/24 16:57 Dose: 4 mg Documented By: REGAN Ondansetron HCl (Ondansetron Inj 2 Mg/Ml 2 Ml Vial) 4 mg IV NOW STA Stop: 06/28/24 17:14 Last Admin: 06/28/24 17:35 Dose: 4 mg Documented By: REGAN Ondansetron HCl (Ondansetron Inj 2 Mg/Ml 2 Ml Vial) 4 mg IV ONCE PRN PRN Reason: PACU Use Only-Nausea/Vomiting Stop: 07/02/24 19:07 Last Admin: 07/02/24 15:10 Dose: 4 mg Documented By: RAND Oxycodone HCl (Oxycodone Hcl Ir 5 Mg Tab (Immediate Release)) 5 mg PO NOW STA Stop: 06/28/24 13:35 Last Admin: 06/28/24 13:55 Dose: 5 mg Documented By: NAA Oxycodone HCl (Oxycodone Hcl Ir 5 Mg Tab (Immediate Release)) 5 mg PO Q4H PRN PRN Reason: Moderate Pain (Scale 4, 5, 6) Stop: 07/12/24 19:44 Last Admin: 07/02/24 04:27 Dose: 5 mg Documented By: Admin: 07/01/24 18:04 Dose: 5 mg Documented By: Admin: 07/01/24 05:24 Dose: 5 mg Documented By: Admin: 06/30/24 16:19 Dose: 5 mg Documented By: Admin: 06/30/24 08:16 Dose: 5 mg Documented By: NOEMY Propofol (Propofol Iv Emulsion 10 Mg/Ml 20 Ml Vial) Confirm Administered Dose 200 mg IV .STK-MED ONE Stop: 06/28/24 16:44 Last Admin: 06/28/24 17:33 Dose: Not Given Documented By: REGAN Tranexamic Acid (Tranexamic Acid / 0.7% Nacl 1000mg/100ml Bag) Confirm Administered Dose 1,000 mg IV .STK-MED ONE Stop: 07/02/24 10:11 Last Admin: 07/02/24 17:59 Dose: Not Given Documented By: KARI Vancomycin HCl (Vancomycin Hcl 1000mg/20ml Vial) Confirm Administered Dose 50 mg .ROUTE .STK-MED ONE Stop: 07/02/24 14:10 Last Admin: 07/02/24 14:14 Dose: 50 mg Documented By: PSS Imaging Data Radiologist's Impression: Ankle X-Ray 06/28/24 13:34 INDICATION: Pain and injury. TECHNIQUE: 3 views of the right tibia/fibula. 3 views of the right ankle. 3 views of the right foot. COMPARISON: No relevant priors. FINDINGS: Evaluation of the right tibia/fibula, right foot and the right ankle. Displaced distal fibular shaft fracture. Displaced medial malleolus fracture. Lateral/anterior subluxation of the talus with respect to the distal tibia. Remaining osseous structures intact. Soft tissue swelling. IMPRESSION: Displaced distal fibular shaft fracture. Displaced medial malleolus fracture. Lateral/anterior subluxation of the talus with respect to the distal tibia. Electronically signed by Noel Monte 06-28-2024 2:27 PM Foot X-Ray 06/28/24 13:34 INDICATION: Pain and injury. TECHNIQUE: 3 views of the right tibia/fibula. 3 views of the right ankle. 3 views of the right foot. COMPARISON: No relevant priors. FINDINGS: Evaluation of the right tibia/fibula, right foot and the right ankle. Displaced distal fibular shaft fracture. Displaced medial malleolus fracture. Lateral/anterior subluxation of the talus with respect to the distal tibia. Remaining osseous structures intact. Soft tissue swelling. IMPRESSION: Displaced distal fibular shaft fracture. Displaced medial malleolus fracture. Lateral/anterior subluxation of the talus with respect to the distal tibia. Electronically signed by Noel Monte 06-28-2024 2:27 PM Tibia/Fibula X-Ray 06/28/24 13:34 INDICATION: Pain and injury. TECHNIQUE: 3 views of the right tibia/fibula. 3 views of the right ankle. 3 views of the right foot. COMPARISON: No relevant priors. FINDINGS: Evaluation of the right tibia/fibula, right foot and the right ankle. Displaced distal fibular shaft fracture. Displaced medial malleolus fracture. Lateral/anterior subluxation of the talus with respect to the distal tibia. Remaining osseous structures intact. Soft tissue swelling. IMPRESSION: Displaced distal fibular shaft fracture. Displaced medial malleolus fracture. Lateral/anterior subluxation of the talus with respect to the distal tibia. Electronically signed by Noel Monte 06-28-2024 2:27 PM Ankle X-Ray 06/28/24 15:39 INDICATION: Postreduction evaluation. TECHNIQUE: 2 views of the right ankle. COMPARISON: Radiograph from the same day. FINDINGS/IMPRESSION: Cast obscures fine bony detail. Improved alignment of the ankle mortise with some residual lateral subluxation of the tibiotalar joint. Displaced medial malleolus and distal fibular fractures again noted, some improved alignment however. Electronically signed by Noel Monte 06-28-2024 4:24 PM Discharge Plan Visit Data Chief Complaint: Fall Stated Complaint: FALL, HIT RT LEG ED Provider: Marlo Chu ED Midlevel Provider: Dana Grimm Discharge Problem: Closed right ankle fracture, Alcohol dependence Patient Disposition: Admitted As Inpatient Discharge Instructions Interventions: ED Discharge Assessment Last Done: 06/28/24 19:44
[2024-06-28] MEDS: oxyCODONE HCL IR 5 MG TAB (IMMEDIATE RELEASE) PO STA (13:55)
[2024-06-28] MEDS: ACETAMINOPHEN 500 MG TAB PO STA (13:55)
--- NOTE | 2024-06-28 14:28 | XRay Report ---
INDICATION: Pain and injury. TECHNIQUE: 3 views of the right tibia/fibula. 3 views of the right ankle. 3 views of the right foot. COMPARISON: No relevant priors. FINDINGS: Evaluation of the right tibia/fibula, right foot and the right ankle. Displaced distal fibular shaft fracture. Displaced medial malleolus fracture. Lateral/anterior subluxation of the talus with respect to the distal tibia. Remaining osseous structures intact. Soft tissue swelling. IMPRESSION: Displaced distal fibular shaft fracture. Displaced medial malleolus fracture. Lateral/anterior subluxation of the talus with respect to the distal tibia. Electronically signed by Noel Monte 06-28-2024 2:27 PM
[2024-06-28] MEDS: ONDANSETRON INJ 2 MG/ML 2 ML VIAL IV STA ×3 (15:42→17:35)
[2024-06-28] MEDS: fentaNYL citrate PF 100 MCG/2 ML VIAL IV STA ×2 (15:43→15:56)
[2024-06-28] MEDS: MoRPHine SULFATE 2 MG/ML CARP ONE (15:50)
--- NOTE | 2024-06-28 16:10 | Emergency Department Note ---
Pre Sedation Assessment Vital Signs Temp Pulse Resp BP Pulse Ox O2 Del Method O2 Flow Rate 06/28/24 15:56 Nasal Cannula 6 06/28/24 15:51 Nasal Cannula 6 06/28/24 15:46 Nasal Cannula 6 06/28/24 15:41 Nasal Cannula 6 06/28/24 15:39 91 H 06/28/24 15:35 82 10 L 158/73 H 93 Nasal Cannula 2 06/28/24 12:00 36.6 C 105 H 18 117/78 93 Room Air Cardiovascular RRR, no murmur, no edema Respiratory normal respiratory effort, lungs clear to auscultation Pre-Sedation Airway Assessment Smoking Status: Former smoker Short, Thick Neck: Yes Thyromental Distance: > or= 3.5 Finger Breadths Oral Cavity: + Dentures Mallampati Class: I ASA: ASA2 NPO Status Date of Last Intake of Fluids: 06/28/24 Time of Last Intake of Fluids: 14:00 Last Oral Intake of Fluids Comment: Sip of water with medications Date of Last Intake of Solid Food: 06/27/24 Notes The planned sedation has been discussed with the patient. Informed Consent was obtained. I have identified the patient, determined the appropriateness of sedation and have assessed the patient immediately prior to the procedure. All medicine(s) and interventions are by my order.
--- NOTE | 2024-06-28 16:11 | Emergency Department Note ---
ED Visit Note Procedural Sedation Indication: R ankle fracture. Total time: 15 minutes. Written consent was obtained after the risks and benefits were explained to the patient, including, but not limited to aspiration, allergic reaction, breathing difficulties, cardiac complications, vomiting, pain, event recall, bleeding, and/or infection. Pre-sedation examination and paperwork completed. The patient was on 100% oxygen via NRB prior to the procedure. Continous end tidal CO2 monitoring, pulse oximetry, and cardiac monitoring were utilized. Suction, airway equipment, medications, respiratory equipment, and appropriate personnel were prepared prior to the initiation of the procedure. A time out was taken. Sedation was achieved utilizing 40 mg of ketamine. After I observed the patient had reached the appropriate level of sedation the main procedure was performed without complication. Sedation was discontinued and the monitoring continued. The patient recovered quickly from the effects of the medication without complication or adverse event. .
--- NOTE | 2024-06-28 16:11 | Emergency Department Note ---
Post Sedation Assessment Vital Signs Temp Pulse Resp BP Pulse Ox O2 Del Method O2 Flow Rate 06/28/24 15:56 Nasal Cannula 6 06/28/24 15:51 Nasal Cannula 6 06/28/24 15:46 Nasal Cannula 6 06/28/24 15:41 Nasal Cannula 6 06/28/24 15:39 91 H 06/28/24 15:35 82 10 L 158/73 H 93 Nasal Cannula 2 06/28/24 12:00 36.6 C 105 H 18 117/78 93 Room Air Recovery Score Activity: Moves 4 extremities Post Sedation Plan On clinical assessment, the patient appears to have tolerated the sedation without complications. Patient is recovering as anticipated. Patient will continue to be monitored by nursing and may be discharged when sedation discharge criteria are met per below protocol. Upon Completions of procedure up to 15 minutes continue every 5 minute vital signs and the P.A.R. score; then discharge to a Phase I or Fast Track to Phase II per the following guidelines: * Discharge Patient to appropriate Phase II area if PAR is 8 or greater or return to pre- procedure baseline. The post - procedure orders will be as directed. * If PAR score is less than 8 or not return to pre-procedure baseline then patient will follow Phase I monitoring till PAR is reached for Phase II. The Phase I may be done in procedure room or may call to secure a Phase I area. * If naloxone or flumazenil are used for reversal, hold in Phase I for continued monitoring from when last reversal dose was given for a minimum of 60 minutes or longer pending the nurse and/or physician discretion of patient condition before discharge to Phase II. Please call the Sedation Physician to re-evaluate and complete post-note for discharge to Phase II area. Do NOT discharge from procedure sedation or Phase 1 until post- sedation evaluation note is complete by procedure /sedation MD Sedation Discharge Instructions to be given to the patient at discharge to home. Sedation Data Sedation Times Sedation Start Date: 06/28/24 Sedation Start Time: 15:45 Procedure Times Procedure Start Time:: 15:47 Procedure End Time: 16:02
[2024-06-28] MEDS: MoRPHine SULFATE 2 MG/ML CARP IV STA (16:24)
--- NOTE | 2024-06-28 16:24 | XRay Report ---
INDICATION: Postreduction evaluation. TECHNIQUE: 2 views of the right ankle. COMPARISON: Radiograph from the same day. FINDINGS/IMPRESSION: Cast obscures fine bony detail. Improved alignment of the ankle mortise with some residual lateral subluxation of the tibiotalar joint. Displaced medial malleolus and distal fibular fractures again noted, some improved alignment however. Electronically signed by Noel Monte 06-28-2024 4:24 PM
[2024-06-28] MEDS: KETAMINE HCL 10MG/ML SYR IV ONE ×2 (16:29→16:57)
[2024-06-28] MEDS: KETAMINE HCL 10MG/ML SYR ONE (16:30)
--- NOTE | 2024-06-28 16:43 | History & Physical Report ---
Date of Service June 28, 2024 Assessment & Plan (1) Closed right ankle fracture: (2) Acute hypoxemic respiratory failure: (3) COPD (chronic obstructive pulmonary disease): (4) Alcohol dependence: Plan Ms. Ovalle is a 69 year old woman with past medical history remarkable HTN, HLD, alcohol dependence, lumbar radiculopathy, and hypothyroidism admitted for pain management iso bimalleolar ankle fracture #Right bimalleolar ankle fracture s/p closed reduction in ED x 2 #Mechanical fall Reports tripping over dog splinted in ED by orth PT/OT, NWB to RLE Unable to go home iso uncontrolled pain and concern for mobility schedule tylenol Trial gabapentin for prevention of etoh withdrawal symptoms as well as pain control oxy for moderate pain prn, IV morphine for severe Ortho consulted: will likely require surgical intervention in 7-14 days if not sooner Keep splint clean and dry narcan prn iso multiple opioid agents administered in ED #Alcohol dependence: Last drink last evening 06/27, drinks 3 vodka mixed drinks a day Does not wish to quit nor wants resources Will start gabapentin while admitted for pain and withdrawal management at this time ativan prn, AWSS monitor on tele #Acute hypoxic resp failure, suspect iso missed inhaler, multiple opioids admin, and pain #COPD (chronic obstructive pulmonary disease) #tobacco use chronic, stable does not wear supplemental O2 at baseline, does not wear CPAP at bedtime does not wish to quit smoking declines nicotine counseled continue trelegy (formulary alternative) duonebs prn IS encouraged narcan if resp depression noted #Hypertension: continue losartan and metoprolol # HLD (hyperlipidemia): continue Lipitor #Hypothyroidism: recently increased to 125mcg daily discussed proper administration at home, verbalized understanding continue home Synthroid #Lumbar radicular pain, LEFT L5/S1 pattern S/P lumbar laminectomy follows pain management, not on chronic opioids or other regimen undergoing eval for TERESA Gabapentin above can aid for pain management DVT ppx lovenox admit med tele given concern for withdrawal PT/OT for dispo planning Admission and Anticipated Discharge Date Admission Date: Time spent evaluating patient, direct bedside care, chart review, placing orders, interpretation of diagnostic studies, discussion with consultants, patient, and family members, as well as other required patient management activities is 75 minutes. History of Present Illness Chief Complaint: Mechanical Fall, Right ankle pain Primary Care Provider: Liliane Pena DO Ms. Ovalle is a 69 year old woman with past medical history remarkable HTN, HLD, alcohol dependence, lumbar radiculopathy, and hypothyroidism who presented to [facility] ED due to right ankle pain after mechanical fall . Patient states she has been in her usual state of health with no concerns. Today, she went to left her dogs out and followed them into the backyard to "keep an eye on them." She turned around to return back into her home when she tripped over one of her dogs and in an attempt to not fall, she stepped, rolled her ankle, and subsequently felt notable pain. She underwent reduction two times in the ED--once by ED physician, and additional time by ortho. Patient states she has no other concerns outside of extreme pain. She takes her medications as prescribed. She smokes about 3 cigarettes a day, but does not wish to discuss further. She also drinks approximately 3 vodka/tonics a day. Her last drink was 06/27. She states she has never had complications with her use and does not wish to quit. Agreeable for gabapentin while admitted for withdrawal management as well as additional pain modality. In the ED, vitals were notable for BP of up to 200 iso pain/reduction, down to 110s s/p multiple analgesic agents, HR of 6-90s, and O2 sat of 90s on NC Imaging revealed displaced distal fibular fracture, medial malleolus fraction, and talus subluxation EKG NSR qtc 466 ED interventions: oxy 5mg, ketamine total 80mg, 100mcg fentanyl total, morphine 10mg total Consultants: Ortho--s/p closed reduction Patient to be admitted to [facility] for further evaluation and management of right closed bimalleolar fracture and pain management Allergies Allergy/AdvReac Type Severity Reaction Status Date / Time venlafaxine Allergy Severe severe Verified 08/08/22 08:29 cough, throat tightness nickel Allergy Mild Rash Verified 08/08/22 08:29 Home Medications Medication Instructions Recorded Confirmed Type pantoprazole 20 mg tablet,delayed 20 mg PO QAM 07/06/20 06/28/24 History release cyanocobalamin (vitamin B-12) 100 100 mcg PO QAM 09/13/21 06/28/24 History mcg tablet fluticasone fur. 100 mcg-umeclid 1 inh inhalation QAM 09/13/21 06/28/24 History 62.5 mcg-vilant 25 mcg inhalat.powder (Trelegy Ellipta) aspirin 81 mg capsule 81 mg PO QAM 07/23/22 06/28/24 History diclofenac sodium 1 % topical gel 2 g topical QID PRN neck pain 07/23/22 06/28/24 History atorvastatin 40 mg tablet 40 mg PO QAM 06/28/24 06/28/24 History levothyroxine 125 mcg tablet 175 mcg PO DAILYBB 06/28/24 06/28/24 History losartan 25 mg tablet 25 mg PO DAILY 06/28/24 06/28/24 History metoprolol succinate 50 mg 50 mg PO QAM 06/28/24 06/28/24 History tablet,extended release 24 hr Past Med/Surg History Problem List (Updated 06/28/24 @ 20:01 by Kristi Shannon MD) Closed right ankle fracture (Acute) Difficult airway for intubation Postoperative hematoma Myelopathy concurrent with and due to spinal stenosis of cervical region Encounter for pre-operative examination Sepsis (Acute) Hypoxia (Acute) Acute hypoxemic respiratory failure Left arm pain Cervical spine disease Hypoxemia (Acute) Hypertension controlled, stable per pt Hypothyroidism HLD (hyperlipidemia) COPD (chronic obstructive pulmonary disease) (Acute) inhaler daily and prn with exertion such as a flight of stairs, average 1-2 times weekly Alcohol dependence (Acute) no longer drinks beer, however 3 vodka cocktails daily Medical History (Updated 06/28/24 @ 20:01 by Kristi Shannon MD) Pleurisy last episode 3 yrs ago Chronic neck pain Chronic back pain Hepatic steatosis SANDRA (obstructive sleep apnea) pt states she had sleep study test done was ok--no device Tobacco abuse disorder GERD (gastroesophageal reflux disease) controlled, stable per pt Surgical History History of bilateral tubal ligation History of lumbar surgery History of tooth extraction all top teeth removed and some on bottom History of wisdom tooth extraction History of thoracotomy 1980 @ [facility]--and right lung with chest tube placement--per pt was due to intermittent spontaneous pneumothorax of right lung---pt states she gets intermittent pleurisy (last time was 3 yrs ago) History of colonoscopy History of esophagogastroduodenoscopy (EGD) Family History Mother Pancreatic cancer Father , fatal [place] @ 42 Myocardial infarction Other No family history of adverse response to anesthesia Social History (Updated 06/28/24 @ 20:02 by Kristi Shannon MD) Smoking Status: Current every day smoker Cigarettes Per Day: 3; Second Hand Exposure: No; Do You Dip or Chew Tobacco: No; Hx Alcohol Use: Yes (no more beer, 3 vodka cocktails daily ) Alcohol type: hard liquor Alcohol Intake Frequency: 4 or More x per/Week Hx Substance Use: Yes (smokes marijuana (advised on policy)) Last Used Substance: Hours (ago) Last Used Substance Other:: uses every night to help sleep Preferred Language: Luxembourgish Communication Ability: Unable Building Rigger Required: No Beliefs That Will Affect Care: None marital status: Current Living Situation: Spouse Feels Safe at Home: Yes Assistive Devices: None Review of Systems Review of Systems: Constitutional: (-) fever/chills, (-) recent loss of weight, (-) appetite changes, (-) night sweats. Head: (-) headache, (-) dizziness. Eye: (-) blurring of vision, (-) double vision, (-) redness. Ear: (-) hearing loss, (-) discharge, (-) vertigo Nose: (-) discharge, (-) bleeding, (-) congestion, (-) post nasal drip. Throat: (-) sore throat, (-) hoarseness of voice, (-) odynophagia. Cardiovascular: (-) chest pain, (-) palpitations, (-) syncope, (-) orthopnea, (- ) PND, (-) leg swelling. Respiratory: (-) shortness of breath, (-) cough, (-) wheezing, (-) hemoptysis. Neuro: (-) weakness in extremities, (-) numbness, (-) tingling, (-) tremor. Gastrointestinal: (-) belly pain, (-) belly distension, (-) nausea, (-) vomiting, (-) diarrhea, (-) constipation, Genitourinary: (-) hematuria, (-) dysuria, (-) polyuria, (-) hesitancy, (-) frequency, (-) urinary incontinence. Musculoskeletal: (-) myalgia, (-) arthralgia. Skin: (-) rashes. Endocrine: (-) heat/cold intolerance. Psychiatry: (-) depression, (-) hallucination. Physical Exam Physical Exam: GENERAL APPEARANCE: AxOx4, mildly uncomfortable female, no acute distress s/p reduction. HEENT: NC, AT. MMM. EOMI, clear conjunctiva, oropharynx clear. NECK: Supple without lymphadenopathy. No stiffness or restricted ROM. HEART: Normal rate and regular rhythm, normal S1/S1, no m/r/g LUNGS: CTAB, moving air well. No crackles or wheezes are heard. ABDOMEN: Soft, nontender, nondistended with good bowel sounds heard. BACK: No CVAT, no obvious deformity. EXTREMITIES: Without cyanosis, clubbing or edema. right extremity in splint NEUROLOGICAL: Grossly nonfocal. Alert and oriented, moving all 4 extremities. CN not formally tested but appear grossly intact Skin: Warm and dry without any rash. Results & Data Results & Data Vital Signs (Past 12 Hours) Vital Signs Temp Pulse Resp BP BP Pulse Ox O2 Del Method 06/28/24 16:30 86 16 156/81 H 94 Nasal Cannula 06/28/24 16:25 82 11 L 135/75 93 Nasal Cannula 06/28/24 16:20 83 14 130/66 91 Nasal Cannula 06/28/24 16:15 87 12 143/71 H 92 Nasal Cannula 06/28/24 16:10 87 13 143/68 H 91 Nasal Cannula 06/28/24 16:06 94 H 14 171/107 H 94 Nasal Cannula 06/28/24 16:01 93 H 23 181/83 H 94 Nasal Cannula 06/28/24 15:56 108 H 12 202/121 H 96 Nasal Cannula 06/28/24 15:51 105 H 16 219/109 H 94 Nasal Cannula 06/28/24 15:46 91 H 14 150/82 H 94 Nasal Cannula 06/28/24 15:41 92 H 15 159/81 H 93 Nasal Cannula 06/28/24 15:39 91 H 06/28/24 15:35 82 10 L 158/73 H 93 Nasal Cannula 06/28/24 12:00 36.6 C 105 H 18 117/78 93 Room Air O2 Flow Rate 06/28/24 16:30 06/28/24 16:25 2 06/28/24 16:20 2 06/28/24 16:15 2 06/28/24 16:10 2 06/28/24 16:06 2 06/28/24 16:01 6 06/28/24 15:56 6 06/28/24 15:51 6 06/28/24 15:46 6 06/28/24 15:41 6 06/28/24 15:39 06/28/24 15:35 2 06/28/24 12:00 Laboratory Results Short CBC 06/28/24 Range/Units 15:45 WBC 8.90 (4.8-10.8) K/ul Hgb 13.0 (12.0-16.0) g/dl Hct 38.3 (37.0-47.0) % Plt Count 288 (130-400) K/uL BMP 06/28/24 15:45 Sodium 137 Potassium 3.5 Chloride 103 Carbon Dioxide 24 BUN 9 Creatinine 0.66 Glucose 109 H Calcium 9.2 Liver Function 06/28/24 Range/Units 15:45 Total Bilirubin 0.9 (0.2-1.0) mg/dl AST 22 (13-39) U/L ALT 27 (7-52) U/L Alkaline Phosphatase 76 (34-104) U/L Albumin 4.3 (3.4-5.0) gm/dl Diagnostic Findings Ankle X-Ray 06/28/24 13:34 INDICATION: Pain and injury. TECHNIQUE: 3 views of the right tibia/fibula. 3 views of the right ankle. 3 views of the right foot. COMPARISON: No relevant priors. FINDINGS: Evaluation of the right tibia/fibula, right foot and the right ankle. Displaced distal fibular shaft fracture. Displaced medial malleolus fracture. Lateral/anterior subluxation of the talus with respect to the distal tibia. Remaining osseous structures intact. Soft tissue swelling. IMPRESSION: Displaced distal fibular shaft fracture. Displaced medial malleolus fracture. Lateral/anterior subluxation of the talus with respect to the distal tibia. Electronically signed by Noel Monte 06-28-2024 2:27 PM Foot X-Ray 06/28/24 13:34 INDICATION: Pain and injury. TECHNIQUE: 3 views of the right tibia/fibula. 3 views of the right ankle. 3 views of the right foot. COMPARISON: No relevant priors. FINDINGS: Evaluation of the right tibia/fibula, right foot and the right ankle. Displaced distal fibular shaft fracture. Displaced medial malleolus fracture. Lateral/anterior subluxation of the talus with respect to the distal tibia. Remaining osseous structures intact. Soft tissue swelling. IMPRESSION: Displaced distal fibular shaft fracture. Displaced medial malleolus fracture. Lateral/anterior subluxation of the talus with respect to the distal tibia. Electronically signed by Noel Monte 06-28-2024 2:27 PM Tibia/Fibula X-Ray 06/28/24 13:34 INDICATION: Pain and injury. TECHNIQUE: 3 views of the right tibia/fibula. 3 views of the right ankle. 3 views of the right foot. COMPARISON: No relevant priors. FINDINGS: Evaluation of the right tibia/fibula, right foot and the right ankle. Displaced distal fibular shaft fracture. Displaced medial malleolus fracture. Lateral/anterior subluxation of the talus with respect to the distal tibia. Remaining osseous structures intact. Soft tissue swelling. IMPRESSION: Displaced distal fibular shaft fracture. Displaced medial malleolus fracture. Lateral/anterior subluxation of the talus with respect to the distal tibia. Electronically signed by Noel Monte 06-28-2024 2:27 PM Ankle X-Ray 06/28/24 15:39 INDICATION: Postreduction evaluation. TECHNIQUE: 2 views of the right ankle. COMPARISON: Radiograph from the same day. FINDINGS/IMPRESSION: Cast obscures fine bony detail. Improved alignment of the ankle mortise with some residual lateral subluxation of the tibiotalar joint. Displaced medial malleolus and distal fibular fractures again noted, some improved alignment however. Electronically signed by Noel Monte 06-28-2024 4:24 PM Medications Administered Home Medications Medication Instructions Recorded Confirmed Last Taken pantoprazole 20 mg tablet,delayed 20 mg PO QAM 07/06/20 06/28/24 08/08/22 07:00 release cyanocobalamin (vitamin B-12) 100 100 mcg PO QAM 09/13/21 06/28/24 08/07/22 07:00 mcg tablet fluticasone fur. 100 mcg-umeclid 1 inh inhalation QAM 09/13/21 06/28/2423 07:00 62.5 mcg-vilant 25 mcg inhalat.powder (Trelegy Ellipta) aspirin 81 mg capsule 81 mg PO QAM 07/23/22 06/28/24 08/07/22 09:00 diclofenac sodium 1 % topical gel 2 g topical QID PRN neck pain 07/23/22 06/28/24 08/05/22 14:00 atorvastatin 40 mg tablet 40 mg PO QAM 06/28/24 06/28/24 Unknown levothyroxine 125 mcg tablet 175 mcg PO DAILYBB 06/28/24 06/28/24 Unknown losartan 25 mg tablet 25 mg PO DAILY 06/28/24 06/28/24 Unknown metoprolol succinate 50 mg 50 mg PO QAM 06/28/24 06/28/24 Unknown tablet,extended release 24 hr (1) Closed right ankle fracture Encounter type: initial encounter Qualified Code(s): S82.891A - Other fracture of right lower leg, initial encounter for closed fracture (3) COPD (chronic obstructive pulmonary disease) COPD type: unspecified COPD Qualified Code(s): J44.9 - Chronic obstructive pulmonary disease, unspecified (4) Alcohol dependence Substance use status: unspecified alcohol-induced disorder Qualified Code(s): F10.29 - Alcohol dependence with unspecified alcohol-induced disorder
[2024-06-28] MEDS: MoRPHine SULFATE 4 MG/ML 1 ML CARP\\VIAL IV STA ×2 (16:56→17:08)
[2024-06-28 16:59] LABS: Hematocrit (blood only) 38.3 % (37.0-47.0); Mean Corpuscular Hgb Conc 33.9 g/dL (32.0-36.0); Mean Corpuscular Volume 91.2 fL (80.0-100.0); Mean Platelet Volume 9.9 fL (9.4-12.4); Platelet Count 288 K/uL (130-400); RDW Coefficient of Variation 13.6 % (11.5-14.5); RDW Standard Deviation 45.2 fL (36.4-46.3)
[2024-06-28 17:07] LABS: Albumin Globulin Ratio 1.6 (0.9-2); Albumin Level 4.3 gm/dl (3.4-5.0); BUN Creatinine Ratio 13.6 (10-20); Bilirubin,Total 0.9 mg/dl (0.2-1.0); Calcium 9.2 mg/dl (8.6-10.3); Creatinine Clr Calc Pharmacy 77.3 ml/min; Globulin 2.7 gm/dl (2.5-4.0); Magnesium 1.7 mg/dl (1.7-2.4); Phosphorus 3.1 mg/dl (2.5-4.9); Potassium 3.5 mmol/L (3.5-5.1)
--- NOTE | 2024-06-28 17:15 | Emergency Department Note ---
ED Visit Note Procedural Sedation Indication: Reduction #2 which is to be done by orthopedics team. Total time: 15 minutes. Written consent was obtained after the risks and benefits were explained to the patient, including, but not limited to aspiration, allergic reaction, breathing difficulties, cardiac complications, vomiting, pain, event recall, bleeding, and/or infection. Pre-sedation examination and paperwork completed. The patient was on 100% oxygen via NRB prior to the procedure. Continous end tidal CO2 monitoring, pulse oximetry, and cardiac monitoring were utilized. Suction, airway equipment, medications, respiratory equipment, and appropriate personnel were prepared prior to the initiation of the procedure. A time out was taken. Sedation was achieved utilizing 40 mg of ketamine. After I observed the patient had reached the appropriate level of sedation the main procedure was performed without complication. Sedation was discontinued and the monitoring continued. The patient recovered quickly from the effects of the medication without complication or adverse event. .
--- NOTE | 2024-06-28 17:30 | Orthopedic Consultation ---
Date of Consultation June 28, 2024 Assessment & Plan (1) Closed right ankle fracture: - The patient has a closed bimalleolar ankle fracture. The patient was initially reduced by the emergency department personnel, however there was still some lateral subluxation of the talus approximately 50% which would place the cartilage surfaces at increased risk for pressure necrosis as well as placing the medial skin at increased risk for pressure injury as well. The decision was made to proceed with a repeat closed reduction and splinting. This was done under sedation performed by the emergency department provider and splinting and reduction by myself. This was done with informed written consent. Please see separate procedure note for full details. -Nonweightbearing right lower extremity -Ice, elevate right lower extremity for pain and swelling -Pain control per primary -Discussion was had with the patient that this is a operative fracture given the degree of displacement and instability of the ankle. We discussed that we would like to allow soft tissues to come down and swelling in order to minimize risk of infection or wound issues around the time of surgery. -Maintain splint clean, dry, and intact -The patient is to be admitted to the hospitalist team due to her anticipated challenges with mobility at home. -We will continue to follow, anticipate operative intervention sometime in the next 7 to 14 days if not sooner. -Patient's care was discussed with Dr. Reyes who is in agreement. History of Present Illness Reason for Consultation: Right ankle fracture History of Present Illness The patient is a 69-year-old male with history of COPD, HTN, HLD who presented to the emergency department today for evaluation of a right ankle injury. The patient states that on Saturday night 06/27/2024 she was out trying to get her dogs inside when she slipped and fell on her deck the ankle was bent under her. Overnight she rested at home and she came to the emergency department today due to continued pain. She was found to have a right ankle fracture for which the orthopedic service was consulted. Prior to my arrival the emergency department providers were able to partially reduce and splint the fracture however the reduction appeared to be placing some potential for pressure on the medial aspect of the wound so I came to the bedside. Patient states that she currently has pain in her right ankle which is worse with any movement and palpation and is better with rest and immobilization. She states that her pain is better since she was splinted. She denies any pain about her right knee, hip, or foot. She denies a pain about her left lower extremity. She denies any pain about her bilateral upper extremities. She denies any numbness or tingling in the right foot. She lives at home, she does not use any assistive device at baseline. She denies any head injury or loss of consciousness when she fell. She does note that she had a similar fall several days prior to this fall when she slipped on the deck. Allergies Allergy/AdvReac Type Severity Reaction Status Date / Time venlafaxine Allergy Severe severe Verified 08/08/22 08:29 cough, throat tightness nickel Allergy Mild Rash Verified 08/08/22 08:29 Home Medications Medication Instructions Recorded Confirmed Type pantoprazole 20 mg tablet,delayed 20 mg PO QAM 07/06/20 06/28/24 History release cyanocobalamin (vitamin B-12) 100 100 mcg PO QAM 09/13/21 06/28/24 History mcg tablet fluticasone fur. 100 mcg-umeclid 1 inh inhalation QAM 09/13/21 06/28/24 History 62.5 mcg-vilant 25 mcg inhalat.powder (Trelegy Ellipta) aspirin 81 mg capsule 81 mg PO QAM 07/23/22 06/28/24 History diclofenac sodium 1 % topical gel 2 g topical QID PRN neck pain 07/23/22 06/28/24 History atorvastatin 40 mg tablet 40 mg PO QAM 06/28/24 06/28/24 History levothyroxine 125 mcg tablet 175 mcg PO DAILYBB 06/28/24 06/28/24 History losartan 25 mg tablet 25 mg PO DAILY 06/28/24 06/28/24 History metoprolol succinate 50 mg 50 mg PO QAM 06/28/24 06/28/24 History tablet,extended release 24 hr Patient History Medical History (Updated 06/28/24 @ 20:01 by Kristi Shannon MD) Pleurisy last episode 3 yrs ago Chronic neck pain Chronic back pain Hepatic steatosis SANDRA (obstructive sleep apnea) pt states she had sleep study test done was ok--no device Tobacco abuse disorder GERD (gastroesophageal reflux disease) controlled, stable per pt Surgical History History of bilateral tubal ligation History of lumbar surgery History of tooth extraction all top teeth removed and some on bottom History of wisdom tooth extraction History of thoracotomy 1980 @ [facility]--and right lung with chest tube placement--per pt was due to intermittent spontaneous pneumothorax of right lung---pt states she gets intermittent pleurisy (last time was 3 yrs ago) History of colonoscopy History of esophagogastroduodenoscopy (EGD) Family History Mother Pancreatic cancer Father , fatal [place] @ 42 Myocardial infarction Other No family history of adverse response to anesthesia Social History (Updated 06/28/24 @ 20:02 by Kristi Shannon MD) Smoking Status: Former smoker Cigarettes Per Day: 3; Second Hand Exposure: No; Do You Dip or Chew Tobacco: No; Hx Alcohol Use: No Hx Substance Use: No Preferred Language: Sammarinese Communication Ability: Effective 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 Physical Exam Constitutional: Well-nourished, well-appearing, no acute distress Musculoskeletal: Right lower extremity: -The skin about the right lower extremit y is clean, dry, and intact. There is no significant erythema. There is some ecchymosis noted about the medial and lateral aspects of the right ankle. -The patient is tender to palpation abou t the medial and lateral aspects of the right ankle along the medial and lateral malleoli. She is nontender to palpation about the fifth metatarsal. Is not tender to palpation about the proximal fibula or tibia. She is nontender palpation about the knee, thigh, or hip. -The patient is able to actively flex he r right knee and hip without pain. -DP/PT pulses palpable -Sensation intact to light touch L4-S1 d ermatomes -EHL/FHL motor intact. Deferred ankle r cesia of motion testing secondary to acute ankle fracture. -Upon my arrival the patient was in a ri ght short leg splint, this was removed the skin was inspected there was some pressure along the medial aspect of the ankle at the medial malleoli fracture site however there was no blanching or erythema to the skin, nor any tenting. -Post repeat reduction and splinting cap illary refill was less than 3 seconds in the exposed toes and the patient was able to actively flex and extend her great toe. A brief secondary survey was performed. There is no tenderness or pain to palpation about the major joints or long bones of the bilateral upper extremities. The patient is able to actively flex and extend the shoulders, elbows, wrist, and hands without any significant pain. The skin about the bilateral upper extremities is clean, dry, and intact. The left lower extremity also has no tenderness to palpation about the hip, knee, ankle, or foot. The patient is able to actively flex and extend the left lower extremity without any significant pain. The left lower extremity skin is clean, dry, and intact. Results & Data Vital Signs (Past 12 Hours) Vital Signs Temp Pulse Resp BP BP Pulse Ox O2 Del Method 06/28/24 16:30 86 16 156/81 H 94 Nasal Cannula 06/28/24 16:25 82 11 L 135/75 93 Nasal Cannula 06/28/24 16:20 83 14 130/66 91 Nasal Cannula 06/28/24 16:15 87 12 143/71 H 92 Nasal Cannula 06/28/24 16:10 87 13 143/68 H 91 Nasal Cannula 06/28/24 16:06 94 H 14 171/107 H 94 Nasal Cannula 06/28/24 16:01 93 H 23 181/83 H 94 Nasal Cannula 06/28/24 15:56 108 H 12 202/121 H 96 Nasal Cannula 06/28/24 15:51 105 H 16 219/109 H 94 Nasal Cannula 06/28/24 15:46 91 H 14 150/82 H 94 Nasal Cannula 06/28/24 15:41 92 H 15 159/81 H 93 Nasal Cannula 06/28/24 15:39 91 H 06/28/24 15:35 82 10 L 158/73 H 93 Nasal Cannula 06/28/24 12:00 36.6 C 105 H 18 117/78 93 Room Air O2 Flow Rate 06/28/24 16:30 06/28/24 16:25 2 06/28/24 16:20 2 06/28/24 16:15 2 06/28/24 16:10 2 06/28/24 16:06 2 02/23/25 16:01 6 06/28/24 15:56 6 06/28/24 15:51 6 06/28/24 15:46 6 06/28/24 15:41 6 06/28/24 15:39 06/28/24 15:35 2 06/28/24 12:00 Diagnostic Findings AP, oblique, lateral x-rays of the right foot independently reviewed and interpreted by myself today demonstrate acute displaced fractures of the medial malleolus and lateral malleolus. There is no fracture about the visible bony architecture of the foot. AP, mortise, and lateral x-rays of the right ankle independently reviewed and interpreted by myself today demonstrate an acute displaced and shortened fracture of the lateral malleolus as well as a displaced fracture of the medial malleolus. The talus is laterally subluxed relative to the tibia approximately 75%. There is also questionable mild anterior subluxation of the talus however the lateral is not optimally exposed to definitively say this. AP and lateral x-rays of the right tibia independently reviewed and interpreted by myself today demonstrate the above-noted fractures of the lateral malleolus and medial malleolus of the right ankle. There is no fracture or dislocation of the proximal tibia or fibula. Knee joint is well aligned. Initial post reduction AP and lateral x-rays of the right ankle independently reviewed and interpreted by myself demonstrate improved alignment of the right ankle joint and lateral malleoli are and medial malleoli fractures however there is still lateral subluxation of the talus relative to the tibia is approximately 50% as well as residual displacement of the lateral and medial malleoli are fractures. AP and lateral fluoroscopic x-rays independently reviewed and interpreted by myself today post a second reduction demonstrate improved alignment of the medial and lateral malleoli are fractures. The talus is now fully reduced under the tibia. There is still some mild lateral displacement of the lateral malleolus fracture fragment. The medial malleolar fracture fragment is s ignificantly improved in alignment with minimal displacement (1) Closed right ankle fracture Encounter type: initial encounter Qualified Code(s): S82.891A - Other fracture of right lower leg, initial encounter for closed fracture
[2024-06-28] MEDS: PROPOFOL IV EMULSION 10 MG/ML 20 ML VIAL IV ONE (17:33)
--- NOTE | 2024-06-28 17:46 | Procedure Note ---
Procedure Note Date of Service June 28, 2024 Note Procedure: Right ankle repeat closed reduction with splint application -Informed written consent was obtained from the patient prior to the procedure. We discussed the planned treatment of a repeat closed reduction with splinting of the right ankle. Primary purpose and indication for this was that there was concern that there would be pressure injury to the medial skin of the ankle given the continued lateral talar subluxation and medial malleoli or displacement on postreduction films. I discussed the risk, benefits, and alternatives to this. The risks include need for additional procedures, pain. Alternative was that we could leave the splint in place however I discussed again that there was potential for a skin pressure injury. The patient verbalized understanding and a written consent was signed with the patient. -Discussion was had with the emergency department providers, given the patient's pain level they were agreeable to proceed with repeat sedation. Sedation was performed by the emergency department providers after a multidisciplinary team timeout was performed for the procedure. The correct site, patient, date of , and team members were identified all are in agreement that the right ankle was to be closed reduced and splinted. Sedation was administered. Once adequate sedation was obtained I proceeded with closed reduction of the right ankle and application of an AO short leg splint. I utilized bedside fluoroscopy to ensure adequate reduction which was verified both during reduction as well as post splint application. The patient tolerated the procedure well and there were no immediate complications. Following repeat splinting capillary refill was less than 3 seconds on the exposed toes patient was able to actively flex and extend her great toe Coding
[2024-06-28] MEDS ORDERED: NALOXONE HCL 0.4 MG/1 ML VIAL/CARP IV PRN (19:37)
[2024-06-28] MEDS ORDERED: GABAPENTIN 1200MG ALCOHOL WITHDRAWAL LOAD PO STA (19:45)
[2024-06-28] MEDS ORDERED: DICLOFENAC SOD 1% GEL 100 GM TUBE EXT PRN (19:45)
[2024-06-28] MEDS ORDERED: Ativan PO Alcohol Withdrawal--Active Protocol PO PRN (19:45)
[2024-06-28] MEDS ORDERED: ALBUT/IPRATROP 3MG/0.5MG NEB 3 ML VIAL NEB PRN (19:45)
[2024-06-28] MEDS ORDERED: LORazepam 1 MG TAB PO PRN ×3 (19:45)
[2024-06-28] MEDS: ALBUT/IPRATROP 3MG/0.5MG NEB 3 ML VIAL NEB STA (20:42)
[2024-06-28] MEDS: ACETAMINOPHEN 500 MG TAB PO SCH (20:43)
[2024-06-28] MEDS: GABAPENTIN 600 MG TAB PO ONE (20:43)
[2024-06-28] MEDS: FLUTICASONE/VILANTEROL 100/25MCG 14 PUFFS/INHALER INH SCH (21:06)
[2024-06-28] MEDS: UMECLIDINIUM BROMIDE 62.5MCG/BLISTER 7 PUFFS/INHALER INH SCH (21:06)
[2024-06-29 04:05] LABS: Hematocrit (blood only) 36.1 % (37.0-47.0); Hemoglobin 11.6 g/dl (12.0-16.0); Mean Corpuscular Hemoglobin 30.3 pg (25.0-34.0); Mean Corpuscular Hgb Conc 32.1 g/dL (32.0-36.0); Mean Corpuscular Volume 94.3 fL (80.0-100.0); Mean Platelet Volume 9.3 fL (9.4-12.4); Platelet Count 234 K/uL (130-400); RDW Coefficient of Variation 13.9 % (11.5-14.5); Red Blood Count 3.83 M/uL (4.20-5.40)
[2024-06-29 04:19] LABS: BUN Creatinine Ratio 12.2 (10-20); Calcium 8.6 mg/dl (8.6-10.3); Creatinine Clr Calc Pharmacy 68.9 ml/min; Magnesium 1.8 mg/dl (1.7-2.4); Potassium 3.5 mmol/L (3.5-5.1)
[2024-06-29] MEDS: LEVOTHYROXINE SODIUM 175 MCG TABLET PO SCH (07:01)
[2024-06-29] MEDS: GABAPENTIN 600 MG TAB PO SCH ×2 (07:01→21:18)
--- NOTE | 2024-06-29 08:16 | Fluoroscopy Report ---
FL ankle RT 2V CLINICAL HISTORY: CLOSED REDUCTION RT ANKLE COMPARISON STUDY: 06/28/2024 FLUOROSCOPY TIME: 6 seconds FLUOROSCOPY IMAGES: 2 FINDINGS: Distal tibia and fibula fractures have improved alignment. IMPRESSION: Improved alignment. ACT 112: Negative or not required by law. Electronically signed by: Raoul Neal M.D. 06/29/2024 8:14 AM
[2024-06-29] MEDS: ASPIRIN 81 MG ECTAB PO SCH (09:54)
[2024-06-29] MEDS: PANTOprazole 40 MG TAB PO SCH (09:54)
[2024-06-29] MEDS: THIAMINE HCL 100 MG TAB PO SCH (09:54)
[2024-06-29] MEDS: ENOXAPARIN INJ 40 MG/0.4 ML SYR SQ SCH (09:54)
[2024-06-29] MEDS: METOPROLOL SUCC 50MG EXT REL TAB PO SCH (09:56)
[2024-06-29] MEDS: LOSARTAN POTASSIUM 25 MG TAB PO SCH (09:57)
[2024-06-29] MEDS: ATORVASTATIN 40 MG TAB PO SCH (09:57)
[2024-06-29] MEDS: CYANOCOBALAMIN (B-12) 100 MCG TABLET PO SCH (09:57)
[2024-06-29] MEDS: MoRPHine SULFATE 2 MG/ML CARP IV PRN ×2 (10:07→14:16)
--- NOTE | 2024-06-29 11:05 | Orthopedic Progress Note ---
Date of Service June 29, 2024 Assessment & Plan (1) Closed right ankle fracture: Plan: Findings discussed with patient. Dr. Gongora had fluoroscopic images showing an acceptable alignment. Discussed that this can be treated as an outpatient or inpatient if necessary. If she is able to get around nonweightbearing with crutches or a walker she could be discharged. If not we can keep her here until such occurs or she has surgery. Given the traumatic nature of her injury it could be a few days to up to 2 weeks to allow swelling to dissipate and perform surgery safely. She would require surgical intervention which would consist of plate and screws medial and lateral. We will investigate to see whether her neck implant is stainless steel or titanium. I could use titanium hardware for her ankle. Lovenox for DVT prophylaxis. Admission and Anticipated Discharge Date Admission Date: June 28, 2024 Subjective Patient seen in the ED. Right ankle injury. Patient discussed with Dr. Gongora. He was able to and affect an acceptable closed reduction to prevent skin compromise last evening. Patient reports being lightheaded and dizzy with trying to get up. She reports having significant pain in her right ankle which has limited her mobility. There is no history of prior ankle injuries. Review of Systems Review of Systems: She is not diabetic. She reports having COPD secondary to smoking. She occasionally still smokes. She drinks 3 vodka drinks a day. She has gone as long as 20 days without drinking and has not had alcohol withdrawal symptoms. She denies having a history of bleeding or blood clots. She reports an allergy to nickel. Jewelry does not bother her but she reports having a rash when she had an IV. She has never been tested for nickel allergy. She did have a cervical spine surgery with K2 M implants. We will check and see whether these are steel or titanium. She has never had a staph or MRSA infection. Physical Exam Physical Exam: Her foot is splinted and elevated. Capillary refills less than 2 seconds. DP pulse is not palpable. She can wiggle her toes flex and extend. Results & Data Vital Signs (Past 12 Hours) Vital Signs Pulse Pulse Resp BP BP Pulse Ox O2 Del Method 06/29/24 10:21 109 H 20 120/82 93 Nasal Cannula 06/29/24 07:24 77 06/29/24 07:14 79 14 114/62 93 Nasal Cannula 06/29/24 06:00 82 16 104/61 94 Nasal Cannula 06/29/24 05:03 76 15 102/55 L 94 Nasal Cannula 06/29/24 04:00 71 14 129/63 96 Nasal Cannula 06/29/24 02:11 73 14 125/64 94 Nasal Cannula 06/29/24 01:17 80 16 119/60 95 Nasal Cannula 06/29/24 01:17 76 16 119/60 95 Nasal Cannula 06/28/24 23:46 69 18 120/61 94 Nasal Cannula O2 Flow Rate 06/29/24 10:21 2 06/29/24 07:24 06/29/24 07:14 2 06/29/24 06:00 2 06/29/24 05:03 2 06/29/24 04:00 2 06/29/24 02:11 2 06/29/24 01:17 2 06/29/24 01:17 2 06/28/24 23:46 2 Laboratory Results Laboratory Results WBC 7.10 K/ul (4.8-10.8) 06/29/24 03:44 RBC 3.83 M/uL (4.20-5.40) L 06/29/24 03:44 Hgb 11.6 g/dl (12.0-16.0) L 06/29/24 03:44 Hct 36.1 % (37.0-47.0) L 06/29/24 03:44 MCV 94.3 fL (80.0-100.0) 06/29/24 03:44 MCH 30.3 pg (25.0-34.0) 06/29/24 03:44 MCHC 32.1 g/dL (32.0-36.0) 06/29/24 03:44 RDW Std Deviation 48.0 fL (36.4-46.3) H 06/29/24 03:44 RDW Coeff of Angela 13.9 % (11.5-14.5) 06/29/24 03:44 Plt Count 234 K/uL (130-400) 06/29/24 03:44 MPV 9.3 fL (9.4-12.4) L 06/29/24 03:44 Sodium 139 mmol/L (136-145) 06/29/24 03:44 Potassium 3.5 mmol/L (3.5-5.1) 06/29/24 03:44 Chloride 105 mmol/L (98-107) 06/29/24 03:44 Carbon Dioxide 28 mmol/L (21-32) 06/29/24 03:44 Anion Gap 6 (3-11) 06/29/24 03:44 BUN 9 mg/dl (6-23) 06/29/24 03:44 Creatinine 0.74 mg/dl (0.6-1.2) 06/29/24 03:44 Est Cr Clr Drug Dosing 68.9 ml/min 06/29/24 03:44 eGFR 88.62 06/29/24 03:44 BUN/Creatinine Ratio 12.2 (10-20) 06/29/24 03:44 Glucose 97 mg/dl (70-99(Fasting)) 06/29/24 03:44 Lactate 1.0 mmol/L (0.4-2.0) 06/28/24 17:21 Calcium 8.6 mg/dl (8.6-10.3) 06/29/24 03:44 Phosphorus 4.0 mg/dl (2.5-4.9) 06/29/24 03:44 Magnesium 1.8 mg/dl (1.7-2.4) 06/29/24 03:44 Total Bilirubin 0.9 mg/dl (0.2-1.0) 06/28/24 15:45 AST 22 U/L (13-39) 06/28/24 15:45 ALT 27 U/L (7-52) 06/28/24 15:45 Alkaline Phosphatase 76 U/L (34-104) 06/28/24 15:45 Total Protein 7.0 gm/dl (6.0-8.3) 06/28/24 15:45 Albumin 4.3 gm/dl (3.4-5.0) 06/28/24 15:45 Globulin 2.7 gm/dl (2.5-4.0) 06/28/24 15:45 Albumin/Globulin Ratio 1.6 (0.9-2) 06/28/24 15:45 Ethyl Alcohol mg/dL < 10.0 mg/dl (<10.0) 06/28/24 17:21 Impressions Foot X-Ray 06/28/24 13:34 INDICATION: Pain and injury. TECHNIQUE: 3 views of the right tibia/fibula. 3 views of the right ankle. 3 views of the right foot. COMPARISON: No relevant priors. FINDINGS: Evaluation of the right tibia/fibula, right foot and the right ankle. Displaced distal fibular shaft fracture. Displaced medial malleolus fracture. Lateral/anterior subluxation of the talus with respect to the distal tibia. Remaining osseous structures intact. Soft tissue swelling. IMPRESSION: Displaced distal fibular shaft fracture. Displaced medial malleolus fracture. Lateral/anterior subluxation of the talus with respect to the distal tibia. Electronically signed by Noel Monte 06-28-2024 2:27 PM Tibia/Fibula X-Ray 06/28/24 13:34 INDICATION: Pain and injury. TECHNIQUE: 3 views of the right tibia/fibula. 3 views of the right ankle. 3 views of the right foot. COMPARISON: No relevant priors. FINDINGS: Evaluation of the right tibia/fibula, right foot and the right ankle. Displaced distal fibular shaft fracture. Displaced medial malleolus fracture. Lateral/anterior subluxation of the talus with respect to the distal tibia. Remaining osseous structures intact. Soft tissue swelling. IMPRESSION: Displaced distal fibular shaft fracture. Displaced medial malleolus fracture. Lateral/anterior subluxation of the talus with respect to the distal tibia. Electronically signed by Noel Monte 06-28-2024 2:27 PM Ankle X-Ray 06/28/24 15:39 INDICATION: Postreduction evaluation. TECHNIQUE: 2 views of the right ankle. COMPARISON: Radiograph from the same day. FINDINGS/IMPRESSION: Cast obscures fine bony detail. Improved alignment of the ankle mortise with some residual lateral subluxation of the tibiotalar joint. Displaced medial malleolus and distal fibular fractures again noted, some improved alignment however. Electronically signed by Noel Monte 06-28-2024 4:24 PM (1) Closed right ankle fracture Encounter type: initial encounter Qualified Code(s): S82.891A - Other fracture of right lower leg, initial encounter for closed fracture
[2024-06-29] MEDS: KETOROLAC TROMETHAMINE 15 MG/ML VIAL IV ONE (15:24)
--- NOTE | 2024-06-29 15:28 | Electrocardiogram Report ---
Test Reason : Blood Pressure : */* mmHG Vent. Rate : 85 BPM Atrial Rate : 85 BPM P-R Int : 140 ms QRS Dur : 78 ms QT Int : 392 ms P-R-T Axes : 61 47 70 degrees QTcB Int : 466 ms Normal sinus rhythm Nonspecific ST abnormality Abnormal ECG When compared with ECG of 02-Oct-2023 13:56, No significant change was found Confirmed by Donnie Gillis ([id number]) on 06/29/2024 3:27:57 PM Referred By: REFERRED SELF Confirmed By: Donnie Gillis
--- NOTE | 2024-06-29 15:31 | Hospitalist Progress Note ---
Date of Service June 29, 2024 Assessment & Plan (1) Closed right ankle fracture: (2) Acute hypoxemic respiratory failure: (3) COPD (chronic obstructive pulmonary disease): (4) Alcohol dependence: Plan Ms. Ovalle is a 69 year old woman with past medical history remarkable HTN, HLD, alcohol dependence, lumbar radiculopathy, and hypothyroidism admitted for pain management iso bimalleolar ankle fracture Right bimalleolar ankle fracture s/p closed reduction with splinting in ED Mechanical fall Ambulatory dysfunction secondary to above Reports tripping over dog and slipped on Ice --R ankle:Displaced distal fibular shaft fracture. Displaced medial malleolus fracture. Lateral/anterior subluxation of the talus with respect to the distal tibia. -- Nonweightbearing with crutches or a walker -- Appreciate orthopedics input -- Pain control -- PT OT, fall precaution Alcohol dependence: Last drink on 06/27, drinks 3 vodka mixed drinks a day Does not wish to quit nor wants resources Continue gabapentin protocol Continue thiamine Monitor for withdrawal Ativan as needed Acute hypoxic resp failure, suspect secondary to missed inhaler, multiple opioids admin, and pain COPD (chronic obstructive pulmonary disease) Tobacco use Wean off of supplemental oxygen as able Monitor sats to keep sats 88 to 92% Not on CPAP at home Continue home inhalers Hypertension: continue losartan and metoprolol Monitor blood pressure HLD: continue Lipitor Hypothyroidism: recently increased to 125mcg daily Continue levothyroxine Lumbar radicular pain, LEFT L5/S1 pattern S/P lumbar laminectomy Follows pain management, not on chronic opioids or other regimen undergoing eval for TERESA on Gabapentin/Pain meds as above DVT Px Lovenox SQ Code Status Full code Admission and Anticipated Discharge Date Admission Date: June 28, 2024 Subjective Patient is seen and examined at bedside States having right leg pain Also reports headache and back pain today No other complaints Denies any chest pain, dyspnea, nausea, vomiting, abdominal pain Review of Systems Review of Systems: All systems reviewed & are unremarkable except as noted in Subjective Physical Exam Physical Exam: Physical Exam: Vitals signs as noted above General Appearance:Moderately built and nourished, no apparent distress Head: normocephalic, Atraumatic Eyes: normal inspection, EOMI Neck: supple, Trachea midline Respiratory/Chest: Decreased breath sounds, CTA, No accessory muscle use Cardiovascular: S1, S2, No murmur Abdomen/GI:Soft, Non tender, Bowel sounds present Extremities/Musculoskeletal:normal inspection, no edema, Right leg in splint Neurologic/Psych:AAOX3, grossly no focal neurological deficits Skin: normal color, warm Results & Data Results & Data Vital Signs (Past 12 Hours) Vital Signs Pulse Pulse Resp BP BP Pulse Ox O2 Del Method 06/29/24 15:26 105 H 06/29/24 14:15 93 H 22 134/89 95 Nasal Cannula 06/29/24 10:21 109 H 20 120/82 93 Nasal Cannula 06/29/24 07:24 77 06/29/24 07:14 79 14 114/62 93 Nasal Cannula 06/29/24 06:00 82 16 104/61 94 Nasal Cannula 06/29/24 05:03 76 15 102/55 L 94 Nasal Cannula 06/29/24 04:00 71 14 129/63 96 Nasal Cannula O2 Flow Rate 06/29/24 15:26 06/29/24 14:15 2 06/29/24 10:21 2 06/29/24 07:24 06/29/24 07:14 2 06/29/24 06:00 2 06/29/24 05:03 2 06/29/24 04:00 2 Laboratory Results Short CBC 06/28/24 06/29/24 Range/Units 15:45 03:44 WBC 8.90 7.10 (4.8-10.8) K/ul Hgb 13.0 11.6 L (12.0-16.0) g/dl Hct 38.3 36.1 L (37.0-47.0) % Plt Count 288 234 (130-400) K/uL BMP 06/28/24 06/29/24 15:45 03:44 Sodium 137 139 Potassium 3.5 3.5 Chloride 103 105 Carbon Dioxide 24 28 BUN 9 9 Creatinine 0.66 0.74 Glucose 109 H 97 Calcium 9.2 8.6 Liver Function 06/28/24 Range/Units 15:45 Total Bilirubin 0.9 (0.2-1.0) mg/dl AST 22 (13-39) U/L ALT 27 (7-52) U/L Alkaline Phosphatase 76 (34-104) U/L Albumin 4.3 (3.4-5.0) gm/dl (1) Closed right ankle fracture Encounter type: initial encounter Qualified Code(s): S82.891A - Other fracture of right lower leg, initial encounter for closed fracture (3) COPD (chronic obstructive pulmonary disease) COPD type: unspecified COPD Qualified Code(s): J44.9 - Chronic obstructive pulmonary disease, unspecified (4) Alcohol dependence Substance use status: unspecified alcohol-induced disorder Qualified Code(s): F10.29 - Alcohol dependence with unspecified alcohol-induced disorder
[2024-06-29] MEDS: CHOLECALCIFEROL 125 MCG (5,000 UNITS) TAB PO SCH (15:39)
[2024-06-30] MEDS: oxyCODONE HCL IR 5 MG TAB (IMMEDIATE RELEASE) PO PRN (08:16)
--- NOTE | 2024-06-30 08:45 | Pain Management Consultation ---
Date of Consultation June 30, 2024 Assessment & Plan (1) Closed right ankle fracture: Encounter type: initial encounter Qualified Code(s): S82.891A - Other fracture of right lower leg, initial encounter for closed fracture (2) Chronic back pain: Back pain location: low back pain Back pain laterality: unspecified Sciatica presence: unspecified whether sciatica present Qualified Code(s): M54.50 - Low back pain, unspecified; G89.29 - Other chronic pain Plan 1. In regards to right ankle pain, continue postoperative Tylenol, if needed oxycodone, and IV morphine if needed. 2. Gabapentin and Tylenol are providing relief of low back pains. She will follow-up with [facility] pain management on an outpatient basis for further workup and treatment options. Please contact with any questions or concerns. History of Present Illness Attending Physician: Linden Telles MD History of Present Illness This is a 69-year-old female that tripped over her dog and sustained a right bimalleolar ankle fracture on 06/28/2024. She was admitted for pain control and ambulatory dysfunction. The ankle did require reduction and splinting. She states that there is minimal pain in the right ankle at this time but more so a burning along the right great toe. She is taking Tylenol and has taken 2 doses of IV morphine yesterday. Has not required any oral oxycodone. There is plans for an ORIF in 1 to 2 weeks after the swelling has improved. Patient does have a history of chronic low back pain. She describes low back pain radiating into the bilateral hips and intermittent sharp pains down the legs. She states that the pain is aggravated with sleeping and improved with positional changes. She is seeing [facility] pain management for evaluation and workup. No bowel/bladder incontinence, saddle anesthesia, foot drop. Patient does chronically drinks 3 vodka cocktails at night and has been placed on Ativan and gabapentin for withdrawal symptoms. She states that the gabapentin is providing significant relief the low back pain going into the legs. Allergies Allergy/AdvReac Type Severity Reaction Status Date / Time venlafaxine Allergy Severe severe Verified 08/08/22 08:29 cough, throat tightness nickel Allergy Mild Rash Verified 08/08/22 08:29 Home Medications Medication Instructions Recorded Confirmed Type pantoprazole 20 mg tablet,delayed 20 mg PO QAM 07/06/20 06/28/24 History release cyanocobalamin (vitamin B-12) 100 100 mcg PO QAM 09/13/21 06/28/24 History mcg tablet fluticasone fur. 100 mcg-umeclid 1 inh inhalation QAM 09/13/21 06/28/24 History 62.5 mcg-vilant 25 mcg inhalat.powder (Trelegy Ellipta) aspirin 81 mg capsule 81 mg PO QAM 07/23/22 06/28/24 History diclofenac sodium 1 % topical gel 2 g topical QID PRN neck pain 07/23/22 06/28/24 History atorvastatin 40 mg tablet 40 mg PO QAM 06/28/24 06/28/24 History levothyroxine 125 mcg tablet 175 mcg PO DAILYBB 06/28/24 06/28/24 History losartan 25 mg tablet 25 mg PO DAILY 06/28/24 06/28/24 History metoprolol succinate 50 mg 50 mg PO QAM 06/28/24 06/28/24 History tablet,extended release 24 hr Patient History Medical History Pleurisy last episode 3 yrs ago Chronic neck pain Chronic back pain Hepatic steatosis SANDRA (obstructive sleep apnea) pt states she had sleep study test done was ok--no device Tobacco abuse disorder GERD (gastroesophageal reflux disease) controlled, stable per pt Surgical History History of bilateral tubal ligation History of lumbar surgery History of tooth extraction all top teeth removed and some on bottom History of wisdom tooth extraction History of thoracotomy 1980 @ [facility]--and right lung with chest tube placement--per pt was due to intermittent spontaneous pneumothorax of right lung---pt states she gets intermittent pleurisy (last time was 3 yrs ago) History of colonoscopy History of esophagogastroduodenoscopy (EGD) Family History Mother Pancreatic cancer Father , fatal [place] @ 42 Myocardial infarction Other No family history of adverse response to anesthesia Social History Smoking Status: Former smoker Cigarettes Per Day: 3; Second Hand Exposure: No; Do You Dip or Chew Tobacco: No; Hx Alcohol Use: No Hx Substance Use: No Preferred Language: Lithuanian Communication Ability: Effective Bead Wire Taper Required: No Beliefs That Will Affect Care: None marital status: Current Living Situation: Spouse Other Information That Helps Us Care for You: No Feels Safe at Home: Yes Safety Concerns: Feels Safe At This Time Assistive Devices: None Physical Exam Physical Exam: GENERAL: This is a 69-year-old female in no acute distress. HEAD/FACE: Normocephalic and atraumatic. EYES: No drainage or conjunctival injection. ENT: Nose without bleeding or discharge. Oral mucosa moist. NECK: Full ROM without apparent pain. No swelling or masses noted. RESPIRATORY: Patient with unlabored breathing. No signs of respiratory distress. CHEST/AXILLA: Chest movement symmetrical. No deformities noted. ABDOMEN/GI: No distension BACK: Moves without difficulty. Mild tenderness along the midline and SI joints. SKIN: [place], warm and dry. No rash noted. MS/EXTREMITY: Right ankle is splinted. Mild tenderness of the bilateral greater trochanteric bursa. NEURO: Alert and appears oriented. Speech is fluent. Cranial Nerves are grossly intact. PSYCH: Alert, pleasant, affect is calm
--- NOTE | 2024-06-30 09:01 | Orthopedic Progress Note ---
Date of Service June 30, 2024 Assessment & Plan (1) Closed right ankle fracture: Plan: right ankle bimalleolar ankle fracture Reduced and splinted - acceptable alignment based on images. Maintain NWB RLE at all times Ice to right ankle for swelling Elevate right lower extremity to reliev swelling at all times May be out of bed with walker assistance. If sitting in chair, continue to elevate right lower extremity Regular diet as tolerated Will plan to evaluate skin of right ankle tomorrow to determine if potentially ready for ORIF right ankle on . Placed her on the OR schedule for ORIF right ankle on 07/02/24 is skin/swelling allows Will need to be NPO p MN 07/02 Will need to hold AM dose of Lovenox on 07/02/24 Pain control per primary service. Dr. Reyes present for todays visit Informed consent obtained and on chart. Surgical site marked. Will continue to follow. Patient understands and agrees with the plan. Pain management for back pain. Admission and Anticipated Discharge Date Admission Date: June 28, 2024 Subjective Patient is sitting in bed, doing well. Pain controlled Tolerating regular diet Complaining of some back pain - was managing with [facility] as outpatient. Inpatient consult completed. Denies numbness or tingling right ankle. Physical Exam Musculoskeletal: Exam of right lower extremity: splint clean, dry and intact, minimal edema right toes. Wiggles toes freely. Normal sensation, toes are warm and capillary refill less than 2 seconds. Right leg elevated on 2 pillows. Full painless ROM of right knee and hip. Results & Data Vital Signs (Past 12 Hours) Vital Signs Temp Pulse Pulse Resp BP Pulse Ox O2 Del Method 06/30/24 07:28 36.8 C 88 20 102/64 92 Room Air 06/30/24 07:00 87 06/30/24 03:34 36.7 C 89 20 93/60 L 92 Room Air 06/30/24 01:32 Room Air 06/30/24 00:17 36.7 C 90 20 94/52 L 96 Room Air 06/29/24 23:34 86 Laboratory Results Lab Results 06/28/24 06/28/24 06/29/24 Range/Units 15:45 17:21 03:44 WBC 8.90 7.10 (4.8-10.8) K/ul RBC 4.20 3.83 L (4.20-5.40) M/uL Hgb 13.0 11.6 L (12.0-16.0) g/dl Hct 38.3 36.1 L (37.0-47.0) % MCV 91.2 94.3 (80.0-100.0) fL MCH 31.0 30.3 (25.0-34.0) pg MCHC 33.9 32.1 (32.0-36.0) g/dL RDW Std Deviation 45.2 48.0 H (36.4-46.3) fL RDW Coeff of Angela 13.6 13.9 (11.5-14.5) % Plt Count 288 234 (130-400) K/uL MPV 9.9 9.3 L (9.4-12.4) fL Sodium 137 139 (136-145) mmol/L Potassium 3.5 3.5 (3.5-5.1) mmol/L Chloride 103 105 (98-107) mmol/L Carbon Dioxide 24 28 (21-32) mmol/L Anion Gap 10 6 (3-11) BUN 9 9 (6-23) mg/dl Creatinine 0.66 0.74 (0.6-1.2) mg/dl Est Cr Clr Drug Dosing 77.3 68.9 ml/min eGFR 96.09 88.62 BUN/Creatinine Ratio 13.6 12.2 (10-20) Glucose 109 H 97 (70-99(Fasting)) mg/dl Lactate 1.0 (0.4-2.0) mmol/L Calcium 9.2 8.6 (8.6-10.3) mg/dl Phosphorus 3.1 4.0 (2.5-4.9) mg/dl Magnesium 1.7 1.8 (1.7-2.4) mg/dl Total Bilirubin 0.9 (0.2-1.0) mg/dl AST 22 (13-39) U/L ALT 27 (7-52) U/L Alkaline Phosphatase 76 (34-104) U/L Total Protein 7.0 (6.0-8.3) gm/dl Albumin 4.3 (3.4-5.0) gm/dl Globulin 2.7 (2.5-4.0) gm/dl Albumin/Globulin Ratio 1.6 (0.9-2) Ethyl Alcohol mg/dL < 10.0 (<10.0) mg/dl (1) Closed right ankle fracture Encounter type: initial encounter Qualified Code(s): S82.891A - Other fracture of right lower leg, initial encounter for closed fracture
[2024-06-30] MEDS: SODIUM CHLORIDE 0.9% 1,000 ML IV ONE (09:22)
[2024-06-30 10:45] LABS: Hematocrit (blood only) 34.9 % (37.0-47.0); Hemoglobin 11.7 g/dl (12.0-16.0); Mean Corpuscular Hgb Conc 33.5 g/dL (32.0-36.0); Mean Corpuscular Volume 92.6 fL (80.0-100.0); Platelet Count 267 K/uL (130-400); RDW Coefficient of Variation 13.7 % (11.5-14.5); RDW Standard Deviation 46.5 fL (36.4-46.3); Red Blood Count 3.77 M/uL (4.20-5.40); White Blood Count 7.99 K/ul (4.8-10.8)
[2024-06-30 11:00] LABS: BUN Creatinine Ratio 19.7 (10-20); Calcium 8.9 mg/dl (8.6-10.3); Potassium 3.7 mmol/L (3.5-5.1)
--- NOTE | 2024-06-30 16:09 | Hospitalist Progress Note ---
Date of Service June 30, 2024 Assessment & Plan (1) Closed right ankle fracture: (2) Acute hypoxemic respiratory failure: (3) COPD (chronic obstructive pulmonary disease): (4) Alcohol dependence: Plan Ms. Ovalle is a 69 year old woman with past medical history remarkable HTN, HLD, alcohol dependence, lumbar radiculopathy, and hypothyroidism admitted for pain management iso bimalleolar ankle fracture Right bimalleolar ankle fracture s/p closed reduction with splinting in ED Mechanical fall Ambulatory dysfunction secondary to above Age-related osteoporosis with current pathologic fracture, R ankle fracture Reports tripping over dog and slipped on Ice --R ankle:Displaced distal fibular shaft fracture. Displaced medial malleolus fracture. Lateral/anterior subluxation of the talus with respect to the distal tibia. -- Nonweightbearing with crutches or a walker -- Appreciate orthopedics input -- Pain control -- PT OT, fall precaution --Plan for right ankle open reduction internal fixation on --Appreciate pain management input Alcohol dependence: Last drink on 06/27, drinks 3 vodka mixed drinks a day Does not wish to quit nor wants resources Continue gabapentin protocol Continue thiamine Monitor for withdrawal Ativan as needed Currently no signs of alcohol withdrawal Vitamin D deficiency Started on vitamin D supplements Acute hypoxic resp failure, suspect secondary to missed inhaler, multiple opioids admin, and pain COPD (chronic obstructive pulmonary disease) Tobacco use Wean off of supplemental oxygen as able Monitor sats to keep sats 88 to 92% Not on CPAP at home Continue home inhalers Saturating well on room air Hypertension: Continue metoprolol with holding parameters Hold losartan due to low blood pressure today Monitor blood pressure IV fluids HLD: continue Lipitor Hypothyroidism: recently increased to 125mcg daily Continue levothyroxine Lumbar radicular pain, LEFT L5/S1 pattern S/P lumbar laminectomy Follows pain management, not on chronic opioids or other regimen undergoing eval for TERESA on Gabapentin/Pain meds as above DVT Px Lovenox SQ Code Status Full code Admission and Anticipated Discharge Date Admission Date: June 28, 2024 Review of Systems Review of Systems: All systems reviewed & are unremarkable except as noted in Subjective Physical Exam Physical Exam: Physical Exam: Vitals signs as noted above General Appearance:Moderately built and nourished, no apparent distress Head: normocephalic, Atraumatic Eyes: normal inspection, EOMI Neck: supple, Trachea midline Respiratory/Chest: Decreased breath sounds, CTA, No accessory muscle use Cardiovascular: S1, S2, No murmur Abdomen/GI:Soft, Non tender, Bowel sounds present Extremities/Musculoskeletal:normal inspection, no edema, Right leg in splint Neurologic/Psych:AAOX3, grossly no focal neurological deficits Skin: normal color, warm Results & Data Results & Data Vital Signs (Past 12 Hours) Vital Signs Temp Pulse Pulse Resp BP Pulse Ox O2 Del Method 06/30/24 15:18 36.6 C 86 18 90/61 L 92 Room Air 06/30/24 14:00 93 H 06/30/24 11:08 36.5 C 100 H 20 93/62 L 94 Room Air 06/30/24 08:00 Room Air 06/30/24 07:28 36.8 C 88 20 102/64 92 Room Air 06/30/24 07:00 87 Laboratory Results Short CBC 06/30/24 Range/Units 09:41 WBC 7.99 (4.8-10.8) K/ul Hgb 11.7 L (12.0-16.0) g/dl Hct 34.9 L (37.0-47.0) % Plt Count 267 (130-400) K/uL BMP 06/30/24 09:41 Sodium 139 Potassium 3.7 Chloride 105 Carbon Dioxide 26 BUN 12 Creatinine 0.61 Glucose 151 H Calcium 8.9 (1) Closed right ankle fracture Encounter type: initial encounter Qualified Code(s): S82.891A - Other fracture of right lower leg, initial encounter for closed fracture (3) COPD (chronic obstructive pulmonary disease) COPD type: unspecified COPD Qualified Code(s): J44.9 - Chronic obstructive pulmonary disease, unspecified (4) Alcohol dependence Substance use status: unspecified alcohol-induced disorder Qualified Code(s): F10.29 - Alcohol dependence with unspecified alcohol-induced disorder
[2024-07-01] MEDS: GABAPENTIN 600 MG TAB PO SCH (01:33)
[2024-07-01 06:07] LABS: Hematocrit (blood only) 33.4 % (37.0-47.0); Hemoglobin 11.2 g/dl (12.0-16.0); Mean Corpuscular Hemoglobin 31.2 pg (25.0-34.0); Mean Corpuscular Hgb Conc 33.5 g/dL (32.0-36.0); Mean Platelet Volume 9.7 fL (9.4-12.4); Platelet Count 253 K/uL (130-400); RDW Coefficient of Variation 13.7 % (11.5-14.5); RDW Standard Deviation 46.6 fL (36.4-46.3); Red Blood Count 3.59 M/uL (4.20-5.40); White Blood Count 6.13 K/ul (4.8-10.8)
[2024-07-01 06:21] LABS: BUN Creatinine Ratio 15.8 (10-20); Calcium 8.6 mg/dl (8.6-10.3); Creatinine Clr Calc Pharmacy 88.8 ml/min; Magnesium 1.6 mg/dl (1.7-2.4); Potassium 3.9 mmol/L (3.5-5.1)
--- NOTE | 2024-07-01 08:52 | Hospitalist Progress Note ---
Date of Service July 01, 2024 Assessment & Plan (1) Closed right ankle fracture: (2) Acute hypoxemic respiratory failure: (3) COPD (chronic obstructive pulmonary disease): (4) Alcohol dependence: Plan Ms. Ovalle is a 69 yo F with HTN, HLD, alcohol dependence, lumbar ra diculopathy, and hypothyroidism admitted for pain management iso bimalleolar ankle fracture Right bimalleolar ankle fracture s/p closed reduction with splinting in ED Mechanical fall Ambulatory dysfunction secondary to above Age-related osteoporosis with current pathologic fracture, R ankle fracture Reports tripping over dog and slipped on Ice --R ankle:Displaced distal fibular shaft fracture. Displaced medial malleolus fracture. Lateral/anterior subluxation of the talus with respect to the distal tibia. -- Nonweightbearing with crutches or a walker -- Appreciate orthopedics input -- Pain control -- PT OT, fall precaution --Plan for right ankle open reduction internal fixation on --Appreciate pain management input Alcohol dependence: Last drink on 06/27, drinks 3 vodka mixed drinks a day Does not wish to quit nor wants resources Continue gabapentin protocol Continue thiamine Monitor for withdrawal Ativan as needed Currently no signs of alcohol withdrawal Vitamin D deficiency Started on vitamin D supplements Acute hypoxic resp failure, suspect secondary to missed inhaler, multiple opioids admin, and pain COPD (chronic obstructive pulmonary disease) Tobacco use Wean off of supplemental oxygen as able Monitor sats to keep sats 88 to 92% Not on CPAP at home Continue home inhalers Saturating well on room air Hypertension: Continue metoprolol with holding parameters Hold losartan due to low blood pressure Monitor blood pressure IV fluids HLD: continue Lipitor Hypothyroidism: recently increased to 125mcg daily Continue levothyroxine Lumbar radicular pain, LEFT L5/S1 pattern S/P lumbar laminectomy Follows pain management, not on chronic opioids or other regimen undergoing eval for TERESA on Gabapentin/Pain meds as above DVT Px Lovenox SQ Code Status Full code Admission and Anticipated Discharge Date Admission Date: June 28, 2024 Subjective Patient seen in follow up of R ankle fx Orthopedics consulted, following closely - plan for OR tmrw States having right leg pain on and off No other complaints Denies any chest pain, dyspnea, nausea, vomiting, abdominal pain Pt's present at the bedside Review of Systems Review of Systems: All systems reviewed & are unremarkable except as noted in Subjective Physical Exam Physical Exam: General Appearance:Moderately built and nourished, no apparent distress Head: normocephalic, Atraumatic Eyes: normal inspection, EOMI Neck: supple Respiratory/Chest: Decreased breath sounds, CTA, No accessory muscle use Cardiovascular: S1, S2, No murmur Abdomen/GI:Soft, Non tender, Bowel sounds present Extremities/Musculoskeletal:normal inspection, no edema, Right leg in splint Neurologic/Psych:AAOX3, grossly no focal neurological deficits Skin: normal color, warm Results & Data Results & Data Vital Signs (Past 12 Hours) Vital Signs Temp Pulse Pulse Resp BP Pulse Ox O2 Del Method 07/01/24 08:30 36.6 C 83 20 117/68 94 Room Air 07/01/24 07:22 83 07/01/24 03:30 37.4 C 85 20 103/55 L 92 Room Air 06/30/24 23:33 87 06/30/24 23:27 37.3 C 83 20 94/61 L 92 Room Air Laboratory Results 07/01/24 06/30/24 Range/Units 05:24 09:41 WBC 6.13 7.99 (4.8-10.8) K/ul RBC 3.59 L 3.77 L (4.20-5.40) M/uL Hgb 11.2 L 11.7 L (12.0-16.0) g/dl Hct 33.4 L 34.9 L (37.0-47.0) % MCV 93.0 92.6 (80.0-100.0) fL MCH 31.2 31.0 (25.0-34.0) pg MCHC 33.5 33.5 (32.0-36.0) g/dL RDW Std Deviation 46.6 H 46.5 H (36.4-46.3) fL RDW Coeff of Angela 13.7 13.7 (11.5-14.5) % Plt Count 253 267 (130-400) K/uL MPV 9.7 10.0 (9.4-12.4) fL Sodium 139 139 (136-145) mmol/L Potassium 3.9 3.7 (3.5-5.1) mmol/L Chloride 108 H 105 (98-107) mmol/L Carbon Dioxide 25 26 (21-32) mmol/L Anion Gap 6 8 (3-11) BUN 9 12 (6-23) mg/dl Creatinine 0.57 L 0.61 (0.6-1.2) mg/dl Est Cr Clr Drug Dosing 88.8 83.0 ml/min eGFR 99.54 97.93 BUN/Creatinine Ratio 15.8 19.7 (10-20) Glucose 99 151 H (70-99(Fasting)) mg/dl Calcium 8.6 8.9 (8.6-10.3) mg/dl Magnesium 1.6 L (1.7-2.4) mg/dl 25-OH Vitamin D Total 18.3 L (30-100) ng/ml Medications Administered Current Inpatient Medications Acetaminophen (Acetaminophen 500 Mg Tab) 1,000 mg PO Q8H [facility] Stop: 07/28/24 19:59 Last Admin: 07/01/24 05:21 Dose: 1,000 mg Albuterol (Albut/Ipratrop 3mg/0.5mg Neb 3 Ml Vial) 3 ml NEB Q6R PRN; Protocol PRN Reason: Wheezing Stop: 07/28/24 19:44 Aspirin (Aspirin 81 Mg Ectab) 81 mg PO [facility] Stop: 07/29/24 08:59 Last Admin: 06/30/24 08:08 Dose: 81 mg Atorvastatin Calcium (Atorvastatin 40 Mg Tab) 40 mg PO [facility] Stop: 07/29/24 08:59 Last Admin: 06/30/24 08:09 Dose: 40 mg Cyanocobalamin (Cyanocobalamin (B-12) 100 Mcg Tablet) 100 mcg PO [facility] Stop: 07/29/24 08:59 Last Admin: 06/30/24 08:09 Dose: 100 mcg Diclofenac Sodium (Diclofenac Sod 1% Gel 100 Gm Tube) 2 gm EXT QID PRN; Protocol PRN Reason: neck pain Stop: 07/28/24 19:44 Enoxaparin Sodium (Enoxaparin Inj 40 Mg/0.4 Ml Syr) [facility] [place]: 07/29/24 08:59 Last Admin: 06/30/24 08:09 Dose: 40 mg Fluticasone/Vilanterol (Fluticasone/Vilanterol 100/25mcg 14 Puffs/Inhaler) 1 puffs INH DAILY [facility] Stop: 07/28/24 19:59 Last Admin: 06/30/24 08:09 Dose: 1 puffs Gabapentin (Gabapentin 600 Mg Tab) 600 mg PO Q12H [facility] Stop: 07/01/24 12:01 Last Admin: 07/01/24 01:33 Dose: 600 mg Gabapentin (Gabapentin 600 Mg Tab) 600 mg PO Q24H [facility] Stop: 07/02/24 12:01 Levothyroxine Sodium (Levothyroxine Sodium 175 Mcg Tablet) 175 mcg PO DAILYBB [facility] Stop: 07/29/24 06:29 Last Admin: 07/01/24 05:23 Dose: 175 mcg Lorazepam (Lorazepam 1 Mg Tab) 1 mg PO UD PRN; Protocol PRN Reason: EtOH Withdrawal AWSS Score 6,7 Stop: 07/28/24 19:44 Lorazepam (Lorazepam 1 Mg Tab) 3 mg PO ONCE PRN; Protocol PRN Reason: EtOH Withdrawal AWSS Score 10 & above Lorazepam (Lorazepam 1 Mg Tab) 2 mg PO UD PRN; Protocol PRN Reason: EtOH Withdrawal AWSS Score 8,9 Stop: 07/28/24 19:44 Losartan Potassium (Losartan Potassium 25 Mg Tab) 25 mg PO DAILY [facility] Stop: 07/29/24 08:59 Last Admin: 06/30/24 08:08 Dose: 25 mg Magnesium Oxide (Magnesium Oxide 400 Mg Tab) 400 mg PO QAM [facility] Stop: 07/31/24 08:59 Metoprolol Succinate (Metoprolol Succ 50mg Ext Rel Tab) [facility] [place]: 07/29/24 08:59 Last Admin: 06/30/24 08:08 Dose: 50 mg Morphine Sulfate (Morphine Sulfate 2 Mg/Ml Carp) 2 mg IV Q3H PRN PRN Reason: Severe Pain (Scale 7, 8, 9,10) Stop: 07/12/24 19:44 Last Admin: 06/30/24 20:50 Dose: 2 mg Naloxone HCl (Naloxone Hcl 0.4 Mg/1 Ml Vial/Carp) 0.1 mg IV Q5M PRN PRN Reason: Oversedation/Resp Depression Stop: 07/28/24 19:36 Ondansetron HCl (Ondansetron Inj 2 Mg/Ml 2 Ml Vial) 4 mg IV Q6H PRN PRN Reason: Nausea Stop: 07/28/24 19:44 Oxycodone HCl (Oxycodone Hcl Ir 5 Mg Tab (Immediate Release)) 5 mg PO Q4H PRN PRN Reason: Moderate Pain (Scale 4, 5, 6) Stop: 07/12/24 19:44 Last Admin: 07/01/24 05:24 Dose: 5 mg Pantoprazole Sodium (Pantoprazole 40 Mg Tab) 20 mg PO [facility] Stop: 07/29/24 08:59 Last Admin: 06/30/24 08:08 Dose: 20 mg Thiamine HCl (Thiamine Hcl 100 Mg Tab) 100 mg PO [facility] Stop: 07/29/24 08:59 Last Admin: 06/30/24 08:08 Dose: 100 mg Umeclidinium [place] (Umeclidinium [place] 62.5mcg/Blister 7 Puffs/Inhaler) 1 puffs INH [facility] Stop: 07/28/24 19:59 Last Admin: 06/30/24 08:09 Dose: 1 puffs Vitamin D (Cholecalciferol 125 Mcg (5,000 Units) Tab) 125 mcg PO [facility] Stop: 07/29/24 11:14 Last Admin: 06/30/24 08:08 Dose: 125 mcg (1) Closed right ankle fracture Encounter type: initial encounter Qualified Code(s): S82.891A - Other fracture of right lower leg, initial encounter for closed fracture (3) COPD (chronic obstructive pulmonary disease) COPD type: unspecified COPD Qualified Code(s): J44.9 - Chronic obstructive pulmonary disease, unspecified (4) Alcohol dependence Substance use status: unspecified alcohol-induced disorder Qualified Code(s): F10.29 - Alcohol dependence with unspecified alcohol-induced disorder
--- NOTE | 2024-07-01 10:36 | Orthopedic Progress Note ---
Date of Service July 01, 2024 Assessment & Plan (1) Closed right ankle fracture: Plan: Right ankle bimalleolar ankle fracture Reduced and splinted - acceptable alignment based on images. Maintain NWB RLE at all times Ice to right ankle for swelling Elevate right lower extremity to relieve swelling at all times May be out of bed with walker assistance. If sitting in chair, continue to elevate right lower extremity Regular diet as tolerated Plan is to take her to the operating room tomorrow and under anesthesia will look at her skin and if too swollen or fracture blisters present will reapply splint under fluoroscopic guidance to assure that alignment and reduction is maintained. If swelling is adequate and skin is healthy then we will proceed with open reduction internal fixation of the right ankle. Will need to be NPO p MN 07/02 Will need to hold AM dose of Lovenox on 07/02/24 Pain control per primary service. Dr. Reyes present for todays visit Informed consent obtained and on chart. Surgical site marked. Will continue to follow. Patient understands and agrees with the plan. Pain management for back pain. Admission and Anticipated Discharge Date Admission Date: June 28, 2024 Subjective Patient is seen today by Dr. Reyes and myself. States that she did have some increased pain last evening. She also states that it "fell asleep last night". She has been having it elevated on pillows. She has been nonweightbearing. Overall doing fairly well. Denies any numbness or tingling today. Physical Exam Musculoskeletal: Exam of her right lower extremity: The splint is clean, dry and intact. Her leg is elevated on 2 pillows appropriately. She has no edema into her toes. She is able to actively wiggle her toes. She can dorsiflex and plantarflex her toes and hold against resistance with normal strength. Dorsalis pedis pulse was hard to palpate So a Doppler was utilized. It was easily dopplerable. The toes and foot are warm. Capillary refill is less than 2 seconds. Distal sensation is grossly intact today. She is able to independently lift her leg and flex her knee. Results & Data Vital Signs (Past 12 Hours) Vital Signs Temp Pulse Pulse Resp BP Pulse Ox O2 Del Method 07/01/24 08:30 36.6 C 83 20 117/68 94 Room Air 07/01/24 07:22 83 07/01/24 03:30 37.4 C 85 20 103/55 L 92 Room Air 06/30/24 23:33 87 06/30/24 23:27 37.3 C 83 20 94/61 L 92 Room Air Laboratory Results 07/01/24 06/30/24 Range/Units 05:24 09:41 WBC 6.13 7.99 (4.8-10.8) K/ul RBC 3.59 L 3.77 L (4.20-5.40) M/uL Hgb 11.2 L 11.7 L (12.0-16.0) g/dl Hct 33.4 L 34.9 L (37.0-47.0) % MCV 93.0 92.6 (80.0-100.0) fL MCH 31.2 31.0 (25.0-34.0) pg MCHC 33.5 33.5 (32.0-36.0) g/dL RDW Std Deviation 46.6 H 46.5 H (36.4-46.3) fL RDW Coeff of Angela 13.7 13.7 (11.5-14.5) % Plt Count 253 267 (130-400) K/uL MPV 9.7 10.0 (9.4-12.4) fL Sodium 139 139 (136-145) mmol/L Potassium 3.9 3.7 (3.5-5.1) mmol/L Chloride 108 H 105 (98-107) mmol/L Carbon Dioxide 25 26 (21-32) mmol/L Anion Gap 6 8 (3-11) BUN 9 12 (6-23) mg/dl Creatinine 0.57 L 0.61 (0.6-1.2) mg/dl Est Cr Clr Drug Dosing 88.8 83.0 ml/min eGFR 99.54 97.93 BUN/Creatinine Ratio 15.8 19.7 (10-20) Glucose 99 151 H (70-99(Fasting)) mg/dl Calcium 8.6 8.9 (8.6-10.3) mg/dl Magnesium 1.6 L (1.7-2.4) mg/dl 25-OH Vitamin D Total 18.3 L (30-100) ng/ml (1) Closed right ankle fracture Encounter type: initial encounter Qualified Code(s): S82.891A - Other fracture of right lower leg, initial encounter for closed fracture
[2024-07-01] MEDS: MAGNESIUM OXIDE 400 MG TAB PO SCH (13:23)
[2024-07-01] MEDS: ERGOCALCIFEROL 1250 MCG (50,000 UNITS) CAP PO SCH (13:23)
[2024-07-02 06:03] LABS: Hematocrit (blood only) 34.9 % (37.0-47.0); Hemoglobin 11.8 g/dl (12.0-16.0); Mean Corpuscular Hemoglobin 31.2 pg (25.0-34.0); Mean Corpuscular Hgb Conc 33.8 g/dL (32.0-36.0); Mean Corpuscular Volume 92.3 fL (80.0-100.0); Mean Platelet Volume 9.5 fL (9.4-12.4); Platelet Count 300 K/uL (130-400); RDW Coefficient of Variation 13.6 % (11.5-14.5); RDW Standard Deviation 45.7 fL (36.4-46.3); Red Blood Count 3.78 M/uL (4.20-5.40); White Blood Count 5.06 K/ul (4.8-10.8)
[2024-07-02 06:21] LABS: Anion Gap 6 (3-11); BUN Creatinine Ratio 21.3 (10-20); Blood Urea Nitrogen 13 mg/dl (6-23); Calcium 9.3 mg/dl (8.6-10.3); Carbon Dioxide 27 mmol/L (21-32); Chloride 105 mmol/L (98-107); Creatinine Clr Calc Pharmacy 84.5 ml/min; Glucose 110 mg/dl (70-99(Fasting)); Magnesium 1.8 mg/dl (1.7-2.4); Phosphorus 4.5 mg/dl (2.5-4.9); Sodium 138 mmol/L (136-145)
[2024-07-02] MEDS ORDERED: ROPIVACAINE 0.5% 5 MG/ML 30 ML VIAL ONE (06:35)
[2024-07-02] MEDS ORDERED: EPINEPHrine INJ 1 MG/ML AMP ONE (07:06)
[2024-07-02] MEDS ORDERED: BUPIVACAINE 0.25% PF 30 ML VIAL ONE (07:06)
--- NOTE | 2024-07-02 10:05 | History & Physical Bridge Note ---
Date of Service July 02, 2024 History & Physical Bridge Note I have examined the patient, reviewed the History & Physical and in the interval since the performance of the History & Physical I have noted the following changes of clinical significance: no changes noted. Discussed with patient that we will evaluate her ankle in the operating room with pain control to ensure the swelling is appropriate and proceed or not accordingly.
[2024-07-02] MEDS ORDERED: fentaNYL citrate PF 100 MCG/2 ML VIAL ONE ×4 (10:54→13:33)
[2024-07-02] MEDS ORDERED: MIDAZOLAM HCL 1 MG/ML 2ML VIAL ONE (10:54)
[2024-07-02] MEDS ORDERED: ROCURONIUM BROMIDE 10 MG/ML 5 ML VIAL IV ONE (10:54)
[2024-07-02] MEDS ORDERED: PROPOFOL IV EMULSION 10 MG/ML 20 ML VIAL IV ONE (10:54)
[2024-07-02] MEDS ORDERED: ATROPINE SULFATE 0.1 MG/ML 10ML SYR IV PRN (11:06)
[2024-07-02] MEDS ORDERED: ePHEDrine sulfate 50 MG/ML AMP IV PRN (11:06)
[2024-07-02] MEDS ORDERED: HYDROmorphone INJ 1 MG/ML SYRINGE IV PRN (11:06)
--- NOTE | 2024-07-02 11:06 | Anesthesiology Consultation ---
Date of Service July 02, 2024 Assessment & Plan Chart Review Chart Review: Acceptable Risk for Surgery and Patient NOT seen in Pre Admission Testing ASA ASA3 Proposed Anesthesia Anesthesia Type: General Regional Regional Laterality: Right Site: Popliteal and Adductor Canal Risk / Benefits Reviewed With: PT / POA / Parent / Guardian, Accepts Plan and Informed Consent Obtained History Surgery Operation Date: 07/02/24 10:35 Proposed Procedures p Right Ankle Open Reduction Internal Fixation - Roddy Reyes MD Height/Weight Height: 5 ft 3 in Weight: 70.9 kg Allergies Allergy/AdvReac Type Severity Reaction Status Date / Time venlafaxine Allergy Severe severe Verified 08/08/22 08:29 cough, throat tightness nickel Allergy Mild Rash Verified 08/08/22 08:29 Medications Home Medications Medication Instructions Recorded Confirmed Last Taken pantoprazole 20 mg tablet,delayed 20 mg PO QAM 07/06/20 06/28/24 08/08/22 07:00 release cyanocobalamin (vitamin B-12) 100 100 mcg PO QAM 09/13/21 06/28/24 08/07/22 07:00 mcg tablet fluticasone fur. 100 mcg-umeclid 1 inh inhalation QA 09/13/21 06/28/24 08/08/22 07:00 62.5 mcg-vilant 25 mcg inhalat.powder (Trelegy Ellipta) aspirin 81 mg capsule 81 mg PO QAM 07/23/22 06/28/24 08/07/22 09:00 diclofenac sodium 1 % topical gel 2 g topical QID PRN neck pain 07/23/22 06/28/24 08/05/22 14:00 atorvastatin 40 mg tablet 40 mg PO QAM 06/28/24 06/28/24 Unknown levothyroxine 125 mcg tablet 175 mcg PO DAILYBB 06/28/24 06/28/24 Unknown losartan 25 mg tablet 25 mg PO DAILY 06/28/24 06/28/24 Unknown metoprolol succinate 50 mg 50 mg PO QAM 06/28/24 06/28/24 Unknown tablet,extended release 24 hr Active Medications Generic Name Dose Route Start Last Admin Trade Name Freq PRN Reason Stop Dose Admin Acetaminophen 1,000 mg 06/28/24 20:00 07/02/24 03:47 Acetaminophen 500 Mg Tab PO 07/28/24 19:59 1,000 mg Q8H NAINA Administration Aspirin 81 mg 06/29/24 09:00 07/01/24 08:53 Aspirin 81 Mg Ectab PO 07/29/24 08:59 81 mg QAM NAINA Administration Atorvastatin Calcium 40 mg 06/29/24 09:00 07/01/24 08:54 Atorvastatin 40 Mg Tab PO 07/29/24 08:59 40 mg QAM NAINA Administration Cyanocobalamin 100 mcg 06/29/24 09:00 07/01/24 08:53 Cyanocobalamin (B-12) 100 Mcg Tablet PO 07/29/24 08:59 100 mcg QAM NAINA Administration Enoxaparin Sodium 40 mg 06/29/24 09:00 07/01/24 08:55 Enoxaparin Inj 40 Mg/0.4 Ml Syr SQ 07/29/24 08:59 40 mg QAM NAINA Administration Ergocalciferol 1,250 mcg 07/01/24 08:45 07/01/24 13:23 Ergocalciferol 1250 Mcg (50,000 Units) Cap PO 07/31/24 08:44 1,250 mcg Q7D NAINA Administration Fluticasone/Vilanterol 1 puffs 06/28/24 20:00 07/01/24 08:56 Fluticasone/Vilanterol 100/25mcg 14 Puffs/Inhaler INH 07/28/24 19:59 1 puffs DAILY NAINA Administration Levothyroxine Sodium 175 mcg 06/29/24 06:30 07/02/24 06:11 Levothyroxine Sodium 175 Mcg Tablet PO 07/29/24 06:29 175 mcg DAILYBB NAINA Administration Losartan Potassium 25 mg 06/29/24 09:00 06/30/24 08:08 Losartan Potassium 25 Mg Tab PO 07/29/24 08:59 25 mg DAILY NAINA Administration Magnesium Oxide 400 mg 07/01/24 09:00 07/01/24 13:23 Magnesium Oxide 400 Mg Tab PO 07/31/24 08:59 400 mg QAM NAINA Administration Metoprolol Succinate 50 mg 06/29/24 09:00 07/01/24 08:53 Metoprolol Succ 50mg Ext Rel Tab PO 07/29/24 08:59 50 mg QAM NAINA Administration Morphine Sulfate 2 mg 06/29/24 14:11 07/01/24 19:54 Morphine Sulfate 2 Mg/Ml Carp IV 07/12/24 19:44 2 mg Q3H PRN Administration Severe Pain (Scale 7, 8, 9,10) Oxycodone HCl 5 mg 06/28/24 19:45 07/02/24 04:27 Oxycodone Hcl Ir 5 Mg Tab (Immediate Release) PO 07/12/24 19:44 5 mg Q4H PRN Administration Moderate Pain (Scale 4, 5, 6) Pantoprazole Sodium 20 mg 06/29/24 09:00 07/01/24 08:53 Pantoprazole 40 Mg Tab PO 07/29/24 08:59 20 mg QAM NAINA Administration Thiamine HCl 100 mg 06/29/24 09:00 07/01/24 08:53 Thiamine Hcl 100 Mg Tab PO 07/29/24 08:59 100 mg QAM NAINA Administration Umeclidinium [place] 1 puffs 06/28/24 20:00 07/01/24 08:56 Umeclidinium [place] 62.5mcg/Blister 7 Puffs/Inhaler INH 07/28/24 19:59 1 puffs QAM NAINA Administration Vitamin D 125 mcg 06/29/24 11:15 06/30/24 08:08 Cholecalciferol 125 Mcg (5,000 Units) Tab PO 07/29/24 11:14 125 mcg QAM NAINA Administration NPO Date Last Intake of Fluids: 07/01/24 Time Last Intake of Fluids: 18:00 Last Intake of Fluids Comment: sip of water with medication Date Last Intake of Solids: 07/01/24 Time Last Intake of Solids: 18:00 Past Medical History Medical History Pleurisy last episode 3 yrs ago Chronic neck pain Chronic back pain Hepatic steatosis SANDRA (obstructive sleep apnea) pt states she had sleep study test done was ok--no device Tobacco abuse disorder GERD (gastroesophageal reflux disease) controlled, stable per pt Exercise / Class Metabolic Activity II 4-5 Yardwork/Stairs/Walk up hill Past Family History Family History Mother Pancreatic cancer Father , fatal [place] @ 42 Myocardial infarction Other No family history of adverse response to anesthesia Past Surgical History Surgical History History of bilateral tubal ligation History of lumbar surgery History of tooth extraction all top teeth removed and some on bottom History of wisdom tooth extraction History of thoracotomy 1980 @ [facility]--and right lung with chest tube placement--per pt was due to intermittent spontaneous pneumothorax of right lung---pt states she gets intermittent pleurisy (last time was 3 yrs ago) History of colonoscopy History of esophagogastroduodenoscopy (EGD) Past Anesthesia History No Hx of Anesthesia Complications and No Family Hx of Anesthesia Complications History of PONV No Hx of PONV and No Hx of Motion Sickness Social History Smoking Status: Former smoker tobacco type: e-cigarettes Smoking cigarettes per day: 3 Do You Dip or Chew Tobacco: No Hx Alcohol Use: No Alcohol type: hard liquor alcohol intake frequency: 3 or more drinks per day (6-9 drinks daily) Hx Substance Use: No substance use type: marijuana Last Used Substance: Hours (ago) Last Used Substance Other:: uses every night to help sleep Review of Systems denies fever/cough/ colds/ chest pain/ SOB/ SANDRA denies SANDRA Physical Exam Vital Signs Last Vital Signs Temp 36.7 C 07/02/24 09:48 Pulse 73 07/02/24 09:48 Resp 18 07/02/24 09:48 BP 141/79 H 07/02/24 09:48 Pulse Ox 93 07/02/24 09:48 O2 Del Method Room Air 07/02/24 09:48 O2 Flow Rate 2 06/29/24 15:35 ENMT Mouth: no TMJ abnormality and no dentition abnormality Thyromental Distance: > or= 3.5 Finger Breadths Mallampati Class: II Neck neck extension not limited Respiratory normal respiratory effort; no respiratory distress Auscultation: lungs clear to auscultation bilaterally Cardiovascular Rate/Rhythm: regular rate and regular rhythm Neurologic moves all extremities Psychiatric Orientation: alert and oriented x 3 Testing Laboratory Results 07/02/24 05:24 07/02/24 07:31
[2024-07-02] MEDS ORDERED: LIDOCAINE 2% 2 ML VIAL/AMP(20MG/ML) INFIL ONE ×2 (11:33)
[2024-07-02] MEDS ORDERED: KETAMINE HCL 10MG/ML SYR ONE (12:06)
[2024-07-02] MEDS: TRANEXAMIC ACID / 0.7% NACL 1,000 MG/100 ML BAG IV ONE (12:10)
[2024-07-02] MEDS ORDERED: ceFAZolin 330 MG/ML 1 GM VIAL ONE (12:10)
[2024-07-02] MEDS: ceFAZolin 2000MG 2,000 MG/15 ML SYR IV ONE (12:13)
[2024-07-02] MEDS ORDERED: ONDANSETRON INJ 2 MG/ML 2 ML VIAL ONE (12:30)
[2024-07-02] MEDS ORDERED: DEXAMETHASONE SOD INJ 4 MG/ML VIAL ONE (12:30)
[2024-07-02] MEDS ORDERED: hydrALAZINE HCL 20 MG/ML VIAL ONE (13:17)
[2024-07-02] MEDS ORDERED: SUGAMMADEX SODIUM 200 MG/2 ML VIAL IV ONE (14:09)
[2024-07-02] MEDS ORDERED: PHENYLEPHRINE 100MCG/ML 5ML SYR ONE (14:13)
[2024-07-02] MEDS: VANCOMYCIN HCL 1000MG/20ML VIAL ONE (14:14)
[2024-07-02] MEDS ORDERED: PHENYLEPHRINE HCL 10 MG/ML VIAL ONE (14:29)
--- NOTE | 2024-07-02 14:43 | Fluoroscopy Report ---
FL ankle RT min 3V RTN CLINICAL HISTORY: RIGHT ORIF ANKLE COMPARISON STUDY: None FLUOROSCOPY TIME: 30 seconds FLUOROSCOPY IMAGES: 3 EXPOSURE DOSE: 0.6 mGy FINDINGS: Fluoroscopy was provided for internal fixation of the right ankle. IMPRESSION: Intraoperative fluoroscopy. ACT 112: Negative or not required by law. Electronically signed by: Raoul Neal M.D. 07/02/2024 2:41 PM
--- NOTE | 2024-07-02 14:46 | Operative Report ---
Post Operative Report Pre & Post Diagnosis Operation Date: 07/02/24 10:35 Pre-Op Diagnosis: Closed right Bimalleolar ankle fracture Post-Op Diagnosis: Same I identified the patient and participated in the time-out.: Yes Procedure Operation Date: 07/02/24 10:35 Actual Procedures p Right Ankle Open Reduction Internal Fixation(Right) - Roddy Reyes MD Surgeon Roddy Reyes MD Onion Topper Carlie WHITMORE, Nain Gongora DO, fellow Estimated Blood Loss 5 Findings Consistent with Post-Op Diagnosis Specimens None Anesthesia Type General Regional Complications none Disposition Accompanied Patient To Recovery: No Disposition: Recovery Room Indications Elif is 69 years old. She is 5 days status post a fall resulting in an unstable right ankle bimalleolar fracture. I recommended open reduction internal fixation. She could not safely manage ambulation or pain control at home and she has been in the hospital since her injury. Lovenox was held 24 hours prior to surgery. Description of Procedure Informed consent. Patient identified. She identified the procedure site as the right ankle. I marked with my initials. A preoperative surgical timeout was performed. A preop dose of IV antibiotics was given. She was taken to the operating room positioned supine on the operating room table. A bump was placed under the right hip. A tourniquet on the right thigh. The leg was scrubbed and then prepped and draped in the usual sterile fashion. DVT prophylaxis intraoperatively with mechanical devices. Postop early mobility mechanical devices and Lovenox. Lovenox will begin the morning after surgery.Antibiotics given. TXA given.Bony prominences were inspected and padded. Prior to beginning the surgical procedure and prior to administering any anesthesia and prior to opening the surgical field at [facility] the leg was inspected under light sedation. There was no blistering. She did have 1+ edema but skin wrinkles were present. There was no skin breakdown and I felt that the findings were consistent with proceeding with surgery. Once this was done and then we went ahead with the after mentioned preparation. Prepped and draped in routine sterile fashion. Limb exsanguinated with the Esmarch tourniquet inflated to 250 mmHg. A 10 cm lateral incision was made. Blunt dissection down to the subcutaneous tissues. The superficial peroneal nerve was identified proximally and retracted with the anterior skin flap. Subperiosteal exposure of the distal fibula was done. The fracture site was opened and cleaned of hematoma. It was reduced in an Tomich fashion with an alligator clamp and then fixated with a 2.7 mm titanium lag screw in a bicortical fashion with excellent stability and purchase. This was then neutral ized with a one third tubular 8 hole locking plate. The plate was pre-bent. The patient has a possible allergy to nickel and therefore we use titanium hardware. The plate was aligned radiographically. A proximal bicortical screw was inserted followed by a distal unicortical 4.0 cancellous screw. 2 more unicortical locking screws were placed distally and a bicortical locking and cortical screw were then placed proximally as well. One of the distal locking screws, the more proximal was exchanged for shorter screw. The lag screw was also exchanged from one that was 2 mm shorter. Attention was turned to the medial side where a 5 cm longitudinal incision was made. Blunt dissection was performed down to the skin and subcutaneous tissues. The saphenous neurovascular bundle was identified and protected anteriorly. The fracture site was opened and cleaned of hematoma. The posterior tibial tendon was identified. 2 guidepins were then introduced after reducing the fracture in an anatomic fashion holding it with a bone clamp. The pins were adjusted x 2 to be in the appropriate position fluoroscopically. They were then overreamed and the screws of 46 mm in length. Short threaded titanium 4.0 cannulated screws were inserted. Care was made made to ensure that they were down on bone and did not interfere with the posterior tibial tendon. The syndesmosis was stressed and found to be stable. Endoscopy Technican AP lateral and oblique images were obtained demonstrating good positioning of the hardware reduction of the fractures and intact ankle mortise and syndesmosis. There was no posterior fracture. After the fixation the tourniquet was let down and meticulous hemostasis was performed. Copious irrigation. 1 g of vancomycin powder was divided between both incisions. On the medial side the fascia was largely disrupted and the skin was closed with 3-0 Vicryl followed by sharlene. On the lateral side 0 Vicryl was utilized to close the deep subcutaneous tissues and periosteum taking care to protect the superficial peroneal nerve. The skin was then closed with 3-0 Vicryl and sharlene. The leg was cleaned with wet and dry sponges a saw sterile dressing was applied Xeroform 4 x 4's ABD. ABD on the heel. Soft wrap and a posterior splint with ankle neutral. Patient then awakened from anesthesia difficulty and taken to the recovery in stable condition. There were no specimens or complications. Counts were correct and blood loss is estimated to be 5 cc. At the conclusion of the operation spoke to patient's informed him my findings and postop instruc tions were given. She received TXA preop will be given some postop. She will be nonweightbearing. Follow-up in 2 weeks for wound check and staple removal. Synthes 4.0 cancellous screws and locking one third tubular small fragment plate were utilized. The lag screw was 2.7 mm due to the small size of her bone in that dimension. Titanium hardware. Possible nickel allergy. I attest to the content of the Intraoperative Record and any orders documented therein. Any exceptions are noted below.
[2024-07-02] MEDS: ONDANSETRON INJ 2 MG/ML 2 ML VIAL IV PRN ×2 (15:10→21:14)
[2024-07-02] MEDS: fentaNYL citrate PF 100 MCG/2 ML VIAL IV PRN (15:15)
--- NOTE | 2024-07-02 15:23 | Operative Report ---
Post Operative Report Pre & Post Diagnosis Operation Date: 07/02/24 10:35 Pre-Op Diagnosis: Closed right ankle fracture Post-Op Diagnosis: Closed right ankle fracture I identified the patient and participated in the time-out.: Yes Procedure Operation Date: 07/02/24 10:35 Actual Procedures p Right Ankle Open Reduction Internal Fixation(Right) - Roddy Reyes MD Surgeon Roddy Reyes MD Mining Support Worker Carlie WHITMORE, Nain Gongora DO, fellow Estimated Blood Loss 5 Findings Consistent with Post-Op Diagnosis Specimens None Description of Procedure The patient was brought to the operative suite where she underwent anesthesia. Her splint was removed and the skin was examined. We decided to proceed with surgical intervention at this time. The right lower extremity was prepped and draped in usual sterile fashion. A surgical timeout was performed. The patient underwent a right ankle open reduction internal fixation for bimalleolar ankle fracture. Please see Dr. Reyes's operative report for full details. I was present and assisted with patient positioning, limb positioning, soft tissue retraction, surgical approach, hemostasis, fracture reduction, hardware placement, wound closure, dressing placement, and postoperative splint placement. The patient was awakened and taken to the recovery room in stable condition. I attest to the content of the Intraoperative Record and any orders documented therein. Any exceptions are noted below.
--- NOTE | 2024-07-02 15:43 | Hospitalist Progress Note ---
Date of Service July 02, 2024 Assessment & Plan (1) Closed right ankle fracture: (2) Acute hypoxemic respiratory failure: (3) COPD (chronic obstructive pulmonary disease): (4) Alcohol dependence: Plan Ms. Ovalle is a 69 yo F with HTN, HLD, alcohol dependence, lumbar ra diculopathy, and hypothyroidism admitted for pain management iso bimalleolar ankle fracture Right bimalleolar ankle fracture s/p closed reduction with splinting in ED Mechanical fall Ambulatory dysfunction secondary to above Age-related osteoporosis with current pathologic fracture, R ankle fracture Reports tripping over dog and slipped on Ice --R ankle:Displaced distal fibular shaft fracture. Displaced medial malleolus fracture. Lateral/anterior subluxation of the talus with respect to the distal tibia. -- Nonweightbearing with crutches or a walker -- Appreciate orthopedics input -- Pain control -- PT OT, fall precaution --S/p right ankle open reduction internal fixation (07/02/2024) Dr. Reyes She will be nonweightbearing. Follow-up in 2 weeks for wound check and staple removal. --Appreciate pain management input Alcohol dependence: Last drink on 06/27, drinks 3 vodka mixed drinks a day Does not wish to quit nor wants resources Continue gabapentin protocol Continue thiamine Monitor for withdrawal Ativan as needed Currently no signs of alcohol withdrawal Vitamin D deficiency Started on vitamin D supplements Acute hypoxic resp failure, suspect secondary to missed inhaler, multiple opioids admin, and pain COPD (chronic obstructive pulmonary disease) Tobacco use Wean off of supplemental oxygen as able Monitor sats to keep sats 88 to 92% Not on CPAP at home Continue home inhalers Saturating well on room air Hypertension: Continue metoprolol with holding parameters Hold losartan due to low blood pressure Monitor blood pressure IV fluids HLD: continue Lipitor Hypothyroidism: recently increased to 125mcg daily Continue levothyroxine Lumbar radicular pain, LEFT L5/S1 pattern S/P lumbar laminectomy Follows pain management, not on chronic opioids or other regimen undergoing eval for TERESA on Gabapentin/Pain meds as above DVT Px Lovenox SQ Code Status Full code Admission and Anticipated Discharge Date Admission Date: June 28, 2024 Subjective Patient seen in follow up of R ankle fx Orthopedics consulted, following closely - OR today - pt s/p surgical repair RN at the bedside Pt is having right leg pain No other complaints Denies any chest pain, dyspnea, nausea, vomiting, abdominal pain Review of Systems Review of Systems: All systems reviewed & are unremarkable except as noted in Subjective Physical Exam Physical Exam: General Appearance:Moderately built and nourished, no apparent distress Head: normocephalic, Atraumatic Eyes: normal inspection, EOMI Neck: supple Respiratory/Chest: Decreased breath sounds, CTA, No accessory muscle use Cardiovascular: S1, S2, No murmur Abdomen/GI:Soft, Non tender, Bowel sounds present Extremities/Musculoskeletal:normal inspection, no edema, Right leg in surgical dressings and splint Neurologic/Psych:AAOX3, grossly no focal neurological deficits Skin: normal color, warm Results & Data Results & Data Vital Signs (Past 12 Hours) Vital Signs Temp Pulse Pulse Resp BP Pulse Ox O2 Del Method 07/02/24 09:48 36.7 C 73 18 141/79 H 93 Room Air 07/02/24 07:27 62 07/02/24 07:22 36.3 C L 65 18 114/69 90 Room Air Laboratory Results 07/02/24 07/02/24 Range/Units 07:31 05:24 WBC 5.06 (4.8-10.8) K/ul RBC 3.78 L (4.20-5.40) M/uL Hgb 11.8 L (12.0-16.0) g/dl Hct 34.9 L (37.0-47.0) % MCV 92.3 (80.0-100.0) fL MCH 31.2 (25.0-34.0) pg MCHC 33.8 (32.0-36.0) g/dL RDW Std Deviation 45.7 (36.4-46.3) fL RDW Coeff of Angela 13.6 (11.5-14.5) % Plt Count 300 (130-400) K/uL MPV 9.5 (9.4-12.4) fL Sodium 138 (136-145) mmol/L Potassium 3.8 TNP Chloride 105 (98-107) mmol/L Carbon Dioxide 27 (21-32) mmol/L Anion Gap 6 (3-11) BUN 13 (6-23) mg/dl Creatinine 0.61 (0.6-1.2) mg/dl Est Cr Clr Drug Dosing 84.5 ml/min eGFR 97.93 BUN/Creatinine Ratio 21.3 H (10-20) Glucose 110 H (70-99(Fasting)) mg/dl Calcium 9.3 (8.6-10.3) mg/dl Phosphorus 4.5 (2.5-4.9) mg/dl Magnesium 1.8 (1.7-2.4) mg/dl Medications Administered Current Inpatient Medications Acetaminophen (Acetaminophen 500 Mg Tab) 1,000 mg PO Q8H [facility] Stop: 07/28/24 19:59 Last Admin: 07/02/24 03:47 Dose: 1,000 mg Albuterol (Albut/Ipratrop 3mg/0.5mg Neb 3 Ml Vial) 3 ml NEB Q6R PRN; Protocol PRN Reason: Wheezing Stop: 07/28/24 19:44 Aspirin (Aspirin 81 Mg Ectab) 81 mg PO [facility] Stop: 07/29/24 08:59 Last Admin: 07/01/24 08:53 Dose: 81 mg Atorvastatin Calcium (Atorvastatin 40 Mg Tab) 40 mg PO [facility] Stop: 07/29/24 08:59 Last Admin: 07/01/24 08:54 Dose: 40 mg Atropine Sulfate (Atropine Sulfate 0.1 Mg/Ml 10ml Syr) 0.5 mg IV Q1M PRN PRN Reason: PACU Use-HR<40 &/or Bradycardi Stop: 07/02/24 19:06 Cyanocobalamin (Cyanocobalamin (B-12) 100 Mcg Tablet) 100 mcg PO [facility] Stop: 07/29/24 08:59 Last Admin: 07/01/24 08:53 Dose: 100 mcg Diclofenac Sodium (Diclofenac Sod 1% Gel 100 Gm Tube) 2 gm EXT QID PRN; Protocol PRN Reason: neck pain Stop: 07/28/24 19:44 Enoxaparin Sodium (Enoxaparin Inj 40 Mg/0.4 Ml Syr) 40 mg SQ [facility] Stop: 07/29/24 08:59 Last Admin: 07/01/24 08:55 Dose: 40 mg Ephedrine Sulfate (Ephedrine Sulfate 50 Mg/Ml Amp) 5 mg IV Q5M PRN PRN Reason: PACU Use Only-SBP<90 mmHg Stop: 07/02/24 19:06 Ergocalciferol (Ergocalciferol 1250 Mcg (50,000 Units) Cap) 1,250 mcg PO Q7D [facility] Stop: 07/31/24 08:44 Last Admin: 07/01/24 13:23 Dose: 1,250 mcg Fentanyl Citrate (Fentanyl Citrate Pf 100 Mcg/2 Ml Vial) 50 mcg IV Q5M PRN PRN Reason: PACU Use Only-Pain Stop: 07/02/24 19:07 Last Admin: 07/02/24 15:22 Dose: 50 mcg Fluticasone/Vilanterol (Fluticasone/Vilanterol 100/25mcg 14 Puffs/Inhaler) 1 puffs INH DAILY [facility] Stop: 07/28/24 19:59 Last Admin: 07/01/24 08:56 Dose: 1 puffs Hydromorphone HCl (Hydromorphone Inj 1 Mg/Ml Syringe) 0.25 mg IV Q5M PRN PRN Reason: PACU Use Only-Pain Stop: 07/02/24 19:07 Levothyroxine Sodium (Levothyroxine Sodium 175 Mcg Tablet) [facility] Stop: 07/29/24 06:29 Last Admin: 07/02/24 06:11 Dose: 175 mcg Lorazepam (Lorazepam 1 Mg Tab) 1 mg PO UD PRN; Protocol PRN Reason: EtOH Withdrawal AWSS Score 6,7 Stop: 07/28/24 19:44 Lorazepam (Lorazepam 1 Mg Tab) 3 mg PO ONCE PRN; Protocol PRN Reason: EtOH Withdrawal AWSS Score 10 & above Lorazepam (Lorazepam 1 Mg Tab) 2 mg PO UD PRN; Protocol PRN Reason: EtOH Withdrawal AWSS Score 8,9 Stop: 07/28/24 19:44 Losartan Potassium (Losartan Potassium 25 Mg Tab) 25 mg PO DAILY [facility] Stop: 07/29/24 08:59 Last Admin: 06/30/24 08:08 Dose: 25 mg Magnesium Oxide (Magnesium Oxide 400 Mg Tab) 400 mg PO QAM [facility] Stop: 07/31/24 08:59 Last Admin: 07/01/24 13:23 Dose: 400 mg Metoprolol Succinate (Metoprolol Succ 50mg Ext Rel Tab) 50 mg PO QAM [facility] Stop: 07/29/24 08:59 Last Admin: 07/01/24 08:53 Dose: 50 mg Morphine Sulfate (Morphine Sulfate 2 Mg/Ml Carp) 2 mg IV Q3H PRN PRN Reason: Severe Pain (Scale 7, 8, 9,10) Stop: 07/12/24 19:44 Last Admin: 07/01/24 19:54 Dose: 2 mg Naloxone HCl (Naloxone Hcl 0.4 Mg/1 Ml Vial/Carp) 0.1 mg IV Q5M PRN PRN Reason: Oversedation/Resp Depression Stop: 07/28/24 19:36 Ondansetron HCl (Ondansetron Inj 2 Mg/Ml 2 Ml Vial) 4 mg IV Q6H PRN PRN Reason: Nausea Stop: 07/28/24 19:44 Ondansetron HCl (Ondansetron Inj 2 Mg/Ml 2 Ml Vial) 4 mg IV ONCE PRN PRN Reason: PACU Use Only-Nausea/Vomiting Stop: 07/02/24 19:07 Last Admin: 07/02/24 15:10 Dose: 4 mg Oxycodone HCl (Oxycodone Hcl Ir 5 Mg Tab (Immediate Release)) 5 mg PO Q4H PRN PRN Reason: Moderate Pain (Scale 4, 5, 6) Stop: 07/12/24 19:44 Last Admin: 07/02/24 04:27 Dose: 5 mg Pantoprazole Sodium (Pantoprazole 40 Mg Tab) [facility] Stop: 07/29/24 08:59 Last Admin: 07/01/24 08:53 Dose: 20 mg Thiamine HCl (Thiamine Hcl 100 Mg Tab) 100 mg PO QAM [facility] Stop: 07/29/24 08:59 Last Admin: 07/01/24 08:53 Dose: 100 mg Umeclidinium [place] (Umeclidinium [place] 62.5mcg/Blister 7 Puffs/Inhaler) 1 puffs [facility]H [facility] [place] Stop: 07/28/24 19:59 Last Admin: 07/01/24 08:56 Dose: 1 puffs Vitamin D (Cholecalciferol 125 Mcg (5,000 Units) Tab) 125 mcg PO QAM [facility] Stop: 07/29/24 11:14 Last Admin: 06/30/24 08:08 Dose: 125 mcg (1) Closed right ankle fracture Encounter type: initial encounter Qualified Code(s): S82.891A - Other fracture of right lower leg, initial encounter for closed fracture (3) COPD (chronic obstructive pulmonary disease) COPD type: unspecified COPD Qualified Code(s): J44.9 - Chronic obstructive pulmonary disease, unspecified (4) Alcohol dependence Substance use status: unspecified alcohol-induced disorder Qualified Code(s): F10.29 - Alcohol dependence with unspecified alcohol-induced disorder
--- NOTE | 2024-07-02 16:22 | Anesthesiology Progress Note ---
Date of Service July 02, 2024 Anesthesia Post Procedure Vital Signs Vital Signs: Temp Pulse Pulse Pulse Resp BP Pulse Ox 07/02/24 16:05 76 15 130/67 97 07/02/24 15:55 36.8 C 76 15 107/63 94 07/02/24 15:45 84 18 128/56 L 94 07/02/24 15:35 73 14 118/61 98 07/02/24 15:25 77 12 123/65 95 07/02/24 15:15 94 H 13 151/87 H 100 07/02/24 15:05 98 H 15 156/83 H 98 07/02/24 14:58 36.5 C 105 H 19 157/78 H 95 07/02/24 14:55 36.8 C 76 15 103/55 L 94 07/02/24 09:48 36.7 C 73 18 141/79 H 93 07/02/24 07:27 62 07/02/24 07:22 36.3 C L 65 18 114/69 90 07/02/24 03:28 36.6 C 74 16 112/65 93 07/01/24 23:20 36.6 C 78 16 110/65 90 07/01/24 23:00 73 07/01/24 19:14 36.7 C 83 18 109/72 91 O2 Del Method O2 Flow Rate 07/02/24 16:05 Nasal Cannula 2 07/02/24 15:55 Nasal Cannula 2 07/02/24 15:45 Nasal Cannula 2 07/02/24 15:35 Oxymask 2 07/02/24 15:25 Oxymask 4 07/02/24 15:15 Oxymask 6 07/02/24 15:05 Oxymask 8 07/02/24 14:58 Oxymask 8 07/02/24 14:55 Nasal Cannula 2 07/02/24 09:48 Room Air 07/02/24 07:27 07/02/24 07:22 Room Air 07/02/24 03:28 Room Air 07/01/24 23:20 Room Air 07/01/24 23:00 07/01/24 19:14 Room Air Pain Intensity Right Lower Leg: Pain Intensity: 7 Transfer of Care Handoff Completed per policy Notes Mental Status: alert / awake / arousable Patient Amnestic to Procedure: Yes Nausea / Vomiting: adequately controlled Pain: adequately controlled Airway Patency, RR, SpO2: stable & adequate BP & HR: stable & adequate Hydration State: stable & adequate Anesthetic Complications: no major complications apparent
[2024-07-02] MEDS ORDERED: HYDROmorphone INJ 0.5 MG/0.5 ML SYR IV PRN (16:46)
[2024-07-02] MEDS: HYDROmorphone INJ 1 MG/ML SYRINGE IV PRN (17:14)
[2024-07-02] MEDS: TRANEXAMIC ACID / 0.7% NACL 1000MG/100ML BAG IV ONE (17:59)
[2024-07-02] MEDS: GABAPENTIN 600 MG TAB PO SCH (17:59)
[2024-07-02] MEDS: oxyCODONE HCL IR 5 MG TAB (IMMEDIATE RELEASE) PO PRN (19:45)
[2024-07-02] MEDS: ceFAZolin 1000MG 1,000 MG/7.5 ML SYR IV SCH (20:34)
[2024-07-02] MEDS: DOCUSATE SODIUM 100 MG CAP PO SCH (20:34)
[2024-07-02] MEDS: TRANEXAMIC ACID / 0.7% NACL 1,000 MG/100 ML BAG IV SCH (20:35)
[2024-07-03 06:32] LABS: Hemoglobin 11.8 g/dl (12.0-16.0); Mean Corpuscular Hemoglobin 30.6 pg (25.0-34.0); Mean Corpuscular Hgb Conc 33.7 g/dL (32.0-36.0); Mean Corpuscular Volume 90.9 fL (80.0-100.0); Mean Platelet Volume 9.4 fL (9.4-12.4); Platelet Count 316 K/uL (130-400); RDW Coefficient of Variation 13.5 % (11.5-14.5); RDW Standard Deviation 44.6 fL (36.4-46.3); Red Blood Count 3.85 M/uL (4.20-5.40); White Blood Count 7.62 K/ul (4.8-10.8)
[2024-07-03 06:51] LABS: BUN Creatinine Ratio 25.5 (10-20); Calcium 8.5 mg/dl (8.6-10.3); Creatinine Clr Calc Pharmacy 100.4 ml/min; Magnesium 1.7 mg/dl (1.7-2.4); Phosphorus 4.2 mg/dl (2.5-4.9); Potassium 3.9 mmol/L (3.5-5.1)
--- NOTE | 2024-07-03 11:00 | Orthopedic Progress Note ---
Date of Service July 03, 2024 Assessment & Plan (1) Closed right ankle fracture: Plan: Right ankle bimalleolar ankle fracture: Day 1 status post open reduction internal fixation Maintain NWB RLE at all times Ice to right ankle for swelling Elevate right lower extremity to relieve swelling at all times May be out of bed with walker assistance. If sitting in chair, continue to elevate right lower extremity Regular diet as tolerated Pain control and DVT prophylaxis (Lovenox 40 mg SQ every morning and aspirin p.o.) per primary service. Follow-up with [facility] orthopedics as scheduled. With questions contact our clinic at [phone] Admission and Anticipated Discharge Date Admission Date: June 28, 2024 Subjective This 69-year-old female is day 1 status post right ankle fracture open reduction internal fixation. Patient states that her pain is well-controlled with p.o. pain medication. She states she did have her leg dangling off of the bed and noticed some throbbing sensation so the nurses propped her leg up on a pillow. She states that the pain is easing up now. Currently she denies chest pain, shortness of breath, fever, chills, sweats, nausea, vomiting, diarrhea or difficulty voiding. Patient states that she plans on going to Rehab [facility] at [facility] in [place]. Review of Systems Review of Systems: All systems reviewed & are unremarkable except as noted in Subjective Physical Exam Physical Exam: Right lower extremity: Splint is clean dry and intact left in place. Patient is able to detect light sensation to touch over the pads of all digits. She is able to move all of her digits. There is some mild edema noted at the base of her toes. She is able to easily extend 20 degrees and flex beyond 90 degrees. She is neurovascularly intact right lower extremity. Results & Data Vital Signs (Past 12 Hours) Vital Signs Temp Pulse Pulse Resp BP Pulse Ox O2 Del Method 07/03/24 07:48 76 07/03/24 07:38 36.6 C 70 18 105/68 91 Room Air 07/03/24 03:40 36.9 C 93 H 18 108/61 93 Room Air 07/02/24 23:31 36.6 C 95 H 18 104/65 90 Room Air Diagnostic Findings Laboratory Results WBC 7.62 K/ul (4.8-10.8) 07/03/24 05:29 RBC 3.85 M/uL (4.20-5.40) L 07/03/24 05:29 Hgb 11.8 g/dl (12.0-16.0) L 07/03/24 05:29 Hct 35.0 % (37.0-47.0) L 07/03/24 05:29 MCV 90.9 fL (80.0-100.0) 07/03/24 05:29 MCH 30.6 pg (25.0-34.0) 07/03/24 05:29 MCHC 33.7 g/dL (32.0-36.0) 07/03/24 05:29 RDW Std Deviation 44.6 fL (36.4-46.3) 07/03/24 05:29 RDW Coeff of Angela 13.5 % (11.5-14.5) 07/03/24 05:29 Plt Count 316 K/uL (130-400) 07/03/24 05:29 MPV 9.4 fL (9.4-12.4) 07/03/24 05:29 Sodium 137 mmol/L (136-145) 07/03/24 05:29 Potassium 3.9 mmol/L (3.5-5.1) 07/03/24 05:29 Chloride 103 mmol/L (98-107) 07/03/24 05:29 Carbon Dioxide 26 mmol/L (21-32) 07/03/24 05:29 Anion Gap 8 (3-11) 07/03/24 05:29 BUN 13 mg/dl (6-23) 07/03/24 05:29 Creatinine 0.51 mg/dl (0.6-1.2) L 07/03/24 05:29 Est Cr Clr Drug Dosing 100.4 ml/min 07/03/24 05:29 eGFR 102.25 07/03/24 05:29 BUN/Creatinine Ratio 25.5 (10-20) H 07/03/24 05:29 Glucose 122 mg/dl (70-99(Fasting)) H 07/03/24 05:29 Lactate 1.0 mmol/L (0.4-2.0) 06/28/24 17:21 Calcium 8.5 mg/dl (8.6-10.3) L 07/03/24 05:29 Phosphorus 4.2 mg/dl (2.5-4.9) 07/03/24 05:29 Magnesium 1.7 mg/dl (1.7-2.4) 07/03/24 05:29 Total Bilirubin 0.9 mg/dl (0.2-1.0) 06/28/24 15:45 AST 22 U/L (13-39) 06/28/24 15:45 ALT 27 U/L (7-52) 06/28/24 15:45 Alkaline Phosphatase 76 U/L (34-104) 06/28/24 15:45 Total Protein 7.0 gm/dl (6.0-8.3) 06/28/24 15:45 Albumin 4.3 gm/dl (3.4-5.0) 06/28/24 15:45 Globulin 2.7 gm/dl (2.5-4.0) 06/28/24 15:45 Albumin/Globulin Ratio 1.6 (0.9-2) 06/28/24 15:45 25-OH Vitamin D Total 18.3 ng/ml (30-100) L 06/30/24 09:41 Ethyl Alcohol mg/dL < 10.0 mg/dl (<10.0) 06/28/24 17:21 Impressions Foot X-Ray 06/28/24 13:34 INDICATION: Pain and injury. TECHNIQUE: 3 views of the right tibia/fibula. 3 views of the right ankle. 3 views of the right foot. COMPARISON: No relevant priors. FINDINGS: Evaluation of the right tibia/fibula, right foot and the right ankle. Displaced distal fibular shaft fracture. Displaced medial malleolus fracture. Lateral/anterior subluxation of the talus with respect to the distal tibia. Remaining osseous structures intact. Soft tissue swelling. IMPRESSION: Displaced distal fibular shaft fracture. Displaced medial malleolus fracture. Lateral/anterior subluxation of the talus with respect to the distal tibia. Electronically signed by Noel Monte 06-28-2024 2:27 PM Tibia/Fibula X-Ray 06/28/24 13:34 INDICATION: Pain and injury. TECHNIQUE: 3 views of the right tibia/fibula. 3 views of the right ankle. 3 views of the right foot. COMPARISON: No relevant priors. FINDINGS: Evaluation of the right tibia/fibula, right foot and the right ankle. Displaced distal fibular shaft fracture. Displaced medial malleolus fracture. Lateral/anterior subluxation of the talus with respect to the distal tibia. Remaining osseous structures intact. Soft tissue swelling. IMPRESSION: Displaced distal fibular shaft fracture. Displaced medial malleolus fracture. Lateral/anterior subluxation of the talus with respect to the distal tibia. Electronically signed by Noel Monte 06-28-2024 2:27 PM Ankle X-Ray 07/02/24 10:35 FL ankle RT min 3V RTN CLINICAL HISTORY: RIGHT ORIF ANKLE COMPARISON STUDY: None FLUOROSCOPY TIME: 30 seconds FLUOROSCOPY IMAGES: 3 EXPOSURE DOSE: 0.6 mGy FINDINGS: Fluoroscopy was provided for internal fixation of the right ankle. IMPRESSION: Intraoperative fluoroscopy. ACT 112: Negative or not required by law. Electronically signed by: Raoul Neal M.D. 07/02/2024 2:41 PM (1) Closed right ankle fracture Encounter type: initial encounter Qualified Code(s): S82.891A - Other fracture of right lower leg, initial encounter for closed fracture
--- NOTE | 2024-07-03 18:42 | Hospitalist Progress Note ---
Date of Service July 03, 2024 Assessment & Plan (1) Closed right ankle fracture: (2) Acute hypoxemic respiratory failure: (3) COPD (chronic obstructive pulmonary disease): (4) Alcohol dependence: Plan Ms. Ovalle is a 69 yo F with HTN, HLD, alcohol dependence, lumbar ra diculopathy, and hypothyroidism admitted for pain management iso bimalleolar ankle fracture Right bimalleolar ankle fracture s/p closed reduction with splinting in ED Mechanical fall Ambulatory dysfunction secondary to above Age-related osteoporosis with current pathologic fracture, R ankle fracture Reports tripping over dog and slipped on Ice --R ankle:Displaced distal fibular shaft fracture. Displaced medial malleolus fracture. Lateral/anterior subluxation of the talus with respect to the distal tibia. -- Nonweightbearing with crutches or a walker -- Appreciate orthopedics input -- Pain control -- PT OT, fall precaution --S/p right ankle open reduction internal fixation (07/02/2024) Dr. Reyes She will be nonweightbearing. Follow-up in 2 weeks for wound check and staple removal. Leave splint on. Keep clean and dry. Patient could be switched to Eliquis 2.5 mg p.o. twice daily for DVT prophylaxis if this is more convenient than the Lovenox. With questions contact our clinic at [phone] --Appreciate pain management input Alcohol dependence: Last drink on 06/27, drinks 3 vodka mixed drinks a day Does not wish to quit nor wants resources Continue gabapentin protocol Continue thiamine Monitor for withdrawal Ativan as needed Currently no signs of alcohol withdrawal Vitamin D deficiency Started on vitamin D supplements Acute hypoxic resp failure, suspect secondary to missed inhaler, multiple opioids admin, and pain COPD (chronic obstructive pulmonary disease) Tobacco use Wean off of supplemental oxygen as able Monitor sats to keep sats 88 to 92% Not on CPAP at home Continue home inhalers Saturating well on room air Hypertension: Continue metoprolol with holding parameters Hold losartan due to low blood pressure Monitor blood pressure IV fluids HLD: continue Lipitor Hypothyroidism: recently increased to 125mcg daily Continue levothyroxine Lumbar radicular pain, LEFT L5/S1 pattern S/P lumbar laminectomy Follows pain management, not on chronic opioids or other regimen undergoing eval for TERESA on Gabapentin/Pain meds as above DVT Px - Lovenox SQ Code Status Full code Admission and Anticipated Discharge Date Admission Date: June 28, 2024 Subjective Patient seen in follow up of R ankle fx Orthopedics consulted, following closely - s/p surgical repair yesterday Pt is having right leg pain on and off No other complaints Denies any chest pain, dyspnea, nausea, vomiting, abdominal pain Review of Systems Review of Systems: All systems reviewed & are unremarkable except as noted in Subjective Physical Exam Physical Exam: General Appearance:Moderately built and nourished, no apparent distress Head: normocephalic, Atraumatic Eyes: normal inspection, EOMI Neck: supple Respiratory/Chest: Decreased breath sounds, CTA, No accessory muscle use Cardiovascular: S1, S2, No murmur Abdomen/GI:Soft, Non tender, Bowel sounds present Extremities/Musculoskeletal:normal inspection, no edema, Right leg in surgical dressings and splint Neurologic/Psych:AAOX3, grossly no focal neurological deficits Skin: normal color, warm Results & Data Results & Data Vital Signs (Past 12 Hours) Vital Signs Temp Pulse Pulse Resp BP Pulse Ox O2 Del Method 07/03/24 15:31 36.7 C 83 18 118/68 90 Room Air 07/03/24 11:01 36.7 C 94 H 16 104/70 92 Room Air 07/03/24 07:48 76 07/03/24 07:38 36.6 C 70 18 105/68 91 Room Air Laboratory Results 07/03/24 Range/Units 05:29 WBC 7.62 (4.8-10.8) K/ul RBC 3.85 L (4.20-5.40) M/uL Hgb 11.8 L (12.0-16.0) g/dl Hct 35.0 L (37.0-47.0) % MCV 90.9 (80.0-100.0) fL MCH 30.6 (25.0-34.0) pg MCHC 33.7 (32.0-36.0) g/dL RDW Std Deviation 44.6 (36.4-46.3) fL RDW Coeff of Angela 13.5 (11.5-14.5) % Plt Count 316 (130-400) K/uL MPV 9.4 (9.4-12.4) fL Sodium 137 (136-145) mmol/L Potassium 3.9 (3.5-5.1) mmol/L Chloride 103 (98-107) mmol/L Carbon Dioxide 26 (21-32) mmol/L Anion Gap 8 (3-11) BUN 13 (6-23) mg/dl Creatinine 0.51 L (0.6-1.2) mg/dl Est Cr Clr Drug Dosing 100.4 ml/min eGFR 102.25 BUN/Creatinine Ratio 25.5 H (10-20) Glucose 122 H (70-99(Fasting)) mg/dl Calcium 8.5 L (8.6-10.3) mg/dl Phosphorus 4.2 (2.5-4.9) mg/dl Magnesium 1.7 (1.7-2.4) mg/dl Medications Administered Current Inpatient Medications Acetaminophen (Acetaminophen 500 Mg Tab) 1,000 mg PO Q8H [facility] Stop: 07/28/24 19:59 Last Admin: 07/03/24 12:00 Dose: 1,000 mg Albuterol (Albut/Ipratrop 3mg/0.5mg Neb 3 Ml Vial) 3 ml NEB Q6R PRN; Protocol PRN Reason: Wheezing Stop: 07/28/24 19:44 Aspirin (Aspirin 81 Mg Ectab) 81 mg PO [facility] Stop: 07/29/24 08:59 Last Admin: 07/03/24 09:02 Dose: 81 mg Atorvastatin Calcium (Atorvastatin 40 Mg Tab) 40 mg PO [facility] Stop: 07/29/24 08:59 Last Admin: 07/03/24 09:02 Dose: 40 mg Cyanocobalamin (Cyanocobalamin (B-12) 100 Mcg Tablet) 100 mcg PO [facility] Stop: 07/29/24 08:59 Last Admin: 07/03/24 09:01 Dose: 100 mcg Diclofenac Sodium (Diclofenac Sod 1% Gel 100 Gm Tube) 2 gm EXT QID PRN; Protocol PRN Reason: neck pain Stop: 07/28/24 19:44 Docusate Sodium (Docusate Sodium 100 Mg Cap) 100 mg PO BID [facility] Stop: 08/01/24 20:59 Last Admin: 07/03/24 09:09 Dose: 100 mg Enoxaparin Sodium (Enoxaparin Inj 40 Mg/0.4 Ml Syr) 40 mg SQ [facility] Stop: 07/29/24 08:59 Last Admin: 07/03/24 09:03 Dose: 40 mg Ergocalciferol (Ergocalciferol 1250 Mcg (50,000 Units) Cap) 1,250 mcg PO Q7D [facility] Stop: 07/31/24 08:44 Last Admin: 07/01/24 13:23 Dose: 1,250 mcg Fluticasone/Vilanterol (Fluticasone/Vilanterol 100/25mcg 14 Puffs/Inhaler) 1 puffs INH DAILY [facility] Stop: 07/28/24 19:59 Last Admin: 07/03/24 09:00 Dose: 1 puffs Hydromorphone HCl (Hydromorphone Inj 0.5 Mg/0.5 Ml Syr) 0.5 mg IV Q4H PRN PRN Reason: Pain or Pre PT Stop: 07/16/24 16:45 Hydromorphone HCl (Hydromorphone Inj 1 Mg/Ml Syringe) 1 mg IV Q4H PRN PRN Reason: Pain Stop: 07/16/24 16:45 Last Admin: 07/03/24 11:05 Dose: 1 mg Levothyroxine Sodium (Levothyroxine Sodium 175 Mcg Tablet) 175 mcg PO DAILYBB [facility] Stop: 07/29/24 06:29 Last Admin: 07/03/24 05:40 Dose: 175 mcg Lorazepam (Lorazepam 1 Mg Tab) 1 mg PO UD PRN; Protocol PRN Reason: EtOH Withdrawal AWSS Score 6,7 Stop: 07/28/24 19:44 Lorazepam (Lorazepam 1 Mg Tab) 3 mg PO ONCE PRN; Protocol PRN Reason: EtOH Withdrawal AWSS Score 10 & above Lorazepam (Lorazepam 1 Mg Tab) 2 mg PO UD PRN; Protocol PRN Reason: EtOH Withdrawal AWSS Score 8,9 Stop: 07/28/24 19:44 Losartan Potassium (Losartan Potassium 25 Mg Tab) 25 mg PO DAILY [facility] Stop: 07/29/24 08:59 Last Admin: 06/30/24 08:08 Dose: 25 mg Magnesium Oxide (Magnesium Oxide 400 Mg Tab) 400 mg PO QAM [facility] Stop: 07/31/24 08:59 Last Admin: 07/03/24 09:01 Dose: 400 mg Metoprolol Succinate (Metoprolol Succ 50mg Ext Rel Tab) 50 mg PO QAM [facility] Stop: 07/29/24 08:59 Last Admin: 07/03/24 09:02 Dose: 50 mg Morphine Sulfate (Morphine Sulfate 2 Mg/Ml Carp) 2 mg IV Q3H PRN PRN Reason: Severe Pain (Scale 7, 8, 9,10) Stop: 07/12/24 19:44 Last Admin: 07/01/24 19:54 Dose: 2 mg Ondansetron HCl (Ondansetron Inj 2 Mg/Ml 2 Ml Vial) 4 mg IV Q6H PRN PRN Reason: Nausea Stop: 07/28/24 19:44 Last Admin: 07/02/24 21:14 Dose: 4 mg Oxycodone HCl (Oxycodone Hcl Ir 5 Mg Tab (Immediate Release)) 5 - 10 mg PO Q4H PRN PRN Reason: Pain or Pre PT Stop: 07/16/24 16:45 Last Admin: 07/03/24 09:09 Dose: 10 mg Pantoprazole Sodium ([facility] 40 Mg Tab) [facility]: 07/29/24 08:59 Last Admin: 07/03/24 09:01 Dose: 20 mg Thiamine HCl ([facility] Hcl 100 Mg Tab) [facility] Stop: 07/29/24 08:59 Last Admin: 07/03/24 09:02 Dose: 100 mg Umeclidinium [place] (Umeclidinium [place] 62.5mcg/Blister 7 Puffs/Inhaler) 1 puffs INH [facility] Stop: 07/28/24 19:59 Last Admin: 07/03/24 09:00 Dose: 1 puffs Vitamin D (Cholecalciferol 125 Mcg (5,000 Units) Tab) [facility]: 07/29/24 11:14 Last Admin: 07/03/24 09:12 Dose: 125 mcg (3) COPD (chronic obstructive pulmonary disease) COPD type: unspecified COPD Qualified Code(s): J44.9 - Chronic obstructive pulmonary disease, unspecified
[2024-07-04 06:13] LABS: Hematocrit (blood only) 33.8 % (37.0-47.0); Hemoglobin 11.3 g/dl (12.0-16.0); Mean Corpuscular Hemoglobin 31.1 pg (25.0-34.0); Mean Corpuscular Hgb Conc 33.4 g/dL (32.0-36.0); Mean Corpuscular Volume 93.1 fL (80.0-100.0); Mean Platelet Volume 9.6 fL (9.4-12.4); Platelet Count 330 K/uL (130-400); RDW Coefficient of Variation 13.7 % (11.5-14.5); RDW Standard Deviation 46.6 fL (36.4-46.3); Red Blood Count 3.63 M/uL (4.20-5.40); White Blood Count 6.17 K/ul (4.8-10.8)
[2024-07-04 06:24] LABS: BUN Creatinine Ratio 25.8 (10-20); Calcium 8.5 mg/dl (8.6-10.3); Creatinine Clr Calc Pharmacy 81.5 ml/min; Magnesium 1.9 mg/dl (1.7-2.4); Phosphorus 3.4 mg/dl (2.5-4.9); Potassium 4.1 mmol/L (3.5-5.1)
--- NOTE | 2024-07-04 11:26 | Hospitalist Progress Note ---
Date of Service July 04, 2024 Assessment & Plan (1) Closed right ankle fracture: (2) Acute hypoxemic respiratory failure: (3) COPD (chronic obstructive pulmonary disease): (4) Alcohol dependence: Plan Ms. Ovalle is a 69 yo F with HTN, HLD, alcohol dependence, lumbar radicu lopathy, and hypothyroidism admitted for pain management iso bimalleolar ankle fracture Right bimalleolar ankle fracture s/p closed reduction with splinting in ED Mechanical fall Ambulatory dysfunction secondary to above Age-related osteoporosis with current pathologic fracture, R ankle fracture Reports tripping over dog and slipped on Ice --R ankle:Displaced distal fibular shaft fracture. Displaced medial malleolus fracture. Lateral/anterior subluxation of the talus with respect to the distal tibia. -- Orthopedics consulted -- Pain control -- PT OT, fall precaution --S/p right ankle open reduction internal fixation (07/02/2024) Dr. Reyes She will be nonweightbearing. Follow-up in 2 weeks for wound check and staple removal. Leave splint on. Keep clean and dry. Patient could be switched to Eliquis 2.5 mg p.o. twice daily for DVT prophylaxis if this is more convenient than the Lovenox. With questions contact our clinic at [phone] --Appreciate pain management input Alcohol dependence: Last drink on 06/27, drinks 3 vodka mixed drinks a day Does not wish to quit nor wants resources Finished gabapentin etoh w/d protocol - cont. gabapentin for pain control Continue thiamine Monitor for withdrawal Ativan as needed Currently no signs of alcohol withdrawal Vitamin D deficiency Started on vitamin D supplements Acute hypoxic resp failure, suspect secondary to missed inhaler, multiple opioids admin, and pain COPD (chronic obstructive pulmonary disease) Tobacco use Wean off of supplemental oxygen as able Monitor sats to keep sats 88 to 92% Not on CPAP at home Continue home inhalers Saturating well on room air Hypertension: Continue metoprolol with holding parameters Hold losartan due to low blood pressure Monitor blood pressure IV fluids HLD: continue Lipitor Hypothyroidism: recently increased to 125mcg daily Continue levothyroxine Lumbar radicular pain, LEFT L5/S1 pattern S/P lumbar laminectomy Follows pain management, not on chronic opioids or other regimen undergoing eval for TERESA on Gabapentin/Pain meds as above DVT Px - Lovenox SQ Code Status Full code Admission and Anticipated Discharge Date Admission Date: June 28, 2024 Subjective Patient seen in follow up of R ankle fx Orthopedics consulted, following closely - s/p surgical repair Pt is having right leg pain on and off No other complaints Denies any chest pain, dyspnea, nausea, vomiting, abdominal pain Pt's present at the bedside Review of Systems 2 Review of Systems: All systems reviewed & are unremarkable except as noted in Subjective Physical Exam Physical Exam: General Appearance:Moderately built and nourished, no apparent distress Head: normocephalic, Atraumatic Eyes: normal inspection, EOMI Neck: supple Respiratory/Chest: Decreased breath sounds, CTA, No accessory muscle use Cardiovascular: S1, S2, No murmur Abdomen/GI:Soft, Non tender, Bowel sounds present Extremities/Musculoskeletal:normal inspection, no edema, Right leg in surgical dressings and splint Neurologic/Psych:AAOX3, grossly no focal neurological deficits Skin: normal color, warm Results & Data Results & Data Vital Signs (Past 12 Hours) Vital Signs Temp Pulse Pulse Resp BP Pulse Ox O2 Del Method 07/04/24 08:00 Room Air 07/04/24 07:44 36.7 C 73 18 145/74 H 91 Room Air 07/04/24 07:30 61 07/04/24 03:53 36.7 C 77 16 117/70 93 Room Air Laboratory Results 07/04/24 Range/Units 05:36 WBC 6.17 (4.8-10.8) K/ul RBC 3.63 L (4.20-5.40) M/uL Hgb 11.3 L (12.0-16.0) g/dl Hct 33.8 L (37.0-47.0) % MCV 93.1 (80.0-100.0) fL MCH 31.1 (25.0-34.0) pg MCHC 33.4 (32.0-36.0) g/dL RDW Std Deviation 46.6 H (36.4-46.3) fL RDW Coeff of Angela 13.7 (11.5-14.5) % Plt Count 330 (130-400) K/uL MPV 9.6 (9.4-12.4) fL Sodium 140 (136-145) mmol/L Potassium 4.1 (3.5-5.1) mmol/L Chloride 108 H (98-107) mmol/L Carbon Dioxide 27 (21-32) mmol/L Anion Gap 5 (3-11) BUN 16 (6-23) mg/dl Creatinine 0.62 (0.6-1.2) mg/dl Est Cr Clr Drug Dosing 81.5 ml/min eGFR 97.54 BUN/Creatinine Ratio 25.8 H (10-20) Glucose 101 H (70-99(Fasting)) mg/dl Calcium 8.5 L (8.6-10.3) mg/dl Phosphorus 3.4 (2.5-4.9) mg/dl Magnesium 1.9 (1.7-2.4) mg/dl Medications Administered Current Inpatient Medications Acetaminophen (Acetaminophen 500 Mg Tab) 1,000 mg PO Q8H [facility] Stop: 07/28/24 19:59 Last Admin: 07/04/24 11:19 Dose: 1,000 mg Albuterol (Albut/Ipratrop 3mg/0.5mg Neb 3 Ml Vial) 3 ml NEB Q6R PRN; Protocol PRN Reason: Wheezing Stop: 07/28/24 19:44 Aspirin (Aspirin 81 Mg Ectab) [address] [facility] Stop: 07/29/24 08:59 Last Admin: 07/04/24 08:12 Dose: 81 mg Atorvastatin Calcium (Atorvastatin 40 Mg Tab) [address] [facility] Stop: 07/29/24 08:59 Last Admin: 07/04/24 08:12 Dose: 40 mg Cyanocobalamin (Cyanocobalamin (B-12) 100 Mcg Tablet) [address] [facility] Stop: 07/29/24 08:59 Last Admin: 07/04/24 08:13 Dose: 100 mcg Diclofenac Sodium (Diclofenac Sod 1% Gel 100 Gm Tube) 2 gm EXT QID PRN; Protocol PRN Reason: neck pain Stop: 07/28/24 19:44 Docusate Sodium (Docusate Sodium 100 Mg Cap) 100 mg PO BID [facility] Stop: 08/01/24 20:59 Last Admin: 07/04/24 08:21 Dose: 100 mg Enoxaparin Sodium (Enoxaparin Inj 40 Mg/0.4 Ml Syr) [address] [facility] Stop: 07/29/24 08:59 Last Admin: 07/04/24 08:12 Dose: 40 mg Ergocalciferol (Ergocalciferol 1250 Mcg (50,000 Units) Cap) 1,250 mcg PO Q7D [facility] Stop: 07/31/24 08:44 Last Admin: 07/01/24 13:23 Dose: 1,250 mcg Fluticasone/Vilanterol (Fluticasone/Vilanterol 100/25mcg 14 Puffs/Inhaler) 1 puffs INH DAILY [facility] Stop: 07/28/24 19:59 Last Admin: 07/04/24 08:11 Dose: 1 puffs Hydromorphone HCl (Hydromorphone Inj 0.5 Mg/0.5 Ml Syr) 0.5 mg IV Q4H PRN PRN Reason: Pain or Pre PT Stop: 07/16/24 16:45 Hydromorphone HCl (Hydromorphone Inj 1 Mg/Ml Syringe) 1 mg IV Q4H PRN PRN Reason: Pain Stop: 07/16/24 16:45 Last Admin: 07/03/24 11:05 Dose: 1 mg Levothyroxine Sodium (Levothyroxine Sodium 175 Mcg Tablet) 175 mcg PO DAILYBB [facility] Stop: 07/29/24 06:29 Last Admin: 07/04/24 05:42 Dose: 175 mcg Lorazepam (Lorazepam 1 Mg Tab) 1 mg PO UD PRN; Protocol PRN Reason: EtOH Withdrawal AWSS Score 6,7 Stop: 07/28/24 19:44 Lorazepam (Lorazepam 1 Mg Tab) 3 mg PO ONCE PRN; Protocol PRN Reason: EtOH Withdrawal AWSS Score 10 & above Lorazepam (Lorazepam 1 Mg Tab) 2 mg PO UD PRN; Protocol PRN Reason: EtOH Withdrawal AWSS Score 8,9 Stop: 07/28/24 19:44 Losartan Potassium (Losartan Potassium 25 Mg Tab) 25 mg PO DAILY [facility] Stop: 07/29/24 08:59 Last Admin: 06/30/24 08:08 Dose: 25 mg Magnesium Oxide (Magnesium Oxide 400 Mg Tab) 400 mg PO QAM [facility] Stop: 07/31/24 08:59 Last Admin: 07/04/24 08:11 Dose: 400 mg Metoprolol Succinate (Metoprolol Succ 50mg Ext Rel Tab) 50 mg PO QAM [facility] Stop: 07/29/24 08:59 Last Admin: 07/04/24 08:13 Dose: 50 mg Morphine Sulfate (Morphine Sulfate 2 Mg/Ml Carp) 2 mg IV Q3H PRN PRN Reason: Severe Pain (Scale 7, 8, 9,10) Stop: 07/12/24 19:44 Last Admin: 07/04/24 11:22 Dose: 2 mg Ondansetron HCl (Ondansetron Inj 2 Mg/Ml 2 Ml Vial) 4 mg IV Q6H PRN PRN Reason: Nausea Stop: 07/28/24 19:44 Last Admin: 07/02/24 21:14 Dose: 4 mg Oxycodone HCl (Oxycodone Hcl Ir 5 Mg Tab (Immediate Release)) 5 - 10 mg PO Q4H PRN PRN Reason: Pain or Pre PT Stop: 07/16/24 16:45 Last Admin: 07/04/24 08:22 Dose: 10 mg Pantoprazole Sodium (Pantoprazole 40 Mg Tab) [address] [facility] Stop: 07/29/24 08:59 Last Admin: 07/04/24 08:12 Dose: 20 mg Thiamine HCl (Thiamine Hcl 100 Mg Tab) [address] [facility] Stop: 07/29/24 08:59 Last Admin: 07/04/24 08:13 Dose: 100 mg Umeclidinium [place] (Umeclidinium [place] 62.5mcg/Blister 7 Puffs/Inhaler) [address] [facility] Stop: 07/28/24 19:59 Last Admin: 07/04/24 08:11 Dose: 1 puffs Vitamin D (Cholecalciferol 125 Mcg (5,000 Units) Tab) [facility] [place] Stop: 07/29/24 11:14 Last Admin: 07/04/24 08:12 Dose: 125 mcg (3) COPD (chronic obstructive pulmonary disease) COPD type: unspecified COPD Qualified Code(s): J44.9 - Chronic obstructive pulmonary disease, unspecified
[2024-07-04 20:22] VITALS: RESP 16
[2024-07-04] MEDS: GABAPENTIN 100 MG CAP PO SCH (21:22)
[2024-07-05 03:12] VITALS: BP 104/62; TEMP 97.9; O2SAT 92
[2024-07-05 06:55] VITALS: PULSE 64
--- NOTE | 2024-07-05 09:37 | Discharge Summary ---
Date of Service July 05, 2024 Admission HPI Per Admitting Provider Ms. Ovalle is a 69 year old woman with past medical history remarkable HTN, HLD, alcohol dependence, lumbar radiculopathy, and hypothyroidism who presented to [facility] ED due to right ankle pain after mechanical fall . Patient states she has been in her usual state of health with no concerns. Today, she went to left her dogs out and followed them into the backyard to "keep an eye on them." She turned around to return back into her home when she tripped over one of her dogs and in an attempt to not fall, she stepped, rolled her ankle, and subsequently felt notable pain. She underwent reduction two times in the ED--once by ED physician, and additional time by ortho. Patient states she has no other concerns outside of extreme pain. She takes her medications as prescribed. She smokes about 3 cigarettes a day, but does not wish to discuss further. She also drinks approximately 3 vodka/tonics a day. Her last drink was 06/27. She states she has never had complications with her use and does not wish to quit. Agreeable for gabapentin while admitted for withdrawal management as well as additional pain modality. In the ED, vitals were notable for BP of up to 200 iso pain/reduction, down to 110s s/p multiple analgesic agents, HR of 6-90s, and O2 sat of 90s on NC Imaging revealed displaced distal fibular fracture, medial malleolus fraction, and talus subluxation EKG NSR qtc 466 ED interventions: oxy 5mg, ketamine total 80mg, 100mcg fentanyl total, morphine 10mg total Consultants: Ortho--s/p closed reduction Patient to be admitted to [facility] for further evaluation and management of right closed bimalleolar fracture and pain management Admission Exam Per Admitting Provider GENERAL APPEARANCE: AxOx4, mildly uncomfortable female, no acute distress s/p reduction. HEENT: NC, AT. MMM. EOMI, clear conjunctiva, oropharynx clear. NECK: Supple without lymphadenopathy. No stiffness or restricted ROM. HEART: Normal rate and regular rhythm, normal S1/S1, no m/r/g LUNGS: CTAB, moving air well. No crackles or wheezes are heard. ABDOMEN: Soft, nontender, nondistended with good bowel sounds heard. BACK: No CVAT, no obvious deformity. EXTREMITIES: Without cyanosis, clubbing or edema. right extremity in splint NEUROLOGICAL: Grossly nonfocal. Alert and oriented, moving all 4 extremities. CN not formally tested but appear grossly intact Skin: Warm and dry without any rash. Principal Diagnosis R ankle fracture s/p surg. repair Discharge Exam General Appearance:Moderately built and nourished, no apparent distress Head: normocephalic, Atraumatic Eyes: normal inspection, EOMI Neck: supple Respiratory/Chest: Decreased breath sounds, CTA, No accessory muscle use Cardiovascular: S1, S2, No murmur Abdomen/GI:Soft, Non tender, Bowel sounds present Extremities/Musculoskeletal:normal inspection, no edema, Right leg in surgical dressings and splint Neurologic/Psych:AAOX3, grossly no focal neurological deficits Skin: normal color, warm Discharge Data Allergies Allergy/AdvReac Type Severity Reaction Status Date / Time venlafaxine Allergy Severe severe Verified 08/08/22 08:29 cough, throat tightness nickel Allergy Mild Rash Verified 08/08/22 08:29 Consultations 06/28/24 16:37 ED Decision to Admit Stat 06/28/24 17:40 Consult Orthopedic Surgery Routine 06/29/24 16:43 Consult Pain Management Routine Procedures Performed Operation Date: 07/02/24 10:35 Actual Procedures p Right Ankle Open Reduction Internal Fixation(Right) - Roddy Reyes MD Ordered Studies 06/28/24 FL ankle RT 2V Routine 07/02/24 10:35 FL ankle RT min 3V RTN Routine Hospital Course (1) Closed right ankle fracture: (2) Acute hypoxemic respiratory failure: (3) COPD (chronic obstructive pulmonary disease): (4) Alcohol dependence: Plan Ms. Ovalle is a 69 yo F with HTN, HLD, alcohol dependence, lumbar ra diculopathy, and hypothyroidism admitted for pain management iso bimalleolar ankle fracture Right bimalleolar ankle fracture s/p closed reduction with splinting in ED Mechanical fall Ambulatory dysfunction secondary to above Age-related osteoporosis with current pathologic fracture, R ankle fracture Reports tripping over dog and slipped on Ice --R ankle:Displaced distal fibular shaft fracture. Displaced medial malleolus fracture. Lateral/anterior subluxation of the talus with respect to the distal tibia. -- Orthopedics consulted -- Pain control -- PT OT, fall precaution --S/p right ankle open reduction internal fixation (07/02/2024) Dr. Reyes She will be nonweightbearing. Follow-up in 2 weeks for wound check and staple removal. Leave splint on. Keep clean and dry. Patient could be switched to Eliquis 2.5 mg p.o. twice daily for DVT prophylaxis if this is more convenient than the Lovenox. With questions contact our clinic at [phone] --Appreciate pain management input Alcohol dependence: Last drink on 06/27, drinks 3 vodka mixed drinks a day Does not wish to quit nor wants resources Finished gabapentin etoh w/d protocol - cont. gabapentin for pain control Continue thiamine Monitor for withdrawal Ativan as needed Currently no signs of alcohol withdrawal Vitamin D deficiency Started on vitamin D supplements Acute hypoxic resp failure, suspect secondary to missed inhaler, multiple opioids admin, and pain COPD (chronic obstructive pulmonary disease) Tobacco use Wean off of supplemental oxygen as able Monitor sats to keep sats 88 to 92% Not on CPAP at home Continue home inhalers Saturating well on room air Hypertension: Continue metoprolol with holding parameters Hold losartan due to low blood pressure Monitor blood pressure IV fluids HLD: continue Lipitor Hypothyroidism: recently increased to 125mcg daily Continue levothyroxine Lumbar radicular pain, LEFT L5/S1 pattern S/P lumbar laminectomy Follows pain management, not on chronic opioids or other regimen undergoing eval for TERESA on Gabapentin/Pain meds as above Total Time Total Time Spent Total Time Spent (In Minutes): 40 Discharge Plan Discharge Items Patient Disposition: Transfer Inpatient Rehab Fac Reason For Visit: RIGHT ANKLE FRACTURE,PAIN MGMT Discharge Diagnosis: R ankle fracture s/p surg. repair Activity: Per Instructions section Weightbearing: Right non-weightbearing Weightbearing Comment: With walker or crutches at all times Non-emergency contact: Surgeon Call non-emergency contact if: your symptoms worsen, your pain is not controlled, your temperature is above 101, your wound has increased redness and your wound has increased drainage Follow-up/Referrals: Liliane Pena DO [Primary Care Provider] - Roddy Reyes MD [Surgeon] - 07/17/24 11:30 am Diet: Heart Healthy Addtl Attending Provider Instructions: Follow up with your primary care physician and orthopedic surgeon. Read instructions from orthopedic surgeon below, in detail. Addtl Launch Check Out Provider Instructions: Orthopedic discharge instructions: -Do not bear any weight on your right leg. -Use walker and/or crutches to assist with ambulation. -Keep splint on at all times. Keep it clean and dry. -Ice to right ankle as needed for pain and swelling. -Elevate right lower extremity above your heart to relieve pain and swelling. -Allowed for full range of motion of the toes on your right foot and right knee as tolerated. -Call [phone] with any increased pain, swelling, fevers, chills, questions or concerns. -Follow-up with Dr. Reyes as scheduled approximately 2 weeks after your surgery. -Take your Lovenox daily as an outpatient or Eliquis 2.5 mg twice a day for DVT prophylaxis. Pending Studies at Discharge: No Stand-Alone Forms: My [facility] Skilled Items Patient informed of condition?: Yes DNR: No Discharge Level of Care: Acute rehab Communicable Disease: No Discharge Prognosis: Stable Lines: None Urinary Catheter: Yes Medications and DC Order Prescriptions: New gabapentin 100 mg Capsule 200 mg PO TID 10 Days Qty: 60 0RF magnesium oxide 400 mg (241.3 mg magnesium) Tablet 400 mg PO QAM Qty: 7 0RF docusate sodium 100 mg Capsule 100 mg PO BID 4 Days Qty: 8 0RF oxycodone 5 mg Tablet 10 mg PO Q4H PRN (Reason: pain) Qty: 14 0RF Eliquis 2.5 mg tablet 2.5 mg PO BID Qty: 60 0RF Continued pantoprazole 20 mg tablet,delayed release (DR/EC) 20 mg PO QAM diclofenac sodium 1 % Gel 2 g TOPICAL QID PRN (Reason: neck pain) Rx Instructions: apply to single elbow, wrist or hand; for hand includes palm/fingers/back of hand aspirin 81 mg Capsule 81 mg PO QAM cyanocobalamin (vitamin B-12) 100 mcg Tablet 100 mcg PO QAM Trelegy Ellipta 100-62.5-25 mcg blister with device 1 inh INHALATION QAM atorvastatin 40 mg tablet 40 mg PO QAM levothyroxine 125 mcg tablet 175 mcg PO DAILYBB metoprolol succinate 50 mg tablet extended release 24 hr 50 mg PO QAM Held losartan 25 mg tablet 25 mg PO DAILY Hold Instructions: Resume on 08/11/24. discuss w/ primary care doctor if/ when to resume Discharge Orders: Discharge Order (Routine); Ordered 07/05/24 Ordered By: Fabrizio Langford Admission Data Admit Date/Time: 06/28/24 17:40 Attending Provider: Fabrizio Langford Admit Provider: Kristi Shannon Primary Care Provider: Liliane Pena Other Providers: Katt Franks; Linden Telles; Kristi Shannon; Roddy Reyes; Carlie Vickers
== END 2024-07-05 10:59 | DRG 492 ==
LOC: ED 11:53 → EDINP 17:40 → SUATTDRO 17:40 → 2N 19:44